=== PATIENT | female | born 1955 | race Caucasian/White ===

== ENCOUNTER 2024-10-19 13:15 | Outpatient (AMB) | payer MEDICARE, OTHER, SELFPAY ==
[2024-10-19 13:20] VITALS: BP 134/72; PULSE 68; O2SAT 97; BMI 43.8
--- NOTE | 2024-10-19 13:20 | A.OFFVIS_ITS ---
Vital Signs 10/19/24 13:20 Height 5 ft 6 in Weight 271 lb 2.697 oz BMI 43.8 BP 134/72 Blood Pressure Location Lt brachial Position Sitting Pulse 68 Pulse Source Pulse Oximeter Pulse Oximetry (%) 97 Oxygen Delivery Method Room Air Intake Visit Reasons: Dyspnea Diploma Maker Required: No Emergency Vehicle Operations Instructor: Emergency Vehicle Operations Instructor offered & declined Accompanied by: Self / Same As Patient Allergies amoxicillin Allergy (Verified 10/19/24 13:35) hives ciprofloxacin Allergy (Verified 10/19/24 13:35) Hives latex Allergy (Verified 10/19/24 13:35) vaginal itching Medication List - Last Reconciled 10/19/24 by Zoila Johnson LPN albuterol sulfate 90 mcg/actuation 2 puffs inhalation Q4-6H PRN amlodipine 5 mg PO DAILY cholecalciferol (vitamin D3) 50 mcg PO BID diclofenac sodium 1% (Arthritis Pain (diclofenac)) 2 grams topical QID fluticasone furoate 27.5 mcg/actuation (Children's Flonase Sensimist) 1 spray intranasal DAILY ivermectin 1% 1 appl topical DAILY levothyroxine 75 mcg PO DAILY losartan 50 mg PO DAILY omeprazole 40 mg PO DAILY pravastatin 10 mg PO DAILY HPI Comments Details: The patient is here for a pulmonary evaluation. The patient is a 69 year woman presenting with an abnormal pulmonary function study and CT scan. Apparently the patient has been having worsening shortness of breath. She has a rescue inhaler. She does use it as needed. Typically less than 2 times a week. She did undergo pulmonary function studies at [facility] which I personally reviewed. She appeared to have a mild obstruction consistent with obstructive airway disease in addition to that she had a mild restrictive ventilatory defect consistent with restrictive lung. She also had a mild decrease in the diffusing capacity but corrected to normal when corrected for the alveolar volume that suggest mainly extrinsic cause for the diffusion impairment. The patient also underwent a CT scan after having the abnormal pulmonary function study which I also personally reviewed. It appeared that her trachea appeared to be flat in a little bit consistent with tracheomalacia. This is mainly the mid and distal part of the trachea. In addition to that she has small subcentimeter pulmonary nodules have any follow-up in a year's time. No significant interstitial lung disease except she did have some areas of scarring primarily in the right middle lobe area and also at the bases just some areas of atelectasis and some reticular changes. Although no overt interstitial lung disease appreciated. And no significant ground-glass opacities appreciated. She was feeling much better prior to the appointment but then about a week ago she was eating popcorn and she aspirated some pop according to her lungs. She was coughing a lot she has been coughing significant amount of lately. Last night she did a little better but the night before she did have a hard time sleeping because of cough. She did have some codeine that she could take that helped relieve some of the symptoms. She was able to remove some specks out of the airways which she noticed some specks in her sputum. In the office she does have some wheezing right more than left. Will have her get an x-ray to see if there is any significant collapsibility atelectasis of the lungs from any foreign body. In the meantime though will go ahead and start her on inhaled cortical steroid. And although she has wheezing will avoid systemic steroids since she just recently had surgery of her hand. The patient also provide an aerobika CPT device to try to use it multiple times a day to try to help her with bronchopulmonary hygiene and mucus clearance and hopefully removal of any residual foreign body in her lungs. She will undergo a chest x-ray to assess for any significant findings. If she does have evidence of pneumonia I will send some antibiotics in the pharmacy as well. If the patient shows no improvement of her symptoms then a evaluation with bronchoscopy may be warranted just to look for any persistent foreign bodies. However, will hopefully avoid any semi invasive procedures she is able to clear up her own secretions at this time. [facility] Medical History (Updated 10/19/24 @ 22:09 by Yousuf Thorpe MD) Chronic restrictive lung disease Asthma Pulmonary nodules Social History (Updated 10/19/24 @ 13:28 by Zoila Johnson LPN) Patient Tobacco Use Status: Never used Tobacco Review of Systems Const Denies fever(s) Eyes Reports no additional complaints ENT Reports nasal congestion Card Denies chest pain and Reports dyspnea on exertion Resp Reports chest congestion, Reports cough, Reports dyspnea on exertion and Reports wheezing GI Reports no additional complaints Musc Reports no additional complaints Skin/Breast Denies rash Devin/Lymph Reports no additional complaints Aller/Immun Reports wheezing Physical Exam Vital Signs: Last Vital Signs Pulse 68 10/19/24 13:20 BP 134/72 10/19/24 13:20 Pulse Ox 97 10/19/24 13:20 Oxygen Delivery Method Room Air 10/19/24 13:20 BMI result Body Mass Index 43.8 Const General: comfortable HEENT Head: Yes normocephalic Neck Neck: Yes supple Chest Chest palpation & inspection: normal inspection of the chest Resp Effort & Inspection: normal respiratory effort and prolonged expiratory phase Auscultation: wheezes Cardio Heart sounds: S1 normal heart sound present and S2 normal heart sound present GI Palpation (GI): Soft to palpation Skin General skin exam: no rashes or lesions noted Extrem General: No clubbing and No cyanosis Results Reviewed Results Reviewed: Pwesonally reviewed CT chest from [facility] with pulmonary nodules, minimal areas of a telectasis and scarring, but no overt ILD PFTs, mild mix obstructive/restrictive ventilatory defect Assessment & Plan Assessment & Plan (1) Aspiration into airway: Code(s): T17.908A - Unspecified foreign body in respiratory tract, part unspecified causing other injury, initial encounter Category: Medical Qualifiers: Encounter type: initial encounter Qualified Code(s): T17.908A - Unspecified foreign body in respiratory tract, part unspecified causing other injury, initial encounter (2) Pulmonary nodules: Code(s): R91.8 - Other nonspecific abnormal finding of lung field Category: Medical (3) Asthma: Code(s): J45.909 - Unspecified asthma, uncomplicated Category: Medical Qualifiers: Asthma severity: moderate Asthma persistence: persistent Asthma complication type: with acute exacerbation Qualified Code(s): J45.41 - Moderate persistent asthma with (acute) exacerbation (4) Chronic restrictive lung disease: Comment: multifactorial Code(s): J98.4 - Other disorders of lung Category: Medical Plan start Wixela JOSELUIS as needed provided Aerobika to use 2-4 times aday CXR cough medicine as needed Will need a repeat CT chest to f/u with pulmonary nodules If cough persist and not able to clear FB from the lungs we can consider an airway survey with bronchoscopy F/U 1-2 months Orders: Orders XR chest 2V Today T17.908A - Unspecified foreign body in respiratory tract, part unspecified causing other injury, initial encounter Medications: New codeine-guaifenesin 10-100 mg/5 mL 10 mL PO Q6H 10 days PRN 300 mL 0RF cough fluticasone propion-salmeterol 250-50 mcg/dose (Wixela Inhub) 1 inh inhalation Q12H 30 days 60 ea 11RF budesonide-formoterol 160-4.5 mcg/actuation (Symbicort) 2 puffs inhalation BID 30 days 10.2 grams 11RF J44.89 - Other specified chronic obstructive pulmonary disease Coding Level of Care Code New Pt Level 5 (23949) Diagnoses Aspiration into airway, initial encounter T17.908A Encounter type: initial encounter Pulmonary nodules R91.8 Moderate persistent asthma with acute exacerbation J45.41 Asthma severity: moderate Asthma persistence: persistent Asthma complication type: with acute exacerbation Chronic restrictive lung disease J98.4 Time Spent (min) 60
--- OUTSIDE RECORDS SUMMARY | 2024-10-26 14:23 | XMS_ITS ---
Author Name [facility] Organization Unknown Results Test Name/Text Value Interpretation Date Range Source STONE WEIGHT 0.031g Normal [id number] [facility] T COMPONENT 1 Normal [id number] [facility] History of Medication Use Medication Directions Dispensed Refills Start Date End Date Stat oxyCODONE-acetaminophe n (PERCOCET) 5-325 mg per tablet Take 1 tablet by mouth Every 4 (four) to 6 (six) hours as needed for severe pain. Max Daily Amount: 6 tablets 10/01/2024 11/16/9999 active Potassium Citrate ER 15 MEQ (1620 MG) Tab CR 60 mEq 2 times a day. 07/03/2024 active ivermectin (SOOLANTRA) 1 % cream as needed. 04/09/2024 active oxyCODONE (ROXICODONE) 5 MG immediate release tablet Take 1 tablet (5 mg total) by mouth 4 times daily (every 6 hours) as needed for severe pain. Max Daily Amount: 20 mg 04/09/2024 active docusate sodium (COLACE) 100 MG capsule Take 1 capsule (100 mg total) by mouth 2 (two) times a day. 04/09/2024 active tamsulosin (FLOMAX) 0.4 MG capsule Take 1 capsule (0.4 mg total) by mouth daily. 04/09/2024 active phenazopyridine (PYRIDIUM) 200 MG tablet Take 1 tablet (200 mg total) by mouth 3 (three) times a day in the morning, mid-day and early evening. 04/09/2024 active diclofenac (VOLTAREN) 1 % gel as needed. 04/09/2024 active amLODIPine (NORVASC) 5 MG tablet Take 1 tablet (5 mg total) by mouth nightly. 03/19/2024 active lisinopril (PRINIVIL,ZeSTRIL) 10 MG tablet Take 1 tablet (10 mg total) by mouth daily. 03/05/2024 active amLODIPine (NORVASC) 5 MG tablet TAKE 2 TABLETS BY MOUTH 1 TIME EACH DAY. 03/05/2024 active Potassium Citrate ER 15 MEQ (1620 MG) Tab CR 03/05/2024 active OMEprazole (PriLOSEC) 40 MG capsule Take 1 capsule every day by oral route for 90 days. 03/05/2024 active levothyroxine (SYNTHROID, LEVOTHROID) 75 MCG tablet 03/05/2024 active Cholecalciferol (Vitamin D) 50 MCG (2000 UT) tablet 03/05/2024 active betamethasone acetate-betamethasone sodium phosphate (CELESTONE) injection 3 mg 10/31/2023 active No known medications No known medications 05/22/2023 active ivermectin 1 % cream APPLY ONCE DAILY TO AFFECTED AREA FOR ROSACEA 07/24/2022 active omeprazole (PriLOSEC) 40 mg capsule Take by mouth. 07/24/2022 active diclofenac sodium (VOLTAREN) 1 % gel APPLY TWO GRAMS TO HANDS AND FEET UP TO 4 TIMES A DAY NEEDED 07/24/2022 active lisinopriL (PRINIVIL) 10 mg tablet 10 mg in the morning. 02/14/2023 active swcmreopr-sxrowqlj-plg -hyalur 40-5-3.3 mg tablet daily. 07/24/2022 active levothyroxine (SYNTHROID) 75 mcg tablet Take 75 mcg by mouth. 07/24/2022 active amLODIPine (NORVASC) 5 mg tablet amlodipine 5 mg tablet 07/24/2022 active Problems Problem Status Onset Date Problem Type Date of Resolution Source 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, unspecified osteoarthritis type active [facility]
== END 2024-10-19 14:10 | disposition home or self-care (01) ==
PROVIDERS: PCP Family Medicine; Referring Provider Family Medicine; Visit Provider Hospitalist
DX: T17.920A Food in respiratory tract, part unspecified causing asphyxiation, initial encounter (principal); R91.8 Other nonspecific abnormal finding of lung field; J45.41 Moderate persistent asthma with (acute) exacerbation; J98.4 Other disorders of lung
CPT/HCPCS: 99205

== ENCOUNTER 2024-10-19 13:15 | Outpatient (REF) | payer MEDICARE, OTHER, SELFPAY ==
--- NOTE | ~2024-10-19 | XR_ITS ---
EXAMINATION: XR CHEST CLINICAL INFORMATION: T17.908A - Unspecified foreign body in respiratory tract, part unspecified. COMPARISON: None available. TECHNIQUE: 2 views of the chest were obtained. FINDINGS: Lung volumes are low. There is no gross pneumothorax. Heart size is normal. Multilevel degenerative changes in the thoracic spine. No significant pleural effusion. Minimal linear opacities in the bilateral [id number] lungs, possibly representing subsegmental atelectasis/scar. Prominent left hilar density, possibly prominent nodes. Direct correlation with prior images is recommended and if prior images are provided, an addendum will be dictated. In the absence of prior images, CT scan could be considered for further evaluation. XR/XR chest 2V IMPRESSION: 1. Minimal linear opacities in the bilateral wrz-fq-[id number] lungs, possibly representing subsegmental atelectasis/scar. 2. Prominent left hilar density, possibly representing prominent lymph nodes nodes. Direct correlation with prior images is recommended and if prior images are provided, an addendum will be dictated. In the absence of prior images, CT scan could be considered for further evaluation. This study was presented today October 20, 2024 for interpretation. Stat results provided at this time as requested by referring provider. Electronically signed by: Susie Green MD 10/20/2024 10:28 AM ROB
== END 2024-10-19 13:16 | disposition home or self-care (01) ==
LOC: HO.XRAY 13:15
PROVIDERS: PCP Family Medicine; Referring Provider Family Medicine; Visit Provider Hospitalist
DX: R91.8 Other nonspecific abnormal finding of lung field (principal); T17.908A Unspecified foreign body in respiratory tract, part unspecified causing other injury, initial encounter; J45.41 Moderate persistent asthma with (acute) exacerbation; J98.4 Other disorders of lung
CPT/HCPCS: 71046; 99202

== ENCOUNTER → 2024-10-28 12:16 | Day surgery (SDC) | payer MEDICARE, SELFPAY ==
--- NOTE | 2024-10-26 14:13 | HO.ANESPROP2 ---
Documented by User: Mare Chang NP 10/26/24 14:13 HPI - Anesthesia Eval Consult details Narrative: 69yo F for Bronchoscopy Fiberoptic PMFSH Active Problems Active Problems: All Active Problems Chronic restrictive lung disease (Acute) Asthma (Acute) Pulmonary nodules (Acute) Aspiration into airway (Acute) Past Medical History Medical History Chronic restrictive lung disease Asthma Pulmonary nodules Social History Social History Household Members: Spouse and Children Housing: House Do you presently have visiting nurse or other home services: No Patient Tobacco Use Status: Never used Tobacco service: No Meds Allergies Allergy/AdvReac Type Severity Reaction Status Date / Time amoxicillin Allergy hives Verified 10/28/24 14:35 ciprofloxacin Allergy Hives Verified 10/28/24 14:35 latex Allergy vaginal Verified 10/28/24 14:35 itching Home Medications ?Medication ?Instructions ?Recorded ?Confirmed ?Last Taken ?Type amlodipine 5 mg tablet 5 mg PO DAILY 10/19/24 10/28/24 10/27/24 History cholecalciferol (vitamin D3) 50 50 mcg PO BID 10/19/24 10/28/24 10/27/24 History mcg (2,000 unit) capsule levothyroxine 75 mcg capsule 75 mcg PO DAILY@0600 10/19/24 10/28/24 10/27/24 History losartan 50 mg tablet 50 mg PO DAILY 10/19/24 10/28/24 10/27/24 History omeprazole 40 mg capsule,delayed 40 mg PO DAILY@0630 10/19/24 10/28/24 10/28/24 08:30 History release pravastatin 10 mg tablet 10 mg PO BEDTIME 10/19/24 10/28/24 10/27/24 History codeine 10 mg-guaifenesin 100 mg/5 5 ml PO Q6H PRN cough 10/28/24 10/28/24 10/27/24 History mL oral liquid fluticasone propionate 50 1 spray intranasal DAILY 10/28/24 10/28/24 10/27/24 History mcg/actuation nasal spray,suspension potassium citrate 10 mEq (1,080 20 meq PO TID 10/28/24 10/28/2424 History mg) tablet,extended release Assessment and Plan Assessment Anesthesia Assessment: Chart Reviewed Documented by User: Chichi Yang MD 11/02/24 14:11 PMFSH Past Medical History Medical History Chronic restrictive lung disease Asthma Pulmonary nodules Family History Family history of problems with anesthesia: No Surgical History History of Problems with Anesthesia: No Social History Social History Household Members: Spouse and Children Housing: House Do you presently have visiting nurse or other home services: No Patient Tobacco Use Status: Never used Tobacco service: No Meds Allergies Allergy/AdvReac Type Severity Reaction Status Date / Time amoxicillin Allergy hives Verified 10/28/24 14:35 ciprofloxacin Allergy Hives Verified 10/28/24 14:35 latex Allergy vaginal Verified 10/28/24 14:35 itching Home Medications ?Medication ?Instructions ?Recorded ?Confirmed ?Last Taken ?Type amlodipine 5 mg tablet 5 mg PO DAILY 10/19/24 10/28/24 10/27/24 History cholecalciferol (vitamin D3) 50 50 mcg PO BID 10/19/24 10/28/24 10/27/24 History mcg (2,000 unit) capsule levothyroxine 75 mcg capsule 75 mcg PO DAILY@0600 10/19/24 10/28/24 10/27/24 History losartan 50 mg tablet 50 mg PO DAILY 10/19/24 10/28/24 10/27/24 History omeprazole 40 mg capsule,delayed 40 mg PO DAILY@0630 10/19/24 10/28/24 10/28/24 08:30 History release pravastatin 10 mg tablet 10 mg PO BEDTIME 10/19/24 10/28/24 10/27/24 History codeine 10 mg-guaifenesin 100 mg/5 5 ml PO Q6H PRN cough 10/28/24 10/28/24 10/27/24 History mL oral liquid fluticasone propionate 50 1 spray intranasal DAILY 10/28/24 10/28/24 10/27/24 History mcg/actuation nasal spray,suspension potassium citrate 10 mEq (1,080 20 meq PO TID 10/28/24 10/28/24 10/27/24 History mg) tablet,extended release Exam Airway Mallampati Class: II TM Dist: >3cm Neck ROM: Full Heart: rrr Lungs: cta Assessment and Plan Assessment Anesthesia Assessment: Anesthesia Plan Discussed Final Anesthetic Review Family History of Problems with Anesthesia: No History of Problems with Anesthesia: No NPO: Yes ASA Class: III Final Preanesthetic Review: No Changes in Pt Med Stat, Meds/Allgs Chart Reviewed, Consent Obtained/Reviewed and Anes Risks/Benef Reviewed Patient Risk: Intermediate Procedure Risk: Low Anesthetic Plan Anesthetic Plan: GA
--- NOTE | 2024-10-28 | ECG_ITS ---
Test Reason : New onset arrhythmia Blood Pressure : / mmHG Vent. Rate : 115 BPM Atrial Rate : 241 BPM P-R Int : 000 ms QRS Dur : 082 ms QT Int : 316 ms P-R-T Axes : 086 036 -28 degrees QTc Int : 437 ms Atrial flutter with variable A-V block Baseline wander Abnormal ECG No previous ECGs available Referred By: Isabel Vázquez Electronically Signed By:KASSIE LAZO MD
--- NOTE | 2024-10-28 12:33 | MHC.SHP ---
Pre-Procedural Eval Section A - 24 Hr Update-Section A only Date of Service: 10/28/24 The patient is an INPATIENT: No Changes since office visit: No Cold of Flu in the past 2 weeks, No New Medical Problems, No Changes in Medication and No Patient answered all questions The patient has been examined within 24 hours of the surgical procedure. The History & Physical has been completed within 30 days and I have reviewed it.: Yes Section B - Complete if H&P > 30 days Chief Complaint: Unspecified foreign body in respiratory tract, par Allergies: Allergies Allergy/AdvReac Type Severity Reaction Status Date / Time amoxicillin Allergy hives Verified 10/19/24 13:35 ciprofloxacin Allergy Hives Verified 10/19/24 13:35 latex Allergy vaginal Verified 10/19/24 13:35 itching Plan I have reviewed the history and physical and performed a pertinent physical examination on my patient. No changes have occurred unless specified. Time Spent With Patient Time: Total time managing care of this patient today ____ minutes.
[2024-10-28 12:55] VITALS: BP 152/60; PULSE 117; RESP 18; TEMP 37.5; O2SAT 95; BMI 42.0
== END ==
LOC: HO.SSS 12:17
PROVIDERS: PCP Family Medicine; Visit Provider Hospitalist
DX: T17.908A Unspecified foreign body in respiratory tract, part unspecified causing other injury, initial encounter (principal); Z53.8 Procedure and treatment not carried out for other reasons; I49.9 Cardiac arrhythmia, unspecified; J98.4 Other disorders of lung; R91.8 Other nonspecific abnormal finding of lung field; J45.909 Unspecified asthma, uncomplicated
CPT/HCPCS: 93005; J0171; J2003

== ENCOUNTER → 2024-10-28 13:51 | Outpatient (BNV) | payer MEDICARE, SELFPAY | PROVIDERS: PCP Family Medicine; Visit Provider Internal Medicine Cardiovascular Disease | DX: R00.0 Tachycardia, unspecified (principal); I48.92 Unspecified atrial flutter; R94.31 Abnormal electrocardiogram [ECG] [EKG] | CPT/HCPCS: 93010 ==

== ENCOUNTER 2024-10-28 14:17 | Inpatient (IN) | payer MEDICARE, OTHER, SELFPAY ==
[2024-10-28] VITALS (8 sets, daily range): BP systolic 123–150; BP diastolic 53–82; PULSE 72–124; RESP 14–27; TEMP 36.6–37.1; O2SAT 93–95; BMI 33.3
--- NOTE | ~2024-10-28 | XR_ITS ---
EXAMINATION: XR CHEST CLINICAL INFORMATION: dyspnea, cough COMPARISON: 10/19/2024. TECHNIQUE: Frontal view of the chest was obtained. FINDINGS: Cardiac, hilar, and mediastinal contours are normal. The lungs are clear bilaterally. No pneumothorax or effusion. No focal osseous or soft tissue abnormalities. XR/XR chest 1V IMPRESSION: No active pulmonary disease. No definite hilar abnormality. Electronically signed by: Clay Ocampo MD 10/28/2024 03:[address] [facility]
--- NOTE | ~2024-10-28 | CT_ITS ---
EXAMINATION: CT angio chest PE protocol CLINICAL INFORMATION: at [facility] COMPARISON: Chest radiograph 10/28/2024 TECHNIQUE: Prior to contrast administration, noncontrast localization images were obtained. Subsequently, multidetector volumetric imaging was performed through the chest following the administration of 65 mL Omnipaque 350 intravenous contrast. No contrast reaction reported Sagittal, coronal, and MIP oblique sagittal reformatted images were obtained on the CT workstation, uploaded to PACS, and reviewed. This CT examination was performed using dose optimization techniques as appropriate, variously including the following: * Automated exposure control * Adjustment of mA and/or kV according to patient size (this includes techniques or standardized protocols for targeted exams where dose is matched to indication/reason for exam; i.e. extremities or head) Use of iterative reconstruction technique Total exam dose-length product 441 mGy-cm FINDINGS: QUALITY OF STUDY/CONTRAST BOLUS: Satisfactory. PULMONARY ARTERIES: No central or segmental pulmonary emboli. THORACIC AORTA: No aneurysm or dissection. LUNG: Central airways are patent. Respiratory motion artifact limits evaluation of the lungs. Right lower lobe patchy opacities and small right pleural effusion. No suspicious pulmonary nodule. No pneumothorax. MEDIASTINUM: Normal heart size. No pericardial effusion. Coronary arterial calcifications are present. No hilar or mediastinal lymphadenopathy. No evidence of septal bowing or right heart strain. Normal thyroid. CHEST WALL/AXILLA: No axillary or internal mammary lymphadenopathy. VISUALIZED ABDOMEN: Mild reflux of contrast into the hepatic veins to suggest increased right heart pressure. Small hiatal hernia. Splenomegaly measuring up to 13 cm in maximum transaxial dimension. OSSEOUS STRUCTURES: No suspicious sclerotic or lytic bone lesions are identified. Mild multilevel thoracic spondylosis. CT/CT angio chest PE protocol IMPRESSION: 1. No central or segmental pulmonary emboli. Mild reflux of contrast into the hepatic veins to suggest increased right heart pressure. 2. Right lower lobe patchy opacities favored to represent infectious/inflammatory etiology. 3. Small hiatal hernia. 4. Splenomegaly. VTE: negative. Electronically signed by: Tiffany Hernández DO 10/29/2024 04:30 PM [facility]
--- NOTE | 2024-10-28 14:53 | ECG_ITS ---
Test Reason : TACHYCARDIA Blood Pressure : / mmHG Vent. Rate : 126 BPM Atrial Rate : 252 BPM P-R Int : 000 ms QRS Dur : 076 ms QT Int : 254 ms P-R-T Axes : -77 030 016 degrees QTc Int : 367 ms Atrial flutter with 2:1 A-V conduction Poor R wave progression Abnormal ECG When compared with ECG of 28-OCT-2024 13:51, T wave inversion no longer evident in Lateral leads Referred By: Leonardo Martines Electronically Signed By:KASSIE LAZO MD
--- NOTE | 2024-10-28 15:00 | ED.GENADULT ---
HPI - General Adult General Chief complaint: Arrhythmia/Palpitations Stated complaint: Aflutter Time Seen by Provider: 10/28/24 14:33 Source: patient, RN notes reviewed and old records reviewed Mode of arrival: ambulatory Limitations: no limitations History of Present Illness ED Provider: Conrad HPI narrative: 69-year-old female with past medical history significant for chronic kidney disease, restrictive lung disease, obesity presents for evaluation of cardiac arrhythmia. Patient presents from short-stay surgery. She was due to have a bronchoscopy today. She reports an aspiration episode about 2 weeks ago and has had a continued cough The patient had a preop EKG today that showed atrial flutter. She denies any chest pain, palpitations. She has had a cough for the last 2 weeks She reports that she had hand surgery in August, 2 months ago and her preop EKG at that time did not show any evidence of a flutter and the patient has no other history of a flutter The patient feels well other than a cough Related Data Home Medications ?Medication ?Instructions ?Recorded ?Confirmed albuterol sulfate 90 mcg/actuation 2 puff inhalation Q4-6H PRN SOB 10/19/24 10/28/24 aerosol inhaler amlodipine 5 mg tablet 5 mg PO DAILY 10/19/24 10/28/24 cholecalciferol (vitamin D3) 50 50 mcg PO BID 10/19/24 10/28/24 mcg (2,000 unit) capsule diclofenac sodium 1 % topical gel 2 g topical QID 10/19/24 10/28/24 (Arthritis Pain (diclofenac)) fluticasone furoate 27.5 1 spray intranasal DAILY 10/19/24 10/28/24 mcg/actuation nasal spray,suspension (Children's Flonase Sensimist) ivermectin 1 % topical cream 1 appl topical DAILY 10/19/24 10/28/24 levothyroxine 75 mcg capsule 75 mcg PO DAILY 10/19/24 10/28/24 losartan 50 mg tablet 50 mg PO DAILY 10/19/24 10/28/24 omeprazole 40 mg capsule,delayed 40 mg PO DAILY 10/19/24 10/28/24 release pravastatin 10 mg tablet 10 mg PO DAILY 10/19/24 10/28/24 Previous Rx's ?Medication ?Instructions ?Recorded codeine 10 mg-guaifenesin 100 mg/5 10 ml PO Q6H PRN cough 10 days 10/19/24 mL oral liquid #300 mL fluticasone 250 mcg-salmeterol 50 1 inh inhalation Q12H 30 days #60 10/19/24 mcg/dose blistr powdr for ea inhalation (James Montesinos) benzonatate 200 mg capsule 200 mg PO BID PRN cough 30 days 10/25/24 #60 caps doxycycline hyclate 100 mg capsule 100 mg PO BID 10 days #20 caps 10/25/24 Allergies Allergy/AdvReac Type Severity Reaction Status Date / Time amoxicillin Allergy hives Verified 10/28/24 14:35 ciprofloxacin Allergy Hives Verified 10/28/24 14:35 latex Allergy vaginal Verified 10/28/24 14:35 itching Review of Systems Constitutional: Constitutional: Denies body ache(s), Denies chills, Denies fever(s) and Denies headache(s) Eyes: Eyes: Denies blurry vision ENT: Denies vertigo, Denies dizziness and Denies headache(s) Cardiovascular: Cardiovascular: Reports pedal edema, Reports leg edema and Reports dyspnea Respiratory: Respiratory: Reports cough and Reports dyspnea Gastrointestinal: Gastrointestinal: Denies abdominal pain, Denies nausea and Denies vomiting Musculoskeletal: Musculoskeletal: Denies back pain Integumentary/Breasts: Skin/Breast: Denies rash Neurologic: Denies vertigo, Denies dizziness and Denies headache(s) Psychiatric: Psychiatric: Denies anxiety [facility] Past Medical History Medical History (Updated 10/28/24 @ 15:11 by Leonardo Martines) Chronic restrictive lung disease Asthma Pulmonary nodules Social History Social History (Updated 10/19/24 @ 13:28 by Zoila Johnson LPN) Patient Tobacco Use Status: Never used Tobacco Smoked in Last 30 Days: No Use of substances other than those prescribed or required for medical reasons: No Advance Directives: No Advance Directives Information Provided: Yes Physical Exam ED Vital Signs: Vital Signs - 24 hr 10/28/24 14:30 10/28/24 15:04 10/28/24 15:34 Temperature 98.8 F 98.3 F Pulse Rate 121 H 117 H 110 H Respiratory Rate 20 14 Blood Pressure 144/75 H 144/75 H 147/73 H Pulse Oximetry 95 93 Oxygen Delivery Method Room Air Room Air 10/28/24 16:14 10/28/24 17:44 Temperature Pulse Rate 124 H 115 H Respiratory Rate 27 H Blood Pressure 125/53 L 143/75 H Pulse Oximetry 94 Oxygen Delivery Method Room Air BMI result Body Mass Index 33.3 Const General: healthy appearing, comfortable, no acute distress, alert and awake Nutritional Appearance: well nourished Orientation/consciousness: patient oriented x3 HENMT Head: Yes normocephalic and Yes atraumatic Eyes Eyelids: Yes eyelids normal Conjunctivae: conjunctivae normal Sclerae: sclerae normal Corneas: corneas normal Pupils: Equal, round and reactive pupils present EOM: EOMs intact bilaterally Neck Neck: Yes full ROM Resp Effort & Inspection: normal respiratory effort, able to speak in complete sentences and not labored Cardio Rate: not bradycardic and tachycardic Rhythm: abnormal rhythm GI Inspection: No distended Palpation (GI): Soft to palpation, not firm, nontender, no guarding and not rigid Skin General skin exam: elasticity normal Neuro General: patient oriented x3 Cranial nerves: Yes Equal, round and reactive pupils present and Yes Bilaterally intact EOM present Cognition (Neuro): normal cognition Extrem Other: Moving all extremities well without any obvious deformities Course Reevaluation(s) Reevaluation #1: Patient had minimal improvement with Cardizem bolus, we will start low-dose Cardizem drip and titrate as necessary. She remains tachycardic and a flutter at about 120. She will likely require admission due to rapid a flutter. The remainder of her workup did not show any significant abnormalities. The patient has known chronic kidney disease Time: 16:54 Medications Administered Generic Name Dose Route Start Last Admin Trade Name Freq PRN Reason Stop Dose Admin Diltiazem HCl 125 mg/ Sodium 125 mls @ 0 mls/hr 10/28/24 16:45 10/28/24 17:44 Chloride IVCONT 10 mg/hr .Q0M [place] 10 mls/hr Administration Protocol Per Protocol Discontinued Medications Generic Name Dose Route Start Last Admin Trade Name Freq PRN Reason Stop Dose Admin Diltiazem HCl 20 mg 10/28/24 14:53 10/28/24 15:04 Diltiazem Hcl 50 Mg/10 Ml Vial IVPUSH 10/28/24 14:54 20 mg STAT STA Administration Sodium Chloride 1,000 mls @ 999 mls/hr 10/28/24 15:30 10/28/24 17:50 Ns IV 10/28/24 16:30 Infused .Q1H1M [place] Infusion Medical Decision Making Medical Decision Making [facility] Narrative: 69-year-old female with past medical history as documented above presents for evaluation of cardiac arrhythmia. The patient presents from short stay surgery. She was found to have an incidental finding of atrial flutter which is new for her. I suspect that her aspiration incident 2 weeks ago is likely contributing to her new onset atrial flutter. We will check labs, chest x-ray, repeat EKG. Differential Diagnosis Differential Diagnoses: The differential diagnosis associated with the presentation includes Atrial flutter Atrial fibrillation Aspiration pneumonia Bronchitis Admission/Observation Consideration of admission/observation: Escalation of care including admission/observation considered Lab Data MDM Lab Attestation statement: I reviewed the patient's lab results. No leukocytosis or anemia. Normal platelet count. No electrolyte abnormalities. The patient does have chronic kidney disease and her BUN of 25 with creatinine of 1.42 reflects this. 10/28/24 15:34 10/28/24 15:33 Labs: Lab Results 10/28/24 10/28/24 10/28/24 Range/Units 15:27 15:33 15:34 WBC 7.8 (4.8-10.8) X10*3/uL RBC 4.40 (4.20-5.50) X10*6/uL Hgb 13.0 (12.0-16.0) g/dl Hct 38.7 (37.0-47.0) % MCV 88.0 (80.0-98.0) fL MCH 29.5 (27.0-33.0) pg MCHC 33.6 (31.0-35.0) g/dl RDW 13.1 (11.0-16.0) % Plt Count 249 (160-400) X10*3/uL MPV 10.6 (9.4-12.3) fL Immature Gran % (Auto) 0.5 H (0.0-0.4) % Neut % (Auto) 76.5 H (45-73) % Lymph % (Auto) 13.8 L (20-40) % [place] % (Auto) 7.3 (2-11) % Eos % (Auto) 1.5 (0-4) % Baso % (Auto) 0.4 (0-2) % Lymph # (Auto) 1.1 L (1.2-4.9) X10*3/uL [place] # (Auto) 0.6 (0.1-1.2) X10*3/uL Eos # (Auto) 0.1 (0.0-0.4) X10*3/uL Baso # (Auto) 0.0 (0.0-0.2) X10*3/uL Abs Immat Gran (auto) 0.04 H (0.00-0.03) X10*3/uL Absolute Neuts (auto) 5.9 (2.0-8.3) x10*3/uL Absolute Nucleated RBC 0.000 (0.0-0.012) X10*3/uL Nucleated RBC % (auto) 0.0 (0.0-0.2) /100WBC PT 11.8 (10.9-12.4) SEC INR 1.0 (0.9-1.1) Sodium 140 (135-145) mmol/L Potassium 4.6 (3.3-5.1) mmol/L Chloride 105 (96-108) mmol/L Carbon Dioxide 26 (22-29) mmol/L Anion Gap 14 (12-20) BUN 25 H (9-16) mg/dL Creatinine 1.42 H (0.5-1.4) mg/dL Estim Creat Clear Calc 41.6 Estimated GFR 37 Random Glucose 132 H (60-115) mg/dL Calcium 10.0 (8.4-10.2) mg/dL Magnesium 1.9 (1.6-2.6) mg/dL Total Bilirubin 1.6 H (0.0-1.0) mg/dL AST 23 (5-31) U/L ALT 23 (0-31) U/L Alkaline Phosphatase 108 (39-117) U/L Troponin I High Sens 2.8 (<3.5-17.0) ng/L B-Natriuretic Peptide 64 (<100) pg/mL Total Protein 7.1 (6.5-8.0) g/dL Albumin 3.8 (3.5-5.0) g/dL Lipase 9 (8-78) U/L Urine Color Urine Appearance Urine pH (5.0-9.0) Ur Specific [place] (1.005-1.025) Urine Protein (Neg-Trace) mg/dL Urine Glucose (UA) (Negative) mg/dL Urine Ketones (Negative) mg/dL Urine Blood (Negative) Urine Nitrite (Negative) Ur Leukocyte Esterase (Negative) Urine RBC (0-2) /HPF Urine WBC (0-5) /HPF Ur Squamous Epith Cells (0-2) /HPF Urine Bacteria (None Seen) Hyaline Casts (0-2) /LPF Influenza Type A (PCR) NEGATIVE (Negative) Influenza Type B (PCR) NEGATIVE (Negative) RSV RNA Qual (PCR) NEGATIVE (Negative) SARS-CoV-2 RNA (RT-PCR) NEGATIVE (Negative) 10/28/24 Range/Units 15:42 WBC (4.8-10.8) X10*3/uL RBC (4.20-5.50) X10*6/uL Hgb (12.0-16.0) g/dl Hct (37.0-47.0) % MCV (80.0-98.0) fL MCH (27.0-33.0) pg MCHC (31.0-35.0) g/dl RDW (11.0-16.0) % Plt Count (160-400) X10*3/uL MPV (9.4-12.3) fL Immature Gran % (Auto) (0.0-0.4) % Neut % (Auto) (45-73) % Lymph % (Auto) (20-40) % [place] % (Auto) (2-11) % Eos % (Auto) (0-4) % Baso % (Auto) (0-2) % Lymph # (Auto) (1.2-4.9) X10*3/uL [place] # (Auto) (0.1-1.2) X10*3/uL Eos # (Auto) (0.0-0.4) X10*3/uL Baso # (Auto) (0.0-0.2) X10*3/uL Abs Immat Gran (auto) (0.00-0.03) X10*3/uL Absolute Neuts (auto) (2.0-8.3) x10*3/uL Absolute Nucleated RBC (0.0-0.012) X10*3/uL Nucleated RBC % (auto) (0.0-0.2) /100WBC PT (10.9-12.4) SEC INR (0.9-1.1) Sodium (135-145) mmol/L Potassium (3.3-5.1) mmol/L Chloride (96-108) mmol/L Carbon Dioxide (22-29) mmol/L Anion Gap (12-20) BUN (9-16) mg/dL Creatinine (0.5-1.4) mg/dL Estim Creat Clear Calc Estimated GFR Random Glucose (60-115) mg/dL Calcium (8.4-10.2) mg/dL Magnesium (1.6-2.6) mg/dL Total Bilirubin (0.0-1.0) mg/dL AST (5-31) U/L ALT (0-31) U/L Alkaline Phosphatase (39-117) U/L Troponin I High Sens (<3.5-17.0) ng/L B-Natriuretic Peptide (<100) pg/mL Total Protein (6.5-8.0) g/dL Albumin (3.5-5.0) g/dL Lipase (8-78) U/L Urine Color Yellow Urine Appearance Clear Urine pH 6.5 (5.0-9.0) Ur Specific [place] <= 1.005 (1.005-1.025) Urine Protein Negative (Neg-Trace) mg/dL Urine Glucose (UA) Negative (Negative) mg/dL Urine Ketones Negative (Negative) mg/dL Urine Blood Negative (Negative) Urine Nitrite Negative (Negative) Ur Leukocyte Esterase Negative (Negative) Urine RBC 0-2 (0-2) /HPF Urine WBC 0-5 (0-5) /HPF Ur Squamous Epith Cells 0-2 (0-2) /HPF Urine Bacteria None Seen (None Seen) Hyaline Casts 0-2 (0-2) /LPF Influenza Type A (PCR) (Negative) Influenza Type B (PCR) (Negative) RSV RNA Qual (PCR) (Negative) SARS-CoV-2 RNA (RT-PCR) (Negative) Independent Interpretation I performed an independent interpretation of an: EKG (Atrial flutter with a rate of [address] segment elevations or depressions) Discharge Plan Discharge Clinical Impression: Atrial flutter Patient Disposition: Admitted As Inpatient Prescriptions: No Action doxycycline hyclate 100 mg capsule 100 mg PO BID 10 Days Qty: 20 0RF benzonatate 200 mg capsule 200 mg PO BID PRN (Reason: cough) 30 Days Qty: 60 6RF albuterol sulfate 90 mcg/actuation HFA aerosol inhaler 2 puff inhalation Q4-6H PRN (Reason: SOB) amlodipine 5 mg tablet 5 mg PO DAILY diclofenac sodium [Arthritis Pain (diclofenac)] 1 % gel 2 g topical QID Rx Instructions: apply to single elbow, wrist or hand; for hand includes palm/fingers/back of hand Children's Flonase Sensimist 27.5 mcg/actuation spray,suspension 1 spray intranasal DAILY Rx Instructions: into each nostril ivermectin 1 % cream 1 appl topical DAILY levothyroxine 75 mcg capsule 75 mcg PO DAILY losartan 50 mg tablet 50 mg PO DAILY omeprazole 40 mg capsule,delayed release(DR/EC) 40 mg PO DAILY cholecalciferol (vitamin D3) 50 mcg (2,000 unit) capsule 50 mcg PO BID pravastatin 10 mg tablet 10 mg PO DAILY codeine-guaifenesin 10-100 mg/5 mL liquid 10 ml PO Q6H PRN (Reason: cough) 10 Days Qty: 300 0RF fluticasone propion-salmeterol [Wixela Inhub] 250-50 mcg/dose blister with device 1 inh inhalation Q12H 30 Days Qty: 60 11RF Print Language: Croatian
[2024-10-28] MEDS: dilTIAZem HCL 50 MG/10 ML VIAL 20 MG IVPUSH (15:04)
[2024-10-28 15:41] LABS: MANUAL DIFF FLAG NO
[2024-10-28 15:45] LABS: Basophils Percent Auto 0.4 % (0-2); Eosinophils Absolute Auto 0.1 X10*3/uL (0.0-0.4); Eosinophils Percent Auto 1.5 % (0-4); Hematocrit 38.7 % (37.0-47.0); Imm Gran Abs Auto 0.04 X10*3/uL (0.00-0.03); Imm Gran Pct Auto 0.5 % (0.0-0.4); Lymphocytes Absolute Auto 1.1 X10*3/uL (1.2-4.9); Lymphocytes Percent Auto 13.8 % (20-40); Mean Corpuscular HGB Conc 33.6 g/dl (31.0-35.0); Mean Corpuscular Hemoglobin 29.5 pg (27.0-33.0); Mean Platelet Volume 10.6 fL (9.4-12.3); Monocytes Absolute Auto 0.6 X10*3/uL (0.1-1.2); Monocytes Percent Auto 7.3 % (2-11); Neutrophils Absolute Auto 5.9 x10*3/uL (2.0-8.3); Neutrophils Percent Auto 76.5 % (45-73); Platelet Count 249 X10*3/uL (160-400); Red Cell Distribution Width 13.1 % (11.0-16.0); White Blood Count 7.8 X10*3/uL (4.8-10.8)
[2024-10-28 15:51] LABS: Appearance Urine Clear; Color Urine Yellow; Glucose Urine UA Negative (Negative); Leukocyte Esterase Urine Negative (Negative); Nitrite Urine Negative (Negative); PH 6.5 (5.0-9.0); Specific Gravity - Urine <= 1.005 (1.005-1.025); Urine Blood Negative (Negative); Urine Ketones Negative (Negative); Urine Protein Negative (Neg-Trace)
--- NOTE | 2024-10-28 15:51 | MHC.EDTECH ---
EKG delay due to All EKG's being used. nurse aware.
[2024-10-28 15:53] LABS: Prothrombin Time 11.8 SEC (10.9-12.4)
[2024-10-28 15:53] LABS: Bacteria Urine None Seen (None Seen); Hyaline Casts Urine 0-2 /LPF (0-2); RBC Urine 0-2 /HPF (0-2); Squamous Epithelial Cell Urine 0-2 /HPF (0-2); WBC Urine 0-5 /HPF (0-5)
[2024-10-28 15:57] LABS: Alanine Aminotransferase 23 U/L (0-31); Albumin Level 3.8 g/dL (3.5-5.0); Alkaline Phosphatase 108 U/L (39-117); Anion Gap 14 (12-20); Aspartate Amino Transferase 23 U/L (5-31); Bilirubin Total 1.6 mg/dL (0.0-1.0); Blood Urea Nitrogen 25 mg/dL (9-16); Carbon Dioxide 26 mmol/L (22-29); Chloride 105 mmol/L (96-108); Creatinine Clr Calc Pharmacy 41.6; Estimated Glomerular Filt Rate 37; Glucose Random 132 mg/dL (60-115); Lipase 9 U/L (8-78); Magnesium 1.9 mg/dL (1.6-2.6); Potassium 4.6 mmol/L (3.3-5.1); Sodium 140 mmol/L (135-145); Total Protein 7.1 g/dL (6.5-8.0)
[2024-10-28 16:01] LABS: Troponin-I High Sensitivity 2.8 ng/L (<3.5-17.0)
[2024-10-28 16:02] LABS: B Type Natriuretic Peptide 64 pg/mL (<100)
[2024-10-28] MEDS: 0.9 % Sodium Chloride 1,000 ML 999 ML IV (16:17)
[2024-10-28 16:20] LABS: Influenza A PCR NEGATIVE (Negative); Influenza B PCR NEGATIVE (Negative); Resp Syncy Virus RNA Qual PCR NEGATIVE (Negative); SARS COV2 PCR INHOUSE NEGATIVE (Negative)
--- NOTE | 2024-10-28 16:40 | MHC.EDTECH ---
EKG Was done but still shows up undone
[2024-10-28] MEDS: dilTIAZem HCL 125 MG in 0.9 % Sodium Chloride 100 ML 10 MG IVCONT (17:44)
--- NOTE | 2024-10-28 19:03 | P.HPHOSP_ITS ---
History of Present Illness Date of Service: 10/28/24 Attending physician on admission: Tavon Bear Chief Complaint: Atrial flutter Pt is a 69-year-old female with a PMH significant for?restrictive lung disease, HTN, HLD, hypothyroidism, GERD, and CKD 3 who presents to the ED from short stay surgery after preop EKG showed atrial flutter. Patient was to undergoing bronchoscopy today after an aspiration episode approximately 2 weeks ago that has resulted in a continual cough. ? In the ED pt was tachycardic up to 124, tachypneic up to 27, and hypertensive as high as 152/60. Labs were significant for creatinine of 1.42, otherwise grossly unremarkable and WNL. No leukocytosis. Stable H&H. No significant electrolyte abnormalities. Hepatic function baseline. Troponin 2.8. BNP 64. CXR showed no acute pulmonary disease. EKG demonstrated atrial flutter with 2:1 av conduction. Pt was treated with IVF, diltiazem 20 mg IV, and started on diltiazem drip. Pt will be admitted to the hospital for treatment and further evaluation of new onset atrial flutter requiring diltiazem drip. [facility] Medical History (Updated 10/28/24 @ 15:11 by Leonardo Martines) Chronic restrictive lung disease Asthma Pulmonary nodules Social History (Updated 10/19/24 @ 13:28 by Zoila Johnson LPN) Patient Tobacco Use Status: Never used Tobacco Smoked in Last 30 Days: No Use of substances other than those prescribed or required for medical reasons: No Advance Directives: No Advance Directives Information Provided: Yes Meds Allergies Allergy/AdvReac Type Severity Reaction Status Date / Time amoxicillin Allergy hives Verified 10/28/24 14:35 ciprofloxacin Allergy Hives Verified 10/28/24 14:35 latex Allergy vaginal Verified 10/28/24 14:35 itching Active Medications: Current Medications Diltiazem HCl 125 mg/ Sodium (Chloride) 125 mls @ 0 mls/hr IVCONT .[facility]M [facility]; Protocol Last Admin: 10/28/24 17:44 Dose: 10 mg/hr, 10 mls/hr Home Medications ?Medication ?Instructions ?Recorded ?Confirmed ?Last Taken ?Type albuterol sulfate 90 mcg/actuation 2 puff inhalation Q4-6H PRN SOB 10/19/24 10/28/24 Unknown History aerosol inhaler amlodipine 5 mg tablet 5 mg PO DAILY 10/19/24 10/28/24 Unknown History cholecalciferol (vitamin D3) 50 50 mcg PO BID 10/19/24 10/28/24 Unknown History mcg (2,000 unit) capsule diclofenac sodium 1 % topical gel 2 g topical QID 10/19/24 10/28/24 Unknown History (Arthritis Pain (diclofenac)) fluticasone furoate 27.5 1 spray intranasal DAILY 10/19/24 10/28/24 Unknown History mcg/actuation nasal spray,suspension (Children's Flonase Sensimist) ivermectin 1 % topical cream 1 appl topical DAILY 10/19/24 10/28/24 Unknown History levothyroxine 75 mcg capsule 75 mcg PO DAILY 10/19/24 10/28/24 Unknown History losartan 50 mg tablet 50 mg PO DAILY 10/19/24 10/28/24 Unknown History omeprazole 40 mg capsule,delayed 40 mg PO DAILY 10/19/24 10/28/24 10/28/24 08:30 History release pravastatin 10 mg tablet 10 mg PO DAILY 10/19/24 10/28/24 Unknown History mometasone 0.1 % topical solution topical 10/28/24 Unknown History potassium citrate 10 mEq (1,080 meq PO 10/28/24 Unknown History mg) tablet,extended release Physical Exam 2 Vital Signs and Narrative: Vital Signs: Last Vital Signs Temp 98.1 F 10/28/24 18:29 Pulse 110 H 10/28/24 18:29 Resp 18 10/28/24 18:29 BP 150/82 H 10/28/24 18:29 Pulse Ox 94 10/28/24 18:29 O2 Del Method Room Air 10/28/24 18:29 BMI result Body Mass Index 33.3 Results Labs 10/28/24 15:34 10/28/24 15:33 Labs: Laboratory Results - last 24 hr 10/28/24 10/28/24 10/28/24 15:27 15:33 15:34 MCV 88.0 MCH 29.5 MCHC 33.6 RDW 13.1 Plt Count 249 MPV 10.6 Immature Gran % (Auto) 0.5 H Neut % (Auto) 76.5 H Lymph % (Auto) 13.8 L [place] % (Auto) 7.3 Eos % (Auto) 1.5 Baso % (Auto) 0.4 Lymph # (Auto) 1.1 L [place] # (Auto) 0.6 Eos # (Auto) 0.1 Baso # (Auto) 0.0 Abs Immat Gran (auto) 0.04 H Absolute Neuts (auto) 5.9 Absolute Nucleated RBC 0.000 Nucleated RBC % (auto) 0.0 PT 11.8 INR 1.0 Anion Gap 14 Estim Creat Clear Calc 41.6 Estimated GFR 37 Random Glucose 132 H Calcium 10.0 Magnesium 1.9 Total Bilirubin 1.6 H AST 23 ALT 23 Alkaline Phosphatase 108 Troponin I High Sens 2.8 B-Natriuretic Peptide 64 Total Protein 7.1 Albumin 3.8 Lipase 9 Urine Color Urine Appearance Urine pH Ur Specific [place] Urine Protein Urine Glucose (UA) Urine Ketones Urine Blood Urine Nitrite Ur Leukocyte Esterase Urine RBC Urine WBC Ur Squamous Epith Cells Urine Bacteria Hyaline Casts Influenza Type A (PCR) NEGATIVE Influenza Type B (PCR) NEGATIVE RSV RNA Qual (PCR) NEGATIVE SARS-CoV-2 RNA (RT-PCR) NEGATIVE 10/28/24 15:42 MCV MCH MCHC RDW Plt Count MPV Immature Gran % (Auto) Neut % (Auto) Lymph % (Auto) [place] % (Auto) Eos % (Auto) Baso % (Auto) Lymph # (Auto) [place] # (Auto) Eos # (Auto) Baso # (Auto) Abs Immat Gran (auto) Absolute Neuts (auto) Absolute Nucleated RBC Nucleated RBC % (auto) PT INR Anion Gap Estim Creat Clear Calc Estimated GFR Random Glucose Calcium Magnesium Total Bilirubin AST ALT Alkaline Phosphatase Troponin I High Sens B-Natriuretic Peptide Total Protein Albumin Lipase Urine Color Yellow Urine Appearance Clear Urine pH 6.5 Ur Specific [place] <= 1.005 Urine Protein Negative Urine Glucose (UA) Negative Urine Ketones Negative Urine Blood Negative Urine Nitrite Negative Ur Leukocyte Esterase Negative Urine RBC 0-2 Urine WBC 0-5 Ur Squamous Epith Cells 0-2 Urine Bacteria None Seen Hyaline Casts 0-2 Influenza Type A (PCR) Influenza Type B (PCR) RSV RNA Qual (PCR) SARS-CoV-2 RNA (RT-PCR)
--- NOTE | 2024-10-28 19:24 | P.HPHOSP_ITS ---
History of Present Illness Date of Service: 10/28/24 Attending physician on admission: Tavon Bear Chief Complaint: A flutter Danita Randle is a very pleasant 69 years old woman with past medical history significant for restrictive lung disease, pulmonary nodules, hypertension, CKD, hypothyroidism and hyperlipidemia presents to the emergency department after she was found to have a flutter during preop for a bronchoscopy. She had aspiration episode about 2 weeks ago. She does complain of persistent cough over the last couple of weeks. Denied any palpitations, chest pain or shortness on breath. She reported edema to the lower extremities. She did not report any acute gastrointestinal or genitourinary symptoms. She does not have history of cardiac arrhythmias or heart failure. About 5 weeks ago she had right hand surgery. There is no history of tobacco smoking. In the ED, she was found to have tachycardia consistent with a flutter and tachypnea. Her oxygen saturation is fluctuating between 93-95% on room air. Blood workup showed no leukocytosis. Hemoglobin and platelets are normal. Electrolytes are normal. Creatinine is 1.42 and BUN 25. LFTs and lipase are normal. BNP 64 and troponin 2.8. CXR is negative. ECG showed atrial flutter with 2:1 av conduction ED tx: Diltiazem 20 mg IV then infusion, NS 1 L bolus Review of Systems 2 Review of Systems: All 12 systems were reviewed and normal except as noted in HPI. [facility] Medical History (Updated 10/28/24 @ 19:50 by Tavon Bear MD) Chronic restrictive lung disease Asthma Pulmonary nodules Social History (Updated 10/19/24 @ 13:28 by Zoila Johnson LPN) Patient Tobacco Use Status: Never used Tobacco Smoked in Last 30 Days: No Use of substances other than those prescribed or required for medical reasons: No Advance Directives: No Advance Directives Information Provided: Yes Meds Allergies Allergy/AdvReac Type Severity Reaction Status Date / Time amoxicillin Allergy hives Verified 10/28/24 14:35 ciprofloxacin Allergy Hives Verified 10/28/24 14:35 latex Allergy vaginal Verified 10/28/24 14:35 itching Active Medications: Current Medications Acetaminophen (Acetaminophen 325 Mg Tablet) 975 mg PO Q6H PRN PRN Reason: Pain, Mild (Pain Scale 1-3), fever or headache Diltiazem HCl 125 mg/ Sodium (Chloride) 125 mls @ 0 mls/hr IVCONT .Q0M [facility] [place]; Protocol Last Admin: 10/28/24 17:44 Dose: 10 mg/hr, 10 mls/hr Levalbuterol HCl (Levalbuterol Hcl 1.25 Mg/3 Ml Vial.Neb) 1.25 mg INHALE ONCE STA Stop: 10/28/24 19:23 Methylprednisolone Sodium Succinate (Methylprednisolone Sod Succ 40 Mg/Ml Vial) 40 mg IVPUSH ONCE ONE Stop: 10/28/24 19:23 Sodium Chloride (0.9 % Sodium Chloride Flush 3 Ml Syringe) 3 ml IVFLUSH QSHIFT [facility] [place] Home Medications ?Medication ?Instructions ?Recorded ?Confirmed ?Last Taken ?Type albuterol sulfate 90 mcg/actuation 2 puff inhalation Q4-6H PRN SOB 10/19/24 10/28/24 Unknown History aerosol inhaler amlodipine 5 mg tablet 5 mg PO DAILY 10/19/24 10/28/24 Unknown History cholecalciferol (vitamin D3) 50 50 mcg PO BID 10/19/24 10/28/24 Unknown History mcg (2,000 unit) capsule diclofenac sodium 1 % topical gel 2 g topical QID 10/19/24 10/28/24 Unknown History (Arthritis Pain (diclofenac)) fluticasone furoate 27.5 1 spray intranasal DAILY 10/19/24 10/28/24 Unknown History mcg/actuation nasal spray,suspension (Children's Flonase Sensimist) ivermectin 1 % topical cream 1 appl topical DAILY 10/19/24 10/28/24 Unknown History levothyroxine 75 mcg capsule 75 mcg PO DAILY 10/19/24 10/28/24 Unknown History losartan 50 mg tablet 50 mg PO DAILY 10/19/24 10/28/24 Unknown History omeprazole 40 mg capsule,delayed 40 mg PO DAILY 10/19/24 10/28/24 10/28/24 08:30 History release pravastatin 10 mg tablet 10 mg PO DAILY 10/19/24 10/28/24 Unknown History mometasone 0.1 % topical solution topical 10/28/24 Unknown History potassium citrate 10 mEq (1,080 meq PO 10/28/24 Unknown History mg) tablet,extended release Physical Exam 2 Vital Signs and Narrative: Vital Signs: Last Vital Signs Temp 98.1 F 10/28/24 18:29 Pulse 110 H 10/28/24 18:29 Resp 18 10/28/24 18:29 BP 150/82 H 10/28/24 18:29 Pulse Ox 94 10/28/24 18:29 O2 Del Method Room Air 10/28/24 18:29 BMI result Body Mass Index 33.3 Constitutional - Awake and Alert, No apparent distress. Pleasant. Cooperative. Constantly coughing. Obese. HEENT - PER EOMI Heart - Tachycardic, regular rhythm Lungs - Normal lung expansion, Normal respiratory effort, No respiratory distress. Tachypnea. End expiratory wheezes. Abdomen - nontender - No CVA tenderness Extremities - pitting edema to the lower extremities Musculoskeletal - Normal inspection, normal ROM Skin - Warm/Dry Neurological - Alert & oriented x3. No focal weakness grossly noted. Normal speech. Psychological - Appropriate affect Results Labs 10/28/24 15:34 10/28/24 15:33 Labs: Laboratory Results - last 24 hr 10/28/24 10/28/24 10/28/24 15:27 15:33 15:34 MCV 88.0 MCH 29.5 MCHC 33.6 RDW 13.1 Plt Count 249 MPV 10.6 Immature Gran % (Auto) 0.5 H Neut % (Auto) 76.5 H Lymph % (Auto) 13.8 L Mobile % (Auto) 7.3 Eos % (Auto) 1.5 Baso % (Auto) 0.4 Lymph # (Auto) 1.1 L Mobile # (Auto) 0.6 Eos # (Auto) 0.1 Baso # (Auto) 0.0 Abs Immat Gran (auto) 0.04 H Absolute Neuts (auto) 5.9 Absolute Nucleated RBC 0.000 Nucleated RBC % (auto) 0.0 PT 11.8 INR 1.0 Anion Gap 14 Estim Creat Clear Calc 41.6 Estimated GFR 37 Random Glucose 132 H Calcium 10.0 Magnesium 1.9 Total Bilirubin 1.6 H AST 23 ALT 23 Alkaline Phosphatase 108 Troponin I High Sens 2.8 B-Natriuretic Peptide 64 Total Protein 7.1 Albumin 3.8 Lipase 9 Urine Color Urine Appearance Urine pH Ur Specific Rescue Urine Protein Urine Glucose (UA) Urine Ketones Urine Blood Urine Nitrite Ur Leukocyte Esterase Urine RBC Urine WBC Ur Squamous Epith Cells Urine Bacteria Hyaline Casts Influenza Type A (PCR) NEGATIVE Influenza Type B (PCR) NEGATIVE RSV RNA Qual (PCR) NEGATIVE SARS-CoV-2 RNA (RT-PCR) NEGATIVE 10/28/24 15:42 MCV MCH MCHC RDW Plt Count MPV Immature Gran % (Auto) Neut % (Auto) Lymph % (Auto) Mobile % (Auto) Eos % (Auto) Baso % (Auto) Lymph # (Auto) Mobile # (Auto) Eos # (Auto) Baso # (Auto) Abs Immat Gran (auto) Absolute Neuts (auto) Absolute Nucleated RBC Nucleated RBC % (auto) PT INR Anion Gap Estim Creat Clear Calc Estimated GFR Random Glucose Calcium Magnesium Total Bilirubin AST ALT Alkaline Phosphatase Troponin I High Sens B-Natriuretic Peptide Total Protein Albumin Lipase Urine Color Yellow Urine Appearance Clear Urine pH 6.5 Ur Specific Rescue <= 1.005 Urine Protein Negative Urine Glucose (UA) Negative Urine Ketones Negative Urine Blood Negative Urine Nitrite Negative Ur Leukocyte Esterase Negative Urine RBC 0-2 Urine WBC 0-5 Ur Squamous Epith Cells 0-2 Urine Bacteria None Seen Hyaline Casts 0-2 Influenza Type A (PCR) Influenza Type B (PCR) RSV RNA Qual (PCR) SARS-CoV-2 RNA (RT-PCR) Assessment and Plan (1) Atrial flutter: Qualifiers: Atrial flutter type: unspecified Qualified Code(s): I48.92 - Unspecified atrial flutter Status: Acute (2) Chronic restrictive lung disease: Status: Acute Plan Danita Randle is a 69 y/o woman admitted with: * Rapid AF, new onset. Admit to hospitalist service. Telemetry. Pulse oximetry. Continue Cardizem infusion. Start anticoagulation with Eliquis. Check echocardiogram. Check D-dimer. Cardiology consult. * Bronchospasm s/p episode of aspiration in the setting of underlying restrictive lung disease. Bronchodilator therapy with Xopenex + Solu-Medrol 40 mg IV x1 (will avoid further steroid use as she had recent hand surgery -it could interfere with healing process). Antitussive. Pulmonology consult. Continue home inhalers. * Hypothyroidism. Continue levothyroxine. Check TSH. * Hyperlipidemia. Continue statin. * GERD. Continue omeprazole. * Essential hypertension. Amlodipine and losartan on hold as the patient is currently receiving an infusion of diltiazem. * CKD stage 3. Avoid nephrotoxic agents. Continue to monitor renal function. DVT prophylaxis: Eliquis Code status: Full Patient will need hospitalization for at least 2 midnights for new onset rapid a flutter treatment and evaluation with continuous cardiac monitoring, rate control agents intravenously, anticoagulation evaluation by subspecialty. Quality Stroke Does the patient have a stroke diagnosis?: No VTE Prior VTE?: No VTE Risk Level:: Medical - moderate - high VTE Device Contraindication: Treatment Not Indicated VTE Drug Contraindication: N/A - Med Ordered
[2024-10-28] MEDS: levalbuterol HCL 1.25 MG/3 ML VIAL.NEB INHALE (20:09)
[2024-10-28] MEDS: Benzonatate 100 MG CAPSULE PO (20:13)
[2024-10-28] MEDS: Apixaban 5 MG TABLET PO (20:13)
[2024-10-28] MEDS: methylPREDNISolone Sod Succ 40 MG/ML VIAL IVPUSH (20:15)
--- NOTE | 2024-10-28 20:15 | PHA.MEDREC ---
Addendum entered by Fransisco Black 10/28/24 20:34: Went to speak with patient again about her Lisinopril 10mg tabs and she confirmed that her Dr stopped that medication on August 24 and is not taking Losartan 50mg tabs once daily. She also confirmed with me now that she is taking her Amlodipine 5mg tab only once daily and states she was confused when I asked about that since the original directions are for 2 tabs daily but she has only been taking 1 tab daily for a while she stated. Original Note: Pharmacy Consult ? Medication Reconciliation Pharmacy has completed the medication reconciliation. Spoke with patient and she confirmed her medications. She confirmed she is still taking Amlodipine 5mg tabs and confirmed she is taking 2 tabs daily. She confirmed the Codine-Guaifenesin and she confirmed she took 5ml yesterday. She confirmed she is taking the Doxycycline 100mg tab and confirmed she started it Friday and she last took it last night. She confirmed the Potassium citrate tablet and she confirmed she is now taking 2 tabs three times a day. She confirmed she took her Benzoate and Omeprazole this morning and everything else yesterday.
[2024-10-28 20:47] LABS: D Dimer High Sensitivity 452 NG/ML
[2024-10-28] MEDS: Pravastatin Sodium 10 MG TABLET PO (22:29)
[2024-10-29] VITALS (7 sets, daily range): BP systolic 132–160; BP diastolic 55–68; PULSE 59–88; RESP 14–20; TEMP 36.2–37; O2SAT 92–98; BMI 43.4
[2024-10-29] MEDS: dilTIAZem HCL CD 120 MG CAP.ER.DEG PO (00:24)
[2024-10-29] MEDS: 0.9 % Sodium Chloride Flush 3 ML SYRINGE IVFLUSH ×4 (01:52→23:50)
[2024-10-29 05:17] LABS: MANUAL DIFF FLAG NO
[2024-10-29 05:19] LABS: Basophils Percent Auto 0.2 % (0-2); Eosinophils Percent Auto 0.2 % (0-4); Hematocrit 38.4 % (37.0-47.0); Imm Gran Abs Auto 0.02 X10*3/uL (0.00-0.03); Imm Gran Pct Auto 0.4 % (0.0-0.4); Lymphocytes Absolute Auto 0.6 X10*3/uL (1.2-4.9); Lymphocytes Percent Auto 11.4 % (20-40); Mean Corpuscular HGB Conc 33.9 g/dl (31.0-35.0); Mean Corpuscular Hemoglobin 29.5 pg (27.0-33.0); Mean Corpuscular Volume 87.1 fL (80.0-98.0); Monocytes Absolute Auto 0.1 X10*3/uL (0.1-1.2); Monocytes Percent Auto 1.3 % (2-11); Neutrophils Absolute Auto 4.8 x10*3/uL (2.0-8.3); Neutrophils Percent Auto 86.5 % (45-73); Platelet Count 156 X10*3/uL (160-400); Red Blood Count 4.41 X10*6/uL (4.20-5.50); White Blood Count 5.6 X10*3/uL (4.8-10.8)
[2024-10-29 05:40] LABS: Anion Gap 15 (12-20); Blood Urea Nitrogen 23 mg/dL (9-16); Calcium 9.5 mg/dL (8.4-10.2); Carbon Dioxide 20 mmol/L (22-29); Chloride 106 mmol/L (96-108); Estimated Glomerular Filt Rate 39; Glucose Random 222 mg/dL (60-115); Sodium 136 mmol/L (135-145)
[2024-10-29 05:46] LABS: Troponin-I High Sensitivity 5.1 ng/L (<3.5-17.0)
[2024-10-29] MEDS: Levothyroxine Sodium 75 MCG TABLET PO (06:18)
[2024-10-29] MEDS: guaiFEN/Codeine SF 200/20/10ML 10 ML LIQUID 5 ML PO (06:36)
[2024-10-29] MEDS: Omeprazole 40 MG CAPSULE.DR PO (06:36)
--- NOTE | 2024-10-29 07:00 | CA_ITS ---
Transthoracic Echocardiogram Patient (Last, First, Middle): Danita Randle, Gender: Female Date of : 1955 Age: 69 Procedure Date: 10/29/2024 Procedure Type: Transthoracic Echocardiogram Location: ER Height: 165.1 cm Weight: 90.72 kg BSA: 1.98 m2 Heart Rate: bpm BP: 160 / 60 mmHg Photoengraving Printer: Referring MD: Tavon Bear MD Coal Trimmer: Darren Garrett MD Symptoms: rapid a-fib Study Quality: Adequate ECG Rhythm: Atrial flutter Conclusions: - 1. Normal LV ejection of 60 65% 2. Moderate biatrial enlargement 3. Moderate tricuspid regurgitation 4. [id number] elevation of right ventricular systolic pressure with at least mildly elevated right atrial pressures 5. No gross pericardial effusion Findings Left Ventricle Normal left ventricular size, thickness, and systolic function. The visually estimated ejection fraction is between 60-65%. Diastolic function is indeterminate on the basis of available data. Right Ventricle Mildly increased right ventricular cavity size. There is normal right ventricular systolic function. Atria The left atrium is moderately dilated. Interatrial shunt cannot be excluded. The right atrium is moderately dilated. Aortic Valve The aortic valve structure and function is likely normal. There is no aortic valve stenosis. There is no aortic valve regurgitation. Mitral Valve Normal mitral valve structure and function. There is trace mitral valve regurgitation. There is no mitral valve stenosis. Pulmonic Valve The pulmonic valve was not well visualized. Tricuspid Valve Likely normal tricuspid valve structure and function. There is moderate tricuspid valve regurgitation. Mildly elevated right atrial pressure. Mild to moderate pulmonary hypertension is present. Great Vessels All visible segments of the aorta are normal in size. The pulmonary artery was not well visualized. There is no dilatation of the ascending aorta measuring 2.80 cm. Venous The inferior vena cava is moderately dilated and collapses greater than 50% with inspiration. Pericardium/Pleural There is no evidence of pericardial effusion. Prior Study Comparison No prior study available for comparison. Measurements 2D Linear Measurements IVSd: 1.07 0.6-0.9/0.6-1.0 cm LVIDd: 4.39 3.9-5.3/4.2-5.9 cm LVIDd Index: 2.22 2.4-3.2/2.2-3.1 cm/m2 LVIDs: 2.78 2.0-3.6 cm LVPWd: 1.06 0.7-1.1 cm Ao Root: 2.90 2.1-3.5 cm LA Diam: 4.50 2.7-3.8/3.0-4.0 cm LAIDs Index: 2.27 1.5-2.3 cm/m2 LV Mass: 200.27 67-162/88-224 g LV Mass Index: 101.14 43-95/49-115 g/m2 LVOT Diam: 2.30 3.0+(-)1.3 cm Mitral Valve MV Pk E: 1.35 MV Decel Time: 199.00 E'Lateral: 17.10 E'Medial: 14.10 E/E' Med: 9.60 E/E' Lat: 7.90 PHT: 58.00 MVA PHT: 3.79 Decel [place]: 6.79 Aortic Valve AoV Pk Theron: 1.98 AoV Mn Theron: 1.28 AoV VTI: 0.45 AoV Pk Grad: 16.00 Aov Mn Grad: 8.00 DANIELE Cont.VTI: 2.59 LVOT LVOT Pk Theron: 1.27 LVOT Mn Theron: 0.98 LVOT VTI: 0.28 LVOT Pk Grad: 6.00 LVOT Mn Grad: 4.00 LVOT Diam: 2.30 LVOT Area: 4.15 Diastolic Function MV Pk E: 1.35 E'Medial: 14.10 E/E' Med: 9.60 E' Laterial: 17.10 E/E' Lat: 7.90 Right Ventricle TAPSE (mm): 27.00 Tricuspid Valve TR Pk Theron: 3.03 TR Pk Grad: 37.00 RA Press: 8.00 RVSP: 45.00 Great Vessels Aorta Ao Root-2D: 2.90 2.0-3.7 cm Ao Asc: 2.80 2.1-3.4 cm Pulmonary Valve PV Pk Theron: 1.16 Peak PV Grad: 5.00 Updated in Other Vendor System with Status of Final Darren Garrett MD electronically signed on 10/29/2024 1:27:23 PM with status of Final
--- NOTE | 2024-10-29 08:18 | MHC.EDTECH ---
Patient ate 0% of breakfast. Patient stated I don't really like anything on the tray . Offered patient crackers. Asked patient if there was anything she would like to eat. Patient stated No, I'm okay for now . Patient resting comfortably at this time. Call hunt placed within reach.
[2024-10-29] MEDS: Cholecalciferol (Vitamin D3) 25 MCG TABLET 50 MCG PO ×2 (08:22→21:09)
[2024-10-29] MEDS: Doxycycline Monohydrate 100 MG CAPSULE PO (08:22)
[2024-10-29] MEDS: Apixaban 5 MG TABLET PO (08:22)
[2024-10-29] MEDS: Benzonatate 100 MG CAPSULE PO ×3 (08:22→21:11)
--- NOTE | 2024-10-29 09:19 | PM.CNPUL ---
History of Present Illness History of Present Illness Consult date: 10/29/24 Chief complaint: Rapid a-flutter Narrative: This is a inpatient pulmonary consultation. The patient is a 69-year-old who was initially referred to Pulmonary for evaluation of interstitial lung disease. However, the patient had been doing well until recent aspiration event. Apparently patient was in his usual state health until about we can have to 2 weeks ago when she was eating some popcorn and she aspirated a few kernels into her lungs. She was able to cough up some of them. At that point she started having some wheezing some shortness breath and some significant coughing spells. At that point the patient did have a pulmonary evaluation initially for the question of interstitial lung disease when she mentioned about the aspiration history. We did an x-ray at that point demonstrating no acute disease no evidence of any significant atelectasis. She was provided with a CPT device inhalers. She was also provide her with some cough suppressants to be able to be use at nighttime. The patient initially felt better and then she started feeling worse again with significant coughing spells she called the office and we sent her some antibiotics and plan for bronchoscopy. The patient on the day of the bronchoscopy came in she had noticed some leg swelling and also changes in urine color when she was hooked up to telemetry demonstrated new onset atrial flutter with rapid ventricular response. She was subsequently sent to the ER in the bronchoscopy was canceled. Now she has been on rate controlled on diltiazem drip and she was started on Eliquis. Explained to the patient that on the Eliquis we may have to suspend procedure. She also had D-dimer that was elevated in view of her new onset a flutter in her coughing spells will be reasonable to rule out for pulmonary emboli. She has also had lower extremity edema. Also the CTA not only will rule out or evaluate for thromboembolic disease but also would assess the airways for foreign bodies. If the patient has any obvious foreign bodies or atelectasis of any concerned she would have to be taken off the Eliquis and placed on different agent in order to be able to perform a procedure as an inpatient. If her CT scan is reassuring they will focus on heart and continue the Eliquis and then plan for procedure bronchoscopy as an outpatient. Review of Systems Constitutional: Constitutional: Denies fever(s) Eyes: Eyes: Reports no additional eye complaints ENT: Reports sore throat Cardiovascular: Cardiovascular: Denies chest pain, Reports leg edema and Denies palpitations Respiratory: Respiratory: Reports cough, Reports wheezing and Reports other (small pieces of popcorn kernels) Gastrointestinal: Gastrointestinal: Reports no additional gastrointestinal complaints Musculoskeletal: Musculoskeletal: Reports no additional musculoskeletal complaints Endocrine: Endocrine: Denies palpitations Hematologic/Lymphatic: Hematologic/Lymphatic: Reports no additional hematologic/lymphatic complaints Allergic/Immunologic: Allergic/Immunologic: Reports wheezing PMFSH Past Medical History Medical History (Updated 10/28/24 @ 19:50 by Tavon Bear MD) Chronic restrictive lung disease Asthma Pulmonary nodules Social History Social History (Updated 10/19/24 @ 13:28 by Zoila Johnson LPN) Patient Tobacco Use Status: Never used Tobacco Smoked in Last 30 Days: No Use of substances other than those prescribed or required for medical reasons: No Advance Directives: No Advance Directives Information Provided: Yes Meds Allergies Allergy/AdvReac Type Severity Reaction Status Date / Time amoxicillin Allergy hives Verified 10/28/24 14:35 ciprofloxacin Allergy Hives Verified 10/28/24 14:35 latex Allergy vaginal Verified 10/28/24 14:35 itching Active Medications: Current Medications Acetaminophen (Acetaminophen 325 Mg Tablet) 975 mg PO Q6H PRN PRN Reason: Pain, Mild (Pain Scale 1-3), fever or headache Apixaban (Apixaban 5 Mg Tablet) 5 mg PO BID [facility] Last Admin: 10/29/24 08:22 Dose: 5 mg Benzonatate (Benzonatate 100 Mg Capsule) 100 mg PO TID [facility] Last Admin: 10/29/24 08:22 Dose: 100 mg Diltiazem HCl (Diltiazem Hcl Cd 120 Mg Cap.Er.Deg) 120 mg PO DAILY [facility]; Protocol Last Admin: 10/29/24 00:24 Dose: 120 mg Doxycycline Monohydrate (Doxycycline Monohydrate 100 Mg Capsule) 100 mg PO BID [facility] Last Admin: 10/29/24 08:22 Dose: 100 mg Fluticasone Propionate (Fluticasone Propionate Nasal 16 Gm [place]) 1 spray NOSTRIL-B DAILY [facility] Guaifenesin/Codeine Phosphate (Guaifen/Codeine Sf 200/20/10ml 10 Ml Liquid) 5 ml PO Q6H PRN PRN Reason: Cough Last Admin: 10/29/24 06:36 Dose: 5 ml Diltiazem HCl 125 mg/ Sodium (Chloride) 125 mls @ 0 mls/hr IVCONT .Q0M [facility]; Protocol Last Titration: 10/29/24 00:26 Dose: 0 mg/hr, 0 mls/hr Levothyroxine Sodium (Levothyroxine Sodium 75 Mcg Tablet) 75 mcg PO DAILY@0600 [facility] Last Admin: 10/29/24 06:18 Dose: 75 mcg Omeprazole (Omeprazole 40 Mg Capsule.Dr) 40 mg PO DAILY@0630 [facility] Last Admin: 10/29/24 06:36 Dose: 40 mg Pravastatin Sodium (Pravastatin Sodium 10 Mg Tablet) 10 mg PO BEDTIME [facility] Last Admin: 10/28/24 22:29 Dose: 10 mg Sodium Chloride (0.9 % Sodium Chloride Flush 3 Ml Syringe) 3 ml IVFLUSH QSHIFT [facility] Last Admin: 10/29/24 08:24 Dose: 3 ml Vitamin D (Cholecalciferol (Vitamin D3) 25 Mcg Tablet) 50 mcg PO BID [facility] Last Admin: 10/29/24 08:22 Dose: 50 mcg Home Medications ?Medication ?Instructions ?Recorded ?Confirmed ?Last Taken ?Type amlodipine 5 mg tablet 5 mg PO DAILY 10/19/24 10/28/24 10/27/24 History cholecalciferol (vitamin D3) 50 50 mcg PO BID 10/19/24 10/28/24 10/27/24 History mcg (2,000 unit) capsule levothyroxine 75 mcg capsule 75 mcg PO DAILY@0600 10/19/24 10/28/24 10/27/24 History losartan 50 mg tablet 50 mg PO DAILY 10/19/24 10/28/24 10/27/24 History omeprazole 40 mg capsule,delayed 40 mg PO DAILY@0630 10/19/24 10/28/24 10/28/24 08:30 History release pravastatin 10 mg tablet 10 mg PO BEDTIME 10/19/24 10/28/24 10/27/24 History codeine 10 mg-guaifenesin 100 mg/5 5 ml PO Q6H PRN cough 10/28/24 10/28/24 10/27/24 History mL oral liquid fluticasone propionate 50 1 spray intranasal DAILY 10/28/24 10/28/24 10/27/24 History mcg/actuation nasal spray,suspension potassium citrate 10 mEq (1,080 20 meq PO TID 10/28/24 10/28/24 10/27/24 History mg) tablet,extended release Physical Exam Vital Signs: Vital Signs: Last Vital Signs Temp 97.9 F 10/29/24 06:45 Pulse 81 10/29/24 06:45 Resp 16 10/29/24 07:36 BP 150/60 H 10/29/24 07:36 Pulse Ox 92 10/29/24 06:45 O2 Del Method Room Air 10/29/24 06:45 BMI result Body Mass Index 33.3 Const: General: comfortable HEENT: Head: Yes normocephalic Neck: Neck: Yes supple Chest: Chest palpation & inspection: normal inspection of the chest Resp: Effort & Inspection: normal respiratory effort Auscultation: diminished lung sounds Cardio: Heart sounds: S1 normal heart sound present and S2 normal heart sound present GI: Palpation (GI): Soft to palpation Skin: General skin exam: no rashes or lesions noted Extrem: General: No clubbing, No cyanosis and Yes edema Results Laboratory Findings 10/29/24 04:54 10/29/24 04:54 ABG, PT/INR, D-dimer: PT/INR, D-dimer PT 11.8 SEC (10.9-12.4) 10/28/24 15:33 INR 1.0 (0.9-1.1) 10/28/24 15:33 Abnormal lab findings: Abnormal Labs 10/28/24 10/28/24 10/29/24 15:33 15:34 04:54 Plt Count 156 L D Immature Gran % (Auto) 0.5 H Neut % (Auto) 76.5 H 86.5 H Lymph % (Auto) 13.8 L 11.4 L [place] % (Auto) 1.3 L Lymph # (Auto) 1.1 L 0.6 L Abs Immat Gran (auto) 0.04 H Carbon Dioxide 20 L BUN 25 H 23 H Creatinine 1.42 H Random Glucose 132 H 222 H Total Bilirubin 1.6 H Assessment and Plan (1) Atrial flutter: Qualifiers: Atrial flutter type: unspecified Qualified Code(s): I48.92 - Unspecified atrial flutter Status: Acute (2) Asthma: Qualifiers: Asthma severity: moderate Asthma persistence: persistent Asthma complication type: with acute exacerbation Qualified Code(s): J45.41 - Moderate persistent asthma with (acute) exacerbation Status: Acute (3) Pulmonary nodules: Status: Acute (4) Aspiration into airway: Qualifiers: Encounter type: initial encounter Qualified Code(s): T17.908A - Unspecified foreign body in respiratory tract, part unspecified causing other injury, initial encounter Status: Acute Plan start Breo daily instead of [place] CTA ro r/o PE and FB in the airways. If she has evidence of FB will need to come off the Eliquis to perform a bronchoscopy. Cardiology evaluating Procedures Date of Service Date of Service: 10/29/24
--- NOTE | 2024-10-29 09:36 | MHC.CM.PN ---
PT REPORTS SHE LIVES WITH HER AND IS INDEPENDENT WITH CARE SHE HAS NO DME AND NO SERVICES SHE DECLINES TO COMPLETE A HCP, SHE SAYS SHE THE DOCUMENT AT HOME BUT IS DISCUSSING IT FURTHER WITH HER FAMILY PCP: NII [facility] IMM DELIVERED DCP: HOME VIA FAMILY TRANSPORT
--- NOTE | 2024-10-29 09:57 | P.CONCA_ITS ---
History of Present Illness History of Present Illness Date of Service: 10/29/24 Requesting physician: Alon Magana Consult reason: other (Atrial flutter) Chief complaint: Rapid a-flutter Narrative: Heart was consulted to see Danita in cardiology consultation today for new onset atrial flutter. Patient is a pleasant 69-year-old female with prior history of hypertension, CKD, restrictive lung disease, borderline diabetes, obesity, hypothyroidism, hyperlipidemia. Patient was in usual state of health and was going to see Dr. Thorpe as an outpatient for abnormal pulmonary function test and chest x-ray. However she had a aspiration event about couple weeks ago where she was eating a popsicle and started having coughing fit and does a suspicion for a foreign body aspiration. She was therefore scheduled for an outpatient bronchoscopy and came in for the procedure yesterday and was noted to be in atrial flutter with rapid ventricular response. Patient said she had a hand surgery about 5 weeks ago where at that time she had EKG done prior to that and there was no atrial arrhythmias at that time. Patient was not aware of her heartbeat in rapidly. She had no symptoms of rapid heart rate or palpitations fluttering in her chest. However she has interestingly noted that she has had increased leg swelling over the last 2 days although denies any abdominal distension, orthopnea, PND. She is also notice that her urine output has gone down. She drinks about 2.5 L of fluid every day for renal stone and had good light urine output regularly but she has noticed over the last many days this is not happen. She came to the hospital yesterday creatinine was slightly elevated at 1.43. Her procedure was canceled and she was brought to the emergency room and started on IV Cardizem. Overnight her heart rate has remained controlled and her IV Cardizem drip. His she switch to oral medications. She also started on Eliquis therapy. Her D-dimer is slightly elevated at 452. BNP 64. She continues to have leg swelling. She says she has had better urine output since she has been in the emergency room. She denies any chest pain. No lightheadedness, syncope. Cardiology consult was sought for management of new onset atrial flutter. Review of Systems 2 Constitutional: Constitutional: Reports no additional constitutional complaints Eyes: Eyes: Reports no additional eye complaints Cardiovascular: Cardiovascular: Denies chest pain, Denies rapid heart rate, Reports leg edema, Denies lightheadedness, Denies Loss of Consciousness, Denies palpitations, Denies dyspnea and Denies orthopnea Respiratory: Respiratory: Reports cough, Denies dyspnea and Reports wheezing Gastrointestinal: Gastrointestinal: Reports no additional gastrointestinal complaints Genitourinary: Genitourinary: Reports no additional female genitourinary complaints Musculoskeletal: Musculoskeletal: Reports no additional musculoskeletal complaints Integumentary/Breasts: Skin/Breast: Reports system reviewed and no additional complaints, except as docu Neurologic: Reports system reviewed and no additional complaints, except as documented Psychiatric: Psychiatric: Reports no additional psychiatric complaints Endocrine: Endocrine: Denies palpitations Allergic/Immunologic: Allergic/Immunologic: Reports wheezing PMFSH Past Medical History Medical History Chronic restrictive lung disease Asthma Pulmonary nodules Social History Social History Patient Tobacco Use Status: Never used Tobacco Smoked in Last 30 Days: No Use of substances other than those prescribed or required for medical reasons: No Advance Directives: No Advance Directives Information Provided: Yes service: No Meds Allergies Allergy/AdvReac Type Severity Reaction Status Date / Time amoxicillin Allergy hives Verified 10/28/24 14:35 ciprofloxacin Allergy Hives Verified 10/28/24 14:35 latex Allergy vaginal Verified 10/28/24 14:35 itching Active Medications: Current Medications Acetaminophen (Acetaminophen 325 Mg Tablet) 975 mg PO Q6H PRN PRN Reason: Pain, Mild (Pain Scale 1-3), fever or headache Apixaban (Apixaban 5 Mg Tablet) 5 mg PO BID [facility] Last Admin: 10/29/24 08:22 Dose: 5 mg Benzonatate (Benzonatate 100 Mg Capsule) 100 mg PO TID [facility] Last Admin: 10/29/24 08:22 Dose: 100 mg Diltiazem HCl (Diltiazem Hcl Cd 120 Mg Cap.Er.Deg) 120 mg PO DAILY [facility]; Protocol Last Admin: 10/29/24 00:24 Dose: 120 mg Doxycycline Monohydrate (Doxycycline Monohydrate 100 Mg Capsule) 100 mg PO BID [facility] Last Admin: 10/29/24 08:22 Dose: 100 mg Fluticasone Propionate (Fluticasone Propionate Nasal 16 Gm [place]) 1 spray NOSTRIL-B DAILY [facility] Guaifenesin/Codeine Phosphate (Guaifen/Codeine Sf 200/20/10ml 10 Ml Liquid) 5 ml PO Q6H PRN PRN Reason: Cough Last Admin: 10/29/24 06:36 Dose: 5 ml Diltiazem HCl 125 mg/ Sodium (Chloride) 125 mls @ 0 mls/hr IVCONT .Q0M [facility]; Protocol Last Titration: 10/29/24 00:26 Dose: 0 mg/hr, 0 mls/hr Levothyroxine Sodium (Levothyroxine Sodium 75 Mcg Tablet) 75 mcg PO DAILY@0600 [facility] Last Admin: 10/29/24 06:18 Dose: 75 mcg Omeprazole (Omeprazole 40 Mg Capsule.Dr) 40 mg PO DAILY@0630 [facility] Last Admin: 10/29/24 06:36 Dose: 40 mg Pravastatin Sodium (Pravastatin Sodium 10 Mg Tablet) 10 mg PO BEDTIME [facility] Last Admin: 10/28/24 22:29 Dose: 10 mg Sodium Chloride (0.9 % Sodium Chloride Flush 3 Ml Syringe) 3 ml IVFLUSH QSHIFT [facility] Last Admin: 10/29/24 08:24 Dose: 3 ml Vitamin D (Cholecalciferol (Vitamin D3) 25 Mcg Tablet) 50 mcg PO BID [facility] Last Admin: 10/29/24 08:22 Dose: 50 mcg Home Medications ?Medication ?Instructions ?Recorded ?Confirmed ?Last Taken ?Type amlodipine 5 mg tablet 5 mg PO DAILY 10/19/24 10/28/24 10/27/24 History cholecalciferol (vitamin D3) 50 50 mcg PO BID 10/19/24 10/28/24 10/27/24 History mcg (2,000 unit) capsule levothyroxine 75 mcg capsule 75 mcg PO DAILY@0600 10/19/24 10/28/24 10/27/24 History losartan 50 mg tablet 50 mg PO DAILY 10/19/24 10/28/24 10/27/24 History omeprazole 40 mg capsule,delayed 40 mg PO DAILY@0630 10/19/24 10/28/24 10/28/24 08:30 History release pravastatin 10 mg tablet 10 mg PO BEDTIME 10/19/24 10/28/24 10/27/24 History codeine 10 mg-guaifenesin 100 mg/5 5 ml PO Q6H PRN cough 10/28/24 10/28/24 10/27/24 History mL oral liquid fluticasone propionate 50 1 spray intranasal DAILY 10/28/24 10/28/24 10/27/24 History mcg/actuation nasal spray,suspension potassium citrate 10 mEq (1,080 20 meq PO TID 10/28/24 10/28/24 10/27/24 History mg) tablet,extended release Physical Exam 2 Vital Signs: Vital Signs: Last Vital Signs Temp 97.9 F 10/29/24 06:45 Pulse 81 10/29/24 06:45 Resp 16 10/29/24 07:36 BP 150/60 H 10/29/24 07:36 Pulse Ox 92 10/29/24 06:45 O2 Del Method Room Air 10/29/24 06:45 BMI result Body Mass Index 33.3 Const: General: cooperative, comfortable, no acute distress, alert and awake Nutritional Appearance: obese Orientation/consciousness: patient oriented x3 Limitations: no limitations HEENT: Head: Yes normocephalic and Yes atraumatic Neck: Neck: Yes trachea midline, Yes supple and Yes other (Difficult to assess JVD) Resp: Effort & Inspection: normal respiratory effort Auscultation: no rales and wheezes Cardio: Rate: regular rate Rhythm: abnormal rhythm irregularly irregular Heart sounds: S1 normal heart sound present, S2 normal heart sound present, no click, no gallops and no murmurs GI: Inspection: Yes obesity Auscultation: normal bowel sounds Skin: General skin exam: no rashes or lesions noted Neuro: General: patient oriented x3 and no focal motor deficits Extrem: General: No clubbing, No cyanosis and Yes edema Objective Labs and Meds 10/29/24 04:54 10/29/24 04:54 Lab results: Laboratory Results - last 24 hr 10/28/24 10/28/24 10/28/24 15:27 15:33 15:34 WBC 7.8 RBC 4.40 Hgb 13.0 Hct 38.7 MCV 88.0 MCH 29.5 MCHC 33.6 RDW 13.1 Plt Count 249 MPV 10.6 Immature Gran % (Auto) 0.5 H Neut % (Auto) 76.5 H Lymph % (Auto) 13.8 L [place] % (Auto) 7.3 Eos % (Auto) 1.5 Baso % (Auto) 0.4 Lymph # (Auto) 1.1 L [place] # (Auto) 0.6 Eos # (Auto) 0.1 Baso # (Auto) 0.0 Abs Immat Gran (auto) 0.04 H Absolute Neuts (auto) 5.9 Absolute Nucleated RBC 0.000 Nucleated RBC % (auto) 0.0 PT 11.8 INR 1.0 D-Dimer High Sensitivty Sodium 140 Potassium 4.6 Chloride 105 Carbon Dioxide 26 Anion Gap 14 BUN 25 H Creatinine 1.42 H Estim Creat Clear Calc 41.6 Estimated GFR 37 Random Glucose 132 H Calcium 10.0 Magnesium 1.9 Total Bilirubin 1.6 H AST 23 ALT 23 Alkaline Phosphatase 108 Troponin I High Sens 2.8 B-Natriuretic Peptide 64 Total Protein 7.1 Albumin 3.8 Lipase 9 TSH 1.10 Urine Color Urine Appearance Urine pH Ur Specific [place] Urine Protein Urine Glucose (UA) Urine Ketones Urine Blood Urine Nitrite Ur Leukocyte Esterase Urine RBC Urine WBC Ur Squamous Epith Cells Urine Bacteria Hyaline Casts Influenza Type A (PCR) NEGATIVE Influenza Type B (PCR) NEGATIVE RSV RNA Qual (PCR) NEGATIVE SARS-CoV-2 RNA (RT-PCR) NEGATIVE 10/28/24 10/28/24 10/29/24 15:42 20:06 04:54 WBC 5.6 RBC 4.41 Hgb 13.0 Hct 38.4 MCV 87.1 MCH 29.5 MCHC 33.9 RDW 13.0 Plt Count 156 L D MPV 12.0 Immature Gran % (Auto) 0.4 Neut % (Auto) 86.5 H Lymph % (Auto) 11.4 L [place] % (Auto) 1.3 L Eos % (Auto) 0.2 Baso % (Auto) 0.2 Lymph # (Auto) 0.6 L [place] # (Auto) 0.1 Eos # (Auto) 0.0 Baso # (Auto) 0.0 Abs Immat Gran (auto) 0.02 Absolute Neuts (auto) 4.8 Absolute Nucleated RBC 0.000 Nucleated RBC % (auto) 0.0 PT INR D-Dimer High Sensitivty 452 Sodium 136 Potassium 5.0 Chloride 106 Carbon Dioxide 20 L Anion Gap 15 BUN 23 H Creatinine 1.34 Estim Creat Clear Calc 44.0 Estimated GFR 39 Random Glucose 222 H Calcium 9.5 Magnesium Total Bilirubin AST ALT Alkaline Phosphatase Troponin I High Sens 5.1 D B-Natriuretic Peptide Total Protein Albumin Lipase TSH Urine Color Yellow Urine Appearance Clear Urine pH 6.5 Ur Specific [place] <= 1.005 Urine Protein Negative Urine Glucose (UA) Negative Urine Ketones Negative Urine Blood Negative Urine Nitrite Negative Ur Leukocyte Esterase Negative Urine RBC 0-2 Urine WBC 0-5 Ur Squamous Epith Cells 0-2 Urine Bacteria None Seen Hyaline Casts 0-2 Influenza Type A (PCR) Influenza Type B (PCR) RSV RNA Qual (PCR) SARS-CoV-2 RNA (RT-PCR) Assessment and Plan (1) Atrial flutter: Qualifiers: Atrial flutter type: unspecified Qualified Code(s): I48.92 - Unspecified atrial flutter Status: Acute New onset atrial flutter with rapid ventricular response, incidentally detected when patient came for an outpatient procedure stroke for bronchoscopy. She was interesting symptoms suggestive of cardiorenal dysfunction with reduced urine output and increased leg swelling suggestive of early right-sided heart failure syndrome although clinically does appear to be in florid heart failure. Her BNP is within normal limits. At this point time her rate is adequately controlled. Agree with Pulmonary to workup for pulmonary embolism as well as to evaluate for if she continues to have a foreign body that may need more urgent pulmonary treatment with bronchoscopy. She was appropriately been started on rate control and oral anticoagulation therapy. CHADSVASc score of at least 3. He will need oral anticoagulation therapy for cover cutter machine. Will need eventual rhythm control approach once she has been on adequate oral anticoagulation therapy for at least 3-4 weeks. Pathophysiology of atrial flutter was discussed in details. Management of atrial flutter was discussed in details. Once CTA as performed an echocardiogram is performed will evaluate her right atrial filling pressures understands with the she will need IV diuresis prior to discharge. Seems like if she remained stable, can be discharged and management can be continued as outpatient. Follow-up echocardiogram. Will follow with her. Thank you for allowing me to partake in his care Procedures Date of Service Date of Service: 10/29/24
[2024-10-29] MEDS: iohexoL 350 MG/ML 75 ML INFUS..BTL 65 ML IV (10:56)
[2024-10-29] MEDS: Fluticasone/Vilanterol 200/25 BLST.W.DEV 1 PUFF INHALE (11:27)
--- NOTE | 2024-10-29 11:39 | HO.PM.IMPN ---
Subjective Subjective Date of Service: 10/29/24 Interval History: Being followed for new onset atrial flutter denies chest pain, no palpitations, continue to have intermittent cough that started after an aspiration event couple weeks ago after eating popcorn, and was scheduled for outpatient bronchoscopy but preprocedure EKG showed atrial flutter. Denies fever chills, no nausea vomiting, no acute events overnight Review of Systems All other system reviewed and are negative. Physical Exam Vital Signs: Vital Signs: Last Vital Signs Temp 97.9 F 10/29/24 06:45 Pulse 76 10/29/24 11:29 Resp 18 10/29/24 11:29 BP 150/60 H 10/29/24 07:36 Pulse Ox 92 10/29/24 06:45 O2 Del Method Room Air 10/29/24 06:45 BMI result Body Mass Index 33.3 Const: Other: General resting comfortably in no acute distress. Anicteric sclera Neck no JVD. CVS irregular rate rhythm, Respiratory lungs clear to auscultation, no respiratory distress, no wheeze, no rhonchi. Gastrointestinal abdomen soft, non tender, bowel sounds audible Extremities + edema. Neuro non focal Skin no rash Psych appropriate affect Objective Data Active Medications Acetaminophen (Acetaminophen 325 Mg Tablet) 975 mg PO Q6H PRN PRN Reason: Pain, Mild (Pain Scale 1-3), fever or headache Apixaban (Apixaban 5 Mg Tablet) 5 mg PO BID [facility] Last Admin: 10/29/24 08:22 Dose: 5 mg Documented By: LUIS Benzonatate (Benzonatate 100 Mg Capsule) 100 mg PO TID [facility] Last Admin: 10/29/24 08:22 Dose: 100 mg Documented By: LUIS Diltiazem HCl (Diltiazem Hcl Cd 120 Mg Cap.Er.Deg) 120 mg PO DAILY [facility]; Protocol Last Admin: 10/29/24 00:24 Dose: 120 mg Documented By: NICOLE Doxycycline Monohydrate (Doxycycline Monohydrate 100 Mg Capsule) 100 mg PO BID [facility] Last Admin: 10/29/24 08:22 Dose: 100 mg Documented By: LUIS Fluticasone Propionate (Fluticasone Propionate Nasal 16 Gm [place]) 1 spray NOSTRIL-B DAILY [facility] Fluticasone/Vilanterol (Fluticasone/Vilanterol 200/25 Blst.W.Dev) 1 puff INHALE RDAILY [facility] Last Admin: 10/29/24 11:27 Dose: 1 puff Documented By: KAMINI Guaifenesin/Codeine Phosphate (Guaifen/Codeine Sf 200/20/10ml 10 Ml Liquid) 5 ml PO Q6H PRN PRN Reason: Cough Last Admin: 10/29/24 06:36 Dose: 5 ml Documented By: NICOLE Diltiazem HCl 125 mg/ Sodium (Chloride) 125 mls @ 0 mls/hr IVCONT .Q0M [facility]; Protocol Last Titration: 10/29/24 00:26 Dose: 0 mg/hr, 0 mls/hr Documented By: NICOLE Levothyroxine Sodium (Levothyroxine Sodium 75 Mcg Tablet) 75 mcg PO DAILY@0600 [facility] Last Admin: 10/29/24 06:18 Dose: 75 mcg Documented By: NICOLE Omeprazole (Omeprazole 40 Mg Capsule.) 40 mg PO DAILY@0630 [facility] Last Admin: 10/29/24 06:36 Dose: 40 mg Documented By: NICOLE Pravastatin Sodium (Pravastatin Sodium 10 Mg Tablet) 10 mg PO BEDTIME [facility] Last Admin: 10/28/24 22:29 Dose: 10 mg Documented By: NICOLE Sodium Chloride (0.9 % Sodium Chloride Flush 3 Ml Syringe) 3 ml IVFLUSH QSHIFT [facility] Last Admin: 10/29/24 08:24 Dose: 3 ml Documented By: LUIS Vitamin D (Cholecalciferol (Vitamin D3) 25 Mcg Tablet) 50 mcg PO BID [facility] Last Admin: 10/29/24 08:22 Dose: 50 mcg Documented By: LUIS Labs 10/29/24 04:54 10/29/24 04:54 Labs: Laboratory Results - last 24 hr 10/28/24 10/28/24 10/28/24 15:27 15:33 15:34 MCV 88.0 MCH 29.5 MCHC 33.6 RDW 13.1 Plt Count 249 MPV 10.6 Immature Gran % (Auto) 0.5 H Neut % (Auto) 76.5 H Lymph % (Auto) 13.8 L [place] % (Auto) 7.3 Eos % (Auto) 1.5 Baso % (Auto) 0.4 Lymph # (Auto) 1.1 L [place] # (Auto) 0.6 Eos # (Auto) 0.1 Baso # (Auto) 0.0 Abs Immat Gran (auto) 0.04 H Absolute Neuts (auto) 5.9 Absolute Nucleated RBC 0.000 Nucleated RBC % (auto) 0.0 PT 11.8 INR 1.0 D-Dimer High Sensitivty Anion Gap 14 Estim Creat Clear Calc 41.6 Estimated GFR 37 Random Glucose 132 H Calcium 10.0 Magnesium 1.9 Total Bilirubin 1.6 H AST 23 ALT 23 Alkaline Phosphatase 108 Troponin I High Sens 2.8 B-Natriuretic Peptide 64 Total Protein 7.1 Albumin 3.8 Lipase 9 TSH 1.10 Urine Color Urine Appearance Urine pH Ur Specific [place] Urine Protein Urine Glucose (UA) Urine Ketones Urine Blood Urine Nitrite Ur Leukocyte Esterase Urine RBC Urine WBC Ur Squamous Epith Cells Urine Bacteria Hyaline Casts Influenza Type A (PCR) NEGATIVE Influenza Type B (PCR) NEGATIVE RSV RNA Qual (PCR) NEGATIVE SARS-CoV-2 RNA (RT-PCR) NEGATIVE 10/28/24 10/28/24 10/29/24 15:42 20:06 04:54 MCV 87.1 MCH 29.5 MCHC 33.9 RDW 13.0 Plt Count 156 L D MPV 12.0 Immature Gran % (Auto) 0.4 Neut % (Auto) 86.5 H Lymph % (Auto) 11.4 L [place] % (Auto) 1.3 L Eos % (Auto) 0.2 Baso % (Auto) 0.2 Lymph # (Auto) 0.6 L [place] # (Auto) 0.1 Eos # (Auto) 0.0 Baso # (Auto) 0.0 Abs Immat Gran (auto) 0.02 Absolute Neuts (auto) 4.8 Absolute Nucleated RBC 0.000 Nucleated RBC % (auto) 0.0 PT INR D-Dimer High Sensitivty 452 Anion Gap 15 Estim Creat Clear Calc 44.0 Estimated GFR 39 Random Glucose 222 H Calcium 9.5 Magnesium Total Bilirubin AST ALT Alkaline Phosphatase Troponin I High Sens 5.1 D B-Natriuretic Peptide Total Protein Albumin Lipase TSH Urine Color Yellow Urine Appearance Clear Urine pH 6.5 Ur Specific [place] <= 1.005 Urine Protein Negative Urine Glucose (UA) Negative Urine Ketones Negative Urine Blood Negative Urine Nitrite Negative Ur Leukocyte Esterase Negative Urine RBC 0-2 Urine WBC 0-5 Ur Squamous Epith Cells 0-2 Urine Bacteria None Seen Hyaline Casts 0-2 Influenza Type A (PCR) Influenza Type B (PCR) RSV RNA Qual (PCR) SARS-CoV-2 RNA (RT-PCR) Assessment and Plan (1) Atrial flutter: Status: Acute (2) Chronic restrictive lung disease: Status: Acute Plan Danita Randle is a 69 y/o woman admitted with: New onset atrial flutter with rapid ventricular response ventricular rate improved , DC IV Cardizem drip Continue Cardizem CD 120 mg and Eliquis jo ann vascular score of 3 follow echocardiogram. D-dimer 452, stable BNP. Case discussed with Dr. Snyder he recommend diuretics due to leg edema question early right-sided heart failure follow echo and will discuss diuretics. Bronchospasm s/p episode of aspiration in the setting of underlying restrictive lung disease. No acute exacerbation will hold steroids, continue Xopenex , cough medication and add Breo Seen by pulmonology they recommend CTA chest to rule out PE and then to decide about bronchoscopy due to ongoing symptoms since aspiration event. Hypothyroidism. Continue levothyroxine. TSH 1.1. Hyperlipidemia. Continue pravastatin. GERD. Continue omeprazole. Essential hypertension. Amlodipine and losartan on hold as the patient is currently receiving an infusion of diltiazem. CKD stage 3. Creatinine improved from 1.4-1.3 , follow renal function closely DVT prophylaxis: Eliquis Code status: Full Patient will need continued inpatient hospitalization for new onset rapid a flutter treatment and evaluation with continuous cardiac monitoring, rate control agents , anticoagulation evaluation by subspecialty. Quality Stroke Does the patient have a stroke diagnosis?: No VTE Prior VTE?: No VTE Risk Level:: Medical - moderate - high VTE Device Contraindication: Treatment Not Indicated VTE Drug Contraindication: N/A - Med Ordered
[2024-10-29 16:00] LABS: Hematocrit 38.3 % (37.0-47.0); Hemoglobin 12.8 g/dl (12.0-16.0); Mean Corpuscular HGB Conc 33.4 g/dl (31.0-35.0); Mean Corpuscular Hemoglobin 29.6 pg (27.0-33.0); Mean Corpuscular Volume 88.5 fL (80.0-98.0); Mean Platelet Volume 10.3 fL (9.4-12.3); Platelet Count 302 X10*3/uL (160-400); Red Blood Count 4.33 X10*6/uL (4.20-5.50); Red Cell Distribution Width 12.9 % (11.0-16.0); White Blood Count 9.9 X10*3/uL (4.8-10.8)
[2024-10-29 16:04] LABS: INTERNATIONAL NORM RATIO 1.2 (0.9-1.1); Prothrombin Time 13.8 SEC (10.9-12.4)
[2024-10-29 16:07] LABS: Partial Thromboplastin Time 34.1 SEC (26.0-36.8)
[2024-10-29] MEDS: Enoxaparin Sodium 100 MG/ML SYRINGE 90 MG SUBCUT (16:18)
[2024-10-29] MEDS: Clindamycin Phosphate/D5W 600 MG/50 ML PIGGYBACK 100 MG IV ×2 (16:21→23:51)
[2024-10-29] MEDS: Pravastatin Sodium 10 MG TABLET PO (21:11)
[2024-10-30 03:54] VITALS: BP 127/64; PULSE 68; RESP 14; TEMP 37; O2SAT 98
[2024-10-30] MEDS: Omeprazole 40 MG CAPSULE.DR PO (05:40)
[2024-10-30] MEDS: Enoxaparin Sodium 100 MG/ML SYRINGE 90 MG SUBCUT ×2 (05:40→16:04)
[2024-10-30] MEDS: Levothyroxine Sodium 75 MCG TABLET PO (05:40)
[2024-10-30 06:59] LABS: Hematocrit 37.2 % (37.0-47.0); Hemoglobin 12.5 g/dl (12.0-16.0); Mean Corpuscular HGB Conc 33.6 g/dl (31.0-35.0); Mean Corpuscular Hemoglobin 29.7 pg (27.0-33.0); Mean Corpuscular Volume 88.4 fL (80.0-98.0); Mean Platelet Volume 10.4 fL (9.4-12.3); Platelet Count 281 X10*3/uL (160-400); Red Blood Count 4.21 X10*6/uL (4.20-5.50)
[2024-10-30 08:00] VITALS: BP 127/64; PULSE 72; RESP 20; TEMP 36.4; O2SAT 95
[2024-10-30] MEDS: Cholecalciferol (Vitamin D3) 25 MCG TABLET 50 MCG PO ×2 (08:33→21:18)
[2024-10-30] MEDS: Benzonatate 100 MG CAPSULE PO ×3 (08:33→21:18)
[2024-10-30] MEDS: dilTIAZem HCL CD 120 MG CAP.ER.DEG PO (08:33)
[2024-10-30] MEDS: Clindamycin Phosphate/D5W 600 MG/50 ML PIGGYBACK 100 MG IV ×3 (08:33→23:27)
[2024-10-30] MEDS: 0.9 % Sodium Chloride Flush 3 ML SYRINGE IVFLUSH ×3 (08:40→23:28)
[2024-10-30] MEDS: Fluticasone/Vilanterol 200/25 BLST.W.DEV 1 PUFF INHALE (11:01)
--- NOTE | 2024-10-30 11:09 | HO.PM.IMPN ---
Subjective Subjective Date of Service: 10/30/24 Interval History: seen and examined this AM feels well, no complaints Review of Systems Negative except HPI/interval history. Physical Exam Vital Signs: Vital Signs: Last Vital Signs Temp 97.6 F 10/30/24 08:00 Pulse 72 10/30/24 08:00 Resp 20 10/30/24 08:00 BP 127/64 10/30/24 08:00 Pulse Ox 95 10/30/24 08:00 O2 Del Method Room Air 10/30/24 08:00 BMI result Body Mass Index 43.4 Const: Other: General - no acute distress, appears comfortable Cardiovascular - s1s2 Lungs - normal respiratory effort, clear to auscultation bilaterally, no wheezing Abdomen - soft, nontender, no rebound or guarding Extremities - no edema bilaterally Neuro - awake and alert, no focal deficits Objective Data Active Medications Acetaminophen (Acetaminophen 325 Mg Tablet) 975 mg PO Q6H PRN PRN Reason: Pain, Mild (Pain Scale 1-3), fever or headache Benzonatate (Benzonatate 100 Mg Capsule) 100 mg PO TID REPLACED BY [facility] Last Admin: 10/30/24 08:33 Dose: 100 mg Documented By: PEDRO Diltiazem HCl (Diltiazem Hcl Cd 120 Mg Cap.Er.Deg) 120 mg PO DAILY [facility]PLACED BY [facility]; Protocol Last Admin: 10/30/24 08:33 Dose: 120 mg Documented By: PEDRO Enoxaparin Sodium (Enoxaparin Sodium 100 Mg/Ml Syringe) 90 mg 1 mg/kg (90 mg) SUBCUT Q12H REPLACED BY [facility] Last Admin: 10/30/24 05:40 Dose: 90 mg Documented By: LILLIE Fluticasone Propionate (Fluticasone Propionate Nasal 16 Gm [place]) 1 spray NOSTRIL-B DAILY [facility]PLACED BY [facility] Last Admin: 10/29/24 16:17 Dose: Not Given Fluticasone/Vilanterol (Fluticasone/Vilanterol 200/25 Blst.W.Dev) 1 puff INHALE RDAILY REPLACED BY [facility] Last Admin: 10/30/24 11:01 Dose: 1 puff Documented By: ILSA Guaifenesin/Codeine Phosphate (Guaifen/Codeine Sf 200/20/10ml 10 Ml Liquid) 5 ml PO Q6H PRN PRN Reason: Cough Last Admin: 10/29/24 06:36 Dose: 5 ml Documented By: NICOLE Clindamycin Phosphate (Cleocin) 600 mg in 50 mls @ 100 mls/hr IV Q8H REPLACED BY [facility] Last Infusion: 10/30/24 09:05 Dose: Infused Documented By: PEDRO Levothyroxine Sodium (Levothyroxine Sodium 75 Mcg Tablet) 75 mcg PO DAILY@0600 REPLACED BY [facility] Last Admin: 10/30/24 05:40 Dose: 75 mcg Documented By: LILLIE Omeprazole (Omeprazole 40 Mg Capsule.Dr) 40 mg PO DAILY@0630 REPLACED BY [facility] Last Admin: 10/30/24 05:40 Dose: 40 mg Documented By: LILLIE Pravastatin Sodium (Pravastatin Sodium 10 Mg Tablet) 10 mg PO BEDTIME REPLACED BY [facility] Last Admin: 10/29/24 21:11 Dose: 10 mg Documented By: LILLIE Sodium Chloride (0.9 % Sodium Chloride Flush 3 Ml Syringe) 3 ml IVFLUSH QSHIFT REPLACED BY [facility] Last Admin: 10/30/24 08:40 Dose: 3 ml Documented By: PEDRO Vitamin D (Cholecalciferol (Vitamin D3) 25 Mcg Tablet) 50 mcg PO BID REPLACED BY [facility] Last Admin: 10/30/24 08:33 Dose: 50 mcg Documented By: PEDRO Labs 10/30/24 06:30 10/29/24 04:54 Labs: Laboratory Results - last 24 hr 10/29/24 10/29/24 10/30/24 15:51 15:52 06:30 MCV 88.5 88.4 MCH 29.6 29.7 MCHC 33.4 33.6 RDW 12.9 13.0 Plt Count 302 D 281 MPV 10.3 10.4 Absolute Nucleated RBC 0.000 0.000 Nucleated RBC % (auto) 0.0 0.0 PT 13.8 H INR 1.2 H APTT 34.1 Assessment and Plan (1) Atrial flutter: Status: Acute (2) Chronic restrictive lung disease: Status: Acute Plan Danita Randle is a 69 y/o woman admitted with: New onset atrial flutter with rapid ventricular response Pulm HTN, ? right heart failure ventricular rate improved , DC IV Cardizem drip Continue Cardizem CD 120 mg and Eliquis (lovenox for the time being due to planned procedure) jo ann vascular score of 3 follow echocardiogram - d/w cardiology -- will initiated IV diuresis -- 20mg daily i/o, weights Bronchospasm due to aspiration in the setting of underlying restrictive lung disease. No acute exacerbation will hold steroids, continue Xopenex , cough medication and add Breo IV abx changed to clinda Pulm input appreciated -- plan for bronch Hypothyroidism. Continue levothyroxine. TSH 1.1. Hyperlipidemia. Continue pravastatin. GERD. Continue omeprazole. Essential hypertension. On Amlodipine and losartan at baseline; started cardizem for flutter -- BP stable on cardizem alone, will hold baseline meds (will d/c norvasc) CKD stage 3. Creatinine improved from 1.4-1.3 , follow renal function closely DVT prophylaxis: lovenox Code status: Full Reason for hospitalization: treatment of aspiration + IV diuresis + planned bronch Quality Stroke Does the patient have a stroke diagnosis?: No VTE Prior VTE?: No VTE Risk Level:: Medical - moderate - high VTE Device Contraindication: Treatment Not Indicated VTE Drug Contraindication: N/A - Med Ordered
[2024-10-30 11:52] VITALS: BP 139/79; PULSE 68; RESP 20; TEMP 36.3; O2SAT 93
[2024-10-30] MEDS: Furosemide 20 MG/2 ML VIAL IVPUSH (12:19)
--- NOTE | 2024-10-30 13:33 | P.PNCA_ITS ---
Subjective Subjective Date of Service: 10/30/24 Principal diagnosis: atrial flutter, Interval history: Patient underwent CT scan which did not show any evidence of pulmonary embolism but does show right lower lobe infiltrative changes. Patient continues to have cough. Less leg edema. Denies palpitation. Heart rate remains controlled. Echocardiogram shows normal LV ejection fraction 60 65% with moderate biatrial enlargement with moderate tricuspid regurgitation [id number] elevation right ventricular systolic pressure with mildly elevated right atrial pressures. Review of Systems Constitutional: Reports no additional constitutional complaints Cardiovascular: Reports no additional cardiovascular complaints and Reports leg edema Respiratory: Reports cough Gastrointestinal: Reports no additional gastrointestinal complaints Musculoskeletal: Reports no additional musculoskeletal complaints Reports system reviewed and no additional complaints, except as documented Psychiatric: Reports no additional psychiatric complaints Physical Exam Vital Signs: Last Vital Signs Temp 97.4 F 10/30/24 11:52 Pulse 68 10/30/24 11:52 Resp 20 10/30/24 11:52 BP 139/79 10/30/24 11:52 Pulse Ox 93 10/30/24 11:52 O2 Del Method Room Air 10/30/24 11:52 BMI result Body Mass Index 43.4 Const General: cooperative, comfortable, no acute distress, alert and awake Nutritional Appearance: obese Orientation/consciousness: patient oriented x3 Limitations: no limitations HEENT Head: Yes normocephalic and Yes atraumatic Neck Neck: Yes trachea midline, Yes supple and Yes other (Difficult to assess JVD) Resp Effort & Inspection: normal respiratory effort Auscultation: no rales and wheezes Cardio Rate: regular rate Rhythm: abnormal rhythm irregularly irregular Heart sounds: S1 normal heart sound present, S2 normal heart sound present, no click, no gallops and no murmurs GI Inspection: Yes obesity Auscultation: normal bowel sounds Skin General skin exam: no rashes or lesions noted Neuro General: patient oriented x3 and no focal motor deficits Extrem General: No clubbing, No cyanosis and Yes edema Objective Labs and Meds 10/30/24 06:30 10/29/24 04:54 Lab results: Laboratory Results - last 24 hr 10/29/24 10/29/24 10/30/24 15:51 15:52 06:30 WBC 9.9 7.0 RBC 4.33 4.21 Hgb 12.8 12.5 Hct 38.3 37.2 MCV 88.5 88.4 MCH 29.6 29.7 MCHC 33.4 33.6 RDW 12.9 13.0 Plt Count 302 D 281 MPV 10.3 10.4 Absolute Nucleated RBC 0.000 0.000 Nucleated RBC % (auto) 0.0 0.0 PT 13.8 H INR 1.2 H APTT 34.1 Imaging Radiologist's impression: Impressions Chest CTA 10/29/24 10:48 IMPRESSION: 1. No central or segmental pulmonary emboli. Mild reflux of contrast into the hepatic veins to suggest increased right heart pressure. 2. Right lower lobe patchy opacities favored to represent infectious/inflammatory etiology. 3. Small hiatal hernia. 4. Splenomegaly. VTE: negative. Electronically signed by: Tiffany Hernández DO 10/29/2024 04:30 PM [facility] [place]: A&P Assessment and plan (1) Atrial flutter: Status: Acute Assessment and Plan: New onset atrial flutter most likely triggered by acute respiratory issue in the patient with moderate biatrial enlargement and likelihood of atrial arrhythmia being high with high likelihood of underlying obstructive sleep apnea. Patient also has mild fluid overload. Would give Lasix 20 mg IV daily strict intake and output needs to be pursued. Oral anticoagulation can be withheld till pulmonary procedure has been performed. Resume oral anticoagulation after after that and patient will need rhythm management in the long run. Continue Cardizem therapy for now. Workup for sleep apnea as an outpatient. Blood pressure is otherwise well optimized. Will follow if need be Time Spent With Patient Time: Total time managing care of this patient today ____ minutes. Progress Note: Quality Stroke Does the patient have a stroke diagnosis?: No Procedures Date of Service Date of Service: 10/30/24
[2024-10-30 15:54] VITALS: BP 132/70; PULSE 73; RESP 16; TEMP 36.6; O2SAT 97
[2024-10-30] MEDS: guaiFEN/Codeine SF 200/20/10ML 10 ML LIQUID 5 ML PO (18:06)
[2024-10-30 20:00] VITALS: BP 131/72; PULSE 74; RESP 16; TEMP 36.4; O2SAT 92
[2024-10-30] MEDS: Pravastatin Sodium 10 MG TABLET PO (21:18)
[2024-10-30 23:31] VITALS: BP 129/48; PULSE 67; RESP 16; TEMP 36.3; O2SAT 95
[2024-10-31] VITALS (7 sets, daily range): BP systolic 119–139; BP diastolic 64–72; PULSE 67–94; RESP 14–18; TEMP 36–36.7; O2SAT 94–97
[2024-10-31] MEDS: Levothyroxine Sodium 75 MCG TABLET PO (05:16)
[2024-10-31] MEDS: Enoxaparin Sodium 100 MG/ML SYRINGE 90 MG SUBCUT (05:16)
[2024-10-31] MEDS: Omeprazole 40 MG CAPSULE.DR PO (05:16)
[2024-10-31 06:42] LABS: Hematocrit 42.5 % (37.0-47.0); Hemoglobin 14.2 g/dl (12.0-16.0); Mean Corpuscular HGB Conc 33.4 g/dl (31.0-35.0); Mean Corpuscular Hemoglobin 29.6 pg (27.0-33.0); Mean Corpuscular Volume 88.5 fL (80.0-98.0); Mean Platelet Volume 10.5 fL (9.4-12.3); Platelet Count 349 X10*3/uL (160-400); Red Cell Distribution Width 12.9 % (11.0-16.0); White Blood Count 7.9 X10*3/uL (4.8-10.8)
[2024-10-31 06:57] LABS: Alanine Aminotransferase 17 U/L (0-31); Albumin Level 3.9 g/dL (3.5-5.0); Alkaline Phosphatase 98 U/L (39-117); Anion Gap 15 (12-20); Aspartate Amino Transferase 21 U/L (5-31); Bilirubin Total 0.8 mg/dL (0.0-1.0); Blood Urea Nitrogen 26 mg/dL (9-16); Calcium 9.4 mg/dL (8.4-10.2); Carbon Dioxide 24 mmol/L (22-29); Chloride 103 mmol/L (96-108); Creatinine Clr Calc Pharmacy 46.2; Estimated Glomerular Filt Rate 35; Glucose Random 113 mg/dL (60-115); Potassium 3.9 mmol/L (3.3-5.1); Sodium 138 mmol/L (135-145); Total Protein 7.3 g/dL (6.5-8.0)
[2024-10-31] MEDS: Fluticasone/Vilanterol 200/25 BLST.W.DEV 1 PUFF INHALE (07:28)
--- NOTE | 2024-10-31 09:35 | P.PNPL_ITS ---
Subjective Subjective Date of Service: 10/30/24 Principal diagnosis: atrial flutter, Interval history: Seen and examined. Doing well, still having the coughing fits. Seems to has a small FB in the RLL along with pneumonia. Now off the Eliquis. We will plan for bronchoscopy. Cardiac evaluation with continue outpt, but currently aflutter rate control. Objective Data Labs 10/31/24 06:13 10/31/24 06:13 Labs: Laboratory Results - last 24 hr 10/31/24 06:13 WBC 7.9 RBC 4.80 Hgb 14.2 Hct 42.5 MCV 88.5 MCH 29.6 MCHC 33.4 RDW 12.9 Plt Count 349 MPV 10.5 Absolute Nucleated RBC 0.000 Nucleated RBC % (auto) 0.0 Sodium 138 Potassium 3.9 D Chloride 103 Carbon Dioxide 24 Anion Gap 15 BUN 26 H Creatinine 1.48 H Estim Creat Clear Calc 46.2 Estimated GFR 35 Random Glucose 113 Calcium 9.4 Total Bilirubin 0.8 AST 21 ALT 17 Alkaline Phosphatase 98 Total Protein 7.3 Albumin 3.9 Review of Systems Constitutional: Denies fever(s) Eyes: Reports no additional eye complaints Reports sore throat Cardiovascular: Denies chest pain, Reports leg edema and Denies palpitations Respiratory: Reports cough, Reports wheezing and Reports other (small pieces of popcorn kernels) Gastrointestinal: Reports no additional gastrointestinal complaints Musculoskeletal: Reports no additional musculoskeletal complaints Endocrine: Denies palpitations Hematologic/Lymphatic: Reports no additional hematologic/lymphatic complaints Allergic/Immunologic: Reports wheezing Physical Exam 2 Vital Signs: Vital Signs: Last Vital Signs Temp 98.0 F 10/31/24 08:00 Pulse 80 10/31/24 08:00 Resp 18 10/31/24 08:00 BP 119/67 10/31/24 08:00 Pulse Ox 95 10/31/24 08:00 O2 Del Method Room Air 10/31/24 08:00 BMI result Body Mass Index 43.4 Const: General: comfortable HEENT: Head: Yes normocephalic Neck: Neck: Yes supple Chest: Chest palpation & inspection: normal inspection of the chest Resp: Effort & Inspection: normal respiratory effort Auscultation: d iminished lung sounds Cardio: Heart sounds: S1 normal heart sound present and S2 normal heart sound present GI: Palpation (GI): Soft to palpation Skin: General skin exam: no rashes or lesions noted Extrem: General: No clubbing, No cyanosis and Yes edema Procedures Date of Service Date of Service: 10/31/24 Assessment and Plan Assessment and plan (1) Aspiration into airway: Status: Acute (2) Pneumonia: Status: Acute (3) Asthma: Status: Acute Plan continue Clindamycin for now Arranging bronchoscopy for early next fit (prior to her leaving the hospital) based on the concern of a FB in her airway Time Spent With Patient Time: Total time managing care of this patient today ____ minutes. Progress Note: Quality Stroke Does the patient have a stroke diagnosis?: No
[2024-10-31] MEDS: Cholecalciferol (Vitamin D3) 25 MCG TABLET 50 MCG PO ×2 (09:36→20:15)
[2024-10-31] MEDS: dilTIAZem HCL CD 120 MG CAP.ER.DEG PO (09:36)
[2024-10-31] MEDS: Furosemide 20 MG/2 ML VIAL IVPUSH (09:36)
[2024-10-31] MEDS: Clindamycin Phosphate/D5W 600 MG/50 ML PIGGYBACK 100 MG IV ×3 (09:36→23:05)
[2024-10-31] MEDS: Benzonatate 100 MG CAPSULE PO ×3 (09:36→20:15)
[2024-10-31] MEDS: 0.9 % Sodium Chloride Flush 3 ML SYRINGE IVFLUSH ×3 (09:37→20:15)
--- NOTE | 2024-10-31 09:58 | HO.PM.IMPN ---
Subjective Subjective Date of Service: 10/31/24 Interval History: seen and examined feels the same no complaints Review of Systems Negative except HPI/interval history. Physical Exam Vital Signs: Vital Signs: Last Vital Signs Temp 98.0 F 10/31/24 08:00 Pulse 80 10/31/24 09:36 Resp 18 10/31/24 08:00 BP 119/67 10/31/24 09:36 Pulse Ox 95 10/31/24 08:00 O2 Del Method Room Air 10/31/24 08:00 BMI result Body Mass Index 43.4 Const: Other: General - no acute distress, appears comfortable Cardiovascular - regular rate and rhythm, S1-S2 Lungs - normal respiratory effort, clear to auscultation bilaterally, no wheezing Abdomen - soft, nontender, no rebound or guarding Neuro - awake and alert, no focal deficits Objective Data Active Medications Acetaminophen (Acetaminophen 325 Mg Tablet) 975 mg PO Q6H PRN PRN Reason: Pain, Mild (Pain Scale 1-3), fever or headache Benzonatate (Benzonatate 100 Mg Capsule) 100 mg PO TID [facility] Last Admin: 10/31/24 09:36 Dose: 100 mg Documented By: JAEL Diltiazem HCl (Diltiazem Hcl Cd 120 Mg Cap.Er.Deg) 120 mg PO DAILY [facility]; Protocol Last Admin: 10/31/24 09:36 Dose: 120 mg Documented By: JAEL Enoxaparin Sodium (Enoxaparin Sodium 100 Mg/Ml Syringe) 90 mg 1 mg/kg (90 mg) SUBCUT Q12H [facility] Last Admin: 10/31/24 05:16 Dose: 90 mg Documented By: CALVIN Fluticasone Propionate (Fluticasone Propionate Nasal 16 Gm [place]) 1 spray NOSTRIL-B DAILY [facility] Last Admin: 10/30/24 16:16 Dose: Not Given Documented By: PEDRO Non-Admin Reason: not available Fluticasone/Vilanterol (Fluticasone/Vilanterol 200/25 Blst.W.Dev) 1 puff INHALE RDAILY [facility] Last Admin: 10/31/24 07:28 Dose: 1 puff Documented By: FORTINO Furosemide (Furosemide 20 Mg/2 Ml Vial) 20 mg IVPUSH DAILY [facility]; Protocol Last Admin: 10/31/24 09:36 Dose: 20 mg Documented By: JAEL Guaifenesin/Codeine Phosphate (Guaifen/Codeine Sf 200/20/10ml 10 Ml Liquid) 5 ml PO Q6H PRN PRN Reason: Cough Last Admin: 10/30/24 18:06 Dose: 5 ml Documented By: PEDRO Clindamycin Phosphate (Cleocin) 600 mg in 50 mls @ 100 mls/hr IV Q8H [facility] Last Admin: 10/31/24 09:36 Dose: 100 mls/hr Documented By: JAEL Levothyroxine Sodium (Levothyroxine Sodium 75 Mcg Tablet) 75 mcg PO DAILY@0600 [facility] Last Admin: 10/31/24 05:16 Dose: 75 mcg Documented By: CALVIN Omeprazole (Omeprazole 40 Mg Capsule.) 40 mg PO DAILY@0630 [facility] Last Admin: 10/31/24 05:16 Dose: 40 mg Documented By: CALVIN Pravastatin Sodium (Pravastatin Sodium 10 Mg Tablet) 10 mg PO BEDTIME [facility] Last Admin: 10/30/24 21:18 Dose: 10 mg Documented By: CALVIN Sodium Chloride (0.9 % Sodium Chloride Flush 3 Ml Syringe) 3 ml IVFLUSH QSHIFT [facility] Last Admin: 10/31/24 09:37 Dose: 3 ml Documented By: JAEL Vitamin D (Cholecalciferol (Vitamin D3) 25 Mcg Tablet) 50 mcg PO BID [facility] Last Admin: 10/31/24 09:36 Dose: 50 mcg Documented By: JAEL Labs 10/31/24 06:13 10/31/24 06:13 Labs: Laboratory Results - last 24 hr 10/31/24 06:13 MCV 88.5 MCH 29.6 MCHC 33.4 RDW 12.9 Plt Count 349 MPV 10.5 Absolute Nucleated RBC 0.000 Nucleated RBC % (auto) 0.0 Anion Gap 15 Estim Creat Clear Calc 46.2 Estimated GFR 35 Random Glucose 113 Calcium 9.4 Total Bilirubin 0.8 AST 21 ALT 17 Alkaline Phosphatase 98 Total Protein 7.3 Albumin 3.9 Assessment and Plan (1) Atrial flutter: Status: Acute (2) Chronic restrictive lung disease: Status: Acute Plan Danita Randle is a 69 y/o woman admitted with: New onset atrial flutter with rapid ventricular response Pulm HTN, ? right heart failure ventricular rate improved , DC IV Cardizem drip Continue Cardizem CD 120 mg and Eliquis (lovenox for the time being due to planned procedure) jo ann vascular score of 3 follow echocardiogram - d/w cardiology iv lasix - day 2 i/o, weights Bronchospasm due to aspiration in the setting of underlying restrictive lung disease. No acute exacerbation will hold steroids, continue Xopenex , cough medication and add Breo clind day#3 Pulm input appreciated -- planned for bronch Hypothyroidism. Continue levothyroxine. TSH 1.1. Hyperlipidemia. Continue pravastatin. GERD. Continue omeprazole. Essential hypertension. On Amlodipine and losartan at baseline; started cardizem for flutter -- BP stable on cardizem alone, will hold baseline meds (will d/c norvasc) CKD stage 3. Creatinine improved from 1.4-1.3 , follow renal function closely DVT prophylaxis: lovenox Code status: Full Reason for hospitalization: treatment of aspiration + IV diuresis + planned bronch Quality Stroke Does the patient have a stroke diagnosis?: No VTE Prior VTE?: No VTE Risk Level:: Medical - moderate - high VTE Device Contraindication: Treatment Not Indicated VTE Drug Contraindication: N/A - Med Ordered
--- NOTE | 2024-10-31 11:09 | PM.PNCARD ---
Subjective Subjective Date of Service: 10/31/24 Principal diagnosis: atrial flutter, Interval history: Patient feeling well. Actually has diuresed well her leg edema has improved. His shortness of breath is improved. Remains in atrial flutter with controlled ventricular response. Review of Systems Constitutional: Reports no additional constitutional complaints Cardiovascular: Reports no additional cardiovascular complaints and Reports leg edema (Significantly improved) Respiratory: Reports cough Gastrointestinal: Reports no additional gastrointestinal complaints Reports system reviewed and no additional complaints, except as documented Endocrine: Reports no additional endocrine complaints Physical Exam Vital Signs: Last Vital Signs Temp 98.0 F 10/31/24 08:00 Pulse 80 10/31/24 09:36 Resp 18 10/31/24 08:00 BP 119/67 10/31/24 09:36 Pulse Ox 95 10/31/24 08:00 O2 Del Method Room Air 10/31/24 08:00 BMI result Body Mass Index 43.4 Const General: cooperative, comfortable, no acute distress, alert and awake Nutritional Appearance: obese Orientation/consciousness: patient oriented x3 Limitations: no limitations HEENT Head: Yes normocephalic and Yes atraumatic Neck Neck: Yes trachea midline, Yes supple and Yes other (Difficult to assess JVD) Resp Effort & Inspection: normal respiratory effort Auscultation: no rales and wheezes Cardio Rate: regular rate Rhythm: abnormal rhythm irregularly irregular Heart sounds: S1 normal heart sound present, S2 normal heart sound present, no click, no gallops and no murmurs GI Inspection: Yes obesity Auscultation: normal bowel sounds Skin General skin exam: no rashes or lesions noted Neuro General: patient oriented x3 and no focal motor deficits Extrem General: No clubbing, No cyanosis and Yes edema Objective Labs and Meds 10/31/24 06:13 10/31/24 06:13 Lab results: Laboratory Results - last 24 hr 10/31/24 06:13 WBC 7.9 RBC 4.80 Hgb 14.2 Hct 42.5 MCV 88.5 MCH 29.6 MCHC 33.4 RDW 12.9 Plt Count 349 MPV 10.5 Absolute Nucleated RBC 0.000 Nucleated RBC % (auto) 0.0 Sodium 138 Potassium 3.9 D Chloride 103 Carbon Dioxide 24 Anion Gap 15 BUN 26 H Creatinine 1.48 H Estim Creat Clear Calc 46.2 Estimated GFR 35 Random Glucose 113 Calcium 9.4 Total Bilirubin 0.8 AST 21 ALT 17 Alkaline Phosphatase 98 Total Protein 7.3 Albumin 3.9 Progress Note: A&P Assessment and plan (1) Atrial flutter: Status: Acute Assessment and Plan: New onset atrial flutter, rate control with mild right heart failure syndrome which seems to have significantly improved. Can switch to oral Lasix 20 mg starting tomorrow. Continue current rate control. Can hold anticoagulation therapy till her bronchoscopy is done. Resume oral anticoagulation with Eliquis as soon as possible post bronchoscopy as possible. Will need eventually rhythm control approach. She has significant biatrial enlargement and underlying sleep apnea is highly likely. Will need to pursue sleep study as an outpatient. Will set up for outpatient follow-up after Holter monitor in 3-4 weeks to discuss synchronized cardioversion. Will sign of the case and follow as outpatient Time Spent With Patient Time: Total time managing care of this patient today ____ minutes. Progress Note: Quality Stroke Does the patient have a stroke diagnosis?: No Procedures Date of Service Date of Service: 10/31/24
[2024-10-31] MEDS: Pravastatin Sodium 10 MG TABLET PO (20:15)
[2024-11-01] VITALS (7 sets, daily range): BP systolic 114–143; BP diastolic 57–81; PULSE 75–90; RESP 18–20; TEMP 36.3–37.1; O2SAT 93–96
[2024-11-01] MEDS: Fluticasone/Vilanterol 200/25 BLST.W.DEV 1 PUFF INHALE (07:18)
[2024-11-01] MEDS: Fluticasone Propionate Nasal 16 GM SPRAY 1 SPRAY NOSTRIL-B (08:50)
[2024-11-01] MEDS: dilTIAZem HCL CD 120 MG CAP.ER.DEG PO (08:50)
[2024-11-01] MEDS: Clindamycin Phosphate/D5W 600 MG/50 ML PIGGYBACK 100 MG IV ×2 (08:50→16:11)
[2024-11-01] MEDS: Cholecalciferol (Vitamin D3) 25 MCG TABLET 50 MCG PO ×2 (08:50→21:37)
[2024-11-01] MEDS: Furosemide 20 MG TABLET PO (08:50)
[2024-11-01] MEDS: Benzonatate 100 MG CAPSULE PO ×3 (08:50→21:37)
[2024-11-01] MEDS: 0.9 % Sodium Chloride Flush 3 ML SYRINGE IVFLUSH ×3 (08:58→21:37)
--- NOTE | 2024-11-01 10:45 | MHC.CM.PN ---
Per ROUNDS discussion, Patient is not yet medically cleared for dc (may have a Bronchoscopy today); home self care is the goal and CM will continue to follow.
[2024-11-01] MEDS: Pravastatin Sodium 10 MG TABLET PO (21:37)
[2024-11-02] VITALS (12 sets, daily range): BP systolic 110–161; BP diastolic 47–96; PULSE 73–103; RESP 16–20; TEMP 36.3–37.1; O2SAT 92–98
[2024-11-02] MEDS: Clindamycin Phosphate/D5W 600 MG/50 ML PIGGYBACK 100 MG IV ×4 (00:44→23:28)
[2024-11-02] MEDS: Levothyroxine Sodium 75 MCG TABLET PO (05:42)
[2024-11-02] MEDS: Omeprazole 40 MG CAPSULE.DR PO (05:42)
[2024-11-02] MEDS: Fluticasone/Vilanterol 200/25 BLST.W.DEV 1 PUFF INHALE (08:01)
[2024-11-02] MEDS: Benzonatate 100 MG CAPSULE PO ×2 (08:28→22:02)
[2024-11-02] MEDS: Cholecalciferol (Vitamin D3) 25 MCG TABLET 50 MCG PO ×2 (08:28→22:02)
[2024-11-02] MEDS: Fluticasone Propionate Nasal 16 GM SPRAY 1 SPRAY NOSTRIL-B (08:28)
[2024-11-02] MEDS: dilTIAZem HCL CD 120 MG CAP.ER.DEG PO (08:28)
[2024-11-02] MEDS: Furosemide 20 MG TABLET PO (08:28)
[2024-11-02] MEDS: 0.9 % Sodium Chloride Flush 3 ML SYRINGE IVFLUSH ×2 (08:29→22:02)
--- NOTE | 2024-11-02 13:15 | MHC.SHP ---
Pre-Procedural Eval Section A - 24 Hr Update-Section A only Date of Service: 11/02/24 The patient is an INPATIENT: Yes Section B - Complete if H&P > 30 days Chief Complaint: Rapid a-flutter Allergies: Allergies Allergy/AdvReac Type Severity Reaction Status Date / Time amoxicillin Allergy hives Verified 10/28/24 14:35 ciprofloxacin Allergy Hives Verified 10/28/24 14:35 latex Allergy vaginal Verified 10/28/24 14:35 itching Plan I have reviewed the history and physical and performed a pertinent physical examination on my patient. No changes have occurred unless specified. Time Spent With Patient Time: Total time managing care of this patient today ____ minutes.
--- NOTE | 2024-11-02 15:05 | HO.PM.IMPN ---
Subjective Subjective Date of Service: 11/02/24 Interval History: seen and examined No pain plan for bronch for today no complaints Review of Systems Negative except HPI/interval history. Physical Exam Vital Signs: Vital Signs: Last Vital Signs Temp 98.8 F 11/02/24 13:34 Pulse 78 11/02/24 13:34 Resp 16 11/02/24 13:34 BP 148/88 H 11/02/24 13:34 Pulse Ox 97 11/02/24 13:34 O2 Del Method Room Air 11/02/24 13:34 BMI result Body Mass Index 43.4 Appearing in no acute distress lung sounds are clear to auscultation heart regular rate rhythm, clear S1, S2 positive bowel sounds, abdomen is soft, nontender neuro patient is alert x3, no focal deficits Objective Data Active Medications Acetaminophen (Acetaminophen 325 Mg Tablet) 975 mg PO Q6H PRN PRN Reason: Pain, Mild (Pain Scale 1-3), fever or headache Benzonatate (Benzonatate 100 Mg Capsule) 100 mg PO TID [facility] Last Admin: 11/02/24 08:28 Dose: 100 mg Documented By: ARLETTE Diltiazem HCl (Diltiazem Hcl Cd 120 Mg Cap.Er.Deg) 120 mg PO DAILY [facility]; Protocol Last Admin: 11/02/24 08:28 Dose: 120 mg Documented By: ARLETTE Enoxaparin Sodium (Enoxaparin Sodium 100 Mg/Ml Syringe) 90 mg 1 mg/kg (90 mg) SUBCUT Q12H [facility] Last Admin: 11/01/24 06:51 Dose: Not Given Documented By: JORGE Non-Admin Reason: Physician Held Med Fluticasone Propionate (Fluticasone Propionate Nasal 16 Gm [place]) 1 spray NOSTRIL-B DAILY [facility] Last Admin: 11/02/24 08:28 Dose: 1 spray Documented By: ARLETTE Fluticasone/Vilanterol (Fluticasone/Vilanterol 200/25 Blst.W.Dev) 1 puff INHALE RDAILY [facility] Last Admin: 11/02/24 08:01 Dose: 1 puff Documented By: SHELIA Furosemide (Furosemide 20 Mg Tablet) 20 mg PO DAILY [facility]; Protocol Last Admin: 11/02/24 08:28 Dose: 20 mg Documented By: ARLETTE Guaifenesin/Codeine Phosphate (Guaifen/Codeine Sf 200/20/10ml 10 Ml Liquid) 5 ml PO Q6H PRN PRN Reason: Cough Last Admin: 10/30/24 18:06 Dose: 5 ml Documented By: PEDRO Clindamycin Phosphate (Cleocin) 600 mg in 50 mls @ 100 mls/hr IV Q8H [facility] Last Infusion: 11/02/24 08:59 Dose: Infused Documented By: ARLETTE Lactated Ringer's (Lr) 1,000 mls @ 100 mls/hr IVCONT .Q10H [facility] Levothyroxine Sodium (Levothyroxine Sodium 75 Mcg Tablet) 75 mcg PO DAILY@0600 [facility] Last Admin: 11/02/24 05:42 Dose: 75 mcg Documented By: JORGE Omeprazole (Omeprazole 40 Mg Capsule.Dr) 40 mg PO DAILY@0630 [facility] Last Admin: 11/02/24 05:42 Dose: 40 mg Documented By: JORGE Pravastatin Sodium (Pravastatin Sodium 10 Mg Tablet) 10 mg PO BEDTIME [facility] Last Admin: 11/01/24 21:37 Dose: 10 mg Documented By: JORGE Sodium Chloride (0.9 % Sodium Chloride Flush 3 Ml Syringe) 3 ml IVFLUSH QSHIFT [facility] Last Admin: 11/02/24 08:29 Dose: 3 ml Documented By: ARLETTE Vitamin D (Cholecalciferol (Vitamin D3) 25 Mcg Tablet) 50 mcg PO BID [facility] Last Admin: 11/02/24 08:28 Dose: 50 mcg Documented By: ARLETTE Labs 10/31/24 06:13 10/31/24 06:13 Assessment and Plan (1) Atrial flutter: Status: Acute (2) Chronic restrictive lung disease: Status: Acute Plan 69 y/o woman admitted with new onset aflutter and bronchospasms New onset atrial flutter with rapid ventricular response Pulm HTN, ? right heart failure ventricular rate improved , DC IV Cardizem drip Continue Cardizem CD 120 mg and Eliquis (lovenox for the time being due to planned procedure) jo ann vascular score of 3 follow echocardiogram>normal EF s/p 2 days iv lasix>now on po Bronchospasm due to aspiration in the setting of underlying restrictive lung disease. No acute exacerbation will hold steroids, continue Xopenex , cough medication and add Breo clindamycin Pulm input appreciated >s/p bronch today finding popcorn kernel Hypothyroidism Continue levothyroxine. TSH 1.1. Hyperlipidemia Continue pravastatin. GERD Continue omeprazole. Essential hypertension. On Amlodipine and losartan at baseline; started cardizem for flutter BP stable on cardizem alone, will hold baseline meds (will d/c norvasc) CKD stage 3. Creatinine improved from 1.4-1.3 , follow renal function closely DVT prophylaxis lovenox Code status: Full Reason for hospitalization: treatment of aspiration + planned bronch Quality Stroke Does the patient have a stroke diagnosis?: No VTE Prior VTE?: No VTE Risk Level:: Medical - moderate - high VTE Device Contraindication: Treatment Not Indicated VTE Drug Contraindication: N/A - Med Ordered
--- NOTE | 2024-11-02 15:07 | HO.PM.IMPN ---
Subjective Subjective Date of Service: 11/01/24 Interval History: late entry for 11/01 seen and examined feels the same Review of Systems Negative except HPI/interval history. Physical Exam Vital Signs: Vital Signs: Last Vital Signs Temp 98.8 F 11/02/24 13:34 Pulse 78 11/02/24 13:34 Resp 16 11/02/24 13:34 BP 148/88 H 11/02/24 13:34 Pulse Ox 97 11/02/24 13:34 O2 Del Method Room Air 11/02/24 13:34 BMI result Body Mass Index 43.4 Const: Other: General - no acute distress, appears comfortable Cardiovascular - regular rate and rhythm, S1-S2 Lungs - normal respiratory effort, clear to auscultation bilaterally, no wheezing Abdomen - soft, nontender, no rebound or guarding Neuro - awake and alert, no focal deficits Objective Data Active Medications Acetaminophen (Acetaminophen 325 Mg Tablet) 975 mg PO Q6H PRN PRN Reason: Pain, Mild (Pain Scale 1-3), fever or headache Benzonatate (Benzonatate 100 Mg Capsule) 100 mg PO TID [facility] Last Admin: 11/02/24 08:28 Dose: 100 mg Documented By: ARLETTE Diltiazem HCl (Diltiazem Hcl Cd 120 Mg Cap.Er.Deg) 120 mg PO DAILY [facility]; Protocol Last Admin: 11/02/24 08:28 Dose: 120 mg Documented By: ARLETTE Enoxaparin Sodium (Enoxaparin Sodium 100 Mg/Ml Syringe) 90 mg 1 mg/kg (90 mg) SUBCUT Q12H [facility] Last Admin: 11/01/24 06:51 Dose: Not Given Documented By: JORGE Non-Admin Reason: Physician Held Med Fluticasone Propionate (Fluticasone Propionate Nasal 16 Gm [place]) 1 spray NOSTRIL-B DAILY [facility] Last Admin: 11/02/24 08:28 Dose: 1 spray Documented By: ARLETTE Fluticasone/Vilanterol (Fluticasone/Vilanterol 200/25 Blst.W.Dev) 1 puff INHALE RDAILY [facility] Last Admin: 11/02/24 08:01 Dose: 1 puff Documented By: SHELIA Furosemide (Furosemide 20 Mg Tablet) 20 mg PO DAILY [facility]; Protocol Last Admin: 11/02/24 08:28 Dose: 20 mg Documented By: ARLETTE Guaifenesin/Codeine Phosphate (Guaifen/Codeine Sf 200/20/10ml 10 Ml Liquid) 5 ml PO Q6H PRN PRN Reason: Cough Last Admin: 10/30/24 18:06 Dose: 5 ml Documented By: PEDRO Clindamycin Phosphate (Cleocin) 600 mg in 50 mls @ 100 mls/hr IV Q8H [facility] Last Infusion: 11/02/24 08:59 Dose: Infused Documented By: ARLETTE Lactated Ringer's (Lr) 1,000 mls @ 100 mls/hr IVCONT .Q10H [facility] Levothyroxine Sodium (Levothyroxine Sodium 75 Mcg Tablet) 75 mcg PO DAILY@0600 [facility] Last Admin: 11/02/24 05:42 Dose: 75 mcg Documented By: JORGE Omeprazole (Omeprazole 40 Mg Capsule.Dr) 40 mg PO DAILY@0630 [facility] Last Admin: 11/02/24 05:42 Dose: 40 mg Documented By: JORGE Pravastatin Sodium (Pravastatin Sodium 10 Mg Tablet) 10 mg PO BEDTIME [facility] Last Admin: 11/01/24 21:37 Dose: 10 mg Documented By: JORGE Sodium Chloride (0.9 % Sodium Chloride Flush 3 Ml Syringe) 3 ml IVFLUSH QSHIFT [facility] Last Admin: 11/02/24 08:29 Dose: 3 ml Documented By: ARLETTE Vitamin D (Cholecalciferol (Vitamin D3) 25 Mcg Tablet) 50 mcg PO BID [facility] Last Admin: 11/02/24 08:28 Dose: 50 mcg Documented By: ARLETTE Labs 10/31/24 06:13 10/31/24 06:13 Assessment and Plan (1) Atrial flutter: Status: Acute (2) Chronic restrictive lung disease: Status: Acute Plan Danita Randle is a 69 y/o woman admitted with: New onset atrial flutter with rapid ventricular response Pulm HTN, ? right heart failure ventricular rate improved , DC IV Cardizem drip Continue Cardizem CD 120 mg and Eliquis (lovenox for the time being due to planned procedure) jo ann vascular score of 3 follow echocardiogram - d/w cardiology s/p 2 days iv lasix -- now on PO; Bronchospasm due to aspiration in the setting of underlying restrictive lung disease. No acute exacerbation will hold steroids, continue Xopenex , cough medication and add Breo clind day#4 Pulm input appreciated -- planned for bronch today but cancelled due to OR scheduling issues Hypothyroidism. Continue levothyroxine. TSH 1.1. Hyperlipidemia. Continue pravastatin. GERD. Continue omeprazole. Essential hypertension. On Amlodipine and losartan at baseline; started cardizem for flutter -- BP stable on cardizem alone, will hold baseline meds (will d/c norvasc) CKD stage 3. Creatinine improved from 1.4-1.3 , follow renal function closely DVT prophylaxis: lovenox Code status: Full Reason for hospitalization: treatment of aspiration + planned bronch Quality Stroke Does the patient have a stroke diagnosis?: No VTE Prior VTE?: No VTE Risk Level:: Medical - moderate - high VTE Device Contraindication: Treatment Not Indicated VTE Drug Contraindication: N/A - Med Ordered
--- NOTE | 2024-11-02 21:10 | P.BOP_ITS ---
Brief Operative Note Date of Service: 11/02/24 Pre-op diagnosis: FB Aspiration, pneumonia Post-op diagnosis: same Procedure: Bronchoscopy with basket retrieval of foreign body (food matter) and washings Implants: Surgeon: Yousuf Thorpe MD Anesthesia: GETA Was an Licensing Registration Examiner used for this Procedure?: No Estimated blood loss (mL): 0 Pathology: none sent Condition: stable Disposition: floor
[2024-11-02] MEDS: Pravastatin Sodium 10 MG TABLET PO (22:02)
[2024-11-03 03:43] VITALS: BP 117/59; PULSE 78; RESP 20; TEMP 36.6; O2SAT 92
[2024-11-03] MEDS: Levothyroxine Sodium 75 MCG TABLET PO (05:04)
[2024-11-03] MEDS: Omeprazole 40 MG CAPSULE.DR PO (05:04)
--- NOTE | 2024-11-03 05:23 | OP_ITS ---
DATE OF SERVICE: 11/02/2024 SURGEON: Yousuf Thorpe MD PREOPERATIVE DIAGNOSIS: POSTOPERATIVE DIAGNOSIS: PROCEDURE PERFORMED: Bronchoscopy with basket retrieval of foreign body and also bronchial washings. ESTIMATED BLOOD LOSS: None. COMPLICATIONS: No apparent complications. ANESTHESIA: General endotracheal anesthesia was performed. ASSISTANTS: None. SPECIMENS: ASA CLASSIFICATION: III. PREOPERATIVE DIAGNOSES: Aspiration, foreign body, and pneumonia. POSTOPERATIVE DIAGNOSES: Aspiration, foreign body, and pneumonia. PATHOLOGY: None. DESCRIPTION OF PROCEDURE: The patient was adequately sedated and intubated. After the patient was intubated, the flexible digital bronchoscope was inserted via the endotracheal tube to the level of main gurvinder. Quickly on the survey, we see that there was a yellowish foreign body obstructing the bronchus intermedius on the right hand side. This was causing a complete obstruction with some purulent secretions involving the foreign body. On the rest of the airway survey, the bronchoscope was navigated to the left side and tracheobronchial tree was examined on the left. Therefore, the bronchoscope was navigated to the right mainstem bronchus and subsequently to the bronchus intermedius where the foreign body is located. Initially, forceps were tried to use to try to grasp the foreign body. However, it was too smooth and indurated, could not be grasped by the forceps. Therefore, that was replaced with a basket. Once introduced into the bronchus intermedius with the basket, the foreign body was able to be grasped and subsequently removed from the airway. After removal of the foreign body, the airway was examined. There was significant erythema of the airways in the right lower lobe. Also, the right middle lobe opening was edematous and partially closed, but it did open up with dynamic breathing and also the bronchoscope was able to go through the opening, and the rest of the airway was indeed intact. Bronchial washings were collected throughout the right lower lobe to try to remove any other debris, which was done without any significant evidence of any further debris. Bronchial washings were also collected on the left to make sure there was not any debris and again, no significant debris identified. The bronchial washings were sent for culture. No significant purulent secretions after the foreign body was removed, which was reassuring. The bronchoscope was then removed. The total endoscopic time was probably about 20 minutes. Patient tolerated procedure well. Vital signs were stable throughout the procedure. Complications: none Estimated blood loss: none MD JACKELIN Riley/VERA / [id number] MTDPaulino
[2024-11-03 07:24] VITALS: BP 131/56; PULSE 86; RESP 16; TEMP 37.1; O2SAT 93
--- NOTE | 2024-11-03 07:31 | P.DS_ITS ---
DS: Providers Provider Date of Service: 11/03/24 Date of admission: 10/28/24 19:18 Date of discharge: 11/06/24 Primary care physician: Sugey Rice MD Consults: 10/28/24 19:23 Consult to Cardiology Routine Consulting Provider: [facility] Reason for consultation: rapid a-flutter Has provider been notified: No 10/28/24 19:46 Consult to Pulmonology Routine Consulting Provider: Yousuf Thorpe Reason for consultation: Persistent cough, wheezing, episodes of aspiration Has provider been notified: No DS: Diagnosis Discharge Diagnosis (1) Atrial flutter: Status: Acute (2) Chronic restrictive lung disease: Status: Acute DS: Summary Hospital Course Hospital Course: History and physical as per admitting provider. Danita Randle is a very pleasant 69 years old woman with past medical history significant for restrictive lung disease, pulmonary nodules, hypertension, CKD, hypothyroidism and hyperlipidemia presents to the emergency department after she was found to have a flutter during preop for a bronchoscopy. She had aspiration episode about 2 weeks ago. She does complain of persistent cough over the last couple of weeks. Denied any palpitations, chest pain or shortness on breath. She reported edema to the lower extremities. She did not report any acute gastrointestinal or genitourinary symptoms. She does not have history of cardiac arrhythmias or heart failure. About 5 weeks ago she had right hand surgery. There is no history of tobacco smoking. In the ED, she was found to have tachycardia consistent with a flutter and tachypnea. Her oxygen saturation is fluctuating between 93-95% on room air. Blood workup showed no leukocytosis. Hemoglobin and platelets are normal. Electrolytes are normal. Creatinine is 1.42 and BUN 25. LFTs and lipase are normal. BNP 64 and troponin 2.8. CXR is negative. ECG showed atrial flutter with 2:1 av conduction ED tx: Diltiazem 20 mg IV then infusion, NS 1 L bolus 69-year-old woman treated for new onset atrial flutter and bronchospasms. Patient treated initially with IV Cardizem drip and transitioned to Cardizem 120 mg, she was started on Eliquis with noted Donnie Vasc score of 3. Echocardiogram showed normal EF with pulmonary hypertension, possibly related to sleep apnea, she will need an outpatient sleep study. She was also treated with 2 days of IV Lasix and transitioned back to oral. The bronchospasms or secondary to aspiration of a popcorn kernel. She was placed on clindamycin empirically. She was seen evaluated by pulmonology and is status post bronchoscopy with removal of said popcorn kernel. Plan is for patient to discharge home to follow up with Cardiology for Holter monitor which their office will set up. Hypothyroidism. Continue levothyroxine Hyperlipidemia. Continue statin GERD. Continue PPI Hypertension. So far blood pressure has been stable on Cardizem, we will continue losartan and stop amlodipine. CKD stage 3 creatinine at baseline Time Attestation Discharge Coordination Time (in mins): 42 Quality: Safe Use of Opioids Does Pt have an Active Cancer Diagnosis on the Problem List?: No Quality: Stroke Does the patient have a stroke diagnosis?: No Physical Exam Vital Signs: Vital Signs: Last Vital Signs Temp 98.7 F 11/03/24 07:24 Pulse 86 11/03/24 07:24 Resp 16 11/03/24 07:24 BP 131/56 L 11/03/24 07:24 Pulse Ox 93 11/03/24 07:24 O2 Del Method Room Air 11/03/24 07:24 O2 Flow Rate 10 11/02/24 15:45 BMI result Body Mass Index 43.4 Appearing in no acute distress head is normocephalic atraumatic eyes pupils are PERRLA sclera is anicteric mouth throat mucous membranes are intact and moist neck is supple no lymphadenopathy, no JVD noted lung sounds are clear to auscultation heart regular rate rhythm, clear S1, S2 positive bowel sounds, abdomen is soft, nontender neuro patient is alert x3, no focal deficits Discharge Plan Discharge Anticipated Discharge Date/Time: 11/03/24 07:28 Patient Disposition: Home, Self-Care Discharge Diagnosis: Aspiration Atrial fibrillation Referrals: Sugey Rice MD [Primary Care Provider] - 1 Week Discharge Medications: New Eliquis 5 mg Tablet 5 mg PO BID Qty: 60 0RF diltiazem HCl [Cardizem CD] 120 mg Capsule,Extended Release 24hr 120 mg PO DAILY Qty: 30 0RF Protocol: Hold for SBP/HR < HOLD for SBP < : 90 HOLD for HR < : 60 Continued benzonatate 200 mg capsule 200 mg PO BID PRN (Reason: cough) 30 Days Qty: 60 6RF potassium citrate 10 mEq (1,080 mg) tablet extended release 20 meq PO TID codeine-guaifenesin 10-100 mg/5 mL liquid 5 ml PO Q6H PRN (Reason: cough) fluticasone propionate 50 mcg/actuation spray,suspension 1 spray intranasal DAILY levothyroxine 75 mcg capsule 75 mcg PO DAILY@0600 losartan 50 mg tablet 50 mg PO DAILY omeprazole 40 mg capsule,delayed release(DR/EC) 40 mg PO DAILY@0630 cholecalciferol (vitamin D3) 50 mcg (2,000 unit) capsule 50 mcg PO BID pravastatin 10 mg tablet 10 mg PO BEDTIME fluticasone propion-salmeterol [Wixela Inhub] 250-50 mcg/dose blister with device 1 inh inhalation Q12H 30 Days Qty: 60 11RF Discontinued doxycycline hyclate 100 mg capsule 100 mg PO BID 10 Days Qty: 20 0RF amlodipine 5 mg tablet 5 mg PO DAILY Discharge Orders: Discharge Order (Routine); Ordered 11/03/24 Ordered By: Denise Thorpe Diet: Advance to usual diet Activity on Discharge: As tolerated Stand Alone Forms: Patient Portal Discharge page Print Language: Thai Care Plan Goals: You have been started on new medication for atrial fibrillation: Eliquis 5 mg twice daily, Cardizem 120 mg daily Continue losartan for blood pressure control, amlodipine has been stopped Health Concerns: Aspiration Atrial fibrillation Plan of Treatment: Follow-up with primary care provider as needed Take all medications as prescribed Follow up with Cardiology, they will set you up with a Holter monitor Assessment: See discharge summary Patient Instructions: Diltiazem (By mouth), Apixaban (By mouth), Atrial Flutter (GEN), A-fib (Atrial Fibrillation) (GEN) Discharge Date/Time: 11/03/24 09:55
[2024-11-03] MEDS: Apixaban 5 MG TABLET PO (08:08)
[2024-11-03] MEDS: Furosemide 20 MG TABLET PO (08:08)
[2024-11-03] MEDS: Cholecalciferol (Vitamin D3) 25 MCG TABLET 50 MCG PO (08:08)
[2024-11-03] MEDS: dilTIAZem HCL CD 120 MG CAP.ER.DEG PO (08:08)
[2024-11-03] MEDS: Benzonatate 100 MG CAPSULE PO (08:08)
[2024-11-03] MEDS: Clindamycin Phosphate/D5W 600 MG/50 ML PIGGYBACK 100 MG IV (08:09)
[2024-11-03] MEDS: 0.9 % Sodium Chloride Flush 3 ML SYRINGE IVFLUSH (08:10)
[2024-11-03] MEDS: Fluticasone Propionate Nasal 16 GM SPRAY 1 SPRAY NOSTRIL-B (08:15)
[2024-11-03] MEDS: Fluticasone/Vilanterol 200/25 BLST.W.DEV 1 PUFF INHALE (08:29)
[2024-11-03 08:33] VITALS: PULSE 88; RESP 16; O2SAT 97
--- NOTE | 2024-11-03 09:48 | MHC.CM.PN ---
PT MEDICALLY CLEARED FOR DC HOME SELF-CARE, PT TO CALL FAMILY FOR TRANSPORT
--- NOTE | 2024-11-03 11:42 | P.CDIM_ITS ---
PROVIDER RESPONSE TEXT: To clarify, the appropriate diagnosis supported by the clinical indicators: Obesity Due to excess calories QUERY TEXT: PHYSICIAN'S DOCUMENTATION REQUEST Date of Query: 11/03/2024 07:13 AM EST Patient Name: Danita Randle Admit Date: 10/29/2024 Dear Denise Thorpe MEDICAL EDITOR, A review of the medical record indicates additional documentation may be needed. Please review below and update the documentation accordingly. Clinical Indicators: BMI: 43.4 HT: 5t 5in WT: 118.4kg If possible, please provide an associated diagnosis related to the abnormal BMI, such as: Obesity Due to excess calories Obesity Due to other cause Specify the other cause Severe or Morbid Obesity Other (explain) Clinically unable to determine (explain) Thank you, Fabiana Brambila, CCS, CDIS Use of terms such as suspected, likely, concern for, or probable (associated with a specific diagnosi s that is being evaluated, monitored, or treated as if it exists) are acceptable and can be coded in the inpatient se tting, when documented at the time of discharge. Please use your independent medical judgment in providing your response. THIS QUERY IS PART OF THE PERMANENT MEDICAL RECORD
== END 2024-11-03 09:55 | disposition home or self-care (01) | DRG 308 ==
LOC: HO.ED 18:33 → HO.EDOVER 20:18 → HO.IMC 10-29 15:30
PROVIDERS: Family Medicine; Hospitalist; Physician Assistant; Admitting Provider Internal Medicine; Emergency Provider Emergency Medicine; PCP Family Medicine; Visit Provider Nurse Practitioner Acute Care
PROC: 0BJ08ZZ Inspection of Tracheobronchial Tree, Via Natural or Artificial Opening Endoscopic (ICD-10-PCS; CPT 31622; principal; 2024-11-02 14:30)
DX: I48.92 Unspecified atrial flutter (principal); J69.0 Pneumonitis due to inhalation of food and vomit; I13.0 Hypertensive heart and chronic kidney disease with heart failure and stage 1 through stage 4 chronic kidney disease, or unspecified chronic kidney disease; J45.41 Moderate persistent asthma with (acute) exacerbation; Z68.41 Body mass index [BMI] 40.0-44.9, adult; T17.528A Food in bronchus causing other injury, initial encounter; R73.03 Prediabetes; E78.5 Hyperlipidemia, unspecified; I07.1 Rheumatic tricuspid insufficiency; N18.30 Chronic kidney disease, stage 3 unspecified; E66.09 Other obesity due to excess calories; G47.33 Obstructive sleep apnea (adult) (pediatric); I27.20 Pulmonary hypertension, unspecified; E03.9 Hypothyroidism, unspecified; K21.9 Gastro-esophageal reflux disease without esophagitis; I50.811 Acute right heart failure; Z20.822 Contact with and (suspected) exposure to COVID-19; Z79.51 Long term (current) use of inhaled steroids; Z79.890 Hormone replacement therapy; Z79.899 Other long term (current) drug therapy
CPT/HCPCS: 0241U; 36415; 71045; 71275; 80048; 80053; 81001; 83690; 83735; 83880; 84443; 84484; 85025; 85027; 85379; 85610; 85730; 87070; 87116; 87205; 87206; 93005; 93306; 94640; 99285; J0171; J0736; J1100; J1650; J1940; J2003; J2405; J2704; J2919; J3010; Q9957; Q9967

== ENCOUNTER → 2024-10-28 14:54 | Outpatient (BNV) | payer MEDICARE, OTHER, SELFPAY | PROVIDERS: Emergency Provider Emergency Medicine; PCP Family Medicine; Visit Provider Radiology Diagnostic Radiology | DX: R06.09 Other forms of dyspnea (principal); R05.9 Cough, unspecified | CPT/HCPCS: 71045 ==

== ENCOUNTER → 2024-10-28 15:41 | Outpatient (BNV) | payer MEDICARE, OTHER, SELFPAY | PROVIDERS: Emergency Provider Emergency Medicine; PCP Family Medicine; Visit Provider Internal Medicine | DX: I48.92 Unspecified atrial flutter (principal); J98.4 Other disorders of lung | CPT/HCPCS: 99223; 99232; 99239; 99499 ==

== ENCOUNTER 2024-10-28 19:18 | Outpatient (BNV) | payer MEDICARE, OTHER, SELFPAY | END 2024-10-29 07:00 | PROVIDERS: Admitting Provider Internal Medicine; Emergency Provider Emergency Medicine; PCP Family Medicine; Visit Provider Internal Medicine Cardiovascular Disease | DX: I36.1 Nonrheumatic tricuspid (valve) insufficiency (principal); I51.7 Cardiomegaly | CPT/HCPCS: 93306 ==

== ENCOUNTER → 2024-10-28 19:18 | Outpatient (BNV) | payer MEDICARE, OTHER, SELFPAY | PROVIDERS: Admitting Provider Internal Medicine; Emergency Provider Emergency Medicine; PCP Family Medicine; Visit Provider Internal Medicine Cardiovascular Disease | DX: I48.92 Unspecified atrial flutter (principal) | CPT/HCPCS: 99222 ==

== ENCOUNTER → 2024-10-28 19:18 | Outpatient (BNV) | payer MEDICARE, OTHER, SELFPAY | PROVIDERS: Admitting Provider Internal Medicine; Emergency Provider Emergency Medicine; PCP Family Medicine; Visit Provider Hospitalist | DX: I48.92 Unspecified atrial flutter (principal); J45.41 Moderate persistent asthma with (acute) exacerbation; R91.8 Other nonspecific abnormal finding of lung field; T17.908A Unspecified foreign body in respiratory tract, part unspecified causing other injury, initial encounter | CPT/HCPCS: 31635; 99223; 99232 ==

== ENCOUNTER → 2024-11-12 10:36 | Outpatient (REF) | payer MEDICARE, OTHER, SELFPAY | LOC: HO.CARD 10:36 | PROVIDERS: PCP Family Medicine; Visit Provider Internal Medicine Cardiovascular Disease | DX: I48.92 Unspecified atrial flutter (principal); J98.4 Other disorders of lung; J45.41 Moderate persistent asthma with (acute) exacerbation; R06.81 Apnea, not elsewhere classified | CPT/HCPCS: 93225 ==

== ENCOUNTER → 2024-11-12 10:38 | Outpatient (BNV) | payer MEDICARE, OTHER, SELFPAY | PROVIDERS: PCP Family Medicine; Visit Provider Internal Medicine Cardiovascular Disease | DX: I48.92 Unspecified atrial flutter (principal) | CPT/HCPCS: 93227 ==

== ENCOUNTER 2024-11-25 10:01 | Outpatient (AMB) | payer MEDICARE, OTHER, SELFPAY ==
[2024-11-25 10:17] VITALS: BP 140/72; PULSE 85; O2SAT 97; BMI 43.5
--- NOTE | 2024-11-25 10:17 | A.OFFVIS_ITS ---
Vital Signs 11/25/24 10:17 Height 5 ft 5 in Weight 261 lb 3.964 oz BMI 43.5 BP 140/72 H Blood Pressure Location Lt brachial Position Sitting Pulse 85 Pulse Source Pulse Oximeter Pulse Oximetry (%) 97 Oxygen Delivery Method Room Air Intake Visit Reasons: Dyspnea Allergies amoxicillin Allergy (Verified 11/25/24 10:20) hives ciprofloxacin Allergy (Verified 11/25/24 10:20) Hives latex Allergy (Verified 11/25/24 10:20) vaginal itching HPI Comments Details: The patient is a 69 year woman presenting with an abnormal pulmonary function study and CT scan. Apparently the patient has been having worsening shortness of breath. She has a rescue inhaler. She does use it as needed. Typically less than 2 times a week. She did undergo pulmonary function studies at [facility] which I personally reviewed. She appeared to have a mild obstruction consistent with obstructive airway disease in addition to that she had a mild restrictive ventilatory defect consistent with restrictive lung. She also had a mild decrease in the diffusing capacity but corrected to normal when corrected for the alveolar volume that suggest mainly extrinsic cause for the diffusion impairment. The patient also underwent a CT scan after having the abnormal pulmonary function study which I also personally reviewed. It appeared that her trachea appeared to be flat in a little bit consistent with tracheomalacia. This is mainly the mid and distal part of the trachea. In addition to that she has small subcentimeter pulmonary nodules have any follow- up in a year's time. No significant interstitial lung disease except she did have some areas of scarring primarily in the right middle lobe area and also at the bases just some areas of atelectasis and some reticular changes. Although no overt interstitial lung disease appreciated. And no significant ground-glass opacities appreciated. She was feeling much better prior to the appointment but then about a week ago she was eating popcorn and she aspirated some pop according to her lungs. She was coughing a lot she has been coughing significant amount of lately. Last night she did a little better but the night before she did have a hard time sleeping because of cough. She did have some codeine that she could take that helped relieve some of the symptoms. She was able to remove some specks out of the airways which she noticed some specks in her sputum. In the office she does have some wheezing right more than left. Will have her get an x-ray to see if there is any significant collapsibility atelectasis of the lungs from any foreign body. In the meantime though will go ahead and start her on inhaled cortical steroid. And although she has wheezing will avoid systemic steroids since she just recently had surgery of her hand. The patient also provide an aerobika CPT device to try to use it multiple times a day to try to help her with bronchopulmonary hygiene and mucus clearance and hopefully removal of any residual foreign body in her lungs. She will undergo a chest x-ray to assess for any significant findings. If she does have evidence of pneumonia I will send some antibiotics in the pharmacy as well. If the patient shows no improvement of her symptoms then a evaluation with bronchoscopy may be warranted just to look for any persistent foreign bodies. However, will hopefully avoid any semi invasive procedures she is able to clear up her own secretions at this time. 11/25/2024 the patient is here for pulmonary follow-up visit. The patient overall has been feeling a lot better. She ended up in the hospital after being diagnosed with AFib flutter. This is on the day of the bronchoscopy. Therefore we had to postpone the bronchoscopy initially. She did have a CT scan of the chest demonstrating a pneumonia on the right lower lobe consistent with an obstruction. Therefore once her cardiac status was stable she did undergo a bronchoscopy and a foreign body was removed in this case it was a corn popcorn kernel. The patient is feeling a lot better. She has use still using the Wixela twice a day. Will see about weaning her office since her breathing is better. She does complaint of some burning sensation in the substernal is area when she is exercising. I encourage her to not exercises hard and we did reach out to Cardiology in order for her to have a stress test. She also has atrial flutter and will likely need cardioversion at some point. The patient does have also some evidence of pulmonary hypertension. Explained to his multifactorial. The patient does have daytime drowsiness. Her Surprise score is 11/24. She may have a component of untreated sleep apnea that is likely contributing to the pulmonary hypertension. In addition to that the stress of having the pneumonia the obstruction from the aspiration and also the a flutter are also contributing. Hopefully these entities will subside and she can feel better. In the meantime will give her 3 days of Lasix that she can start once she is ready to try to remove some fluid off her body. COUNT INCLUDES THE [facility] Medical History (Updated 11/25/24 @ 18:49 by Yousuf Thorpe MD) Atrial flutter Pulmonary hypertension YOSHI (obstructive sleep apnea) Chronic restrictive lung disease Asthma Pulmonary nodules Social History Household Members: Spouse and Children Housing: House Do you presently have visiting nurse or other home services: No Patient Tobacco Use Status: Never used Tobacco service: No Review of Systems Const Reports daytime sleepiness, Reports fatigue and Denies fever(s) Eyes Reports no additional complaints ENT Reports nasal congestion Card Reports chest pain, Reports leg edema and Reports dyspnea on exertion Resp Reports chest congestion, Reports cough, Reports dyspnea on exertion and Reports wheezing GI Reports no additional complaints Musc Reports no additional complaints Skin/Breast Denies rash Endo Reports fatigue Devin/Lymph Reports no additional complaints Aller/Immun Reports wheezing Physical Exam Vital Signs: Last Vital Signs Pulse 85 11/25/24 10:17 BP 140/72 H 11/25/24 10:17 Pulse Ox 97 11/25/24 10:17 Oxygen Delivery Method Room Air 11/25/24 10:17 BMI result Body Mass Index 43.5 Last Vital Signs Temp 98.0 F 10/31/24 08:00 Pulse 80 10/31/24 08:00 Resp 18 10/31/24 08:00 BP 119/67 10/31/24 08:00 Pulse Ox 95 10/31/24 08:00 O2 Del Method Room Air 10/31/24 08:00 BMI result Body Mass Index 43.4 Const General: comfortable HEENT Head: Yes normocephalic Neck Neck: Yes supple Chest Chest palpation & inspection: normal inspection of the chest Resp Effort & Inspection: normal respiratory effort Auscultation: clear to auscultation bilaterally, no crackles, no rales and no rhonchi Cardio Heart sounds: S1 normal heart sound present and S2 normal heart sound present GI Palpation (GI): Soft to palpation Skin General skin exam: no rashes or lesions noted Extrem General: No clubbing, No cyanosis and Yes edema Assessment & Plan Assessment & Plan (1) Asthma: Code(s): J45.909 - Unspecified asthma, uncomplicated Category: Medical Qualifiers: Asthma severity: moderate Asthma persistence: persistent Asthma complication type: with acute exacerbation Qualified Code(s): J45.41 - Moderate persistent asthma with (acute) exacerbation (2) Chronic restrictive lung disease: Comment: multifactorial Code(s): J98.4 - Other disorders of lung Category: Medical (3) Exertional chest pain: Code(s): R07.9 - Chest pain, unspecified Category: Medical (4) YOSHI (obstructive sleep apnea): Code(s): G47.33 - Obstructive sleep apnea (adult) (pediatric) Category: Medical (5) Pulmonary hypertension: Code(s): I27.20 - Pulmonary hypertension, unspecified Category: Medical (6) Pulmonary nodules: Code(s): R91.8 - Other nonspecific abnormal finding of lung field Category: Medical (7) Aspiration into airway: Comment: s/p removal via bronchoscopy Code(s): T17.908A - Unspecified foreign body in respiratory tract, part unspecified causing other injury, initial encounter Category: Medical Qualifiers: Encounter type: initial encounter Qualified Code(s): T17.908A - Unspecified foreign body in respiratory tract, part unspecified causing other injury, initial encounter Plan wean off Wixela JOSELUIS as needed provided Aerobika to use 2-4 times aday Awaiting PSG F/U with cardiology re: stress test and cardioversion Lasix x 3 days, low Na diet F/U 3 months Medications: New furosemide (Lasix) 20 mg PO DAILY 7 tabs 0RF 7 days Coding Level of Care Code Est Pt Level 5 (39562) Diagnoses Moderate persistent asthma with acute exacerbation J45.41 Asthma severity: moderate Asthma persistence: persistent Asthma complication type: with acute exacerbation Chronic restrictive lung disease J98.4 Exertional chest pain R07.9 YOSHI (obstructive sleep apnea) G47.33 Pulmonary hypertension I27.20 Pulmonary nodules R91.8 Aspiration into airway, initial encounter T17.908A Encounter type: initial encounter Time Spent (min) 30
== END 2024-11-25 11:01 | disposition home or self-care (01) ==
PROVIDERS: PCP Family Medicine; Visit Provider Hospitalist
DX: J45.41 Moderate persistent asthma with (acute) exacerbation (principal); J98.4 Other disorders of lung; G47.33 Obstructive sleep apnea (adult) (pediatric); I27.20 Pulmonary hypertension, unspecified; R91.8 Other nonspecific abnormal finding of lung field; T17.908A Unspecified foreign body in respiratory tract, part unspecified causing other injury, initial encounter
CPT/HCPCS: 99214

== ENCOUNTER → 2024-11-25 10:01 | Outpatient (BNVA) | payer MEDICARE, OTHER, SELFPAY | PROVIDERS: PCP Family Medicine; Visit Provider Hospitalist | DX: J45.41 Moderate persistent asthma with (acute) exacerbation (principal); J98.4 Other disorders of lung; R07.9 Chest pain, unspecified; R91.8 Other nonspecific abnormal finding of lung field; G47.33 Obstructive sleep apnea (adult) (pediatric); I27.20 Pulmonary hypertension, unspecified; T17.908D Unspecified foreign body in respiratory tract, part unspecified causing other injury, subsequent encounter | CPT/HCPCS: 99212 ==

== ENCOUNTER → 2024-12-02 09:41 | Outpatient (REF) | payer MEDICARE, OTHER, SELFPAY ==
--- NOTE | 2024-12-02 09:44 | CA_ITS ---
Acquisition Time: 2024-12-02 09:59:49 Total Exercise Time: 00:02:00 Test Indications: CP, SOB Medications: SEE H&P Protocol: LEXISCAN Max HR: 129 BPM 85% of Pred: 151 BPM Max BP: 148/72 mmHG Max Work Load: 1.0 METS Pharmacologic stress test with Lexiscan, while pt kicks her legs in chair, with reports of palpitations with HR in 120s, no chest discomfort, without any arrythmias, with normotensive response to injection. Nondiagnostic EKG for ischemia. In recovery, pt treated with IVP Aminophylline 75 mg to reverse Lexiscan. HR returned to baseline. Nuclear images pending. Test reviewed with Dr. Irene. Referred By: Darren Garrett Electronically Signed By: Antonio Moran
== END ==
LOC: HO.CARD 09:41
PROVIDERS: PCP Family Medicine; Visit Provider Internal Medicine Cardiovascular Disease
DX: R07.9 Chest pain, unspecified (principal)
CPT/HCPCS: 93017; J0280; J2785

== ENCOUNTER → 2024-12-02 09:44 | Outpatient (BNV) | payer MEDICARE, OTHER, SELFPAY | PROVIDERS: PCP Family Medicine | DX: R00.2 Palpitations (principal); R07.9 Chest pain, unspecified | CPT/HCPCS: 78452; 93016; 93018 ==

== ENCOUNTER 2024-12-08 10:48 | Day surgery (SDC) | payer MEDICARE, OTHER, SELFPAY ==
--- NOTE | 2024-12-06 15:35 | HO.ANESPROP2 ---
Documented by User: Mare Chang NP 12/06/24 15:37 HPI - Anesthesia Eval Consult details Narrative: 69yo F for Cardioversion s/p bronch 10/2024 with GA-ETT 8.5 Eliquis [facility] Active Problems Active Problems: All Active Problems Pulmonary hypertension (Acute) YOSHI (obstructive sleep apnea) (Acute) Atrial flutter (Acute) Exertional chest pain (Acute) Past Medical History Medical History Atrial flutter Pulmonary hypertension YOSHI (obstructive sleep apnea) Chronic restrictive lung disease Asthma Pulmonary nodules Family History Family history of problems with anesthesia: No Surgical History History of Problems with Anesthesia: No Social History Social History Household Members: Spouse and Children Housing: House Do you presently have visiting nurse or other home services: No Patient Tobacco Use Status: Never used Tobacco Use of substances other than those prescribed or required for medical reasons: No Have you been hit, kicked, punched, or otherwise hurt by someone within the past year? If so, by whom?: No Are you DNR?: No Advance Directives: No Advance Directives Information Provided: Yes Recently lost weight without trying: No service: No Meds Allergies Allergy/AdvReac Type Severity Reaction Status Date / Time amoxicillin Allergy hives Verified 11/25/24 10:20 ciprofloxacin Allergy Hives Verified 11/25/24 10:20 latex Allergy vaginal Verified 11/25/24 10:20 itching Home Medications ?Medication ?Instructions ?Recorded ?Confirmed ?Last Taken ?Type cholecalciferol (vitamin D3) 50 50 mcg PO BID 10/19/24 10/28/24 10/27/24 History mcg (2,000 unit) capsule levothyroxine 75 mcg capsule 75 mcg PO DAILY@0600 10/19/24 10/28/24 10/27/24 History losartan 50 mg tablet 50 mg PO DAILY 10/19/24 10/28/24 12/08/24 History omeprazole 40 mg capsule,delayed 40 mg PO DAILY@0630 10/19/24 10/28/24 12/08/24 History release pravastatin 10 mg tablet 10 mg PO BEDTIME 10/19/24 10/28/24 10/27/24 History codeine 10 mg-guaifenesin 100 mg/5 5 ml PO Q6H PRN cough 10/28/24 10/28/24 10/27/24 History mL oral liquid fluticasone propionate 50 1 spray intranasal DAILY 10/28/24 10/28/24 10/27/24 History mcg/actuation nasal spray,suspension potassium citrate 10 mEq (1,080 20 meq PO TID 10/28/24 10/28/24 12/08/24 History mg) tablet,extended release Exam Pertinent Lab Results Pertinent Lab Results: Laboratory Tests 10/31/24 06:13 WBC 7.9 Hgb 14.2 Hct 42.5 Plt Count 349 Sodium 138 Potassium 3.9 D Chloride 103 Carbon Dioxide 24 BUN 26 H Creatinine 1.48 H Narrative Narrative: 12/03/24 (nuc images still pending) Pharmacologic stress test with Lexiscan, while pt kicks her legs in chair, with reports of palpitations with HR in 120s, no chest discomfort, without any arrythmias, with normotensive response to injection. Nondiagnostic EKG for ischemia. In recovery, pt treated with IVP Aminophylline 75 mg to reverse Lexiscan. HR returned to baseline. Nuclear images pending. Test reviewed with Dr. Irene. Assessment and Plan Assessment Anesthesia Assessment: Chart Reviewed Final Anesthetic Review Family History of Problems with Anesthesia: No History of Problems with Anesthesia: No Documented by User: Chichi Yang MD 12/08/24 11:38 PMFSH Past Medical History Medical History Atrial flutter Pulmonary hypertension YOSHI (obstructive sleep apnea) Chronic restrictive lung disease Asthma Pulmonary nodules Social History Social History Household Members: Spouse and Children Housing: House Do you presently have visiting nurse or other home services: No Patient Tobacco Use Status: Never used Tobacco Use of substances other than those prescribed or required for medical reasons: No Have you been hit, kicked, punched, or otherwise hurt by someone within the past year? If so, by whom?: No Are you DNR?: No Advance Directives: No Advance Directives Information Provided: Yes Recently lost weight without trying: No service: No Meds Allergies Allergy/AdvReac Type Severity Reaction Status Date / Time amoxicillin Allergy hives Verified 11/25/24 10:20 ciprofloxacin Allergy Hives Verified 11/25/24 10:20 latex Allergy vaginal Verified 11/25/24 10:20 itching Home Medications ?Medication ?Instructions ?Recorded ?Confirmed ?Last Taken ?Type cholecalciferol (vitamin D3) 50 50 mcg PO BID 10/19/24 10/28/24 10/27/24 History mcg (2,000 unit) capsule levothyroxine 75 mcg capsule 75 mcg PO DAILY@0600 10/19/24 10/28/24 10/27/24 History losartan 50 mg tablet 50 mg PO DAILY 10/19/24 10/28/24 12/08/24 History omeprazole 40 mg capsule,delayed 40 mg PO DAILY@0630 10/19/24 10/28/24 12/08/24 History release pravastatin 10 mg tablet 10 mg PO BEDTIME 10/19/24 10/28/24 10/27/24 History codeine 10 mg-guaifenesin 100 mg/5 5 ml PO Q6H PRN cough 10/28/24 10/28/24 10/27/24 History mL oral liquid fluticasone propionate 50 1 spray intranasal DAILY 10/28/24 10/28/24 10/27/24 History mcg/actuation nasal spray,suspension potassium citrate 10 mEq (1,080 20 meq PO TID 10/28/24 10/28/24 12/08/24 History mg) tablet,extended release Exam Airway Mallampati Class: III TM Dist: >3cm Heart: AF Lungs: cta Assessment and Plan Assessment Anesthesia Assessment: Anesthesia Plan Discussed Final Anesthetic Review NPO: Yes ASA Class: III Final Preanesthetic Review: No Changes in Pt Med Stat, Meds/Allgs Chart Reviewed and Consent Obtained/Reviewed Patient Risk: Intermediate Procedure Risk: Low Anesthetic Plan Anesthetic Plan: MAC: Disposition: Standard PACU
[2024-12-08 11:00] VITALS: BP 174/71; PULSE 79; RESP 16; TEMP 36.4; O2SAT 98; BMI 41.2
--- NOTE | 2024-12-08 11:07 | P.HPSUR_ITS ---
Pre-Procedural Eval Section A - 24 Hr Update-Section A only Date of Service: 12/08/24 Section B - Complete if H&P > 30 days Chief Complaint: Unspecified atrial flutter Details of Present Illness: Patient admitted recently with aspiration syndrome subsequently noted to have new onset atrial flutter with right heart failure syndrome. Subsequently complain of chest pressure and underwent a myocardial perfusion imaging which shows ischemia. Remains in atrial flutter Relevant Family History (Specify if Yes): No Relevant Social History: None Present Medications: see Short Stay Collaborative assessment Medical History: Significant History Allergies: Allergies Allergy/AdvReac Type Severity Reaction Status Date / Time amoxicillin Allergy hives Verified 11/25/24 10:20 ciprofloxacin Allergy Hives Verified 11/25/24 10:20 latex Allergy vaginal Verified 11/25/24 10:20 itching Review of Systems Sugical H&P ROS: Negative: Constitution, Respiratory, Neurological, Psychiatric, Hem-Onc, Allergic/Immunologic and Gastrointestinal and Yes, Specify: Car diovascular (Atrial flutter and chest pain) Exam Surgical H&P Exam: Normal: HEENT, Normal: Extremities, Normal: Abdomen, Normal: Skin and Normal: Neurological and Significant Findings: Heart (Irregular heart rate) Plan Diagnosis/Plan: Unchanged I have reviewed the history and physical and performed a pertinent physical examination on my patient. No changes have occurred unless specified. Time Spent With Patient Time: Total time managing care of this patient today ____ minutes.
[2024-12-08] MEDS: Lactated Ringers 1,000 ML 100 ML IVCONT (11:35)
--- NOTE | 2024-12-08 11:56 | ECG_ITS ---
Test Reason : pacu Blood Pressure : */* mmHG Vent. Rate : 60 BPM Atrial Rate : 60 BPM P-R Int : 180 ms QRS Dur : 86 ms QT Int : 396 ms P-R-T Axes : 63 24 30 degrees QTcB Int : 396 ms Normal sinus rhythm Normal ECG When compared with ECG of 28-Oct-2024 15:48, Sinus rhythm has replaced Atrial flutter Vent. rate has decreased by 66 bpm Criteria for Anterior infarct are no longer Present ST no longer depressed in Inferior leads ST no longer depressed in Lateral leads Nonspecific T wave abnormality, improved in Inferior leads T wave amplitude has increased in Lateral leads Referred By: Darren Garrett Electronically Signed By: DARREN GARRETT MD
--- NOTE | 2024-12-08 11:56 | HO.CARDIVERS ---
Cardioversion Procedure Note Cardioversion Date of Procedure: 12/08/24 Ordering Provider: Aysha Garrett Performing Provider: Aysha Garrett Indication for Procedure: Persistent new onset atrial flutter Pre-Op Diagnosis: Same Post-Op Diagnosis: NSR Performed with Transesophageal Echo: No History: See my consult Consent: Verbal and Written consent was obtained from the patient before starting and confirming OAC use. The patient was made aware of the risk of synchonized cardioversion including benefits and laternatives Procedure: After consent obtained, cardioversion pads were attached in AP configuration and the patient was sedated by the anesthesia team. Once adequate sedation achieved, patient was delivered 200 J of biphasic synchronized energy iin AP configuration. Complications: None Impression: Successful conversion to NSR Recommendations: 1. 12 lead EKG 2. Continue current meds and OAC 3. Follow up in office after CTA
[2024-12-08 11:57] VITALS: BP 141/62; PULSE 61; RESP 16; TEMP 36.4; O2SAT 94
[2024-12-08 12:05] VITALS: BP 123/54; PULSE 63; RESP 14; O2SAT 96
--- OUTSIDE RECORDS SUMMARY | 2024-12-08 12:08 | XMS_ITS | Encounter Summary ---
Author Organization Formerly [facility] Address [address] [place] [address] Care Team Providers Care Motion Picture Commentator Name Role Phone Nii Yates MD Primary Care Provider [phone] Reason for Visit * Reason Comments OT Treatment Encounter Details Date Type Department Care Team ([facility] st Contact Info) Description 11/18/2024 11:00 AM EST [place] [address] Mariela Meo, OT [address] [place] [address] 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); Stiffness of left hand joint Social History Tobacco Use Types Packs/Day Years Used Date Smoking Tobacco: Never Smokeless Tobacco: Never Alcohol Use Standard Drinks/Week Comments Not Currently 0 (1 standard drink = 0.6 oz pur e alcohol) AUDIT-C Answer Date Recorded Q1: How often do you have a drink containing alcohol? Never 03/16/2024 Q2: How many drinks containi ng alcohol do you have on a typical day when you are drinking? Patient does not drink Q3: How often do you have si x or more drinks on one occasion? Never 03/16/2024 Sex and Gender Information Value Date Recorded Sex Assigned at Female 02/23/2024 1:19 PM EDT Gender Identity Female 02/23/2024 1:19 PM EDT Sexual Orientation Heterosexual (straight) 02/22 1:19 PM EDT documented as of this encounter Discharge Summaries * Mariela Moe OT - 11/18/2024 11:00 AM EST Treating Therapist: Mariela Moe OT Referring Provider: Nii Yates MD Occupational Therapy Discharge Summary Diagnoses ICD-10-CM 1. 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 Stiffness of left hand joint M25.642 Evaluation and Treatment History: Attended visits: 3 Discharge date: November 18, 2024 Discharge Details: Objective Measurements: Pain - Yenny November 18, 2024 Row Name Treatment from 11/18/2024 in [facility] Primary Pain Do you have pain? yes At Best Pain Rating 0/10 At Worst Pain Rating 5/10 Quality sharp Progression improved Hand/Wrist Musculoskeletal Exam Inspection Right Erythema: none Ecchymosis: none Incision: intact and well-healed Incision comment: good scar mobility Range of Motion Right Wrist Active Extension: 60 Active Flexion: 50 Active Radial Deviation: 30 Active Ulnar Deviation: 20 Range of motion additional comments: Full active composite, intrinsic +/- fist Full active opposition using Kapandji scale Active P ABD = 45 Active R ABD = 55 Strength Strength additional comments: Pantomimist = 32.8 ( wood getter strength norms = 35 - 74 ) Neurovascular Right Right neurovascular exam is normal. General Neurological: oriented x3 Skin: intact Lymphadenopathy: none Assessment Details: Daily Assessment and Plan - Yenny November 18, 2024 Row Name Treatment from 11/18/2024 in [facility] Assessment/ Plan Assessment see obective measures Plan trial HEP and d/c after 30 days. Goals: Goals Addressed This Visit's Progress COMPLETED: OT LTG 1 On track Full AROM thumb and wrist to allow ability to use hand for all ADL tasks. documented in this encounter Miscellaneous Notes * Daily/Treatment Note - Mariela Moe OT - 11/18/2024 11:00 AM EST Images from the original note were not included. Occupational Therapy Daily Note Referring Provider: NII YATES Diagnoses ICD-10-CM 1. 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 Stiffness of left hand joint M25.642 Subjective: Daily Note Subjective - Yenny November 18, 2024 Row Name Treatment from 11/18/2024 in [facility] Subjective Subjective doing well. will trial a HEP. Treatment Performed: Interventions - FriNovember 18, 2024 Row Name Treatment from 11/18/2024 in [facility] Therapeutic activities 1 educated on current precautions, reasonable expectations for progression of activity and exercises as well as principles of soft tissue healing in realtion to pain and motion. 3 educated on reasonable progressionb of functional activity Therapeutic Procedures Justification to increase range of motion, strength and endurance 1 re assessment completed. 2 Review of home recommendations Assessment/ Plan: Daily Assessment and Plan - FriNovember 18, 2024 Row Name Treatment from 11/18/2024 in [facility] Assessment/ Plan Assessment see obective measures Plan trial HEP and d/c after 30 days. Objective Measurements: Pain - FriNovember 18, 2024 Row Name Treatment from 11/18/2024 in [facility] Primary Pain Do you have pain? yes At Best Pain Rating 0/10 At Worst Pain Rating 5/10 Quality sharp Progression improved Hand/Wrist Musculoskeletal Exam Goals Addressed This Visit's Progress COMPLETED: OT LTG 1 On track Full AROM thumb and wrist to allow ability to use hand for all ADL tasks. OT Charges - FriNovember 18, 2024 Row Name Treatment from 11/18/2024 in [facility] Treatments-Timed Charges Therapeutic Activities (units)- 40408 1 Therapeutic Activity (minutes) 12 $ Therapeutic Procedures (units)- 75540 1 Therapeutic Procedure (minutes) 16 Therapy Totals TOTAL Number of TIMED UNITS 2 TOTAL Number of TIMED MINUTES 28 TOTAL Number of ALL UNITS Performed this Session 2 TOTAL Number of ALL MINUTES with the Patient This Session 28 documented in this encounter Plan of Treatment Upcoming Encounters Date Type Department Care Team (Late st Contact Info) Description 12/22/2024 10:00 AM EST Office Visit Orthopedic [address] [place] [address] Gurjit Steele MD [address] [place] [address] [address] [place] [address] 06/29/2025 10:30 AM EDT Office Visit [facility] Urology [place] [address] [place] [address] Josef Loya MD [address] [place] [address] documented as of this encounter Visit Diagnoses Diagnosis Finger joint replacement of left hand- Primary Stiffness of left hand joint documented in this encounter Care Teams Motion Picture Commentator Relationship Specialty Start Date End Date Nii Yates MD [address] [address] PCP - General Family Medicine 05/05/23 documented as of this encounter
--- OUTSIDE RECORDS SUMMARY | 2024-12-08 12:08 | XMS_ITS | Clinical Summary ---
Author Organization [facility] Address [address] [place] [address] Care Team Providers Care Multimedia Journalist Name Role Phone Sugey Rice MD Primary Care Provider [phone] Allergies Active Allergy Reactions Criticality Noted Date Comments Amoxicillin Itching Low 05/05/2023 Ciprofloxacin Hives Medium 05/05/2023 Latex Other (See Comments) 09/06/2021 Medications Medication Sig Dispensed Refills Start Date End Date Status amLODIPine (NORVASC) 5 MG tablet Take 1 tablet (5 mg total) by mouth nightly. 12/16/2023 Active Cholecalciferol (Vitamin D) 50 MCG (2000 UT) tablet nightly. Active levothyroxine (SYNTHROID, LEVOTHROID) 75 MCG tablet nightly. 02/01/2024 Active lisinopril (PRINIVIL,ZeSTRIL) 10 MG tablet Take 1 tablet (10 mg total) by mouth nightly. 01/06/2024 Active OMEprazole (PriLOSEC) 40 MG capsule every morning. Active Potassium Citrate ER 15 MEQ (1620 MG) Tab CR 60 mEq 2 times a day. Active ivermectin (SOOLANTRA) 1 % cream as needed. 01/02/2024 Active diclofenac (VOLTAREN) 1 % gel as needed. Active Acetaminophen (TYLENOL PO) Take by mouth as needed. Active Probiotic Product (PROBIOTIC PO) Take by mouth nightly. Active oxyCODONE (ROXICODONE) 5 MG immediate release tabletIndications:Jessee anderson Take 1 tablet (5 mg total) by mouth 4 times daily (every 6 hours) as needed for severe pain. Max Daily Amount: 20 mg 6 tablet 03/29/2024 Active phenazopyridine (PYRIDIUM) 200 MG tabletIndications:Jessee anderson Take 1 tablet (200 mg total) by mouth 3 (three) times a day in the morning, mid-day and early evening. 10 tablet 03/29/2024 Active tamsulosin (FLOMAX) 0.4 MG capsuleIndications:Christian anderson Take 1 capsule (0.4 mg total) by mouth daily. 14 capsule 03/29/2024 Active docusate sodium (COLACE) 100 MG capsuleIndications:Christian anderson Take 1 capsule (100 mg total) by mouth 2 (two) times a day. 20 capsule 03/29/2024 Active oxyCODONE-acetaminop hen (PERCOCET) 5-325 mg per tabletIndications:CM C arthritis Take 1 tablet by mouth Every 4 (four) to 6 (six) hours as needed for severe pain. Max Daily Amount: 6 tablets 20 tablet 09/22/2024 Active Hospital, Clinic, or Other Facility Administered Medication Ordered Dose Route Frequency Start Date End Date Status betamethasone acetate-betamethasone sodium phosphate (CELESTONE) injection 3 mgIndications:CMC arthritis 3 mg IX Once 06/21/2024 Active Active Problems No known active problems Encounters Date Type Department Care Team Description 11/18/2024 11:00 AM [place] [address] Mariela Moe OT 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); Stiffness of left hand joint 10/27/2024 11:30 AM EST Treatment [facility] [place] [id number] Mariela Moe OT 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); Stiffness of left hand joint 10/27/2024 10:45 AM EST [place] [address] Gurjit Steele MD 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, unspecified osteoarthritis type (Primary Dx) 10/06/2024 11:30 AM EST Evaluation [facility] [place] [id number] BontempoGurjit MD Roth, Ann-Marie, OT 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); Stiffness of left hand joint 10/06/2024 10:35 AM EST Ancillary Procedure [facility] [place] [id number] Jessica Louise PA 10/06/2024 10:30 AM EST Office [place] [facility] [address] Jessica Louise PA 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, unspecified osteoarthritis type (Primary Dx) 09/29/2024 10:30 AM EST Clinical Support [facility] [address] [address] Jessica Louise PA CMC arthritis (Primary Dx) 09/28/2024 2:30 PM EST Clinical Support [facility] [address] [phone] Gurjit Steele MD Pain (Primary Dx) 09/23/2024 Scanned Document [facility] [address] [phone] Gurjit Steele MD 09/22/2024 Orders Only [facility] of [address] [address] Gurjit Steele MD CMC arthritis (Primary Dx) 09/09/2024 Orders Only [facility] of [address] [phone] Gurjit Steele MD CMC arthritis (Primary Dx); Pain of right thumb from Last 3 Months Social History Tobacco Use Types Packs/Day Years [...] Orientation Heterosexual (straight) 02/22 1:19 PM EDT Last Filed Vital Signs Vital Sign Reading Time Taken Comments Blood Pressure 141/64 03/29/2024 1:30 PM EDT Pulse 64 03/29/2024 1:30 PM EDT Temperature 36.6 ??C (97.8 ??F) 03/29/2024 1:30 PM ED T Respiratory Rate 18 03/29/2024 1:30 PM EDT Oxygen Saturation 93% 03/29/2024 1:30 PM EDT Inhaled Oxygen Concentration - - Weight 118 kg (260 lb) 06/30/2024 10:39 AM EDT P ER PT Height 167.6 cm (5' 6 ) 06/30/2024 10:39 AM EDT PER PT Body Mass Index 41.97 06/30/2024 10:39 AM EDT Plan of Treatment Upcoming Encounters Date Type Department Care Team (Late st Contact Info) Description 12/22/2024 10:00 AM EST [facility] Visit [facility] [address] [address] Gurjit Steele MD [address] [address] 06/29/2025 10:30 AM EDT Office Visit [facility] [place] [address] [place] [address] Josef Loya MD [address] [place] [address] Health Maintenance Due Date Last Done Comments Hepatitis C Virus Screening 1955 DTaP/Tdap/Td Vaccines (1 - Tdap) 1974 Mammogram 1995 Colonoscopy 2000 Pneumococcal Vaccines 50+ (1 of 1 - PCV) 2005 Zoster (Shingles) Vaccine (1 of 2) 2005 RSV Vaccine 60 years and older and Patients (1 - Risk 60-74 years 1-dose series) 2015 DXA Bone Density (Females,Ages 65 and older) 2020 Influenza Vaccine Completed 08/03/2024, , 07/20/2023, Additional history exists COVID-19 Vaccine Completed 08/11/2024, , 08/03/2022, Additional history exists Hepatitis B Vaccines Aged Out No long er eligible based on patient's age to complete this topic Medical Devices Explanted Type [employer] [facility] Device Identifier Shelf Expiration Date Model / Serial / Lot [id number] Stent Ureteral 6fr 26cm Taper Tip Bldr Benjie Lp Contour Hdr+ - [id number] Implanted:Qty : 1 on 03/29/2024 by Josef Loya MD at [facility] Explanted:Qty : 1 on 04/07/2024 by Josef Loya MD Stent Right: Ureter [employer] [id number] 11/30/2026 [id number] / / [id number] Procedures Procedure Name Priority Date/Time Associated Diagnosis Comments XR FINGER (1ST) 2+ VIEWS-RIGHT Routine 10/06/2024 10:34 AM EST 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, unspecified osteoarthritis type from Last 3 Months Results * XR Finger (1st) 2+ views-Right (10/06/2024 10:34 AM EST) Narrative OAH - 10/06/2024 10:34 AM EST This exam was performed in office at [facility] and images reviewed by orthopedic provider. ??Any findings are documented within ambulatory encounter note on date of service. Jessica [facility] ORDERABLES OA from Last 3 Months Care Teams Multimedia Journalist Relationship Specialty Start Date End Date Sugey Rice MD 3640 [facility] [address] [place] [address] PCP - General Family Medicine 05/05/23
--- OUTSIDE RECORDS SUMMARY | 2024-12-08 12:08 | XMS_ITS | Encounter Summary ---
Author Organization [facility] Address [address] [place] [address] Care Team Providers Care Spring Coiler Hand Name Role Phone Sugey Rice MD Primary Care Provider [phone] Reason for Visit * Reason Comments Appointment Encounter Details Date Type Department Care Team (Late Contact Info) Description 02/05/[address] [address] Josef Loya MD [address] [place] [address] Appointment Social History Tobacco Use Types Packs/Day Years Used Date Smoking Tobacco: Never Assessed Sex and Gender Information Value Date Recorded Sex Assigned at Female 02/23/2024 1:19 PM EDT Gender Identity Female 02/23/2024 1:19 PM EDT Sexual Orientation Heterosexual (straight) 02/22 1:19 PM EDT documented as of this encounter Plan of Treatment Upcoming Encounters Date Type Department Care Team (Late Contact Info) Description 12/22/2024 10:00 AM EST [facility] Visit [facility] [address] [place] [address] Gurjit Steele MD [address] [address] 06/29/2025 10:30 AM EDT Office Visit [facility]rology [place] [address] [place] [phone] Josef Loya MD [address] [place] [address] documented as of this encounter Visit Diagnoses Not on filedocumented in this encounter Care Teams Spring Coiler Hand Relationship Specialty Start Date End Date Sugey Rice MD [address] [address] PCP - General Family Medicine 05/05/23 documented as of this encounter
--- OUTSIDE RECORDS SUMMARY | 2024-12-08 12:08 | XMS_ITS | Clinical Summary ---
Author Organization [address] Address [address] [place] [address] Phone Care Team Providers Care Litigation Legal Secretary Name Role Phone Sugey Rice MD Primary Care Provider [phone] Medications Medication Sig Dispensed Refills Start Date End Date Status omeprazole (PriLOSEC) 40 mg capsuleIndications:G ERD (gastroesophageal reflux disease) TAKE 1 CAPSULE BY MOUTH EVERY DAY 90 capsule 12/07/2024 Active Surgical History Surgery Date Site/Laterality Comments COLONOSCOPY W/ POLYPECTOMY 06/17/2020 - 07/17/2020 TA x 1 SECTION x 3 VARICOSE VEIN SURGERY COLONOSCOPY 07/07/2015 Dr. Andrews - key Medical History Medical History Date Comments GERD (gastroesophageal reflux disease) Irritable bowel syndrome with diarrhea Nephrolithiasis Hypothyroid Hyperlipidemia HTN (hypertension) Rosacea Family History Medical History Relation Name Comments Colon cancer Mother Relation Name Status Comments Mother Social History Tobacco Use Types Packs/Day Years Used Date Smoking Tobacco: Never Smokeless Tobacco: Never Tobacco Cessation:Counseling Given: Not Answered Alcohol Use Standard Drinks/Week Comments Never 0 (1 standard drink = 0.6 oz pur e alcohol) Sex and Gender Information Value Date Recorded Sex Assigned at Not on file Gender Identity Not on file Sexual Orientation Not on file Job Start Date Occupation Industry Not on file Not on file Not on file Obstetrics History Plan of Treatment Upcoming Encounters Date Type Department Care Team (Late st Contact Info) Description 12/10/2024 9:00 AM EST Office Visit Gastroenterology - [address] [address] Nano Brown MD [address] [place] [address] Health Maintenance Due Date Last Done Comments Breast Cancer Screening 1955 DTaP,Tdap,and Td Vaccines (1 - Tdap) 1974 Zoster Vaccines (1 of 2) 2005 Pneumococcal Vaccine: 65+ Ye ars (1 of 1 - PCV) 2020 COVID-19 Vaccine (1 - 2023-2 5 season) 2024 Influenza Vaccine (#1) 2024 Colorectal Cancer Screening: Colonoscopy 10/08/2024 Depression Screening 10/08/2024 Falls Risk Assessment 10/08/2024 Hepatitis C Screening 10/08/2024 Medicare Annual Wellness Visit 10/08/2024 Osteoporosis Screening (Bone Density Screening) 10/08/2024 Social Influencers of Health Screening 10/08/2024 RSV Immunization Patients 60 + Years Old (1 - 1-dose 75+ series) 2030 HIB Vaccines Aged Out No longer eligi ble based on patient's age to complete this topic HPV Vaccines Aged Out No longer eligi ble based on patient's age to complete this topic Hepatitis A Vaccines Aged Out No long er eligible based on patient's age to complete this topic Hepatitis B Vaccines Aged Out No long er eligible based on patient's age to complete this topic IPV Vaccines Aged Out No longer eligi ble based on patient's age to complete this topic MMR Vaccines Aged Out No longer eligi ble based on patient's age to complete this topic Meningococcal ACWY Vaccine Aged Out N o longer eligible based on patient's age to complete this topic RSV Immunization Patients Un adeline 20 months Aged Out No longer eligible b ased on patient's age to complete this topic Varicella Vaccines Aged Out No longer eligible based on patient's age to complete this topic Care Teams Litigation Legal Secretary Relationship Specialty [place] [address] [place] [phone] PCP - General Family Medicine 10/07/24
--- OUTSIDE RECORDS SUMMARY | 2024-12-08 12:08 | XMS_ITS | Encounter Summary ---
Author Organization [facility] Address [address] [place] [address] Care Team Providers Care Risk And Insurance Consultant Name Role Phone Sugey Rice MD Primary Care Provider [phone] Encounter Details Date Type Department Care Team (Late Contact Info) Description 09/23/2024 Scanned Document [facility] [address] [phone] Gurjit Steele MD [address] [place] [address] Social History Tobacco Use Types Packs/Day Years [...] 10:00 AM EST [facility] [address] [place] [address] Gurjit Steele MD 31 [facility] [address] [place] [address] 06/29/2025 10:30 AM EDT Office Visit [facility]rology [place] [address] [place] [address] Josef Loya MD [address] [place] [address] documented as of this encounter Visit Diagnoses Not on filedocumented in this encounter Care Teams Risk And Insurance Consultant Relationship Specialty Start Date End Date Sugey Rice MD [address] [place] [address] [address] [place] [address] PCP - General Family Medicine 05/05/23 documented as of this encounter
--- OUTSIDE RECORDS SUMMARY | 2024-12-08 12:08 | XMS_ITS | Encounter Summary ---
Author Organization [facility] Address [address] [place] [address] Care Team Providers Care Continuous Dryout Operator Name Role Phone Sugey Rice MD Primary Care Provider [phone] Encounter Details Date Type Department Care Team (Late st Contact Info) Description 05/29/2023 Scanned Document Orthopedic [address] [phone] Leif Reed MD [address] [place] [address] Social History Tobacco Use Types Packs/Day Years [...] 10:00 AM EST [facility] [address] [address] Gurjit Steele MD [address] [place] [address] 06/29/2025 10:30 AM EDT Office Visit [facility] [place] [phone] Josef Loya MD [address] [place] [address] documented as of this encounter Visit Diagnoses Not on filedocumented in this encounter Care Teams Continuous Dryout Operator Relationship Specialty Start Date End Date Sugey Rice MD [address] [address] PCP - General Family Medicine 05/05/23 documented as of this encounter
--- OUTSIDE RECORDS SUMMARY | 2024-12-08 12:09 | XMS_ITS | Encounter Summary ---
Author Organization [facility], Address [address] [place] [address] Phone Care Team Providers Care Commonwealth Attorney Name Role Phone Sugey Rice MD Primary Care Provider [phone] Encounter Details Date Type Department Care Team (Late st Contact Info) Description 03/19/2024 Documentation Only [facility], [address] [place] [phone] [place], [place] [address] [place] [address] Social History Tobacco Use Types Packs/Day Years Used Date Smoking Tobacco: Never Comments Unknown Sex and Gender Information Value Date Recorded Sex Assigned at Not on file Legal Sex Female 3:19 PM EDT Gender Identity Not on file Sexual Orientation Not on file documented as of this encounter Plan of Treatment Upcoming Encounters Date Type Department Care Team (Late st Contact Info) Description 12/10/2024 2:00 PM EST Office [facility] [address] [place] [address] Leonardo Stovall DO [address] [facility] [place] [address] documented as of this encounter Visit Diagnoses Not on filedocumented in this encounter Care Teams Commonwealth Attorney Relationship Specialty Start Date End Date Sugey Rice MD [address] [phone] PCP - General Family Medicine 09/04/21 documented as of this encounter
--- OUTSIDE RECORDS SUMMARY | 2024-12-08 12:09 | XMS_ITS | Clinical Summary ---
Author Organization [facility] Address [address] [place] [address] Care Team Providers Care Supercharger Repair Supervisor Name Role Phone Pcp, No MD Primary Care Provider Unavailabl e Allergies Active Allergy Reactions Criticality Noted Date Comments Amoxicillin Other (see comments) 09/06/2021 Ciprofloxacin Hives,Other (see comments) 2020 Latex Other (see comments) 09/06/2021 Watermelon 07/23/2022 Medications amLODIPine (NORVASC) 5 mg tablet amlodipine 5 mg tablet 1 Active diclofenac sodium (VOLTAREN) 1 % gel APPLY TWO GRAMS TO HANDS AND FEET UP TO 4 TIMES A DAY NEEDED 2 Active ivermectin 1 % cream APPLY ONCE DAILY TO AFFECTED AREA FOR ROSACEA 2 Active levothyroxine (SYNTHROID) 75 mcg tablet Take 75 mcg by mouth. 2 Active omeprazole (PriLOSEC) 40 mg capsule Take by mouth. 2 Active cartilage-colla aow-bip-rxezap 40-5-3.3 mg tablet daily. Active lisinopriL (PRINIVIL) 10 mg tablet 10 mg in the morning. 3 Active Active Problems No known active problems Social History Tobacco Use Types Packs/Day Years Used Date Smoking Tobacco: Never Assessed Comments Unknown Sex and Gender Information Value Date Recorded Sex Assigned at Not on file Legal Sex Female 5:33 AM EST Gender Identity Not on file Sexual Orientation Not on file Plan of Treatment Health Maintenance Due Date Last Done Comments Bone Density Screening 1955 Breast Cancer Screening 1955 CT Colonography 1955 Colonoscopy 1955 Colorectal Cancer Screening 1955 FIT-DNA (Cologuard) 1955 FIT 1955 FOBT 1955 Flex Sigmoidoscopy - 5y 1955 HIV Screening 1955 Medicare Annual Wellness (AWV) 1955 Hepatitis C Screening 1973 DTaP,Tdap,and Td Vaccines (2 - Td or Tdap) 04/17/2022 04/17/2012 COVID-19 Vaccine ( - 2023- season) 2024 08/03/2022, 06/01/2022, 08/10/2021, Additional history exists Influenza Vaccine (#1) 2024 , 07/28/2021, 07/28/2021, Additional history exists Zoster Vaccines Completed 05/08/2022, 01/19/2019 Pneumococcal Vaccine, 65+ Years Completed 07/17/2022, 07/19/2021, 07/19/2020 HPV Vaccines Aged Out No longer eligi ble based on patient's age to complete this topic Hepatitis A Vaccines Aged Out No long er eligible based on patient's age to complete this topic Meningococcal Vaccine Aged Out No heidi hi eligible based on patient's age to complete this topic Insurance [facility] MEDICARE PART A & B Care Teams Supercharger Repair Supervisor Relationship Specialty Start Date End Date Gloria Zuñiga MD [address] [place] [address] PCP - General Internal Medicine 07/02/22
--- OUTSIDE RECORDS SUMMARY | 2024-12-08 12:09 | XMS_ITS | Patient Health Record ---
Author Organization [facility] Address [address] [facility] [address] [place] [address] Care Team Providers Care Attorney General Name Role Phone Polocollette Liannelalo Primary Care Provider Unavailabl e Allergies Allergen (clinical drug ingredient) Drug/Non Drug Allergy documented on EMR Reaction Allergy Type Onset Date Status ciprofloxacin Cipro hives Drug Allergy Act anson amoxicillin Amoxicillin Unknown Drug Allergy Act anson Latex Latex Unknown Allergy Active Reason For Referral No Information Medications Medication SIG (Take, Route, Frequency, Duration) Notes Start Date End Date Status Betamethasone Diprop-Minoxidil 0.05-7 % as directed Externally Active Levothyroxine Sodium 75 MCG 1 tablet in the morning on an empty stomach Orally Once a day Active Lidocaine 5 % 1 application as nee ded to right foot for pain Externally Twice a day for 30 days Active amLODIPine Besy-Benazepril HCl 5-10 MG as directed Orally Active Melatonin 5 MG 1 tablet in the even ing Orally Once a day Active Move Free Ultra Joint Health 40-5-3.3 MG as directed Orally Act anson Omeprazole 40 MG 1 capsule 30 minutes before morning meal Orally Once a day Active Soolantra 1 % 1 application Line Assigner ally Once a day Active Vitamin D3 50 MCG (1999) 1 capsule Or ally Once a day Active Problems Problem Type SNOMED Code ICD Code Onset Dates Problem Status W/U Status Risk Notes Problem [id number] 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 Plan Of Treatment Pending Test Test Name Order Date X ray : Foot, right 3v 09/26/2021 Insurance Providers Payer Name Payer Address Payer Phone Subscriber Number Group Number Insured Name Patient Relationship to Insured Coverage Start Date Coverage End Date [employer] of [place] [address] [place] [id number] Danita Randle Self - patient is the insured [facility] [address] [place] [address] [id number] Danita Randle Self - patient is the insured Medical (General) History Medical History History ICD Code tubular adenoma Hypothyroidism vitamin D deficiency hyperlipidemia hypertension labile hypertension due to being in a cl inical environment gastroesophageal reflux disease (GERD) rosacea chronic fatigue syndrome serum creatinine raised body mass index 40+ Venous insufficiency both lower extremit ies Surgical History Surgery Date(Month/Year) caesarean section x3 anesth shoulder procedure ligate-strip short leg vein Colonoscopy Repair of umbilical hernia procedure on tounge Dxa bone density study Excision of mucous cyst of finger
--- OUTSIDE RECORDS SUMMARY | 2024-12-08 12:09 | XMS_ITS | Clinical Summary ---
Author Organization [facility], Address [address] [place] [address] [place] [phone] Phone Care Team Providers Care Area Field Manager Name Role Phone Sugey Rice MD Primary Care Provider [phone] Allergies Active Allergy Reactions Criticality Noted Date Comments Amoxicillin Other (see comments) 09/06/2021 Ciprofloxacin Hives,Other (see comments) 09/06/2021 Latex Other (see comments) 09/06/2021 Varicella-Zoster Immune Glob Swelling 05/13/2019 swelling and itching to arm for over a week after she had vaccine Zoster Vac Recomb Adjuvanted Itching,Other (see comments) 09/06/2021 Medications Cholecalciferol 50 MCG (1999) capsule 1 capsule at bed time Active levothyroxine (SYNTHROID, LEVOTHROID) 75 MCG tablet levothyroxine 75 mcg tablet TAKE 1 TABLET BY MOUTH EVERY DAY Active omeprazole (PriLOSEC) [address] capsule omeprazole 40 mg capsule,delayed release Active aspirin (Samra Aspirin EC Low Dose) 81 MG EC tablet Take 1 tablet by mouth 1 (one) time each day Active amLODIPine (NORVASC) 5 MG tabletIndicatio ns:Hypertensive heart and chronic kidney disease without heart failure, with stage 1 through stage 4 chronic kidney disease, or unspecified chronic kidney disease,Acute injury of kidney,Stage 3a chronic kidney disease (HCC) Take 2 tablets (10 mg total) by mouth 1 (one) time each day 180 tablet 4 4 Active losartan (Cozaar) 50 MG tablet Take 1 tablet (50 mg total) by mouth 1 (one) time each day 90 tablet 3 4 025 Active potassium citrate 10 MEQ (1080 MG) CR tablet Take 2 tablets (20 mEq total) by mouth in the morning and 2 tablets (20 mEq total) at noon and 2 tablets (20 mEq total) in the evening. Take with meals. Do not crush, chew, or split.. 540 tablet 3 4 025 Active Active Problems Problem Noted Date Diagnosed Date Uric acid renal calculus 04/28/2024 Acute nontraumatic kidney injury 09/07/2021 Hypertensive heart and chron ic kidney disease without heart failure, with stage 1 through stage 4 chronic kidney disease, or unspecified chronic kidney disease 09/07/2021 Stage 3a chronic kidney disease 09/07/2021 Essential hypertension 09/06/2021 Gastroesophageal reflux disease 09/06/2021 Hyperlipidemia 09/06/2021 Hypothyroidism 09/06/2021 Vitamin D deficiency 09/06/2021 Serum creatinine above reference range 0 Encounters Date Type Department Care Team Description 10/24/2024 Refill [facility] [address] [place] [address] Leonardo Stovall DO 10/08/2024 Telephone [facility] [address] [place] [address] Brook Velez from Last 3 Months Immunizations Name Administration Dates Next Due Influenza Split High Dose Pr eservative Free IM 07/01/2020 Influenza TIV (IM) 08/07/2016 Influenza, Quadrivalent, Pre servative Free 08/12/2019,08/12/2019,08/18/2018,08/18,07/12/2017,07/12/2017 Influenza, Unspecified 07/28/2021,08/07/2016 Pfizer SARS-COV-2 08/10/2021,01/07/2021,12/17/19 Pneumococcal Conjugate 13-Valent 07/19/2020 Pneumococcal Polysaccharide 07/19/2021 Shingrix 05/08/2022,01/19/2019 Tdap 04/17/2012 Zoster 01/19/2019,07/19/2014 Family History Medical History Relation Comments Cancer Mother Diabetes Mother Hypertension Mother Kidney disease Sibling 1 Son - high on car supervisor Cancer Sibling 2 brother-SCC Relation Status Comments Father Mother Sibling 1 Sibling 2 Social History Tobacco Use Types Packs/Day Years Used Date Smoking Tobacco: Never Comments Unknown Sex and Gender Information Value Date Recorded Sex Assigned at Not on file Legal Sex Female 3:19 PM EDT Gender Identity Not on file Sexual Orientation Not on file Last Filed Vital Signs Vital Sign Reading Time Taken Comments Blood Pressure 124/74 08/24/2024 6:03 PM EDT Pulse 70 08/24/2024 6:03 PM EDT Temperature - - Respiratory Rate - - Oxygen Saturation 98% 09/27/2020 12:00 PM EST Inhaled Oxygen Concentration - - Weight 123 kg (271 lb) 09/27/2020 12:00 PM EST Height 167.6 cm (5' 6 ) 09/27/2020 12:00 PM EST Body Mass Index 43.74 09/27/2020 12:00 PM EST Plan of Treatment Upcoming Encounters Date Type Department Care Team (Late st Contact Info) Description 12/10/2024 2:00 PM EST Office Visit [facility], [address] [place] [address] Leonardo Stovall DO [address] [place] [address] Health Maintenance Due Date Last Done Comments Breast Cancer Screening 1955 Colorectal Cancer Screening: Annual FOBT 2004 Colorectal Cancer Screening: Colonoscopy 2004 Colorectal Cancer Screening: Sigmoidoscopy 2004 Influenza Vaccine (#1) 2024 3, 07/28/2021, 07/01/2020, Additional history exists Pneumococcal Vaccine: 65+ Years Completed 07/17/2022, 07/19/2021, 07/19/2020 Hepatitis B Vaccine Aged Out No longe r eligible based on patient's age to complete this topic Procedures Procedure Name Priority Date/Time Associated Diagnosis Comments URIC ACID Routine 10/06/2024 7:41 AM EST Essential hypertension Hypertensive heart and chronic kidney disease without heart failure, with stage 1 through stage 4 chronic kidney disease, or unspecified chronic kidney disease Stage 3a chronic kidney disease (HCC) Uric acid renal calculus RENAL FUNCTION PANEL Routine 10/06/2024 7:41 AM EST Essential hypertension Hypertensive heart and chronic kidney disease without heart failure, with stage 1 through stage 4 chronic kidney disease, or unspecified chronic kidney disease Stage 3a chronic kidney disease (HCC) Uric acid renal calculus from Last 3 Months Results * (ABNORMAL) Uric acid (10/06/2024 7:41 AM EST) Uric Acid 7.6(H) 3.0 - 7.2 mg/dL [facility] Comment:Therapeutic target f or gout patients: <6.0 Blood (Blood, Venous) 10/06/2024 7:41 AM EST 10/06/2024 us Leonardo Stovall DO LAB BLOOD ORDERABLES Final Resu lt [facility]CO [facility] [address] [place] [address] * (ABNORMAL) Renal Function Panel (10/06/2024 7:41 AM EST) Glucose 118(H) 70 - 99 mg/dL [facility] BUN 27 8 - 27 mg/dL [facility] Creatinine 1.24(H) 0.57 - 1.00 mg/dL [facility] eGFR CKD-EPI CR 2020 47(L) >59 mL/min/1.7 3 [facility] BUN/Creatinine Ratio 22 12 - 28 [facility] Sodium 138 134 - 144 mmol/L [facility] Potassium 4.9 3.5 - 5.2 mmol/L [facility] Chloride 100 96 - 106 mmol/L [facility] Bicarbonate (CO2) 23 20 - 29 mmol/L [facility] Calcium 9.6 8.7 - 10.3 mg/dL [facility] Albumin 4.2 3.9 - 4.9 g/dL [facility] Phosphorus 3.7 3.0 - 4.3 mg/dL [facility] Blood (Blood, Venous) 10/06/2024 7:41 AM EST 10/06/2024 us Leonardo Stovall DO LAB BLOOD ORDERABLES Final Resu lt [facility] [address] [place] [address] from Last 3 Months Insurance [facility] MEDICARE Care Teams Area Field Manager Relationship Specialty Start Date End Date Sugey Rice MD [facility] [address] [address] PCP - General Family Medicine 09/04/21
--- OUTSIDE RECORDS SUMMARY | 2024-12-08 12:09 | XMS_ITS | Encounter Summary ---
Author Organization [facility] Address [address] [place] [address] Phone Care Team Providers Care Extractor Tender Raw Stock Name Role Phone Sugey Rice MD Primary Care Provider [phone] Encounter Details Date Type Department Care Team (Late st Contact Info) Description 10/08/2024 Telephone [facility] [place], [address] [place] [address] Brook Velez [address] [place] [address] Social History Tobacco Use Types Packs/Day Years Used Date Smoking Tobacco: Never Comments Unknown Sex and Gender Information Value Date Recorded Sex Assigned at Not on file Legal Sex Female 3:19 PM EDT Gender Identity Not on file Sexual Orientation Not on file documented as of this encounter Miscellaneous Notes * Telephone Encounter - Brook Velez - 10/08/2024 4:[address] Stovall, pt called to report PCP prescribed Pravastatin 10mg daily and she would like to get your advise if ok to start. Thanks in advance! [phone] documented in this encounter Plan of Treatment Upcoming Encounters Date Type Department Care Team (Late st Contact Info) Description 12/10/2024 2:00 PM EST Office Visit [facility], [address] [place] [address] Leonardo Stovall, [address] [place] [address] documented as of this encounter Visit Diagnoses Not on filedocumented in this encounter Care Teams Extractor Tender Raw Stock Relationship Specialty Start Date End Date Sugey Rice MD [address] [phone] PCP - General Family Medicine 09/04/21 documented as of this encounter
--- OUTSIDE RECORDS SUMMARY | 2024-12-08 12:09 | XMS_ITS | Encounter Summary ---
Author Organization [facility], Address [address] [place] [address] Phone Care Team Providers Care Skein Tier Name Role Phone Sugey Rice MD Primary Care Provider [phone] Encounter Details Date Type Department Care Team (Late st Contact Info) Description 04/28/2024 Documentation Only [facility] [place], [address] [phone] Leonardo Stovall DO [address] [facility] [address] [place] [address] Social History Tobacco Use Types Packs/Day Years [...] Visit [facility] [address] [place] [address] Leonardo Stovall DO [address] [facility] [address] [place] [phone] documented as of this encounter Visit Diagnoses Not on filedocumented in this encounter Care Teams Skein Tier Relationship Specialty Start Date End Date Sugey Rice MD [address] [facility] [address] [place] [phone] PCP - General Family Medicine 09/04/21 documented as of this encounter
--- OUTSIDE RECORDS SUMMARY | 2024-12-08 12:09 | XMS_ITS | Encounter Summary ---
Author Organization [facility] Address [address] [place] [address] Care Team Providers Care Cigarette Examiner Name Role Phone Sugey Rice MD Primary Care Provider [phone] Encounter Details Date Type Department Care Team (Late st Contact Info) Description 01/02/2022 Erroneous Encounter [facility] [address] [place] [address] Provider, MD Frank Social History Tobacco Use Types Packs/Day Years [...] AM EST Office Visit [facility] [address] [place] [address] Gurjit Steele MD [address] [facility] [address] [place] [address] 06/29/2025 10:30 AM EDT Office Visit [facility] [place] [address] [place] [phone] Josef Loya MD [address] [place] [address] documented as of this encounter Visit Diagnoses Not on filedocumented in this encounter Care Teams Cigarette Examiner Relationship Specialty Start Date End Date Sugey Rice MD [address] [place] [address] PCP - General Family Medicine 05/05/23 documented as of this encounter
--- OUTSIDE RECORDS SUMMARY | 2024-12-08 12:09 | XMS_ITS | Encounter Summary ---
Author Organization [facility], Address [address] [place] [address] Phone Care Team Providers Care Anthropology Professor Name Role Phone Sugey Rice MD Primary Care Provider Encounter Details Date Type Department Care Team (Late st Contact Info) Description 07/29/2023 Documentation Only [facility], [address] [place] [phone] [place], [place] [address] [place] [address] Social History Tobacco Use Types [...] Visit [facility] [address] [place] [address] Leonardo Stovall DO [address] [place] [address] documented as of this encounter Visit Diagnoses Not on filedocumented in this encounter Care Teams Anthropology Professor Relationship Specialty Start Date End Date Sugey Rice MD [address] [phone] PCP - General Family Medicine 09/04/21 documented as of this encounter
--- OUTSIDE RECORDS SUMMARY | 2024-12-08 12:09 | XMS_ITS | Encounter Summary ---
Author Organization [facility], Address [address] [place] [address] Phone Care Team Providers Care Social Media Content Specialist Name Role Phone Sugey Rice MD Primary Care Provider [phone] Encounter Details Date Type Department Care Team (Late st Contact Info) Description 07/25/2023 Documentation Only [facility] [place], [address] [facility] [place] [address] Leonardo Stovall DO [address] [facility] [address] [place] [address] Social History Tobacco Use Types [...] Visit [facility] [address] [facility] [address] [place] [address] Leonardo Stovall DO [address] [facility] [address] [place] [address] documented as of this encounter Visit Diagnoses Not on filedocumented in this encounter Care Teams Social Media Content Specialist Relationship Specialty Start Date End Date Sugey Rice MD [address] [facility] [address] [place] [phone] PCP - General Family Medicine 09/04/21 documented as of this encounter
--- OUTSIDE RECORDS SUMMARY | 2024-12-08 12:09 | XMS_ITS | Encounter Summary ---
Author Organization [facility], Address [address] [place] [address] Phone Care Team Providers Care Director Cost Name Role Phone Sugey Rice MD Primary Care Provider Reason for Visit * Reason Comments Med Refill Encounter Details Date Type Department Care Team (Late st Contact Info) Description 10/24/2024 Refill [facility] [address] [place] [address] Leonardo Stovall DO [address] [facility] [place] [address] Social History Tobacco Use Types [...] Office Visit [facility] [address] [facility] [place] [address] Leonardo Stovall DO [address] [facility] [place] [address] documented as of this encounter Visit Diagnoses Not on filedocumented in this encounter Care Teams Director Cost Relationship Specialty Start Date End Date Sugey Rice MD [address] [phone] PCP - General Family Medicine 09/04/21 documented as of this encounter
--- OUTSIDE RECORDS SUMMARY | 2024-12-08 12:09 | XMS_ITS | Encounter Summary ---
Author Organization [facility] [place], Address [address] [place] [address] Phone Care Team Providers Care Log Truck Driver Name Role Phone Sugey Rice MD Primary Care Provider [phone] Encounter Details Date Type Department Care Team (Late st Contact Info) Description 07/22/2023 Documentation Only [facility] [place], [address] [address] Leonardo Stovall DO [address] [address] [place] [address] Social History Tobacco Use Types [...] Visit [facility] [address] [place] [address] Leonardo Stovall DO [address] [address] [place] [address] documented as of this encounter Visit Diagnoses Not on filedocumented in this encounter Care Teams Log Truck Driver Relationship Specialty Start Date End Date Sugey Rice MD [address] [facility] [address] [place] [phone] PCP - General Family Medicine 09/04/21 documented as of this encounter
--- OUTSIDE RECORDS SUMMARY | 2024-12-08 12:09 | XMS_ITS | Encounter Summary ---
Author Organization [facility] [place], Address [address] [place] [address] Phone Care Team Providers Care Binding Printer Name Role Phone Sugey Rice MD Primary Care Provider [phone] Encounter Details Date Type Department Care Team (Late st Contact Info) Description 08/04/2023 Documentation Only [facility] [place] [facility], [address] [facility] [place] [phone] Leonardo Stovall DO [address] [facility] [address] [place] [address] Social History Tobacco Use Types [...] Visit [facility] [address] [facility] [place] [address] Leonardo Stovall DO [address] [facility] [address] [place] [address] documented as of this encounter Visit Diagnoses Not on filedocumented in this encounter Care Teams Binding Printer Relationship Specialty Start Date End Date Sugey Rice MD [address] [facility] [address] [place] [phone] PCP - General Family Medicine 09/04/21 documented as of this encounter
[2024-12-08 12:10] VITALS: BP 124/62; PULSE 63; RESP 12; O2SAT 96
--- OUTSIDE RECORDS SUMMARY | 2024-12-08 12:11 | XMS_ITS | Data Portability ---
Author Organization [facility], Main Office Address [address] [place] [address] Care Team Providers Care Microgrinder Operator Name Role Phone LAURA YUN Net Making Supervisor [phone] KELLY KAN Remedy Developer [facility] Electroformer [facility] PHYSICAL [facility] (RONY ALONSO) Orthopedic Surgeon GAVI YEPEZ Metallurgical Engineer JOSEPH BOONE Referring Provider HALEIGH CANTOR Embossing Calender Operator NII YATES Primary Care Provider MALIK SHAHID Can Striper JULIETA LAND Field Naturalist GURJIT STEELE Orthopedic Surgeon [phone] Assessment Encounter Date Assessment Date Assessment LastModified by Organization Details LastModified Time 08/25/2024 08/25/2024 Patient is at lo w risk for cardiopulmonary complications with planned procedure based on comorbidities, good exertional tolerance and overall procedure risk. Patient advised to avoid aspirin for 14 days and NSAIDS for 7 days prior. May proceed to scheduled surgery as planned. [email or web address] Not available 08/25/2024 10:13:22 Plan of Treatment Reminders Order Date Submit Date Provider Last Modified By Organization Details Last Modified Time Details Appointments FOLLOW UP 2024 09:45A Arianne Yates MD Not available Not available Not available Lab CBC w/ auto diff 2023 024 [facility], [address], [place], [address], 08/05/2024 08:08:58 respirato ry allergen panel - [place] a 2023 024 [place], [address], [place], [address], 08/09/2024 10:05:57 BNP (B-type natriuret ic peptide), serum or plasma 2023 024 [facility], [address], [place], [address], 08/09/2024 10:05:55 procalcit onin, serum 2023 024 [facility], [address] [facility], [facility] [address], [place], [address], 08/09/2024 10:05:56 magnesium , serum or plasma 2023 024 [facility], [address], [facility] [address], [place], [address], 10/07/2024 08:09:37 lipid panel, serum 2023 024 [facility], [address], [facility] [address], [place], [address], 10/07/2024 08:09:32 aspartate aminotran sferase/a lanine aminotran sferase, ratio, serum or plasma (OBS) 2023 024 [facility], [address], [place], [address], 10/07/2024 08:09:33 TSH, ultra-sen sitive, serum 2023 024 [facility], [address], [address], [place], [address], 10/07/2024 08:09:36 HbA1c (hemoglob in A1c), blood 2023 [place] [facility], [address], [address], [place], [address], 10/07/2024 08:09:34 vitamin D, 25-hydrox y, total, serum 2023 024 [facility], [address], [address], [place], [address], 10/07/2024 08:09:35 Referral sleep medicine referral - New onset of atrial flutter in obese pt. recommend polysomno gram. 2023 [facility] , [address], [place], [address], 11/09/2024 11:15:20 Procedures None recorded. Surgeries None recorded. Imaging XR, chest, 2 view 2023 024 [place] In-Office Order, Internal Use Only DO Not Attach Compendium DO Not Attach Compendium, Do Not Delete/merge, [id number] 08/04/2024 19:53:34 electroca rdiogram 2023 024 [email or web address] In-Office Order, Internal Use Only DO Not Attach Compendium DO Not Attach Compendium, Do Not Delete/merge, [id number] 08/25/2024 10:25:17 MAMMO, screening , bilateral - Perform Diagnosti c Mammogram and Breast Ultrasoun d if needed / Perform Ultrasoun d Guided Aspiratio n and/or Breast Biopsy if warranted 2023 024 [facility], [address], [place], [address], 11/04/2024 11:16:20 Medication Orders Flonase Sensimist 27.5 mcg/actua tion nasal spray,yakelin pension 2023 024 [place] [id number], [address], [place], [address], 08/03/2024 13:53:59 Saline Mist 0.65 % nasal spray aerosol 2023 024 [id number], [address], [place], [address], 08/03/2024 13:53:58 albuterol sulfate HFA 90 mcg/actua tion aerosol inhaler 2023 024 [id number], [address], [place], [address], 08/03/2024 13:55:03 Patient TargetsNo targets recorded. Patient Instructions Encounter Date Encounter Id Patient Instructions Last Modified By Organization Details Last Modified Time 08/03/2024 [id number] allergies: care instructions [email or web address] Not available 08/03/2024 13:53:54 saline nasal washes: care instructions [email or web address] Not available 08/03/2024 13:53:54 cough: care instructions [email or web address] Not available 08/03/2024 13:48:08 10/05/2024 [id number] advance care planning: care instructions [email or web address] Not available 10/05/2024 10:34:44 preventing falls : care instructions [email or web address] Not available 10/05/2024 10:34:44 medicare preventive services guide (female 74yrs and under) [email or web address] Not available 10/05/2024 10:34:44 well visit, over 65: care instructions [email or web address] Not available 10/05/2024 10:34:44 11/04/2024 [id number] During [facility] f/u call, all current and discharge medications (OTC, herbal therapies, supplements) reviewed and reconciled with patient, including potential side effects, drug interactions, instructions, and the consequences of not taking medication. Reviewed potential barriers to medication adherence, such as side effects from medication or cost of medication. [email or web address] Not available 11/04/2024 09:14:17 11/09/2024 [id number] hypothyroidism: care instructions [email or web address] Not available 11/09/2024 11:00:23 At [facility] follow up visit, all current and discharge medications (OTC, herbal therapies, supplements) reviewed and reconciled with patient and or caregiver, including potential side effects, drug interactions, instructions, and the consequences of not taking medication. Reviewed potential barriers to medication adherence, such as side effects from medication or cost of medication. [email or web address] Not available 11/09/2024 10:21:09 Reason for Referral Sleep Medicine Referral for Atrial flutter New onset of atrial flutter in obese pt. recommend polysomnogram. Referring Physician: Janel Sandoval, Internal Medicine, Encounter Date: 11/09/2024 Results Created Date Observation Date Name Description Value Unit Range Abnormal Flag Note LastModifiedBy Organization Detail LastModifiedTime 08/04/2008/05/2024 URINA LYSIS , ROUTI NE specific gravity 1.019 1.005- 1.030 normal Not Available [facility] ([facility]) [address] [place], [address], 08/05/2024 08:08:57 08/04/2008/05/2024 URINA LYSIS , ROUTI NE pH 6.0 5.0-7. 5 normal Not Available [facility] ([facility]) [address] [place], [address], 08/05/2024 08:08:57 08/04/2008/05/2024 URINA LYSIS , ROUTI NE urine-color Yellow yellow Not Available [facility] ([facility]) [address] [place], [address], 08/05/2024 08:08:57 08/04/2008/05/2024 URINA LYSIS , ROUTI NE appearance Clear clear Not Available [facility] ([facility]) [address] [place], [address], 08/05/2024 08:08:57 08/04/2008/05/2024 URINA LYSIS , ROUTI NE WBC esterase Negati ve negati ve Not Available [facility] ([facility]) [address] [place], [address], 08/05/2024 08:08:57 08/04/202024 URINA LYSIS , ROUTI NE protein Negati ve negati ve/tra ce Not Available [facility] ([facility]) [address] [place], [address], 08/05/2024 08:08:57 08/04/20 24 08/05/2024 URINA LYSIS , ROUTI NE glucose Negati ve negati ve Not Available [facility] ([facility]) [address] [place], [address], 08/05/2024 08:08:57 08/04/20 24 08/05/2024 URINA LYSIS , ROUTI NE ketones Negati ve negati ve Not Available [facility] ([facility]) [address] [place], [address], 08/05/2024 08:08:57 08/04/20 24 08/05/2024 URINA LYSIS , ROUTI NE occult blood Negati ve negati ve Not Available [facility] ([facility]) [address] [place], [address], 08/05/2024 08:08:57 08/04/20 24 08/05/2024 URINA LYSIS , ROUTI NE bilirubin Negati ve negati ve Not Available [facility] ([facility]) [address] [place], [address], 08/05/2024 08:08:57 08/04/20 24 08/05/2024 URINA LYSIS , ROUTI NE urobilinogen ,semi-qn 0.2 mg/dL 0.2-1. 0 normal Not Available [facility] ([facility]) [address] [place], [address], 08/05/2024 08:08:57 08/04/20 24 08/05/2024 URINA LYSIS , ROUTI NE nitrite, urine Negati ve negati ve Not Available [facility] ([facility]) [address] [place], [address], 08/05/2024 08:08:57 08/04/20 24 08/05/2024 URINA LYSIS , ROUTI NE microscopic examination Commen marina sherman ws if indic ated. Not Available [facility] ([facility]) [address] [place], [address], 08/05/2024 08:08:57 08/04/20 24 08/05/2024 CBC WITH DIFFE RENTI AL/PL ATELE T WBC 5.9 x10e3 /uL 3.4-10 .8 normal Not Available [facility] ([facility]) [address] [place], [address], 08/05/2024 08:08:58 08/04/20 24 08/05/2024 CBC WITH DIFFE RENTI AL/PL ATELE T RBC 4.59 x10e6 /uL 3.77-5 .28 normal Not Available [facility] ([facility]) [address] [facility], [place], [address], 08/05/2024 08:08:58 08/04/20 24 08/05/2024 CBC WITH DIFFE RENTI AL/PL ATELE T hemoglobin 13.9 g/dL 11.1-1 5.9 normal Not Available [facility] ([facility]) [address] [place], [address], 08/05/2024 08:08:58 08/04/20 24 08/05/2024 CBC WITH DIFFE RENTI AL/PL ATELE T hematocrit 43.2 % 34.0-4 6.6 normal Not Available [facility] ([facility]) [address] [place], [address], 08/05/2024 08:08:58 08/04/20 24 08/05/2024 CBC WITH DIFFE RENTI AL/PL ATELE T MCV 94 fL 79-97 normal Not Available [facility] ([facility]) [address] [place], [address], 08/05/2024 08:08:58 08/04/20 24 08/05/2024 CBC WITH DIFFE RENTI AL/PL ATELE T MCH 30.3 pg 26.6-3 3.0 normal Not Available [facility] ([facility]) [address] [facility], [place], [address], 08/05/2024 08:08:58 08/04/20 24 08/05/2024 CBC WITH DIFFE RENTI AL/PL ATELE T MCHC 32.2 g/dL 31.5-3 5.7 normal Not Available [facility] ([facility]) [address] [facility], [place], [address], 08/05/2024 08:08:58 08/04/20 24 08/05/2024 CBC WITH DIFFE RENTI AL/PL ATELE T RDW 11.7 % 11.7-1 5.4 Not Available [facility] ([facility]) [address] [facility], [place], [address], 08/05/2024 08:08:58 08/04/20 24 08/05/2024 CBC WITH DIFFE RENTI AL/PL ATELE T platelets 182 x10e3 /uL 150-45 0 normal Not Available [facility] ([facility]) [address] [place], [address], 08/05/2024 08:08:58 08/04/20 24 08/05/2024 CBC WITH DIFFE RENTI AL/PL ATELE T neutrophils 64 % not estab. normal Not Available [facility] ([facility]) [address] [place], [address], 08/05/2024 08:08:58 08/04/20 24 08/05/2024 CBC WITH DIFFE RENTI AL/PL ATELE T lymphs 25 % not estab. normal Not Available [facility] ([facility]) [address] [place], [address], 08/05/2024 08:08:58 08/04/20 24 08/05/2024 CBC WITH DIFFE RENTI AL/PL ATELE T monocytes 7 % not estab. normal Not Available [facility] ([facility]) [address] [facility], [place], [address], 08/05/2024 08:08:58 08/04/20 24 08/05/2024 CBC WITH DIFFE RENTI AL/PL ATELE T eos 3 % not estab. normal Not Available [facility] ([facility]) [address] [place], [address], 08/05/2024 08:08:58 08/04/20 24 08/05/2024 CBC WITH DIFFE RENTI AL/PL ATELE T basos 1 % not estab. normal Not Available [facility] ([facility]) [address] [place], [address], 08/05/2024 08:08:58 08/04/20 24 08/05/2024 CBC WITH DIFFE RENTI AL/PL ATELE T immature cells COAGULATOR Not Available [facility] ([facility]) [address] [place], [address], 08/05/2024 08:08:58 08/04/20 24 08/05/2024 CBC WITH DIFFE RENTI AL/PL ATELE T neutrophils (absolute) 3.8 x10e3 /uL 1.4-7. 0 normal Not Available [facility] ([facility]) [address] [place], [address], 08/05/2024 08:08:58 08/04/20 24 08/05/2024 CBC WITH DIFFE RENTI AL/PL ATELE T lymphs (absolute) 1.5 x10e3 /uL 0.7-3. 1 normal Not Available [facility] ([facility]) [address] [place], [address], 08/05/2024 08:08:58 08/04/20 24 08/05/2024 CBC WITH DIFFE RENTI AL/PL ATELE T monocytes(ab solute) 0.4 x10e3 /uL 0.1-0. 9 normal Not Available [facility] ([facility]) [address] [facility], [place], [address], 08/05/2024 08:08:58 08/04/20 24 08/05/2024 CBC WITH DIFFE RENTI AL/PL ATELE T eos (absolute) 0.2 x10e3 /uL 0.0-0. 4 normal Not Available [facility] ([facility]) [address] [facility], [place], [address], 08/05/2024 08:08:58 08/04/20 24 08/05/2024 CBC WITH DIFFE RENTI AL/PL ATELE T baso (absolute) 0.1 x10e3 /uL 0.0-0. 2 normal Not Available [facility] ([facility]) [address] [facility], [place], [address], 08/05/2024 08:08:58 08/04/20 24 08/05/2024 CBC WITH DIFFE RENTI AL/PL ATELE T immature granulocytes 0 % not estab. Not Available [facility] ([facility]) [address] [facility], [place], [address], 08/05/2024 08:08:58 08/04/20 24 08/05/2024 CBC WITH DIFFE RENTI AL/PL ATELE T immature grans (abs) 0.0 x10e3 /uL 0.0-0. 1 Not Available [facility] ([facility]) [address] [place], [address], 08/05/2024 08:08:58 08/04/20 24 08/05/2024 CBC WITH DIFFE RENTI AL/PL ATELE T NRBC COAGULATOR Not Available [facility] ([facility]) [address] [place], [address], 08/05/2024 08:08:58 08/04/20 24 08/05/2024 CBC WITH DIFFE MARISOLTI AL/PL THAIS T hematology comments: COAGULATOR Not Available [facility] ([facility]) [address] [facility], [place], [address], 08/05/2024 08:08:58 08/04/20 24 08/05/2024 URINA LYSIS , COMPL ETE microscopic examination See below: Micro scopi c was indic ated and was perfo rmed. Not Available [facility] ([facility]) [address] [facility], [place], [address], 08/05/2024 08:08:59 08/04/20 24 08/05/2024 URINA LYSIS , COMPL ETE WBC 0-5 /hpf 0 - 5 Not Available [facility] ([facility]) [address] [facility], [place], [address], 08/05/2024 08:08:59 08/04/20 24 08/05/2024 URINA LYSIS , COMPL ETE RBC 0-2 /hpf 0 - 2 Not Available [facility] ([facility]) [address] [facility], [place], [address], 08/05/2024 08:08:59 08/04/20 24 08/05/2024 URINA LYSIS , COMPL ETE epithelial cells (non renal) None seen /hpf 0 - 10 Not Available [facility] ([facility]) [address] [facility], [place], [address], 08/05/2024 08:08:59 08/04/20 24 08/05/2024 URINA LYSIS , COMPL ETE epithelial cells (renal) COAGULATOR Not Available [facility] ([facility]) [address] [place], [address], 08/05/2024 08:08:59 08/04/20 24 08/05/2024 URINA LYSIS , COMPL ETE casts None seen /lpf none seen Not Available [facility] ([facility]) [address] [facility], [place], [address], 08/05/2024 08:08:59 08/04/20 24 08/05/2024 URINA LYSIS , COMPL ETE cast type COAGULATOR Not Available [facility] ([facility]) [address] [facility], [place], [address], 08/05/2024 08:08:59 08/04/20 24 08/05/2024 URINA LYSIS , COMPL ETE crystals COAGULATOR Not Available [facility] ([facility]) [address] [place], [address], 08/05/2024 08:08:59 08/04/20 24 08/05/2024 URINA LYSIS , COMPL ETE crystal type COAGULATOR Not Available [facility] ([facility]) [address] [facility], [place], [address], 08/05/2024 08:08:59 08/04/20 24 08/05/2024 URINA LYSIS , COMPL ETE mucus threads COAGULATOR Not Available [facility] ([facility]) [address] [place], [address], 08/05/2024 08:08:59 08/04/20 24 08/05/2024 URINA LYSIS , COMPL ETE bacteria Few none seen/f ew Not Available [facility] ([facility]) [address] [place], [address], 08/05/2024 08:08:59 08/04/20 24 08/05/2024 URINA LYSIS , COMPL ETE yeast COAGULATOR Not Available [facility] ([facility]) [address] [place], [address], 08/05/2024 08:08:59 08/04/20 24 08/05/2024 URINA LYSIS , COMPL ETE trichomonas COAGULATOR Not Available [facility] ([facility]) [address] [place], [address], 08/05/2024 08:08:59 08/04/20 24 08/05/2024 URINA LYSIS , COMPL ETE comment COAGULATOR Not Available [facility] ([facility]) [address] [facility] [place], [address], 08/05/2024 08:08:59 08/04/20 24 08/05/2024 UA WITH CULTU RE REFLE X urinalysis reflex Commen t This speci men will not refle x to a Urine Cultu re. Not Available [facility] ([facility]) [address] [facility] [place], [address], 08/05/2024 08:08:59 08/04/20 24 08/05/2024 BASIC METAB OLIC PANEL (8) glucose 129 mg/dL 70-99 above high normal Not Available [facility] ([facility]) [address] [facility] [place], [address], 08/05/2024 08:09:00 08/04/20 24 08/05/2024 BASIC METAB OLIC PANEL (8) BUN 29 mg/dL 8-27 above high normal Not Available [facility] ([facility]) [address] [facility] [place], [address], 08/05/2024 08:09:00 08/04/20 24 08/05/2024 BASIC METAB OLIC PANEL (8) creatinine 1.59 mg/dL 0.57-1 .00 above high normal Not Available [facility] ([facility]) [address] [facility] [place], [address], 08/05/2024 08:09:00 08/04/20 24 08/05/2024 BASIC METAB OLIC PANEL (8) eGFR 35 mL/mi n/1.7 3 >59 below low normal Not Available [facility] ([facility]) [address] [facility] [place], [address], 08/05/2024 08:09:00 08/04/20 24 08/05/2024 BASIC METAB OLIC PANEL (8) BUN/creatini ne ratio 18 12-28 normal Not Available [facility] ([facility]) [address] [place], [address], 08/05/2024 08:09:00 08/04/20 24 08/05/2024 BASIC METAB OLIC PANEL (8) sodium 140 mmol/ L 134-14 4 normal Not Available [facility] ([facility]) [address] [place], [address], 08/05/2024 08:09:00 08/04/2008/05/2024 BASIC METAB OLIC PANEL (8) potassium 4.8 mmol/ L 3.5-5. 2 normal Not Available [facility] ([facility]) [address] [place], [address], 08/05/2024 08:09:00 08/04/20 24 08/05/2024 BASIC METAB OLIC PANEL (8) chloride 103 mmol/ L 96-106 normal Not Available [facility] ([facility]) [address] [place], [address], 08/05/2024 08:09:00 08/04/20 24 08/05/2024 BASIC METAB OLIC PANEL (8) carbon dioxide, total 21 mmol/ L 20-29 normal Not Available [facility] ([facility]) [address] [place], [address], 08/05/2024 08:09:00 08/04/20 24 08/05/2024 BASIC METAB OLIC PANEL (8) calcium 9.3 mg/dL 8.7-10 .3 normal Not Available [facility] ([facility]) [address] [place], [address], 08/05/2024 08:09:00 08/04/20 24 08/05/2024 B-TYP E NATRI URETI C PEPTI DE B-type natriuretic peptide 43.1 pg/mL 0.0-10 0.0 Sieme ns [facility] metho dolog y Not Available [facility] ([facility]) [address] [facility], [place], [address], 08/09/2024 10:05:55 08/04/20 24 08/06/2024 PROCA LCITO SRAVANI procalcitoni n 0.06 NG/mL 0.00-0 .08 A proca lcito sravani (PCT) level above 2.0 ng/mL on the first day of ICU admis francisco is assoc iated with a high risk for progr essio n to sever e sepsi s and/o r septi c shock . A PCT level below 0.5 ng/mL on the first day of ICU admis francisco is assoc iated with a low risk for progr essio n to sever e sepsi s and/o r septi c shock . Note: Lilia ntrat ions <0.5 ng/mL do not exclu de an infec tion, on accou nt of local ized infec tions (with out syste peña signs ) which can be assoc iated with such low lilia ntrat ions, or a syste peña infec tion in its initi al stage s (<6 hours ). Furth ermor e, incre ased proca lcito sravani can occur witho ut infec tion. PCT lilia ntrat ions betwe en 0.5 and 2.0 ng/mL shoul d be inter prete d leland g into accou nt the patie nt's histo ry. It is recom brittnee d to retes t PCT withi n 6-24 hours if any lilia ntrat ions <2 ng/mL are obtai neela. Not Available [facility] ([facility]) [address] [facility], [place], [address], 08/09/2024 10:05:56 08/04/20 24 08/04/2024 ALLER GENS W/TOT AL IGE AREA 1 class description Commen t Level s of Speci fic IgE Class Descr iptio n of Class ----- ----- ----- ----- ----- -- ----- ----- ----- ----- ----- < 0.10 0 Negat anson 0.10 - 0.31 0/I Equiv ocal/ Low 0.32 - 0.55 I Low 0.56 - 1.40 II Moder ate 1.41 - 3.90 III High 3.91 - 19.00 IV Very High 19.01 - 100.0 0 V Very High >100. 00 Very High Not Available [facility] ([facility]) [address] [place], [address], 08/09/2024 10:05:57 08/04/20 24 08/07/2024 ALLER GENS W/TOT AL IGE AREA 1 immunoglobul in E, total 24 IU/mL 6-495 Not Available [facility] ([facility]) [address] [place], [address], 08/09/2024 10:05:57 08/04/20 24 08/07/2024 ALLER GENS W/TOT AL IGE AREA 1 L487-IeP D pteronyssinu s <0.10 kU/L class 0 Not Available [facility] ([facility]) [address] [place], [address], 08/09/2024 10:05:57 08/04/20 24 08/07/2024 ALLER GENS W/TOT AL IGE AREA 1 E063-UhQ D farinae <0.10 kU/L class 0 Not Available [facility] ([facility]) [address] [place], [address], 08/09/2024 10:05:57 08/04/20 24 08/07/2024 ALLER GENS W/TOT AL IGE AREA 1 P128-KdD CAT dander <0.10 kU/L class 0 Not Available [facility] ([facility]) [address] [place], [address], 08/09/2024 10:05:57 08/04/20 24 08/07/2024 ALLER GENS W/TOT AL IGE AREA 1 O936-YrK dog dander <0.10 kU/L class 0 Not Available [facility] ([facility]) [address] [place], [address], 08/09/2024 10:05:57 08/04/20 24 08/07/2024 ALLER GENS W/TOT AL IGE AREA 1 d944-XjE bermuda grass <0.10 kU/L class 0 Not Available [facility] ([facility]) [address] [place], [address], 08/09/2024 10:05:57 08/04/20 24 08/07/2024 ALLER GENS W/TOT AL IGE AREA 1 m621-ZlF pat grass <0.10 kU/L class 0 Not Available [facility] ([facility]) [address] [place], [address], 08/09/2024 10:05:57 08/04/20 24 08/07/2024 ALLER GENS W/TOT AL IGE AREA 1 C050-HvG cockroach, stateless <0.10 kU/L class 0 Not Available [facility] ([facility]) [address] [place], [address], 08/09/2024 10:05:57 08/04/20 24 08/07/2024 ALLER GENS W/TOT AL IGE AREA 1 A735-TzW penicillium chrysogen <0.10 kU/L class 0 Not Available [facility] ([facility]) [address] [place], [address], 08/09/2024 10:05:57 08/04/20 24 08/07/2024 ALLER GENS W/TOT AL IGE AREA 1 P982-WmW cladosporium herbarum <0.10 kU/L class 0 Not Available [facility] ([facility]) [address] [place], [address], 08/09/2024 10:05:57 08/04/20 24 08/07/2024 ALLER GENS W/TOT AL IGE AREA 1 U930-IsU aspergillus fumigatus <0.10 kU/L class 0 Not Available [facility] ([facility]) [address], [place], [address], 08/09/2024 10:05:57 08/04/20 24 08/07/2024 ALLER GENS W/TOT AL IGE AREA 1 V951-WiI alternaria alternata <0.10 kU/L class 0 Not Available [facility] ([place] [facility]) [address] [facility], [place], [address], 08/09/2024 10:05:57 08/04/20 24 08/07/2024 ALLER GENS W/TOT AL IGE AREA 1 M877-JsV maple/box elder <0.10 kU/L class 0 Not Available [facility] ([facility]) [address] [facility], [place], [address], 08/09/2024 10:05:57 08/04/20 24 08/07/2024 ALLER GENS W/TOT AL IGE AREA 1 B973-YzU common silver birch <0.10 kU/L class 0 Not Available [facility] ([facility]) [address] [facility], [place], [address], 08/09/2024 10:05:57 08/04/20 24 08/07/2024 ALLER GENS W/TOT AL IGE AREA 1 C819-MxS cedar, mountain <0.10 kU/L class 0 Not Available [facility] ([place] [facility]) [address] [facility], [place], [address], 08/09/2024 10:05:57 08/04/20 24 08/07/2024 ALLER GENS W/TOT AL IGE AREA 1 E296-QfC oak, white <0.10 kU/L class 0 Not Available [facility] ([place] [facility]) [address] [facility], [place], [address], 08/09/2024 10:05:57 08/04/20 24 08/07/2024 ALLER GENS W/TOT AL IGE AREA 1 N563-VzT elm, swazi <0.10 kU/L class 0 Not Available [facility] ([place] [facility]) [address] [facility], [place], [address], 08/09/2024 10:05:57 08/04/20 24 08/07/2024 ALLER GENS W/TOT AL IGE AREA 1 V676-KsY walnut <0.10 kU/L class 0 Not Available [facility] ([place] [facility]) [address] [facility], [place], [address], 08/09/2024 10:05:57 08/04/20 24 08/07/2024 ALLER GENS W/TOT AL IGE AREA 1 D081-BsO maple leaf sycamore <0.10 kU/L class 0 Not Available [facility] ([place] [facility]) [address] [facility], [place], [address], 08/09/2024 10:05:57 08/04/20 24 08/07/2024 ALLER GENS W/TOT AL IGE AREA 1 M045-CjG cottonwood <0.10 kU/L class 0 Not Available [facility] ([place] [facility]) [address] [facility], [place], [address], 08/09/2024 10:05:57 08/04/20 24 08/07/2024 ALLER GENS W/TOT AL IGE AREA 1 H321-CmY jazlyn, white <0.10 kU/L class 0 Not Available [facility] ([place] [facility]) [address] [facility], [place], [address], 08/09/2024 10:05:57 08/04/20 24 08/07/2024 ALLER GENS W/TOT AL IGE AREA 1 C771-YjD white mulberry <0.10 kU/L class 0 Not Available [facility] ([place] [facility]) [address] [facility], [place], [address], 08/09/2024 10:05:57 08/04/20 24 08/07/2024 ALLER GENS W/TOT AL IGE AREA 1 K854-EwL ragweed, short <0.10 kU/L class 0 Not Available [facility] ([facility]) [address] [facility], [place], [address], 08/09/2024 10:05:57 08/04/20 24 08/07/2024 ALLER GENS W/TOT AL IGE AREA 1 U534-VuW mugwort <0.10 kU/L class 0 Not Available [facility] ([facility]) [address] [facility], [place], [address], 08/09/2024 10:05:57 08/04/20 24 08/07/2024 ALLER GENS W/TOT AL IGE AREA 1 G267-RdH pigweed, common <0.10 kU/L class 0 Not Available [facility] ([facility]) [address] [facility], [place], [address], 08/09/2024 10:05:57 08/04/20 24 08/07/2024 ALLER GENS W/TOT AL IGE AREA 1 V764-HmE sheep sorrel <0.10 kU/L class 0 Not Available [facility] ([facility]) [address] [place], [address], 08/09/2024 10:05:57 08/04/20 24 08/07/2024 ALLER GENS W/TOT AL IGE AREA 1 B342-HzX mouse urine <0.10 kU/L class 0 Not Available [facility] ([facility]) [address] [place], [address], 08/09/2024 10:05:57 10/06/20 24 10/06/2024 LIPID PANEL cholesterol, total 183 mg/dL 100-19 9 normal Not Available [facility] ([facility]) [address] [place], [address], 10/07/2024 08:09:32 10/06/20 24 10/06/2024 LIPID PANEL triglyceride s 119 mg/dL 0-149 normal Not Available [facility] ([facility]) [address] [place], [address], 10/07/2024 08:09:32 10/06/20 24 10/06/2024 LIPID PANEL HDL cholesterol 44 mg/dL >39 normal Not Available [facility] ([facility]) [address] [place], [address], 10/07/2024 08:09:32 10/06/20 24 10/06/2024 LIPID PANEL VLDL cholesterol roxane 21 mg/dL 5-40 Not Available [facility] ([facility]) [address] [place], [address], 10/07/2024 08:09:32 10/06/20 24 10/06/2024 LIPID PANEL LDL chol calc ([facility]) 118 mg/dL 0-99 above high normal Not Available [facility] ([facility]) [address] [place], [address], 10/07/2024 08:09:32 10/06/20 24 10/06/2024 LIPID PANEL LDL calc comment: COAGULATOR Not Available [facility] ([facility]) [address] [place], [address], 10/07/2024 08:09:32 10/06/20 24 10/06/2024 ALT+A ST AST (SGOT) 13 IU/L 0-40 normal Not Available [facility] ([facility]) [address] [place], [address], 10/07/2024 08:09:33 10/06/20 24 10/06/2024 ALT+A ST ALT (SGPT) 12 IU/L 0-32 normal Not Available [facility] ([facility]) [address] [place], [address], 10/07/2024 08:09:33 10/06/20 24 10/06/2024 HEMOG LOBIN A1C hemoglobin A1C 5.9 % 4.8-5. 6 above high normal Predi abete s: 5.7 - 6.4 Diabe angela: >6.4 Glyce peña contr ol for adult s with diabe angela: <7.0 Not Available [facility] ([facility]) [address], [place], [address], 10/07/2024 08:09:34 10/06/20 24 10/07/2024 VITAM IN D, 25-HY DROXY vitamin D, 25-hydroxy 27.3 NG/mL 30.0-1 00.0 below low normal Vitam in D defic iency has been defin ed by the Insti tute of Medic ine and an Endoc rine Socie ty pract ice guide line as a level of serum 25-OH vitam in D less than 20 ng/mL (1,2) . The Endoc rine Socie ty went on to furth er defin e vitam in D insuf ficie ncy as a level betwe en 21 and 29 ng/mL (2). 1. IOM (Inst itute of Medic ine). 2009. Dieta ry refer ence intak es for calci um and D. Samantha chao DC: The [facility] . 2. Ashley garcia MF, Meg forte [place], Echo off-F errar i ANGEL, et al. Evalu ation , treat ment, and preve ntion of vitam in D defic iency : an Endoc rine Socie ty clini roxane pract ice guide line. JCEM. 2010; 96(7) :1911 -30. Not Available [facility] ([facility]) [address], [place], [address], 10/07/2024 08:09:35 10/06/20 24 10/07/2024 TSH RFX ON ABNOR MAL TO FREE T4 TSH 2.080 uIU/m L 0.450- 4.500 normal Not Available [facility] ([facility]) [address] [place], [address], 10/07/2024 08:09:35 10/06/20 24 10/07/2024 MAGNE SIUM magnesium 2.1 mg/dL 1.6-2. 3 normal Not Available [facility] ([facility]) [address] [place], [address], 10/07/2024 08:09:36 12/05/19 25 12/06/2024 LIPID PANEL cholesterol, total 140 mg/dL 100-19 9 normal Not Available [facility] ([facility]) [address] [place], [address], 12/07/2024 06:07:13 12/05/19 25 12/06/2024 LIPID PANEL triglyceride s 81 mg/dL 0-149 normal Not Available [facility] ([facility]) [address] [place], [address], 12/07/2024 06:07:13 12/05/19 25 12/06/2024 LIPID PANEL HDL cholesterol 48 mg/dL >39 normal Not Available [facility] ([facility]) [address] [place], [address], 12/07/2024 06:07:13 12/05/19 25 12/06/2024 LIPID PANEL VLDL cholesterol roxane 16 mg/dL 5-40 Not Available [facility] ([facility]) [address] [place], [address], 12/07/2024 06:07:13 12/05/19 25 12/06/2024 LIPID PANEL LDL chol calc ([facility]) 76 mg/dL 0-99 Not Available [facility] ([facility]) [address] [place], [address], 12/07/2024 06:07:13 12/05/19 25 12/06/2024 LIPID PANEL LDL calc comment: COAGULATOR Not Available [facility] ([facility]) [address], [place], [address], 12/07/2024 06:07:13 12/05/1912/06/2024 ALT+A ST AST (SGOT) 13 IU/L 0-40 normal Not Available [facility] ([facility]) [address], [place], [address], 12/07/2024 06:07:14 12/05/19 25 12/06/2024 ALT+A ST ALT (SGPT) 12 IU/L 0-32 normal Not Available [facility] ([facility]) [address], [place], [address], 12/07/2024 06:07:14 08/04/20 24 08/04/2024 XR, chest , 2 view Chest 2 Views Fronta l and Lat INDICA TION/C LINICA L QUESTI ON: Reason : cough / TECHNI QUE: Fronta l and latera l views of the chest. COMPAR JOSE M: None.. FINDIN GS: LINES AND TUBES: None. LUNGS AND PLEURA : RIGHT CHEST: The right lung is clear and there is no right effusi on. LEFT CHEST: The left lung is clear and there is no left effusi on. HEART, MEDIAS TINUM AND PERFECTO: The heart is of normal size. The medias tinum and perfecto are normal . BONES AND SOFT TISSUE S: No acute bony abnorm ality. IMPRES FRANCISCO: 1. No active diseas e in chest. WSN: [id number] Orderi ng Physic efren: Shruti Yates Dictat ed By: Baron Batista MD Dictat ed Date/T kim: 7:50 pm Review ed By: Baron Batista MD Signed By: Baron Batista MD Signed Date/T kim: 7:50 pm Transc ribed By: LIZBETH Transc ribed Date/T kim: 7:50 pm Patien t Class: Outpat ient [facility] (Outpt Imaging) [address] [place] [address], [address], 08/06/2024 09:44:09 08/04/20 24 08/04/2024 XR, chest , 2 view No observ ation record ed. [email or web address] In-Office Order Internal Use Only DO Not Attach Compendium DO Not Attach Compendium, Do Not Delete/merge, [id number] 08/06/2024 12:25:00 08/11/20 24 08/04/2024 compl ete PFT w/ post [facility] hodil ator aren metry * No observ ation record ed. [email or web address] [facility] [address] [place], [address], 08/11/2024 15:38:49 08/11/20 24 08/04/2024 compl ete PFT w/ post [facility] hodil ator aren metry * No observ ation record ed. [email or web address] [facility] [address] [place], [address], 08/19/2024 09:53:29 08/25/20 24 08/25/2024 elect rocar diogr am No observ ation record ed. [email or web address] In-Office Order Internal Use Only DO Not Attach Compendium DO Not Attach Compendium, Do Not Delete/merge, [id number] 08/25/2024 11:33:52 08/25/20 24 elect rocar diogr am No observ ation record ed. [email or web address] In-Office Order Internal Use Only DO Not Attach Compendium DO Not Attach Compendium, Do Not Delete/merge, [id number] 08/25/2024 10:11:44 08/25/20 24 08/24/2024 CT, chest , w/ contr ast CT Chest W/ Contra st INDICA TION: Reason : CHEST; Clinic al Questi on(s): Other: TECHNI QUE: Helica l CT scan of the chest with IV contra st, format kolby in 3 planes . 75 cc of Omnipa que 300 was admini stered intrav enousl y. Weight -based protoc ol was perfor med using automa tic exposu re contro l. COMPAR JOSE M: Chest radiog raph dated Septem 2023. The FINDIN GS: Trial Justice view findin gs, lines and tubes: None. Trache a and airway s: Patent withou t eviden ce of trache al or endobr onchia l lesion . Lungs and pleura : Mild depend ent atelec tasis. A few puncta te millim etric pulmon reanna nodule s are noted, for exampl e 2 mm solid left upper lobe nodule (serie s 601 image 47), and a left lung base calcif ied granul silvana (image 75). Lungs are otherw ise clear. No effusi on or pneumo thorax . Medias tinum and perfecto: No mass or hemato ma. No medias tinal or hilar lympha denopa thy. No esopha geal abnorm ality. Heart: Heart is normal in size. No perica rdial effusi on. Mild donovan ry artery calcif icatio n. Aorta: No aortic aneury sm. Pulmon reanna arteri es: Normal calibe r. No eviden ce of pulmon reanna emboli sm on this study perfor med withou t angiog raphic techni que. Chest wall soft tissue s: No acute abnorm ality. Diaphr agm: Intact . Upper abdome n: Mild spleno megaly measur ing up to 13.2 cm (serie s 602 image 97). Bones: No acute abnorm ality. Mild degene rative change s in the spine. IMPRES FRANCISCO: 1. No acute abnorm ality. 2. A few micron odules measur ing up to 2 mm are noted, requir ing no dedica kolby follow -up in a low-ri sk indivi dual. If there are risk factor s for primar y pulmon reanna malign sofie, one year follow -up chest CT is consid ered option al accord ing to joe Hung hner guidel argelia. 3. Mild spleno megaly . WSN: [id number] Orderi ng Physic efren: Shruti Yates Dictat ed By: Benny Esparza MD Dictat ed Date/T kim: 4:57 pm Review ed By: Benny Esparza MD Signed By: Benny Esparza MD Signed Date/T kim: 4:57 pm Transc ribed By: LIZBETH Transc ribed Date/T kim: 4:47 pm Patien t Class: Outpat ient JOSHUA [facility] (Outpt Imaging) [address], [place], [address], 08/25/2024 17:40:54 08/25/20 24 08/25/2024 CT, chest , w/ contr ast No observ ation record ed. [email or web address] [facility] (Ct Scan) [address] [facility], [place], [address], 08/26/2024 13:39:24 10/05/20 24 11/03/2023 MAMMO , scree radha, digit al, bilat eral No observ ation record ed. [email or web address] Not Available 10/06 09:04:27 10/20/20 24 10/19/2024 XR, chest No observ ation record ed. [facility] (Medical Records) [address] [place], [address], 10/20/2024 10:36:09 10/28/20 24 10/28/2024 XR, chest No observ ation record ed. [facility] (Medical Records) [address] [place], [address], 10/28/2024 20:48:42 10/29/20 24 10/28/2024 XR, chest No observ ation record ed. [facility] (Medical Records) [address] [place], [address], 10/29/2024 13:01:51 10/29/20 24 10/29/2024 CT, angio gram, chest , w/ contr ast No observ ation record ed. [facility] (Medical Records) [address] [place], [address], 10/29/2024 17:02:39 12/19/11/04/2024 MAMMO , scree radha, digit al, bilat eral PROCED URE: MM Digita l Mammo Screen ing INDICA TION: Screen ing for breast cancer . No known palpab le abnorm alitie s. COMPAR JOSE M: Prior mammog ab most recent ly dated 2022. TECHNI QUE: Full-f ield digita l CC and MLO 3D tomosy nthesi s images of both breast s were acquir ed. Comput er-aid ed detect ion (CAD) was utiliz ed in the interp retati on of this study. DENSIT Y: There are scatte red areas of fibrog landul ar densit y. FINDIN GS: Only seen on the mediol ateral obliqu e view is a single view asymme try in the superi or left breast which remain s unchan ged, but now with questi onable mendez ectura l distor tion. Furthe r evalua tion with spot compre ssion and ML views is recomm ended. Additi onal target ed ultras ound scan may be requir ed. No suspic ious findin gs are seen in the right breast . IMPRES FRANCISCO: Additi onal imagin g recomm ended. We will recall the michael t. RECOMM ENDATI ON: Diagno stic 3D tomosy nthesi s of the left breast with schedu led ultras ound BI-RAD S: 0 Incomp lete - Need Additi onal Imagin g Evalua tion. Lay letter mailed to michael gray WSN: [id number] Orderi Physic efren: Shruti Yates Dictat ed By: Olga Lidia Rodriguez MD Dictat ed Date/T kim: 11:10 am Review ed By: Olga Lidia Rodriguez MD Signed By: Olga Lidia Rodriguez MD Signed Date/T kim: 11:10 am Transc ribed By: LIZBETH Transc riptio n Date/T kim: 10:59 am Birads : Michael gray Class: Outpat ient [email or web address] [facility] (Outpt Imaging) [address] [place] [address], [address], 11/05/2024 09:17:42 11/04/20 24 11/04/2024 MAMMO , scree radha, bilat eral No observ ation record ed. [email or web address] [address], [place], [address], 11/04/2024 13:08:40 11/16/20 24 11/16/2024 mm digit al mammo unila t left PROCED URE: MM Digita l Mammo Unilat Left INDICA TION: Callba ck for left breast asymme try. COMPAR JOSE M: Prior mammog ab, most recent ly 2023. TECHNI QUE: Digita l diagno stic mammog gene consis ting of spot compre ssion MLO and full field ML tomosy nthesi s images . Comput er-aid ed detect ion (CAD) was utiliz ed in the interp retati on of this study. DENSIT Y: There are scatte red areas of fibrog landul ar densit y. FINDIN GS: The previo usly questi oned asymme try efface s with additi onal views compat ible with summat ion artifa ct. Parenc hymal patter n is simila r to multip le prior mammog ab. There is no suspic ious mass, mendez ectura l distor tion, or suspic ious microc alcifi cation s to sugges t malign sofie. IMPRES FRANCISCO: No mammog raphic eviden ce of malign sofie. RECOMM ENDATI ON: Annual mammog raphic screen ing BI-RAD S: 1 (Negat anson) Lay letter mailed to patiporsche t WSN: [id number] Orderi ng Physic efren: Shruti Yates Dictat ed By: Kelle Kim MD Dictat ed Date/T kim: 11:24 am Review ed By: Kelle Kim MD Signed By: Kelle Kim MD Signed Date/T kim: 11:24 am Transc ribed By: CSB Transc riptio n Date/T kim: 11:23 am Birads : Patien t Class: Outpat ient JOSHUA [facility] (Outpt Imaging) [address], [place], [address], 11/16/2024 18:25:23 11/16/20 24 11/16/2024 MAMMO , scree radha, digit al, unila teral No observ ation record ed. [email or web address] [facility] [address] [place], [address], 11/16/2024 11:37:42 12/06/19 25 12/02/2024 NM, myoca rdial perfu francisco scan No observ ation record ed. [facility] (Medical Records) [address] [place], [address], 12/07/2024 06:21:05 Result Notes None recorded. Problems Name Problem SNOMED Code Status Onset Date Resolution Date Notes Provider Name and Address Organization Details Recorded Time Rosacea 531405281 Active PATSY Coon [facility] 3 10:55:09 Gastroeso phageal reflux disease 857720160 Active PATSY Coon [facility] 3 10:55:09 Hypothyro idism 81977806 Active PATSY Coon [facility] 3 10:55:09 Labile hypertens ion due to being in a clinical environme nt 196323569 Active PATSY Coon [facility] 3 10:55:09 Hyperlipi demia 12927472 Active PATSY Coon [facility] 3 10:55:09 Fatigue 84437285 Completed 10/04/2023 Nii Yates MD [address] [facility] [address] [facility] [address], [facility] 09:05:45 Vitamin D deficienc y 66644800 Active Dorene Sorensen [place] null, [facility] 3 10:55:09 Fracture of phalanx of foot 72206545 Completed 11/19/2018 Genet moulton null, [facility] 9 14:39:03 Tubular adenoma 327944163 Active 2019 Dorene Sorensen [place] null, [facility] 3 10:55:09 Serum creatinin e above reference range 015974965 Completed 201910/04/2023 Nii Yates MD [address] [facility] [address], [place], [address], [facility] 09:06:18 Hypertens anson renal disease 13470706 Active 2020 Dorene Sorensen [place] null, [facility] 3 10:55:09 Chronic kidney disease stage 3A 687011121 Active 2021 Dorene Sorensen [place] null, [facility] 3 10:55:09 Kidney stone 75774953 Completed 202210/05/2024 Nii Yates MD [address] [facility] [address], [place], [address], [facility] 4 10:32:59 COVID-19 893254036 Completed 202210/04/2023 Nii Yates MD [address], [place], [address], [place] [facility] 3 09:05:39 Laryngiti s 33442078 Completed 202210/04/2023 Nii Yates MD [address] [facility] [address], [place], [address], [facility] 09:06:07 History of SARS-CoV- 2 994525577797 348784 Active 2022 Nii Yates MD [address], [place], [address], [facility] 09:05:33 Morbid obesity 952616771 Active 2022 Nii Yates MD [address], [place], [address], [facility] 3 09:22:38 Uric acid renal calculus 563062535 Active 2023 Nii Yates MD [address], [place], [address], [facility] 4 10:32:16 History of urinary stone 604480521 Active 2023 Nii Yates MD [address], [place], [address], [facility] 4 10:32:56 Prediabet es 043897351 Active 2023 Nii Yates MD [address], [place], [address], [facility] 4 09:53:05 Restricti ve lung disease 32060073 Active 2023 Nii Yates MD [address], [place], [address], [facility] 4 07:24:24 Moderate persisten t asthma 107033760 Active 2023 Nii Yates MD [address], [place], [address], [facility] 4 07:24:37 Nodule of lung 691126917 Active 2023 Nii Yates MD [address], [place], [address], [facility] 4 07:25:47 Atrial flutter 5982923 Active 2023 Janel Sandoval PA-C [address], [facility] [address], [facility] 4 10:39:19 Asthma 641520029 Active 2024 Nii Yates MD [address], [place], [address], [facility] 5 09:11:37 Pulmonary hypertens ion 51039261 Active 2024 Nii Yates MD [address], [facility] [address], [facility] 5 09:11:46 Problem Notes None recorded. Procedures Surgical History Date Name Laterality Status Provider Name and Address Organization Details Recorded Time 11/16/20 24 mammography of left breast completed Bronwyn starks [place] [facility] 11/16/2024 11:38:32 11/04/20 24 Most Recent Mammogram completed [facility] 11/04/2024 13:06:14 11/04/20 24 Mammogram Screening completed [facility] 11/04/2024 13:05:29 10/05/20 24 Advanced Care Planning completed Nica Gray [facility] 10/18/2024 10:50:18 09/23/20 24 arthroplasty of the carpometacarpal joint of the thumb completed Bronwyn starks [place] [facility] 10/05/2024 10:14:05 03/29/20 24 ureterorenoscopy with fragmentation and removal of calculus of kidney completed Bronwyn starks [place] [facility] 05/24/2024 10:39:56 10/04/20 23 Advanced Care Planning completed Nii Yates MD [address], [place], [address], [facility] 10/04/2023 08:28:24 12/19/19 23 Date of Last Pap Smear completed Annalee Starren [facility] 10/06/2023 16:01:08 08/28/20 22 Advanced Care Planning completed Nica Gray [facility] 08/29/2022 14:14:04 08/10/20 21 Advanced Care Planning completed Nii Yates MD [address], [place], [address], [facility] 08/10/2021 08:21:36 10/30/20 20 Most Recent Bone Density completed Bronwyn starks [place] [facility] 08/28/2022 13:15:10 10/30/20 20 Dxa bone density study completed Bronwyn starks MA [facility] 08/28/2022 13:15:16 08/07/20 20 Six-Item Cognitive Test completed Bronwyn starks [place] [facility] 08/07/2020 13:27:37 07/04/20 20 Date of Last Colonoscopy completed Amelia Arzate [facility] 07/05/2020 10:04:05 07/04/20 20 Colonoscopy completed Bronwyn starks [place] [facility] 08/07/2020 13:22:40 11/27/19 19 repair of umbilical hernia completed Naima Yee [facility] 01/18/2019 13:05:42 06/17/20 18 procedure on tongue completed Jason Guevara MD [address] [facility] [address], [place], [address], [facility] 01/18/2019 13:47:45 05/18/20 14 excision of mucous cyst of finger completed Bronwyn starks [place] [facility] 08/10/2021 09:57:19 04/07/20 12 arthroscopic shoulder decompression completed Bronwyn starks [place] [facility] 08/28/2022 13:13:52 11/17/18 98 Endometrial Ablation completed Bronwyn starks MA [facility] 08/28/2022 13:03:27 03/21/19 92 delivery completed Bronwyn starks [place] [facility] 08/28/2022 13:14:33 01/12/19 85 delivery completed Bronwyn starks MA [facility] 08/28/2022 13:14:29 10/07/19 81 delivery completed Bronwyn starks [place] [facility] 08/28/2022 13:14:44 Lig div&strpg short saph vn completed Kristie Lianna [facility] 10/02/2021 11:19:55 Anesth shoulder procedure completed Kristie Dsouza [facility] 10/02/2021 11:19:55 Imaging Results Imaging Date Name Status LastModified by Organization Details LastModified Time 08/04/2024 XR, chest, 2 view completed [facility] (Outpt Imaging) [address] [place], [address], 08/06/2024 09:44:09 08/04/2024 XR, chest, 2 view completed [email or web address] In-Offi ce Order Internal Use Only DO Not Attach Compendium DO Not Attach Compendium, Do Not Delete/merge, [id number] 08/06/2024 12:25:00 08/04/2024 complete PFT w/ post bronchodilator spirometry* completed [address] [facility] [address] [place], [address], 08/11/2024 15:38:49 08/04/2024 complete PFT w/ post bronchodilator spirometry* completed [email or web address] [facility] [address] [place], [address], 08/19/2024 09:53:29 08/25/2024 electrocardiogram completed [email or web address] In-Offi ce Order Internal Use Only DO Not Attach Compendium DO Not Attach Compendium, Do Not Delete/merge, [id number] 08/25/2024 11:33:52 08/25/2024 electrocardiogram completed [email or web address] In-Offi ce Order Internal Use Only DO Not Attach Compendium DO Not Attach Compendium, Do Not Delete/merge, [id number] 08/25/2024 10:11:44 08/24/2024 CT, chest, w/ contrast completed [facility] (Outpt Imaging) [address] , [place], [address], 08/25/2024 17:40:54 08/25/2024 CT, chest, w/ contrast completed [email or web address] [facility] (Ct Scan) [address] [place], [address], 08/26/2024 13:39:24 11/03/2023 MAMMO, screening, digital, bilateral completed [email or web address] Information not available 10/06/2024 09:04:27 10/19/2024 XR, chest completed [facility] (Medical Records) [address] [place], [address], 10/20/2024 10:36:09 10/28/2024 XR, chest completed [facility] (Medical Records) [address] [place], [address], 10/28/2024 20:48:42 10/28/2024 XR, chest completed [facility] (Medical Records) [address] [place], [address], 10/29/2024 13:01:51 10/29/2024 CT, angiogram, chest, w/ contrast completed [facility] (Medical Records) [address] [place], [address], 10/29/2024 17:02:39 11/04/2024 MAMMO, screening, digital, bilateral completed [email or web address] [facility] (Outpt Imaging) [address] [place], [address], 11/05/2024 09:17:42 11/04/2024 MAMMO, screening, bilateral completed [email or web address] [facility] [address], [place], [address], 11/04/2024 13:08:40 11/16/2024 mm digital mammo unilat left completed [facility] (Outpt Imaging) [address], [place], [address], 11/16/2024 18:25:23 11/16/2024 MAMMO, screening, digital, unilateral completed [email or web address] [facility] [address] [place], [address], 11/16/2024 11:37:42 12/02/2024 NM, myocardial perfusion scan completed [facility] (Medical Records) [address] [place], [address], 12/07/2024 06:21:05 Procedure Notes None recorded. Medical Equipment None Reported. Allergies Allergen ID Allergen Name Allergen Category Reaction Reaction Severity Criticality Documentation Date Start Date Code Code System Note Provider Name and Address Organization Details Recorded Time 55873 amoxicill in medicatio n Not available Not available Not available 09/26/20162020 723 RxNorm Delmis foote [facility] 10:49:15 32688 latex environme nt,medica tion other Not available Not available 11/19/20182020 08253 91 RxNorm Delmis foote [facility] 10:49:15 18809 ciproflox acin medicatio n hives Not available Not available 09/10/20212020 2551 RxNorm Delmisbrynn foote [facility] 10:49:15 Medications Name Sig Start Date Stop Date Status Note LastModified by Organization Details LastModified Time naproxen cre 10% 1 applicati on daily, as needed active Not Available Not Available No t Available losartan 50 mg tablet Take 1 tablet every day by oral route for 90 days. active Not Available Not Available No t Available doxycyclin e hyclate 100 mg capsule 11/04 completed Not Available Not Available Not Available Saline Mist 0.65 % nasal spray aerosol Take 1 spray every day by nasal route in the morning for 30 days. 2023 active Not Available Not Available Not Avai lable tizanidine 2 mg tablet 11/19 completed Not Available Not Available Not Available clindamyci n HCl 300 mg capsule TAKE 1 CAPSULE BY MOUTH EVERY 8 HOURS FOR 10 DAYS 09/10 completed Not Available Not Available Not Available fluconazol e 150 mg tablet TAKE 1 TABLET BY MOUTH ONCE FOR 1 DAY 09/10 completed Not Available Not Available Not Available benzonatat e 200 mg capsule TAKE 1 CAPSULE BY MOUTH THREE TIMES A DAY FOR 10 DAYS 08/25 completed Not Available Not Available Not Available fluconazol e 200 mg tablet TAKE 1 TABLET BY MOUTH NOW, REPEAT IN 48 HOURS 03/22 completed Not Available Not Available Not Available phenazopyr idine 200 mg tablet TAKE 1 TABLET (200 MG TOTAL) BY MOUTH 3 TIMES A DAY IN THE MORNING , MID-DAY, AND EARLY EVENING 05/24 completed Not Available Not Available Not Available cimetidine 800 mg tablet Take 1 tablet every day by oral route at bedtime. 11/19 completed Not Available Not Available Not Available amlodipine 5 mg tablet TAKE 1 TABLET BY MOUTH 1 TIME EACH DAY. 11/04 completed Not Available Not Available Not Available omeprazole 40 mg capsule,de layed release TAKE 1 CAPSULE BY MOUTH EVERY DAY active Not Available Not Available No t Available aspirin 81 mg tablet,del ayed release Take 1 {tbl} by oral route. 09/10 completed Not Available Not Available Not Available levothyrox ine 75 mcg tablet TAKE 1 TABLET BY MOUTH EVERY DAY active Not Available Not Available No t Available oxycodone- acetaminop hen 5 mg-325 mg tablet TAKE 1 TABLET BY MOUTH EVERY 4 TO 6 HOURS NEEDED FOR SEVERE PAIN MAX DAILY AMOUNT:6 TABLETS 10/05 completed Not Available Not Available Not Available magnesium oxide 400 mg (241.3 mg magnesium) tablet Take 1 tablet every day by oral route. 09/26 completed Not Available Not Available Not Available methocarba mol 750 mg tablet TAKE 1 TAB TWICE A DAY NEEDED MUSCLE SPASM 09/10 completed Not Available Not Available Not Available pravastati n 10 mg tablet Take 1 tablet every day by oral route at bedtime for 90 days. active Not Available Not Available No t Available tamsulosin 0.4 mg capsule TAKE 1 CAPSULE BY MOUTH EVERY DAY 05/24 completed Not Available Not Available Not Available amlodipine 5 mg-benazep ril 10 mg capsule Take 1 capsule every day by oral route for 90 days. 09/04 completed Not Available Not Available Not Available amlodipine 5 mg-benazep ril 20 mg capsule TAKE 1 CAPSULE BY MOUTH EVERY DAY 10/02 completed Not Available Not Available Not Available potassium citrate ER 10 mEq (1,080 mg) tablet,ext ended release Take 2 tablets 3 times a day by oral route for 90 days. 2023 active Not Available Not Available Not Avai lable levothyrox ine 50 mcg tablet Take 1 tablet every day by oral route for 90 days. 07/26 completed Not Available Not Available Not Available zinc 60 mg tablet Take 1 tablet every day by oral route. 09/10 completed Not Available Not Available Not Available lisinopril 10 mg tablet TAKE 1 TABLET BY MOUTH EVERY DAY 08/25 completed Not Available Not Available Not Available triamcinol one acetonide 0.025 % topical ointment APPLY THIN LAYER TO LIPS UP TO THREE TIMES DAILY NEEDED active Not Available Not Available No t Available docusate sodium 100 mg capsule TAKE 1 CAPSULE BY MOUTH TWICE A DAY 08/25 completed Not Available Not Available Not Available diltiazem CD 120 mg capsule,ex tended release 24 hr Take 1 capsule every day by oral route for 30 days. 2023 active new onset a -flutt er Not Available Not Available Not Available desonide 0.05 % lotion Apply 1 mL every day by topical route as needed for 15 days. 10/13 completed Not Available Not Available Not Available lisinopril 5 mg tablet Take 1 tablet every day by oral route for 30 days. active Not Available Not Available No t Available mupirocin 2 % topical ointment APPLY TO AFFECTED AREA 3 TIMES DAILY FOR 7 DAYS 10/04 completed Not Available Not Available Not Available clobetasol 0.05 % topical ointment Apply 1 applicati on every day by topical route as needed for 21 days. 10/13 completed Not Available Not Available Not Available albuterol sulfate HFA 90 mcg/actuat ion aerosol inhaler INHALE 2 PUFFS INTO THE LUNGS EVERY 4 HOURS NEEDED FOR 30 DAYS active Not Available Not Available No t Available fluticason e propionate 50 mcg/actuat ion nasal spray,susp ension SPRAY 1 SPRAY BY INTRANASA L ROUTE EVERY DAY 08/25 completed Not Available Not Available Not Available clotrimazo le 1 % topical cream APPLY TO AFFECTED AREA TWICE A DAY FOR 14 DAYS 10/04 completed Not Available Not Available Not Available betamethas one dipropiona te 0.05 % lotion APPLY TWICE A DAY NEEDED TO ITCHY SKIN ON SCALP 11/04 completed Not Available Not Available Not Available gentamicin 0.1 % topical ointment APPLY TO EXTERNAL EAR TWICE A DAY DAILY FOR 1 WEEK 08/10 completed Not Available Not Available Not Available nabumetone 500 mg tablet TAKE 1 TABLET BY MOUTH TWICE A DAY WITH MEALS 08/10 completed Not Available Not Available Not Available tobramycin 0.3 %-dexameth asone 0.1 % eye drops,susp ension PLACE 4 DROPS INTO AFFECTED EAR TWICE A DAY X 7 DAYS 08/10 completed Not Available Not Available Not Available oxycodone 5 mg tablet TAKE 1 TABLET BY MOUTH FOUR TIMES A DAY EVERY 6 HOURS NEEDED FOR SEVERE PAIN MAX 20 MG/DAY 05/24 completed Not Available Not Available Not Available neomycin 3.5 mg/g-polym yxin B 10,000 unit/g-dex ameth 0.1 % eye oint APPLY TO AFFECTED LID AT BEDTIME 05/24 completed Not Available Not Available Not Available coenzyme Q10 100 mg capsule Take 1 capsule every day by oral route. 09/26 completed Not Available Not Available Not Available nitrofuran toin monohydrat e/macrocry stals 100 mg capsule 10/04 completed Not Available Not Available Not Available metronidaz ole 1 % topical gel Apply 1 applicati on every day by topical route as needed for 30 days. 10/13 completed Not Available Not Available Not Available Calcium 500 1 po daily 09/26 completed Not Available Not Available Not Available mometasone 0.1 % topical solution APPLY UP TO TWICE DAILY WITH A Q-TIP UP TO 2 WEEKS ON, 1 WEEK OFF, TO PREVENT ITCH active Not Available Not Available No t Available peg 3350-elect rolytes 236 gram-22.74 gram-6.74 gram-5.86 gram solution active Not Available Not Available Not Available diclofenac 1 % topical gel APPLY TWO GRAMS TO HANDS AND FEET UP TO 4 TIMES A DAY NEEDED 11/04 completed Not Available Not Available Not Available melatonin 5 mg tablet TAKE 1 TABLET NEEDED BY ORAL ROUTE AT DINNER FOR 90 DAYS. 08/28 completed Not Available Not Available Not Available potassium citrate ER 15 mEq (1,620 mg) tablet,ext ended release TAKE 2 TABLETS BY MOUTH TWICE A DAY 10/05 completed Not Available Not Available Not Available Prevnar 13 (PF) 0.5 mL intramuscu lar syringe PHARMACY ADMINISTE RED 08/07 completed Not Available Not Available Not Available Probiotic 1 po daily 09/26 completed Not Available Not Available Not Available Vitamin D3 50 mcg (2,000 unit) capsule Take 1 capsule every day by oral route. active Not Available Not Available No t Available Eliquis 5 mg tablet TAKE 1 TABLET BY MOUTH TWICE A DAY active new onset a-flut ter Not Available Not Available Not Available Eliquis 2.5 mg tablet TAKE 1 TABLET BY MOUTH TWICE A DAY *DO NOT USE VOLTAREN GEL 10/05 completed Not Available Not Available Not Available Relyyks 4 %-5 % topical patch active Not Available Not Available Not Available ivermectin 1 % topical cream APPLY ONCE DAILY TO AFFECTED AREA FOR ROSACEA active Not Available Not Available No t Available Pazeo 0.7 % eye drops Instill 1 drop every day by ophthalmi c route in the morning for 30 days. 11/19 completed Not Available Not Available Not Available LevelUp 1 po daily 09/26 completed Not Available Not Available Not Available Move Free Ultra Triple Action (boron) 40 mg-5 mg-3.3 mg tablet Take 1 tablet every day by oral route. 10/04 completed Not Available Not Available Not Available Flonase Sensimist 27.5 mcg/actuat ion nasal spray,susp ension Take 1 spray every day by nasal route at bedtime for 30 days. 2023 active Not Available Not Available Not Avai lable Fluzone Quad (PF ) 60 mcg(15 mcgx4)/0.5 mL intramuscu lar syringe 11/19 completed Not Available Not Available Not Available Plenvu 140 gram-9 gram-5.2 gram powder packs 08/07 completed Not Available Not Available Not Available Wixela Inhub 250 mcg-50 mcg/dose powder for inhalation active Not Available Not Available N ot Available Fluzone High-Dose Quad (PF) 240 mcg/0.7 mL IM syringe TO BE ADMINISTE RED BY PHARMACIS T FOR IMMUNIZAT ION 08/07 completed Not Available Not Available Not Available Flowflex COVID-19 Antigen Home Test kit USE DIRECTED 09/10 completed Not Available Not Available Not Available Paxlovid 150 mg-100 mg tablets in a dose pack (Renal Dose) TAKE 2 TABLETS BY MOUTH TWICE A DAY X 5 DAYS 10/04 completed Not Available Not Available Not Available Vitals Date Recorded Body height Body mass index (BMI) Body weight Heart rate Oxygen saturation Oxygen saturation in Arterial blood by Pulse oximetry Body temperature Systolic blood pressure Diastolic blood pressure Provider Name and Address Organization Details Last Updated DateTime 4 166.37 cm 42.6 kg/m2 241982. 02 g 70 /min 98 % 98 % 98.1 [degF] 131 mm[Hg] 76 mm[Hg] Bronwyn robin [facility] 4 13:32:05 Date Recorded Body height Body mass index (BMI) Body weight Heart rate Oxygen saturation Oxygen saturation in Arterial blood by Pulse oximetry Body temperature Systolic blood pressure Diastolic blood pressure Provider Name and Address Organization Details Last Updated DateTime 4 166.37 cm 43.2 kg/m2 684732. 89 g 57 /min 98 % 98 % 98.8 [degF] 145 mm[Hg] 73 mm[Hg] Amita Quintana LPN [facility] 4 09:51:51 Date Recorded Systolic blood pressure Diastolic blood pressure Provider Name and Address Organization Details Last Updated DateTime 08/25/2024 134 mm[Hg] 76 mm[Hg] MARIA DOLORES CAREY [address] [address], [place], [address], [facility] 08/25/2024 10:18:25 Date Recorded Body height Body mass index (BMI) Body weight Heart rate Oxygen saturation Oxygen saturation in Arterial blood by Pulse oximetry Body temperature Systolic blood pressure Diastolic blood pressure Systolic blood pressure Diastolic blood pressure Provider Name and Address Organization Details Last Updated DateTime 4 166.37 cm 43.1 kg/m2 630766. 79 g 67 /min 97 % 97 % 98.3 [degF] 146 mm[Hg] 77 mm[Hg] 136 mm[Hg] 68 mm[Hg] Bronwyn robin MA [facility] 4 10:45:55 Date Recorded Body height Body mass index (BMI) Body weight Oxygen saturation Oxygen saturation in Arterial blood by Pulse oximetry Heart rate Body temperature Systolic blood pressure Diastolic blood pressure Provider Name and Address Organization Details Last Updated DateTime 4 166.37 cm 41.9 kg/m2 895631. 85 g 99 % 99 % 69 /min 98.4 [degF] 123 mm[Hg] 79 mm[Hg] Nicole Bess MA [facility] 4 10:27:10 Social History Question Answer Notes LastModified by Organizat ion Details LastModified Time Tobacco Smoking Status [facility] 14:01:45 Do You Have An Advance Directive? Yes HCP; Per Patient Information not available 08/28/2022 What Is Your Level Of Alcohol Consumption? None Information not available 10/02/2021 Is Blood Transfusion Acceptable In An Emergency? Yes Information not available 03/20/2016 What Is Your Level Of Caffeine Consumption? None Information not available 10/02/2021 How Much Tobacco Do You Chew? None Information not available 03/20/2016 Are You Currently Employed? No Retired As Of 05/16/2017 Information not available 10/13/2017 What Type Of Diet Are You Following? REGULAR Information not available 10/02/2021 Which Illicit Or Recreational Drugs Have You Used? 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 With Others (Dez) And Son Information not available 08/28/2022 Do You Take Precautions To Prevent Distracted Driving? Yes Information not available 03/20/2016 How Often Do You Need To Have Someone Help You When You Read Instructions, Pamphlets, Or Other Written Material From Your Doctor Or Pharmacy? Never Information not available 03/20/2016 Have You Served In The ? No Information not available 09/26/2016 Have You Or Anyone In Your Household Had Any Of The Following Symptoms In The Last 14 Days: Sore Throat, Cough, Chills, Body Aches For Unknown Reasons, Shortness Of Breath For Unknown Reasons, Loss Of Smell, Loss Of Taste, Fever At Or Greater Than 100 Degrees Fahrenheit? No Information not available 08/07/2020 Are You Or Anyone In Your Household A Health Care Provider Or Emergency Responder? No Information not available 08/07/2020 To The Best Of Your Knowledge Have You Been In Close Proximity To Any Individual Who Tested Positive For COVID-19? Yes Information not available 08/28/2022 *AWV ONLY* Are You Presently Prescribed Opioid Medication By PCP Or Specialist? If YES -Provider Assess The Benefit For Other, Non-opioid Pain Therapies Instead, Even If The Patient Does Not Have OUD But Is Possibly At Risk. No Information not available 08/10/2021 Have You Recently Traveled To A COVID-19 High Risk Area Or Gathering In The Last 10 Days? No Information not available 08/10/2021 What Was The Date Of Your Most Recent Tobacco Screening? 10/05/2024 Information not available 10/05/2024 How Many Children Do You Have? 3 Aramis Willis, And Temi Information not available 08/28/2022 Do You Use Protection During Sex? No Information not available 03/20/2016 Do You Use Your Seat Belt Or Car Seat Routinely? Yes Information not available 10/02/2021 Seat Belts Used Routinely Yes Information not available 08/28/2022 Are You Sexually Active? Yes Information not available 03/20/2016 Smoke Alarm In Home Yes Information not available 08/28/2022 Do You Have Smoke And Carbon Monoxide Detectors In Your Home? Yes Information not available 10/02/2021 At What Age Did You Start Smoking Tobacco? 0 Information not available 08/28/2022 Are You Passively Exposed To Smoke? No Information not available 03/20/2016 Do You Or Have You Ever Used Smokeless Tobacco? Never Used Smokeless Tobacco Information not available 08/28/2022 How Much Tobacco Do You Smoke? No Information not available 03/20/2016 Do You Use Any Illicit Or Recreational Drugs? No Information not available 08/28/2022 Do You Use Sunscreen Routinely? Yes Information not available 03/20/2016 How Many Years Have You Smoked Tobacco? 0 Information not available 08/28/2022 Do You Or Have You Ever Used Any Other Forms Of Tobacco Or Nicotine? No Information not available 08/28/2022 Sex: Unknown Functional Status Question Answer Note LastModified by Organizat ion Details LastModified Time Are you able to walk? YESWOREST Information not available 08/28/2022 Are you able to care for yourself? Yes Information not available 03/20/2016 What is your exercise level? Moderate walking 5 x week Information not available 03/20/2016 Mental Status None recorded. Family History Relationship Description Onset Age of this Age Resolved Age Notes LastModified by Organization Details LastModified Time Mother Primary malignant neoplasm of colon 70 87 [email or web address] Not available 2015 14:22:55 Mother Essential hypertension [email or web address] s Not available 08/28/2022 13:03:25 Mother Diabetes mellitus [email or web address] Not available 2015 14:22:55 Mother Arthritis [email or web address] s Not available 08/28/2022 13:03:25 Mother Malignant tumor of colon [email or web address] s Not available 08/28/2022 13:03:25 Mother Obesity [email or web address] s Not available 08/28/2022 13:03:25 Father Vascular dementia 76 [email or web address] s Not available 08/28/2022 13:03:25 Father Obesity [email or web address] s Not available 08/28/2022 13:03:25 Brother Squamous cell carcinoma 57 Skin [email or web address] s Not available 08/28/2022 13:03:25 Maternal Aunt Malignant tumor of lung phelmuth Not available 2015 14:22:55 Maternal Aunt Obesity [email or web address] tto s Not available 08/28/2022 13:03:25 Medical History Condition Response Varicose Veins Y Obesity Y Arthritis Y Reflux/GERD Y Acid Reflux (GERD) Y Hypertension Y Chicken Pox Y Gynecological History Statement/Question Response Date of Last Pap Smear 12/19/2022 Date of Last Colonoscopy 07/04/2020 Most Recent Mammogram 11/04/2024 Most Recent Bone Density 10/30/2020 Obstetrics History GPAL:G 0 P 0 0 0 0 Immunizations Vaccine Type Date Status Note Provider Nam e and Address Organization Details Recorded Time Tdap 2 completed Delmis foote [facility] 08/07/2022 13:59:27 zoster live 4 completed Delmis foote [facility] 08/07/2022 13:59:27 Influenza, split virus, trivalent, preservative 6 completed Delmis foote [facility] 08/07/2022 13:59:27 Influenza, split virus, quadrivalent, PF 8 completed PATSY Mancilla [facility] 08/07/2023 09:52:25 zoster recombinant 9 completed PATSY Mancilla [facility] 08/07/2023 09:52:25 Influenza, split virus, quadrivalent, PF 9 completed PATSY Mancilla [facility] 08/07/2023 09:52:25 Influenza, high-dose, trivalent, PF 0 completed Dlemis foote, [facility] 08/07/2022 13:59:27 [facility]neumococcal conjugate PCV 13 [facility] 13:59:27 COVID-19, mRNA, LNP-S, PF, 30 mcg/0.3 mL dose 1 completed PATSY Mancilla, [facility] 08/07/2023 09:52:25 COVID-19, mRNA, LNP-S, PF, 30 mcg/0.3 mL dose 1 [facility] 09:52:25 Influenza, high-dose, quadrivalent, PF 1 completed PATSY Mancilla, [facility] 08/07/2023 09:52:25 pneumococcal polysaccharide PPV23 1 [facility] 13:59:27 COVID-19, mRNA, LNP-S, PF, 30 mcg/0.3 mL dose 1 [facility] 09:52:25 Influenza, split virus, quadrivalent, PF 7 completed PATSY Mancilla, [facility] 08/07/2023 09:52:25 zoster recombinant 2 completed PATSY Mancilla, [facility] 08/07/2023 09:52:25 COVID-19, mRNA, LNP-S, PF, 30 mcg/0.3 mL dose, pearl-sucrose 2 [facility] 09:52:25 Influenza, high-dose, quadrivalent, PF 2 [facility] 10:07:35 Pneumococcal conjugate PCV20, polysaccharide [id number] conjugate, adjuvant, PF 2 [facility] 09:52:25 COVID-19, mRNA, LNP-S, bivalent, PF, 30 mcg/0.3 mL dose 2 [facility]23 09:52:25 Influenza, split virus, quadrivalent, preservative 6 [facility]07/[facility]23 09:52:25 Influenza, split virus, quadrivalent, PF 4 completed PATSY Mancilla [facility] 08/07/2023 09:52:25 RSV, recombinant, protein subunit RSVpreF, adjuvant reconstituted, 0.5 mL, PF 3 completed PATSY Mancilla [facility] 08/07/2023 10:04:15 COVID-19, mRNA, LNP-S, PF, 30 mcg/0.3 mL dose 3 completed PATSY Mancilla [facility] 08/07/2023 10:07:57 Influenza, adjuvanted, quadrivalent, PF 3 completed PATSY Coon [facility] 09/10/2023 10:54:09 Influenza, high-dose, quadrivalent, PF 2 [facility] 10:54:09 COVID-19, mRNA, LNP-S, PF, pearl-sucrose, 30 mcg/0.3 mL 3 [facility]10[facility]23 10:54:09 Td(adult) unspecified formulation 3 completed Nii Yates MD [address] [address], [place], [address], [facility] [place] 10:55:35 COVID-19, mRNA, LNP-S, PF, 50 mcg/0.5 mL 4 completed Delmis foote, [facility] 08/13/2024 11:29:35 Influenza, high-dose, trivalent, PF 4 completed Bronwyn Cardenas [place] dary, [facility] 08/03/2024 14:25:07 Past Encounters Encounter ID Performer Location Encounter Start Date Encounter Closed Date Diagnosis/Indication Diagnosis SNOMED-CT Code Diagnosis ICD10 Code Diagnosis Note [id number] Jason Guevara MD Main Office [address] [id number] 03/20/2016 13:27:10 03/20/2016 15:02:18 Hypothyroidism 53673941 E03.9 Labile hyp ertension due to being in a clinical environment 421955452 I15.8 Hyperlipidemia 64785017 E78.0 Fatigue 01836189 R53.83 Vitamin D deficiency 347 81411 E55.9 Gastroesop hageal reflux disease 566201930 K21.9 Body mass index 40+ - severely obese 280455993 Z68.41 [id number] Jason Guevara MD Main Office [address] [address] 09/26/2016 15:10:11 09/26/2016 16:42:07 Adult health examination 415115477 Z00.00 Varicose v eins of lower extremity 36270645 I83.893 Body mass index 40+ - severely obese 978840232 Z68.41 Hypothyroidism 17302701 E03.9 Gastroesop hageal reflux disease 863923707 K21.9 [id number] Leif villatoro Main Office [address] [address] 07/12/2017 09:37:53 07/12/2017 10:10:36 Needs influenza immunization 021203766 Z23 [id number] Jason Guevara MD Main Office [address] [place] [address] 10/13/2017 13:26:17 10/13/2017 14:47:58 Adult health examination 020858997 Z00.00 Hypothyroidism 00568254 E03.9 Essential hypertension 85811695 I10 Stable off of medication s Hyperlipidemia 13996365 E78.2 Gastroesop hageal reflux disease 758196669 K21.9 Body mass index 40+ - severely obese 270503528 E66.01 Z68.41 [id number] Nica Gray Main Office [address] [address] [place] [address] 11/19/2018 13:36:04 11/19/2018 14:56:16 Pre-surgery evaluation 814214344 Z01.818 Pt had labs recently and will get results. Advised to hold aspirin and relafen 1 week prior. Noble score 0.1% with most risk from morbid obesity. BP normal at this time, pt able to do at least 4 METS Body mass index 40+ - severely obese 316485323 E66.01 Z68.41 Continue weight loss, on WW plan now. Discussed adding different exercises including resistance training. Discuss core exercises with surgeon Umbilical hernia 2264172 07 K42.9 [id number] Jason Guevara MD Main Office [address] [address] [place] [address] 01/18/2019 12:54:54 01/18/2019 14:19:05 Adult health examination 569238793 Z00.00 Screening for malignant neoplasm of breast 433521601 Z12.39 Essential hypertension 57896756 I10 Stable off of medication s Gastroesop hageal reflux disease 605110308 K21.9 Hypothyroidism 85383604 E03.9 Hyperlipidemia 61893451 E78.2 Body mass index 40+ - severely obese 200057072 E66.01 Z68.41 Hepatitis C screening 41 7896736 Z11.59 Plantar fasciitis 761547 003 M72.2 Vitamin D deficiency 347 63346 E55.9 [id number] Shayy rosales Main Office [address] [address] [place] [address] 01/27/2019 13:51:24 01/27/2019 14:47:01 Allergic reaction 610952672 T78.40XA area of first shingrix vaccine with redness, warm and itching.. no streaking avoid shingrix [id number] Jorden Sandoval PA-C Main Office [address] [address] [place] [address] 07/26/2019 10:21:01 07/26/2019 11:28:39 Thrombophlebitis of superficial veins of lower extremity 71630826 I80.01 rec cont comp socks, use warm washcloth for a few minutes few times/day, and increase nabumetone to 1000mg bid x few days, then back to usual dose of 500mg bid offered reassuranc e - no evidence of dvt Peripheral venous insufficiency 68940344 I87.2 cont comp socks, f/u c vein specialist in 09/04 as dir [id number] Jason Guevara MD Main Office [address] [address] [place] [address] 08/07/2020 13:01:37 08/07/2020 14:26:46 Adult health examination 421224200 Z00.00 Essential hypertension 24708277 I10 Stable off of medication s Hypothyroidism 63721288 E03.9 Screening for malignant neoplasm of breast 890784609 Z12.39 Menopause present 882996 006 Z78.0 Gastroesop hageal reflux disease 103843956 K21.9 Lateral epicondylitis 20 7006829 M77.12 Body mass index 40+ - severely obese 784298113 E66.01 Z68.41 [id number] Nii Yates MD Main Office [address] [place] [address] 08/10/2021 09:47:22 08/10/2021 10:49:11 Adult health examination 212458298 Z00.00 Patient was counseled on healthy diet, exercise and nutrition due to Body mass index is 41.1 kg/m? ? ?. Last Colonoscop y: Date: 07/04/20 Result: tubular adenoma Plan: repeat in 5 yrs Last Mammogram: Date: 10/30/2020 Result: Birad -1 Plan: ordered Last Pap smear Date: 08/21/17 Result: Neg for RICKEY, TZ present, HPV Plan: Per USPTF, repeat in 5yrs Had another pap Nov 2020, jefferson try to obtain records. Bone density scan Date: 10/30/2020 Result: Vaccines: TdAP: 04/17/2012 Zoster: 01/19/19, did not get second dose due to allergiesP CV13: 07/19/2020 PPSV23: due Influenza: tells me she got 07/28/2021 Covid: 12/17/20, 01/07/21, advised to get booster Routine labs today, with STI workup Immunizati on status reviewed. Will screen based on risk factors. Regular dental and ophtho care advised as well as seat belt and sunscreen use. Distracted driving discussed. Medication reconciled . Advance di rective discussed with patient 549160597 Z71.89 MOLST and HCP discussed with patient, patient to discuss with family and bring back at next visit. Fatigue 98867350 R53.83 Hyperlipidemia 97493014 E78.5 Screening for malignant neoplasm of breast 924524923 Z12.39 Insomnia 354707532 G47.0 0 Body mass index 40+ - severely obese 375260943 Z68.41 - Diet and exercise discussed- Patient made aware of risks of obesity- Avoid starchy and fatty food- Encouraged use of green vegetables and fruits Morbid obesity 475523595 E66.01 Essential hypertension 55456991 I10 [id number] Nica Gray Main Office [address] [facility] [address] [place] [address] 10/02/2021 11:19:28 10/02/2021 12:12:21 Chronic kidney disease stage 3B 518536072 N18.[address] Shahid Hypertensi ve renal disease 74531758 I12.9 Danita showed me a full log of her blood pressure readings at home and it has consistent ly been below 130 over 90s. I am reluctant to go ahead and change her blood pressure medication at this time as her elevated blood pressure could be due to being in a medical office setting.Sh jens will continue to monitor blood pressure and if it is elevated she will let me know so we can consider doubling up on her amlodipine to 10 mg daily till she follows up with nephrology . Low sodium diet discussedC ounseled on medication adherenceC ounseled on diet/exerc iseAdvised to keep BP daily BP log and technique counseled. Red flags of HTN emergency discussed and when to go to ED. Following nephrology Dr. Shahid see essential HTN above. [id number] Nica Gray Main Office [address] [place] [address] 08/28/2022 12:57:11 08/28/2022 13:52:16 Adult health examination 114402041 Z00.00 Patient was counseled on healthy diet, exercise and nutrition due to Body mass index is 42.9 kg/m? ? ?. Last Colonoscop y:Date: 07/04/20Res ult: tubular adenomaPla n: repeat in 5 yrs Last Mammogram: Date: 10/31/21Re sult: Birad -1Plan: ordered Last Pap smearDate: 08/21/17Res ult: Neg for RICKEY, TZ present, HPVPlan: Per USPTF, repeat in 5yrsHad another pap Nov 2020, jefferson try to obtain records.St ill get pap with Dr. Land. Bone density scanDate: 10/30/2020 Result: wnl Vaccines:T dAP: 04/17/2012Zo ster: 01/19/19, 05/08/22PCV 20: 07/17/2022I nfluenza: 08/05/22Cov id: 12/17/20, 01/07/21, 08/10/21, 06/01/22, 08/03/22 (Bivalent) Routine labs today Immunizati on status reviewed. Will screen based on risk factors. Regular dental and ophtho care advised as well as seat belt and sunscreen use. Distracted driving discussed. Medication reconciled . Advance di rective discussed with patient 116559842 Z71.89 MOLST and HCP discussed with patient, patient to discuss with family and bring back at next visit. Fatigue 66635075 R53.83 Hyperlipidemia 36987098 E78.5 Screening for malignant neoplasm of breast 457481217 Z12.39 Body mass index 40+ - severely obese 912184027 Z68.41 - Diet and exercise discussed- Patient made aware of risks of obesity- Avoid starchy and fatty food- Encouraged use of green vegetables and fruits Morbid obesity 659154428 E66.01 Chronic ki dney disease stage 3A 794534013 N18.[address] Shahid Neck pain 53151592 M54.2 Suspected MSK strain will get xr given age, if wnl advised ok to do PT.No red flag on PE. Vitamin D deficiency 347 10590 E55.9 Hypertensi ve renal disease 98658186 I12.9 BP stable with current regimen. [id number] BROOKS AGUILAR MD Main Office [address] [address] [place] [address] 08/07/2023 10:02:13 08/07/2023 13:04:34 [id number] Cheryl Oropeza, [facility] [address] [place] [address] 09/10/2023 09:49:15 09/10/2023 10:53:53 COVID-19 813617621 U07.1 Hydration, rest, if feeling better quarantine x 5 days then mask for 5 days. If not better after 5 days quarantine for full 10 days. Tylenol as needed, OTC cough med as needed. Call/ return for worsening sx or concerns. Chronic ki dney disease stage 3A 378693857 N18.31 GFR 49, Creatinine 1.2 Hypertensi ve renal disease 08105991 I12.9 Laryngitis 97536139 J04. 0 [id number] Nii Yates MD Main Office [address] [place] [address] 10/04/2023 08:32:10 10/04/2023 09:30:14 Adult health examination 312086940 Z00.00 Patient was counseled on healthy diet, exercise and nutrition due to Body mass index is 41.2 kg/m? ? ?. Last Colonoscop y:Date: 07/04/20Res ult: tubular adenomaPla n: repeat in 5 yrs Last Mammogram: Date: 11/01/22Re sult: Birad -1Plan: done by supervisor final Last Pap smearDate: 12/07/21Res ult: Neg for RICKEY, TZ absent, HPV negPlan: Per USPTF, done screening Bone density scanDate: 10/30/2020 Result: wnl Vaccines:T dAP: due, script givenZoste r: 01/19/19, 05/08/22PCV 20: 07/17/2022I nfluenza: 07/20/23Covi d: 12/17/20, 01/07/21, 08/10/21, 06/01/22, 08/03/22 (Bivalent) , 08/02/23RSV : 07/11/23 Routine labs today Immunizati on status reviewed. Will screen based on risk factors. Regular dental and ophtho care advised as well as seat belt and sunscreen use. Distracted driving discussed. Medication reconciled . Fatigue 51881330 R53.83 Hyperlipidemia 78351386 E78.5 Morbid obesity 883691576 E66.01 Body mass index 40+ - severely obese 886779888 Z68.41 - Diet and exercise discussed- Patient made aware of risks of obesity- Avoid starchy and fatty food- Encouraged use of green vegetables and fruits Advance di rective discussed with patient 279876152 Z71.89 MOLST and HCP discussed with patient, patient to discuss with family and bring back at next visit. Hypertensi ve renal disease 17115310 I12.9 BP stable with current regimen per renal and her home reading, little high in office today. She is otherwise asymptomat ic. BP could elevated due to discomfort from renal stone advised to monitor bp, she is otherwise following this up with renal. Chronic ki dney disease stage 3A 445303609 N18.[address] Shahid Vitamin D deficiency 347 52863 E55.9 Impaired f asting glycemia 077392775 R73.01 Administra tion of viral vaccine 02206013 Z23 [id number] Nica Gray Main Office [address] [facility] [address] [place] [address] 03/22/2024 09:34:14 03/22/2024 10:28:00 Pre-surgery evaluation 206923383 Z01.818 No medical contraindi cations to proposed procedure. Real Perioperat anson Cardiac Risk was calculated and the risk for perioperat anson CO is 0.6%. May proceed to surgery as planned.-c ompleted lab work this morning; bmp, cbc, and urinalysis -EGG revealed premature supraventr icular complexes; pt is asymptomat ic. New when compared to ecg from 2019. Scheduled to f/u in 2 months for repeat ECG. Chronic ki dney disease stage 3A 332043451 N18.[address] Shahid Hypertensi ve renal disease 27028337 I12.9 currently on amlodipine 5mg QD and lisinopril 10mg QD-in office BP of 160/81 and 136/78 Kidney stone 24671979 N2 0.0 [id number] Nii Yates MD Main Office [address] [address] [place] [address] 05/24/2024 10:08:25 05/24/2024 11:06:06 ECG: sinus arrhythmia 608504003 R94.31 repeat ecg reassuring . [id number] Joseph Aguilar MD Main Office [address] [address] [place] [address] 07/13/2024 10:38:10 07/13/2024 11:12:04 Cough 78852121 R05.9 Possible secondary to PND. Maybe be viral as well. Advised to use OTC meds as needed. Posterior rhinorrhea 758 01930 R09.82 [id number] Nii Yates MD Main Office [address] [place] [address] 08/03/2024 13:18:17 08/03/2024 14:09:53 Influenza vaccine needed 0691249801 106 Z23 65 YEARS AND OLDER Cough 76805617 R05.9 -Will proceed with PFT and methacholi ne.-Will get allergy testing via lab.-Will get CXR. Dyspnea 356006696 R06.00 No calf pain, no recent travel. Allergic rhinitis 636297 04 J30.9 [id number] MARIA DOLORES CAREY Main Office [address] [place] [address] 07/30/2024 10:26:26 07/30/2024 11:03:56 Dyspnea on exertion 05946654 R06.09 -recently stopped using her flonase and albuterol daily for 4 days and notes her symptoms of BARRIOS returned-w as advised to continue with flonase daily and albuterol prn; pt agreed and has been adherent-d enies of noticing any wheezing or sob at rest-on PE; expiratory wheezing appreciate d in the upper left lobe-discu ssed with pt to take the albuterol when she is experienci ng wheezing/s ob, not just when coughing-w ill further evaluate with PFTs w/ methacholi ne challenge [id number] MARIA DOLORES CAREY Main Office [address] [place] [address] 08/25/2024 09:37:24 08/25/2024 10:25:17 Pre-surgery evaluation 464185030 Z01.818 No medical contraindi cations to proposed procedure. Noble Perioperat anson Cardiac Risk was calculated and the risk for perioperat anson CO is <0.5%. May proceed to surgery as planned.-r ecently completed CBC w/ diff, BMP in 07/2024-EGG ; slightly bradycardi c, 57 bpm, NSR, no ST changes Chronic ki dney disease stage 3A 433200623 N18.[address] Shahid Hypertensi ve renal disease 71700298 I12.9 currently on amlodipine 5mg QD and losartan 50mg QD-in office BP of 145/73 Hypothyroidism 99709244 E03.9 -on levothyrox ine 75mcg Arthritis of first carpometacarpal joint of right hand 9179794693 910851 M13.841 pre-operat anson medical clearance for right thumb carpometac arpal arthroplas ty procedure with Dr. Gurjit Steele (NPI#[id number]) on 09/16/2024 . Under MAC. [id number] Nica Gray Main Office [address] [facility] [address] [place] [address] 10/05/2024 09:50:28 10/05/2024 10:51:19 Adult health examination 372388394 Z00.00 Patient was counseled on healthy diet, exercise and nutrition due to Body mass index is 43.2 kg/m? ? ?. Last Colonoscop y:Date: 07/04/20Res ult: tubular adenomaPla n: repeat in 5 yrs Last Mammogram: Date: 11/03/2023 Result: Birad -1Plan: done by supervisor final Last Pap smearDate: 12/07/21Res ult: Neg for RICKEY, TZ absent, HPV negPlan: Per USPTF, done screening Bone density scanDate: 10/30/2020 Result: wnl Vaccines:T dAP: 10/24/23Zos ter: 01/19/19, 05/08/22PCV 20: 07/17/2022I nfluenza: 08/03/24Cov id: 08/11/24RSV : 07/11/23 Routine labs today Immunizati on status reviewed. Will screen based on risk factors. Regular dental and ophtho care advised as well as seat belt and sunscreen use. Distracted driving discussed. Medication reconciled . Fatigue 68528469 R53.83 Hyperlipidemia 84134795 E78.5 Morbid obesity 048224279 E66.01 Body mass index 40+ - severely obese 279446453 Z68.41 - Diet and exercise discussed- Patient made aware of risks of obesity- Avoid starchy and fatty food- Encouraged use of green vegetables and fruits Advance di rective discussed with patient 220523663 Z71.89 MOLST and HCP discussed with patient, patient to discuss with family and bring back at next visit. Hypertensi ve renal disease 03466729 I12.9 BP little elevated, followed by renal med adjustment being made. Chronic ki dney disease stage 3A 313942298 N18.[address] Shahid Vitamin D deficiency 347 68421 E55.9 Impaired f asting glycemia 676101044 R73.01 Screening for malignant neoplasm of breast 437056441 Z12.39 [id number] Nii Yates MD Main Office [address] [address] [place] [address] 11/04/2024 08:30:11 11/05/2024 16:23:02 [id number] Janel Sandoval PA-C Main Office [address] [place] [address] 11/09/2024 10:18:25 11/09/2024 11:07:20 Atrial flutter 1340125 I48.92 new acute onset of atrial flutter diagnosed on pre-op for bronchosco py , post admission and cardiovers ion, on anticoagul ation and antiarrhyt hmic meds. Pt. appears stable and has no related symptoms of palpitatio ns , shortness of breath . Has cardiology sabrina. later this week for holter monitor placement and planned cardiovers ion for November. Blood pressure is stable. Labs were reviewed and stable . TSH was stable in September. Hypertensi ve renal disease 42343548 I12.9 stable hypertensi on on current medication s. Chronic ki dney disease stage 3A 436809269 N18.31 stable, f/u with Dr. Shahid in November. Hypothyroidism 70078395 E03.9 stable on current medication . Moderate p ersistent asthma 095249565 J45.40 stable, pt. will continue Wixela and f/u with pulmonary in November. Health Concerns Section Related Observation LastModified by Organization Detai ls LastModified Time None Recorded Concern Status LastModified by Organization Details LastModified Time None Recorded Advance Directives Directive Y: HCP; per patient Payers Encounter Date Sequence Insurance Name Policy Number Policy Alvarenga Covered Member ID Alvarenga Member ID Guarantor Name 08/03/2024 1 [place] [facility] Danita A Randle [id number] Danita A Randle 08/03/2024 2 [employer] INDEMNITY PLAN - [employer] [id number] 2 Danita A Randle [id number] Danita A Randle 08/25/2024 1 [place] [employer] Danita A Randle [id number] Danita A Randle 08/25/2024 2 [employer] INDEMNITY PLAN - [employer] [id number] 2 Danita A Randle [id number] Danita A Randle 10/05/2024 1 [place] [employer] Danita A Randle [id number] Danita A Randle 10/05/2024 2 [employer]WE[employer] INDEMNITY PLAN - [employer] [id number] 2 Danita A Randle [id number] Danita A Randle 11/04/2024 1 [facility] Danita A Randle [id number] Danita A Randle 11/04/2024 2 COMMONWE[employer] INDEMNITY PLAN - [employer] [id number] 2 Danita A Randle [id number] Danita A Randle 11/09/2024 1 [facility] Danita A Randle [id number] Danita A Randle 11/09/2024 2 [employer] IN[employer]ITY PLAN - [employer] [id number] 2 Danita A Randle [id number] Danita A Randle Notes Date Note Type Note Provider Name and Address Organization Details Recorded Time 08/03/2024 text/html Follow up for co ugh and med review, sx stable has PFT scheduled tomorrow. Doing ok otherwise. Nii Yates MD [address] [facility] [address], [place], [address], [facility] [place] 08/03/2024 13:59:13 08/25/2024 text/html Danita is a 69yr old F with PMHx of CKD stage 3A, hypothyroidism, presents for pre-operative medical clearance for right thumb carpometacarpal arthroplasty procedure with Dr. Gurjit Steele (NPI#[id number]) on 09/16/2024. Under MAC. Denies any acute complaints at this time. Known allergies to amoxicillin, ciprofloxacin, and latex, and has tolerated anesthesia in the past without complications. The patient does not follow w/ Cardiology and notes that she can walk multiple blocks and has no limitations with going up multiple flights of stairs before becoming symptomatic METS score ~ > 4. The patient currently denies chest pain, shortness of breath, palpitations, fever, chills, and nausea/vomiting. MARIA DOLORES CAREY [address] [facility] [address], [place], [address], [facility] [place] 08/25/2024 10:40:33 10/05/2024 text/html Medicare Annual Wellness VisitReported bypatient.Diet and Nutrition:healthy diet Fracture Risk:no recent explained fracture Physical Activity:exercises on a regular basis Depression Risk:See phq Concentration and Memory:no memory lapses or loss Speech/Motor difficulties:no speech difficulties Hearing:no loss of hearing Vision:no vision problems Activities of Daily Living:able to bathe with limited or no assistance; able to contol urination and bowels; able to feed self with limited or no assistance; able to get out of chair or bed with limited or no assistance; able to groom with limited or no assistance; able to toilet with limited or no assistance;unable to dress without assistance(Due to CMC surgery, helping.) Instrumental Activities of Daily Living:able to grocery shop with limited or no assistance; able to manage medications with limited or no assistance; able to manage money with limited or no assistance; able to use the phone with limited or no assistance;unable to do house work without assistance;unable to to prepare meals without assistance Falls Risk Assessment:no fall since last visit Home Safety:reviewed sun protection; no unsafe stairs; working smoke/CO detectors; use of seatbelts; good lighting in the home Here for wellness visit. Reviewed chronic medications and medical problems. Discussed screening guidelines as well as goals for fitness and weight management. Has casted right hand, for removal tomorrow, hand surgery for CMC arthritis.Blood pressure followed by renal. Nica foote [facility] 10/18/2024 10:51:09 11/04/2024 text/html Hospitalization Contact RecordReported bypatient.Follow UpHospital: [facility]; admit date: (Please enter in format 'MM/DD/YYYY') (10/28/24); date of discharge: (Please enter in format 'MM/DD/YYYY') (11/03/24); date of contact: (Please enter in format 'MM/DD/YYYY') (11/04/24)Notes:Medic are covered inpatient stay? yesMedicare JAMES with in 48 working hours? yesHigh Complexity code valid on or before:OctoberModerate Complexity code valid on or before:NovemberHCP on file? noMOLST on file? noDischarge Summary available? yes69 y/o white female w/ PMH significant for CKD3, GERD, HLD, hypothyroidism, HTN, asthma, obesity, lung nodules, restrictive lung disease, and Vitamin D deficiency presented to [facility] 10/28 from pre-op area where she was scheduled to have bronchoscopy due to rapid irregular HR.-She was diagnosed with new onset a-flutter and started on diltiazem with good effect-bronchoscopy completed inpatient and a popcorn kernel was removed-echo showed R heart strain suspected to be from undiagnosed YOSHI-d/c home on hospital day # 6 11/04/24 CM f/u call - no ans - lvm101/05/24 patient returned call. Feeling very well I have tons of energy for some reason. She states her O2 dsat prior to bronch was in the low 90's but came back up to 98% after procedure. The kernel was blocking a significant airway. She denies any side effects from new meds. We reviewed proper use and purpose and specifically s/s abnormal bleeding. Patient verbalizes understanding. Discussed need for sleep study. She is in agreement and requests out help with referral. This can be completed at hospital f/u appt. No other needs today. CM gave patient direct contact # for future use. Nii Yates MD [address], [place], [address], [facility] [place] 11/05/2024 16:23:01 11/09/2024 text/html 69 year old malcom field for transition of care visit. Admitted 10/28 through 11/03/24 to [facility] for new onset atrial flutter and bronchospasm . Janel Sandoval PA-C [address], [place], [address], [facility] [place] 11/09/2024 11:02:04 11/09/2024 text/html Hospitalization Contact RecordReported bypatient.Follow UpHospital: [facility]; admit date: (Please enter in format 'MM/DD/YYYY') (10/28/24); date of discharge: (Please enter in format 'MM/DD/YYYY') (11/03/24); date of contact: (Please enter in format 'MM/DD/YYYY') (11/04/24)Notes:Medic are covered inpatient stay? yesMedicare JAMES with in 48 working hours? yesHigh Complexity code valid on or before:OctoberModerate Complexity code valid on or before:NovemberHCP on file? noMOLST on file? noDischarge Summary available? yes69 y/o white female w/ PMH significant for CKD3, GERD, HLD, hypothyroidism, HTN, asthma, obesity, lung nodules, restrictive lung disease, and Vitamin D deficiency presented to [facility] 10/28 from pre-op area where she was scheduled to have bronchoscopy due to rapid irregular HR.-She was diagnosed with new onset a-flutter and started on diltiazem with good effect-bronchoscopy completed inpatient and a popcorn kernel was removed-echo showed R heart strain suspected to be from undiagnosed YOSHI-d/c home on hospital day # 6 11/04/24 f/u call - no ans - lvm101/05/24 patient returned call. Feeling very well I have tons of energy for some reason. She states her O2 dsat prior to bronch was in the low 90's but came back up to 98% after procedure. The kernel was blocking a significant airway. She denies any side effects from new meds. We reviewed proper use and purpose and specifically s/s abnormal bleeding. Patient verbalizes understanding. Discussed need for sleep study. She is in agreement and requests out help with referral. This can be completed at hospital f/u appt. No other needs today. CM gave patient direct contact # for future use. Janel Sandoval PA-C [address] [facility] [address], [place], [address] [facility] [place]09/2024 11:02:04 OBGyn Episode No OBEpisode recorded.
[2024-12-08 12:15] VITALS: BP 104/56; PULSE 59; RESP 12; TEMP 36.4; O2SAT 96
== END 2024-12-08 13:03 | disposition home or self-care (01) ==
PROVIDERS: PCP Family Medicine; Visit Provider Internal Medicine Cardiovascular Disease
PROC: 5A2204Z Restoration of Cardiac Rhythm, Single (ICD-10-PCS; principal; 2024-12-08 12:00)
DX: I48.92 Unspecified atrial flutter (principal); Z79.01 Long term (current) use of anticoagulants; I50.89 Other heart failure; I27.20 Pulmonary hypertension, unspecified; R60.0 Localized edema; J45.909 Unspecified asthma, uncomplicated; G47.33 Obstructive sleep apnea (adult) (pediatric); E66.9 Obesity, unspecified; Z68.41 Body mass index [BMI] 40.0-44.9, adult; Z88.1 Allergy status to other antibiotic agents; Z91.040 Latex allergy status; Z79.899 Other long term (current) drug therapy
CPT/HCPCS: 92960; 93005; J2003; J2704

== ENCOUNTER → 2024-12-08 10:48 | Outpatient (BNV) | payer MEDICARE, OTHER, SELFPAY | PROVIDERS: PCP Family Medicine; Visit Provider Internal Medicine Cardiovascular Disease | DX: I48.4 Atypical atrial flutter (principal) | CPT/HCPCS: 92960; 93010 ==

== ENCOUNTER → 2024-12-20 12:45 | Outpatient (REF) | payer MEDICARE, OTHER, SELFPAY ==
--- NOTE | 2024-12-20 12:59 | HM_ITS ---
Conclusion: 1. Patient was monitored for total period of 3 days 2. Baseline was normal sinus rhythm with average heart of 60 beats per minute 3. No significant pauses noted 4. Frequent PACs noted with total burden of 5.4% 5. No patient reported events MTDD
--- OUTSIDE RECORDS SUMMARY | 2024-12-20 14:04 | XMS_ITS | Encounter Summary ---
Author Organization [facility]ly [facility] Address [address] [place] [address] Care Team Providers Care Manager Sales Training Name Role Phone Sugey Rice MD Primary Care Provider [phone] Reason for Visit * Reason Comments Appointment Encounter Details Date Type Department Care Team (Late Contact Info) Description 02/05/[address] [phone] Josef Loya MD [address] [place] [address] Appointment Social History Tobacco Use Types Packs/Day [...] AM EST [facility] Visit [facility] [address] [place] [address] Gurjit Steele MD [address] [address] 06/29/2025 10:30 AM EDT Office Visit [facility] [place] [address] [place] [phone] Josef Loya MD [address] [place] [address] documented as of this encounter Visit Diagnoses Not on filedocumented in this encounter Care Teams Manager Sales Training Relationship Specialty Start Date End Date Sugey Rice MD [address] [address] PCP - General Family Medicine 05/05/23 documented as of this encounter
--- OUTSIDE RECORDS SUMMARY | 2024-12-20 14:04 | XMS_ITS | Encounter Summary ---
Author Organization [facility] Address [address] [place] [address] Care Team Providers Care Adult And Pediatric Neurologist Name Role Phone Sugey Rice MD Primary Care Provider [phone] Encounter Details Date Type Department Care Team (Late st Contact Info) Description 05/29/2023 Scanned Document Orthopedic [address] [phone] Leif Reed MD [address] [place] [address] Social History Tobacco Use Types Packs/Day Years [...] 10:00 AM EST [facility] [address] [address] Gurjit Steele MD [address] [place] [address] 06/29/2025 10:30 AM EDT Office Visit [facility] [address] [phone] Josef oLya MD [address] [place] [address] documented as of this encounter Visit Diagnoses Not on filedocumented in this encounter Care Teams Adult And Pediatric Neurologist Relationship Specialty Start Date End Date Sugey Rice MD [address] [address] PCP - General Family Medicine 05/05/23 documented as of this encounter
--- OUTSIDE RECORDS SUMMARY | 2024-12-20 14:05 | XMS_ITS | Encounter Summary ---
Author Organization [facility] Address [address] [place] [address] Phone Care Team Providers Care Plastic Extruding Machine Operator Name Role Phone Sugey Rice MD Primary Care Provider [phone] Encounter Details Date Type Department Care Team (Late st Contact Info) Description 12/10/2024 Documentation Only [facility] [place], [address] [place] [phone] Lissett [place], [place] [address] [place] [address] Social History Tobacco Use Types [...] Care Team (Late st Contact Info) Description 05/03/2025 4:15 PM EDT Office Visit [facility] [place] [facility] [place] [address] [place] [phone] Leonardo Stovall [address] [place] [phone] documented as of this encounter Visit Diagnoses Not on filedocumented in this encounter Care Teams Plastic Extruding Machine Operator Relationship Specialty Start Date End Date Sugey Rice MD [address] [phone] PCP - General Family Medicine 09/04/21 documented as of this encounter
--- OUTSIDE RECORDS SUMMARY | 2024-12-20 14:05 | XMS_ITS | Encounter Summary ---
Author Organization [facility] Address [address] [place] [address] Phone Care Team Providers Care Gut Cleaner Name Role Phone Sugey Rice MD Primary Care Provider [phone] Reason for Visit * Reason Comments Med Refill Encounter Details Date Type Department Care Team (Late st Contact Info) Description 10/24/2024 Refill [facility] [address] [place] [phone] Leonardo Stovall DO [address] [place] [address] Social History Tobacco Use Types [...] Visit [facility] [place] [address] Leonardo Stovall DO [address] [place] [address] documented as of this encounter Visit Diagnoses Not on filedocumented in this encounter Care Teams Gut Cleaner Relationship Specialty Start Date End Date Sugey Rice MD [address] [phone] PCP - General Family Medicine 09/04/21 documented as of this encounter
--- OUTSIDE RECORDS SUMMARY | 2024-12-20 14:05 | XMS_ITS | Encounter Summary ---
Author Organization [facility] Address [address] [place] [address] Phone Care Team Providers Care Occupational Psychologist Name Role Phone Sugey Rice MD Primary Care Provider [phone] Encounter Details Date Type Department Care Team (Late st Contact Info) Description 12/17/2024 Documentation Only [facility] [place], [address] [place] [phone] [place]ett [place], [place] [address] [place] [address] Social History Tobacco Use Types [...] Visit [facility] [place] [address] [place] [phone] Leonardo Stovall [address] [place] [phone] documented as of this encounter Visit Diagnoses Not on filedocumented in this encounter Care Teams Occupational Psychologist Relationship Specialty Start Date End Date Sugey Rice MD [address] [phone] PCP - General Family Medicine 09/04/21 documented as of this encounter
--- OUTSIDE RECORDS SUMMARY | 2024-12-20 14:05 | XMS_ITS | Encounter Summary ---
Author Organization [facility] [place], Address [address] [place] [address] Phone Care Team Providers Care Material Handler 1St Shift Name Role Phone Sugey Rice MD Primary Care Provider [phone] Encounter Details Date Type Department Care Team (Late st Contact Info) Description 12/10/2024 2:00 PM EST Office Visit [facility] [place], [address] [place] [phone] Leonardo Stovall, [address] [place] [phone] Stage 3a chronic kidney disease (HCC) (Primary Dx); Hypertensive heart and chronic kidney disease without heart failure, with stage 1 through stage 4 chronic kidney disease, or unspecified chronic kidney disease; Uric acid renal calculus; Essential hypertension Social History Tobacco Use Types Packs/Day Years Used Date Smoking Tobacco: Never Comments Unknown Sex and Gender Information Value Date Recorded Sex Assigned at Not on file Legal Sex Female 3:19 PM EDT Gender Identity Not on file Sexual Orientation Not on file documented as of this encounter Last Filed Vital Signs Vital Sign Reading Time Taken Comments Blood Pressure 132/78 12/10/2024 2:13 PM EST Pulse 72 12/10/2024 2:13 PM EST Temperature - - Respiratory Rate - - Oxygen Saturation - - Inhaled Oxygen Concentration - - Weight - - Height - - Body Mass Index - - documented in this encounter Progress Notes * Leonardo Stovall DO - 12/10/2024 2:00 PM EST Images from the original note were not included. PATIENT: Danita Randle : 1955 ENCOUNTER: 12/10/2024 PCP: Sugey Rice MD HPI: Danita Randle is a 69 y.o. year old female with a history of obesity and essential hypertension came to the office today for follow up regarding her non- proteinuric CKD with most recent creatinine of 1.3 mg/dL. She has no history of tobacco use, diabetes mellitus or recurrent UTI/stones. Danita returns to the office today after having suffered a symptomatic kidney stone about 6 to 8 weeks ago whereshnata was treated down in [place] and found to have an obstructing 1.6 cm uric acid stone (80% uric acid and 20% calcium monohydrate). Since that time she is felt dramatically better and blood pressure readings have improved as well by home measurements. She did a 24-hour Litholink study which did confirm high uric acid level in the urine as well as low urine pH and low urine volume as her main risk factors. Her citrate levels were mildly depressed as well. Her potassium citrate had been decreased more recently due to elevated potassium readings despite the fact that her serum creatinine levelwas only 1.3 mg/dL. Today's update: Danita came in for routine follow up. She is to undergo C in [place] in january after ? Abnl stress test and recent cardioversion for aflutter. Amlodipine stopped in favor of diltiazem. No recent signs or symptoms of kidney stones. Creatinine stable at 1.3 mg/dL. ROS: Constitutional: No fever. Respiratory: No shortness of breath. Cardiovascular: No chest pain. Gastrointestinal: No abdominal pain, nausea or vomiting. Genitourinary: No hematuria. All other systems reviewed and are negative. PAST MEDICAL HISTORY: Patient Active Problem List Diagnosis Date Noted Uric acid renal calculus 04/28/2024 Acute nontraumatic kidney injury (HCC) 09/07/2021 Hypertensive heart and chronic kidney disease without heart failure, with stage 1 through stage 4 chronic kidney disease, or unspecified chronic kidney disease 09/07/2021 Stage 3a chronic kidney disease (HCC) 09/07/2021 Essential hypertension 09/06/2021 Gastroesophageal reflux disease 09/06/2021 Hyperlipidemia 09/06/2021 Hypothyroidism 09/06/2021 Vitamin D deficiency 09/06/2021 Serum creatinine above reference range 08/11/2020 PAST SURGICAL HISTORY: Past Surgical History: Procedure Laterality Date SECTION, CLASSIC HERNIA REPAIR OTHER SURGICAL HISTORY x3 SHOULDER SURGERY UMBILICAL HERNIA REPAIR SOCIAL HISTORY: Social History Tobacco Use Smoking status: Never Smokeless tobacco: Not on file Substance Use Topics Alcohol use: Not on file Comment: Alcoholic Drinks/day: Occasional social drink FAMILY HISTORY: Family History Problem Relation Age of Onset Kidney disease Sibling Son - high communications project lead Diabetes Mother Hypertension Mother Cancer Mother Cancer Sibling brother-SCC MEDICATIONS: Outpatient Encounter Medications as of 12/10/2024 Medication Sig Dispense Refill apixaban (Eliquis) 5 MG tablet Take 5 mg by mouth in the morning and 5 mg in the evening. Cholecalciferol 50 MCG (1999 UT) capsule 1 capsule at bed time dilTIAZem CD (CARDIZEM CD) 120 MG 24 hr capsule Take 120 mg by mouth 1 (one) time each day levothyroxine (SYNTHROID, LEVOTHROID) 75 MCG tablet levothyroxine 75 mcg tablet TAKE 1 TABLET BY MOUTH EVERY DAY losartan (Cozaar) 50 MG tablet Take 1 tablet (50 mg total) by mouth 1 (one) time each day 90 tablet3 omeprazole (PriLOSEC) [address] capsule omeprazole 40 mg capsule,delayed release potassium citrate 10 MEQ (1080 MG) CR tablet Take 2 tablets (20 mEq total) by mouth in the morning and 2 tablets (20 mEq total) at noon and 2 tablets (20 mEq total) in the evening. Take with meals. Do not crush, chew, or split.. 540 tablet 3 pravastatin (PRAVACHOL) 10 MG tablet Take 10 mg by mouth 1 (one) time each day [DISCONTINUED] amLODIPine (NORVASC) 5 MG tablet Take 2 tablets (10 mg total) by mouth 1 (one) time each day 180 tablet 4 [DISCONTINUED] aspirin (Samra Aspirin EC Low Dose) 81 MG EC tablet Take 1 tablet by mouth 1 (one) time each day No facility-administered encounter medications on file as of 12/10/2024. MEDICATION REVIEW: I have reviewed the patient's current medications. ALLERGIES: is allergic to amoxicillin, ciprofloxacin, latex, varicella-zoster immune glob, and zoster vac recomb adjuvanted. PHYSICAL EXAM: BP 132/78 Pulse 72 Constitutional: No apparent distress Cardiovascular: No friction rub. Pulmonary/Chest: No rales. Abdominal: Soft and non-tender. Extremities: Edema None LABS: Chemistry Lab Units 10/06/24 0741 08/04/24 1534 03/22/24 0808 03/03/24 1237 03/12/23 1143 CREATININE mg/dL 1.24* 1.53* 1.31* 1.27* 1.2* BUN mg/dL 27 30* 29* 36* 28* POTASSIUM mmol/L 4.9 4.7 4.9 5.5* 4.5 SODIUM mmol/L 138 139 137 140 140 CO2 mmol/L 23 21 29 29 24 CHLORIDE mmol/L 100 104 103 103 106 ALBUMIN g/dL 4.2 4.3 -- -- 4.8 EGFRNAFR ML/MIN/1.73 M2 -- -- -- -- 48 Bone Mineral Lab Units 10/06/24 0741 08/04/24 1534 03/22/24 0808 03/03/24 1237 03/12/23 1143 CALCIUM mg/dL 9.6 9.1 9.4 9.5 9.3 PHOSPHORUS mg/dL 3.7 3.6 -- -- 3.6 LABORATORY REVIEW: I have reviewed the labs noted above as well as in the chart, in [facility] and in Care Everywhere. DOCUMENTATION REVIEW: I have reviewed the applicable outside notes located in the chart, in CIS and in Care Everywhere. ASSESSMENT: 1. Stage 3a chronic kidney disease (HCC) 2. Hypertensive heart and chronic kidney disease without heart failure, with stage 1 through stage 4 chronic kidney disease, or unspecified chronic kidney disease 3. Uric acid renal calculus 4. Essential hypertension 1. CKD Stage IIIa from Hypertensive Nephropathy - occurring in the setting of 70 lbs weight loss and what sounds like symptomatic hypotension - she has also consumed a high protein diet which I've asked her to stop for now - renal duplex was negative for evidence of JOSAFAT however there was a question of a small non-obstructing stone unilaterally. She is asymptomatic so maintaining a good hydration strategy and low sodiumdiet is the focus for now. She has no proteinuria, diabetes mellitus or tobacco use history -Most recent baseline creatinine 1.2-1.3 mg/dL. 2. Essential HTN - Continue losartan 50 mg daily - low sodium diet and weight loss encouraged 3. Uric acid nephrolithiasis -Will change lisinopril to losartan 50 mg daily for uricosuric effect and have her follow low uratediet. Repeat labs in a month and if better will then add allopurinol 100 mg daily -Refilling potassium citrate back up to 60 mmol daily -Increase fluid intake to over 2.5 L/day with expectation that she is going to void during the daytime every 2-3 hours minimum -Low sodium and low animal fat diet counseled -Will reassess lab work in another 4 weeks and see me back in 4 months Pulm HTN and aflutter popcorn YOSHI testing pending. I'm ok with GLP1a for weight loss - she will discuss this with you. Thank you for allowing me to participate in Danita's care. With your permission I will see her backin 6 months. Orders Placed This Encounter Renal Function Panel Urinalysis with microscopic Uric acid documented in this encounter Plan of Treatment Upcoming Encounters Date Type Department Care Team (Late st Contact Info) Description 05/03/2025 4:15 PM EDT Office Visit [facility] [place] [facility] [place] [address] [place] [phone] Leonardo Stovall DO [address] [place] [phone] Scheduled Orders Name Type Priority Associated Diagnoses Orde r Schedule Renal Function Panel Lab Routine Stage 3a chronic kidney disease (HCC) Hypertensive heart and chronic kidney disease without heart failure, with stage 1 through stage 4 chronic kidney disease, or unspecified chronic kidney disease Uric acid renal calculus Essential hypertension Expected: 12/10/2024, Expires: 01/10/2026 Urinalysis with microscopic Lab Routine Stage 3a chronic kidney disease (HCC) Hypertensive heart and chronic kidney disease without heart failure, with stage 1 through stage 4 chronic kidney disease, or unspecified chronic kidney disease Uric acid renal calculus Essential hypertension Expected: 12/10/2024, Expires: 01/10/2026 Uric acid Lab Routine Stage 3a chronic kidney disease (HCC) Hypertensive heart and chronic kidney disease without heart failure, with stage 1 through stage 4 chronic kidney disease, or unspecified chronic kidney disease Uric acid renal calculus Essential hypertension Expected: 12/10/2024, Expires: 01/10/2026 documented as of this encounter Visit Diagnoses Diagnosis Stage 3a chronic kidney disease (HCC)- Primary Hypertensive heart and chronic kidney disease without heart failure, with stage 1 through stage 4 chronic kidney disease, or unspecified chronic kidney disease Uric acid renal calculus Essential hypertension documented in this encounter Care Teams Material Handler 1St Shift Relationship Specialty Start Date End Date Sugey Rice MD [address] [address] PCP - General Family Medicine 09/04/21 documented as of this encounter
--- OUTSIDE RECORDS SUMMARY | 2024-12-20 14:05 | XMS_ITS | Encounter Summary ---
Author Organization [facility] Address [address] [place] [address] Care Team Providers Care Brick Mason Name Role Phone Sugey Rice MD Primary Care Provider [phone] Reason for Visit * Reason Comments GERD Irritable Bowel Syndrome Encounter Details Date Type Department Care Team ([facility] st Contact Info) Description 12/10/2024 9:00 AM EST Office Visit Gastroenterology - [address] [address] Nano Brown MD [address] [address] Irritable bowel syndrome without diarrhea (Primary Dx); GERD (gastroesophageal reflux disease); Colon cancer screening Social History Tobacco Use Types Packs/Day Years Used Date Smoking Tobacco: Never Smokeless Tobacco: Never Alcohol Use Standard Drinks/Week Comments Never 0 (1 standard drink = 0.6 oz pur e alcohol) Sex and Gender Information Value Date Recorded Sex Assigned at Not on file Gender Identity Not on file Sexual Orientation Not on file Job Start Date Occupation Industry Not on file Not on file Not on file documented as of this encounter Ordered Prescriptions Prescription Sig Dispensed Refills Start Date End Da te omeprazole (PriLOSEC) [address] capsuleIndications:GERD (gastroesophageal reflux disease) Take 1 capsule (40 mg total) by mouth 1 (one) time each day. 90 each 3 12/10/2024 12/10/2025 documented in this encounter Progress Notes * Nano Brown MD - 12/10/2024 9:00 AM EST CHIEF COMPLAINT: GERD and Irritable Bowel Syndrome History of Present Illness Danita Randle is a 69 y.o. old female who was originally referred to us by Sugey Rice MD now presents to the gastroenterology department today for a follow up of GERD and IBS-D. Patient last seen in the office on 05/28/24. At that time her reflux was well controlled on omeprazole daily. Her diarrhea predominant irritable bowel was also stable with the use of imodium as needed. Patient returns today for routine followup. She is due for her surveillance colonoscopy this upcoming June. She experienced an episode of aspiration involving a popcorn kernel, which lodged in her bronchus intermedius. This incident occurred post-Thanksgiving and necessitated a week-long hospital admissionfor bronchoscopy and removal of the foreign body. During her hospitalization, she developed atrial flutter. He has been followed by cardiology at [facility]. She underwent cardioversion on 12/08/2024 and hopefully this will proved to be successful. She is currently on anticoagulation therapy with Eliquis. A subsequent consultation with her pie maker revealed mild pulmonary hypertension, potentially attributable to the recent aspiration event. Despite these health challenges, she reports feeling well overall. She occasionally experiences a burning sensation, prompting a stress test, which yielded abnormal results. Her cousin, a jailer, suspects a false positive indicating a blockage. She is scheduled for an angiogram at [facility]. Her gastroesophageal reflux disease (GERD) is well-managed with omeprazole, and she reports no difficulty swallowing, breakthrough heartburn symptoms, or odynophagia. In terms of her diarrhea predominant irritable bowel syndrome she has been stable without any particular change in her symptoms. ROS: GENERAL: No malaise, significant weight loss or fever HEENT: No changes in hearing or vision, nose bleeds or swallowing problems NECK: No lumps, goiter, pain or significant neck swelling RESPIRATORY: No cough, wheezing or shortness of breath. She has been diagnosed with sleep apnea, a diagnosis she questions. She is scheduled for an overnight sleep study at home on 12/20/2024. She does not report any snoring. CARDIOVASCULAR: No chest pain, leg swelling or palpitations GI: as per HPI. MUSCULOSKELETAL: No joint pain or swelling, back pain, or muscle pain. SKIN: No lesions, rash or itching The remainder of the review of systems is reviewed and negative. PAST MEDICAL HISTORY: Past Medical History: Diagnosis Date GERD (gastroesophageal reflux disease) HTN (hypertension) Hyperlipidemia Hypothyroid Irritable bowel syndrome with diarrhea Nephrolithiasis Rosacea PAST SURGICAL HISTORY: Past Surgical History: Procedure Laterality Date SECTION x 3 COLONOSCOPY 07/07/2015 Dr. Andrews - key COLONOSCOPY W/ POLYPECTOMY 06/2020 TA x 1 VARICOSE VEIN SURGERY SOCIAL HISTORY: Social History Tobacco Use Smoking status: Never Smokeless tobacco: Never Substance Use Topics Alcohol use: Never FAMILY HISTORY: Family History Problem Relation Name Age of Onset Colon cancer Mother 65 ACTIVE MEDICATIONS: Current Outpatient Medications Medication Sig Dispense Refill cholecalciferol (VITAMIN D-3) 50 mcg (2,000 unit) capsule Vitamin D3 50 mcg (2,000 unit) capsule Take 1 capsule every day by oral route. dilTIAZem CD (CARDIZEM CD) 120 mg 24 hr capsule Take 1 capsule (120 mg total) by mouth 1 (one) timeeach day. Eliquis 5 mg tablet Take 1 tablet (5 mg total) by mouth 2 (two) times a day. losartan (COZAAR) 50 mg tablet Take 1 tablet (50 mg total) by mouth 1 (one) time each day. omeprazole (PriLOSEC) [address] capsule TAKE 1 CAPSULE BY MOUTH EVERY DAY 90 capsule 0 potassium citrate (UROCIT-K) 10 mEq (1,080 mg) CR tablet PLEASE SEE ATTACHED FOR DETAILED DIRECTIONS pravastatin (PRAVACHOL) 10 mg tablet Take 1 tablet (10 mg total) by mouth at bedtime. No current facility-administered medications for this visit. ALLERGIES: Allergies Allergen Reactions Amoxicillin Cipro [Ciprofloxacin Hcl] Latex PHYSICAL EXAM: Visit Vitals Smoking Status Never APPEARANCE: Alert and in no acute distress EYES: PERRLA, conjunctiva and sclera normal. MOUTH/THROAT: no erythema or exudates NECK: Neck supple, no adenopathy HEART: RRR with normal S1 and S2, no murmurs appreciated LUNG: clear to auscultation LYMPH NODES: grossly normal ABDOMEN: soft non tender, no ascites, guarding, or rebound, no organomegaly. RECTAL: Exam deferred. EXTREMITIES: Extremities warm and well perfused SKIN: Skin color, texture, turgor normal. NEURO: Awake, alert and oriented x 3 Assessment & Plan Assessment & Plan GERD (gastroesophageal reflux disease) 1. Gastroesophageal Reflux Disease (GERD). She reports that her reflux symptoms are well-controlled with omeprazole. A prescription for a 90-day supply of omeprazole will be provided. Orders: omeprazole (PriLOSEC) [address] capsule; Take 1 capsule (40 mg total) by mouth 1 (one) time each day. Irritable bowel syndrome without diarrhea Patient has a longstanding history of diarrhea predominant irritable bowel his symptoms have been well-controlled with the rare use of Lomotil or Imodium. She had no particular concerns or complaintsat today's visit and she will continue this regimen for the foreseeable future. Colon cancer screening Has a history of an adenomatous polyp. Her last colonoscopy was June 2020. She is due for surveillance colonoscopy this upcoming June. This will be scheduled when the drill opens up. Follow up in about 6 months (around 06/09/2025) for Next scheduled follow-up. Board Certified, Gastroenterology Gastroenterology and Hepatology Practice [facility] [email or web address] [phone] [place] [address] [email or web address] Nano Brown MD documented in this encounter Plan of Treatment Not on file documented as of this encounter Visit Diagnoses Diagnosis Irritable bowel syndrome without diarrhea- Primary GERD (gastroesophageal reflux disease) Esophageal reflux Colon cancer screening Special screening for malignant neoplasms, colon documented in this encounter Discontinued Medications Medication Sig Discontinue Reason Start Date End Da te omeprazole (PriLOSEC) [address] capsuleIndications:GERD (gastroesophageal reflux disease) TAKE 1 CAPSULE BY MOUTH EVERY DAY Reorder 12/07/2024 12/10/2024 documented as of this encounter Historical Medications * This list may reflect changes made after this encounter. Medication Sig Dispensed Refills Start Date End Date Eliquis 5 mg tablet Take 1 tablet (5 mg total) by mouth 2 (two) times a day. 11/29/2024 cholecalciferol (VITAMIN D-3) 50 mcg (2,000 unit) capsule Vitamin D3 50 mcg (2,000 unit) capsule Take 1 capsule every day by oral route. dilTIAZem CD (CARDIZEM CD) 120 mg 24 hr capsule Take 1 capsule (120 mg total) by mouth 1 (one) time each day. 11/30/2024 losartan (COZAAR) 50 mg tablet Take 1 tablet (50 mg total) by mouth 1 (one) time each day. potassium citrate (UROCIT-K) 10 mEq (1,080 mg) CR tablet PLEASE SEE ATTACHED FOR DETAILED DIRECTIONS pravastatin (PRAVACHOL) 10 mg tablet Take 1 tablet (10 mg total) by mouth at bedtime. 10/08/2024 added in this encounter Care Teams Brick Mason Relationship Specialty Start Date End Date Sugey Rice MD [address] [address] PCP - General Family Medicine 10/07/24 documented as of this encounter
--- OUTSIDE RECORDS SUMMARY | 2024-12-20 14:05 | XMS_ITS | Encounter Summary ---
Author Organization [facility] Address [address] [place] [address] Phone Care Team Providers Care Trucksmith Name Role Phone Sugey Rice MD Primary Care Provider [phone] Encounter Details Date Type Department Care Team (Late Contact Info) Description 07/22/2023 Documentation Only [facility] [place], [address] [place] [phone] Leonardo Stovall DO [address] [facility] [place] [address] Social History Tobacco Use Types [...] Visit [facility] [place] [facility] [place] [address] [place] [phone] Leonardo Stovall DO [address] [facility] [place] [address] documented as of this encounter Visit Diagnoses Not on filedocumented in this encounter Care Teams Trucksmith Relationship Specialty Start Date End Date Sugey Rice MD [address] [address] PCP - General Family Medicine 09/04/21 documented as of this encounter
--- OUTSIDE RECORDS SUMMARY | 2024-12-20 14:05 | XMS_ITS | Encounter Summary ---
Author Organization [facility] Address [address] [place] [address] Care Team Providers Care Research Physician Name Role Phone Sugey Rice MD Primary Care Provider [phone] Reason for Visit * Reason Comments Other Pre-op Encounter Details Date Type Department Care Team ([facility] st Contact Info) Description 03/15/2024 Telephone [facility] [place] [address] [address] Josef Loya MD 80 [place] [address] Other (Pre-op ) Social History Tobacco Use Types Packs/Day Years [...] PM EDT documented as of this encounter Miscellaneous Notes * Telephone Encounter - Basia Thorpe MA - 03/16/2024 6:53 AM EDT Pre op paperwork faxed to fax number provided confirmation received. documented in this encounter Plan of Treatment Upcoming Encounters Date Type Department Care Team (Late st Contact Info) Description 12/22/2024 10:00 AM EST [facility] [address] [place] [address] Gurjit Steele MD [address] [address] 06/29/2025 10:30 AM EDT Office Visit [facility] Urology [place] [address] [place] [phone] Josef Loya MD 80 [place] [address] documented as of this encounter Visit Diagnoses Not on filedocumented in this encounter Care Teams Research Physician Relationship Specialty Start Date End Date Sugey Rice MD [address] [place] [address] [address] [place] [address] PCP - General Family Medicine 05/05/23 documented as of this encounter
--- OUTSIDE RECORDS SUMMARY | 2024-12-20 14:05 | XMS_ITS | Clinical Summary ---
Author Organization [facility] 299 [facility] Address [address] [place] [address] Phone Care Team Providers Care Director Of Acquisition Marketing Name Role Phone Sugey Rice MD Primary Care Provider [phone] Allergies Active Allergy Reactions Criticality Noted Date Comments Amoxicillin 12/10/2024 Ciprofloxacin Hcl 12/10/2024 Latex 12/10/2024 Medications Medication Sig Dispensed Refills Start Date End Date Status pravastatin (PRAVACHOL) 10 mg tablet Take 1 tablet (10 mg total) by mouth at bedtime. 10/08/2024 Active potassium citrate (UROCIT-K) 10 mEq (1,080 mg) CR tablet PLEASE SEE ATTACHED FOR DETAILED DIRECTIONS Active losartan (COZAAR) 50 mg tablet Take 1 tablet (50 mg total) by mouth 1 (one) time each day. Active dilTIAZem CD (CARDIZEM CD) 120 mg 24 hr capsule Take 1 capsule (120 mg total) by mouth 1 (one) time each day. 11/30/2024 Active cholecalciferol (VITAMIN D-3) 50 mcg (2,000 unit) capsule Vitamin D3 50 mcg (2,000 unit) capsule Take 1 capsule every day by oral route. Active Eliquis 5 mg tablet Take 1 tablet (5 mg total) by mouth 2 (two) times a day. 11/29/2024 Active omeprazole (PriLOSEC) [address] capsuleIndicatio ns:GERD (gastroesophagea l reflux disease) Take 1 capsule (40 mg total) by mouth 1 (one) time each day. 90 each 3 12/10/2024 12/10/2025 Active omeprazole (PriLOSEC) [address] capsuleIndicatio ns:GERD (gastroesophagea l reflux disease) TAKE 1 CAPSULE BY MOUTH EVERY DAY 90 capsule 12/07/2024 12/10/2024 Discontinue d(Reorder) Encounters Date Type Department Care Team Description 12/10/2024 9:00 AM EST Office Visit Gastroenterology - 299 [address] [place] [address] Nano Brown MD Irritable bowel syndrome without diarrhea (Primary Dx); GERD (gastroesophageal reflux disease); Colon cancer screening from Last 3 Months Surgical History Surgery Date Site/Laterality Comments COLONOSCOPY [...] on file Obstetrics History Plan of Treatment Health Maintenance Due Date Last Done Comments Breast Cancer Screening 1955 Cholesterol Screening (Lipid Panel) 10/08/2024 Depression Screening 10/08/2024 Falls Risk Assessment 10/08/2024 Hepatitis C Screening 10/08/2024 Medicare Annual Wellness Visit 10/08/2024 Osteoporosis Screening (Bone Density Screening) 10/08/2024 Social Influencers of Health Screening 10/08/2024 Hypertension/CHF/CAD Annual BMP Blood Test 03/22/2025 03/22/2024, 03/03/2024 Colorectal Cancer Screening: Colonoscopy 07/04/2030 07/04/2020 DTaP,Tdap,and Td Vaccines (3 - Td or Tdap) 10/24/2033 10/24/2023, 04/17/2012 Zoster Vaccines Completed 05/08/2022, 03/0 03/2019, 07/19/2014 Pneumococcal Vaccine: 65+ Years Completed 07/17/2022, 07/19/2021, 07/19/2020 RSV Immunization Patients 60+ Years Old Completed 07/11/2023 Influenza Vaccine Completed 08/03/2024, , 08/05/2022, Additional history exists COVID-19 Vaccine Completed 08/11/2024, , 08/03/2022, Additional history exists HIB Vaccines Aged Out No longer eligi [...] to complete this topic RSV Immunization Patients Under 20 months Aged Out No longer eligible based on patient's age to complete this topic Varicella Vaccines Aged Out No longer eligible based on patient's age to complete this topic Procedures Procedure Name Priority Date/Time Associated Diagnosis Comments COLONOSCOPY Routine 07/04/2020 9:41 AM EDT from Last 3 Months or Most Recently Relevant to Health Maintenance Results * COLONOSCOPY (07/04/2020 9:41 AM EDT) Anatomical Region Laterality Modality Endoscopy Historical Provider GI~PROCEDURE ORDE VANESSA from Last 3 Months or Most Recently Relevant to Health Maintenance Care Teams Director Of Acquisition Marketing Relationship Specialty Start Date End Date Sugey Rice MD [address] [address] PCP - General Family Medicine 10/07/24
--- OUTSIDE RECORDS SUMMARY | 2024-12-20 14:05 | XMS_ITS | Encounter Summary ---
Author Organization [facility] Address [address] [place] [address] Care Team Providers Care College President Name Role Phone Sugey Rice MD Primary Care Provider [phone] Encounter Details Date Type Department Care Team (Late st Contact Info) Description 01/02/2022 Erroneous Encounter [facility]PT [address] [place] [address] Provider, MD Frank Social History Tobacco Use [...] AM EST [facility] [address] [place] [address] Gurjit Steele MD 31 [facility] [address] [place] [address] 06/29/2025 10:30 AM EDT Office Visit [facility] Urology [place] [address] [place] [phone] Josef Loya MD 80 [place] [address] documented as of this encounter Visit Diagnoses Not on filedocumented in this encounter Care Teams College President Relationship Specialty Start Date End Date Sugey Rice MD [address] [place] [address] PCP - General Family Medicine 05/05/23 documented as of this encounter
--- OUTSIDE RECORDS SUMMARY | 2024-12-20 14:05 | XMS_ITS | Encounter Summary ---
Author Organization [facility] Address [address] [place] [address] Phone Care Team Providers Care Treatment Manager Name Role Phone Sugey Rice MD Primary Care Provider [phone] Encounter Details Date Type Department Care Team (Late st Contact Info) Description 10/08/2024 Telephone [facility] [place], [address] [place] [address] Brook Velez [address] [place] [address] Social History Tobacco Use Types [...] if ok to start. Thanks in advance! [phone] documented in this encounter Plan of Treatment Upcoming Encounters Date Type Department Care Team (Late st Contact Info) Description 05/03/2025 4:15 PM EDT Office Visit [facility] [address] [place] [phone] Leonardo Stovall DO [address] [place] [address] documented as of this encounter Visit Diagnoses Not on filedocumented in this encounter Care Teams Treatment Manager Relationship Specialty Start Date End Date Sugey Rice MD [address] [address] PCP - General Family Medicine 09/04/21 documented as of this encounter
--- OUTSIDE RECORDS SUMMARY | 2024-12-20 14:06 | XMS_ITS | Encounter Summary ---
Author Organization [facility] Address [address] [place] [address] Phone Care Team Providers Care Ornamental Metal Worker Name Role Phone Sugey Rice MD Primary Care Provider [phone] Encounter Details Date Type Department Care Team (Late st Contact Info) Description 03/19/2024 Documentation Only [facility], [address] [facility] [place] [phone] [place] [address] [place] [address] Social History Tobacco Use Types [...] Visit [facility] [place] [address] [place] [phone] Leonardo Stovall [address] [facility] [place] [address] documented as of this encounter Visit Diagnoses Not on filedocumented in this encounter Care Teams Ornamental Metal Worker Relationship Specialty Start Date End Date Sugey Rice MD [address] [phone] PCP - General Family Medicine 09/04/21 documented as of this encounter
--- OUTSIDE RECORDS SUMMARY | 2024-12-20 14:06 | XMS_ITS | Encounter Summary ---
Author Organization [facility] Address [address] [place] [address] Phone Care Team Providers Care Cured Meats Supervisor Name Role Phone Sugey Rice MD Primary Care Provider Encounter Details Date Type Department Care Team (Late st Contact Info) Description 04/28/2024 Documentation Only [facility] [place], [address] [place] [address] Leonardo Stovall DO [address] [facility] [place] [address] Social History Tobacco Use Types [...] Visit [facility] [place] [facility] [place] [address] [place] [phone] Leonardo Stovall DO [address] [facility] [place] [address] documented as of this encounter Visit Diagnoses Not on filedocumented in this encounter Care Teams Cured Meats Supervisor Relationship Specialty Start Date End Date Sugey Rice MD [address] [phone] PCP - General Family Medicine 09/04/21 documented as of this encounter
--- OUTSIDE RECORDS SUMMARY | 2024-12-20 14:07 | XMS_ITS | Encounter Summary ---
Author Organization [facility] Address [address] [place] [address] Phone Care Team Providers Care Railroad Repairer Name Role Phone Sugey Rice MD Primary Care Provider [phone] Encounter Details Date Type Department Care Team (Late Contact Info) Description 07/25/2023 Documentation Only [facility] [place], [address] [facility] [place] [address] Leonardo Stovall DO [address] [facility] [place] [address] Social History Tobacco Use Types [...] Visit [facility] [place] [facility] [place] [address] [place] [phone] Leonardo Stovall DO [address] [facility] [place] [address] documented as of this encounter Visit Diagnoses Not on filedocumented in this encounter Care Teams Railroad Repairer Relationship Specialty Start Date End Date Sugey Rice MD [address] [phone] PCP - General Family Medicine 09/04/21 documented as of this encounter
--- OUTSIDE RECORDS SUMMARY | 2024-12-20 14:07 | XMS_ITS | Clinical Summary ---
Author Organization [facility], Address [address] [place] [address] [place] [address] Phone Care Team Providers Care Furnace Utility Operator Name Role Phone Sugey Rice MD Primary Care Provider [phone] Allergies Active Allergy Reactions Criticality Noted Date Comments Amoxicillin Other (see comments) 09/06/2021 Ciprofloxacin Hives,Other (see comments) 09/06/2021 Latex Other (see comments) 09/06/2021 Varicella-Zoster Immune Glob Swelling 05/13/2019 swelling and itching to arm for over a week after she had vaccine Zoster Vac Recomb Adjuvanted Itching,Other (see comments) 09/06/2021 Medications Cholecalcifero l 50 MCG (1999) capsule 1 capsule at bed time Active levothyroxine (SYNTHROID, LEVOTHROID) 75 MCG tablet levothyroxine 75 mcg tablet TAKE 1 TABLET BY MOUTH EVERY DAY Active omeprazole (PriLOSEC) [address] capsule omeprazole 40 mg capsule,delayed release Active losartan (Cozaar) 50 MG tablet Take 1 tablet (50 mg total) by mouth 1 (one) time each day 90 tablet 3 08/24/20 24 2024 Active potassium citrate 10 MEQ (1080 MG) CR tablet Take 2 tablets (20 mEq total) by mouth in the morning and 2 tablets (20 mEq total) at noon and 2 tablets (20 mEq total) in the evening. Take with meals. Do not crush, chew, or split.. 540 tablet 3 08/24/20 24 2024 Active pravastatin (PRAVACHOL) 10 MG tablet Take 10 mg by mouth 1 (one) time each day Active dilTIAZem CD (CARDIZEM CD) 120 MG 24 hr capsule Take 120 mg by mouth 1 (one) time each day Active apixaban (Eliquis) 5 MG tablet Take 5 mg by mouth in the morning and 5 mg in the evening. Active aspirin (Samra Aspirin EC Low Dose) 81 MG EC tablet Take 1 tablet by mouth 1 (one) time each day 2024 Discontinued amLODIPine (NORVASC) 5 MG tabletIndicati ons:Hypertensi ve heart and chronic kidney disease without heart failure, with stage 1 through stage 4 chronic kidney disease, or unspecified chronic kidney disease,Acute injury of kidney,Stage 3a chronic kidney disease (HCC) Take 2 tablets (10 mg total) by mouth 1 (one) time each day 180 tablet 4 12/16/19 24 2024 Discontinued Active Problems Problem Noted Date Diagnosed Date [...] Encounters Date Type Department Care Team Description 12/17/2024 Documentation Only [facility], [address] [place] [address] Lissett Zacarias [place] 12/10/2024 2:00 PM EST Office Visit [facility], [address] [place] [address] Leonardo Stovall DO Stage 3a chronic kidney disease (HCC) (Primary Dx); Hypertensive heart and chronic kidney disease without heart failure, with stage 1 through stage 4 chronic kidney disease, or unspecified chronic kidney disease; Uric acid renal calculus; Essential hypertension 12/10/2024 Documentation Only [facility], [address] [id number] Lissett Zacarias MA 10/24/2024 Refill [facility], [address] [facility] [phone] Leonardo Stovall DO 10/08/2024 Telephone [facility], [address] [phone] Brook Velez from Last 3 Months Immunizations Name Administration Dates Next Due Influenza Split High Dose Pr eservative Free IM 07/01/2020 Influenza TIV (IM) 08/07/2016 Influenza, Quadrivalent, Pre servative Free 08/12/2019,08/12/2019,08/18/2018,08/18,07/12/2017,07/12/2017 Influenza, Unspecified 07/28/2021,08/07/2016 Pfizer SARS-COV-2 08/10/2021,01/07/2021,12/17/19 21 Pneumococcal Conjugate 13-Valent 07/19/2020 Pneumococcal Polysaccharide 07/19/2021 Shingrix 05/08/2022,01/19/2019 Tdap 04/17/2012 Zoster 01/19/2019,07/19/2014 Family History Medical History Relation Comments Cancer Mother Diabetes Mother Hypertension Mother Kidney disease Sibling 1 Son - high insurance verify rep Cancer Sibling 2 brother-SCC Relation Status Comments [...] Office Visit [facility] [address] [place] [address] Leonardo Stovall, [address] [place] [id number] Health Maintenance Due Date Last Done Comments Breast Cancer Screening 1955 Colorectal Cancer Screening: Annual FOBT 2004 Colorectal Cancer Screening: Colonoscopy 2004 Colorectal Cancer Screening: Sigmoidoscopy 2004 Pneumococcal Vaccine: 65+ Years Completed 07/17/2022, 07/19/2021, 07/19/2020 Influenza Vaccine Completed 08/03/2024, , 07/28/2021, Additional history exists Hepatitis B Vaccine Aged Out No longe [...] Acid 7.6(H) 3.0 - 7.2 mg/dL [facility] Comment:Therapeutic target f or gout patients: <6.0 Blood (Blood, Venous) 10/06/2024 7:41 AM EST 10/06/2024 Leonardo Stovall DO LAB BLOOD ORDERABLES Final Resu lt [facility] [address] [place] [address] * (ABNORMAL) Renal Function Panel (10/06/2024 7:41 AM EST) Glucose 118(H) 70 - 99 mg/dL [facility] BUN 27 8 - 27 mg/dL [facility] Creatinine 1.24(H) 0.57 - 1.00 mg/dL [facility] eGFR CKD-EPI CR 2020 47(L) >59 mL/min/1.7 3 [facility] BUN/Creatinine Ratio 22 12 - 28 [facility] Sodium 138 134 - 144 mmol/L [facility] Potassium 4.9 3.5 - 5.2 mmol/L [facility] Chloride 100 96 - 106 mmol/L [facility] Bicarbonate (CO2) 23 20 - 29 mmol/L [facility] Calcium 9.6 8.7 - 10.3 mg/dL [facility] Albumin 4.2 3.9 - 4.9 g/dL [facility] Phosphorus 3.7 3.0 - 4.3 mg/dL [facility] Blood (Blood, Venous) 10/06/2024 7:41 AM EST 10/06/2024 Leonardo Stovall DO LAB BLOOD ORDERABLES Final Resu lt [facility] [address] [place] [address] from Last 3 Months Insurance [employer] MEDICARE Care Teams Furnace Utility Operator Relationship Specialty Start Date End Date Sugey Rice MD [id number] [id number] PCP - General Family Medicine 09/04/21
--- OUTSIDE RECORDS SUMMARY | 2024-12-20 14:07 | XMS_ITS | Data Portability ---
Author Organization [facility], Main Office Address [address] [place] [id number] Care Team Providers Care Lawn Mower Operator Name Role Phone LAURA YUN Dba [phone] KELLY KAN Supply Chain Technician [facility] Inside Sales Account Manager [facility] ERAPY (RONY ALONSO) Orthopedic Surgeon GAVI YEPEZ Wire Photo Operator News JOSEPH BOONE Referring Provider [phone] HALEIGH CANTOR Hand Stoner NII YATES Primary Care Provider MALIK SHAHID Database Architect JULIETA LAND Asset Protection Assistant GURJIT STEELE Orthopedic Surgeon KASSIE LAZO Laborer Stores Assessment Encounter Date Assessment Date Assessment LastModified [...] w/ auto diff 2023 024 JOSHUA [facility], [address], [address], [place], [address], 08/05/2024 08:08:58 respirato ry allergen panel - [place] a 2023 024 JOSHUA [facility], [address], [address], [place], [address], 08/09/2024 10:05:57 BNP (B-type natriuret ic peptide), serum or plasma 2023 024 JOSHUA [facility], [address], [address], [place], [address], 08/09/2024 10:05:55 procalcit onin, serum 2023 024 JOSHUA [facility], [address], [address], [place], [address], 08/09/2024 10:05:56 magnesium , serum or plasma 2023 024 JOSHUA [facility], [address], [address], [place], [address], 10/07/2024 08:09:37 lipid panel, serum 2023 024 JOSHUA [facility], [address], [address], [place], [address], 10/07/2024 08:09:32 aspartate aminotran sferase/a lanine aminotran sferase, ratio, serum or plasma (OBS) 2023 024 JOSHUA [facility], [address], [address], [place], [address], 10/07/2024 08:09:33 TSH, ultra-sen sitive, serum 2023 024 JOSHUA [facility], [address], [address], [place], [address], 10/07/2024 08:09:36 HbA1c (hemoglob in A1c), blood 2023 024 JOSHUA [facility], [address], [address], [place], [address], 10/07/2024 08:09:34 vitamin D, 25-hydrox y, total, serum 2023 JOSHUA [facility], [address], [address], [place], [address], 10/07/2024 08:09:35 Referral sleep medicine referral - New onset of atrial flutter in obese pt. recommend polysomno gram. 2023 [facility] , [address], [place], [address], 11/09/2024 11:15:20 Procedures None recorded. Surgeries None recorded. Imaging XR, chest, 2 view 2023 024 [email or web address] In-Office Order, Internal Use Only DO Not Attach Compendium DO Not Attach Compendium, Do Not Delete/merge, [id number] 08/04/2024 19:53:34 electroca rdiogram 2023 024 [email or web address] In-Office Order, Internal Use Only DO Not Attach Compendium DO Not Attach Compendium, Do Not Delete/merge, [id number] 08/25/2024 10:25:17 MAMMO, screening , bilateral - Perform Diagnosti c Mammogram and Breast Ultrasoun d if needed / Perform Ultrasoun d Guided Aspiratio n and/or Breast Biopsy if warranted 2023 024 [facility], [address], [place], [address], 11/04/2024 11:16:20 Medication Orders Flonase Sensimist 27.5 mcg/actua tion nasal spray,yakelin pension 2023 024 AWENDAW [id number], [address], [place], [address], 08/03/2024 13:53:59 Saline Mist 0.65 % nasal spray aerosol 2023 024 [id number], [address], [place], [address], 08/03/2024 13:53:58 albuterol sulfate HFA 90 mcg/actua tion aerosol inhaler 2023 024 [id number], [address], [place], [address], 08/03/2024 13:55:03 Patient TargetsNo targets recorded. Patient Instructions Encounter Date Encounter Id Patient Instructions Last Modified By Organization Details Last Modified Time 08/03/2024 [id number] allergies: care instructions [email or web address] Not available 08/03/2024 13:53:54 saline nasal washes: care instructions [email or web address] Not available 08/03/2024 13:53:54 cough: care instructions [email or web address] Not available 08/03/2024 13:48:08 10/05/2024 [id number] advance care planning: care instructions [email or web address] Not available 10/05/2024 10:34:44 preventing falls : care instructions [email or web address] Not available 10/05/2024 10:34:44 medicare preventive services guide (female 74yrs and under) [email or web address] Not available 10/05/2024 10:34:44 well visit, over 65: care instructions [email or web address] Not available 10/05/2024 10:34:44 11/04/2024 [id number] During [facility] f/u call, all current and discharge medications (OTC, herbal therapies, supplements) reviewed and reconciled with patient, including potential side effects, drug interactions, instructions, and the consequences of not taking medication. Reviewed potential barriers to medication adherence, such as side effects from medication or cost of medication. [email or web address] Not available 11/04/2024 09:14:17 11/09/2024 [id number] hypothyroidism: care instructions [email or web address] Not available 11/09/2024 11:00:23 At [facility] follow up visit, all current and discharge medications (OTC, herbal therapies, supplements) reviewed and reconciled with patient and or caregiver, including potential side effects, drug interactions, instructions, and the consequences of not taking medication. Reviewed potential barriers to medication adherence, such as side effects from medication or cost of medication. [email or web address] Not available 11/09/2024 10:21:09 Reason for Referral [...] 1.019 1.005- 1.030 normal Not Available [facility] ([facility]) [address] [place], [address], 08/05/2024 08:08:57 08/04/2008/05/2024 URINA LYSIS , ROUTI NE pH 6.0 5.0-7. 5 normal Not Available [facility] ([facility]) [address] [place], [address], 08/05/2024 08:08:57 08/04/2008/05/2024 URINA LYSIS , ROUTI NE urine-color Yellow yellow Not Available [facility]) [address] [place], [address], 08/05/2024 08:08:57 08/04/2008/05/2024 URINA LYSIS , ROUTI NE appearance Clear clear Not Available [facility] ([facility]) [address] [place], [address], 08/05/2024 08:08:57 08/04/2008/05/2024 URINA LYSIS , ROUTI NE WBC esterase Negati ve negati ve Not Available [facility] ([facility]) [address] [place], [address], 08/05/2024 08:08:57 08/04/20 24 08/05/2024 URINA LYSIS , ROUTI NE protein Negati ve negati ve/tra ce Not Available [facility] ([facility]) [address] [facility], [place], [address], 08/05/2024 08:08:57 08/04/20 24 08/05/2024 URINA LYSIS , ROUTI NE glucose Negati ve negati ve Not Available [facility] ([facility]) [address] [place], [address], 08/05/2024 08:08:57 08/04/20 24 08/05/2024 URINA LYSIS , ROUTI NE ketones Negati ve negati ve Not Available [facility] ([facility]) [address] [place], [address], 08/05/2024 08:08:57 08/04/20 24 08/05/2024 URINA LYSIS , ROUTI NE occult blood Negati ve negati ve Not Available [facility] ([facility]) [address] [place], [address], 08/05/2024 08:08:57 08/04/20 24 08/05/2024 URINA LYSIS , ROUTI NE bilirubin Negati ve negati ve Not Available [facility] ([facility]) [address] [place], [address], 08/05/2024 08:08:57 08/04/20 24 08/05/2024 URINA LYSIS , ROUTI NE urobilinogen ,semi-qn 0.2 mg/dL 0.2-1. 0 normal Not Available [facility] ([facility]) [address] [place], [address], 08/05/2024 08:08:57 08/04/20 24 08/05/2024 URINA LYSIS , ROUTI NE nitrite, urine Negati ve negati ve Not Available [facility] ([facility]) [address] [facility], [place], [address], 08/05/2024 08:08:57 08/04/20 24 08/05/2024 URMARCO ANTONIO LYSIS , ANDIE NE microscopic examination Commen t Adwoa sherman ws if indic ated. Not Available [facility] ([facility]) [address] [facility], [place], [address], 08/05/2024 08:08:57 08/04/20 24 08/05/2024 CBC WITH DIFFE RENTI AL/PL ATELE T WBC 5.9 x10e3 /uL 3.4-10 .8 normal Not Available [facility] ([facility]) [address] [facility], [place], [address], 08/05/2024 08:08:58 08/04/20 24 08/05/2024 CBC WITH DIFFE RENTI AL/PL ATELE T RBC 4.59 x10e6 /uL 3.77-5 .28 normal Not Available [facility] ([facility]) [address] [facility], [place], [address], 08/05/2024 08:08:58 08/04/20 24 08/05/2024 CBC WITH DIFFE RENTI AL/PL ATELE T hemoglobin 13.9 g/dL 11.1-1 5.9 normal Not Available [facility] ([facility]) [address] [facility], [place], [address], 08/05/2024 08:08:58 08/04/20 24 08/05/2024 CBC WITH DIFFE RENTI AL/PL ATELE T hematocrit 43.2 % 34.0-4 6.6 normal Not Available [facility] ([facility]) [address] [facility], [place], [address], 08/05/2024 08:08:58 08/04/20 24 08/05/2024 CBC WITH DIFFE RENTI AL/PL ATELE T MCV 94 fL 79-97 normal Not Available [facility] ([facility]) [address] [facility], [place], [address], 08/05/2024 08:08:58 08/04/20 24 08/05/2024 CBC WITH DIFFE RENTI AL/PL ATELE T MCH 30.3 pg 26.6-3 3.0 normal Not Available [facility] ([facility]) [address] [facility], [place], [address], 08/05/2024 08:08:58 08/04/20 24 08/05/2024 CBC WITH DIFFE RENTI AL/PL ATELE T MCHC 32.2 g/dL 31.5-3 5.7 normal Not Available [facility] ([facility]) [address] [facility], [place], [address], 08/05/2024 08:08:58 08/04/20 24 08/05/2024 CBC WITH DIFFE RENTI AL/PL ATELE T RDW 11.7 % 11.7-1 5.4 Not Available [facility] ([facility]) [address] [facility], [place], [address], 08/05/2024 08:08:58 08/04/20 24 08/05/2024 CBC WITH DIFFE RENTI AL/PL ATELE T platelets 182 x10e3 /uL 150-45 0 normal Not Available [facility] ([facility]) [address] [facility], [place], [address], 08/05/2024 08:08:58 08/04/20 24 08/05/2024 CBC WITH DIFFE RENTI AL/PL ATELE T neutrophils 64 % not estab. normal Not Available [facility] ([facility]) [address] [place], [address], 08/05/2024 08:08:58 08/04/20 24 08/05/2024 CBC WITH DIFFE RENTI AL/PL ATELE T lymphs 25 % not estab. normal Not Available [facility] ([facility]) [address] [facility], [place], [address], 08/05/2024 08:08:58 08/04/20 24 08/05/2024 CBC WITH DIFFE RENTI AL/PL ATELE T monocytes 7 % not estab. normal Not Available [facility] ([facility]) [address] [facility], [place], [address], 08/05/2024 08:08:58 08/04/20 24 08/05/2024 CBC WITH DIFFE RENTI AL/PL ATELE T eos 3 % not estab. normal Not Available [facility] ([facility]) [address] [facility], [place], [address], 08/05/2024 08:08:58 08/04/20 24 08/05/2024 CBC WITH DIFFE RENTI AL/PL ATELE T basos 1 % not estab. normal Not Available [facility] ([facility]) [address] [facility], [place], [address], 08/05/2024 08:08:58 08/04/20 24 08/05/2024 CBC WITH DIFFE RENTI AL/PL ATELE T immature cells WORM SORTER Not Available [facility] ([facility]) [address] [place], [address], 08/05/2024 08:08:58 08/04/20 24 08/05/2024 CBC WITH DIFFE RENTI AL/PL ATELE T neutrophils (absolute) 3.8 x10e3 /uL 1.4-7. 0 normal Not Available [facility] ([facility]) [address] [place], [address], 08/05/2024 08:08:58 08/04/20 24 08/05/2024 CBC WITH DIFFE RENTI AL/PL ATELE T lymphs (absolute) 1.5 x10e3 /uL 0.7-3. 1 normal Not Available [facility] ([facility]) [address] [place], [address], 08/05/2024 08:08:58 08/04/20 24 08/05/2024 CBC WITH DIFFE RENTI AL/PL ATELE T monocytes(ab solute) 0.4 x10e3 /uL 0.1-0. 9 normal Not Available [facility] ([facility]) [address] [facility], [place], [address], 08/05/2024 08:08:58 08/04/20 24 08/05/2024 CBC WITH DIFFE RENTI AL/PL ATELE T eos (absolute) 0.2 x10e3 /uL 0.0-0. 4 normal Not Available [facility] ([facility]) [address] [facility], [place], [address], 08/05/2024 08:08:58 08/04/20 24 08/05/2024 CBC WITH DIFFE RENTI AL/PL ATELE T baso (absolute) 0.1 x10e3 /uL 0.0-0. 2 normal Not Available [facility] ([facility]) [address] [facility], [place], [address], 08/05/2024 08:08:58 08/04/20 24 08/05/2024 CBC WITH DIFFE RENTI AL/PL ATELE T immature granulocytes 0 % not estab. Not Available [facility] ([facility]) [address] [place], [address], 08/05/2024 08:08:58 08/04/20 24 08/05/2024 CBC WITH DIFFE RENTI AL/PL ATELE T immature grans (abs) 0.0 x10e3 /uL 0.0-0. 1 Not Available [facility] ([facility]) [address] [place], [address], 08/05/2024 08:08:58 08/04/20 24 08/05/2024 CBC WITH DIFFE RENTI AL/PL ATELE T NRBC WORM SORTER Not Available [facility] ([facility]) [address] [facility], [place], [address], 08/05/2024 08:08:58 08/04/20 24 08/05/2024 CBC WITH DIFFE RENTI AL/PL ATELE T hematology comments: WORM SORTER Not Available [facility] ([facility]) [address] [facility], [place], [address], 08/05/2024 08:08:58 08/04/20 24 08/05/2024 URINA LYSIS , COMPL ETE microscopic examination See below: Micro scopi c was indic ated and was perfo rmed. Not Available [facility] ([facility]) [address] [facility], [place], [address], 08/05/2024 08:08:59 08/04/20 24 08/05/2024 URINA LYSIS , COMPL ETE WBC 0-5 /hpf 0 - 5 Not Available [facility] ([facility]) [address] [facility], [place], [address], 08/05/2024 08:08:59 08/04/20 24 08/05/2024 URINA LYSIS , COMPL ETE RBC 0-2 /hpf 0 - 2 Not Available [facility] ([facility]) [address] [facility], [place], [address], 08/05/2024 08:08:59 08/04/20 24 08/05/2024 URINA LYSIS , COMPL ETE epithelial cells (non renal) None seen /hpf 0 - 10 Not Available [facility] ([facility]) [address] [facility], [place], [address], 08/05/2024 08:08:59 08/04/20 24 08/05/2024 URINA LYSIS , COMPL ETE epithelial cells (renal) WORM SORTER Not Available [facility] ([facility]) [address] [facility], [place], [address], 08/05/2024 08:08:59 08/04/20 24 08/05/2024 URINA LYSIS , COMPL ETE casts None seen /lpf none seen Not Available [facility] ([facility]) [address] [facility], [place], [address], 08/05/2024 08:08:59 08/04/20 24 08/05/2024 URINA LYSIS , COMPL ETE cast type WORM SORTER Not Available [facility] ([facility]) [address] [facility], [place], [address], 08/05/2024 08:08:59 08/04/20 24 08/05/2024 URINA LYSIS , COMPL ETE crystals WORM SORTER Not Available [facility] ([facility]) [address] [facility], [place], [address], 08/05/2024 08:08:59 08/04/20 24 08/05/2024 URINA LYSIS , COMPL ETE crystal type WORM SORTER Not Available [facility] [address] [facility], [place], [address], 08/05/2024 08:08:59 08/04/20 24 08/05/2024 URINA LYSIS , COMPL ETE mucus threads WORM SORTER Not Available [facility] ([facility]) [address] [facility], [place], [address], 08/05/2024 08:08:59 08/04/20 24 08/05/2024 URINA LYSIS , COMPL ETE bacteria Few none seen/f ew Not Available [facility] ([facility]) [address] [facility], [place], [address], 08/05/2024 08:08:59 08/04/20 24 08/05/2024 URINA LYSIS , COMPL ETE yeast WORM SORTER Not Available [facility] ([facility]) [address] [facility], [place], [address], 08/05/2024 08:08:59 08/04/20 24 08/05/2024 URINA LYSIS , COMPL ETE trichomonas WORM SORTER Not Available [facility] ([facility]) [address] [place], [address], 08/05/2024 08:08:59 08/04/20 24 08/05/2024 URINA LYSIS , COMPL ETE comment WORM SORTER Not Available [facility] ([facility]) [address] [place], [address], 08/05/2024 08:08:59 08/04/20 24 08/05/2024 UA WITH CULTU RE REFLE X urinalysis reflex Commen t This speci men will not refle x to a Urine Cultu re. Not Available [facility] ([facility]) [address] [place], [address], 08/05/2024 08:08:59 08/04/20 24 08/05/2024 BASIC METAB OLIC PANEL (8) glucose 129 mg/dL 70-99 above high normal Not Available [facility] ([facility]) [address] [place], [address], 08/05/2024 08:09:00 08/04/20 24 08/05/2024 BASIC METAB OLIC PANEL (8) BUN 29 mg/dL 8-27 above high normal Not Available [facility] ([facility]) [address] [place], [address], 08/05/2024 08:09:00 08/04/20 24 08/05/2024 BASIC METAB OLIC PANEL (8) creatinine 1.59 mg/dL 0.57-1 .00 above high normal Not Available [facility] ([facility]) [address] [place], [address], 08/05/2024 08:09:00 08/04/20 24 08/05/2024 BASIC METAB OLIC PANEL (8) eGFR 35 mL/mi n/1.7 3 >59 below low normal Not Available [facility] ([facility]) [address] [place], [address], 08/05/2024 08:09:00 08/04/20 24 08/05/2024 BASIC METAB OLIC PANEL (8) BUN/creatini ne ratio 18 12-28 normal Not Available [facility] ([facility]) [address] [facility] [place], [address], 08/05/2024 08:09:00 08/04/20 24 08/05/2024 BASIC METAB OLIC PANEL (8) sodium 140 mmol/ L 134-14 4 normal Not Available [facility] ([facility]) [address] [facility] [place], [address], 08/05/2024 08:09:00 08/04/20 24 08/05/2024 BASIC METAB OLIC PANEL (8) potassium 4.8 mmol/ L 3.5-5. 2 normal Not Available [facility] ([facility]) [address] [facility], [place], [address], 08/05/2024 08:09:00 08/04/20 24 08/05/2024 BASIC METAB OLIC PANEL (8) chloride 103 mmol/ L 96-106 normal Not Available [facility] ([facility]) [address] [facility] [place], [address], 08/05/2024 08:09:00 08/04/20 24 08/05/2024 BASIC METAB OLIC PANEL (8) carbon dioxide, total 21 mmol/ L 20-29 normal Not Available [facility] ([facility]) [address] [place], [address], 08/05/2024 08:09:00 08/04/2008/05/2024 BASIC METAB OLIC PANEL (8) calcium 9.3 mg/dL 8.7-10 .3 normal Not Available [facility] ([facility]) [address] [facility] [place], [address], 08/05/2024 08:09:00 09/18/08/05/2024 B-TYP E NATRI URETI C PEPTI DE B-type natriuretic peptide 43.1 pg/mL 0.0-10 0.0 Sieme ns [facility] XP metho dolog y Not Available [facility] ([facility]) [address] [facility], [place], [address], 08/09/2024 10:05:55 08/04/2008/06/2024 PROCA LCITO SRAVANI procalcitoni n 0.06 NG/mL [...] ng/mL shoul d be inter prete d cuauhtemocin g into accou nt the patie nt's histo ry. It is recom brittnee d to retes t PCT withi n 6-24 hours if any lilia ntrat ions <2 ng/mL are obtai neela. Not Available [facility] ([facility]) [address] [facility], [place], [address], 08/09/2024 10:05:56 08/04/20 24 08/04/2024 ALLER GENS [...] >100. 00 Very High Not Available [facility] ([facility]) [address] [place], [address], 08/09/2024 10:05:57 08/04/20 24 08/07/2024 ALLER GENS W/TOT AL IGE AREA 1 immunoglobul in E, total 24 IU/mL 6-495 Not Available [facility]) [address] [place], [address], 08/09/2024 10:05:57 08/04/20 24 08/07/2024 ALLER GENS W/TOT AL IGE AREA 1 J668-QuI D pteronyssinu s <0.10 kU/L class 0 Not Available [facility] ([facility]) [address] [place], [address], 08/09/2024 10:05:57 08/04/20 24 08/07/2024 ALLER GENS W/TOT AL IGE AREA 1 Z882-HrF D farinae <0.10 kU/L class 0 Not Available [facility] ([facility]) [address] [place], [address], 08/09/2024 10:05:57 08/04/20 24 08/07/2024 ALLER GENS W/TOT AL IGE AREA 1 V743-OxW CAT dander <0.10 kU/L class 0 Not Available [facility] ([facility]) [address] [place], [address], 08/09/2024 10:05:57 08/04/20 24 08/07/2024 ALLER GENS W/TOT AL IGE AREA 1 F353-JaW dog dander <0.10 kU/L class 0 Not Available [facility] ([facility]) [address] [place], [address], 08/09/2024 10:05:57 08/04/20 24 08/07/2024 ALLER GENS W/TOT AL IGE AREA 1 f481-BqV bermuda grass <0.10 kU/L class 0 Not Available [facility] ([facility]) [address] [place], [address], 08/09/2024 10:05:57 08/04/20 24 08/07/2024 ALLER GENS W/TOT AL IGE AREA 1 q421-BdR pat grass <0.10 kU/L class 0 Not Available [facility] ([facility]) [address] [place], [address], 08/09/2024 10:05:57 08/04/20 24 08/07/2024 ALLER GENS W/TOT AL IGE AREA 1 M140-MfI cockroach, iraqi <0.10 kU/L class 0 Not Available [facility] ([facility]) [address] [place], [address], 08/09/2024 10:05:57 08/04/20 24 08/07/2024 ALLER GENS W/TOT AL IGE AREA 1 N257-CuG penicillium chrysogen <0.10 kU/L class 0 Not Available [facility] ([facility]) [address] [place], [address], 08/09/2024 10:05:57 08/04/20 24 08/07/2024 ALLER GENS W/TOT AL IGE AREA 1 E974-LvY cladosporium herbarum <0.10 kU/L class 0 Not Available [facility] ([facility]) [address] [place], [address], 08/09/2024 10:05:57 08/04/20 24 08/07/2024 ALLER GENS W/TOT AL IGE AREA 1 L820-AxN aspergillus fumigatus <0.10 kU/L class 0 Not Available [facility] ([facility]) [address] [facility], [place], [address], 08/09/2024 10:05:57 08/04/20 24 08/07/2024 ALLER GENS W/TOT AL IGE AREA 1 R285-NmG alternaria alternata <0.10 kU/L class 0 Not Available [facility] ([facility]) [address] [facility], [place], [address], 08/09/2024 10:05:57 08/04/20 24 08/07/2024 ALLER GENS W/TOT AL IGE AREA 1 X875-LwT maple/box elder <0.10 kU/L class 0 Not Available [facility] ([facility]) [address] [facility], [place], [address], 08/09/2024 10:05:57 08/04/20 24 08/07/2024 ALLER GENS W/TOT AL IGE AREA 1 R097-EaX common silver birch <0.10 kU/L class 0 Not Available [facility] ([facility]) [address] [facility], [place], [address], 08/09/2024 10:05:57 08/04/20 24 08/07/2024 ALLER GENS W/TOT AL IGE AREA 1 F506-NnN cedar, mountain <0.10 kU/L class 0 Not Available [facility] ([facility]) [address] [facility], [place], [address], 08/09/2024 10:05:57 08/04/20 24 08/07/2024 ALLER GENS W/TOT AL IGE AREA 1 H897-RgE oak, white <0.10 kU/L class 0 Not Available [facility] ([facility]) [address], [place], [address], 08/09/2024 10:05:57 08/04/20 24 08/07/2024 ALLER GENS W/TOT AL IGE AREA 1 F998-NoV elm, hong konger <0.10 kU/L class 0 Not Available [facility] ([facility]) [address], [place], [address], 08/09/2024 10:05:57 08/04/20 24 08/07/2024 ALLER GENS W/TOT AL IGE AREA 1 X969-CvG walnut <0.10 kU/L class 0 Not Available [facility] ([facility]) [address], [place], [address], 08/09/2024 10:05:57 08/04/20 24 08/07/2024 ALLER GENS W/TOT AL IGE AREA 1 Y679-AyX maple leaf sycamore <0.10 kU/L class 0 Not Available [facility] ([facility]) [address], [place], [address], 08/09/2024 10:05:57 08/04/20 24 08/07/2024 ALLER GENS W/TOT AL IGE AREA 1 N431-FgV cottonwood <0.10 kU/L class 0 Not Available [facility] ([facility]) [address], [place], [address], 08/09/2024 10:05:57 08/04/20 24 08/07/2024 ALLER GENS W/TOT AL IGE AREA 1 S593-[id number] jazlyn, white <0.10 kU/L class 0 Not Available [facility] ([facility] [facility]) [address], [place], [address], 08/09/2024 10:05:57 08/04/20 24 08/07/2024 ALLER GENS W/TOT AL IGE AREA 1 D215-DsL white mulberry <0.10 kU/L class 0 Not Available [facility] ([facility]) [address] [facility], [place], [address], 08/09/2024 10:05:57 08/04/20 24 08/07/2024 ALLER GENS W/TOT AL IGE AREA 1 V634-ZnG ragweed, short <0.10 kU/L class 0 Not Available [facility] ([facility]) [address] [facility], [place], [address], 08/09/2024 10:05:57 08/04/20 24 08/07/2024 ALLER GENS W/TOT AL IGE AREA 1 [id number] mugwort <0.10 kU/L class 0 Not Available [facility] ([facility]) [address] [facility], [place], [address], 08/09/2024 10:05:57 08/04/20 24 08/07/2024 ALLER GENS W/TOT AL IGE AREA 1 [id number] pigweed, common <0.10 kU/L class 0 Not Available [facility] ([facility]) [address] [facility], [place], [address], 08/09/2024 10:05:57 08/04/20 24 08/07/2024 ALLER GENS W/TOT AL IGE AREA 1 V621-PcY sheep sorrel <0.10 kU/L class 0 Not Available [facility] ([facility]) [address] [facility], [place], [address], 08/09/2024 10:05:57 08/04/20 24 08/07/2024 ALLER GENS W/TOT AL IGE AREA 1 E586-CoZ mouse urine <0.10 kU/L class 0 Not Available [facility] ([facility]) [address] [place], [address], 08/09/2024 10:05:57 10/06/20 24 10/06/2024 LIPID PANEL cholesterol, total 183 mg/dL 100-19 9 normal Not Available [facility] ([facility]) [address] [facility] [place], [address], 10/07/2024 08:09:32 10/06/20 24 10/06/2024 LIPID PANEL triglyceride s 119 mg/dL 0-149 normal Not Available [facility] ([facility]) [address] [facility] [place], [address], 10/07/2024 08:09:32 10/06/20 24 10/06/2024 LIPID PANEL HDL cholesterol 44 mg/dL >39 normal Not Available [facility] ([facility]) [address] [facility] [place], [address], 10/07/2024 08:09:32 10/06/20 24 10/06/2024 LIPID PANEL VLDL cholesterol roxane 21 mg/dL 5-40 Not Available [facility] ([facility]) [address] [facility], [place], [address], 10/07/2024 08:09:32 10/06/20 24 10/06/2024 LIPID PANEL LDL chol calc ([facility]) 118 mg/dL 0-99 above high normal Not Available [facility] ([facility]) [address] [facility], [place], [address], 10/07/2024 08:09:32 10/06/20 24 10/06/2024 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 6 above high normal Predi abete s: 5.7 - 6.4 Diabe angela: >6.4 Glyce peña contr ol for adult s with diabe angela: <7.0 Not Available [facility] ([facility]) [address] [facility], [place], [address], 10/07/2024 08:09:34 10/06/20 24 10/07/2024 VITAM IN [...] um and D. Samantha chao [place]: [facility] . 2. Ashley garcia MF, Meg forte [place], Echo off[place] ANGEL, et al. Evalu ation , treat ment, and preve ntion of vitam in D defic iency : an Endoc rine Socie ty clini roxane pract ice guide line. JCEM. 2010; 96(7) :1911 -30. Not Available [facility] ([facility]) [address] [facility], [place], [address], 10/07/2024 08:09:35 10/06/20 24 10/07/2024 TSH RFX ON ABNOR MAL TO FREE T4 TSH 2.080 uIU/m L 0.450- 4.500 normal Not Available [facility] ([facility]) [address] [place], [address], 10/07/2024 08:09:35 10/06/20 24 10/07/2024 MAGNE SIUM magnesium 2.1 mg/dL 1.6-2. 3 normal Not Available [facility] ([facility]) [address] [place], [address], 10/07/2024 08:09:36 12/05/19 25 12/06/2024 LIPID PANEL cholesterol, total 140 mg/dL 100-19 9 normal Not Available [facility] ([facility]) [address] [place], [address], 12/07/2024 06:07:13 12/05/19 25 12/06/2024 LIPID PANEL triglyceride s 81 mg/dL 0-149 normal Not Available [facility] ([facility]) [address] [place], [address], 12/07/2024 06:07:13 12/05/19 25 12/06/2024 LIPID PANEL HDL cholesterol 48 mg/dL >39 normal Not Available [facility] ([facility]) [address] [place], [address], 12/07/2024 06:07:13 12/05/19 25 12/06/2024 LIPID PANEL VLDL cholesterol roxane 16 mg/dL 5-40 Not Available [facility] ([facility]) [address] [place], [address], 12/07/2024 06:07:13 12/05/19 25 12/06/2024 LIPID PANEL LDL chol calc ([facility]) 76 mg/dL 0-99 Not Available [facility] ([facility]) [address] [place], [address], 12/07/2024 06:07:13 0112/06/2024 LIPID 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 WSN: [id number] Orderi ng Physic efren: Shruti Yates Dictat ed By: Baron Batista MD Dictat ed Date/T kim: 7:50 pm Review ed By: Baron Batista MD Signed By: Baron Batista MD Signed Date/T kim: 7:50 pm Transc ribed By: LIZBETH Transc ribed Date/T kim: 7:50 pm Patien t Class: Outpat ient [facility] (Outpt Imaging) [address], [place], [address], 08/06/2024 09:44:09 08/04/20 24 08/04/2024 XR, chest , 2 view No observ ation record ed. [email or web address] In-Office Order Internal Use Only DO Not Attach Compendium DO Not Attach Compendium, Do Not Delete/merge, [id number] 08/06/2024 12:25:00 08/11/20 24 08/04/2024 [facility] metry * No observ ation record ed. [email or web address] [facility] [address] [facility], [place], [address], 08/11/2024 15:38:49 08/11/20 24 08/04/2024 compl ete [facility]FT [facility] h[facility] ator aren metry * No observ ation record ed. [email or web address] [facility] [address] [facility], [place], [address], 08/19/2024 09:53:29 08/25/20 24 08/25/2024 elect rocar diogr am No observ ation record ed. [email or web address] In-Office Order Internal Use Only DO Not Attach Compendium DO Not Attach Compendium, Do Not Delete/merge, [id number] 08/25/2024 11:33:52 08/25/20 24 elect rocar diogr am No observ ation record ed. [email or web address] In-Office Order Internal Use Only DO Not Attach Compendium DO Not Attach Compendium, Do Not Delete/merge, [id number] 08/25/2024 10:11:44 08/25/20 24 08/24/2024 CT, chest [...] raph dated Septem 2023. 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 [...] argelia. 3. Mild spleno megaly . WSN: [id number] Orderi ng Physic efren: Shruti Yates Dictat ed By: Benny Esparza MD Dictat ed Date/T kim: 4:57 pm Review ed By: Benny Esparza MD Signed By: Benny Esparza MD Signed Date/T kim: 4:57 pm Transc ribed By: LIZBETH Transc ribed Date/T kim: 4:47 pm Patien t Class: Outpat ient [facility] (Outpt Imaging) [address], [place], [address], 08/25/2024 17:40:54 08/25/20 24 08/25/2024 CT, chest , w/ contr ast No observ ation record ed. [email or web address] [facility] (Ct Scan) [address], [place], [address], 08/26/2024 13:39:24 10/05/20 24 11/03/2023 MAMMO , scree radha, digit al, bilat eral No observ ation record ed. Not Available 10/06 09:04:27 10/20/20 24 10/19/2024 XR, chest No observ ation record ed. [facility] (Medical Records) [address] [place], [address], 10/20/2024 10:36:09 10/28/20 24 10/28/2024 XR, chest No observ ation record ed. [facility] (Medical Records) [address] [place], [address], 10/28/2024 20:48:42 10/29/20 24 10/28/2024 XR, chest No observ ation record ed. [facility] (Medical Records) [address] [place], [address], 10/29/2024 13:01:51 10/29/20 24 10/29/2024 CT, angio gram, chest , w/ contr ast No observ ation record ed. [facility] (Medical Records) [address] [place], [address], 10/29/2024 17:02:39 11/04/20 24 11/04/2024 MAMMO , scree radha, digit al, bilat [...] g recomm ended. We will recall the deniseporsche marina. RECOMM ENDATI ON: Diagno stic 3D tomosy nthesi s of the left breast with schedu led ultras ound BI-RAD S: 0 Incomp lete - Need Additi onal Imagin g Evalua tion. Lay letter mailed to michael gray WSN: [id number] Orderi ng Physic efren: Shruti Yates Dictat ed By: Olga Lidia Rodriguez MD Dictat ed Date/T kmi: 11:10 am Review ed By: Olga Lidia Rodriguez MD Signed By: Olga Lidia Rodriguez MD Signed Date/T kim: 11:10 am Transc ribed By: LIZBETH Transc riptio n Date/T kim: 10:59 am Birads : Michael gray Class: Outpat ient [facility] (Outpt Imaging) [address] [place] [address], [address], 11/05/2024 09:17:42 11/04/20 24 11/04/2024 MAMMO , scree radha, bilat eral No observ ation record ed. [email or web address] [facility] [address], [place], [address], 11/04/2024 13:08:40 11/16/20 24 11/16/2024 mm digit [...] 1 (Negat anson) Lay letter mailed to michael gray WSN: [id number] Orderi ng Physic efren: Shruti Yates Dictat ed By: Kelle Kim MD Dictat ed Date/T kim: 11:24 am Review ed By: Kelle Kim MD Signed By: Kelle Kim MD Signed Date/T kim: 11:24 am Transc ribed By: CSB Transc riptio n Date/T kim: 12/31/ 24 11:23 am Birads : Patien t Class: Outpat ient [facility] (Outpt Imaging) [address], [place], [address], 11/16/2024 18:25:23 11/16/20 24 11/16/2024 MAMMO , scree radha, digit al, unila teral No observ ation record ed. [email or web address] [facility] [address] [place], [address], 11/16/2024 11:37:42 12/06/19 25 12/02/2024 NM, myoca rdial perfu francisco scan No observ ation record ed. [facility] (Medical Records) [address] [place], [address], 12/07/2024 06:21:05 Result Notes None recorded. Problems Name Problem SNOMED Code Status Onset Date Resolution Date Notes Provider Name and Address Organization Details Recorded Time Rosagarretta 766129909 Active PATSY Coon [facility] 3 10:55:09 Gastroeso phageal reflux disease 841948422 Active PATSY Coon, [facility] 3 10:55:09 Hypothyro idism 26177389 Active PATSY Coon [facility] 3 10:55:09 Labile hypertens ion due to being in a clinical environme nt 261854932 Active PATSY Coon [facility] 3 10:55:09 Hyperlipi demia 24246303 Active PATSY Coon [facility] 3 10:55:09 Fatigue 22166885 Completed 10/04/2023 Nii Yates MD [address] [facility] [address], [place], [address] , [facility] 3 09:05:45 Vitamin D deficienc y 67845538 Active PATSY Coon, [facility] 3 10:55:09 Fracture of phalanx of foot 29857071 Completed 11/19/2018 Genet moulton null, [facility] 9 14:39:03 Tubular adenoma 925705942 Active 2019 Dorene Sorensen [place] null, [facility] 3 10:55:09 Serum creatinin e above reference range 297005631 Completed 201910/04/2023 Nii Yates MD [address] [facility] [address], [place], [address], [facility] 3 09:06:18 Hypertens anson renal disease 97848672 Active 2020 Dorene Sorensen [place] null, [facility] 3 10:55:09 Chronic kidney disease stage 3A 919988440 Active 2021 Dorene Sorensen [place] null, [facility] 3 10:55:09 Kidney stone 64984146 Completed 202210/05/2024 Nii Yates MD [address] [facility] [address], [place], [address], [facility] 4 10:32:59 COVID-19 998118355 Completed 202210/04/2023 Nii Yates MD [address], [place], [address], [facility] 3 09:05:39 Laryngiti s 22906845 Completed 202210/04/2023 Nii Yates MD [address], [place], [address], [facility] 3 09:06:07 History of SARS-CoV- 2 391503621542 902294 Active 2022 Nii Yates MD [address], [place], [address], [facility] 3 09:05:33 Morbid obesity 421984804 Active 2022 Nii Yates MD [address], [place], [address], [facility] 3 09:22:38 Uric acid renal calculus 887092445 Active 2023 Nii Yates MD [address], [place], [address], [facility] 4 10:32:16 History of urinary stone 151992864 Active 2023 Nii Yates MD [address], [place], [address], [facility] 4 10:32:56 Prediabet es 575191503 Active 2023 Nii Yates MD [address], [place], [address], [facility] 4 09:53:05 Restricti ve lung disease 46992220 Active 2023 Nii Yates MD [address], [place], [address], [facility] 4 07:24:24 Moderate persisten t asthma 249273724 Active 2023 Nii Yates MD [address], [place], [address], [facility] 4 07:24:37 Nodule of lung 589641246 Active 2023 Nii Yates MD [address], [place], [address], [facility] 4 07:25:47 Atrial flutter 3969003 Active 2023 Janel Sandoval PA-C [address], [place], [address], [facility] 4 10:39:19 Asthma 095091900 Active 2024 Nii Yates MD [address], [place], [address], [facility] 5 09:11:37 Pulmonary hypertens ion 51529430 Active 2024 Nii Yates MD [address], [place], [address], [facility] 5 09:11:46 Notes:Some problems listed i n Document: #[id number] could not be added to this patient's chart. Please review this document and add these problems to the patient's chart manually as needed. Problem Notes None recorded. Procedures Surgical History Date Name Laterality Status Provider Name and Address Organization Details Recorded Time 11/16/20 24 mammography of left breast completed Bronwyn starks MA [facility] 11/16/2024 11:38:32 11/04/20 24 Most Recent Mammogram completed [facility] 11/04/2024 13:06:14 11/04/20 24 Mammogram Screening completed [facility] 11/04/2024 13:05:29 10/05/20 24 Advanced Care Planning completed Nica Gray [facility] 10/18/2024 10:50:18 09/23/20 24 arthroplasty of the carpometacarpal joint of the thumb completed Bronwyn starks MA [facility] 10/05/2024 10:14:05 03/29/20 24 ureterorenoscopy with fragmentation and removal of calculus of kidney completed Bronwyn starks MA [facility] 05/24/2024 10:39:56 10/04/20 23 Advanced Care Planning completed Nii Yates MD [address], [place], [address], [facility] 10/04/2023 08:28:24 12/19/19 23 Date of Last Pap Smear completed Annaleecookie Aponte [facility] 10/06/2023 16:01:08 08/28/20 22 Advanced Care Planning completed Nica Gray [facility] 08/29/2022 14:14:04 08/10/20 21 Advanced Care Planning completed Nii Yates MD [address], [place], [address], [facility] 08/10/2021 08:21:36 10/30/20 20 Most Recent Bone Density completed Bronwyn starks MA [facility] 08/28/2022 13:15:10 10/30/20 20 Dxa bone density study completed Bronwyn starks [facility] 08/28/2022 13:15:16 08/07/20 20 Six-Item Cognitive Test completed Bronwyn starks MA [facility] 08/07/2020 13:27:37 07/04/20 20 Date of Last Colonoscopy completed Amelia Arzate [facility] 07/05/2020 10:04:05 07/04/20 20 Colonoscopy completed Bronwyn starks MA [facility] 08/07/2020 13:22:40 11/27/19 19 repair of umbilical hernia completed Naima Yee [facility] 01/18/2019 13:05:42 06/17/20 18 procedure on tongue completed Jason Guevara MD [address], [place], [address], [facility] 01/18/2019 13:47:45 05/18/20 14 excision of mucous cyst of finger completed Bronwyn starks MA [facility] 08/10/2021 09:57:19 04/07/20 12 arthroscopic shoulder decompression completed Bronwyn starks MA [facility] 08/28/2022 13:13:52 11/17/18 98 Endometrial Ablation completed Bronwyn starks MA [facility] 08/28/2022 13:03:27 03/21/19 92 delivery completed Bronwyn starks MA [facility] 08/28/2022 13:14:33 01/12/19 85 delivery completed Bronwyn starks MA [facility] 08/28/2022 13:14:29 10/07/19 81 delivery completed Bronwyn starks MA [facility] 08/28/2022 13:14:44 Lig div&strpg short saph vn completed Kristie Dsouza [facility] 10/02/2021 11:19:55 Anesth shoulder procedure completed Kristie Dsouza [facility] 10/02/2021 11:19:55 Imaging Results Imaging Date Name Status LastModified by Organization Details LastModified Time 08/04/2024 XR, chest, 2 view completed [facility] (Outpt Imaging) [address] [place], [address], 08/06/2024 09:44:09 08/04/2024 XR, chest, 2 view completed [email or web address] In-Offi ce Order Internal Use Only DO Not Attach Compendium DO Not Attach Compendium, Do Not Delete/merge, [id number] 08/06/2024 12:25:00 08/04/2024 complete PFT w/ post bronchodilator spirometry* completed [address] [facility] [address] [place], [address], 08/11/2024 15:38:49 08/04/2024 complete PFT w/ post bronchodilator spirometry* completed [address] [facility] [address] [place], [address], 08/19/2024 09:53:29 08/25/2024 electrocardiogram completed [email or web address] In-Offi ce Order Internal Use Only DO Not Attach Compendium DO Not Attach Compendium, Do Not Delete/merge, [id number] 08/25/2024 11:33:52 08/25/2024 electrocardiogram completed [email or web address] In-Offi ce Order Internal Use Only DO Not Attach Compendium DO Not Attach Compendium, Do Not Delete/merge, [id number] 08/25/2024 10:11:44 08/24/2024 CT, chest, w/ contrast completed [facility] (Outpt Imaging) [address], [place], [address], 08/25/2024 17:40:54 08/25/2024 CT, chest, w/ contrast completed nathan [facility] (Ct Scan) [address] [place], [address], 08/26/2024 13:39:24 11/03/2023 MAMMO, screening, digital, bilateral completed [email or web address] Information not available 10/06/2024 09:04:27 10/19/2024 XR, chest completed [facility] (Medical Records) [address] [place], [address], 10/20/2024 10:36:09 10/28/2024 XR, chest completed [facility] (Medical Records) [address] [place], [address], 10/28/2024 20:48:42 10/28/2024 XR, chest completed [facility] (Medical Records) [address] [place], [address], 10/29/2024 13:01:51 10/29/2024 CT, angiogram, chest, w/ contrast completed [facility] (Medical Records) [address] [place], [address], 10/29/2024 17:02:39 11/04/2024 MAMMO, screening, digital, bilateral completed [email or web address] [facility] (Outpt Imaging) [address] [place], [address], 11/05/2024 09:17:42 11/04/2024 MAMMO, screening, bilateral completed [email or web address] [facility] [address], [place], [address], 11/04/2024 13:08:40 11/16/2024 mm digital mammo unilat left completed [facility] (Outpt Imaging) [address] [place], [address], 11/16/2024 18:25:23 11/16/2024 MAMMO, screening, digital, unilateral completed [email or web address] [facility] [address] [place], [address], 11/16/2024 11:37:42 12/02/2024 NM, myocardial perfusion scan completed [facility] (Medical Records) [address] [place], [address], 12/07/2024 06:21:05 Procedure Notes None recorded. Medical Equipment None Reported. Allergies Allergen ID Allergen Name Allergen Category Reaction Reaction Severity Criticality Documentation Date Start Date Code Code System Note Provider Name and Address Organization Details Recorded Time 44500 amoxicill in medicatio n Not available Not available Not available 09/26/20162020 723 RxNorm Delmis foote [facility] 10:49:15 62458 latex environme nt,medica tion other Not available Not available 11/19/20182020 03752 91 RxNorm Delmis foote [facility] 10:49:15 35733 ciproflox acin medicatio n hives Not available Not available 09/10/20212020 2551 RxNorm Delmisbrynn foote [facility] 10:49:15 Medications Name Sig Start Date Stop Date Status Note LastModified by Organization Details LastModified Time naproxen cre 10% 1 applicati on daily, as needed active Not Available Not Available No t Available losartan 50 mg tablet TAKE 1 TABLET BY MOUTH 1 TIME EACH DAY. active Not Available Not Available No t Available doxycycline hyclate 100 mg capsule 11/04 completed Not Available Not Available Not Available Saline Mist 0.65 % nasal spray aerosol Take 1 spray every day by nasal route in the morning for 30 days. 2023 active Not Available Not Available Not Avai lable tizanidine 2 mg tablet 11/19 completed Not Available Not Available Not Available clindamycin HCl 300 mg capsule TAKE 1 CAPSULE BY MOUTH EVERY 8 HOURS FOR 10 DAYS 09/10 completed Not Available Not Available Not Available fluconazole 150 mg tablet TAKE 1 TABLET BY MOUTH ONCE FOR 1 DAY 09/10 completed Not Available Not Available Not Available benzonatate 200 mg capsule TAKE 1 CAPSULE BY MOUTH THREE TIMES A DAY FOR 10 DAYS 08/25 completed Not Available Not Available Not Available fluconazole 200 mg tablet TAKE 1 TABLET BY MOUTH NOW, REPEAT IN 48 HOURS 03/22 completed Not Available Not Available Not Available phenazopyri dine 200 mg tablet TAKE 1 TABLET (200 [...] Not Available Not Available omeprazole 40 mg capsule,del ayed release TAKE 1 CAPSULE BY MOUTH EVERY DAY active Not Available Not Available No t Available aspirin 81 mg tablet,mac yed release Take 1 {tbl} by oral route. 09/10 completed Not Available Not Available Not Available levothyroxi ne 75 mcg tablet TAKE 1 TABLET BY MOUTH EVERY DAY active Not Available Not Available No t Available oxycodone-a cetaminophe n 5 mg-325 mg tablet TAKE 1 TABLET BY MOUTH EVERY 4 TO 6 HOURS NEEDED FOR SEVERE PAIN MAX DAILY AMOUNT:6 TABLETS 10/05 completed Not Available Not Available Not Available magnesium oxide 400 mg (241.3 mg magnesium) tablet Take 1 tablet every day by oral route. 09/26 completed Not Available Not Available Not Available methocarbam ol 750 mg tablet TAKE 1 TAB TWICE A DAY NEEDED MUSCLE SPASM 09/10 completed Not Available Not Available Not Available pravastatin 10 mg tablet Take 1 tablet every day by oral route at bedtime for 90 days. active Not Available Not Available No t Available tamsulosin 0.4 mg capsule TAKE 1 CAPSULE BY MOUTH EVERY DAY 05/24 completed Not Available Not Available Not Available amlodipine 5 mg-benazepr il 10 mg capsule Take 1 capsule every day by oral route for 90 days. 09/04 completed Not Available Not Available Not Available amlodipine 5 mg-benazepr il 20 mg capsule TAKE 1 CAPSULE BY MOUTH EVERY DAY 10/02 completed Not Available Not Available Not Available potassium citrate ER 10 mEq (1,080 mg) tablet,exte nded release PLEASE SEE ATTACHED FOR DETAILED DIRECTION S active Not Available Not Available No t Available levothyroxi ne 50 mcg tablet Take 1 tablet every day by oral route for 90 days. 07/26 completed Not Available Not Available Not Available zinc 60 mg tablet Take 1 tablet every day by oral route. 09/10 completed Not Available Not Available Not Available lisinopril 10 mg tablet TAKE 1 TABLET BY MOUTH EVERY DAY 08/25 completed Not Available Not Available Not Available triamcinolo ne acetonide 0.025 % topical ointment APPLY THIN LAYER TO LIPS UP TO THREE TIMES DAILY NEEDED active Not Available Not Available No t Available docusate sodium 100 mg capsule TAKE 1 CAPSULE BY MOUTH TWICE A DAY 08/25 completed Not Available Not Available Not Available diltiazem CD 120 mg capsule,ext ended release 24 hr TAKE 1 CAPSULE BY MOUTH EVERY DAY active Not Available Not Available No t Available desonide 0.05 % lotion Apply 1 [...] completed Not Available Not Available Not Available furosemide 20 mg tablet TAKE 1 TABLET BY MOUTH EVERY DAY FOR 7 DAYS active Not Available Not Available No t Available clobetasol 0.05 % topical ointment Apply 1 applicati on every day by topical route as needed for 21 days. 10/13 completed Not Available Not Available Not Available albuterol sulfate HFA 90 mcg/actuati on aerosol inhaler INHALE 2 PUFFS INTO THE LUNGS EVERY 4 HOURS NEEDED FOR 30 DAYS active Not Available Not Available No t Available fluticasone propionate 50 mcg/actuati on nasal spray,suspe nsion SPRAY 1 SPRAY BY INTRANASA L ROUTE EVERY DAY 08/25 completed Not Available Not Available Not Available clotrimazol e 1 % topical cream APPLY TO AFFECTED AREA TWICE A DAY FOR 14 DAYS 10/04 completed Not Available Not Available Not Available betamethaso ne dipropionat e 0.05 % lotion APPLY TWICE A DAY [...] Available Not Available Not Available tobramycin 0.3 %-dexametha sone 0.1 % eye drops,suspe nsion PLACE 4 DROPS INTO AFFECTED EAR TWICE A DAY X 7 DAYS 08/10 completed Not Available Not Available Not Available oxycodone 5 mg tablet TAKE 1 TABLET BY MOUTH FOUR TIMES A DAY EVERY 6 HOURS NEEDED FOR SEVERE PAIN MAX 20 MG/DAY 05/24 completed Not Available Not Available Not Available neomycin 3.5 mg/g-polymy raj B 10,000 unit/g-dexa meth 0.1 % eye oint APPLY TO AFFECTED LID AT BEDTIME 05/24 completed Not Available Not Available Not Available coenzyme Q10 100 mg capsule Take 1 capsule every day by oral route. 09/26 completed Not Available Not Available Not Available nitrofurant oin monohydrate /macrocryst als 100 mg capsule 10/04 completed Not Available Not Available Not Available metronidazo le 1 % topical gel Apply 1 applicati [...] Available Not Available No t Available peg 3350-electr olytes 236 gram-22.74 gram-6.74 gram-5.86 gram solution active [...] potassium citrate ER 15 mEq (1,620 mg) tablet,exte nded release TAKE 2 TABLETS BY MOUTH TWICE A DAY 10/05 completed Not Available Not Available Not Available Prevnar 13 (PF) 0.5 mL intramuscul ar syringe PHARMACY ADMINISTE RED 08/07 completed Not Available Not Available Not Available Probiotic 1 po daily 09/26 completed Not Available Not Available Not Available Vitamin D3 50 mcg (2,000 unit) capsule Take 1 capsule every day by oral route. active Not Available Not Available No t Available Eliquis 5 mg tablet TAKE 1 TABLET BY MOUTH TWICE A DAY active Not Available Not Available No t Available Eliquis 2.5 mg tablet TAKE 1 [...] completed Not Available Not Available Not Available [facility] 1 po daily 09/26 completed Not Available Not Available Not Available Move Free Ultra Triple Action (boron) 40 mg-5 mg-3.3 mg tablet Take 1 tablet every day by oral route. 10/04 completed Not Available Not Available Not Available Flonase Sensimist 27.5 mcg/actuati on nasal spray,suspe nsion Take 1 spray every day by nasal route at bedtime for 30 days. 2023 active Not Available Not Available Not Avai lable Fluzone Quad (PF) 60 mcg(15 mcgx4)/0.5 mL intramuscul ar syringe 11/19 completed Not Available Not Available Not Available Plenvu 140 gram-9 gram-5.2 gram powder packs 08/07 completed Not Available Not Available Not Available Wixela Inhub 250 mcg-50 mcg/dose powder for inhalation INHALE 1 PUFF BY MOUTH EVERY 12 HOURS FOR 30 DAYS active Not Available Not Available No t Available Fluzone High-Dose Quad (PF) 240 mcg/0.7 [...] Updated DateTime 4 166.37 cm 42.6 kg/m2 747904. 02 g 70 /min 98 % 98 % 98.1 [degF] 131 mm[Hg] 76 mm[Hg] [facility] 4 13:32:05 Date Recorded Body height Body mass index (BMI) Body weight Heart rate Oxygen saturation Oxygen saturation in Arterial blood by Pulse oximetry Body temperature Systolic blood pressure Diastolic blood pressure Provider Name and Address Organization Details Last Updated DateTime 4 166.37 cm 43.2 kg/m2 589906. 89 g 57 /min 98 % 98 % 98.8 [degF] 145 mm[Hg] 73 mm[Hg] Amita Quintana LPN [facility] 4 09:51:51 Date Recorded Systolic blood pressure Diastolic blood pressure Provider Name and Address Organization Details Last Updated DateTime 08/25/2024 134 mm[Hg] 76 mm[Hg] MARIA DOLORES CAREY [address], [place], [address], [facility] 08/25/2024 10:18:25 Date Recorded Body height Body mass index (BMI) Body weight Heart rate Oxygen saturation Oxygen saturation in Arterial blood by Pulse oximetry Body temperature Systolic blood pressure Diastolic blood pressure Systolic blood pressure Diastolic blood pressure Provider Name and Address Organization Details Last Updated DateTime 4 166.37 cm 43.1 kg/m2 793776. 79 g 67 /min 97 % 97 % 98.3 [degF] 146 mm[Hg] 77 mm[Hg] 136 mm[Hg] 68 mm[Hg] Bronwyn robin MA [facility] 10:45:55 Date Recorded Body height Body mass index (BMI) Body weight Oxygen saturation Oxygen saturation in Arterial blood by Pulse oximetry Heart rate Body temperature Systolic blood pressure Diastolic blood pressure Provider Name and Address Organization Details Last Updated DateTime 166.37 cm 41.9 kg/m2 623350. 85 g 99 % 99 % 69 /min 98.4 [degF] 123 mm[Hg] 79 mm[Hg] Nicole Bess MA [facility] 4 10:27:10 Social History Question Answer Notes LastModified by Organizat ion Details LastModified Time Tobacco Smoking Status Never Smoker PATSY Stout, [facility] 03/20/2016 14:01:45 Do You Have An [...] Recorded Time Tdap 2 completed Delmis foote [facility] 08/07/2022 13:59:27 zoster live 4 completed Delmis foote [facility] 08/07/2022 13:59:27 Influenza, split virus, trivalent, preservative 6 completed Delmis foote [facility] 08/07/2022 13:59:27 Influenza, split virus, quadrivalent, PF 8 completed PATSY Mancilla [facility] 08/07/2023 09:52:25 zoster recombinant 9 completed PATSY Mancilla [facility] 08/07/2023 09:52:25 Influenza, split virus, quadrivalent, PF 9 completed PATSY Mancilla, [facility] 08/07/2023 09:52:25 Influenza, high-dose, trivalent, PF 0 completed Delmis foote, [facility] 08/07/2022 13:59:27 Pneumococcal conjugate PCV 13 0 [facility] 13:59:27 COVID-19, mRNA, LNP-S, PF, 30 mcg/0.3 mL dose 1 completed PATSY Mancilla [facility] 08/07/2023 09:52:25 COVID-19, mRNA, LNP-S, PF, 30 mcg/0.3 mL dose 1 completed PATSY Mancilla [facility] 08/07/2023 09:52:25 Influenza, high-dose, quadrivalent, PF 1 completed PATSY Mancilla [facility] 08/07/2023 09:52:25 pneumococcal polysaccharide PPV23 1 completed Delmis foote [facility] 08/07/2022 13:59:27 COVID-19, mRNA, LNP-S, PF, 30 mcg/0.3 mL dose 1 [facility]23 09:52:25 Influenza, split virus, quadrivalent, PF 7 completed PATSY Mancilla, [facility] 08/07/2023 09:52:25 zoster recombinant 2 [facility]07/[facility]23 09:52:25 COVID-19, mRNA, LNP-S, PF, 30 mcg/0.3 mL dose, pearl-sucrose 2 completed PATSY Mancilla, [facility] 08/07/2023 09:52:25 Influenza, high-dose, quadrivalent, PF 2 [facility]23 10:07:35 Pneumococcal conjugate PCV20, polysaccharide ZHA233 conjugate, adjuvant, PF 2 [facility]07/[facility]23 09:52:25 COVID-19, mRNA, LNP-S, bivalent, PF, 30 mcg/0.3 mL dose 2 [facility]/07/2023 09:52:25 Influenza, split virus, quadrivalent, preservative 6 [facility]/07/[facility]23 09:52:25 Influenza, split virus, quadrivalent, PF 4 [facility]/07/[facility]23 09:52:25 RSV, recombinant, protein subunit RSVpreF, adjuvant reconstituted, 0.5 mL, PF 3 [facility]07/[facility]23 10:04:15 COVID-19, mRNA, LNP-S, PF, 30 mcg/0.3 mL dose 3 completed PATSY Mancilla [facility] 08/07/2023 10:07:57 Influenza, adjuvanted, quadrivalent, PF 3 completed PATSY Coon, [facility] 09/10/2023 10:54:09 Influenza, high-dose, quadrivalent, PF 2 completed PATSY Coon, [facility] 09/10/2023 10:54:09 COVID-19, mRNA, LNP-S, PF, pearl-sucrose, 30 mcg/0.3 mL 3 completed Dorene Sorensen MA null, [facility] 09/10/2023 10:54:09 Td(adult) unspecified formulation 3 completed Nii Yates MD [address] [address], [place], [address], [facility] 05/24/2024 10:55:35 COVID-19, mRNA, LNP-S, PF, 50 mcg/0.5 mL 4 completed Delmis Zelaya null, [facility] 08/13/2024 11:29:35 Influenza, high-dose, trivalent, PF 4 completed Bronwyn Cardenas MA null, [facility] 08/03/2024 14:25:07 Past Encounters Encounter ID Performer Location Encounter Start Date Encounter Closed Date Diagnosis/Indication Diagnosis SNOMED-CT Code Diagnosis ICD10 Code Diagnosis Note [id number] Jason Guevara MD Main Office [address] [address] 03/20/2016 13:27:10 03/20/2016 15:02:18 Hypothyroidism 89899157 E03.9 Labile hyp ertension due to being in a clinical environment 208890985 I15.8 Hyperlipidemia 81047105 E78.0 Fatigue 08484243 R53.83 Vitamin D deficiency 347 37142 E55.9 Gastroesop hageal reflux disease 709849889 K21.9 Body mass index 40+ - severely obese 588714980 Z68.41 [id number] Jason Guevara MD Main Office [address] [address] 09/26/2016 15:10:11 09/26/2016 16:42:07 Adult health examination 797316163 Z00.00 Varicose v eins of lower extremity 62607013 I83.893 Body mass index 40+ - severely obese 042734849 Z68.41 Hypothyroidism 11852467 E03.9 Gastroesop hageal reflux disease 915840768 K21.9 [id number] Leif villatoro Main Office [address] [address] 07/12/2017 09:37:53 07/12/2017 10:10:36 Needs influenza immunization 830530692 Z23 [id number] Jason Guevara MD Main Office [address] [facility] [address] [place] [address] 10/13/2017 13:26:17 10/13/2017 14:47:58 Adult health examination 538189189 Z00.00 Hypothyroidism 33604339 E03.9 Essential hypertension 37980728 I10 Stable off of medication s Hyperlipidemia 91493044 E78.2 Gastroesop hageal reflux disease 750792624 K21.9 Body mass index 40+ - severely obese 575812762 E66.01 Z68.41 [id number] Nica Gray Main Office [address] [address] [place] [address] 11/19/2018 13:36:04 11/19/2018 14:56:16 Pre-surgery evaluation 978485187 Z01.818 Pt had labs recently and will get results. Advised to hold aspirin and relafen 1 week prior. Noble score 0.1% with most risk from morbid obesity. BP normal at this time, pt able to do at least 4 METS Body mass index 40+ - severely obese 649924129 E66.01 Z68.41 Continue weight loss, on WW plan now. Discussed adding different exercises including resistance training. Discuss core exercises with surgeon Umbilical hernia 4923415 07 K42.9 [id number] Jason Guevara MD Main Office [address] [facility] [address] [place] [address] 01/18/2019 12:54:54 01/18/2019 14:19:05 Adult health examination 325978100 Z00.00 Screening for malignant neoplasm of breast 811931071 Z12.39 Essential hypertension 46143069 I10 Stable off of medication s Gastroesop hageal reflux disease 562285961 K21.9 Hypothyroidism 51670629 E03.9 Hyperlipidemia 65698404 E78.2 Body mass index 40+ - severely obese 584282730 E66.01 Z68.41 Hepatitis C screening 41 3216696 Z11.59 Plantar fasciitis 242611 003 M72.2 Vitamin D deficiency 347 09533 E55.9 [id number] Shayy rosales Main Office [address] [facility] [address] [place] [address] 01/27/2019 13:51:24 01/27/2019 14:47:01 Allergic reaction 155234929 T78.40XA area of first shingrix vaccine with redness, warm and itching.. no streaking avoid shingrix [id number] Jorden Sandoval PA-C Main Office [address] [address] [place] [address] 07/26/2019 10:21:01 07/26/2019 11:28:39 Thrombophlebitis of superficial veins of lower extremity 10014573 I80.01 rec cont comp socks, use warm washcloth for a few minutes few times/day, and increase nabumetone to 1000mg bid x few days, then back to usual dose of 500mg bid offered reassuranc e - no evidence of dvt Peripheral venous insufficiency 35709862 I87.2 cont comp socks, f/u c vein specialist in 09/04 as dir [id number] Jason Guevara MD Main Office [address] [address] [place] [address] 08/07/2020 13:01:37 08/07/2020 14:26:46 Adult health examination 663448994 Z00.00 Essential hypertension 15438373 I10 Stable off of medication s Hypothyroidism 46564045 E03.9 Screening for malignant neoplasm of breast 088901472 Z12.39 Menopause present 776193 006 Z78.0 Gastroesop hageal reflux disease 273145862 K21.9 Lateral epicondylitis 20 6677783 M77.12 Body mass index 40+ - severely obese 326760387 E66.01 Z68.41 [id number] Nii Yates MD Main Office [address] [address] [place] [address] 08/10/2021 09:47:22 08/10/2021 10:49:11 Adult health examination 994879662 Z00.00 Patient was counseled on healthy diet, [...] . Advance di rective discussed with patient 784698150 Z71.89 MOLST and HCP discussed with patient, patient to discuss with family and bring back at next visit. Fatigue 35258160 R53.83 Hyperlipidemia 03867507 E78.5 Screening for malignant neoplasm of breast 735536564 Z12.39 Insomnia 474530579 G47.0 0 Body mass index 40+ - severely obese 372520597 Z68.41 - Diet and exercise discussed- Patient made aware of risks of obesity- Avoid starchy and fatty food- Encouraged use of green vegetables and fruits Morbid obesity 465432249 E66.01 Essential hypertension 25897257 I10 [id number] Nica Gray Main Office [address] [place] [address] 10/02/2021 11:19:28 10/02/2021 12:12:21 Chronic kidney disease stage 3B 250187549 N18.[address] Shahid Hypertensi ve renal disease 44779294 I12.9 Danita showed me a full log of her blood pressure readings at home and it has consistent ly been below 130 over 90s. I am reluctant to go ahead and change her blood pressure medication at this time as her elevated blood pressure could be due to being in a medical office setting.Nathaniel jens will continue to monitor blood pressure [...] nephrology Dr. Shahid see essential HTN above. [id number] Nica Gray Main Office [address] [facility] [address] [facility] [place] [address] 08/28/2022 12:57:11 08/28/2022 13:52:16 Adult health examination 220867270 Z00.00 Patient was counseled on healthy diet, exercise and nutrition due to Body mass index is 42.9 kg/m? ? ?. Last Colonoscop y:Date: 07/04/20Res ult: tubular adenomaPla n: repeat in 5 yrs Last Mammogram: Date: 10/31/21Re sult: Birad -1Plan: ordered Last Pap smearDate: 08/21/17 ult: Neg for RICKEY, TZ present, HPVPlan: [...] . Advance di rective discussed with patient 263067987 Z71.89 MOLST and HCP discussed with patient, patient to discuss with family and bring back at next visit. Fatigue 15393414 R53.83 Hyperlipidemia 76514055 E78.5 Screening for malignant neoplasm of breast 729976120 Z12.39 Body mass index 40+ - severely obese 360545076 Z68.41 - Diet and exercise discussed- Patient made aware of risks of obesity- Avoid starchy and fatty food- Encouraged use of green vegetables and fruits Morbid obesity 702778168 E66.01 Chronic ki dney disease stage 3A 239400671 N18.[address] Shahid Neck pain 81595072 M54.2 Suspected MSK strain will get xr given age, if wnl advised ok to do PT.No red flag on PE. Vitamin D deficiency 347 13590 E55.9 Hypertensi ve renal disease 94942055 I12.9 BP stable with current regimen. [id number] BROOKS AGUILAR MD Main Office [address] [place] [address] 08/07/2023 10:02:13 08/07/2023 13:04:34 [id number] Cheryl Oropeza [facility] [address] [place] [address] 09/10/2023 09:49:15 09/10/2023 10:53:53 COVID-19 715019757 U07.1 Hydration, rest, if feeling better quarantine x 5 days then mask for 5 days. If not better after 5 days quarantine for full 10 days. Tylenol as needed, OTC cough med as needed. Call/ return for worsening sx or concerns. Chronic ki dney disease stage 3A 866182550 N18.31 GFR 49, Creatinine 1.2 Hypertensi ve renal disease 91189513 I12.9 Laryngitis 69241483 J04. 0 [id number] Nii Yates MD Main Office [address] [place] [address] 10/04/2023 08:32:10 10/04/2023 09:30:14 Adult health examination 295862244 Z00.00 Patient was counseled on healthy diet, exercise and nutrition due to Body mass index is 41.2 kg/m? ? ?. Last Colonoscop y:Date: 07/04/20Res ult: tubular adenomaPla n: repeat in 5 yrs Last Mammogram: Date: 11/01/22Re sult: Birad -1Plan: done by lapidary apprentice Last Pap smearDate: 12/07/21Res ult: Neg for [...] Distracted driving discussed. Medication reconciled . Fatigue 72149738 R53.83 Hyperlipidemia 81630547 E78.5 Morbid obesity 342893188 E66.01 Body mass index 40+ - severely obese 958049264 Z68.41 - Diet and exercise discussed- Patient made aware of risks of obesity- Avoid starchy and fatty food- Encouraged use of green vegetables and fruits Advance di rective discussed with patient 593999832 Z71.89 MOLST and HCP discussed with patient, patient to discuss with family and bring back at next visit. Hypertensi ve renal disease 02771807 I12.9 BP stable with current regimen per renal and her home reading, little high in office today. She is otherwise asymptomat ic. BP could elevated due to discomfort from renal stone advised to monitor bp, she is otherwise following this up with renal. Chronic ki dney disease stage 3A 284571526 N18.[address] Shahid Vitamin D deficiency 347 05501 E55.9 Impaired f asting glycemia 311496753 R73.01 Administra tion of viral vaccine 26318080 Z23 [id number] Nica Gray Main Office [address] [facility] [address] [facility] [place] [address] 03/22/2024 09:34:14 03/22/2024 10:28:00 Pre-surgery evaluation 901755186 Z01.818 No medical contraindi cations to proposed procedure. Real Perioperat anson Cardiac Risk was calculated and the risk for perioperat anson PA is 0.6%. May proceed to surgery as planned.-c ompleted lab work this morning; bmp, cbc, and urinalysis -EGG revealed premature supraventr icular complexes; pt is asymptomat ic. New when compared to ecg from 2019. Scheduled to f/u in 2 months for repeat ECG. Chronic ki dney disease stage 3A 556880087 N18.[address] Shahid Hypertensi ve renal disease 44058149 I12.9 currently on amlodipine 5mg QD and lisinopril 10mg QD-in office BP of 160/81 and 136/78 Kidney stone 40085474 N2 0.0 [id number] Nii Yates MD Main Office [address] [facility] [address] [place] [address] 05/24/2024 10:08:25 05/24/2024 11:06:06 ECG: sinus arrhythmia 208748754 R94.31 repeat ecg reassuring . [id number] Joseph Aguilar MD Main Office [address] [facility] [address] [place] [address] 07/13/2024 10:38:10 07/13/2024 11:12:04 Cough 60752930 R05.9 Possible secondary to PND. Maybe be viral as well. Advised to use OTC meds as needed. Posterior rhinorrhea 758 74662 R09.82 [id number] Nii Yates MD Main Office [address] [facility] [address] [place] [address] 08/03/2024 13:18:17 08/03/2024 14:09:53 Influenza vaccine needed 0662679723 106 Z23 65 YEARS AND OLDER Cough 86552826 R05.9 -Will proceed with PFT and methacholi ne.-Will get allergy testing via lab.-Will get CXR. Dyspnea 832253886 R06.00 No calf pain, no recent travel. Allergic rhinitis 985388 04 J30.9 [id number] MARIA DOLORES CAREY Main Office [address] [facility] [address] [place] [address] 07/30/2024 10:26:26 07/30/2024 11:03:56 Dyspnea on exertion 78513761 R06.09 -recently stopped using her flonase and [...] evaluate with PFTs w/ methacholi ne challenge [id number] MARIA DOLORES CAREY Main Office [address] [place] [address] 08/25/2024 09:37:24 08/25/2024 10:25:17 Pre-surgery evaluation 966099233 Z01.818 No medical contraindi cations to proposed procedure. Noble Perioperat anson Cardiac Risk was calculated and the risk for perioperat anson PA is <0.5%. May proceed to surgery as planned.-r ecently completed CBC w/ diff, BMP in 07/2024-EGG ; slightly bradycardi c, 57 bpm, NSR, no ST changes Chronic ki dney disease stage 3A 057151576 N18.[address] Shahid Hypertensi ve renal disease 09553174 I12.9 currently on amlodipine 5mg QD and losartan 50mg QD-in office BP of 145/73 Hypothyroidism 18902220 E03.9 -on levothyrox ine 75mcg Arthritis of first carpometacarpal joint of right hand 7722181269 070492 M13.841 pre-operat anson medical clearance for right thumb carpometac arpal arthroplas ty procedure with Dr. Gurjit Steele (NPI#[id number]) on 09/16/2024 . Under MAC. [id number] Nica Gray Main Office [address] [facility] [place] [address] 10/05/2024 09:50:28 10/05/2024 10:51:19 Adult health examination 825329115 Z00.00 Patient was counseled on healthy diet, exercise and nutrition due to Body mass index is 43.2 kg/m? ? ?. Last Colonoscop y:Date: 07/04/20Res ult: tubular adenomaPla n: repeat in 5 yrs Last Mammogram: Date: 11/03/2023 Result: Birad -1Plan: done by lapidary apprentice Last Pap smearDate: 12/07/21Res ult: Neg for [...] Distracted driving discussed. Medication reconciled . Fatigue 44154062 R53.83 Hyperlipidemia 13973327 E78.5 Morbid obesity 483010492 E66.01 Body mass index 40+ - severely obese 095513965 Z68.41 - Diet and exercise discussed- Patient made aware of risks of obesity- Avoid starchy and fatty food- Encouraged use of green vegetables and fruits Advance di rective discussed with patient 337231523 Z71.89 MOLST and HCP discussed with patient, patient to discuss with family and bring back at next visit. Hypertensi ve renal disease 51611799 I12.9 BP little elevated, followed by renal med adjustment being made. Chronic ki dney disease stage 3A 391020316 N18.[address] Shahid Vitamin D deficiency 347 45270 E55.9 Impaired f asting glycemia 209330834 R73.01 Screening for malignant neoplasm of breast 020596379 Z12.39 [id number] Nii Yates MD Main Office [address] [facility] [address] [facility] [place] [address] 11/04/2024 08:30:11 11/05/2024 16:23:02 [id number] Janel Sandoval PA-C Main Office [address] [facility] [address] [place] [address] 11/09/2024 10:18:25 11/09/2024 11:07:20 Atrial flutter 2626540 I48.92 new acute onset of atrial flutter [...] stable in September. Hypertensi ve renal disease 32221471 I12.9 stable hypertensi on on current medication s. Chronic ki dney disease stage 3A 680659030 N18.31 stable, f/u with Dr. Shahid in November. Hypothyroidism 98096011 E03.9 stable on current medication . Moderate p ersistent asthma 057662192 J45.40 stable, pt. will continue Wixela and [...] Member ID Guarantor Name 08/03/2024 1 [place]: [employer] Danita A Randle [id number] Danita A Randle 08/03/2024 2 [facility] [id number] Danita A Randle [id number] Danita A Randle 08/25/2024 1 [place] [employer] Danita A Randle [id number] Danita A Randle 08/25/2024 2 [facility] [id number] Danita A Randle [id number] Danita A Randle 10/05/2024 1 [place] [employer] Danita A Randle [id number] Danita A Randle 10/05/2024 2 [facility] [id number] Danita A Randle [id number] Danita A Randle 11/04/2024 1 [place] [employer] Danita A Randle [id number] Danita A Randle 11/04/2024 2 [facility] [id number] Danita A Randle [id number] Danita A Randle 11/09/2024 1 [place] [employer] Danita A Randle [id number] Danita A Randle 11/09/2024 2 [facility] [id number] Danita Randle [id number] Danita Randle Notes Date Note Type Note Provider Name and Address Organization Details Recorded Time 08/03/2024 text/html Follow up for co ugh and med review, sx stable has PFT scheduled tomorrow. Doing ok otherwise. Nii Yates MD [address] [facility] [facility] [address], [place], [address], [facility] 08/03/2024 13:59:13 08/25/2024 text/html Danita is a 69yr old F with PMHx of CKD stage 3A, hypothyroidism, presents for pre-operative medical clearance for right thumb carpometacarpal arthroplasty procedure with Dr. Gurjit Steele (NPI#[id number]) on 09/16/2024. Under MAC. Denies any acute [...] chills, and nausea/vomiting. MARIA DOLORES CAREY [address] [facility] [address], [place], [address], [facility] 08/25/2024 10:40:33 10/05/2024 text/html Medicare Annual Wellness [...] arthritis.Blood pressure followed by renal. Nica foote [facility] 10/18/2024 10:51:09 11/04/2024 text/html Hospitalization Contact RecordReported bypatient.Follow UpHospital: [facility]; admit date: (Please enter in format 'MM/DD/YYYY') [...] disease, and Vitamin D deficiency presented to [place] ED 10/28 from pre-op area where she [...] Nii Yates MD [address], [place], [address], [facility] 11/05/2024 16:23:01 11/09/2024 text/html 69 year old malcom field for transition of care visit. Admitted 10/28 through 11/03/24 to [facility] for new onset atrial flutter and bronchospasm . Janel Sandoval PA-C [address], [place], [address], [facility] 11/09/2024 11:02:04 11/09/2024 text/html Hospitalization Contact RecordReported bypatient.Follow UpHospital: [facility]; admit date: (Please enter in format 'MM/DD/YYYY') [...] disease, and Vitamin D deficiency presented to [place] ED 10/28 from pre-op area where she [...] # for future use. Janel Sandoval PA-C [address] [facility] [address] [facility] [address], [place], [address], [facility] 11/09/2024 11:02:04 OBGyn Episode No OBEpisode recorded.
--- OUTSIDE RECORDS SUMMARY | 2024-12-20 14:07 | XMS_ITS | Encounter Summary ---
Author Organization [facility] Address [address] [place] [address] Phone Care Team Providers Care Stationary Engineer Name Role Phone Sugey Rice MD Primary Care Provider [phone] Encounter Details Date Type Department Care Team (Late st Contact Info) Description 07/29/2023 Documentation Only [facility] [place], [address] [facility] [place] [phone] Lissett Zacarias[place]TEREY, [place] [address] [place] [address] Social History Tobacco Use Types [...] Visit [facility] [place] [facility] [place] [address] [place] [phone] Leonardo Stovall [address] [place] [phone] documented as of this encounter Visit Diagnoses Not on filedocumented in this encounter Care Teams Stationary Engineer Relationship Specialty Start Date End Date Sugey Rice MD [address] [phone] PCP - General Family Medicine 09/04/21 documented as of this encounter
--- OUTSIDE RECORDS SUMMARY | 2024-12-20 14:07 | XMS_ITS | Encounter Summary ---
Author Organization [facility] Address [address] [place] [address] Care Team Providers Care Internet Security Specialist Name Role Phone Sugey Rice MD Primary Care Provider [phone] Encounter Details Date Type Department Care Team (Late Contact Info) Description 09/23/2024 Scanned Document [facility] [address] [phone] Gurjit Steele MD [address] [place] [address] Social History Tobacco Use Types Packs/Day Years [...] 10:00 AM EST [facility] Visit [facility] [address] [place] [address] Gurjit Steele MD 31 [facility] 100 [place] [address] 06/29/2025 10:30 AM EDT Office Visit [facility] [place] [address] [place] [address] Josef Loya MD 80 [place] [address] documented as of this encounter Visit Diagnoses Not on filedocumented in this encounter Care Teams Internet Security Specialist Relationship Specialty Start Date End Date Sugey Rice MD [address] [place] [address] 207 [place] [address] PCP - General Family Medicine 05/05/23 documented as of this encounter
--- OUTSIDE RECORDS SUMMARY | 2024-12-20 14:07 | XMS_ITS | Clinical Summary ---
Author Organization [facility] Address [address] [place] [address] Care Team Providers Care Software Installer Name Role Phone Sugey Rice MD Primary Care Provider Allergies Active Allergy Reactions Criticality Noted Date [...] Description 11/18/2024 11:00 AM [place] [address] Mariela Moe OT 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); Stiffness of left hand joint 10/27/2024 11:30 AM EST Treatment [facility] [place] [phone] Mariela Moe OT 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); Stiffness of left hand joint 10/27/2024 10:45 AM EST [place] [address] Gurjit Steele MD 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, unspecified osteoarthritis type (Primary Dx) 10/06/2024 11:30 AM EST Evaluation [facility] [place] [phone] BontempoGurjit MD Roth, Ann-Marie, OT 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); Stiffness of left hand joint 10/06/2024 10:35 AM EST Ancillary Procedure [facility] [address] [address] Jessica Louise PA 10/06/2024 10:30 AM EST [facility] [address] [address] Jessica Louise PA 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, unspecified osteoarthritis type (Primary Dx) 09/29/2024 10:30 AM EST Clinical Support [facility] [address] [address] Jessica Louise PA CMC arthritis (Primary Dx) 09/28/2024 2:30 PM EST Clinical Support [facility] [address] [address] Gurjit Steele MD Pain (Primary Dx) 09/23/2024 Scanned Document [facility] [address] [phone] Gurjit Steele MD 09/22/2024 Orders Only [facility] [address] [address] Gurjit Steele MD CMC arthritis (Primary Dx) from Last 3 Months Social History Tobacco [...] AM EST Office Visit [facility] [address] [address] Gurjit Steele MD [address] [address] 06/29/2025 10:30 AM EDT Office Visit [facility] [place] [address] [place] [address] Josef Loya MD 80 [place] [address] Health Maintenance Due Date Last Done Comments [...] this topic Medical Devices Explanted Type Area Medication Nurse Device Identifier Shelf Expiration Date Model / Serial / Lot [id number] Stent Ureteral 6fr 26cm Taper Tip Bldr Benjie Lp Contour Hdr+ - [id number] Implanted:Qty : 1 on 03/29/2024 by Josef Loya MD at [facility] Explanted:Qty : 1 on 04/07/2024 by Josef Loya MD Stent Right: Ureter [employer] [id number] 11/30/2026 [id number] / / [id number] Procedures Procedure Name Priority Date/Time Associated Diagnosis Comments XR FINGER (1ST) 2+ VIEWS-RIGHT Routine 10/06/2024 10:34 AM EST 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, unspecified osteoarthritis type from Last 3 Months Results * XR Finger (1st) 2+ views-Right (10/06/2024 10:34 AM EST) Narrative [facility] - 10/06/2024 10:34 AM EST This exam was performed in office at [facility] and images reviewed by orthopedic provider. ??Any findings are documented within ambulatory encounter note on date of service. Jessica [facility] ORDERABLES OA from Last 3 Months Care Teams Software Installer Relationship Specialty Start Date End Date Sugey Rice MD 3640 [facility] 207 [place] [address] PCP - General Family Medicine 05/05/23
--- OUTSIDE RECORDS SUMMARY | 2024-12-20 14:07 | XMS_ITS | Clinical Summary ---
Author Organization [facility] Address [address] [place] [address] Care Team Providers Care Massage Operator Name Role Phone Pcp, No MD Primary [...] capsule Take by mouth. 2 Active cartilage-colla khp-xyx-qkijvp 40-5-3.3 mg tablet daily. Active lisinopriL (PRINIVIL) [...] patient's age to complete this topic Insurance [facility] MEDICARE PART A & B Care Teams Massage Operator Relationship Specialty Start Date End Date Gloria Zuñiga MD [address] [place] [address] PCP - General Internal Medicine 07/02/22
--- OUTSIDE RECORDS SUMMARY | 2024-12-20 14:07 | XMS_ITS | Encounter Summary ---
Author Organization [facility] Address [address] [place] [address] Phone Care Team Providers Care Mesh Worker Name Role Phone Sugey Rice MD Primary Care Provider [phone] Encounter Details Date Type Department Care Team (Late Contact Info) Description 08/04/2023 Documentation Only [facility] [place], [address] [facility] [address] [facility] [place] [phone] Leonardo Stovall DO [address] [address] [place] [address] Social History Tobacco Use [...] Visit [facility] [place] [facility] [place] [address] [place] [phone] Leonardo Stovall DO [address] [address] [place] [address] documented as of this encounter Visit Diagnoses Not on filedocumented in this encounter Care Teams Mesh Worker Relationship Specialty Start Date End Date Sugey Rice MD [address] [phone] PCP - General Family Medicine 09/04/21 documented as of this encounter
== END ==
LOC: HO.SL 12:45
PROVIDERS: PCP Family Medicine; Visit Provider Internal Medicine Cardiovascular Disease
DX: R07.9 Chest pain, unspecified (principal); I48.92 Unspecified atrial flutter; J98.4 Other disorders of lung; J45.41 Moderate persistent asthma with (acute) exacerbation; R06.81 Apnea, not elsewhere classified; G47.30 Sleep apnea, unspecified
CPT/HCPCS: 93242; 95806

== ENCOUNTER → 2024-12-20 12:59 | Outpatient (BNV) | payer MEDICARE, OTHER, SELFPAY | PROVIDERS: PCP Family Medicine; Visit Provider Internal Medicine Cardiovascular Disease | DX: I48.91 Unspecified atrial fibrillation (principal) | CPT/HCPCS: 93244 ==

== ENCOUNTER → 2024-12-20 13:02 | Outpatient (BNV) | CPT/HCPCS: 95806 ==

== ENCOUNTER 2025-01-10 11:18 | Outpatient (AMB) | payer MEDICARE, OTHER, SELFPAY ==
[2025-01-10 11:22] VITALS: BP 120/78; PULSE 62; BMI 42.7
--- NOTE | 2025-01-10 11:22 | MHC.OFFVIS ---
Vital Signs 01/10/25 11:22 Height 5 ft 6 in Weight 264 lb 8.875 oz BMI 42.7 BP 120/78 Blood Pressure Location Lt brachial Position Sitting Pulse 62 Intake Visit Reasons: follow-up with ekg Intake Note: follow-up with ekg after CTA, Cardiversion, and sleep study feeling good Cushion Mat Maker Required: No Allergies amoxicillin Allergy (Verified 11/25/24 10:20) hives ciprofloxacin Allergy (Verified 11/25/24 10:20) Hives latex Allergy (Verified 11/25/24 10:20) vaginal itching Medication List - Last Reconciled 01/10/25 by Darren Garrett MD apixaban (Eliquis) 5 mg PO BID cholecalciferol (vitamin D3) 50 mcg PO BID diltiazem HCl CD (Cardizem CD) 120 mg See Protocol PO DAILY levothyroxine 75 mcg PO DAILY@0600 losartan 50 mg PO DAILY omeprazole 40 mg PO DAILY@0630 potassium citrate ER 20 mEq PO TID pravastatin 10 mg PO BEDTIME HPI Comments Details: Danita comes for follow-up. Has done well since cardioversion. Remaining sinus rhythm. Heart rate as noticed by her goes in the 30s. Holter monitor shows frequent PACs. She was no new symptoms. No prolonged palpitation irregular heartbeat. No lightheadedness, syncope. No orthopnea, PND, leg edema. Takes all her medications. Blood pressures been well controlled. No bleeding issues or neurologic events. Stress test for suggestive of ischemia possibly LAD territory. She denies any exertional chest pain. He has been prescribed CPAP although he is waiting to acquire rate. [facility] Medical History Atrial flutter Pulmonary hypertension YOSHI (obstructive sleep apnea) Chronic restrictive lung disease Asthma Pulmonary nodules Social History Household Members: Spouse and Children Housing: House Do you presently have visiting nurse or other home services: No Patient Tobacco Use Status: Never used Tobacco service: No Review of Systems Const Denies chills, Denies fatigue, Denies fever(s), Denies frequent falls, Denies weakness, Denies weight gain and Denies weight loss ENT Denies dizziness Card Denies chest pain, Denies leg edema, Denies lightheadedness, Denies palpitations, Denies dyspnea, Denies dyspnea on exertion, Denies orthopnea and Denies other (loss of consciousness) Resp Denies cough, Denies dyspnea and Denies dyspnea on exertion GI Denies hematochezia and Denies change in stool character Musc Denies abnormal gait, Denies muscle weakness, Denies numbness, Denies radiating pain into limb and Denies tingling Neuro Denies abnormal gait, Denies dizziness, Denies frequent falls, Denies numbness, Denies tingling and Denies weakness Endo Denies fatigue and Denies palpitations Physical Exam Vital Signs: Last Vital Signs Pulse 62 01/10/25 11:22 BP 120/78 01/10/25 11:22 BMI result Body Mass Index 42.7 Const General: cooperative, comfortable, no acute distress, alert and awake Nutritional Appearance: obese Orientation/consciousness: patient oriented x3 Limitations: no limitations Neck Neck: Yes trachea midline, Yes supple and Yes no JVD Resp Effort & Inspection: normal respiratory effort Auscultation: clear to auscultation bilaterally Cardio Jugular venous distension: no JVD Rate: regular rate Rhythm: regular rhythm Heart sounds: S1 normal heart sound present, S2 normal heart sound present, no click, no gallops, no murmurs and no rubs GI Auscultation: normal bowel sounds Skin General skin exam: no rashes or lesions noted Neuro General: patient oriented x3 and no focal motor deficits Extrem General: Yes no clubbing, cyanosis or edema Office Procedures EKG Details: EKG shows normal sinus rhythm with sinus arrhythmia at 62 beats per minute 26647-[id number], Complete Assessment & Plan Assessment & Plan (1) Atrial flutter: Code(s): I48.92 - Unspecified atrial flutter Category: Medical Qualifiers: Atrial flutter type: unspecified Qualified Code(s): I48.92 - Unspecified atrial flutter Plan: Atrial flutter which is paroxysmal in nature status post cardioversion. Doing well. Maintaining rhythm. Will continue pursue rhythm control approach. Continue Cardizem therapy. Avoid antiarrhythmic drug therapy at this point time. CHADSVASc score of 3. Continue full oral anticoagulation, currently on Eliquis. Recommend CPAP therapy. Continue participate in aggressive weight loss program. She does have frequent PACs although there was symptomatic in his not a target for treatment although makes him more prone to get atrial fibrillation in the future. (2) Exertional chest pain: Code(s): R07.9 - Chest pain, unspecified Category: Medical Plan: Exertional chest pain which has now resolved does not have any significant chest pain at this point time. Continue Cardizem therapy. Abnormal stress test which would suggest underlying obstructive coronary artery disease. Advised to follow through with coronary CTA. Advised to avoid sudden strenuous isometric exercise. (3) Pulmonary hypertension: Code(s): I27.20 - Pulmonary hypertension, unspecified Category: Medical Plan: Pulmonary hypertension which could be related to obesity hypoventilation and/or sleep apnea. Recommend CPAP therapy. Continue participate in aggressive weight loss program. Follow-up limited echocardiogram in 4 months time. Will follow up in the clinic in 4 months time, sooner p.r.n.. Thank you for allowing me to partake in his care Orders: Orders Basic Metabolic Panel Today I48.92 - Unspecified atrial flutter Coding Level of Care Code Est Pt Level 4 (33447) Complex EM visit Add On G2211 Diagnoses Atrial flutter, unspecified type I48.92 Atrial flutter type: unspecified Exertional chest pain R07.9 Pulmonary hypertension I27.20 CPT Codes EKG - CPT: 66643-Nwqannbsyzsjokimz, Complete ([id number])
--- OUTSIDE RECORDS SUMMARY | 2025-01-10 13:03 | XMS_ITS | Encounter Summary ---
Author Organization [facility] Address [address] [place] [address] Care Team Providers Care Restaurant General Manager Name Role Phone Sugey Rice MD Primary Care Provider [phone] Encounter Details Date Type Department Care Team (Late st Contact Info) Description 01/02/2022 Erroneous Encounter [facility] CONVERSION DEPT [address] [place] [address] Provider, MD Frank Social History Tobacco Use [...] Care Team (Late st Contact Info) Description 03/23/2025 10:00 AM EDT [facility] Visit [facility] [address] [place] [address] Gurjit Steele MD 31 [facility] 100 [place] [address] 06/29/2025 10:30 AM EDT Office Visit [facility] [place] [address] [place] [phone] Josef Loya MD 80 [place] [address] documented as of this encounter Visit Diagnoses Not on filedocumented in this encounter Care Teams Restaurant General Manager Relationship Specialty Start Date End Date Sugey Rice MD 3640 [place] [address] PCP - General Family Medicine 05/05/23 documented as of this encounter
--- OUTSIDE RECORDS SUMMARY | 2025-01-10 13:03 | XMS_ITS | Encounter Summary ---
Author Organization [facility] Address [address] [place] [address] Care Team Providers Care Emergency Medical Technician Basic Name Role Phone Sugey Rice MD Primary Care Provider [phone] Reason for Visit * Reason Comments Appointment Encounter Details Date Type Department Care Team (Late Contact Info) Description 02/05/[address] [address] Josef Loya MD 80 [place] [address] Appointment Social History Tobacco Use Types Packs/Day Years Used Date Smoking Tobacco: Never Assessed Sex and Gender Information Value Date Recorded Sex Assigned at Female 02/23/2024 1:19 PM EDT Gender Identity Female 02/23/2024 1:19 PM EDT Sexual Orientation Heterosexual (straight) 02/22 1:19 PM EDT documented as of this encounter Plan of Treatment Upcoming Encounters Date Type Department Care Team (Late Contact Info) Description 03/23/2025 10:00 AM EDT [facility] Visit [facility] [address] [place] [address] Gurjit Steele MD [address] [address] 06/29/2025 10:30 AM EDT Office Visit [facility] [place] [phone] Josef Loya MD [address] [place] [address] documented as of this encounter Visit Diagnoses Not on filedocumented in this encounter Care Teams Emergency Medical Technician Basic Relationship Specialty Start Date End Date Sugey Rice MD [address] [address] PCP - General Family Medicine 05/05/23 documented as of this encounter
--- OUTSIDE RECORDS SUMMARY | 2025-01-10 13:03 | XMS_ITS | Encounter Summary ---
Author Organization [facility] Address [address] [place] [address] Phone Care Team Providers Care Facilities Engineering Manager Name Role Phone Sugey Rice MD Primary Care Provider [phone] Encounter Details Date Type Department Care Team (Late st Contact Info) Description 12/17/2024 Documentation Only [facility] [place], [address] [facility] [place] [phone] Lissett Zacarias[place]ANKLIN [place], [place] [address] [place] [address] Social History Tobacco Use Types [...] Visit [facility] [place] [facility] [place] [address] [place] [phone] Leonardo Stovall [address] [facility] [place] [phone] documented as of this encounter Visit Diagnoses Not on filedocumented in this encounter Care Teams Facilities Engineering Manager Relationship Specialty Start Date End Date Sugey Rice MD [address] [phone] PCP - General Family Medicine 09/04/21 documented as of this encounter
--- OUTSIDE RECORDS SUMMARY | 2025-01-10 13:03 | XMS_ITS | Encounter Summary ---
Author Organization [facility] Address [address] [place] [address] Care Team Providers Care Proof Machine Operator Name Role Phone Sugey Rice MD Primary Care Provider [phone] Encounter Details Date Type Department Care Team (Late st Contact Info) Description 05/29/2023 Scanned Document Orthopedic [address] [phone] Leif Reed MD [address] [place] [address] Social History Tobacco Use Types Packs/Day Years [...] 10:00 AM EDT [facility] [address] [address] Gurjit Steele MD [address] [place] [address] 06/29/2025 10:30 AM EDT Office Visit [facility] [place] [phone] Josef Loya MD [address] [place] [address] documented as of this encounter Visit Diagnoses Not on filedocumented in this encounter Care Teams Proof Machine Operator Relationship Specialty Start Date End Date Sugey Rice MD [address] [address] PCP - General Family Medicine 05/05/23 documented as of this encounter
--- OUTSIDE RECORDS SUMMARY | 2025-01-10 13:03 | XMS_ITS | Encounter Summary ---
Author Organization [facility] Address 100 [place] [address] Care Team Providers Care Technology Coordinator Name Role Phone Sugey Rice MD Primary Care Provider [phone] Reason for Visit * Reason Comments Other Pre-op Encounter Details Date Type Department Care Team ([facility] st Contact Info) Description 03/15/2024 Telephone [facility] [place] [address] [address] Josef Loya MD 80 [place] [address] Other (Pre-op ) Social History Tobacco Use [...] AM EDT Office Visit [facility] [address] [place] [address] Gurjit Steele MD 31 [facility] 100 [place] [address] 06/29/2025 10:30 AM EDT Office Visit [facility] [place] [address] [place] [phone] Josef Loya MD 80 [place] [address] documented as of this encounter Visit Diagnoses Not on filedocumented in this encounter Care Teams Technology Coordinator Relationship Specialty Start Date End Date Sugey Rice MD [address] [place] [address] 207 [place] [address] PCP - General Family Medicine 05/05/23 documented as of this encounter
--- OUTSIDE RECORDS SUMMARY | 2025-01-10 13:03 | XMS_ITS | Encounter Summary ---
Author Organization [facility] Address [address] [place] [address] Phone Care Team Providers Care Brazer Crawler Torch Name Role Phone Sugey Rice MD Primary Care Provider [phone] Encounter Details Date Type Department Care Team (Late st Contact Info) Description 12/10/2024 Documentation Only [facility] [place], [address] [facility] [place] [phone] L[place]ett [place], [place] [address] [place] [address] Social History Tobacco Use Types [...] Visit [facility] [place] [facility] [place] [address] [place] [phone] Leonardo Stovall [address] [facility] [place] [phone] documented as of this encounter Visit Diagnoses Not on filedocumented in this encounter Care Teams Brazer Crawler Torch Relationship Specialty Start Date End Date Sugey Rice MD [address] [phone] PCP - General Family Medicine 09/04/21 documented as of this encounter
--- OUTSIDE RECORDS SUMMARY | 2025-01-10 13:03 | XMS_ITS | Clinical Summary ---
Author Organization [address] Address [address] [place] [address] Phone Care Team Providers Care Impregnator Carbon Products Name Role Phone Sugey Rice MD Primary Care Provider [phone] Allergies Active Allergy Reactions Criticality Noted Date Comments Amoxicillin 12/10/2024 Ciprofloxacin Hcl 12/10/2024 Latex 12/10/2024 Medications pravastatin (PRAVACHOL) 10 mg tablet Take 1 tablet (10 mg total) by mouth at bedtime. 4 Active potassium citrate (UROCIT-K) 10 mEq (1,080 mg) CR tablet PLEASE SEE ATTACHED FOR DETAILED DIRECTIONS Active losartan (COZAAR) 50 mg tablet Take 1 tablet (50 mg total) by mouth 1 (one) time each day. Active dilTIAZem CD (CARDIZEM CD) 120 mg 24 hr capsule Take 1 capsule (120 mg total) by mouth 1 (one) time each day. 5 Active cholecalciferol (VITAMIN D-3) 50 mcg (2,000 unit) capsule Vitamin D3 50 mcg (2,000 unit) capsule Take 1 capsule every day by oral route. Active Eliquis 5 mg tablet Take 1 tablet (5 mg total) by mouth 2 (two) times a day. 5 Active omeprazole (PriLOSEC) [address] capsuleIndicati ons:GERD (gastroesophage al reflux disease) Take 1 capsule (40 mg total) by mouth 1 (one) time each day. 90 each 3 5 12/10/19 26 Active Encounters Date Type Department Care Team Description 12/10/2024 9:00 AM EST Office Visit Gastroenterology - [address] [place] [address] Nano Brown MD Irritable bowel syndrome without [...] drink = 0.6 oz pur e alcohol) Comments Unknown Sex and Gender Information Value Date Recorded Sex Assigned at Not on file Legal Sex Female 10:43 AM EST Gender Identity Not on file Sexual Orientation Not on file Occupation Industry Job Start Date Job End Date retired Not on file Not on file Not [...] 10/24/2033 10/24/2023, 04/17/2012 Zoster Vaccines Completed 05/08/2022, 0303/2019, 07/19/2014 Pneumococcal Vaccine: 50+ Years Completed 07/17/2022, 07/19/2021, 07/19/2020 RSV Immunization [...] patient's age to complete this topic Meningococcal B Vacine Aged Out No lo nger eligible based on patient's age to complete [...] AM EDT) Anatomical Region Laterality Modality Endoscopy [facility] Provider GI~PROCEDURE ORDERABLES F inal Result from Last 3 Months or Most Recently Relevant to Health [place] [phone] MEDICARE Care Teams Impregnator Carbon Products Relationship Specialty Start Date End Date Sugey Rice MD [address] [address] PCP - General Family Medicine 10/07/24
--- OUTSIDE RECORDS SUMMARY | 2025-01-10 13:03 | XMS_ITS | Encounter Summary ---
Author Organization [facility] Address [address] [place] [address] Care Team Providers Care Aquatic Director Name Role Phone Sugey Rice MD Primary Care Provider Reason for Visit * Reason Comments Follow-up Encounter Details Date Type Department Care Team ([facility] st Contact Info) Description 12/22/2024 10:00 AM EST Office Visit [facility] [place] [address] Gurjit Steele MD [address] [place] [address] CMC arthritis (Primary Dx) Social History Tobacco Use Types Packs/Day Years [...] PM EDT documented as of this encounter Progress Notes * Gurjit Steele MD - 12/22/2024 10:00 AM EST Images from the original note were not included. 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 Discussed that the weakness will continue to improve moving forward. Plan to see her back in 3 months time for repeat clinical check. She has any issues or concerns before then I would be happy to see her sooner. The patient was informed of their diagnosis and treatment options. Medical decision-making involvedassessing all known acute and chronic conditions, the relationship of diagnoses, systemic effects, and acute exacerbations. External medical notes and results from diagnostic tests were reviewed whenapplicable. The risks and benefits of operative and non-operative treatment, including side effectsor complications of of interventions (including medication and therapy) possible complications withand without treatment and when to proceed with options for surgery were reviewed. An independent historian was utilized if present, and communications were sent to listed providers. Any social or phys ica determent of health, when relevant and recognized, was addressed. All necessary electronic precharting, postcharting and dictation was factored into clinical time documentation. History of Present Illness: Danita Randle is a 69 y.o. female who presents today for follow-up for her right thumb. She is about 3 months out from her date of surgery. The patient has been working with therapy and is doing welloverall. She not having any issues or problems with the thumb. Physical Exam On examination of the right thumb there is no significant swelling, ecchymosis, or erythema. Incisions are well-healed. The patient has good circumduction of the thumb without any impingement or crepitus noted. Patient is sensate along the dorsal sensory branch of radial nerve. Patient demonstratesintact EPL and FPL function without clicking or locking. The thumb is warm well perfused and capillary fill is brisk. ROS Answers submitted by the patient for this visit: Review of Systems (Submitted on 12/21/2024) Appetite change: No Chills: No Fever: No Weight Change: No Hearing loss: No Sore throat: No Ringing in the ears: No Trouble swallowing: No Eye redness: No Visual disturbance: No Cough: No Shortness of breath: No Wheezing: No Leg swelling: No Palpitations: No Abdominal pain: No Blood in stool: No Constipation: No Diarrhea: No Nausea: No Vomiting: No Cold intolerance: No Heat intolerance: No Excessive thirst: No Difficulty urinating: No Painful urination: No Flank pain: No Frequent urination: No Blood in urine: No Vaginal bleeding: No Vaginal pain: No Joint pains: No Back pain: No Muscle pains: No Rash: No Wound: No Environmental allergies: No Food allergies: No Low immune system: No Dizziness: No Headaches: No Numbness: No Seizures: No Fainting: No Tremors: No Swollen glands: No Easy bruising/bleeding: No Behavioral problem: No Nervous/anxious: No Sleep disturbance: No Visit Orders. 1. CMC arthritis Portions of this record may have been created with voice recognition software. Occasional wrong-word or [id number] substitutions may have occurred due to the inherent limitations of voice recognition software. An attempt has been made to proofread this record, however some errors may still exist. Please read the chart carefully and recognize, using context, where substitutions have occurred. Please do not hesitate to reach out if clarification is required. Gurjit Steele MD documented in this encounter Plan of Treatment Upcoming Encounters Date Type Department Care Team (Late st Contact Info) Description 03/23/2025 10:00 AM EDT [facility] [address] [address] Gurjit Steele MD [address] [address] 06/29/2025 10:30 AM EDT Office Visit [facility] [place] [address] [place] [address] Josef Loya MD [address] [place] [address] documented as of this encounter Visit Diagnoses Diagnosis CMC arthritis- Primary documented in this encounter Care Teams Aquatic Director Relationship Specialty Start Date End Date Sugey Rice MD 3640 [facility] [address] [place] [address] PCP - General Family Medicine 05/05/23 documented as of this encounter
--- OUTSIDE RECORDS SUMMARY | 2025-01-10 13:04 | XMS_ITS | Encounter Summary ---
Author Organization [facility] Address [address] [place] [address] Phone Care Team Providers Care Legal Aide Name Role Phone Sugey Rice MD Primary Care Provider [phone] Encounter Details Date Type Department Care Team (Late st Contact Info) Description 03/19/2024 Documentation Only [facility] [place], [address] [place] [phone] [place], [place] [address] [place] [address] Social History Tobacco Use Types [...] Visit [facility] [place] [facility] [place] [address] [place] [phone] Leonardo Stovall [address] [facility] [place] [address] documented as of this encounter Visit Diagnoses Not on filedocumented in this encounter Care Teams Legal Aide Relationship Specialty Start Date End Date Sugey Rice MD [address] [phone] PCP - General Family Medicine 09/04/21 documented as of this encounter
--- OUTSIDE RECORDS SUMMARY | 2025-01-10 13:04 | XMS_ITS | Encounter Summary ---
Author Organization [facility] Address [address] [place] [address] Phone Care Team Providers Care Microsoft Dynamics Ax Consultant Name Role Phone Sugey Rice MD Primary Care Provider [phone] Encounter Details Date Type Department Care Team (Late Contact Info) Description 07/22/2023 Documentation Only [facility] [place], [address] [place] [phone] Leonardo Stovall DO [address] [facility] [place] [address] Social History Tobacco Use Types [...] Visit [facility] [place] [facility] [place] [address] [place] [phone] Leonardo Stovall DO [address] [facility] [place] [address] documented as of this encounter Visit Diagnoses Not on filedocumented in this encounter Care Teams Microsoft Dynamics Ax Consultant Relationship Specialty Start Date End Date Sugey Rice MD [address] [address] PCP - General Family Medicine 09/04/21 documented as of this encounter
--- OUTSIDE RECORDS SUMMARY | 2025-01-10 13:04 | XMS_ITS | Encounter Summary ---
Author Organization [facility] Address [address] [place] [address] Phone Care Team Providers Care Automation Mechanic Name Role Phone Sugey Rice MD Primary Care Provider [phone] Encounter Details Date Type Department Care Team (Late st Contact Info) Description 10/08/2024 Telephone [facility] [place], [address] [place] [address] Brook Velez [address] [place] [address] Social History Tobacco Use Types [...] if ok to start. Thanks in advance! [phone] documented in this encounter Plan of Treatment Upcoming Encounters Date Type Department Care Team (Late st Contact Info) Description 05/03/2025 4:15 PM EDT Office Visit [facility] [address] [place] [address] Leonardo Stovall DO [address] [place] [address] documented as of this encounter Visit Diagnoses Not on filedocumented in this encounter Care Teams Automation Mechanic Relationship Specialty Start Date End Date Sugey Rice MD [address] [address] PCP - General Family Medicine 09/04/21 documented as of this encounter
--- OUTSIDE RECORDS SUMMARY | 2025-01-10 13:04 | XMS_ITS | Encounter Summary ---
Author Organization [facility] Address [address] [place] [address] Phone Care Team Providers Care Epic Cupid Specialists Name Role Phone Sugey Rice MD Primary Care Provider Encounter Details Date Type Department Care Team (Late Contact Info) Description 07/25/2023 Documentation Only [facility] [place], [address] [place] [phone] Leonardo Stovall DO [address] [facility] [place] [address] Social History Tobacco Use Types [...] Visit [facility] [place] [facility] [place] [address] [place] [phone] Leonardo Stovall DO [address] [facility] [place] [address] documented as of this encounter Visit Diagnoses Not on filedocumented in this encounter Care Teams Epic Cupid Specialists Relationship Specialty Start Date End Date Sugey Rice MD [address] [address] PCP - General Family Medicine 09/04/21 documented as of this encounter
--- OUTSIDE RECORDS SUMMARY | 2025-01-10 13:04 | XMS_ITS | Encounter Summary ---
Author Organization [facility] Address [address] [place] [address] Phone Care Team Providers Care Resume Writer Name Role Phone Sugey Rice MD Primary Care Provider [phone] Encounter Details Date Type Department Care Team (Late Contact Info) Description 08/04/2023 Documentation Only [facility] [place], [address] [place] [phone] Leonardo Stovall DO [address] [facility] [place] [address] Social History Tobacco Use Types [...] Visit [facility] [place] [facility] [place] [address] [place] [phone] Leonardo Stovall DO [address] [facility] [place] [address] documented as of this encounter Visit Diagnoses Not on filedocumented in this encounter Care Teams Resume Writer Relationship Specialty Start Date End Date Sugey Rice MD [address] [phone] PCP - General Family Medicine 09/04/21 documented as of this encounter
--- OUTSIDE RECORDS SUMMARY | 2025-01-10 13:04 | XMS_ITS | Encounter Summary ---
Author Organization [facility] Address [address] [place] [address] Phone Care Team Providers Care Car Installations Supervisor Name Role Phone Sugey Rice MD Primary Care Provider [phone] Encounter Details Date Type Department Care Team (Late st Contact Info) Description 07/29/2023 Documentation Only [facility] [place], [address] [place] [phone] [place], [place] [address] [place] [address] Social History Tobacco Use Types [...] Visit [facility] [place] [facility] [place] [address] [place] [phone] Leonardo Stovall [address] [facility] [address] [place] [address] documented as of this encounter Visit Diagnoses Not on filedocumented in this encounter Care Teams Car Installations Supervisor Relationship Specialty Start Date End Date Sugey Rice MD [address] [phone] PCP - General Family Medicine 09/04/21 documented as of this encounter
--- OUTSIDE RECORDS SUMMARY | 2025-01-10 13:04 | XMS_ITS | Encounter Summary ---
Author Organization [facility] Address [address] [place] [address] Phone Care Team Providers Care White Lead Grinder Name Role Phone Sugey Rice MD Primary Care Provider [phone] Reason for Visit * Reason Comments Med Refill Encounter Details Date Type Department Care Team (Late st Contact Info) Description 10/24/2024 Refill [facility] [address] [place] [address] Leonardo Stovall DO [address] [address] [place] [address] Social History Tobacco Use Types [...] Visit [facility] [place] [address] Leonardo Stovall DO [address] [address] [place] [address] documented as of this encounter Visit Diagnoses Not on filedocumented in this encounter Care Teams White Lead Grinder Relationship Specialty Start Date End Date Sugey Rice MD [address] [phone] PCP - General Family Medicine 09/04/21 documented as of this encounter
--- OUTSIDE RECORDS SUMMARY | 2025-01-10 13:04 | XMS_ITS | Patient Health Record ---
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
--- OUTSIDE RECORDS SUMMARY | 2025-01-10 13:04 | XMS_ITS | Clinical Summary ---
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); Stiffness of left hand joint 10/27/2024 11:30 AM EST Treatment Orthopedic [address] [address] Mariela Moe OT 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); Stiffness of left hand joint 10/27/2024 10:45 AM EST [place] [address] Gurjit Steele MD 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, unspecified osteoarthritis type (Primary Dx) from Last 3 Months Social [...] AM EDT [facility] Visit [facility] [address] [place] [address] Gurjit Steele MD [address] [place] [address] [address] [place] [address] 06/29/2025 10:30 AM EDT Office Visit [facility] Urology [place] [address] Josef Loya MD [address] [place] [address] Health Maintenance Due Date Last Done Comments Hepatitis C Virus Screening 1955 DTaP/Tdap/Td Vaccines (1 - Tdap) 1974 Mammogram 1995 Colonoscopy 2000 Pneumococcal Vaccines 50+ (1 of 1 - PCV) 2005 Zoster (Shingles) Vaccine (1 of 2) 2005 DXA Bone Density (Females,Ages 65 and older) 2020 RSV Vaccine 60 years and older and Patients (1 - 1-dose 75+ series) 2030 Influenza Vaccine Completed 08/03/2024, , 07/20/2023, Additional history exists COVID-19 Vaccine Completed 08/11/2024, , 08/03/2022, Additional history exists Hepatitis B Vaccines Aged Out No long er eligible based on patient's age to complete this topic Medical Devices Explanted Type Area Associate Faculty Device Identifier Shelf Expiration Date Model / Serial / Lot [id number] Stent Ureteral 6fr 26cm Taper Tip Bldr Benjie Lp Contour Hdr+ - [id number] Implanted:Qty : 1 on 03/29/2024 by Josef Loya MD at [facility] Explanted:Qty : 1 on 04/07/2024 by Josef Loya MD Stent Right: Ureter [employer] DIANA [id number] 11/30/2026 [id number] Care Teams Field Marketing Director Relationship Specialty Start Date End Date Sugey Rice MD 36[address] [facility] [address] [place] [address] PCP - General Family Medicine 05/05/23
--- OUTSIDE RECORDS SUMMARY | 2025-01-10 13:04 | XMS_ITS | Encounter Summary ---
Author Organization [facility] Address [address] [place] [address] Phone Care Team Providers Care Cold Header Name Role Phone Sugey Rice MD Primary Care Provider [phone] Encounter Details Date Type Department Care Team (Late Contact Info) Description 04/28/2024 Documentation Only [facility] [place], [address] [phone] Leonardo Stovall DO [address] [facility] [place] [place] [address] Social History Tobacco Use Types [...] Visit [facility] [place] [facility] [place] [address] [place] [phone] Leonardo Stovall DO [address] [place] [address] documented as of this encounter Visit Diagnoses Not on filedocumented in this encounter Care Teams Cold Header Relationship Specialty Start Date End Date Sugey Rice MD [address] [phone] PCP - General Family Medicine 09/04/21 documented as of this encounter
--- OUTSIDE RECORDS SUMMARY | 2025-01-10 13:04 | XMS_ITS | Encounter Summary ---
Author Organization [facility] Address [address] [place] [address] Care Team Providers Care Ophthalmic Medical Technician Name Role Phone Sugey Rice MD Primary Care Provider [phone] Encounter Details Date Type Department Care Team (Late Contact Info) Description 09/23/2024 Scanned Document [facility] [address] [phone] Gurjit Steele MD [address] [place] [address] Social History Tobacco Use Types Packs/Day Years [...] AM EDT [facility] [address] [place] [address] Gurjit Steele MD [address] [facility] 100 [place] [address] 06/29/2025 10:30 AM EDT Office Visit [facility] [place] [address] [place] [address] Josef Loya MD 80 [place] [address] documented as of this encounter Visit Diagnoses Not on filedocumented in this encounter Care Teams Ophthalmic Medical Technician Relationship Specialty Start Date End Date Sugey Rice MD [address] [place] [address] [address] [place] [address] PCP - General Family Medicine 05/05/23 documented as of this encounter
--- OUTSIDE RECORDS SUMMARY | 2025-01-10 13:04 | XMS_ITS | Clinical Summary ---
Author Organization [facility] [place], Address [address] [place] [address] [place] [address] Phone Care Team Providers Care Pathology Assistant Name Role Phone Sugey Rice MD Primary Care Provider [phone] Allergies Active Allergy Reactions Criticality Noted Date [...] time each day 90 tablet 3 4 08/24/20 25 Active potassium citrate 10 MEQ (1080 MG) CR tablet Take 2 tablets (20 mEq total) by mouth in the morning and 2 tablets (20 mEq total) at noon and 2 tablets (20 mEq total) in the evening. Take with meals. Do not crush, chew, or split.. 540 tablet 3 4 08/24/20 25 Active pravastatin (PRAVACHOL) 10 MG tablet Take 10 mg by mouth 1 (one) time each day Active dilTIAZem CD (CARDIZEM CD) 120 MG 24 hr capsule Take 120 mg by mouth 1 (one) time each day Active apixaban (Eliquis) 5 MG tablet Take 5 mg by mouth in the morning and 5 mg in the evening. Active Active Problems Problem Noted Date Diagnosed [...] Only [facility] [address] [place] [address] Lissett Zacarias [place] 12/10/2024 2:00 PM EST Office Visit [facility] [address] [place] [address] Leonardo Stovall DO Stage 3a chronic kidney disease (HCC) (Primary Dx); Hypertensive heart and chronic kidney disease without heart failure, with stage 1 through stage 4 chronic kidney disease, or unspecified chronic kidney disease; Uric acid renal calculus; Essential hypertension 12/10/2024 Documentation Only [facility] [address] [place] [address] Lissett Zacarias [place] 10/24/2024 Refill [facility] [address] [place] [address] Leonardo Stovall DO from Last 3 Months Immunizations Name Administration [...] Kidney disease Sibling 1 Son - high medic technician Cancer Sibling 2 brother-SCC Relation Status Comments [...] Visit [facility] [place] [facility] [place] [address] [place] [address] Leonardo Stovall DO [address] [place] [address] Dr. [place] [address] Health Maintenance Due Date Last Done Comments Breast Cancer Screening 1955 Colorectal Cancer Screening: Annual FOBT 2004 Colorectal Cancer Screening: Colonoscopy 2004 Colorectal Cancer Screening: Sigmoidoscopy 2004 Pneumococcal Vaccine: 65+ Years Completed 07/17/2022, 07/19/2021, 07/19/2020 Influenza Vaccine Completed 08/03/2024, , 07/28/2021, Additional history exists Hepatitis B Vaccine Aged Out No longe r eligible based on patient's age to complete this topic Insurance [facility] MEDICARE Care Teams Pathology Assistant Relationship Specialty Start Date End Date Sugey Rice MD [address] [phone] PCP - General Family Medicine 09/04/21
--- OUTSIDE RECORDS SUMMARY | 2025-01-10 13:04 | XMS_ITS | Clinical Summary ---
Author Organization [facility] Address [address] [place] [address] Care Team Providers Care Clinic Physician Name Role Phone Pcp, No MD Primary [...] capsule Take by mouth. 2 Active cartilage-colla okb-yan-zjkilm 40-5-3.3 mg tablet daily. Active lisinopriL (PRINIVIL) [...] patient's age to complete this topic Insurance [facility] MEDICARE PART A & B Care Teams Clinic Physician Relationship Specialty Start Date End Date Gloria Zuñiga MD [address] [place] [address] PCP - General Internal Medicine 07/02/22
== END 2025-01-10 12:10 | disposition home or self-care (01) ==
PROVIDERS: PCP Family Medicine; Visit Provider Internal Medicine Cardiovascular Disease
DX: I48.92 Unspecified atrial flutter (principal); R07.9 Chest pain, unspecified; I27.20 Pulmonary hypertension, unspecified
CPT/HCPCS: 93010; 99214; G2211

== ENCOUNTER 2025-01-10 11:18 | Outpatient (REF) | payer MEDICARE, OTHER, SELFPAY ==
--- OUTSIDE RECORDS SUMMARY | 2025-01-10 14:24 | XMS_ITS | Encounter Summary ---
Author Organization [facility] Address [address] [place] [address] Care Team Providers Care Clinic Supervisor Name Role Phone Sugey Rice MD Primary Care Provider [phone] Reason for Visit * Reason Comments Appointment Encounter Details Date Type Department Care Team (Late Contact Info) Description 02/05/[address] [address] Josef Loya MD 80 [place] [address] Appointment Social History Tobacco Use Types Packs/Day [...] AM EDT [facility] Visit [facility] [address] [place] [address] Gurjit Steele MD [address] [address] 06/29/2025 10:30 AM EDT Office Visit [facility] Urology [address] [phone] Josef Loya MD [address] [place] [address] documented as of this encounter Visit Diagnoses Not on filedocumented in this encounter Care Teams Clinic Supervisor Relationship Specialty Start Date End Date Sugey Rice MD [address] [address] PCP - General Family Medicine 05/05/23 documented as of this encounter
--- OUTSIDE RECORDS SUMMARY | 2025-01-10 14:24 | XMS_ITS | Encounter Summary ---
Author Organization [facility] Address [address] [place] [address] Phone Care Team Providers Care Telecommunications Clerk Name Role Phone Sugey Rice MD Primary Care Provider [phone] Encounter Details Date Type Department Care Team (Late Contact Info) Description 07/22/2023 Documentation Only [facility] [place], [address] [address] [place] [address] Leonardo Stovall DO [address] [facility] [place] [address] Social History Tobacco Use Types [...] Visit [facility] [place] [facility] [place] [address] [place] [phone] Leonardo Stovall DO [address] [facility] [place] [address] documented as of this encounter Visit Diagnoses Not on filedocumented in this encounter Care Teams Telecommunications Clerk Relationship Specialty Start Date End Date Sugey Rice MD [address] [address] PCP - General Family Medicine 09/04/21 documented as of this encounter
--- OUTSIDE RECORDS SUMMARY | 2025-01-10 14:24 | XMS_ITS | Encounter Summary ---
Author Organization [facility] Address [address] [place] [address] Phone Care Team Providers Care Lumber Handler Name Role Phone Sugey Rice MD Primary Care Provider [phone] Encounter Details Date Type Department Care Team (Late st Contact Info) Description 10/08/2024 Telephone [facility] [place], [address] [place] [address] Brook Velez [address] [place] [address] Social History Tobacco Use Types [...] if ok to start. Thanks in advance! [phone] documented in this encounter Plan of Treatment Upcoming Encounters Date Type Department Care Team (Late st Contact Info) Description 05/03/2025 4:15 PM EDT Office Visit [facility] [address] [place] [address] Leonardo Stovall DO [address] [place] [address] documented as of this encounter Visit Diagnoses Not on filedocumented in this encounter Care Teams Lumber Handler Relationship Specialty Start Date End Date Sugey Rice MD [address] [address] PCP - General Family Medicine 09/04/21 documented as of this encounter
--- OUTSIDE RECORDS SUMMARY | 2025-01-10 14:24 | XMS_ITS | Encounter Summary ---
Author Organization [facility] Address [address] [place] [address] Care Team Providers Care Senior Interactive Producer Name Role Phone Sugey Rice MD Primary Care Provider [phone] Reason for Visit * Reason Comments Other Pre-op Encounter Details Date Type Department Care Team ([facility] st Contact Info) Description 03/15/2024 Telephone [facility] Urologic Surgery [place] [address] [address] Josef Loya MD 80 [place] [address] Other (Pre-op ) Social History Tobacco Use [...] AM EDT [facility] Visit [facility] [address] [place] [address] Gurjit Steele MD 31 [facility] [address] [place] [address] 06/29/2025 10:30 AM EDT Office Visit [facility]rology [place] [address] [place] [phone] Josef Loya MD 80 [place] [address] documented as of this encounter Visit Diagnoses Not on filedocumented in this encounter Care Teams Senior Interactive Producer Relationship Specialty Start Date End Date Sugey Rice MD [address] [place] [address] 207 [place] [address] PCP - General Family Medicine 05/05/23 documented as of this encounter
--- OUTSIDE RECORDS SUMMARY | 2025-01-10 14:24 | XMS_ITS | Encounter Summary ---
Author Organization [facility] Address [address] [place] [address] Phone Care Team Providers Care Paper Bag Machine Operator Name Role Phone Sugey Rice MD Primary Care Provider [phone] Encounter Details Date Type Department Care Team (Late Contact Info) Description 04/28/2024 Documentation Only [facility] [place], [address] [facility] [address] [place] [address] Leonardo Stovall DO [address] [facility] [place] [place] [address] Social History Tobacco Use Types [...] Visit [facility] [place] [facility] [place] [address] [place] [phone] Leonardo Stovall DO [address] [facility] [place] [address] documented as of this encounter Visit Diagnoses Not on filedocumented in this encounter Care Teams Paper Bag Machine Operator Relationship Specialty Start Date End Date Sugey Rice MD [address] [address] PCP - General Family Medicine 09/04/21 documented as of this encounter
--- OUTSIDE RECORDS SUMMARY | 2025-01-10 14:24 | XMS_ITS | Encounter Summary ---
Author Organization [facility] Address [address] [place] [address] Care Team Providers Care Technical Healthcare Consultant Name Role Phone Sugey Rice MD Primary Care Provider [phone] Reason for Visit * Reason Comments Follow-up Encounter Details Date Type Department Care Team ([facility] st Contact Info) Description 12/22/2024 10:00 AM EST Office Visit [facility] [place] [address] Gurjit Steele MD [address] [place] [address] [facility] arthritis (Primary Dx) Social History Tobacco [...] from the original note were not included. [address] [facility] [address] [address] Encounter Date: 12/22/2024 Assessment Status post right [...] with voice recognition software. Occasional wrong-word or rtisq-u-kljw substitutions may have occurred due to the [...] 10:00 AM EDT [facility] [address] [address] Gurjit Steele MD [address] [place] [address] [address] 06/29/2025 10:30 AM EDT Office Visit [facility] Urology [place] [address] [place] [address] Josef Loya MD 80 [place] [address] documented as of this encounter Visit Diagnoses Diagnosis [facility] arthritis- Primary documented in this encounter Care Teams Technical Healthcare Consultant Relationship Specialty Start Date End Date Sugey Rice MD [address] [facility] [address] [place] [address] PCP - General Family Medicine 05/05/23 documented as of this encounter
--- OUTSIDE RECORDS SUMMARY | 2025-01-10 14:24 | XMS_ITS | Encounter Summary ---
Author Organization [facility] Address [address] [place] [address] Care Team Providers Care Cash Controller Name Role Phone Sugey Rice MD Primary Care Provider [phone] Encounter Details Date Type Department Care Team (Late st Contact Info) Description 05/29/2023 Scanned Document Orthopedic [address] [phone] Leif Reed MD [address] [place] [address] Social History Tobacco Use Types Packs/Day Years [...] AM EDT [facility] [address] [address] Gurjit Steele MD [address] [place] [address] 06/29/2025 10:30 AM EDT Office Visit [facility] Urology [address] [phone] Josef Loya MD [address] [place] [address] documented as of this encounter Visit Diagnoses Not on filedocumented in this encounter Care Teams Cash Controller Relationship Specialty Start Date End Date Sugey Rice MD [address] [address] PCP - General Family Medicine 05/05/23 documented as of this encounter
--- OUTSIDE RECORDS SUMMARY | 2025-01-10 14:24 | XMS_ITS | Encounter Summary ---
Author Organization [facility] Address [address] [place] [address] Phone Care Team Providers Care Pallet Rectifier Name Role Phone Sugey Rice MD Primary Care Provider [phone] Encounter Details Date Type Department Care Team (Late st Contact Info) Description 03/19/2024 Documentation Only [facility] [place], [address] [facility] [place] [address] Lissett Zacarias[place]EM[place], [place] 2150 [place] [address] Social History Tobacco Use Types [...] Visit [facility] [place] [facility] [place] [address] [place] [address] Leonardo Stovall [address] [facility] [place] [address] documented as of this encounter Visit Diagnoses Not on filedocumented in this encounter Care Teams Pallet Rectifier Relationship Specialty Start Date End Date Sugey Rice MD [address] [phone] PCP - General Family Medicine 09/04/21 documented as of this encounter
--- OUTSIDE RECORDS SUMMARY | 2025-01-10 14:24 | XMS_ITS | Encounter Summary ---
Author Organization [facility] Address [address] [place] [address] Care Team Providers Care Sales Representative Malt Liquors Name Role Phone Sugey Rice MD Primary Care Provider Encounter Details Date Type Department Care Team (Late st Contact Info) Description 01/02/2022 Erroneous Encounter [facility] CONVERSION DEPT [address] [place] [address] Provider, MD Frank Social History Tobacco Use [...] AM EDT Office Visit [facility] [address] [place] [address] Gurjit Steele MD 31 [facility] 100 [place] [address] 06/29/2025 10:30 AM EDT Office Visit [facility]rology [place] [address] [place] [phone] Josef Loya MD 80 [place] [address] documented as of this encounter Visit Diagnoses Not on filedocumented in this encounter Care Teams Sales Representative M[employer] Liqu[employer] Relationship Specialty Start Date End Date Sugey Rice MD 3640 [place] [address] PCP - General Family Medicine 05/05/23 documented as of this encounter
--- OUTSIDE RECORDS SUMMARY | 2025-01-10 14:24 | XMS_ITS | Clinical Summary ---
Author Organization [address] Address [address] [place] [address] Phone Care Team Providers Care Bushel Worker Name Role Phone Sugey Rice MD Primary Care Provider [phone] Allergies Active Allergy Reactions Criticality Noted Date [...] Office Visit Gastroenterology - [address] [place] [address] Nano Brown MD Irritable [...] AM EDT) Anatomical Region Laterality Modality [facility] Provider GI~PROCEDURE ORDERABLES F inal Result from Last 3 Months or Most Recently Relevant to Health [place] [address] MEDICARE Care Teams Bushel Worker Relationship Specialty Start Date End Date Sugey Rice MD [address] [address] PCP - General Family Medicine 10/07/24
--- OUTSIDE RECORDS SUMMARY | 2025-01-10 14:24 | XMS_ITS | Encounter Summary ---
Author Organization [facility] Address [address] [place] [address] Phone Care Team Providers Care Hardboard Press Operator Name Role Phone Sugey Rice MD Primary Care Provider [phone] Reason for Visit * Reason Comments Med Refill Encounter Details Date Type Department Care Team (Late st Contact Info) Description 10/24/2024 Refill [facility] [address] [facility] [place] [address] Leonardo Stovall DO [address] [facility] [place] [address] Social History Tobacco Use Types [...] Visit [facility] [place] [address] Leonardo Stovall DO [address] [facility] [place] [address] documented as of this encounter Visit Diagnoses Not on filedocumented in this encounter Care Teams Hardboard Press Operator Relationship Specialty Start Date End Date Sugey Rice MD [address] [address] PCP - General Family Medicine 09/04/21 documented as of this encounter
--- OUTSIDE RECORDS SUMMARY | 2025-01-10 14:24 | XMS_ITS | Encounter Summary ---
Author Organization [facility] Address [address] [place] [address] Phone Care Team Providers Care Online Media Buyer Name Role Phone Sugey Rice MD Primary Care Provider [phone] Encounter Details Date Type Department Care Team (Late st Contact Info) Description 12/10/2024 Documentation Only [facility] [place], [address] [place] [address] [place]ett [place], [place] [address] [place] [address] Social History Tobacco Use Types [...] Visit [facility] [place] [facility] [place] [address] [place] [address] Leonardo Stovall [address] [facility] [place] [address] documented as of this encounter Visit Diagnoses Not on filedocumented in this encounter Care Teams Online Media Buyer Relationship Specialty Start Date End Date Sugey Rice MD [address] [phone] PCP - General Family Medicine 09/04/21 documented as of this encounter
--- OUTSIDE RECORDS SUMMARY | 2025-01-10 14:24 | XMS_ITS | Encounter Summary ---
Author Organization [facility] Address [address] [place] [address] Phone Care Team Providers Care Television Servicer Name Role Phone Sugey Rice MD Primary Care Provider [phone] Encounter Details Date Type Department Care Team (Late st Contact Info) Description 12/17/2024 Documentation Only [facility] [place], [address] [facility] [place] [address] Lissett [place]acarias[place], [place] 2150 [place] [address] Social History Tobacco Use Types [...] Visit [facility] [place] [facility] [place] [address] [place] [address] [address] [facility] [place] [address] documented as of this encounter Visit Diagnoses Not on filedocumented in this encounter Care Teams Television Servicer Relationship Specialty Start Date End Date Sugey Rice MD [address] [phone] PCP - General Family Medicine 09/04/21 documented as of this encounter
--- OUTSIDE RECORDS SUMMARY | 2025-01-10 14:25 | XMS_ITS | Clinical Summary ---
Author Organization [facility] Address [address] [place] [address] Care Team Providers Care Investment Analyst Name Role Phone Pcp, No MD Primary [...] capsule Take by mouth. 2 Active cartilage-colla nif-wxn-dcqqss 40-5-3.3 mg tablet daily. Active lisinopriL (PRINIVIL) [...] to complete this topic Insurance [facility] MEDICARE PART A & B Care Teams Investment Analyst Relationship Specialty Start Date End Date Gloria Zuñiga MD [address] [place] [address] PCP - General Internal Medicine 07/02/22
--- OUTSIDE RECORDS SUMMARY | 2025-01-10 14:25 | XMS_ITS | Encounter Summary ---
Author Organization [facility] Address [address] [place] [address] Phone Care Team Providers Care Human Services Program Specialist Name Role Phone Sugey Rice MD Primary Care Provider [phone] Encounter Details Date Type Department Care Team (Late Contact Info) Description 07/25/2023 Documentation Only [facility] [place], [address] [facility] [place] [address] Leonardo Stovall DO [address] [facility] [place] [address] Social History Tobacco Use Types [...] Visit [facility] [place] [facility] [place] [address] [place] [address] Leonardo Stovall DO [address] [facility] [place] [address] documented as of this encounter Visit Diagnoses Not on filedocumented in this encounter Care Teams Human Services Program Specialist Relationship Specialty Start Date End Date Sugey Rice MD [address] [phone] PCP - General Family Medicine 09/04/21 documented as of this encounter
--- OUTSIDE RECORDS SUMMARY | 2025-01-10 14:25 | XMS_ITS | Encounter Summary ---
Author Organization [facility] Address [address] [place] [address] Care Team Providers Care Rug Shampooer Name Role Phone Sugey Rice MD Primary Care Provider [phone] Encounter Details Date Type Department Care Team (Late Contact Info) Description 09/23/2024 Scanned Document [facility] [address] [phone] Gurjit Steele MD [address] [place] [address] Social History Tobacco Use Types Packs/Day Years [...] 10:00 AM EDT [facility] [address] [place] [address] Gurjit Steele MD 31 [facility] 100 [place] [address] 06/29/2025 10:30 AM EDT Office Visit [facility]rology [place] [address] [place] [address] Josef Loya MD 80 [place] [address] documented as of this encounter Visit Diagnoses Not on filedocumented in this encounter Care Teams Rug Shampooer Relationship Specialty Start Date End Date Sugey Rice MD [address] [place] [address] 207 [place] [address] PCP - General Family Medicine 05/05/23 documented as of this encounter
--- OUTSIDE RECORDS SUMMARY | 2025-01-10 14:25 | XMS_ITS | Encounter Summary ---
Author Organization [facility] Address [address] [place] [address] Phone Care Team Providers Care Public Relations Manager Name Role Phone Sugey Rice MD Primary Care Provider [phone] Encounter Details Date Type Department Care Team (Late st Contact Info) Description 07/29/2023 Documentation Only [facility] [place], [address] [facility] [place] [address] Lissett [place], [place] 2150 [place] [address] Social History Tobacco Use Types [...] Visit [facility] [place] [facility] [place] [address] [place] [phone] Leonardo Stovall [address] [facility] [place] [address] documented as of this encounter Visit Diagnoses Not on filedocumented in this encounter Care Teams Public Relations Manager Relationship Specialty Start Date End Date Sugey Rice MD [address] [phone] PCP - General Family Medicine 09/04/21 documented as of this encounter
--- OUTSIDE RECORDS SUMMARY | 2025-01-10 14:25 | XMS_ITS | Data Portability ---
Author Organization [facility], Main Office Address [address] [facility] [address] [place] [id number] Care Team Providers Care Skip Miner Blasting Name Role Phone LAURA YUN Per Diem Registered Nurse KELLY KAN Screen Making Supervisor [facility] Theater Projectionist [phone] [facility] (RONY ALONSO) Orthopedic Surgeon GAVI YEPEZ Senior Devops Engineer JOSEPH BOONE Referring Provider [phone] HALEIGH CANTOR Rn Child [phone] NII YATES Primary Care Provider MALIK SHAHID Construction Driver JULIETA LAND District Captain GURJIT STEELE Orthopedic Surgeon KASSIE LAZO Tap Out Operator Assessment Encounter Date Assessment Date Assessment LastModified [...] Not available Not available Not available Lab magnesium , serum or plasma 2023 024 [facility], [address], [address], [place], [address], 10/07/2024 08:09:37 lipid panel, serum 2023 [facility], [address], [address], [place], [address], 10/07/2024 08:09:32 aspartate aminotran sferase/a lanine aminotran sferase, ratio, serum or plasma (OBS) 2023 [facility] (Centralized Electronic Ordering - All Locations), Patient Can Go To The Location Of Their Choice, 10/07/2024 08:09:33 TSH, ultra-sen sitive, serum 2023 [facility] (Centralized [facility] Ordering - All Locations), Patient Can Go To The Location Of Their Choice, 10/07/2024 08:09:36 HbA1c (hemoglob in A1c), blood 2023 [facility], [address], [address], [place], [address], 10/07/2024 08:09:34 vitamin D, 25-hydrox y, total, serum 2023 [facility], [address], [address], [place], [address], 10/07/2024 08:09:35 CBC w/ auto diff 2023 [facility] (Centralized Electronic Ordering - All Locations), Patient Can Go To The Location Of Their Choice, 08/05/2024 08:08:58 respirato ry allergen panel - [facility] states a 2023 [facility] (Centralized Electronic Ordering - All Locations), Patient Can Go To The Location Of Their Choice, 08/09/2024 10:05:57 BNP (B-type natriuret ic peptide), serum or plasma 2023 [facility] (Centralized Electronic Ordering - All Locations), Patient Can Go To The Location Of Their Choice, [id number] 08/09/2024 10:05:55 procalcit onin, serum 2023 [facility] (Centralized Electronic Ordering - All Locations), Patient Can Go To The Location Of Their Choice, [id number] 08/09/2024 10:05:56 Referral sleep medicine referral - New onset of atrial flutter in obese pt. recommend polysomno gram. 2023 [facility], [address] [place] [address] [address], [address], [place], [address], 11/09/2024 11:15:20 Procedures None recorded. Surgeries None recorded. Imaging MAMMO, screening , bilateral - Perform Diagnosti c Mammogram and Breast Ultrasoun d if needed / Perform Ultrasoun d Guided Aspiratio n and/or Breast Biopsy if warranted 2023 [facility], [address], [address], [place], [address], 11/04/2024 11:16:20 electroca rdiogram 2023 024 [email or web address] In-Office Order, Internal Use Only DO Not Attach Compendium DO Not Attach Compendium, Do Not Delete/merge, [id number] 08/25/2024 10:25:17 XR, chest, 2 view 2023 024 [facility] In-Office Order, Internal Use Only DO Not Attach Compendium DO Not Attach Compendium, Do Not Delete/merge, [id number] 08/04/2024 19:53:34 Medication Orders Flonase Sensimist 27.5 mcg/actua tion nasal spray,yakelin pension 2023 024 [id number], [address], [place], [address], 08/03/2024 13:53:59 Saline Mist 0.65 % nasal spray aerosol 2023 024 [id number], [address], [place], [address], 08/03/2024 13:53:58 albuterol sulfate HFA 90 mcg/actua tion aerosol inhaler 2023 024 [id number], [address], [place], [address], 08/03/2024 13:55:03 Patient TargetsNo targets recorded. Patient Instructions Encounter Date Encounter Id Patient Instructions Last Modified By Organization Details Last Modified Time 08/03/2024 [id number] allergies: care instructions [email or web address] Not available 08/03/2024 13:53:54 saline nasal washes: care instructions [email or web address] Not available 08/03/2024 13:53:54 cough: care instructions [email or web address] Not available 08/03/2024 13:48:08 10/05/2024 [id number] advance care planning: care instructions [email or web address] Not available 10/05/2024 10:34:44 preventing falls : care instructions ckokar Not available 10/05/2024 10:34:44 medicare preventive services guide (female 74yrs and under) [email or web address] Not available 10/05/2024 10:34:44 well visit, over 65: care instructions [email or web address] Not available 10/05/2024 10:34:44 11/04/2024 [id number] During [facility] f/u call, all current and discharge medications (OTC, herbal therapies, supplements) reviewed and reconciled with patient, including potential side effects, drug interactions, instructions, and the consequences of not taking medication. Reviewed potential barriers to medication adherence, such as side effects from medication or cost of medication. clayton Not available 11/04/2024 09:14:17 11/09/2024 [id number] hypothyroidism: care instructions [email or web address] Not available 11/09/2024 11:00:23 At [facility] follow up visit, all current and discharge medications (OTC, herbal therapies, supplements) reviewed and reconciled with patient and or caregiver, including potential side effects, drug interactions, instructions, and the consequences of not taking medication. Reviewed potential barriers to medication adherence, such as side effects from medication or cost of medication. Not available 11/09/2024 10:21:09 Reason for Referral [...] 1.019 1.005- 1.030 normal Not Available [facility] ([facility]) [address] [place], [address], 08/05/2024 08:08:57 08/04/2008/05/2024 URINA LYSIS , ROUTI NE pH 6.0 5.0-7. 5 normal Not Available [facility] ([facility]) [address] [place], [address], 08/05/2024 08:08:57 08/04/20 24 08/05/2024 URINA LYSIS , ROUTI NE urine-color Yellow yellow Not Available [facility] ([facility]) [address] [place], [address], 08/05/2024 08:08:57 08/04/2008/05/2024 URINA LYSIS , ROUTI NE appearance Clear clear Not Available [facility] ([facility]) [address] [place], [address], 08/05/2024 08:08:57 08/04/2008/05/2024 URINA LYSIS , ROUTI NE WBC esterase Negati ve negati ve Not Available [facility] ([facility]) [address] [place], [address], 08/05/2024 08:08:57 08/04/20 24 08/05/2024 URINA LYSIS , ROUTI NE protein Negati ve negati ve/tra ce Not Available [facility] ([facility]) [address] [facility], [place], [address], 08/05/2024 08:08:57 08/04/20 24 08/05/2024 URINA LYSIS , ROUTI NE glucose Negati ve negati ve Not Available [facility] ([facility]) [address] [place], [address], 08/05/2024 08:08:57 08/04/20 24 08/05/2024 URINA LYSIS , ROUTI NE ketones Negati ve negati ve Not Available [facility] ([facility]) [address] [place], [address], 08/05/2024 08:08:57 08/04/20 24 08/05/2024 URINA LYSIS , ROUTI NE occult blood Negati ve negati ve Not Available [facility] ([facility]) [address] [facility], [place], [address], 08/05/2024 08:08:57 08/04/20 24 08/05/2024 URINA LYSIS , ROUTI NE bilirubin Negati ve negati ve Not Available [facility] ([facility]) [address] [place], [address], 08/05/2024 08:08:57 08/04/20 24 08/05/2024 URINA LYSIS , ROUTI NE urobilinogen ,semi-qn 0.2 mg/dL 0.2-1. 0 normal Not Available [facility] ([facility]) [address] [place], [address], 08/05/2024 08:08:57 08/04/20 24 08/05/2024 URINA LYSIS , ROUTI NE nitrite, urine Negati ve negati ve Not Available [facility] ([facility]) [address] [place], [address], 08/05/2024 08:08:57 08/04/20 24 08/05/2024 URINA LYSIS , ROUTI NE microscopic examination Commen t Adwoa sherman ws if indic ated. Not Available [facility] ([facility]) [address] [facility], [place], [address], 08/05/2024 08:08:57 08/04/20 24 08/05/2024 CBC WITH DIFFE RENTI AL/PL ATELE T WBC 5.9 x10e3 /uL 3.4-10 .8 normal Not Available [facility] ([facility]) [address] [facility], [place], [address], 08/05/2024 08:08:58 08/04/20 24 08/05/2024 CBC WITH DIFFE RENTI AL/PL ATELE T RBC 4.59 x10e6 /uL 3.77-5 .28 normal Not Available [facility] ([facility]) [address] [facility], [place], [address], 08/05/2024 08:08:58 08/04/20 24 08/05/2024 CBC WITH DIFFE RENTI AL/PL ATELE T hemoglobin 13.9 g/dL 11.1-1 5.9 normal Not Available [facility] ([facility]) [address] [place], [address], 08/05/2024 08:08:58 08/04/20 24 08/05/2024 CBC WITH DIFFE RENTI AL/PL ATELE T hematocrit 43.2 % 34.0-4 6.6 normal Not Available [facility] ([facility]) [address] [place], [address], 08/05/2024 08:08:58 08/04/20 24 08/05/2024 CBC WITH DIFFE RENTI AL/PL ATELE T MCV 94 fL 79-97 normal Not Available [facility] ([facility]) [address] [place], [address], 08/05/2024 08:08:58 08/04/20 24 08/05/2024 CBC WITH DIFFE RENTI AL/PL ATELE T MCH 30.3 pg 26.6-3 3.0 normal Not Available [facility] ([facility]) [address] [facility], [place], [address], 08/05/2024 08:08:58 08/04/20 24 08/05/2024 CBC WITH DIFFE RENTI AL/PL ATELE T MCHC 32.2 g/dL 31.5-3 5.7 normal Not Available [facility] ([facility]) [address] [facility], [place], [address], 08/05/2024 08:08:58 08/04/20 24 08/05/2024 CBC WITH DIFFE RENTI AL/PL ATELE T RDW 11.7 % 11.7-1 5.4 Not Available [facility] ([facility]) [address] [facility], [place], [address], 08/05/2024 08:08:58 08/04/20 24 08/05/2024 CBC WITH DIFFE RENTI AL/PL ATELE T platelets 182 x10e3 /uL 150-45 0 normal Not Available [facility] ([facility]) [address] [facility], [place], [address], 08/05/2024 08:08:58 08/04/20 24 08/05/2024 CBC WITH DIFFE RENTI AL/PL ATELE T neutrophils 64 % not estab. normal Not Available [facility] ([facility]) [address] [facility], [place], [address], 08/05/2024 08:08:58 08/04/20 24 08/05/2024 CBC WITH DIFFE RENTI AL/PL ATELE T lymphs 25 % not estab. normal Not Available [facility] ([facility]) [address] [place], [address], 08/05/2024 08:08:58 09/18/20 24 08/05/2024 CBC WITH DIFFE RENTI AL/PL ATELE T monocytes 7 % not estab. normal Not Available [facility] ([facility]) [address] [facility], [place], [address], 08/05/2024 08:08:58 08/04/20 24 08/05/2024 CBC WITH DIFFE RENTI AL/PL ATELE T eos 3 % not estab. normal Not Available [facility] ([facility]) [address] [facility], [place], [address], 08/05/2024 08:08:58 08/04/20 24 08/05/2024 CBC WITH DIFFE RENTI AL/PL ATELE T basos 1 % not estab. normal Not Available [facility] ([facility]) [address] [facility], [place], [address], 08/05/2024 08:08:58 08/04/20 24 08/05/2024 CBC WITH DIFFE RENTI AL/PL ATELE T immature cells MANAGER GRAPHIC Not Available [facility] ([facility]) [address] [place], [address], 08/05/2024 08:08:58 08/04/20 24 08/05/2024 CBC WITH DIFFE RENTI AL/PL ATELE T neutrophils (absolute) 3.8 x10e3 /uL 1.4-7. 0 normal Not Available [facility] ([facility]) [address] [facility], [place], [address], 08/05/2024 08:08:58 08/04/20 24 08/05/2024 CBC WITH DIFFE RENTI AL/PL ATELE T lymphs (absolute) 1.5 x10e3 /uL 0.7-3. 1 normal Not Available [facility] ([facility]) [address] [place], [address], 08/05/2024 08:08:58 08/04/20 24 08/05/2024 CBC WITH DIFFE RENTI AL/PL ATELE T monocytes(ab solute) 0.4 x10e3 /uL 0.1-0. 9 normal Not Available [facility] ([facility]) [address] [facility], [place], [address], 08/05/2024 08:08:58 08/04/20 24 08/05/2024 CBC WITH DIFFE RENTI AL/PL ATELE T eos (absolute) 0.2 x10e3 /uL 0.0-0. 4 normal Not Available [facility] ([facility]) [address] [facility], [place], [address], 08/05/2024 08:08:58 08/04/20 24 08/05/2024 CBC WITH DIFFE RENTI AL/PL ATELE T baso (absolute) 0.1 x10e3 /uL 0.0-0. 2 normal Not Available [facility] ([facility]) [address] [facility], [place], [address], 08/05/2024 08:08:58 08/04/20 24 08/05/2024 CBC WITH DIFFE RENTI AL/PL ATELE T immature granulocytes 0 % not estab. Not Available [facility] ([facility]) [address] [facility], [place], [address], 08/05/2024 08:08:58 08/04/20 24 08/05/2024 CBC WITH DIFFE RENTI AL/PL ATELE T immature grans (abs) 0.0 x10e3 /uL 0.0-0. 1 Not Available [facility] ([facility]) [address] [place], [address], 08/05/2024 08:08:58 08/04/20 24 08/05/2024 CBC WITH DIFFE RENTI AL/PL ATELE T NRBC MANAGER GRAPHIC Not Available [facility] ([facility]) [address] [place], [address], 08/05/2024 08:08:58 09/18/20 24 08/05/2024 CBC WITH DIFFE RENTI AL/PL ATELE T hematology comments: MANAGER GRAPHIC Not Available [facility] ([facility]) [address] [facility], [place], [address], 08/05/2024 08:08:58 08/04/20 24 08/05/2024 URINA LYSIS , COMPL ETE microscopic examination See below: Micro scopi c was indic ated and was perfo rmed. Not Available [facility] ([facility]) [address] [facility], [place], [address], 08/05/2024 08:08:59 08/04/20 24 08/05/2024 URINA LYSIS , COMPL ETE WBC 0-5 /hpf 0 - 5 Not Available [facility] ([facility]) [address] [facility], [place], [address], 08/05/2024 08:08:59 08/04/20 24 08/05/2024 URINA LYSIS , COMPL ETE RBC 0-2 /hpf 0 - 2 Not Available [facility] ([facility]) [address] [facility], [place], [address], 08/05/2024 08:08:59 08/04/20 24 08/05/2024 URINA LYSIS , COMPL ETE epithelial cells (non renal) None seen /hpf 0 - 10 Not Available [facility] ([facility]) [address] [facility], [place], [address], 08/05/2024 08:08:59 08/04/20 24 08/05/2024 URINA LYSIS , COMPL ETE epithelial cells (renal) MANAGER GRAPHIC Not Available [facility] ([facility]) [address] [facility], [place], [address], 08/05/2024 08:08:59 08/04/20 24 08/05/2024 URINA LYSIS , COMPL ETE casts None seen /lpf none seen Not Available [facility] ([facility]) [address] [facility], [place], [address], 08/05/2024 08:08:59 08/04/20 24 08/05/2024 URINA LYSIS , COMPL ETE cast type MANAGER GRAPHIC Not Available [facility] ([facility]) [address] [facility], [place], [address], 08/05/2024 08:08:59 08/04/20 24 08/05/2024 URINA LYSIS , COMPL ETE crystals MANAGER GRAPHIC Not Available [facility] ([facility]) [address] [facility], [place], [address], 08/05/2024 08:08:59 08/04/20 24 08/05/2024 URINA LYSIS , COMPL ETE crystal type MANAGER GRAPHIC Not Available [facility] [address] [facility], [place], [address], 08/05/2024 08:08:59 08/04/20 24 08/05/2024 URINA LYSIS , COMPL ETE mucus threads MANAGER GRAPHIC Not Available [facility] ([facility]) [address] [facility], [place], [address], 08/05/2024 08:08:59 08/04/20 24 08/05/2024 URINA LYSIS , COMPL ETE bacteria Few none seen/f ew Not Available [facility] ([facility]) [address] [facility], [place], [address], 08/05/2024 08:08:59 08/04/20 24 08/05/2024 URINA LYSIS , COMPL ETE yeast MANAGER GRAPHIC Not Available [facility] ([facility]) [address] [facility], [place], [address], 08/05/2024 08:08:59 08/04/20 24 08/05/2024 URINA LYSIS , COMPL ETE trichomonas MANAGER GRAPHIC Not Available [facility]) [address] [facility], [place], [address], 08/05/2024 08:08:59 08/04/20 24 08/05/2024 URINA LYSIS , COMPL ETE comment MANAGER GRAPHIC Not Available [facility] ([facility]) [address] [facility] [place], [address], 08/05/2024 08:08:59 08/04/20 24 08/05/2024 UA WITH CULTU RE REFLE X urinalysis reflex Commen t This speci men will not refle x to a Urine Cultu re. Not Available [facility] ([facility]) [address] [facility] [place], [address], 08/05/2024 08:08:59 08/04/20 24 08/05/2024 BASIC METAB OLIC PANEL (8) glucose 129 mg/dL 70-99 above high normal Not Available [facility] ([facility]) [address] [place], [address], 08/05/2024 08:09:00 08/04/20 24 08/05/2024 BASIC METAB OLIC PANEL (8) BUN 29 mg/dL 8-27 above high normal Not Available [facility] ([facility]) [address] [place], [address], 08/05/2024 08:09:00 08/04/20 24 08/05/2024 BASIC METAB OLIC PANEL (8) creatinine 1.59 mg/dL 0.57-1 .00 above high normal Not Available [facility] ([facility]) [address] [place], [address], 08/05/2024 08:09:00 08/04/20 24 08/05/2024 BASIC METAB OLIC PANEL (8) eGFR 35 mL/mi n/1.7 3 >59 below low normal Not Available [facility] ([facility]) [address] [place], [address], 08/05/2024 08:09:00 08/04/20 24 08/05/2024 BASIC METAB OLIC PANEL (8) BUN/creatini ne ratio 18 12-28 normal Not Available [facility] ([facility]) [address] [facility] [place], [address], 08/05/2024 08:09:00 08/04/20 24 08/05/2024 BASIC METAB OLIC PANEL (8) sodium 140 mmol/ L 134-14 4 normal Not Available [facility] ([facility]) [address] [facility] [place], [address], 08/05/2024 08:09:00 08/04/2008/05/2024 BASIC METAB OLIC PANEL (8) potassium 4.8 mmol/ L 3.5-5. 2 normal Not Available [facility] ([facility]) [address] [facility] [place], [address], 08/05/2024 08:09:00 08/04/20 24 08/05/2024 BASIC METAB OLIC PANEL (8) chloride 103 mmol/ L 96-106 normal Not Available [facility] ([facility]) [address] [place], [address], 08/05/2024 08:09:00 08/04/20 24 08/05/2024 BASIC METAB OLIC PANEL (8) carbon dioxide, total 21 mmol/ L 20-29 normal Not Available [facility] ([facility]) [address] [place], [address], 08/05/2024 08:09:00 08/04/20 24 08/05/2024 BASIC METAB OLIC PANEL (8) calcium 9.3 mg/dL 8.7-10 .3 normal Not Available [facility] ([facility]) [address] [place], [address], 08/05/2024 08:09:00 08/04/20 24 08/05/2024 B-TYP E NATRI URETI C PEPTI DE B-type natriuretic peptide 43.1 pg/mL 0.0-10 0.0 Sieme ns ADVIA Cent[facility] XP metho dolog y Not Available [facility] ([facility]) [address] [facility], [place], [address], 08/09/2024 10:05:55 08/04/20 24 08/06/2024 PROCA LCITO [...] ng/mL are obtai neela. Not Available [facility] ([facility]) [address] [facility], [place], [address], 08/09/2024 10:05:56 08/04/20 24 08/04/2024 ALLER GENS [...] >100. 00 Very High Not Available [facility] ([facility]) [address] [place], [address], 08/09/2024 10:05:57 08/04/20 24 08/07/2024 ALLER GENS W/TOT AL IGE AREA 1 immunoglobul in E, total 24 IU/mL 6-495 Not Available [facility]) [address] [place], [address], 08/09/2024 10:05:57 08/04/20 24 08/07/2024 ALLER GENS W/TOT AL IGE AREA 1 Q507-QdT D pteronyssinu s <0.10 kU/L class 0 Not Available [facility] ([facility]) [address] [place], [address], 08/09/2024 10:05:57 08/04/20 24 08/07/2024 ALLER GENS W/TOT AL IGE AREA 1 P869-YvZ D farinae <0.10 kU/L class 0 Not Available [facility] ([facility]) [address] [place], [address], 08/09/2024 10:05:57 08/04/20 24 08/07/2024 ALLER GENS W/TOT AL IGE AREA 1 A354-AiZ CAT dander <0.10 kU/L class 0 Not Available [facility] ([facility]) [address] [place], [address], 08/09/2024 10:05:57 08/04/20 24 08/07/2024 ALLER GENS W/TOT AL IGE AREA 1 E362-BoK dog dander <0.10 kU/L class 0 Not Available [facility] ([facility]) [address] [facility], [place], [address], 08/09/2024 10:05:57 08/04/20 24 08/07/2024 ALLER GENS W/TOT AL IGE AREA 1 s004-LxF bermuda grass <0.10 kU/L class 0 Not Available [facility] ([facility]) [address] [facility], [place], [address], 08/09/2024 10:05:57 08/04/20 24 08/07/2024 ALLER GENS W/TOT AL IGE AREA 1 d407-WsK pat grass <0.10 kU/L class 0 Not Available [facility] ([facility]) [address] [facility], [place], [address], 08/09/2024 10:05:57 08/04/20 24 08/07/2024 ALLER GENS W/TOT AL IGE AREA 1 R333-JdS cockroach, maltese <0.10 kU/L class 0 Not Available [facility] ([facility]) [address] [place], [address], 08/09/2024 10:05:57 08/04/20 24 08/07/2024 ALLER GENS W/TOT AL IGE AREA 1 W664-YbU penicillium chrysogen <0.10 kU/L class 0 Not Available [facility] ([facility]) [address] [place], [address], 08/09/2024 10:05:57 08/04/20 24 08/07/2024 ALLER GENS W/TOT AL IGE AREA 1 R987-DbE cladosporium herbarum <0.10 kU/L class 0 Not Available [facility] ([facility]) [address] [place], [address], 08/09/2024 10:05:57 08/04/20 24 08/07/2024 ALLER GENS W/TOT AL IGE AREA 1 X232-XeV aspergillus fumigatus <0.10 kU/L class 0 Not Available [facility] ([place] [facility]) [address] [facility], [place], [address], 08/09/2024 10:05:57 08/04/20 24 08/07/2024 ALLER GENS W/TOT AL IGE AREA 1 D544-WsD alternaria alternata <0.10 kU/L class 0 Not Available [facility] ([place] [facility]) [address] [facility], [place], [address], 08/09/2024 10:05:57 08/04/20 24 08/07/2024 ALLER GENS W/TOT AL IGE AREA 1 F735-OrD maple/box elder <0.10 kU/L class 0 Not Available [facility] ([facility]) [address] [facility], [place], [address], 08/09/2024 10:05:57 08/04/20 24 08/07/2024 ALLER GENS W/TOT AL IGE AREA 1 A359-FpR common silver birch <0.10 kU/L class 0 Not Available [facility] ([facility]) [address] [facility], [place], [address], 08/09/2024 10:05:57 08/04/20 24 08/07/2024 ALLER GENS W/TOT AL IGE AREA 1 I060-BtT cedar, mountain <0.10 kU/L class 0 Not Available [facility] ([facility]) [address] [facility], [place], [address], 08/09/2024 10:05:57 08/04/20 24 08/07/2024 ALLER GENS W/TOT AL IGE AREA 1 R584-ZwZ oak, white <0.10 kU/L class 0 Not Available [facility] ([facility]) [address] [facility], [place], [address], 08/09/2024 10:05:57 08/04/20 24 08/07/2024 ALLER GENS W/TOT AL IGE AREA 1 A657-YnJ elm, azerbaijani <0.10 kU/L class 0 Not Available [facility] ([facility]) [address], [place], [address], 08/09/2024 10:05:57 08/04/20 24 08/07/2024 ALLER GENS W/TOT AL IGE AREA 1 L334-KaL walnut <0.10 kU/L class 0 Not Available [facility] ([facility]) [address], [place], [address], 08/09/2024 10:05:57 08/04/20 24 08/07/2024 ALLER GENS W/TOT AL IGE AREA 1 D960-CgR maple leaf sycamore <0.10 kU/L class 0 Not Available [facility] ([facility]) [address], [place], [address], 08/09/2024 10:05:57 08/04/20 24 08/07/2024 ALLER GENS W/TOT AL IGE AREA 1 P814-LvR cottonwood <0.10 kU/L class 0 Not Available [facility] ([facility]) [address], [place], [address], 08/09/2024 10:05:57 08/04/20 24 08/07/2024 ALLER GENS W/TOT AL IGE AREA 1 S547-NeU jazlyn, white <0.10 kU/L class 0 Not Available [facility] ([facility]) [address], [place], [address], 08/09/2024 10:05:57 08/04/20 24 08/07/2024 ALLER GENS W/TOT AL IGE AREA 1 A157-DzA white mulberry <0.10 kU/L class 0 Not Available [facility] ([facility]) [address], [place], [address], 08/09/2024 10:05:57 08/04/20 24 08/07/2024 ALLER GENS W/TOT AL IGE AREA 1 Q326-ZoD ragweed, short <0.10 kU/L class 0 Not Available [facility] ([facility]) [address] [facility], [place], [address], 08/09/2024 10:05:57 08/04/20 24 08/07/2024 ALLER GENS W/TOT AL IGE AREA 1 C474-KtY mugwort <0.10 kU/L class 0 Not Available [facility] ([facility]) [address] [facility], [place], [address], 08/09/2024 10:05:57 08/04/20 24 08/07/2024 ALLER GENS W/TOT AL IGE AREA 1 [id number] pigweed, common <0.10 kU/L class 0 Not Available [facility] ([facility]) [address] [facility], [place], [address], 08/09/2024 10:05:57 08/04/20 24 08/07/2024 ALLER GENS W/TOT AL IGE AREA 1 W780-WkG sheep sorrel <0.10 kU/L class 0 Not Available [facility] ([facility]) [address] [facility], [place], [address], 08/09/2024 10:05:57 08/04/20 24 08/07/2024 ALLER GENS W/TOT AL IGE AREA 1 [id number] mouse urine <0.10 kU/L class 0 Not Available [facility] ([facility]) [address] [facility], [place], [address], 08/09/2024 10:05:57 10/06/20 24 10/06/2024 LIPID PANEL cholesterol, total 183 mg/dL 100-19 9 normal Not Available [facility] ([facility]) [address] [facility], [place], [address], 10/07/2024 08:09:32 10/06/20 24 10/06/2024 LIPID PANEL triglyceride s 119 mg/dL 0-149 normal Not Available [facility] ([facility]) [address] [facility] [place] [place], [address], 10/07/2024 08:09:32 10/06/20 24 10/06/2024 LIPID PANEL HDL cholesterol 44 mg/dL >39 normal Not Available [facility] ([facility]) [address] [facility] [place], [address], 10/07/2024 08:09:32 10/06/20 24 10/06/2024 LIPID PANEL VLDL cholesterol roxane 21 mg/dL 5-40 Not Available [facility] ([facility]) [address] [place], [address], 10/07/2024 08:09:32 10/06/20 24 10/06/2024 LIPID PANEL LDL chol calc ([facility]) 118 mg/dL 0-99 above high normal Not Available [facility] ([facility]) [address] [place], [address], 10/07/2024 08:09:32 10/06/20 24 10/06/2024 LIPID PANEL LDL calc comment: MANAGER GRAPHIC Not Available [facility] ([facility]) [address] [place], [address], 10/07/2024 08:09:32 10/06/20 24 10/06/2024 ALT+A ST AST (SGOT) 13 IU/L 0-40 normal Not Available [facility] ([facility]) [address] [place], [address], 10/07/2024 08:09:33 10/06/20 24 10/06/2024 ALT+A ST ALT (SGPT) 12 IU/L 0-32 normal Not Available [facility] ([facility]) [address] [place], [address], 10/07/2024 08:09:33 10/06/20 24 10/06/2024 HEMOG LOBIN A1C hemoglobin A1C 5.9 % 4.8-5. 6 above high normal Predi abete s: 5.7 - 6.4 Diabe angela: >6.4 Glyce peña contr ol for adult s with diabe angela: <7.0 Not Available [facility] ([facility]) [address] [facility], [place], [address], 10/07/2024 08:09:34 10/06/20 24 10/07/2024 VITAM IN [...] Medic ine). 2009. Dieta ry refer ence randy es for calci um and D. Samantha chao DC: The [facility] Press . 2. Ashley garcia MF, Meg ey [place], Echo off-F errar i ANGEL, et al. Evalu ation , treat ment, and preve ntion of vitam in D defic iency : an Endoc rine Socie ty clini roxane pract ice guide line. JCEM. 2010; 96(7) :1911 -30. Not Available [facility] ([facility]) [address] [facility], [place], [address], 10/07/2024 08:09:35 10/06/20 24 10/07/2024 TSH RFX ON ABNOR MAL TO FREE T4 TSH 2.080 uIU/m L 0.450- 4.500 normal Not Available [facility] ([facility]) [address] [facility], [place], [address], 10/07/2024 08:09:35 10/06/20 24 10/07/2024 MAGNE SIUM magnesium 2.1 mg/dL 1.6-2. 3 normal Not Available [facility] ([facility]) [address] [place], [address], 10/07/2024 08:09:36 12/05/19 25 12/06/2024 LIPID PANEL cholesterol, total 140 mg/dL 100-19 9 normal Not Available [facility] ([facility]) [address] [place], [address], 12/07/2024 06:07:13 12/05/19 25 12/06/2024 LIPID PANEL triglyceride s 81 mg/dL 0-149 normal Not Available [facility] ([facility]) [address] [place], [address], 12/07/2024 06:07:13 12/05/19 25 12/06/2024 LIPID PANEL HDL cholesterol 48 mg/dL >39 normal Not Available [facility] ([facility]) [address] [place], [address], 12/07/2024 06:07:13 12/05/19 25 12/06/2024 LIPID PANEL VLDL cholesterol roxane 16 mg/dL 5-40 Not Available [facility] ([facility]) [address] [place], [address], 12/07/2024 06:07:13 12/05/19 25 12/06/2024 LIPID PANEL LDL chol calc ([facility]) 76 mg/dL 0-99 Not Available [facility] ([facility]) [address] [place], [address], 12/07/2024 06:07:13 12/05/19 25 12/06/2024 LIPID PANEL LDL calc comment: MANAGER GRAPHIC Not Available [facility] ([facility]) [address] [place], [address], 12/07/2024 06:07:13 12/05/1912/06/2024 ALT+A ST AST (SGOT) 13 IU/L 0-40 normal Not Available [facility] ([facility] [facility]) [address], [place], [address], 12/07/2024 06:07:14 12/05/19 25 12/06/2024 ALT+A ST ALT (SGPT) 12 IU/L 0-32 normal Not Available [facility] ([facility]) [address], [place], [address], 12/07/2024 06:07:14 08/04/20 24 08/04/2024 XR, chest [...] No active diseas e in chest. WSN: [id number] Orderi ng Physic efren: Shruti Yates Dictat ed By: Baron Batista MD Dictat ed Date/T kim: 7:50 pm Review ed By: Baron Batista MD Signed By: Baron Batista MD Signed Date/T kim: 7:50 pm Transc ribed By: LIZBETH Transc ribed Date/T kim: 7:50 pm Patien t Class: Outpat ient [facility] (Outpt Imaging) [address] , [place], [address], 08/06/2024 09:44:09 08/04/20 24 08/04/2024 XR, chest , 2 view No observ ation record ed. [email or web address] In-Office Order Internal Use Only DO Not Attach Compendium DO Not Attach Compendium, Do Not Delete/merge, [id number] 08/06/2024 12:25:00 08/11/20 24 08/04/2024 compl [facility] * No observ ation record ed. [email or web address] [facility] [address] [place], [address], 08/11/2024 15:38:49 08/11/20 24 08/04/2024 compl ete [facility] w[facility] * No observ ation record ed. [address] [facility] [address] [place], [address], 08/19/2024 09:53:29 08/25/20 24 08/25/2024 elect rocar diogr am No observ ation record ed. [email or web address] In-Office Order Internal Use Only DO Not Attach Compendium DO Not Attach Compendium, Do Not Delete/merge, [id number] 08/25/2024 11:33:52 08/25/20 elect rocar diogr am No observ ation record ed. [email or web address] In-Office Order Internal Use Only DO Not Attach Compendium DO Not Attach Compendium, Do Not Delete/merge, [id number] 08/25/2024 10:11:44 08/25/20 24 08/24/2024 CT, chest [...] COMPAR JOSE M: Chest radiog raph dated 2023. The FINDIN GS: Veneer Layer view findin gs, lines and tubes: None. [...] risk factor s for primar y pulmon eranna malign sofie, one year follow -up chest CT is consid ered option al accord ing to curren t Fleisc hner guidel argelia. 3. Mild spleno megaly . WSN: [id number] Orderi ng Physic efren: Shruti Yates Dictat ed By: Benny Esparza MD Dictat ed Date/T kim: 4:57 pm Review ed By: Benny Esparza MD Signed By: Benny Esparza MD Signed Date/T kim: 4:57 pm Transc ribed By: LIZBETH Transc ribed Date/T kim: 4:47 pm Patien t Class: Outpat ient JOSHUA [facility] (Outpt Imaging) [address], [place], [address], 08/25/2024 17:40:54 08/25/20 24 08/25/2024 CT, chest , w/ contr ast No observ ation record ed. [email or web address] [facility] (Ct Scan) [address], [place], [address], 08/26/2024 13:39:24 10/05/20 24 11/03/2023 MAMMO , florencee radha, digit al, bilat eral No observ ation record ed. Not Available 10/06 09:04:27 10/20/20 24 10/19/2024 XR, chest No observ ation record ed. [facility] (Medical Records) [address] [place], [address], 10/20/2024 10:36:09 10/28/20 24 10/28/2024 XR, chest No observ ation record ed. [facility] (Medical Records) [address] [place], [address], 10/28/2024 20:48:42 10/29/20 24 10/28/2024 XR, chest No observ ation record ed. [facility] (Medical Records) [address] [place], [address], 10/29/2024 13:01:51 10/29/20 24 10/29/2024 CT, angio gram, chest , w/ contr ast No observ ation record ed. [facility] (Medical Records) [address] [place], [address], 10/29/2024 17:02:39 11/04/20 24 11/04/2024 MAMMO , [...] recomm ended. We will recall the michael gray. RECOMM ENDATI ON: Diagno stic 3D tomosy nthesi s of the left breast with schedu led ultras ound BI-RAD S: 0 Incomp lete - Need Additi onal Imagin g Evalua tion. Lay letter mailed to michael gray WSN: [id number] Orderi ng Physic efren: Shruti Yates Dictat ed By: Olga Lidia Rodriguez MD Dictat ed Date/T kim: 11:10 am Review ed By: Olga Lidia Rodriguez MD Signed By: Olga Lidia Rodriguez MD Signed Date/T kim: 11:10 am Transc ribed By: LIZBETH Transc riptio n Date/T kim: 10:59 am Birads : Michael gray Class: Outpat ient [email or web address] [facility] (Outpt Imaging) [address] , [place], [address], 11/05/2024 09:17:42 11/04/20 24 11/04/2024 MAMMO , scree radha, bilat eral No observ ation record ed. [email or web address] [address], [place], [address], 11/04/2024 13:08:40 11/16/20 24 11/16/2024 mm digit [...] Lay letter mailed to michael gray WSN: [id number] Orderi ng Physic efren: Shruti Yates Dictat ed By: Kelle Kim MD Dictat ed Date/T kim: 11:24 am Review ed By: Kelle Kim MD Signed By: eKlle Kim MD Signed Date/T kim: 11:24 am Transc ribed By: CSB Transc riptio n Date/T kim: 11:23 am Birads : Michael t Class: Outpat ient [facility] (Outpt Imaging) [address], [place], [address], 11/16/2024 18:25:23 11/16/20 24 11/16/2024 MAMMO , scree radha, digit al, unila teral No observ ation record ed. [email or web address] [facility] [address] [facility], [place], [address], 11/16/2024 11:37:42 12/06/19 25 12/02/2024 NM, myoca rdial perfu francisco scan No observ ation record ed. [facility] (Medical Records) [address] [place], [address], 12/07/2024 06:21:05 Result Notes None recorded. Problems Name Problem SNOMED Code Status Onset Date Resolution Date Notes Provider Name and Address Organization Details Recorded Time Rosacea 998049465 PATSY Otto [facility] 3 10:55:09 Gastroeso phageal reflux disease 137860928 Active PATSY Coon [facility] 3 10:55:09 Hypothyro idism 33769128 Active PATSY Coon [facility] 3 10:55:09 Labile hypertens ion due to being in a clinical environme nt 634635896 Active PATSY Coon [facility] 3 10:55:09 Hyperlipi demia 30659558 Active PATSY Coon [facility] 3 10:55:09 Fatigue 29990188 Completed 10/04/2023 Nii Yates MD [address] [facility] [address], [place], [address] [facility] 3 09:05:45 Vitamin D deficienc y 11265375 PATSY Otto [place] - [facility] [place] 3 10:55:09 Fracture of phalanx of foot 10209633 Completed 11/19/2018 Genet moulton null, [facility] 9 14:39:03 Tubular adenoma 783791870 Active 2019 Dorenemichael Sorensen [place] null, [facility] 3 10:55:09 Serum creatinin e above reference range 670818658 Completed 201910/04/2023 Nii Yates MD [address] [address], [place], [address], [facility] 3 09:06:18 Hypertens anson renal disease 86075228 Active 2020 PATSY Coon, [facility] 3 10:55:09 Chronic kidney disease stage 3A 871748312 Active 2021 Dorene Sorensen [place] null, [facility] 3 10:55:09 Kidney stone 17936689 Completed 202210/05/2024 Nii Yates MD [address] [facility] [address], [place], [address], [facility] 4 10:32:59 COVID-19 542784033 Completed 202210/04/2023 Nii Yates MD [address] [address], [place], [address], [facility] 3 09:05:39 Laryngiti s 57870097 Completed 202210/04/2023 Nii Yates MD [address] [facility] [address], [place], [address], [facility] 3 09:06:07 History of SARS-CoV- 2 944358810306 781981 Active 2022 Nii Yates MD [address] [facility] [address], [place], [address], [facility] 3 09:05:33 Morbid obesity 333982592 Active 2022 Nii Yates MD [address], [place], [address], [facility] 3 09:22:38 Uric acid renal calculus 783241826 Active 2023 Nii Yates MD [address], [place], [address], [facility] 4 10:32:16 History of urinary stone 048733426 Active 2023 Nii Yates MD [address], [place], [address], [facility] 4 10:32:56 Prediabet es 959446770 Active 2023 Nii Yates MD [address], [place], [address], [facility] 4 09:53:05 Restricti ve lung disease 67960114 Active 2023 Nii Yates MD [address] [facility] [address], [place], [address], [facility] 4 07:24:24 Moderate persisten t asthma 605792513 Active 2023 Nii Yates MD [address], [place], [address], [facility] 4 07:24:37 Nodule of lung 741399074 Active 2023 Nii Yates MD [address], [place], [address], [facility] 4 07:25:47 Atrial flutter 3463439 Active 2023 Janel Sandoval PA-C [address], [place], [address], [facility] 4 10:39:19 Asthma 454965627 Active 2024 Nii Yates MD [address] [facility] [address], [place], [address], [facility] 5 09:11:37 Pulmonary hypertens ion 89354423 Active 2024 Nii Yates MD [address] [facility] [address], [place], [address], [facility] 5 09:11:46 Notes:Some problems listed i n Document: #[id number] could not be added to this patient's chart. Please review this document and add these problems to the patient's chart manually as needed. Problem Notes None recorded. Procedures Surgical History Date Name Laterality Status Provider Name and Address Organization Details Recorded Time 11/16/20 24 mammography of left breast completed Bronwyn starks MA [facility] 11/16/2024 11:38:32 11/04/20 24 Most Recent Mammogram completed [facility] 11/04/2024 13:06:14 11/04/20 24 Mammogram Screening completed [facility] 11/04/2024 13:05:29 10/05/20 24 Advanced Care Planning completed Nica Gray [facility] 10/18/2024 10:50:18 09/23/20 24 arthroplasty of the carpometacarpal joint of the thumb completed Bronwyn starks MA [facility] 10/05/2024 10:14:05 03/29/20 24 ureterorenoscopy with fragmentation and removal of calculus of kidney completed Bronwyn starks MA [facility] 05/24/2024 10:39:56 10/04/20 23 Advanced Care Planning completed Nii Yates MD [address] [address], [place], [address], [facility] 10/04/2023 08:28:24 12/19/19 23 Date of Last Pap Smear completed Annalee Starren [facility] 10/06/2023 16:01:08 08/28/20 22 Advanced Care Planning completed Nica Montanavedo [facility] 08/29/2022 14:14:04 08/10/20 21 Advanced Care Planning completed Nii Yates MD [address], [place], [address], [facility] 08/10/2021 08:21:36 10/30/20 20 Most Recent Bone Density completed Bronwyn starks MA [facility] 08/28/2022 13:15:10 10/30/20 20 Dxa bone density study completed Bronwyn starks [facility] 08/28/2022 13:15:16 08/07/20 20 Six-Item Cognitive Test completed Bronwyn starks MA [facility] 08/07/2020 13:27:37 07/04/20 20 Date of Last Colonoscopy completed Amelia Arzate [facility] 07/05/2020 10:04:05 07/04/20 20 Colonoscopy completed Bronwyn starks MA [facility] 08/07/2020 13:22:40 11/27/19 19 repair of umbilical hernia completed Naima Yee [facility] 01/18/2019 13:05:42 06/17/20 18 procedure on tongue completed Jason Guevara MD [address], [place], [address], [facility] 01/18/2019 13:47:45 05/18/20 14 excision of mucous cyst of finger completed Bronwyn starks MA [facility] 08/10/2021 09:57:19 04/07/20 12 arthroscopic shoulder decompression completed Bronwyn starks MA [facility] 08/28/2022 13:13:52 11/17/18 98 Endometrial Ablation completed Bronwyn starks MA [facility] 08/28/2022 13:03:27 03/21/19 92 delivery completed Bronwyn starks MA [facility] 08/28/2022 13:14:33 01/12/19 85 delivery completed Bronwyn starks MA [facility] 08/28/2022 13:14:29 10/07/19 81 delivery completed Bronwyn starks MA [facility] 08/28/2022 13:14:44 Lig div&strpg short saph vn completed Kristie Dsouza [facility] 10/02/2021 11:19:55 Anesth shoulder procedure completed Kristie Dsouza [facility] 10/02/2021 11:19:55 Imaging Results Imaging Date Name Status LastModified by Organization Details LastModified Time 08/04/2024 XR, chest, 2 view completed [facility] (Outpt Imaging) [address] [place], [address], 08/06/2024 09:44:09 08/04/2024 XR, chest, 2 view completed [email or web address] In-Offi ce Order Internal Use Only DO Not Attach Compendium DO Not Attach Compendium, Do Not Delete/merge, [id number] 08/06/2024 12:25:00 08/04/2024 complete PFT w/ post bronchodilator spirometry* completed [address] [facility] [address] [place], [address], 08/11/2024 15:38:49 08/04/2024 complete PFT w/ post bronchodilator spirometry* completed [address] [facility] [address] [place], [address], 08/19/2024 09:53:29 08/25/2024 electrocardiogram completed [email or web address] In-Offi ce Order Internal Use Only DO Not Attach Compendium DO Not Attach Compendium, Do Not Delete/merge, [id number] 08/25/2024 11:33:52 08/25/2024 electrocardiogram completed [email or web address] In-Offi ce Order Internal Use Only DO Not Attach Compendium DO Not Attach Compendium, Do Not Delete/merge, [id number] 08/25/2024 10:11:44 08/24/2024 CT, chest, w/ contrast completed [facility] (Outpt Imaging) [address] [place], [address], 08/25/2024 17:40:54 08/25/2024 CT, chest, w/ contrast completed [address] (Ct Scan) [address] [place], [address], 08/26/2024 13:39:24 11/03/2023 MAMMO, screening, digital, bilateral completed [email or web address] Information not available 10/06/2024 09:04:27 10/19/2024 XR, chest completed [facility] (Medical Records) [address] [place], [address], 10/20/2024 10:36:09 10/28/2024 XR, chest completed [facility] (Medical Records) [address] [place], [address], 10/28/2024 20:48:42 10/28/2024 XR, chest completed [facility] (Medical Records) [address] [place], [address], 10/29/2024 13:01:51 10/29/2024 CT, angiogram, chest, w/ contrast completed [facility] (Medical Records) [address] [place], [address], 10/29/2024 17:02:39 11/04/2024 MAMMO, screening, digital, bilateral completed [email or web address] [facility] (Outpt Imaging) [address] [place], [address], 11/05/2024 09:17:42 11/04/2024 MAMMO, screening, bilateral completed [email or web address] [facility] [address], [place], [address], 11/04/2024 13:08:40 11/16/2024 mm digital mammo unilat left completed [facility] (Outpt Imaging) [address] [place], [address], 11/16/2024 18:25:23 11/16/2024 MAMMO, screening, digital, unilateral [facility] [address] [place], [address], 11/16/2024 11:37:42 12/02/2024 NM, myocardial perfusion scan completed [facility] (Medical Records) [address] [place], [address], 12/07/2024 06:21:05 Procedure Notes None recorded. Medical Equipment None Reported. Allergies Allergen ID Allergen Name Allergen Category Reaction Reaction Severity Criticality Documentation Date Start Date Code Code System Note Provider Name and Address Organization Details Recorded Time 99006 amoxicill in medicatio n Not available Not available Not available 09/26/20162020 723 RxNorm Delmisbrynn foote [facility] 10:49:15 79577 latex environme nt,medica tion other Not available Not available 11/19/20182020 96745 91 RxNorm Delmis Garcia foote [facility] 10:49:15 04337 ciproflox acin medicatio n hives Not available Not available 09/10/20212020 2551 RxNorm Delmis Garcia foote [facility] 10:49:15 Medications Name Sig Start Date [...] Available Not Available pravastatin 10 mg tablet TAKE 1 TABLET BY MOUTH EVERYDAY AT BEDTIME 2024 active Not Available Not Available Not Avai lable tamsulosin 0.4 mg capsule TAKE 1 CAPSULE [...] Updated DateTime 4 166.37 cm 42.6 kg/m2 005712. 02 g 70 /min 98 % 98 % 98.1 [degF] 131 mm[Hg] 76 mm[Hg] Bronwyn robin [facility] 4 13:32:05 Date Recorded Body height Body mass index (BMI) Body weight Heart rate Oxygen saturation Oxygen saturation in Arterial blood by Pulse oximetry Body temperature Systolic blood pressure Diastolic blood pressure Provider Name and Address Organization Details Last Updated DateTime 4 166.37 cm 43.2 kg/m2 094190. 89 g 57 /min 98 % 98 % 98.8 [degF] 145 mm[Hg] 73 mm[Hg] Amita Quintana LPN [facility] [place] 4 09:51:51 Date Recorded Systolic blood pressure Diastolic blood pressure Provider Name and Address Organization Details Last Updated DateTime 08/25/2024 134 mm[Hg] 76 mm[Hg] MARIA DOLORES CAREY [address] [place], [address], [facility] 08/25/2024 10:18:25 Date Recorded Body height Body mass index (BMI) Body weight Heart rate Oxygen saturation Oxygen saturation in Arterial blood by Pulse oximetry Body temperature Systolic blood pressure Diastolic blood pressure Systolic blood pressure Diastolic blood pressure Provider Name and Address Organization Details Last Updated DateTime 4 166.37 cm 43.1 kg/m2 256111. 79 g 67 /min 97 % 97 % 98.3 [degF] 146 mm[Hg] 77 mm[Hg] 136 mm[Hg] 68 mm[Hg] Bronwyn robin MA [facility] 4 10:45:55 Date Recorded Body height Body mass index (BMI) Body weight Oxygen saturation Oxygen saturation in Arterial blood by Pulse oximetry Heart rate Body temperature Systolic blood pressure Diastolic blood pressure Provider Name and Address Organization Details Last Updated DateTime 4 166.37 cm 41.9 kg/m2 539594. 85 g 99 % 99 % 69 /min 98.4 [degF] 123 mm[Hg] 79 mm[Hg] Nicole Bess MA [facility] 4 10:27:10 Social History Question Answer Notes LastModified by Organizat ion Details LastModified Time Tobacco Smoking Status Never Smoker PATSY Stout, [facility] 03/20/2016 14:01:45 Do You Have An [...] Recorded Time Tdap 2 completed Delmis foote [facility] 08/07/2022 13:59:27 zoster live 4 completed Delmis foote [facility] 08/07/2022 13:59:27 Influenza, split virus, trivalent, preservative 6 completed Delmis foote [facility] 08/07/2022 13:59:27 Influenza, split virus, quadrivalent, PF 8 completed PATSY Mancilla [facility] 08/07/2023 09:52:25 zoster recombinant 9 completed PATSY Mancilla [facility] 08/07/2023 09:52:25 Influenza, split virus, quadrivalent, PF 9 completed PATSY Mancilla, [facility] 08/07/2023 09:52:25 Influenza, high-dose, trivalent, PF 0 [facility] 13:59:27 Pneumococcal conjugate PCV 13 0 completed Delmis foote [facility] 08/07/2022 13:59:27 COVID-19, mRNA, LNP-S, PF, 30 mcg/0.3 mL dose 1 [facility]/07/2023 09:52:25 COVID-19, mRNA, LNP-S, PF, 30 mcg/0.3 mL dose 1 [facility] 09:52:25 Influenza, high-dose, quadrivalent, PF 1 completed PATSY Mancilla, [facility] 08/07/2023 09:52:25 pneumococcal polysaccharide PPV23 1 [facility]2022 13:59:27 COVID-19, mRNA, LNP-S, PF, 30 mcg/0.3 mL dose 1 completed PATSY Mancilla [facility] 08/07/2023 09:52:25 Influenza, split virus, quadrivalent, PF 7 completed PATSY Mancilla, [facility] 08/07/2023 09:52:25 zoster recombinant 2 [facility]23 09:52:25 COVID-19, mRNA, LNP-S, PF, 30 mcg/0.3 mL dose, pearl-sucrose 2 completed [facility]07/2023 09:52:25 Influenza, high-dose, quadrivalent, PF 2 completed [facility] 08/07/2023 10:07:35 Pneumococcal conjugate PCV20, polysaccharide [id number] conjugate, adjuvant, PF 2 completed [facility]/07/2023 09:52:25 COVID-19, mRNA, LNP-S, bivalent, PF, 30 mcg/0.3 mL dose 2 completed [facility]/07/2023 09:52:25 Influenza, split virus, quadrivalent, preservative 6 completed [facility]/07/2023 09:52:25 Influenza, split virus, quadrivalent, PF 4 completed PATSY Mancilla [facility] 08/07/2023 09:52:25 RSV, recombinant, protein subunit RSVpreF, adjuvant reconstituted, 0.5 mL, PF 3 completed PATSY Mancilla [facility] 08/07/2023 10:04:15 COVID-19, mRNA, LNP-S, PF, 30 mcg/0.3 mL dose 3 completed PATSY Mancilla [facility] 08/07/2023 10:07:57 Influenza, adjuvanted, quadrivalent, PF 3 completed PATSY Coon [facility] 09/10/2023 10:54:09 Influenza, high-dose, quadrivalent, PF 2 completed PATSY oCon, [facility] 09/10/2023 10:54:09 COVID-19, mRNA, LNP-S, PF, pearl-sucrose, 30 mcg/0.3 mL 3 completed PATSY Coon [facility] 09/10/2023 10:54:09 Td(adult) unspecified formulation 3 completed Nii Yates MD [address] [address], [place], [address], [facility] 05/24/2024 10:55:35 COVID-19, mRNA, LNP-S, PF, 50 mcg/0.5 mL 4 completed Delmissekou foote [facility] 08/13/2024 11:29:35 Influenza, high-dose, trivalent, PF 4 completed Bronwyn Cardenas MS dary, [facility] 08/03/2024 14:25:07 Past Encounters Encounter ID Performer Location Encounter Start Date Encounter Closed Date Diagnosis/Indication Diagnosis SNOMED-CT Code Diagnosis ICD10 Code Diagnosis Note [id number] Jason Guevara MD Main Office [address] [address] 03/20/2016 13:27:10 03/20/2016 15:02:18 Hypothyroidism 85418242 E03.9 Labile hyp ertension due to being in a clinical environment 062989196 I15.8 Hyperlipidemia 66515245 E78.0 Fatigue 44138460 R53.83 Vitamin D deficiency 347 83830 E55.9 Gastroesop hageal reflux disease 750328946 K21.9 Body mass index 40+ - severely obese 826607391 Z68.41 [id number] Jason Guevara MD Main Office [address] [address] 09/26/2016 15:10:11 09/26/2016 16:42:07 Adult health examination 442889851 Z00.00 Varicose v eins of lower extremity 76926621 I83.893 Body mass index 40+ - severely obese 873129993 Z68.41 Hypothyroidism 62254692 E03.9 Gastroesop hageal reflux disease 188708993 K21.9 [id number] Leif villatoro Main Office [address] [place] [address] 07/12/2017 09:37:53 07/12/2017 10:10:36 Needs influenza immunization 135121806 Z23 [id number] Jason Guevara MD Main Office [address] [facility] [address] [place] [address] 10/13/2017 13:26:17 10/13/2017 14:47:58 Adult health examination 264088689 Z00.00 Hypothyroidism 53739747 E03.9 Essential hypertension 13355815 I10 Stable off of medication s Hyperlipidemia 31844503 E78.2 Gastroesop hageal reflux disease 572137922 K21.9 Body mass index 40+ - severely obese 067220250 E66.01 Z68.41 [id number] Nica Gray Main Office [address] [address] [place] [address] 11/19/2018 13:36:04 11/19/2018 14:56:16 Pre-surgery evaluation 801473153 Z01.818 Pt had labs recently and will get results. Advised to hold aspirin and relafen 1 week prior. Noble score 0.1% with most risk from morbid obesity. BP normal at this time, pt able to do at least 4 METS Body mass index 40+ - severely obese 000798698 E66.01 Z68.41 Continue weight loss, on WW plan now. Discussed adding different exercises including resistance training. Discuss core exercises with surgeon Umbilical hernia 1445704 07 K42.9 [id number] Jason Guevara MD Main Office [address] [facility] [address] [place] [address] 01/18/2019 12:54:54 01/18/2019 14:19:05 Adult health examination 135537941 Z00.00 Screening for malignant neoplasm of breast 311876085 Z12.39 Essential hypertension 49038090 I10 Stable off of medication s Gastroesop hageal reflux disease 081114870 K21.9 Hypothyroidism 81633902 E03.9 Hyperlipidemia 67483753 E78.2 Body mass index 40+ - severely obese 640511007 E66.01 Z68.41 Hepatitis C screening 41 9388719 Z11.59 Plantar fasciitis 872044 003 M72.2 Vitamin D deficiency 347 86967 E55.9 [id number] Shayy rosales Main Office [address] [facility] [address] [place] [address] 01/27/2019 13:51:24 01/27/2019 14:47:01 Allergic reaction 689854369 T78.40XA area of first shingrix vaccine with redness, warm and itching.. no streaking avoid shingrix [id number] Jorden Sandoval PA-C Main Office [address] [address] [place] [address] 07/26/2019 10:21:01 07/26/2019 11:28:39 Thrombophlebitis of superficial veins of lower extremity 56707191 I80.01 rec cont comp socks, use warm washcloth for a few minutes few times/day, and increase nabumetone to 1000mg bid x few days, then back to usual dose of 500mg bid offered reassuranc e - no evidence of dvt Peripheral venous insufficiency 70580893 I87.2 cont comp socks, f/u c vein specialist in 09/04 as dir [id number] Jason Guevara MD Main Office [address] [address] [place] [address] 08/07/2020 13:01:37 08/07/2020 14:26:46 Adult health examination 569790572 Z00.00 Essential hypertension 21852423 I10 Stable off of medication s Hypothyroidism 80669649 E03.9 Screening for malignant neoplasm of breast 437970432 Z12.39 Menopause present 648153 006 Z78.0 Gastroesop hageal reflux disease 445604229 K21.9 Lateral epicondylitis 20 4083185 M77.12 Body mass index 40+ - severely obese 225512473 E66.01 Z68.41 [id number] Nii Yates MD Main Office [address] [place] [address] 08/10/2021 09:47:22 08/10/2021 10:49:11 Adult health examination 774931650 Z00.00 Patient was counseled on healthy diet, [...] . Advance di rective discussed with patient 985447337 Z71.89 MOLST and HCP discussed with patient, patient to discuss with family and bring back at next visit. Fatigue 08526778 R53.83 Hyperlipidemia 47718434 E78.5 Screening for malignant neoplasm of breast 653343352 Z12.39 Insomnia 461989954 G47.0 0 Body mass index 40+ - severely obese 415295529 Z68.41 - Diet and exercise discussed- Patient made aware of risks of obesity- Avoid starchy and fatty food- Encouraged use of green vegetables and fruits Morbid obesity 706042829 E66.01 Essential hypertension 64439824 I10 [id number] Nica Gray Main Office [address] [address] 10/02/2021 11:19:28 10/02/2021 12:12:21 Chronic kidney disease stage 3B 817173071 N18.[address] Shahid Hypertensi ve renal disease 66689327 I12.9 Danita showed me a full log [...] nephrology Dr. Shahid see essential HTN above. [id number] Nica Gray Main Office [address] [facility] [address] [facility] [place] [address] 08/28/2022 12:57:11 08/28/2022 13:52:16 Adult health examination 889305254 Z00.00 Patient was counseled on healthy diet, [...] . Advance di rective discussed with patient 235654038 Z71.89 MOLST and HCP discussed with patient, patient to discuss with family and bring back at next visit. Fatigue 51563269 R53.83 Hyperlipidemia 83875707 E78.5 Screening for malignant neoplasm of breast 914959824 Z12.39 Body mass index 40+ - severely obese 003333754 Z68.41 - Diet and exercise discussed- Patient made aware of risks of obesity- Avoid starchy and fatty food- Encouraged use of green vegetables and fruits Morbid obesity 626176558 E66.01 Chronic ki dney disease stage 3A 482945882 N18.[address] Shahid Neck pain 85565052 M54.2 Suspected MSK strain will get xr given age, if wnl advised ok to do PT.No red flag on PE. Vitamin D deficiency 347 63168 E55.9 Hypertensi ve renal disease 13248971 I12.9 BP stable with current regimen. [id number] BROOKS AGUILAR MD Main Office [address] [place] [address] 08/07/2023 10:02:13 08/07/2023 13:04:34 [id number] Cheryl Oropeza, [facility] [address] [place] [address] 09/10/2023 09:49:15 09/10/2023 10:53:53 COVID-19 563522722 U07.1 Hydration, rest, if feeling better quarantine x 5 days then mask for 5 days. If not better after 5 days quarantine for full 10 days. Tylenol as needed, OTC cough med as needed. Call/ return for worsening sx or concerns. Chronic ki dney disease stage 3A 480333526 N18.31 GFR 49, Creatinine 1.2 Hypertensi ve renal disease 59697222 I12.9 Laryngitis 66866908 J04. 0 [id number] Nii Yates MD Main Office [address] [place] [address] 10/04/2023 08:32:10 10/04/2023 09:30:14 Adult health examination 958576846 Z00.00 Patient was counseled on healthy diet, exercise and nutrition due to Body mass index is 41.2 kg/m? ? ?. Last Colonoscop y:Date: 07/04/20Res ult: tubular adenomaPla n: repeat in 5 yrs Last Mammogram: Date: 11/01/22Re sult: Birad -1Plan: done by radio frequency design engineer Last Pap smearDate: 12/07/21Res ult: Neg for [...] Distracted driving discussed. Medication reconciled . Fatigue 36088793 R53.83 Hyperlipidemia 16499037 E78.5 Morbid obesity 129061798 E66.01 Body mass index 40+ - severely obese 897397864 Z68.41 - Diet and exercise discussed- Patient made aware of risks of obesity- Avoid starchy and fatty food- Encouraged use of green vegetables and fruits Advance di rective discussed with patient 435556648 Z71.89 MOLST and HCP discussed with patient, patient to discuss with family and bring back at next visit. Hypertensi ve renal disease 88317519 I12.9 BP stable with current regimen per renal and her home reading, little high in office today. She is otherwise asymptomat ic. BP could elevated due to discomfort from renal stone advised to monitor bp, she is otherwise following this up with renal. Chronic ki dney disease stage 3A 895074479 N18.[address] Shahid Vitamin D deficiency 347 26258 E55.9 Impaired f asting glycemia 239717346 R73.01 Administra tion of viral vaccine 33534134 Z23 [id number] Nica Gray Main Office [address] [facility] [address] [facility] [place] [address] 03/22/2024 09:34:14 03/22/2024 10:28:00 Pre-surgery evaluation 092998904 Z01.818 No medical contraindi cations to proposed procedure. Real Perioperat anson Cardiac Risk was calculated and the risk for perioperat anson PR is 0.6%. May proceed to surgery as planned.-c ompleted lab work this morning; bmp, cbc, and urinalysis -EGG revealed premature supraventr icular complexes; pt is asymptomat ic. New when compared to ecg from 2019. Scheduled to f/u in 2 months for repeat ECG. Chronic ki dney disease stage 3A 220479133 N18.[address] Shahid Hypertensi ve renal disease 34568056 I12.9 currently on amlodipine 5mg QD and lisinopril 10mg QD-in office BP of 160/81 and 136/78 Kidney stone 26726470 N2 0.0 [id number] Nii Yates MD Main Office [address] [address] [place] [address] 05/24/2024 10:08:25 05/24/2024 11:06:06 ECG: sinus arrhythmia 067654258 R94.31 repeat ecg reassuring . [id number] Joseph Aguilar MD Main Office [address] [facility] [address] [place] [address] 07/13/2024 10:38:10 07/13/2024 11:12:04 Cough 46980579 R05.9 Possible secondary to PND. Maybe be viral as well. Advised to use OTC meds as needed. Posterior rhinorrhea 758 14965 R09.82 [id number] Nii Yates MD Main Office [address] [address] [place] [address] 08/03/2024 13:18:17 08/03/2024 14:09:53 Influenza vaccine needed 7240613852 106 Z23 65 YEARS AND OLDER Cough 89126064 R05.9 -Will proceed with PFT and methacholi ne.-Will get allergy testing via lab.-Will get CXR. Dyspnea 434432004 R06.00 No calf pain, no recent travel. Allergic rhinitis 354171 04 J30.9 [id number] MARIA DOLORES CAREY Main Office [address] [address] [place] [address] 07/30/2024 10:26:26 07/30/2024 11:03:56 Dyspnea on exertion 03632690 R06.09 -recently stopped using her flonase and [...] evaluate with PFTs w/ methacholi ne challenge [id number] MARIA DOLORES CAREY Main Office [address] [place] [address] 08/25/2024 09:37:24 08/25/2024 10:25:17 Pre-surgery evaluation 405286276 Z01.818 No medical contraindi cations to proposed procedure. Noble Perioperat anson Cardiac Risk was calculated and the risk for perioperat anson PR is <0.5%. May proceed to surgery as planned.-r ecently completed CBC w/ diff, BMP in 07/2024-EGG ; slightly bradycardi c, 57 bpm, NSR, no ST changes Chronic ki dney disease stage 3A 739009065 N18.[address] Shahid Hypertensi ve renal disease 48887631 I12.9 currently on amlodipine 5mg QD and losartan 50mg QD-in office BP of 145/73 Hypothyroidism 48693220 E03.9 -on levothyrox ine 75mcg Arthritis of first carpometacarpal joint of right hand 0087621687 549445 M13.841 pre-operat anson medical clearance for right thumb carpometac arpal arthroplas ty procedure with Dr. Gurjit Steele (NPI#[id number]) on 09/16/2024 . Under MAC. [id number] Nica Gray Main Office [address] [place] [address] 10/05/2024 09:50:28 10/05/2024 10:51:19 Adult health examination 747076006 Z00.00 Patient was counseled on healthy diet, exercise and nutrition due to Body mass index is 43.2 kg/m? ? ?. Last Colonoscop y:Date: 07/04/20 ult: tubular adenomaPla n: repeat in 5 yrs Last Mammogram: Date: 11/03/2023 Result: Birad -1Plan: done by radio frequency design engineer Last Pap smearDate: 12/07/21Res ult: Neg for [...] Distracted driving discussed. Medication reconciled . Fatigue 98115688 R53.83 Hyperlipidemia 35460508 E78.5 Morbid obesity 750328694 E66.01 Body mass index 40+ - severely obese 501956952 Z68.41 - Diet and exercise discussed- Patient made aware of risks of obesity- Avoid starchy and fatty food- Encouraged use of green vegetables and fruits Advance di rective discussed with patient 369912898 Z71.89 MOLST and HCP discussed with patient, patient to discuss with family and bring back at next visit. Hypertensi ve renal disease 67675736 I12.9 BP little elevated, followed by renal med adjustment being made. Chronic ki dney disease stage 3A 265682032 N18.[address] Shahid Vitamin D deficiency 347 40632 E55.9 Impaired f asting glycemia 195791674 R73.01 Screening for malignant neoplasm of breast 777511661 Z12.39 [id number] Nii Yates MD Main Office [address] [place] [address] 11/04/2024 08:30:11 11/05/2024 16:23:02 [id number] Janel Sandoval PA-C Main Office [address] [place] [address] 11/09/2024 10:18:25 11/09/2024 11:07:20 Atrial flutter 2809315 I48.92 new acute onset of atrial flutter [...] stable in September. Hypertensi ve renal disease 71598343 I12.9 stable hypertensi on on current medication s. Chronic ki dney disease stage 3A 075981709 N18.31 stable, f/u with Dr. Shahid in November. Hypothyroidism 63971880 E03.9 stable on current medication . Moderate p ersistent asthma 897010612 J45.40 stable, pt. will continue Wixela and [...] Member ID Guarantor Name 08/03/2024 1 MEDICARE B-MS: [employer] Danita A Randle [id number] Danita A Randle 08/03/2024 2 [employer] IN[employer]MNITY PLAN - [employer] [id number] Danita A Randle [id number] Danita A Randle 08/25/2024 1 MEDICARE B-MS: [employer] Danita A Randle [id number] Danita A Randle 08/25/2024 2 [employer] INDEMNITY PLAN - [employer] [id number] Danita A Randle [id number] Danita A Randle 10/05/2024 1 [facility] [employer] Danita A Randle [id number] Danita A Randle 10/05/2024 2 [employer] INDEMNITY PLAN - [employer] [id number] Danita A Randle [id number] Danita A Randle 11/04/2024 1 MEDICARE B-MS: [employer] Danita A Randle [id number] Danita A Randle 11/04/2024 2 [employer] INDEMNITY PLAN - [employer] [id number] Danita A Randle [id number] Danita A Randle 11/09/2024 1 MEDICARE B-MS: [employer] Danita A Randle [id number] Danita A Randle 11/09/2024 2 [employer] IN[employer] PLAN - [employer] [id number] Danita A Randle [id number] Danita A Randle Notes Date Note Type Note Provider Name and Address Organization Details Recorded Time 08/03/2024 text/html Follow up for co ugh and med review, sx stable has PFT scheduled tomorrow. Doing ok otherwise. Nii Yates MD [address] [facility] [address], [place], [address], [facility] 08/03/2024 13:59:13 08/25/2024 text/html Danita is a 69yr old F with PMHx of CKD stage 3A, hypothyroidism, presents for pre-operative medical clearance for right thumb carpometacarpal arthroplasty procedure with Dr. Gurjit Steele (NPI#[id number]) on 09/16/2024. Under MAC. Denies any acute [...] chills, and nausea/vomiting. MARIA DOLORES CAREY [address] [facility] [address], [place], [address], [facility] 08/25/2024 10:40:33 10/05/2024 text/html Medicare [...] arthritis.Blood pressure followed by renal. Nica foote [facility] 10/18/2024 10:51:09 11/04/2024 text/html Hospitalization Contact RecordReported bypatient.Follow UpHospital: [facility]; admit date: (Please enter in format 'MM/DD/YYYY') [...] disease, and Vitamin D deficiency presented to [facility] 10/28 from pre-op area where she [...] Nii Yates MD [address], [place], [address], [facility] 11/05/2024 16:23:01 11/09/2024 text/html 69 year old malcom field for transition of care visit. Admitted 10/28 through 11/03/24 to [facility] for new onset atrial flutter and bronchospasm . Janel Sandoval PA-C [address], [place], [address], [facility] 11/09/2024 11:02:04 11/09/2024 text/html Hospitalization Contact RecordReported bypatient.Follow UpHospital: [facility]; admit date: (Please enter in format 'MM/DD/YYYY') [...] disease, and Vitamin D deficiency presented to [facility] 10/28 from pre-op area where she [...] # for future use. Janel Sandoval PA-C [address] [facility] [address] [facility], [place], [address], [place] [facility] 11/09/2024 11:02:04 OBGyn Episode No OBEpisode recorded.
--- OUTSIDE RECORDS SUMMARY | 2025-01-10 14:25 | XMS_ITS | Clinical Summary ---
Author Organization [facility] Address [address] [place] [address] Care Team Providers Care Battery Charger Name Role Phone Sugey Rice MD Primary Care Provider [phone] Allergies Active Allergy Reactions Criticality Noted Date [...] 12/22/2024 10:00 AM EST [place] [address] Gurjit Steele MD [facility] arthritis (Primary Dx) 11/18/2024 11:00 AM EST Treatment Orthopedic [address] [id number] Mariela Meo, BETTE 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); Stiffness of left hand joint 10/27/2024 11:30 AM EST Treatment Orthopedic [address] [address] Mariela Moe OT 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); Stiffness of left hand joint 10/27/2024 10:45 AM EST [place] [address] Gurjit Steele MD Osteoarthritis of carpometacarpal (CMC) [...] AM EDT Office Visit [facility] [address] [place] [address] Gurjit Steele MD [address] [place] [address] [address] [place] [address] 06/29/2025 10:30 AM EDT Office Visit [facility] [place] [address] Josef Loya MD [address] [place] [address] Health Maintenance Due Date Last Done Comments [...] this topic Medical Devices Explanted Type Area Fruit And Vegetable Packer Device Identifier Shelf Expiration Date Model / Serial / Lot [id number] Stent Ureteral 6fr 26cm Taper Tip Bldr Benjie Lp Contour Hdr+ - [id number] Implanted:Qty : 1 on 03/29/2024 by Josef Loya MD at [facility] Explanted:Qty : 1 on 04/07/2024 by Josef Loya MD Stent Right: Ureter Galenea DIANA [id number] 11/30/2026 [id number] Care Teams Battery Charger Relationship Specialty Start Date End Date Sugey Rice MD [address] [facility] [address] [place] [address] PCP - General Family Medicine 05/05/23
--- OUTSIDE RECORDS SUMMARY | 2025-01-10 14:25 | XMS_ITS | Encounter Summary ---
Author Organization [facility] Address [address] [place] [address] Phone Care Team Providers Care Philosophy Instructor Name Role Phone Sugey Rice MD Primary Care Provider [phone] Encounter Details Date Type Department Care Team (Late Contact Info) Description 08/04/2023 Documentation Only [facility] [place], [address] [place] [phone] Leonardo Stovall DO [address] [place] [address] Social History Tobacco Use Types [...] Visit [facility] [place] [address] [place] [id number] Leonardo Stovall DO [address] [place] [address] documented as of this encounter Visit Diagnoses Not on filedocumented in this encounter Care Teams Philosophy Instructor Relationship Specialty Start Date End Date Sugey Rice MD [address] [address] PCP - General Family Medicine 09/04/21 documented as of this encounter
--- OUTSIDE RECORDS SUMMARY | 2025-01-10 14:25 | XMS_ITS | Clinical Summary ---
Author Organization [facility], Address [address] [place] [address] [place] [address] Phone Care Team Providers Care Analytical Chemistry Teacher Name Role Phone Sugey Rice MD Primary Care Provider [phone] Allergies Active Allergy Reactions Criticality Noted Date [...] Only [facility] [address] [place] [address] Lissett Zacarias [place] 12/10/2024 2:00 PM EST Office Visit [facility] [address] [place] [address] Leonardo Stovall DO Stage 3a chronic kidney disease (HCC) (Primary Dx); Hypertensive heart and chronic kidney disease without heart failure, with stage 1 through stage 4 chronic kidney disease, or unspecified chronic kidney disease; Uric acid renal calculus; Essential hypertension 12/10/2024 Documentation Only [facility] [address] [place] [address] Lissett Zacarias [place] 10/24/2024 Refill [facility] [address] [place] [address] Leonardo Stovall DO from Last 3 Months [...] Kidney disease Sibling 1 Son - high temperature control inspector Cancer Sibling 2 brother-SCC Relation Status Comments [...] Visit [facility] - [place] [address] [place] [address] Leonardo Stovall DO [address] [place] [address] Dr. [place] [address] Health Maintenance Due [...] patient's age to complete this topic Insurance [facility] MEDICARE Care Teams Analytical Chemistry Teacher Relationship Specialty Start Date End Date Sugey Rice MD [address] [phone] PCP - General Family Medicine 09/04/21
[2025-01-10 15:05] LABS: Anion Gap 11 (12-20); Blood Urea Nitrogen 25 mg/dL (9-16); Calcium 9.6 mg/dL (8.4-10.2); Carbon Dioxide 28 mmol/L (22-29); Chloride 107 mmol/L (96-108); Estimated Glomerular Filt Rate 43; Glucose Random 120 mg/dL (60-115); Potassium 5.1 mmol/L (3.3-5.1); Sodium 141 mmol/L (135-145)
[2025-01-10 20:14] LABS: B Type Natriuretic Peptide 110 pg/mL (<100)
== END 2025-01-10 11:19 | disposition home or self-care (01) ==
LOC: HO.LAB 11:18
PROVIDERS: PCP Family Medicine; Visit Provider Internal Medicine Cardiovascular Disease
DX: I48.92 Unspecified atrial flutter (principal); R07.9 Chest pain, unspecified; I27.20 Pulmonary hypertension, unspecified; Z79.899 Other long term (current) drug therapy; J98.4 Other disorders of lung; J45.41 Moderate persistent asthma with (acute) exacerbation; R06.81 Apnea, not elsewhere classified
CPT/HCPCS: 36415; 80048; 83880; 93005; 99212

== ENCOUNTER 2025-02-03 08:10 | Outpatient (AMB) | payer MEDICARE, OTHER, SELFPAY ==
--- OUTSIDE RECORDS SUMMARY | 2025-02-03 08:16 | XMS_ITS | Encounter Summary ---
Author Organization [facility] Address [address] [place] [address] Care Team Providers Care Nail Professional Name Role Phone Sugey Rice MD Primary Care Provider [phone] Reason for Visit * Reason Comments Other Pre-op Encounter Details Date Type Department Care Team ([facility] st Contact Info) Description 03/15/2024 Telephone [facility] Urologic Surgery [place] [address] [address] Josef Loya MD 80 [place] [address] Other (Pre-op ) Social History Tobacco Use [...] EDT [facility] Visit [facility] [address] [place] [address] Gurjit Steele MD 31 [facility] 100 [place] [address] 06/29/2025 10:30 AM EDT Office Visit [facility] [place] [address] [place] [phone] Josef Loya MD 80 [place] [address] documented as of this encounter Visit Diagnoses Not on filedocumented in this encounter Care Teams Nail Professional Relationship Specialty Start Date End Date Sugey Rice MD [address] [place] [address] 207 [place] [address] PCP - General Family Medicine 05/05/23 documented as of this encounter
--- OUTSIDE RECORDS SUMMARY | 2025-02-03 08:16 | XMS_ITS | Clinical Summary ---
Author Organization [address] Address [address] [place] [address] Phone Care Team Providers Care Porcelain Buildup Assistant Name Role Phone Sugey Rice MD Primary Care Provider [phone] Allergies Active Allergy Reactions Criticality Noted Date [...] 5 Active omeprazole (PriLOSEC) [address] Rodriguez ons:GERD (gastroesophage al reflux disease) Take 1 capsule (40 mg total) by mouth 1 (one) time each day. 90 each 3 5 12/10/19 26 Active Encounters Date Type Department Care Team Description 02/01/2025 10:10 AM EDT Lab Draw Station - [address] [facility] [place] [address] Irritable bowel syndrome without diarrhea 02/01/2025 Telephone Gastroenterology - [address] [place] [address] [address] [place] [phone] Nano Brown MD 02/01/2025 Telephone Gastroenterology - [address] [place] [phone] Nano Brown MD 02/01/2025 Telephone Gastroenterology - [address] [place] [address] [place] [address] Macie Harper MA 01/31/2025 Telephone Gastroenterology - [address] [place] [address] [address] [place] [phone] Nano Brown MD 12/10/2024 9:00 AM EST Office Visit Gastroenterology - [address] [address] Nano Brown MD Irritable bowel syndrome without diarrhea (Primary Dx); GERD (gastroesophageal reflux disease); Colon cancer screening from Last 3 Months Surgical History Surgery Date Site/Laterality Comments COLONOSCOPY W/ POLYPECTOMY 06/17/2020 - 07/17/2020 TA x 1 SECTION x 3 VARICOSE VEIN SURGERY COLONOSCOPY 07/07/2015 Dr. Andrews - Medical History Medical History Date Comments GERD [...] Health Maintenance Due Date Last Done Comments Cholesterol Screening (Lipid Panel) 10/08/2024 Depression Screening 10/08/2024 Falls Risk Assessment 10/08/2024 Hepatitis C Screening 10/08/2024 Medicare Annual Wellness Visit 10/08/2024 Social Influencers of Health Screening 10/08/2024 Hypertension/CHF/CAD Annual BMP Blood Test 03/22/2025 03/22/2024, 03/03/2024 Breast Cancer Screening 11/04/2026 11/04/2024 Colorectal Cancer Screening: Colonoscopy 07/04/2030 07/04/2020 Osteoporosis Screening (Bone Density Screening) 10/30/2030 10/30/2020 DTaP,Tdap,and Td Vaccines (3 - Td or Tdap) 10/24/2033 10/24/2023, 04/17/2012 Zoster Vaccines Completed 05/08/2022, 03/2019, 07/19/2014 Pneumococcal Vaccine: 50+ Years Completed 07/17/2022, [...] Procedure Name Priority Date/Time Associated Diagnosis Comments CBC WITH AUTO DIFFERENTIAL Routine 02/01/2025 10:15 AM EDT Irritable bowel syndrome without diarrhea CBC AND DIFFERENTIAL Routine 02/01/2025 10:15 AM EDT Irritable bowel syndrome without diarrhea COLONOSCOPY Routine 07/04/2020 9:41 AM EDT from Last 3 Months or Most Recently Relevant to Health Maintenance Results * (ABNORMAL) CBC auto differential (02/01/2025 10:15 AM EDT) [facility] WBC 6.4 4.8 - 10.8 K/mcL LAB HEMETOLOGY METHOD 02/01/2025 11:46 AM [facility] RBC 3.30(L) 3.80 - 4.80 M/mcL LAB HEMETOLOGY METHOD 02/01/2025 11:46 AM [facility] Hemoglobin 10.1(L) 11.5 - 16.0 g/dL LAB HEMETOLOGY METHOD 02/01/2025 11:46 AM [facility] Hematocrit 31.6(L) 35.0 - 47.0 % LAB HEMETOLOGY METHOD 02/01/2025 11:46 AM [facility] MCV 96.9 79.0 - 98.0 FL LAB HEMETOLOGY METHOD 02/01/2025 11:46 AM [facility] MCH 31.0 27.0 - 32.0 pcg LAB HEMETOLOGY METHOD 02/01/2025 11:46 AM [facility] MCHC 32.0 32.0 - 37.0 g/dL LAB HEMETOLOGY METHOD 02/01/2025 11:46 AM [facility] RDW 13.9 11.0 - 15.0 % LAB HEMETOLOGY METHOD 02/01/2025 11:46 AM [facility] Platelets 201 130 - 400 K/mcL LAB HEMETOLOGY METHOD 02/01/2025 11:46 AM [facility] MPV 11.4(H) 7.0 - 11.0 FL LAB HEMETOLOGY METHOD 02/01/2025 11:46 AM [facility] NRBC 0.0 <1.0 % LAB HEMETOLOGY METHOD 02/01/2025 11:46 AM [facility] NRBC Absolute 0.00 <0.10 K/mcL LAB HEMETOLOGY METHOD 02/01/2025 11:46 AM [facility] Neutrophils Relative 61.0 % LAB HEMETOLOGY METHOD 02/01/2025 11:46 AM [facility] Lymphocytes Relative 29.9 % LAB HEMETOLOGY METHOD 02/01/2025 11:46 AM [facility] Monocytes Relative 6.3 % LAB HEMETOLOGY METHOD 02/01/2025 11:46 AM [facility] Eosinophils Relative 1.9 % LAB HEMETOLOGY METHOD 02/01/2025 11:46 AM [facility] Basophils Relative 0.6 % LAB HEMETOLOGY METHOD 02/01/2025 11:46 AM [facility] Immature Granulocytes Relative 0.3 % LAB HEMETOLOGY METHOD 02/01/2025 11:46 AM [facility] Neutrophils Absolute 3.87 1.50 - 7.00 K/mcL LAB HEMETOLOGY METHOD 02/01/2025 11:46 AM [facility] Lymphocytes Absolute 1.90 1.00 - 5.00 K/mcL LAB HEMETOLOGY METHOD 02/01/2025 11:46 AM [facility] Monocytes Absolute 0.40 0.20 - 1.00 K/mcL LAB HEMETOLOGY METHOD 02/01/2025 11:46 AM [facility] Eosinophils Absolute 0.12 0.00 - 0.50 K/mcL LAB HEMETOLOGY METHOD 02/01/2025 11:46 AM EDT [facility] Basophils Absolute 0.04 0.00 - 0.20 K/mcL LAB HEMETOLOGY METHOD 02/01/2025 11:46 AM EDT [facility] Immature Granulocytes Absolute 0.02 0.00 - 0.03 K/mcL LAB HEMETOLOGY METHOD 02/01/2025 11:46 AM EDT [facility] Blood Venous blood specimen / Unknown Venipuncture / Unknown 02/01/2025 10:15 AM EDT 02/01/2025 11:33 AM EDT Nano Brown MD LAB BLOOD ORDERABLES Final Res ult [facility] [address] [place] [address], * COLONOSCOPY (07/04/2020 9:41 AM EDT) Anatomical Region Laterality Modality Endoscopy Historical Provider GI~PROCEDURE ORDERABLES F inal Result from Last 3 Months or Most Recently Relevant to Health Maintenance Insurance MEDIC[place] [id number] Care Teams Porcelain Buildup Assistant Relationship Specialty Start Date End Date Sugey Rice MD [facility] [address] [address] PCP - General Family Medicine 10/07/24
--- OUTSIDE RECORDS SUMMARY | 2025-02-03 08:16 | XMS_ITS | Encounter Summary ---
Author Organization [facility] Address [address] [place] [address] Care Team Providers Care Tax Staff Accountant Name Role Phone Sugey Rice MD Primary Care Provider [phone] Reason for Visit * Reason Comments Appointment Encounter Details Date Type Department Care Team (Late Contact Info) Description 02/05/[address] [address] Josef Loya MD 80 [place] [address] Appointment Social History Tobacco Use Types Packs/Day [...] AM EDT [facility] [address] [place] [address] Gurjit Steele MD [address] [address] 06/29/2025 10:30 AM EDT Office Visit [facility] [place] [phone] Josef Loya MD [address] [place] [address] documented as of this encounter Visit Diagnoses Not on filedocumented in this encounter Care Teams Tax Staff Accountant Relationship Specialty Start Date End Date Sugey Rice MD [address] [address] PCP - General Family Medicine 05/05/23 documented as of this encounter
--- OUTSIDE RECORDS SUMMARY | 2025-02-03 08:16 | XMS_ITS | Encounter Summary ---
Author Organization [facility] Address [address] [place] [address] Phone Care Team Providers Care Brass Chaser Name Role Phone Sugey Rice MD Primary Care Provider [phone] Encounter Details Date Type Department Care Team (Late st Contact Info) Description 12/17/2024 Documentation Only [facility] [place], [address] [facility] [place] [phone] [place]ett [place], [place] [address] [place] [address] Social History Tobacco Use Types [...] Visit [facility] [place] [facility] [place] [address] [place] [phone] Leonardo Stovall [address] [facility] [place] [address] documented as of this encounter Visit Diagnoses Not on filedocumented in this encounter Care Teams Brass Chaser Relationship Specialty Start Date End Date Sugey Rice MD [address] [phone] PCP - General Family Medicine 09/04/21 documented as of this encounter
--- OUTSIDE RECORDS SUMMARY | 2025-02-03 08:16 | XMS_ITS | Encounter Summary ---
Author Organization [facility] Address [address] [place] [address] Care Team Providers Care Fuels Sales Representative Name Role Phone Sugey Rice MD Primary Care Provider [phone] Encounter Details Date Type Department Care Team (Late st Contact Info) Description 01/02/2022 Erroneous Encounter [facility] DEPT [address] [place] [address] Provider, MD Frank Social History Tobacco Use [...] AM EDT [facility] [address] [place] [address] Gurjit Steele MD [address] [facility] 100 [place] [address] 06/29/2025 10:30 AM EDT Office Visit [facility] [place] [address] [place] [phone] Josef Loya MD 80 [place] [address] documented as of this encounter Visit Diagnoses Not on filedocumented in this encounter Care Teams Fuels Sales Representative Relationship Specialty Start Date End Date Sugey Rice MD 36[address] [place] [address] PCP - General Family Medicine 05/05/23 documented as of this encounter
--- OUTSIDE RECORDS SUMMARY | 2025-02-03 08:16 | XMS_ITS | Encounter Summary ---
Author Organization [facility] Address [address] [place] [address] Care Team Providers Care Government Clerk Name Role Phone Sugey Rice MD Primary Care Provider [phone] Encounter Details Date Type Department Care Team (Late st Contact Info) Description 05/29/2023 Scanned Document Orthopedic [address] [phone] Leif Reed MD [address] [place] [address] Social History Tobacco Use Types Packs/Day Years [...] 10:00 AM EDT [facility] [address] [address] Gurjit Steele MD [address] [place] [address] 06/29/2025 10:30 AM EDT Office Visit [facility] Urology [place] [phone] Josef Loya MD [address] [place] [address] documented as of this encounter Visit Diagnoses Not on filedocumented in this encounter Care Teams Government Clerk Relationship Specialty Start Date End Date Sugey Rice MD [address] [address] PCP - General Family Medicine 05/05/23 documented as of this encounter
--- OUTSIDE RECORDS SUMMARY | 2025-02-03 08:16 | XMS_ITS | Encounter Summary ---
Author Organization [facility] Address [address] [place] [address] Phone Care Team Providers Care Business Liaison Officer Name Role Phone Sugey Rice MD Primary Care Provider Encounter Details Date Type Department Care Team (Late st Contact Info) Description 12/10/2024 Documentation Only [facility] [place], [address] [facility] [place] [phone] [place], [place] [address] [place] [address] Social History Tobacco Use Types [...] Visit [facility] [place] [facility] [place] [address] [place] [phone] Leonardo Stovall [address] [facility] [place] [phone] documented as of this encounter Visit Diagnoses Not on filedocumented in this encounter Care Teams Business Liaison Officer Relationship Specialty Start Date End Date Sugey Rice MD [address] [phone] PCP - General Family Medicine 09/04/21 documented as of this encounter
--- OUTSIDE RECORDS SUMMARY | 2025-02-03 08:17 | XMS_ITS | Encounter Summary ---
Author Organization [facility] Address [address] [place] [address] Phone Care Team Providers Care Musculoskeletal Physician Name Role Phone Sugey Rice MD Primary Care Provider [phone] Encounter Details Date Type Department Care Team (Late Contact Info) Description 07/22/2023 Documentation Only [facility] [place], [address] [facility] [place] [phone] Leonardo Stovall DO [address] [facility] [place] [address] Social History Tobacco Use Types [...] Visit [facility] [place] [facility] [place] [address] [place] [phone] Leonardo Stovall DO [address] [facility] [place] [address] documented as of this encounter Visit Diagnoses Not on filedocumented in this encounter Care Teams Musculoskeletal Physician Relationship Specialty Start Date End Date Sugey Rice MD [address] [phone] PCP - General Family Medicine 09/04/21 documented as of this encounter
--- OUTSIDE RECORDS SUMMARY | 2025-02-03 08:17 | XMS_ITS | Encounter Summary ---
Author Organization [facility] Address [address] [place] [address] Care Team Providers Care Carbonation Tester Name Role Phone Sugey Rice MD Primary Care Provider [phone] Encounter Details Date Type Department Care Team (Late st Contact Info) Description 02/01/2025 Telephone Gastroenterology - [address] [place] [phone] Nano Brown MD [address] [place] [address] Social History Tobacco Use Types Packs/Day Years [...] on file documented as of this encounter Progress Notes * Macie Harper MA - 02/01/2025 1:37 PM EDT SPOKE WITH PT/ WE WILL CALL BACK ONCE WE GET THE OTHER PCP LABS * Saloni Bernstein - 02/01/2025 1:24 PM EDT PT CALLED TO GIVE YOU TEST RESULTS FOR PT. PLEASE CALL WHEN AVAILABLE. documented in this encounter Plan of Treatment Not on file documented as of this encounter Visit Diagnoses Not on filedocumented in this encounter Care Teams Carbonation Tester Relationship Specialty Start Date End Date Sugey Rice MD [address] [address] PCP - General Family Medicine 10/07/24 documented as of this encounter
--- OUTSIDE RECORDS SUMMARY | 2025-02-03 08:17 | XMS_ITS | Encounter Summary ---
Author Organization [facility] Address [address] [place] [address] Phone Care Team Providers Care Commercial Teller Name Role Phone Sugey Rice MD Primary Care Provider [phone] Encounter Details Date Type Department Care Team (Late st Contact Info) Description 04/28/2024 Documentation Only [facility] [place], [address] [place] [phone] Leonardo Stovall DO [address] [facility] [place] [address] Social History Tobacco Use Types [...] Visit [facility] [place] [facility] [place] [address] [place] [phone] Leonardo Stovall DO [address] [facility] [place] [address] documented as of this encounter Visit Diagnoses Not on filedocumented in this encounter Care Teams Commercial Teller Relationship Specialty Start Date End Date Sugey Rice MD [address] [phone] PCP - General Family Medicine 09/04/21 documented as of this encounter
--- OUTSIDE RECORDS SUMMARY | 2025-02-03 08:17 | XMS_ITS | Encounter Summary ---
Author Organization [facility] Address [address] [place] [address] Phone Care Team Providers Care Plant Sciences Professor Name Role Phone Sugey Rice MD Primary Care Provider [phone] Reason for Visit * Reason Comments Med Refill Encounter Details Date Type Department Care Team (Late st Contact Info) Description 10/24/2024 Refill [facility] [address] [place] [address] Leonardo Stovall DO [address] [facility] [place] [address] Social History Tobacco Use Types [...] Visit [facility] [place] [address] Leonardo Stovall DO [address] [facility] [place] [address] documented as of this encounter Visit Diagnoses Not on filedocumented in this encounter Care Teams Plant Sciences Professor Relationship Specialty Start Date End Date Sugey Rice MD [address] [address] PCP - General Family Medicine 09/04/21 documented as of this encounter
--- OUTSIDE RECORDS SUMMARY | 2025-02-03 08:17 | XMS_ITS | Encounter Summary ---
Author Organization [facility] Address [address] [place] [address] Phone Care Team Providers Care Transport Company Manager Name Role Phone Sugey Rice MD Primary Care Provider [phone] Encounter Details Date Type Department Care Team (Late st Contact Info) Description 03/19/2024 Documentation Only [facility] [place], [address] [facility] [place] [phone] [place], [place] [address] [place] [address] Social History Tobacco Use Types [...] Visit [facility] [place] [facility] [place] [address] [place] [phone] Leonardo Stovall [address] [facility] [place] [phone] documented as of this encounter Visit Diagnoses Not on filedocumented in this encounter Care Teams Transport Company Manager Relationship Specialty Start Date End Date Sugey Rice MD [address] [phone] PCP - General Family Medicine 09/04/21 documented as of this encounter
--- OUTSIDE RECORDS SUMMARY | 2025-02-03 08:17 | XMS_ITS | Patient Health Record ---
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
--- OUTSIDE RECORDS SUMMARY | 2025-02-03 08:17 | XMS_ITS | Encounter Summary ---
Author Organization [facility] Address [address] [place] [address] Care Team Providers Care Corporate Treasury Analyst Name Role Phone Sugey Rice MD Primary Care Provider [phone] Encounter Details Date Type Department Care Team (Late st Contact Info) Description 01/31/2025 Telephone Gastroenterology - [address] [facility] [address] [place] [phone] Nano Brown MD [address] [facility] [address] [place] [address] Social History Tobacco Use Types Packs/Day Years [...] as of this encounter Progress Notes * Dory Choudhury MA - 01/31/2025 10:33 AM EDT Order in for CBC/ Spoke with patient she is traveling and will do tomorrow. * Mary Beth Toscano - 01/31/2025 9:04 AM EDT Pt calling stating that she called last night 01/30/25 due to questioning of internal bleeding, pt is on eliquis and is very worried. house calls nurse practitioner nurse advised for pt to get blood work done tomorrow, stated she would leave a note for the provider, please advise documented in this encounter Plan of Treatment Not on file documented as of this encounter Visit Diagnoses Not on filedocumented in this encounter Care Teams Corporate Treasury Analyst Relationship Specialty Start Date End Date Sugey Rice MD [address] [address] PCP - General Family Medicine 10/07/24 documented as of this encounter
--- OUTSIDE RECORDS SUMMARY | 2025-02-03 08:18 | XMS_ITS | Encounter Summary ---
Author Organization [facility] Address [address] [place] [address] Care Team Providers Care Readers' Advisory Service Librarian Name Role Phone Sugey Rice MD Primary Care Provider [phone] Encounter Details Date Type Department Care Team (Late st Contact Info) Description 02/01/2025 Telephone Gastroenterology - [address] [place] [phone] Macie Harper MA Social History Tobacco Use Types Packs/Day Years [...] Notes * Macie Harper MA - 02/01/2025 12:58 PM EDT Spoke with pt per Dr Brown labs show a mild anemia- although we do not have baseline blood count to know if this is a change for her. Pt states she is going to get us a copy of her last labs so you can compare. She states she is alsostill having rectal bleeding. Pt states she just started Eliquis in Oct. Can she stop that before her proc? She is willing to have it done sooner if she can. * Macie Harper MA - 02/01/2025 12:57 PM EDT ----- Message from Vinay Brown MD sent at 02/01/2025 12:51 PM EDT ----- Please let patient know that labs show a mild anemia- although I do not have a baseline blood countto know if this is a change for her. Is she having anymore rectal bleeding? If so we can move up her colonoscopy (she is due in June). documented in this encounter Plan of Treatment Not on file documented as of this encounter Visit Diagnoses Not on filedocumented in this encounter Care Teams Readers' Advisory Service Librarian Relationship Specialty Start Date End Date Sugey Rice MD [address] [phone] PCP - General Family Medicine 10/07/24 documented as of this encounter
--- OUTSIDE RECORDS SUMMARY | 2025-02-03 08:18 | XMS_ITS | Encounter Summary ---
Author Organization [facility] Address [address] [place] [address] Phone Care Team Providers Care Sports Reporter Name Role Phone Sugey Rice MD Primary Care Provider [phone] Encounter Details Date Type Department Care Team (Late st Contact Info) Description 07/29/2023 Documentation Only [facility] [place], [address] [place] [phone] [place], [place] [address] [place] [address] Social History Tobacco Use Types [...] Visit [facility] [place] [facility] [place] [address] [place] [phone] Leonardo Stovall [address] [place] [phone] documented as of this encounter Visit Diagnoses Not on filedocumented in this encounter Care Teams Sports Reporter Relationship Specialty Start Date End Date Sugey Rice MD [address] [phone] PCP - General Family Medicine 09/04/21 documented as of this encounter
--- OUTSIDE RECORDS SUMMARY | 2025-02-03 08:18 | XMS_ITS | Encounter Summary ---
Author Organization [facility] Address [address] [place] [address] Phone Care Team Providers Care Physicians Assistant Name Role Phone Sugey Rice MD Primary Care Provider [phone] Encounter Details Date Type Department Care Team (Late Contact Info) Description 08/04/2023 Documentation Only [facility] [place], [address] [place] [phone] Leonardo Stovall DO [address] [facility] [address] [place] [address] Social History Tobacco Use Types [...] Visit [facility] [place] [facility] [place] [address] [place] [phone] Leonardo Stovall DO [address] [facility] [address] [place] [address] documented as of this encounter Visit Diagnoses Not on filedocumented in this encounter Care Teams Physicians Assistant Relationship Specialty Start Date End Date Sugey Rice MD [address] [phone] PCP - General Family Medicine 09/04/21 documented as of this encounter
--- OUTSIDE RECORDS SUMMARY | 2025-02-03 08:18 | XMS_ITS | Encounter Summary ---
Author Organization [facility] Address [address] [place] [address] Care Team Providers Care Barrel Tester And Drainer Name Role Phone Sugey Rice MD Primary Care Provider [phone] Encounter Details Date Type Department Care Team (Late Contact Info) Description 09/23/2024 Scanned Document [facility] [address] [phone] Gurjit Steele MD [address] [place] [address] Social History Tobacco Use Types Packs/Day Years [...] 10:00 AM EDT [facility] Visit [facility] [address] [place] [address] Gurjit Steele MD [address] [facility] [address] [place] [address] 06/29/2025 10:30 AM EDT Office Visit [facility] [address] [place] [address] Josef Loya MD [address] [place] [address] documented as of this encounter Visit Diagnoses Not on filedocumented in this encounter Care Teams Barrel Tester And Drainer Relationship Specialty Start Date End Date Sugey Rice MD [address] [place] [address] [address] [place] [address] PCP - General Family Medicine 05/05/23 documented as of this encounter
--- OUTSIDE RECORDS SUMMARY | 2025-02-03 08:18 | XMS_ITS | Clinical Summary ---
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); Stiffness of left hand joint from Last 3 Months Social History Tobacco [...] AM EDT Office Visit [facility] [address] [place] [address] Gurjit Steele MD [address] [address] 06/29/2025 10:30 AM EDT Office Visit [facility] [place] [address] [place] [address] Josef Loya MD [address] [place] [address] Health Maintenance Due Date Last Done Comments Hepatitis C Virus Screening 1955 DTaP/Tdap/Td Vaccines (1 - Tdap) 1974 Mammogram 1995 Colonoscopy 2000 Pneumococcal Vaccines 50+ (1 of 1 - PCV) 2005 Zoster (Shingles) Vaccine (1 of 2) 2005 DXA Bone Density (Females,Ages 65 and older) 2020 COVID-19 Vaccine ( season) 2025 08/11/2024, 08/02/2023, 08/03/2022, Additional history exists RSV Vaccine 60 years and older and Patients (1 - 1-dose 75+ series) 2030 Influenza Vaccine Completed 08/03/2024, , 07/20/2023, Additional history exists Hepatitis B Vaccines Aged Out No long er eligible based on patient's age to complete this topic Medical Devices Explanted Type Area Campground Hand Device Identifier Shelf Expiration Date Model / Serial / Lot [id number] Stent Ureteral 6fr 26cm Taper Tip Bldr Benjie Lp Contour Hdr+ - [id number] Implanted:Qty : 1 on 03/29/2024 by Josef Loya MD at [facility] Explanted:Qty : 1 on 04/07/2024 by Josef Loya MD Stent Right: Ureter [employer] [id number] 11/30/2026 [id number] Care Teams Stummel Selector Relationship Specialty Start Date End Date Sugey Rice MD [address] [facility] [address] [place] [address] PCP - General Family Medicine 05/05/23
--- OUTSIDE RECORDS SUMMARY | 2025-02-03 08:18 | XMS_ITS | Clinical Summary ---
Author Organization [facility] [place], Address [address] [place] [address] [place] [address] Phone Care Team Providers Care Bookkeeping Service Sales Agent Name Role Phone Sugey Rice MD Primary Care Provider [phone] Allergies Active Allergy Reactions Criticality Noted Date [...] Only [facility] [address] [place] [address] Lissett Zacarias [place] 12/10/2024 2:00 PM EST Office Visit [facility] [address] [place] [address] Leonardo Stovall DO Stage 3a chronic kidney disease (HCC) (Primary Dx); Hypertensive heart and chronic kidney disease without heart failure, with stage 1 through stage 4 chronic kidney disease, or unspecified chronic kidney disease; Uric acid renal calculus; Essential hypertension 12/10/2024 Documentation Only [facility] [address] [place] [address] Lissett Zacarias MA from Last 3 Months Immunizations Name Administration [...] Kidney disease Sibling 1 Son - high hardboard grinder Cancer Sibling 2 brother-SCC Relation Status Comments [...] Visit [facility] [place] - [address] [facility] [place] [phone] Leonardo Stovall DO [address] [place] [address] [place] [address] Health Maintenance Due Date Last Done Comments Breast Cancer Screening 1955 Colorectal Cancer Screening: Annual FOBT 2004 Colorectal Cancer Screening: Colonoscopy 2004 Colorectal Cancer Screening: Sigmoidoscopy 2004 Pneumococcal Vaccine: 65+ Years Completed 07/17/2022, 07/19/2021, 07/19/2020 Influenza Vaccine Completed 08/03/2024, , 07/28/2021, Additional history exists Hepatitis B Vaccine Aged Out No longe r eligible based on patient's age to complete this topic Insurance PENDING SALE TO [facility] MEDICARE Care Teams Bookkeeping Service Sales Agent Relationship Specialty Start Date End Date Sugey Rice MD [address] [place] [phone] PCP - General Family Medicine 09/04/21
--- OUTSIDE RECORDS SUMMARY | 2025-02-03 08:18 | XMS_ITS | Encounter Summary ---
Author Organization [facility] Address [address] [place] [address] Phone Care Team Providers Care Cylinder Batcher Name Role Phone Sugey Rice MD Primary Care Provider [phone] Encounter Details Date Type Department Care Team (Late Contact Info) Description 07/25/2023 Documentation Only [facility] [place], [address] [place] [phone] Leonardo Stovall DO [address] [facility] [place] [address] Social History Tobacco Use Types [...] [facility] [place] [facility] [place] [address] [place] [phone] Leonardo Stovall DO [address] [facility] [place] [address] documented as of this encounter Visit Diagnoses Not on filedocumented in this encounter Care Teams Cylinder Batcher Relationship Specialty Start Date End Date Sugey Rcie MD [address] [phone] PCP - General Family Medicine 09/04/21 documented as of this encounter
--- OUTSIDE RECORDS SUMMARY | 2025-02-03 08:18 | XMS_ITS | Encounter Summary ---
Author Organization [facility] Address [address] [place] [address] Care Team Providers Care Vessel Liner Name Role Phone Sugey Rice MD Primary Care Provider [phone] Encounter Details Date Type Department Care Team (Late st Contact Info) Description 02/01/2025 Telephone Gastroenterology - [address] [place] [phone] Nano Brown MD [address] [place] [address] Social History Tobacco Use Types Packs/Day Years [...] as of this encounter Progress Notes * Hannah Morejon - 02/01/2025 1:41 PM EDT Pt calling to let [place] know that she spoke with her insurance and procedure will be covered. I let ptknow she is all set. documented in this encounter Plan of Treatment Not on file documented as of this encounter Visit Diagnoses Not on filedocumented in this encounter Care Teams Vessel Liner Relationship Specialty Start Date End Date Sugey Rice MD [address] [phone] PCP - General Family Medicine 10/07/24 documented as of this encounter
--- OUTSIDE RECORDS SUMMARY | 2025-02-03 08:18 | XMS_ITS | Encounter Summary ---
Author Organization [facility] Address [address] [place] [address] Care Team Providers Care Community Development Planner Name Role Phone Sugey Rice MD Primary Care Provider [phone] Encounter Details Date Type Department Care Team (Late st Contact Info) Description 02/01/2025 10:10 AM EDT Lab Draw Station - [address] [facility] [place] [phone] Irritable bowel syndrome without diarrhea Social History Tobacco Use Types Packs/Day Years [...] as of this encounter Progress Notes * Nano Brown MD - 02/01/2025 10:10 AM EDT Please let patient know that labs show a mild anemia- although I do not have a baseline blood countto know if this is a change for her. Is she having anymore rectal bleeding? If so we can move up her colonoscopy (she is due in June). documented in this encounter Plan of Treatment Not on file documented as of this encounter Procedures Procedure Name Priority Date/Time Associated Diagnosis Comments CBC WITH AUTO DIFFERENTIAL Routine 02/01/2025 10:15 AM EDT Irritable bowel syndrome without diarrhea CBC AND DIFFERENTIAL Routine 02/01/2025 10:15 AM EDT Irritable bowel syndrome without diarrhea documented in this encounter Results * (ABNORMAL) CBC auto differential (02/01/2025 10:15 AM EDT) [facility] WBC 6.4 4.8 - 10.8 K/mcL LAB [...] 02/01/2025 11:46 AM [facility] Basophils Absolute 0.04 0.00 - 0.20 K/mcL LAB HEMETOLOGY METHOD 02/01/2025 11:46 AM EDT [facility] Immature Granulocytes Absolute 0.02 0.00 - 0.03 K/mcL LAB HEMETOLOGY METHOD 02/01/2025 11:46 AM EDT [facility] Blood Venous blood specimen / Unknown Venipuncture / Unknown 02/01/2025 10:15 AM EDT 02/01/2025 11:33 AM EDT us Nano Brown MD LAB BLOOD ORDERABLES Final Res ult [facility] [address] [place] [address], documented in this encounter Visit Diagnoses Diagnosis Irritable bowel syndrome without diarrhea documented in this encounter Care Teams Community Development Planner Relationship Specialty [place] [address] [place] [phone] PCP - General Family Medicine 10/07/24 documented as of this encounter
--- OUTSIDE RECORDS SUMMARY | 2025-02-03 08:18 | XMS_ITS | Clinical Summary ---
Author Organization [facility] Address [address] [place] [address] Care Team Providers Care Security Technician Name Role Phone Pcp, No MD Primary [...] capsule Take by mouth. 2 Active cartilage-colla [id number] 40-5-3.3 mg tablet daily. Active lisinopriL (PRINIVIL) [...] Zoster Vaccines Completed 05/08/2022, 01/19/2019 Pneumococcal Vaccine, 50+ Years Completed 07/17/2022, 07/19/2021, 07/19/2020 HPV Vaccines Aged Out No longer eligi ble based on patient's age to complete this topic Hepatitis A Vaccines Aged Out No long er eligible based on patient's age to complete this topic Meningococcal Vaccine Aged Out No heidi hi eligible based on patient's age to complete this topic Insurance [facility] MEDICARE PART A & B Care Teams Security Technician Relationship Specialty Start Date End Date Gloria Zuñiga MD [address] [place] [address] PCP - General Internal Medicine 07/02/22
--- NOTE | 2025-02-03 08:22 | MHC.OFFVIS ---
Vital Signs 02/03/25 08:24 Height 5 ft 6 in Weight 272 lb 4.334 oz BMI 43.9 BP 122/60 Blood Pressure Location Rt brachial Position Sitting Pulse 52 Pulse Source Pulse Oximeter Pulse Oximetry (%) 98 Oxygen Delivery Method Room Air Intake Visit Reasons: f/u to sleep study Allergies amoxicillin Allergy (Verified 02/03/25 08:28) hives ciprofloxacin Allergy (Verified 02/03/25 08:28) Hives latex Allergy (Verified 02/03/25 08:28) vaginal itching HPI Comments Details: The patient is a 69 year woman presenting with an abnormal pulmonary function study and CT scan. Apparently the patient has been having worsening shortness of breath. She has a rescue inhaler. She does use it as needed. Typically less than 2 times a week. She did undergo pulmonary function studies at [facility] which I personally reviewed. She appeared to have a mild obstruction consistent with obstructive airway disease in addition to that she had a mild restrictive ventilatory defect consistent with restrictive lung. She also had a mild decrease in the diffusing capacity but corrected to normal when corrected for the alveolar volume that suggest mainly extrinsic cause for the diffusion impairment. The patient also underwent a CT scan after having the abnormal pulmonary function study which I also personally reviewed. It appeared that her trachea appeared to be flat in a little bit consistent with tracheomalacia. This is mainly the mid and distal part of the trachea. In addition to that she has small subcentimeter pulmonary nodules have any follow-up in a year's time. No significant interstitial lung disease except she did have some areas of scarring primarily in the right middle lobe area and also at the bases just some areas of atelectasis and some reticular changes. Although no overt interstitial lung disease appreciated. And no significant ground-glass opacities appreciated. She was feeling much better prior to the appointment but then about a week ago she was eating popcorn and she aspirated some pop according to her lungs. She was coughing a lot she has been coughing significant amount of lately. Last night she did a little better but the night before she did have a hard time sleeping because of cough. She did have some codeine that she could take that helped relieve some of the symptoms. She was able to remove some specks out of the airways which she noticed some specks in her sputum. In the office she does have some wheezing right more than left. Will have her get an x-ray to see if there is any significant collapsibility atelectasis of the lungs from any foreign body. In the meantime though will go ahead and start her on inhaled cortical steroid. And although she has wheezing will avoid systemic steroids since she just recently had surgery of her hand. The patient also provide an aerobika CPT device to try to use it multiple times a day to try to help her with bronchopulmonary hygiene and mucus clearance and hopefully removal of any residual foreign body in her lungs. She will undergo a chest x-ray to assess for any significant findings. If she does have evidence of pneumonia I will send some antibiotics in the pharmacy as well. If the patient shows no improvement of her symptoms then a evaluation with bronchoscopy may be warranted just to look for any persistent foreign bodies. However, will hopefully avoid any semi invasive procedures she is able to clear up her own secretions at this time. 11/25/2024 the patient is here for pulmonary follow-up visit. The patient overall has been feeling a lot better. She ended up in the hospital after being diagnosed with AFib flutter. This is on the day of the bronchoscopy. Therefore we had to postpone the bronchoscopy initially. She did have a CT scan of the chest demonstrating a pneumonia on the right lower lobe consistent with an obstruction. Therefore once her cardiac status was stable she did undergo a bronchoscopy and a foreign body was removed in this case it was a corn popcorn kernel. The patient is feeling a lot better. She has use still using the Wixela twice a day. Will see about weaning her office since her breathing is better. She does complaint of some burning sensation in the substernal is area when she is exercising. I encourage her to not exercises hard and we did reach out to Cardiology in order for her to have a stress test. She also has atrial flutter and will likely need cardioversion at some point. The patient does have also some evidence of pulmonary hypertension. Explained to his multifactorial. The patient does have daytime drowsiness. Her Capay score is 11/24. She may have a component of untreated sleep apnea that is likely contributing to the pulmonary hypertension. In addition to that the stress of having the pneumonia the obstruction from the aspiration and also the a flutter are also contributing. Hopefully these entities will subside and she can feel better. In the meantime will give her 3 days of Lasix that she can start once she is ready to try to remove some fluid off her body. 02/03/2025 the patient is here for pulmonary follow-up visit. The patient has a lot of concerns. She did start the CPAP therapy and CPAP therapy has been affecting beneficial. AHI is down to 0.4. She is using more than 4 hours a night. She is that the nasal pillows, P 10 is working well although she still has a little air leakage through her mouth. She benefits from a chinstrap. In addition to that she is getting some dryness in her mouth and along with a chinstrap the patient will benefit from heated tubing. Will request that from her [employer], like [employer]. In the meantime the patient has been working with Cardiology. She does have in arrhythmia and does require a calcium channel addie. She has been noticing some low heart rates in the 30s at nighttime and also has been having some baseline heart rates in the low 50s. Although we did go for a walking heart rate did increase to 65 beats per minute quickly. She will continue taking the calcium channel addie and needs to follow-up closely with Cardiology. In addition to that she had some bleeding rectal bleeding after starting the Eliquis. Her hemoglobin dropped from 13 g to 10 g. she needs to go back on the Eliquis because of the risks some stroke. Will have her recheck her hemoglobin again and check her iron before she does so. Hopefully will know by today. Today she is also going to undergo a CT scan of the coronary arteries to assess for any coronary artery disease. The patient is also wondering about pulmonary hypertension. We did talk about the different ossifications. She likely has W HI class 2 and 3. She is going to have an echocardiogram rescheduled to be done closer to 3-4 months from now. She understands that the ECHO is only an estimate of the pressures. From a breathing standpoint she is doing good she has not required any inhalers. And denies any aspirations. [facility] Medical History (Updated 02/03/25 @ 20:48 by Yousuf Thorpe MD) Iron deficiency anemia Dyspnea Atrial flutter Pulmonary hypertension YOSHI (obstructive sleep apnea) Chronic restrictive lung disease Asthma Pulmonary nodules Social History Household Members: Spouse and Children Housing: House Do you presently have visiting nurse or other home services: No Patient Tobacco Use Status: Never used Tobacco service: No Review of Systems Const Reports daytime sleepiness, Reports fatigue and Denies fever(s) Eyes Reports no additional complaints ENT Reports nasal congestion Card Reports chest pain, Reports leg edema and Reports dyspnea on exertion Resp Reports chest congestion, Reports cough, Reports dyspnea on exertion and Denies wheezing GI Reports as per HPI and Reports hematochezia Musc Reports no additional complaints Skin/Breast Denies rash Endo Reports fatigue Devin/Lymph Reports no additional complaints Aller/Immun Denies wheezing Physical Exam Vital Signs: Last Vital Signs Pulse 52 02/03/25 08:24 BP 122/60 02/03/25 08:24 Pulse Ox 98 02/03/25 08:24 Oxygen Delivery Method Room Air 02/03/25 08:24 BMI result Body Mass Index 43.9 Last Vital Signs Temp 98.0 F 10/31/24 08:00 Pulse 80 10/31/24 08:00 Resp 18 10/31/24 08:00 BP 119/67 10/31/24 08:00 Pulse Ox 95 10/31/24 08:00 O2 Del Method Room Air 10/31/24 08:00 BMI result Body Mass Index 43.4 Const General: comfortable HEENT Head: Yes normocephalic Neck Neck: Yes supple Chest Chest palpation & inspection: normal inspection of the chest Resp Effort & Inspection: normal respiratory effort Auscultation: clear to auscultation bilaterally, no crackles, no rales and no rhonchi Cardio Heart sounds: S1 normal heart sound present and S2 normal heart sound present GI Palpation (GI): Soft to palpation Skin General skin exam: no rashes or lesions noted Extrem General: No clubbing, No cyanosis and Yes edema Results Reviewed Results Reviewed: Pwesonally reviewed CT chest from [facility] with pulmonary nodules, minimal areas of atelectasis and scarring, but no overt ILD PFTs, mild mix obstructive/restrictive ventilatory defect Assessment & Plan Assessment & Plan (1) Asthma: Code(s): J45.909 - Unspecified asthma, uncomplicated Category: Medical Qualifiers: Asthma complication type: uncomplicated Asthma persistence: intermittent Asthma severity: mild Qualified Code(s): J45.20 - Mild intermittent asthma, uncomplicated (2) Chronic restrictive lung disease: Comment: multifactorial Code(s): J98.4 - Other disorders of lung Category: Medical (3) YOSHI (obstructive sleep apnea): Code(s): G47.33 - Obstructive sleep apnea (adult) (pediatric) Category: Medical (4) Pulmonary hypertension: Code(s): I27.20 - Pulmonary hypertension, unspecified Category: Medical (5) Pulmonary nodules: Code(s): R91.8 - Other nonspecific abnormal finding of lung field Category: Medical (6) Aspiration into airway: Comment: s/p removal via bronchoscopy Code(s): T17.908A - Unspecified foreign body in respiratory tract, part unspecified causing other injury, initial encounter Category: Medical Qualifiers: Encounter type: initial encounter Qualified Code(s): T17.908A - Unspecified foreign body in respiratory tract, part unspecified causing other injury, initial encounter (7) Dyspnea: Code(s): R06.00 - Dyspnea, unspecified Category: Medical Qualifiers: Dyspnea type: dyspnea on exertion Qualified Code(s): R06.09 - Other forms of dyspnea (8) Iron deficiency anemia: Code(s): D50.9 - Iron deficiency anemia, unspecified Category: Medical Qualifiers: Iron deficiency anemia type: other iron deficiency Qualified Code(s): D50.8 - Other iron deficiency anemias Plan JOSELUIS as needed provided Aerobika to use 2-4 times aday continue APAP, needs climate tubing and chin strap, using [employer], DME F/U with cardiology re: coronary angio CT rate control Needs to F/U with GI for GIB and anemia. Now off Eliquis. She needs to D/W Cardiology/GI/PCP when she should restart Eliquis start FeSO4 for now Cardiology to repeat ECHO F/U 3 months Orders: Orders Ferritin Today R06.00 - Dyspnea, unspecified, R07.9 - Chest pain, unspecified Complete Blood Count Auto Diff Today R06.00 - Dyspnea, unspecified Iron Liver Tissue Today R06.00 - Dyspnea, unspecified Coding Level of Care Code Est Pt Level 5 (04998) Diagnoses Mild intermittent asthma without complication J45.20 Asthma complication type: uncomplicated Asthma persistence: intermittent Asthma severity: mild Chronic restrictive lung disease J98.4 YOSHI (obstructive sleep apnea) G47.33 Pulmonary hypertension I27.20 Pulmonary nodules R91.8 Aspiration into airway, initial encounter T17. Encounter type: initial encounter Dyspnea on exertion R06.09 Dyspnea type: dyspnea on exertion Other iron deficiency anemia D50.8 Iron deficiency anemia type: other iron deficiency Time Spent (min) 60
[2025-02-03 08:24] VITALS: BP 122/60; PULSE 52; O2SAT 98; BMI 43.9
== END 2025-02-03 09:04 | disposition home or self-care (01) ==
PROVIDERS: PCP Family Medicine; Visit Provider Hospitalist
DX: J45.20 Mild intermittent asthma, uncomplicated (principal); J98.4 Other disorders of lung; G47.33 Obstructive sleep apnea (adult) (pediatric); I27.20 Pulmonary hypertension, unspecified; R91.8 Other nonspecific abnormal finding of lung field; T17.908A Unspecified foreign body in respiratory tract, part unspecified causing other injury, initial encounter; R06.09 Other forms of dyspnea; D50.8 Other iron deficiency anemias
CPT/HCPCS: 99215

== ENCOUNTER → 2025-02-03 08:10 | Outpatient (BNVA) | payer MEDICARE, OTHER, SELFPAY | PROVIDERS: PCP Family Medicine; Visit Provider Hospitalist | DX: G47.33 Obstructive sleep apnea (adult) (pediatric) (principal); J45.20 Mild intermittent asthma, uncomplicated; J98.4 Other disorders of lung; I27.20 Pulmonary hypertension, unspecified; R91.8 Other nonspecific abnormal finding of lung field; R06.09 Other forms of dyspnea; D50.8 Other iron deficiency anemias; T17.908A Unspecified foreign body in respiratory tract, part unspecified causing other injury, initial encounter; X58.XXXA Exposure to other specified factors, initial encounter; Y93.9 Activity, unspecified; Y92.9 Unspecified place or not applicable; Y99.9 Unspecified external cause status; Z99.89 Dependence on other enabling machines and devices | CPT/HCPCS: 99212 ==

== ENCOUNTER 2025-03-03 12:12 | Outpatient (AMB) | payer MEDICARE, OTHER, SELFPAY ==
--- NOTE | 2025-03-03 12:31 | MHC.OFFVIS ---
Vital Signs 03/03/25 12:32 Height 5 ft 6 in Weight 268 lb 15.423 oz BMI 43.4 BP 126/78 Blood Pressure Location Lt brachial Position Sitting Pulse 53 Intake Visit Reasons: has few concerns re: test results/ per NS appt Intake Note: Follow-up has a few ? feeling ok Liner Worker Required: No Allergies amoxicillin Allergy (Verified 02/03/25 08:28) hives ciprofloxacin Allergy (Verified 02/03/25 08:28) Hives latex Allergy (Verified 02/03/25 08:28) vaginal itching Medication List - Last Reconciled 03/03/25 by Darren Garrett MD apixaban (Eliquis) 5 mg PO BID cholecalciferol (vitamin D3) 50 mcg PO BID diltiazem HCl CD (Cardizem CD) 120 mg See Protocol PO DAILY ferrous sulfate (Feosol) 325 mg PO BID 30 days levothyroxine 75 mcg PO DAILY@0600 losartan 50 mg PO DAILY omeprazole 40 mg PO DAILY@0630 potassium citrate ER 20 mEq PO TID pravastatin 10 mg PO BEDTIME HPI Comments Details: Danita comes for follow-up. She says intermittently every 2 weeks she was slow heart rate with heart rate in the upper 30s and 40s. She feels tired that day. She then tries to exercise and bring her heart rate up to 50 beats per minute. Her smart watch is not able to recorder EKG during these episodes. She denies any prolonged fast heart rate irregular heartbeat. She has had no lightheadedness or syncope. She also had an episode of bleeding and underwent a colonoscopy at [facility] in [place] and told that she was not having any significant pathology. She had hemorrhoids. She has not. She is back on Eliquis therapy at this point time. She was worried about the slow heart rate episodes. She has not had any symptoms. She is using her CPAP regularly. [facility] Medical History Iron deficiency anemia Dyspnea Atrial flutter Pulmonary hypertension YOSHI (obstructive sleep apnea) Chronic restrictive lung disease Asthma Pulmonary nodules Social History Household Members: Spouse and Children Housing: House Do you presently have visiting nurse or other home services: No Patient Tobacco Use Status: Never used Tobacco service: No Review of Systems Const Denies chills, Denies fatigue, Denies fever(s), Denies frequent falls, Denies weakness, Denies weight gain and Denies weight loss ENT Denies dizziness Card Denies chest pain, Denies leg edema, Denies lightheadedness, Denies palpitations, Denies dyspnea, Denies dyspnea on exertion, Denies orthopnea and Denies other (loss of consciousness) Resp Denies cough, Denies dyspnea and Denies dyspnea on exertion GI Denies hematochezia and Denies change in stool character Musc Denies abnormal gait, Denies muscle weakness, Denies numbness, Denies radiating pain into limb and Denies tingling Neuro Denies abnormal gait, Denies dizziness, Denies frequent falls, Denies numbness, Denies tingling and Denies weakness Endo Denies fatigue and Denies palpitations Physical Exam Vital Signs: Last Vital Signs Pulse 53 03/03/25 12:32 BP 126/78 03/03/25 12:32 BMI result Body Mass Index 43.4 Const General: cooperative, comfortable, no acute distress, alert and awake Nutritional Appearance: obese Orientation/consciousness: patient oriented x3 Limitations: no limitations Neck Neck: Yes trachea midline, Yes supple and Yes no JVD Resp Effort & Inspection: normal respiratory effort Auscultation: clear to auscultation bilaterally Cardio Jugular venous distension: no JVD Rate: regular rate Rhythm: regular rhythm Heart sounds: S1 normal heart sound present, S2 normal heart sound present, no click, no gallops, no murmurs and no rubs GI Auscultation: normal bowel sounds Skin General skin exam: no rashes or lesions noted Neuro General: patient oriented x3 and no focal motor deficits Extrem General: Yes no clubbing, cyanosis or edema Assessment & Plan Assessment & Plan (1) Bradycardia: Code(s): R00.1 - Bradycardia, unspecified Category: Medical Plan: Self reported bradycardia with symptoms. At this point time this is unverified. Could be related to extra systoles. I have advised her to get an alternative EKG device to monitor these episodes. Meanwhile I have advised to stop Cardizem therapy. Advised to monitor heart rate. Also advised to call me with any significant palpitation irregular heartbeat. At this point time I do not think she needs a pacemaker. I would hold off on Holter monitoring at this point time and advised her to monitor EKGs by herself. (2) Atrial flutter: Code(s): I48.92 - Unspecified atrial flutter Category: Medical Qualifiers: Atrial flutter type: unspecified Qualified Code(s): I48.92 - Unspecified atrial flutter Plan: Paroxysmal atrial flutter, has remained suppressed. Hold off on Cardizem therapy as above due to self-reported episodes of bradycardia. Had episode of lower GI bleed with no pathology. Need to obtain GI consult for recommendations as well as colonoscopy report. Meanwhile she was not had any recurrent bleed. Continue Eliquis therapy. Continue iron therapy to improve her anemia. If there is recommendations to stop oral anticoagulation therapy I will refer to Watchman device. Provided her with a literature. (3) Pulmonary hypertension: Code(s): I27.20 - Pulmonary hypertension, unspecified Category: Medical Plan: Pulmonary hypertension most likely related to untreated obstructive sleep apnea as well as obesity and possibly in the acute setting related to her pulmonary issues. Follow-up limited echocardiogram to evaluate for improvement in pulmonary pressures. No signs or symptoms of heart failure at this point time. Will follow up in the clinic in 3 months time, sooner p.r.n.. Thank you for allowing me to partake in her care Orders: Orders CA Echo Limited Today I27.20 - Pulmonary hypertension, unspecified Medications: Discontinued diltiazem HCl CD (Cardizem CD) Discontinued Reason: Doctor's Order 120 mg See Protocol PO DAILY 90 caps 3RF Coding Level of Care Code Est Pt Level 4 (97103) Complex EM visit Add On G2211 Diagnoses Bradycardia R00.1 Atrial flutter, unspecified type I48.92 Atrial flutter type: unspecified Pulmonary hypertension I27.20
[2025-03-03 12:32] VITALS: BP 126/78; PULSE 53; BMI 43.4
--- OUTSIDE RECORDS SUMMARY | 2025-03-03 15:05 | XMS_ITS | Encounter Summary ---
Author Organization Formerly [facility] Address [address] [place] [address] Care Team Providers Care Virtual Recruiter Name Role Phone Sugey Rice MD Primary Care Provider [phone] Encounter Details Date Type Department Care Team (Late st Contact Info) Description 05/29/2023 Scanned Document Orthopedic [address] [phone] Leif Reed MD [address] [place] [id number] Social History Tobacco Use Types Packs/Day Years Used Date Smoking Tobacco: Never Assessed Comments Unknown Sex and Gender Information Value Date Recorded Sex Assigned at Female 02/23/2024 1:19 PM EDT Legal Sex Female 10:14 AM EDT Gender Identity Female 02/23/2024 1:19 PM EDT Sexual Orientation Heterosexual (straight) 02/22 1:19 PM EDT documented as of this encounter Plan of Treatment Upcoming Encounters Date Type Department Care Team (Late Contact Info) Description 03/23/2025 10:00 AM EDT [facility] [address] [place] [id number] Gurjit Steele MD [address] [place] [address] 06/29/2025 10:30 AM EDT Office Visit [facility] [place] [address] [place] [address] Josef Loya MD [address] [place] [address] documented as of this encounter Visit Diagnoses Not on filedocumented in this encounter Care Teams Virtual Recruiter Relationship Specialty Start Date End Date Sugey Rice MD [address] [address] PCP - General Family Medicine 05/05/23 documented as of this encounter
--- OUTSIDE RECORDS SUMMARY | 2025-03-03 15:05 | XMS_ITS | Encounter Summary ---
Author Organization [facility] Address [address] [place] [address] Phone Care Team Providers Care Performance Makeup Artist Name Role Phone Sugey Rice MD Primary Care Provider [phone] Encounter Details Date Type Department Care Team (Late Contact Info) Description 07/22/2023 Documentation Only [facility], [address] [place] [phone] Leonardo Stovall DO [address] [place] [address] Social History Tobacco Use Types [...] Visit [facility] [place] [address] [place] [phone] Leonardo Stovall DO [address] [place] [address] documented as of this encounter Visit Diagnoses Not on filedocumented in this encounter Care Teams Performance Makeup Artist Relationship Specialty Start Date End Date Sugey Rice MD [address] [phone] PCP - General Family Medicine 09/04/21 documented as of this encounter
--- OUTSIDE RECORDS SUMMARY | 2025-03-03 15:05 | XMS_ITS | Encounter Summary ---
Author Organization [facility] Address [address] [place] [address] Phone Care Team Providers Care Ticketing Agent Name Role Phone Sugey Rice MD Primary Care Provider [phone] Reason for Visit * Reason Comments Med Refill Encounter Details Date Type Department Care Team (Late st Contact Info) Description 10/24/2024 Refill [facility] [address] [place] [phone] Leonardo Stovall DO [address] [place] [address] Social History Tobacco Use Types [...] Visit [facility] [place] [address] Leonardo Stovall DO [address] [place] [address] documented as of this encounter Visit Diagnoses Not on filedocumented in this encounter Care Teams Ticketing Agent Relationship Specialty Start Date End Date Sugey Rice MD [address] [phone] PCP - General Family Medicine 09/04/21 documented as of this encounter
--- OUTSIDE RECORDS SUMMARY | 2025-03-03 15:05 | XMS_ITS | Clinical Summary ---
Author Organization [facility] 299 [facility] Address [address] [place] [address] Phone Care Team Providers Care Marketing And Communications Officer Name Role Phone Sugey Rice MD Primary Care Provider [phone] Allergies Active Allergy Reactions Criticality Noted Date [...] 90 each 3 5 12/10/19 26 Active levothyroxine (SYNTHROID, LEVOTHROID) 75 mcg tablet Take 1 tablet (75 mcg total) by mouth 1 (one) time each day. 4 Active [id number] b-C (Plenvu) 140-9-5.2 gram powder in packet, sequentialIndic ations:Colon cancer screening Take 3 each by mouth 2 (two) times a day for 1 day. 3 packet 5 02/05/20 Active Problems Problem Noted Date Diagnosed Date Anemia 02/09/2025 Hypothyroidism 02/09/2025 HTN (hypertension) 02/09/2025 Gastroesophageal reflux disease 02/09/2025 Dysrhythmias 02/09/2025 Encounters Date Type Department Care Team Description 02/09/2025 11:04 AM EDT Anesthesia Event [facility] [address] [place] [phone] Kenya Patricio MD 02/09/2025 9:22 AM EDT - 02/09/2025 11:59 PM EDT Hospital Encounter [facility] [address] [place] [phone] Nano Brown MD Barnes, Tyanna R, CRNA Kriz, Petra, MD Rectal bleeding Discharge Disposition: Home or Self Care 02/07/2025 Telephone Gastroenterology [facility] 175 [facility] [address] [place] [phone] Rosa M Langley LPN Anticoagulation (Colonoscopy on 02/09/[address] Brown) 02/03/2025 9:50 AM EDT Lab Draw Station - [address] [phone] Dyspnea (Primary Dx); Chest pain, unspecified; Abnormal blood chemistry 02/03/2025 Telephone Gastroenterology - [address] [place] [phone] Macie Harper [place] 02/01/2025 10:10 AM EDT Lab Draw Station - [address] [phone] Irritable bowel syndrome without diarrhea 02/01/2025 Telephone Gastroenterology - [address] [place] [phone] Nano Brown MD 02/01/2025 Telephone Gastroenterology - [address] [place] [phone] Nano Brown MD 02/01/2025 Telephone Gastroenterology - [address] [place] [phone] Macie Harper [place] 01/31/2025 Telephone Gastroenterology - [address] [place] [phone] Nano Brown MD 12/10/2024 9:00 AM EST Office Visit Gastroenterology - [address] [place] [phone] Nano Brown MD Irritable bowel syndrome without [...] drink = 0.6 oz pur e alcohol) Interpersonal Safety Answer Date Record ed Physical Abuse 02/09/2025 Verbal Abuse 02/09/2025 Comments Unknown Sex and Gender Information Value Date Recorded Sex Assigned at Female 02/08/2025 1:26 PM EDT Legal Sex Female 10:43 AM EST Gender Identity Female 02/08/2025 1:26 PM EDT Sexual Orientation Not on file Occupation Industry Job Start Date Job End Date retired Not on file Not on file Not on file Obstetrics History Last Filed Vital Signs Vital Sign Reading Time Taken Comments Blood Pressure 138/69 02/09/2025 11:38 AM EDT Pulse 63 02/09/2025 11:38 AM EDT Temperature 36.8 ??C (98.3 ??F) 02/09/2025 11:18 AM E DT Respiratory Rate 18 02/09/2025 11:38 AM EDT Oxygen Saturation 95% 02/09/2025 11:38 AM EDT Inhaled Oxygen Concentration - - Weight 118 kg (260 lb) 02/09/2025 10:14 AM EDT Height 167.6 cm (5' 6 ) 02/09/2025 10:14 AM EDT Body Mass Index 41.97 02/09/2025 10:14 AM EDT Plan of Treatment Health Maintenance Due Date Last Done Comments Cholesterol Screening (Lipid Panel) 10/08/2024 Depression Screening 10/08/2024 Hepatitis C Screening 10/08/2024 Medicare Annual Wellness Visit 10/08/2024 Social Influencers of Health Screening 10/08/2024 COVID-19 Vaccine ( season) 2025 08/11/2024, 08/02/2023, 08/03/2022, Additional history exists Hypertension/CHF/CAD Annual BMP Blood Test 03/22/2025 03/22/2024, 03/03/2024 Falls Risk Assessment 02/09/2026 02/09/2025 Breast Cancer Screening 11/04/2026 11/04/2024 Osteoporosis Screening (Bone Density Screening) 10/30/2030 10/30/2020 DTaP,Tdap,and Td Vaccines (3 - Td or Tdap) 10/24/2033 10/24/2023, 04/17/2012 Colorectal Cancer Screening: Colonoscopy 02/09/2035 02/09/2025, 07/04/2020 Zoster Vaccines Completed 05/08/2022, 0303/2019, 07/19/2014 Pneumococcal Vaccine: 50+ Years Completed 07/17/2022, 07/19/2021, 07/19/2020 RSV Immunization Adult Patients Completed 07/11/2023 Influenza Vaccine Completed 08/03/2024, , 08/05/2022, Additional history exists HIB Vaccines Aged Out [...] age to complete this topic Meningococcal B Vaccine Aged Out No l onger eligible based on patient's age to complete this topic RSV Immunization Patients Under 20 months Aged Out No longer eligible based on patient's age to complete this topic Varicella Vaccines Aged Out No longer eligible based on patient's age to complete this topic Procedures Procedure Name Priority Date/Time Associated Diagnosis Comments COLONOSCOPY Routine 02/09/2025 11:17 AM EDT Rectal bleeding IRON AND TIBC Routine 02/03/2025 10:08 AM EDT Dyspnea Chest pain, unspecified Abnormal blood chemistry COMPLETE BLOOD COUNT Routine 02/03/2025 10:08 AM EDT Dyspnea Chest pain, unspecified Abnormal blood chemistry FERRITIN Routine 02/03/2025 10:08 AM EDT Dyspnea Chest pain, unspecified Abnormal blood chemistry CBC WITH AUTO DIFFERENTIAL Routine 02/01/2025 10:15 AM EDT Irritable bowel syndrome without diarrhea CBC AND DIFFERENTIAL Routine 02/01/2025 10:15 AM EDT Irritable bowel syndrome without diarrhea from Last 3 Months Results * COLONOSCOPY Anesthesia - MAC; [facility] ENDOSCOPY (02/09/2025 11:17 AM EDT) Anatomical Region Laterality Modality Other 02/09/2025 10:5 6 AM EDT Impressions 02/09/2025 11:19 AM EDT - The examined portion of the ileum was normal. ? - Internal hemorrhoids. ? - The entire examined colon is normal. ? - No specimens collected. Recommendation: ?- Repeat colonoscopy in 10 years for screening ? purposes. ? - Resume Eliquis (apixaban) at prior dose today. Narrative 02/09/2025 11:19 AM EDT [facility] GI Patient Name: Danita Randle Procedure Date: 02/09/2025 10:56 AM Date of : 1955 Age: 69 Gender: Female Note Status: Finalized Attending MD: Nano Brown MD, Procedure Date No Time: 02/09/2025 Procedure: ? Colonoscopy Indications: ? Rectal bleeding Providers: ? Nano Brown MD Referring MD: ?Sugey Rice MD Medicines: ? Propofol per Anesthesia Complications: ? No immediate complications. Estimated Blood Loss: ? Estimated blood loss: none. Procedure: ? Pre-Anesthesia Assessment: ? - ASA Grade Assessment: III - A patient with severe ? systemic disease. ? After I obtained informed consent, the scope was ? passed under direct vision. Throughout the procedure, ? the patient's blood pressure, pulse, and oxygen ? saturations were monitored continuously.The ? Colonoscope was introduced through the anus and ? advanced to the terminal ileum. The colonoscopy was ? performed without difficulty. The patient tolerated ? the procedure well. The quality of the bowel ? preparation was excellent. Findings: ?The perianal and digital rectal examinations were ? normal. ? The terminal ileum appeared normal. ? Internal hemorrhoids were found during retroflexion. ? The hemorrhoids were Grade II (internal hemorrhoids ? that prolapse but reduce spontaneously). ? The entire examined colon appeared normal. Procedure Code(s): ? --- Professional --- ? 72413, Colonoscopy, flexible; diagnostic, including ? collection of specimen(s) by brushing or washing, when ? performed (separate procedure) Diagnosis Code(s): ? --- Professional --- ? K64.1, Second degree hemorrhoids ? K62.5, Hemorrhage of anus and rectum CPT copyright 2020 [employer]. All rights reserved. The codes documented in this report are preliminary and upon kindergartner review may be revised to meet current compliance requirements. Nano Brown MD 02/09/2025 11:19:10 AM This report has been signed electronically.Nano Brown MD Number of Addenda: 0 Note Initiated On: 02/09/2025 10:56 AM Scope In: Scope Out: ? Endoscopy Department at [facility] - [address] [place] [address], ? [place] [address] Procedure Note Nano Brown MD - 02/09/2025 [facility] GI Patient Name: Danita Randle Procedure Date: 02/09/2025 10:56 AM Date of : 1955 Age: 69 Gender: Female Note Status: Finalized Attending MD: Nano Brown MD, Procedure Date No Time: 02/09/2025 Procedure: Colonoscopy Indications: Rectal bleeding Providers: Nano Brown MD Referring MD: Sugey Rice MD Medicines: Propofol per Anesthesia Complications: No immediate complications. Estimated Blood Loss: Estimated blood loss: none. Procedure: Pre-Anesthesia Assessment: - ASA Grade Assessment: III - A patient with severe systemic disease. After I obtained informed consent, the scope was passed under direct vision. Throughout theprocedure, the patient's blood pressure, pulse, and oxygen saturations were monitored continuously.The Colonoscope was introduced through the anus and advanced to the terminal ileum. The colonoscopy was performed without difficulty. The patient tolerated the procedure well. The quality of the bowel preparation was excellent. Findings: The perianal and digital rectal examinations were normal. The terminal ileum appeared normal. Internal hemorrhoids were found duringretroflexion. The hemorrhoids were Grade II (internal hemorrhoids that prolapse but reduce spontaneously). The entire examined colon appeared normal. Procedure Code(s): --- Professional --- 90807, Colonoscopy, flexible; diagnostic, including collection of specimen(s) by brushing or washing,when performed (separate procedure) Diagnosis Code(s): --- Professional --- K64.1, Second degree hemorrhoids K62.5, Hemorrhage of anus and rectum CPT copyright 2020 [employer]. All rights reserved. The codes documented in this report are preliminary and upon kindergartner reviewmay be revised to meet current compliance requirements. Nano Brown MD 02/09/2025 11:19:10 AM This report has been signed electronically.Nano Brown MD Number of Addenda: 0 Note Initiated On: 02/09/2025 10:56 AM Scope In: Scope Out: Endoscopy Department at [facility] - [address] [place] [phone] IMPRESSION: - The examined portion of the ileum was normal. - Internal hemorrhoids. - The entire examined colon is normal. - No specimens collected. Recommendation: - Repeat colonoscopy in 10 years for screening purposes. - Resume Eliquis (apixaban) at prior dose today. Nano Brown MD GI~PROCEDURE ORDERABLES Final Result * (ABNORMAL) Iron and TIBC (02/03/2025 10:08 AM EDT) Iron 44 40 - 150 mcg/dL LAB CHEMISTRY METHOD 02/03/2025 12:19 PM EDT [facility] TIBC 327 250 - 450 mcg/dL LAB CHEMISTRY METHOD 02/03/2025 12:19 PM EDT [facility] Iron Saturation 13(L) 15 - 50 % LAB CHEMISTRY METHOD 02/03/2025 12:19 PM EDT [facility] Blood Venous blood specimen / Unknown Venipuncture / Unknown 02/03/2025 10:08 AM EDT 02/03/2025 11:06 AM EDT us Yousuf Thorpe MD LAB BLOOD ORDERABLES Final Result [facility] [address] [place] [address], * (ABNORMAL) Complete blood count (02/03/2025 10:08 AM EDT) [facility] Signature WBC 6.5 4.8 - 10.8 K/mcL LAB HEMETOLOGY METHOD 02/03/2025 11:32 AM EDT [facility] RBC 3.00(L) 3.80 - 4.80 M/mcL LAB HEMETOLOGY METHOD 02/03/2025 11:32 AM EDT [facility] Hemoglobin 9.3(L) 11.5 - 16.0 g/dL LAB HEMETOLOGY METHOD 02/03/2025 11:32 AM EDT [facility] Hematocrit 29.1(L) 35.0 - 47.0 % LAB HEMETOLOGY METHOD 02/03/2025 11:32 AM EDT [facility] MCV 96.4 79.0 - 98.0 FL LAB HEMETOLOGY METHOD 02/03/2025 11:32 AM EDT [facility] MCH 30.8 27.0 - 32.0 pcg LAB HEMETOLOGY METHOD 02/03/2025 11:32 AM EDT [facility] MCHC 32.0 32.0 - 37.0 g/dL LAB HEMETOLOGY METHOD 02/03/2025 11:32 AM EDT [facility] RDW 14.2 11.0 - 15.0 % LAB HEMETOLOGY METHOD 02/03/2025 11:32 AM EDT [facility] Platelets 202 130 - 400 K/mcL LAB HEMETOLOGY METHOD 02/03/2025 11:32 AM EDT [facility] MPV 11.3(H) 7.0 - 11.0 FL LAB HEMETOLOGY METHOD 02/03/2025 11:32 AM EDT [facility] NRBC 0.0 <1.0 % LAB HEMETOLOGY METHOD 02/03/2025 11:32 AM EDT [facility] NRBC Absolute 0.00 <0.10 K/[facility] LAB HEMETOLOGY METHOD 02/03/2025 11:32 AM EDT [facility] Blood Venous blood specimen / Unknown Venipuncture / Unknown 02/03/2025 10:08 AM EDT 02/03/2025 11:07 AM EDT us Yousuf Thorpe MD LAB BLOOD ORDERABLES Final Result Performing Organization Address City/[facility]/ZIP Co de Phone Number [facility] [address] [place] [address], [place] [phone] * Ferritin (02/03/2025 10:08 AM EDT) Pathologist [facility] Ferritin 22 8 - 252 ng/mL LAB CHEMISTRY METHOD 02/03/2025 12:19 PM EDT [facility] Blood Venous blood specimen / Unknown Venipuncture / Unknown 02/03/2025 10:08 AM EDT 02/03/2025 11:06 AM EDT us Yousuf Thorpe MD LAB BLOOD ORDERABLES Final Result Performing Organization Address City/[facility]/ZIP Co de Phone Number [facility] [address] [place] [address], [place] [phone] * (ABNORMAL) CBC auto differential (02/01/2025 10:15 AM EDT) WBC 6.4 4.8 - 10.8 K/mcL LAB HEMETOLOGY METHOD 02/01/2025 11:46 AM EDT [facility] RBC 3.30(L) 3.80 - 4.80 M/mcL LAB HEMETOLOGY METHOD 02/01/2025 11:46 AM [facility] Hemoglobin 10.1(L) 11.5 - 16.0 g/dL LAB HEMETOLOGY METHOD 02/01/2025 11:46 AM [facility] Hematocrit 31.6(L) 35.0 - 47.0 % LAB HEMETOLOGY METHOD 02/01/2025 11:46 AM [facility] MCV 96.9 79.0 - 98.0 FL LAB HEMETOLOGY METHOD 02/01/2025 11:46 AM [facility] MCH 31.0 27.0 - 32.0 pcg LAB HEMETOLOGY METHOD 02/01/2025 11:46 AM [facility] MCHC 32.0 32.0 - 37.0 g/dL LAB HEMETOLOGY METHOD 02/01/2025 11:46 AM [facility] RDW 13.9 11.0 - 15.0 % LAB HEMETOLOGY METHOD 02/01/2025 11:46 AM [facility] Platelets 201 130 - 400 K/mcL LAB HEMETOLOGY METHOD 02/01/2025 11:46 AM [facility] MPV 11.4(H) 7.0 - 11.0 FL LAB HEMETOLOGY METHOD 02/01/2025 11:46 AM [facility] NRBC 0.0 <1.0 % LAB HEMETOLOGY METHOD 02/01/2025 11:46 AM [facility] NRBC Absolute 0.00 <0.10 K/mcL LAB HEMETOLOGY METHOD 02/01/2025 11:46 AM [facility] Neutrophils Relative 61.0 % LAB HEMETOLOGY METHOD 02/01/2025 11:46 AM [facility] Lymphocytes Relative 29.9 % LAB HEMETOLOGY METHOD 02/01/2025 11:46 AM [facility] Monocytes Relative 6.3 % LAB HEMETOLOGY METHOD 02/01/2025 11:46 AM EDT [facility] Eosinophils Relative 1.9 % LAB HEMETOLOGY METHOD 02/01/2025 11:46 AM T [facility] Basophils Relative 0.6 % LAB HEMETOLOGY METHOD 02/01/2025 11:46 AM EDT [facility] Immature Granulocytes Relative 0.3 % LAB HEMETOLOGY METHOD 02/01/2025 11:46 AM EDT [facility] Neutrophils Absolute 3.87 1.50 - 7.00 K/mcL LAB HEMETOLOGY METHOD 02/01/2025 11:46 AM EDT [facility] Lymphocytes Absolute 1.90 1.00 - 5.00 K/mcL LAB HEMETOLOGY METHOD 02/01/2025 11:46 AM EDT [facility] Monocytes Absolute 0.40 0.20 - 1.00 K/mcL LAB HEMETOLOGY METHOD 02/01/2025 11:46 AM EDT [facility] Eosinophils Absolute 0.12 0.00 - 0.50 K/mcL LAB HEMETOLOGY METHOD 02/01/2025 11:46 AM [facility] Basophils Absolute 0.04 0.00 - 0.20 K/mcL LAB HEMETOLOGY METHOD 02/01/2025 11:46 AM EDT [facility] Immature Granulocytes Absolute 0.02 0.00 - 0.03 K/mcL LAB HEMETOLOGY METHOD 02/01/2025 11:46 AM EDT [facility] Blood Venous blood specimen / Unknown Venipuncture / Unknown 02/01/2025 10:15 AM EDT 02/01/2025 11:33 AM EDT us Nano Brown MD LAB BLOOD ORDERABLES Final Res ult [facility] [address] [place] [address], [place] [phone] from Last 3 Months Insurance MEDICARE [facility] Care Teams Marketing And Communications Officer Relationship Specialty Start Date End Date Sugey Rice MD [address] [phone] PCP - General Family Medicine 10/07/24
--- OUTSIDE RECORDS SUMMARY | 2025-03-03 15:05 | XMS_ITS | Encounter Summary ---
Author Organization [facility] Address [address] [place] [address] Phone Care Team Providers Care Pig Casting Machine Operator Name Role Phone Sugey Rice MD Primary Care Provider [phone] Encounter Details Date Type Department Care Team (Late st Contact Info) Description 03/19/2024 Documentation Only [facility] [place], [address] [place] [phone] [place], [place] [address] [place] [address] Social History Tobacco Use Types [...] Visit [facility] [place] [facility] [place] [address] [place] [phone] Leonardo Stovall [address] [facility] [place] [phone] documented as of this encounter Visit Diagnoses Not on filedocumented in this encounter Care Teams Pig Casting Machine Operator Relationship Specialty Start Date End Date Sugey Rice MD [address] [phone] PCP - General Family Medicine 09/04/21 documented as of this encounter
--- OUTSIDE RECORDS SUMMARY | 2025-03-03 15:05 | XMS_ITS | Encounter Summary ---
Author Organization [facility] Address [address] [place] [address] Care Team Providers Care Cup Machine Operator Name Role Phone Sugey Rice MD Primary Care Provider [phone] Encounter Details Date Type Department Care Team (Late st Contact Info) Description 01/02/2022 Erroneous Encounter [facility] [address] [place] [phone] Provider, MD Frank Social History Tobacco Use [...] AM EDT [facility] Visit [facility] [address] [place] [address] Gurjit Steele MD 31 [facility] 100 [place] [address] 06/29/2025 10:30 AM EDT Office Visit [facility]rology [place] [address] [place] [address] Josef Loya MD [address] [place] [address] documented as of this encounter Visit Diagnoses Not on filedocumented in this encounter Care Teams Cup Machine Operator Relationship Specialty Start Date End Date Sugey Rice MD [address] [address] PCP - General Family Medicine 05/05/23 documented as of this encounter
--- OUTSIDE RECORDS SUMMARY | 2025-03-03 15:05 | XMS_ITS | Encounter Summary ---
Author Organization [facility] Address [address] [place] [address] Phone Care Team Providers Care Obiee Report Developer Name Role Phone Sugey Rice MD Primary Care Provider [phone] Encounter Details Date Type Department Care Team (Late st Contact Info) Description 12/17/2024 Documentation Only [facility] [place], [address] [phone] [place], [place] [address] [place] [address] Social History Tobacco Use Types [...] Visit [facility] [place] [facility] [place] [address] [place] [phone] Leonardo Stovall [address] [facility] [place] [phone] documented as of this encounter Visit Diagnoses Not on filedocumented in this encounter Care Teams Obiee Report Developer Relationship Specialty Start Date End Date Sugey Rice MD [address] [phone] PCP - General Family Medicine 09/04/21 documented as of this encounter
--- OUTSIDE RECORDS SUMMARY | 2025-03-03 15:05 | XMS_ITS | Encounter Summary ---
Author Organization [facility] Address [address] [place] [address] Care Team Providers Care Supervisor Vegetable Farming Name Role Phone Sugey Rice MD Primary Care Provider [phone] Reason for Visit * Reason Comments Appointment Encounter Details Date Type Department Care Team (Late st Contact Info) Description 02/05/[address] [phone] Josef Loya MD [address] [place] [address] Appointment Social History Tobacco Use Types Packs/Day [...] AM EDT Office Visit [facility] [place] [address] [facility] [address] [place] [address] Gurjit Steele MD 31 [facility] 100 [place] [address] 06/29/2025 10:30 AM EDT Office Visit [facility] Urology [place] [address] [place] [address] Josef Loya MD [address] [place] [address] documented as of this encounter Visit Diagnoses Not on filedocumented in this encounter Care Teams Supervisor Vegetable Farming Relationship Specialty Start Date End Date Sugey Rice MD [address] [place] [address] PCP - General Family Medicine 05/05/23 documented as of this encounter
--- OUTSIDE RECORDS SUMMARY | 2025-03-03 15:05 | XMS_ITS | Encounter Summary ---
Author Organization [facility] Address [address] [place] [address] Phone Care Team Providers Care Senior Qualitative Researcher Name Role Phone Sugey Rice MD Primary Care Provider [phone] Encounter Details Date Type Department Care Team (Late st Contact Info) Description 12/10/2024 Documentation Only [facility] [place], [address] [place] [phone] [place], [place] [address] [place] [address] Social History Tobacco Use Types [...] Visit [facility] [place] [facility] [place] [address] [place] [phone] Leonardo Stovall [address] [facility] [place] [phone] documented as of this encounter Visit Diagnoses Not on filedocumented in this encounter Care Teams Senior Qualitative Researcher Relationship Specialty Start Date End Date Sugey Rice MD [address] [phone] PCP - General Family Medicine 09/04/21 documented as of this encounter
--- OUTSIDE RECORDS SUMMARY | 2025-03-03 15:05 | XMS_ITS | Encounter Summary ---
Author Organization [facility] Address [address] [place] [address] Care Team Providers Care Care Aide Name Role Phone Sugey Rice MD Primary Care Provider Reason for Visit * Reason Comments Other Pre-op Encounter Details Date Type Department Care Team ([facility] st Contact Info) Description 03/15/2024 Telephone [facility] Urologic Surgery [place] [address] [address] Josef Loya MD [address] [place] [address] Other (Pre-op ) Social History Tobacco Use [...] more drinks on one occasion? Never 03/16/2024 Comments Unknown Sex and Gender Information Value Date Recorded Sex Assigned at Female 02/23/2024 1:19 PM EDT Legal Sex Female 10:14 AM EDT Gender Identity Female 02/23/2024 1:19 PM EDT Sexual Orientation Heterosexual (straight) 02/22 1:19 PM EDT documented as of this encounter Functional Status * Audit-C Score Answer Date of Assessment Author 0 03/16/2024 3:23 PM EDT Marisel Reyes RN * Question Answer Date of Assessment Author Q1: How often do you have a drink containing alcohol? Never 03/16/2024 3:23 PM EDT Marisel Reyes RN Q2: How many drinks containing alcohol do you have on a typical day when you are drinking? Patient does not drink 03/16/2024 3:23 PM EDT Marisel Reyes RN Q3: How often do you have six or more drinks on one occasion? Never 03/16/2024 3:23 PM EDT Marisel Reyes RN documented as of this encounter Miscellaneous Notes * Telephone Encounter - Basia Thorpe MA - 03/16/2024 6:53 AM EDT Pre op paperwork faxed to fax number provided confirmation received. documented in this encounter Plan of Treatment Upcoming Encounters Date Type Department Care Team (Late st Contact Info) Description 03/23/2025 10:00 AM EDT [facility] [address] [place] [address] Gurjit Steele MD [address] [address] 06/29/2025 10:30 AM EDT Office Visit [facility] Urology [place] [address] [place] [phone] Josef Loya MD [address] [place] [address] documented as of this encounter Visit Diagnoses Not on filedocumented in this encounter Care Teams Care Aide Relationship Specialty Start Date End Date Sugey Rice MD [address] [place] [address] [address] [place] [address] PCP - General Family Medicine 05/05/23 documented as of this encounter
--- OUTSIDE RECORDS SUMMARY | 2025-03-03 15:06 | XMS_ITS | Clinical Summary ---
Author Organization [facility], Address [address] [place] [address] [place] [address] Phone Care Team Providers Care Law Tutor Name Role Phone Sugey Rice MD Primary Care Provider [phone] Allergies Active Allergy Reactions Criticality Noted Date [...] Only [facility] [address] [place] [address] Lissett Zacarias MA 12/10/2024 2:00 PM EST Office [facility] [address] [place] [address] Leonardo Stovall DO Stage 3a chronic kidney disease (HCC) (Primary Dx); Hypertensive heart and chronic kidney disease without heart failure, with stage 1 through stage 4 chronic kidney disease, or unspecified chronic kidney disease; Uric acid renal calculus; Essential hypertension 12/10/2024 Documentation Only [facility] [address] [place] [address] Lissett Zacarias MA from Last 3 Months Immunizations Immunization Administration Dates Next Due Influenza Split High Dose Pr eservative Free IM 07/01/2020 Influenza TIV (IM) 08/07/2016 Influenza, Quadrivalent, Pre servative Free 08/12/2019,08/12/2019,08/18/2018,08/18,07/12/2017,07/12/2017 Influenza, Unspecified 07/28/2021,08/07/2016 Pfizer SARS-COV-2 08/10/2021,01/07/2021,12/17/19 Pneumococcal Conjugate 13-Valent 07/19/2020 Pneumococcal Polysaccharide 07/19/2021 Shingrix 05/08/2022,01/19/2019 Tdap 04/17/2012 Zoster 01/19/2019,07/19/2014 Family History Medical History Relation Comments Cancer Mother Diabetes Mother Hypertension Mother Kidney disease Sibling 1 Son - high rescue worker Cancer Sibling 2 brother-SCC Relation Status Comments [...] Visit [facility] - [address] [facility] [phone] Leonardo Stovall DO [address] [place] [address] [place] [address] Health Maintenance Due Date Last Done Comments Breast Cancer Screening 1955 Colorectal Cancer Screening: Annual FOBT 2004 Colorectal Cancer Screening: Colonoscopy 2004 Colorectal Cancer Screening: Sigmoidoscopy 2004 Pneumococcal Vaccine: 50+ Years Completed 07/17/2022, 07/19/2021, 07/19/2020 Influenza Vaccine Completed 08/03/2024, , 07/28/2021, Additional history exists Hepatitis B Vaccine Aged Out No longe r eligible based on patient's age to complete this topic Insurance [facility] Medicare Care Teams Law Tutor Relationship Specialty Start Date End Date Sugey Rice MD [address] [place] [phone] PCP - General Family Medicine 09/04/21
--- OUTSIDE RECORDS SUMMARY | 2025-03-03 15:06 | XMS_ITS | Encounter Summary ---
Author Organization [facility] Address [address] [place] [address] Phone Care Team Providers Care Network And Threat Support Specialist Name Role Phone Sugey Rice MD Primary Care Provider [phone] Encounter Details Date Type Department Care Team (Late Contact Info) Description 04/28/2024 Documentation Only [facility] [place], [address] [facility] [phone] Leonardo Stovall DO [address] [facility] [address] [place] [address] Social History Tobacco Use Types [...] Visit [facility] [place] [facility] [place] [address] [place] [phone] Leonardo Stovall DO [address] [facility] [place] [address] documented as of this encounter Visit Diagnoses Not on filedocumented in this encounter Care Teams Network And Threat Support Specialist Relationship Specialty Start Date End Date Sugey Rice MD [address] [phone] PCP - General Family Medicine 09/04/21 documented as of this encounter
--- OUTSIDE RECORDS SUMMARY | 2025-03-03 15:06 | XMS_ITS | Encounter Summary ---
Author Organization [facility] Address [address] [place] [address] Phone Care Team Providers Care Briquette Maker Name Role Phone Sugey Rice MD Primary Care Provider [phone] Encounter Details Date Type Department Care Team (Late Contact Info) Description 07/25/2023 Documentation Only [facility] [place], [address] [address] [place] [phone] Leonardo Stovall DO [address] [facility] [place] [address] Social History Tobacco Use Types [...] Visit [facility] [place] [facility] [place] [address] [place] [phone] Leonardo Stovall DO [address] [facility] [place] [address] documented as of this encounter Visit Diagnoses Not on filedocumented in this encounter Care Teams Briquette Maker Relationship Specialty Start Date End Date Sugey Rice MD [address] [phone] PCP - General Family Medicine 09/04/21 documented as of this encounter
--- OUTSIDE RECORDS SUMMARY | 2025-03-03 15:06 | XMS_ITS | Encounter Summary ---
Author Organization [facility] Address [address] [place] [address] Phone Care Team Providers Care Chemical Operations And Training Name Role Phone Sugey Rice MD Primary Care Provider [phone] Encounter Details Date Type Department Care Team (Late st Contact Info) Description 07/29/2023 Documentation Only [facility] [place], [address] [facility] [place] [phone] Lissett [place], [place] [address] [place] [address] Social History Tobacco Use Types [...] Visit [facility] [place] [facility] [place] [address] [place] [phone] Leonardo Stovall [address] [facility] [place] [address] documented as of this encounter Visit Diagnoses Not on filedocumented in this encounter Care Teams Chemical Operations And Training Relationship Specialty Start Date End Date Sugey Rice MD [address] [phone] PCP - General Family Medicine 09/04/21 documented as of this encounter
--- OUTSIDE RECORDS SUMMARY | 2025-03-03 15:06 | XMS_ITS | Clinical Summary ---
Author Organization [facility] Address [address] [place] [address] Care Team Providers Care Advertising Intern Name Role Phone Pcp, No MD Primary [...] capsule Take by mouth. 2 Active cartilage-colla aqc-sem-yfhjcg 40-5-3.3 mg tablet daily. Active lisinopriL (PRINIVIL) [...] Td or Tdap) 04/17/2022 04/17/2012 COVID-19 Vaccine (2023- season) 2024 08/03/2022, 06/01/2022, 08/10/2021, Additional history exists Influenza Vaccine (Season Ended) 2025 08/05/2022, 07/28/2021, 07/28/2021, Additional history exists Zoster Vaccines [...] patient's age to complete this topic Insurance [facility] MEDICARE PART A & B Care Teams Advertising Intern Relationship Specialty Start Date End Date Gloria Zuñiga MD [address] [place] [address] PCP - General Internal Medicine 07/02/22
--- OUTSIDE RECORDS SUMMARY | 2025-03-03 15:06 | XMS_ITS | Encounter Summary ---
Author Organization [facility] Address [address] [place] [address] Care Team Providers Care Meat Hanger Name Role Phone Sugey Rice MD Primary Care Provider [phone] Encounter Details Date Type Department Care Team (Late st Contact Info) Description 09/23/2024 Scanned Document Orthopedic [address] [phone] Gurjit Steele MD [address] [place] [address] Social History Tobacco Use Types Packs/Day Years [...] 10:00 AM EDT [facility] [address] [facility] [address] [place] [address] Gurjit Steele MD 31 [facility] [address] [place] [address] 06/29/2025 10:30 AM EDT Office Visit [facility] Urology [place] [address] [place] [address] Josef Loya MD 80 [place] [address] documented as of this encounter Visit Diagnoses Not on filedocumented in this encounter Care Teams Meat Hanger Relationship Specialty Start Date End Date Sugey Rice MD [address] [place] [address] [address] [place] [address] PCP - General Family Medicine 05/05/23 documented as of this encounter
--- OUTSIDE RECORDS SUMMARY | 2025-03-03 15:06 | XMS_ITS | Clinical Summary ---
Author Organization [facility] Address [address] [place] [address] Care Team Providers Care Refrigerator Mover Name Role Phone Sugey Rice MD Primary Care Provider [phone] Allergies Active Allergy Reactions Criticality Noted Date Comments Amoxicillin Itching Low 05/05/2023 Ciprofloxacin Hives Medium 05/05/2023 Latex Other (See Comments) 09/06/2021 Medications amLODIPine (NORVASC) 5 MG tablet Take 1 tablet (5 mg total) by mouth nightly. 12/16/2023 Active Cholecalciferol (Vitamin D) 50 MCG (2000 UT) tablet nightly. Active levothyroxine (SYNTHROID, LEVOTHROID) 75 MCG tablet nightly. 02/01/2024 Active lisinopril (PRINIVIL,ZeSTR IL) 10 MG tablet Take 1 tablet (10 [...] Active oxyCODONE (ROXICODONE) 5 MG immediate release tabletIndicatio ns:Kidney stone Take 1 tablet (5 mg total) by mouth 4 times daily (every 6 hours) as needed for severe pain. Max Daily Amount: 20 mg 6 tablet 03/29/2024 Active phenazopyridine (PYRIDIUM) 200 MG tabletIndicatio ns:Kidney stone Take 1 tablet (200 mg total) by mouth 3 (three) times a day in the morning, mid-day and early evening. 10 tablet 03/29/2024 Active tamsulosin (FLOMAX) 0.4 MG capsuleIndicati ons:Kidney stone Take 1 capsule (0.4 mg total) by mouth daily. 14 capsule 03/29/2024 Active docusate sodium (COLACE) 100 MG capsuleIndicati ons:Kidney stone Take 1 capsule (100 mg total) by mouth 2 (two) times a day. 20 capsule 03/29/2024 Active oxyCODONE-aceta minophen (PERCOCET) 5-325 mg per tabletIndicatio ns:CMC arthritis Take 1 tablet by mouth Every [...] AM EST Office [place] [facility] [address] Gurjit Steele MD CMC arthritis (Primary Dx) [...] AM EDT [facility] Visit [facility] [address] [address] Gurjit Steele MD [address] [address] 06/29/2025 10:30 AM EDT Office Visit [facility] Urology [place] [address] [place] [address] Josef Loya MD [address] [place] [address] Health Maintenance Due Date Last Done Comments [...] this topic Medical Devices Explanted Type Area Hooking Machine Operator Device Identifier Shelf Expiration Date Model / Serial / Lot [id number] Stent Ureteral 6fr 26cm Taper Tip Bldr Benjie Lp Contour Hdr+ - [id number] Implanted:Qty : 1 on 03/29/2024 by Josef Loya MD at [facility] Explanted:Qty : 1 on 04/07/2024 by Josef Loya MD Stent Right: Ureter [employer] [id number] 11/30/2026 [id number] 30 / / [id number] Insurance MEDICARE PART A & B [facility] MEDICARE PART A & B [facility] Care Teams Refrigerator Mover Relationship Specialty Start Date End Date Sugey Rice MD [address] [facility] [address] [place] [address] PCP - General Family Medicine 05/05/23
--- OUTSIDE RECORDS SUMMARY | 2025-03-03 15:06 | XMS_ITS | Encounter Summary ---
Author Organization [facility] Address [address] [place] [address] Phone Care Team Providers Care Pigment Furnace Tender Name Role Phone Sugey Rice MD Primary Care Provider [phone] Encounter Details Date Type Department Care Team (Late Contact Info) Description 08/04/2023 Documentation Only [facility] [place], [address] [facility] [place] [address] Leonardo Stovall DO [address] [facility] [place] [address] Social History Tobacco Use Types [...] Visit [facility] [place] [facility] [place] [address] [place] [phone] Leonardo Stovall DO [address] [facility] [place] [address] documented as of this encounter Visit Diagnoses Not on filedocumented in this encounter Care Teams Pigment Furnace Tender Relationship Specialty Start Date End Date Sugey Rice MD [address] [phone] PCP - General Family Medicine 09/04/21 documented as of this encounter
--- OUTSIDE RECORDS SUMMARY | 2025-03-03 15:06 | XMS_ITS | Patient Health Record ---
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
== END 2025-03-03 13:04 | disposition home or self-care (01) ==
LOC: HO.HCS 12:13
PROVIDERS: PCP Family Medicine; Visit Provider Internal Medicine Cardiovascular Disease
DX: R00.1 Bradycardia, unspecified (principal); I48.92 Unspecified atrial flutter; I27.20 Pulmonary hypertension, unspecified
CPT/HCPCS: 99214; G2211

== ENCOUNTER → 2025-03-03 | Outpatient (REF) | payer MEDICARE, OTHER, SELFPAY ==
--- OUTSIDE RECORDS SUMMARY | 2025-05-13 14:25 | XMS_ITS | Encounter Summary ---
Author Organization [facility] Address [address] [place] [address] Care Team Providers Care Appliance Assembler Name Role Phone Sugey Rice MD Primary Care Provider [phone] Reason for Visit * Reason Comments Appointment Encounter Details Date Type Department Care Team (Late st Contact Info) Description 02/05/[address] [address] Josef Loya MD [address] [place] [address] Appointment Social History Tobacco Use Types Packs/Day [...] Care Team (Late st Contact Info) Description 05/19/2025 9:00 AM EDT Consult [facility] [place] 7 m [facility] 203 [place] [address] Sharda Jessica APRN 399 [facility] [place] [address] Lissy Pringle APRN [address] [facility] [address] [place] [phone] 06/01/2025 9:15 AM EDT [facility] Visit [facility] [address] [place] [address] Gurjit Steele MD [address] [address] 06/13/2025 11:45 AM EDT Appointment [facility] Radiology [facility] 35 [place] [address] Josef Loya MD [address] [place] [address] 06/29/2025 10:30 AM EDT Office Visit [facility] Urology [place] [address] Josef Loya MD [address] [place] [address] 07/26/2025 11:00 AM EDT Office Visit [address] [phone] Nicole Olivier PA-C [address] [place] [address] documented as of this encounter Visit Diagnoses Not on filedocumented in this encounter Care Teams Appliance Assembler Relationship Specialty Start Date End Date Sugey Rice MD [address] [place] [address] 207 [place] [address] PCP - General Family Medicine 05/05/23 documented as of this encounter
== END ==
LOC: HO.CARD
PROVIDERS: PCP Family Medicine; Visit Provider Internal Medicine Cardiovascular Disease
DX: I48.92 Unspecified atrial flutter (principal); I27.20 Pulmonary hypertension, unspecified; R00.1 Bradycardia, unspecified
CPT/HCPCS: 99212

== ENCOUNTER 2025-03-17 09:33 | Outpatient (AMB) | payer MEDICARE, OTHER, SELFPAY ==
[2025-03-17 09:56] VITALS: BP 146/56; PULSE 58; O2SAT 97; BMI 43.8
--- NOTE | 2025-03-17 09:56 | MHC.OFFVIS ---
Vital Signs 03/17/25 09:56 Height 5 ft 6 in Weight 271 lb 2.697 oz BMI 43.8 BP 146/56 H Blood Pressure Location Lt brachial Position Sitting Pulse 58 Pulse Source Pulse Oximeter Pulse Oximetry (%) 97 Oxygen Delivery Method Room Air Intake Visit Reasons: Asthma Sales Operations Assistant Required: No Accompanied by: Self / Same As Patient Allergies amoxicillin Allergy (Verified 03/17/25 10:00) hives ciprofloxacin Allergy (Verified 03/17/25 10:00) Hives latex Allergy (Verified 03/17/25 10:00) vaginal itching HPI Comments Details: The patient is a 69 year woman presenting with an abnormal pulmonary function study and CT scan. Apparently the patient has been having worsening shortness of breath. She has a rescue inhaler. She does use it as needed. Typically less than 2 times a week. She did undergo pulmonary function studies at [facility] which I personally reviewed. She appeared to have a mild obstruction consistent with obstructive airway disease in addition to that she had a mild restrictive ventilatory defect consistent with restrictive lung. She also had a mild decrease in the diffusing capacity but corrected to normal when corrected for the alveolar volume that suggest mainly extrinsic cause for the diffusion impairment. The patient also underwent a CT scan after having the abnormal pulmonary function study which I also personally reviewed. It appeared that her trachea appeared to be flat in a little bit consistent with tracheomalacia. This is mainly the mid and distal part of the trachea. In addition to that she has small subcentimeter pulmonary nodules have any follow-up in a year's time. No significant interstitial lung disease except she did have some areas of scarring primarily in the right middle lobe area and also at the bases just some areas of atelectasis and some reticular changes. Although no overt interstitial lung disease appreciated. And no significant ground-glass opacities appreciated. She was feeling much better prior to the appointment but then about a week ago she was eating popcorn and she aspirated some pop according to her lungs. She was coughing a lot she has been coughing significant amount of lately. Last night she did a little better but the night before she did have a hard time sleeping because of cough. She did have some codeine that she could take that helped relieve some of the symptoms. She was able to remove some specks out of the airways which she noticed some specks in her sputum. In the office she does have some wheezing right more than left. Will have her get an x-ray to see if there is any significant collapsibility atelectasis of the lungs from any foreign body. In the meantime though will go ahead and start her on inhaled cortical steroid. And although she has wheezing will avoid systemic steroids since she just recently had surgery of her hand. The patient also provide an aerobika CPT device to try to use it multiple times a day to try to help her with bronchopulmonary hygiene and mucus clearance and hopefully removal of any residual foreign body in her lungs. She will undergo a chest x-ray to assess for any significant findings. If she does have evidence of pneumonia I will send some antibiotics in the pharmacy as well. If the patient shows no improvement of her symptoms then a evaluation with bronchoscopy may be warranted just to look for any persistent foreign bodies. However, will hopefully avoid any semi invasive procedures she is able to clear up her own secretions at this time. 11/25/2024 the patient is here for pulmonary follow-up visit. The patient overall has been feeling a lot better. She ended up in the hospital after being diagnosed with AFib flutter. This is on the day of the bronchoscopy. Therefore we had to postpone the bronchoscopy initially. She did have a CT scan of the chest demonstrating a pneumonia on the right lower lobe consistent with an obstruction. Therefore once her cardiac status was stable she did undergo a bronchoscopy and a foreign body was removed in this case it was a corn popcorn kernel. The patient is feeling a lot better. She has use still using the Wixela twice a day. Will see about weaning her office since her breathing is better. She does complaint of some burning sensation in the substernal is area when she is exercising. I encourage her to not exercises hard and we did reach out to Cardiology in order for her to have a stress test. She also has atrial flutter and will likely need cardioversion at some point. The patient does have also some evidence of pulmonary hypertension. Explained to his multifactorial. The patient does have daytime drowsiness. Her Cabins score is 11/24. She may have a component of untreated sleep apnea that is likely contributing to the pulmonary hypertension. In addition to that the stress of having the pneumonia the obstruction from the aspiration and also the a flutter are also contributing. Hopefully these entities will subside and she can feel better. In the meantime will give her 3 days of Lasix that she can start once she is ready to try to remove some fluid off her body. 02/03/2025 the patient is here for pulmonary follow-up visit. The patient has a lot of concerns. She did start the CPAP therapy and CPAP therapy has been affecting beneficial. AHI is down to 0.4. She is using more than 4 hours a night. She is that the nasal pillows, P 10 is working well although she still has a little air leakage through her mouth. She benefits from a chinstrap. In addition to that she is getting some dryness in her mouth and along with a chinstrap the patient will benefit from heated tubing. Will request that from her [employer] company, like supply. In the meantime the patient has been working with Cardiology. She does have in arrhythmia and does require a calcium channel addie. She has been noticing some low heart rates in the 30s at nighttime and also has been having some baseline heart rates in the low 50s. Although we did go for a walking heart rate did increase to 65 beats per minute quickly. She will continue taking the calcium channel addie and needs to follow-up closely with Cardiology. In addition to that she had some bleeding rectal bleeding after starting the Eliquis. Her hemoglobin dropped from 13 g to 10 g. she needs to go back on the Eliquis because of the risks some stroke. Will have her recheck her hemoglobin again and check her iron before she does so. Hopefully will know by today. Today she is also going to undergo a CT scan of the coronary arteries to assess for any coronary artery disease. The patient is also wondering about pulmonary hypertension. We did talk about the different ossifications. She likely has W HI class 2 and 3. She is going to have an echocardiogram rescheduled to be done closer to 3-4 months from now. She understands that the ECHO is only an estimate of the pressures. From a breathing standpoint she is doing good she has not required any inhalers. And denies any aspirations. 03/17/2025 the patient is here for pulmonary follow-up visit. Overall she is doing better. She has tolerated the CPAP now. The CPAP therapy has been affecting beneficial. She does use nasal pillows and sometimes they do leak and sometimes they loosen. She does have issues with opening up her mouth also and she probably has some air leakage through the mouth. Her AHI is very well controlled at 0.4 episodes an hour. Her uses more than 4 hours which is excellent. She still having some daytime drowsiness with slight elevation in the Cabins score. However, she understands that this therapies primarily for the heart and for her cerebrovascular health. In due time she is start feeling little better from energy standpoint. The patient also has been working on her cardioprotective medications. She has had some medication adjustments the seem to be better for her. She was able to go back to the [facility]. She has not had any more bleeding. She was wondering about a Watchman procedure. I did advise her to only undergo Watchman procedure if there is further absolute contraindications for the anticoagulation. At this point she seems to be tolerating it just fine. Also to note she did undergo colonoscopy without any evidence of any lesions which is reassuring. [facility] Medical History Iron deficiency anemia Dyspnea Atrial flutter Pulmonary hypertension YOSHI (obstructive sleep apnea) Chronic restrictive lung disease Asthma Pulmonary nodules Social History (Updated 03/17/25 @ 10:01 by Bryanna Parker CMA) Household Members: Spouse and Children Housing: House Do you presently have visiting nurse or other home services: No Alcohol intake: never Patient Tobacco Use Status: Never used Tobacco service: No Review of Systems Const Denies chills, Denies fatigue, Denies fever(s), Denies weight gain and Denies weight loss ENT Denies dizziness Card Denies chest pain, Denies leg edema, Denies lightheadedness, Denies palpitations, Denies dyspnea on exertion, Denies orthopnea and Denies other Resp Reports cough and Denies dyspnea on exertion GI Denies hematochezia and Denies change in stool character Musc Denies abnormal gait, Denies muscle weakness, Denies numbness, Denies radiating pain into limb and Denies tingling Neuro Denies abnormal gait, Denies dizziness, Denies numbness and Denies tingling Endo Denies fatigue and Denies palpitations Physical Exam Vital Signs: Last Vital Signs Pulse 58 03/17/25 09:56 BP 146/56 H 03/17/25 09:56 Pulse Ox 97 03/17/25 09:56 Oxygen Delivery Method Room Air 03/17/25 09:56 BMI result Body Mass Index 43.8 Last Vital Signs Temp 98.0 F 10/31/24 08:00 Pulse 80 10/31/24 08:00 Resp 18 10/31/24 08:00 BP 119/67 10/31/24 08:00 Pulse Ox 95 10/31/24 08:00 O2 Del Method Room Air 10/31/24 08:00 BMI result Body Mass Index 43.4 Const General: comfortable HEENT Head: Yes normocephalic Neck Neck: Yes supple Chest Chest palpation & inspection: normal inspection of the chest Resp Effort & Inspection: normal respiratory effort Auscultation: clear to auscultation bilaterally, no crackles, no rales and no rhonchi Cardio Heart sounds: S1 normal heart sound present and S2 normal heart sound present GI Palpation (GI): Soft to palpation Skin General skin exam: no rashes or lesions noted Extrem General: No clubbing, No cyanosis and Yes edema Assessment & Plan Assessment & Plan (1) Asthma: Code(s): J45.909 - Unspecified asthma, uncomplicated Category: Medical Qualifiers: Asthma complication type: uncomplicated Asthma persistence: intermittent Asthma severity: mild Qualified Code(s): J45.20 - Mild intermittent asthma, uncomplicated (2) Chronic restrictive lung disease: Comment: multifactorial Code(s): J98.4 - Other disorders of lung Category: Medical (3) YOSHI (obstructive sleep apnea): Code(s): G47.33 - Obstructive sleep apnea (adult) (pediatric) Category: Medical (4) Pulmonary hypertension: Code(s): I27.20 - Pulmonary hypertension, unspecified Category: Medical (5) Pulmonary nodules: Code(s): R91.8 - Other nonspecific abnormal finding of lung field Category: Medical (6) Dyspnea: Code(s): R06.00 - Dyspnea, unspecified Category: Medical Qualifiers: Dyspnea type: dyspnea on exertion Qualified Code(s): R06.09 - Other forms of dyspnea (7) Iron deficiency anemia: Code(s): D50.9 - Iron deficiency anemia, unspecified Category: Medical Qualifiers: Iron deficiency anemia type: other iron deficiency Qualified Code(s): D50.8 - Other iron deficiency anemias Plan JOSELUIS as needed Aerobika to use 2-4 times aday continue APAP, needs climate tubing and chin strap, using [employer], DME. Will trial N30i small mask rate control continue Eliquis F/U 3-4 months Coding Level of Care Code Est Pt Level 4 (68987) Complex EM visit Add On G2211 Diagnoses Mild intermittent asthma without complication J45.20 Asthma complication type: uncomplicated Asthma persistence: intermittent Asthma severity: mild Chronic restrictive lung disease J98.4 YOSHI (obstructive sleep apnea) G47.33 Pulmonary hypertension I27.20 Pulmonary nodules R91.8 Dyspnea on exertion R06.09 Dyspnea type: dyspnea on exertion Other iron deficiency anemia D50.8 Iron deficiency anemia type: other iron deficiency Time Spent (min) 18
--- OUTSIDE RECORDS SUMMARY | 2025-03-17 10:28 | XMS_ITS | Patient Health Record ---
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
--- OUTSIDE RECORDS SUMMARY | 2025-03-17 10:28 | XMS_ITS | Encounter Summary ---
Author Organization [facility] Address [address] [place] [address] Phone Care Team Providers Care Hazardous Waste Material Technician Name Role Phone Sugey Rice MD Primary Care Provider [phone] Encounter Details Date Type Department Care Team (Late Contact Info) Description 04/28/2024 Documentation Only [facility], [address] [place] [phone] Leonardo Stovall DO [address] [place] [address] Social History Tobacco Use Types [...] Visit [facility] [place] [address] [place] [id number] Leonardo Stovall DO [address] [place] [address] documented as of this encounter Visit Diagnoses Not on filedocumented in this encounter Care Teams Hazardous Waste Material Technician Relationship Specialty Start Date End Date Sugey Rice MD [address] [phone] PCP - General Family Medicine 09/04/21 documented as of this encounter
--- OUTSIDE RECORDS SUMMARY | 2025-03-17 10:28 | XMS_ITS | Encounter Summary ---
Author Organization [facility] Address [address] [place] [address] Phone Care Team Providers Care Forming Press Operator Name Role Phone Sugey Rice MD Primary Care Provider [phone] Reason for Visit * Reason Comments Med Refill Encounter Details Date Type Department Care Team (Late st Contact Info) Description 10/24/2024 Refill [facility] [address] [place] [phone] Leonarod Stovall DO [address] [place] [address] Social History Tobacco Use Types [...] Visit [facility] [place] [phone] Leonardo Stovall DO [address] [place] [address] documented as of this encounter Visit Diagnoses Not on filedocumented in this encounter Care Teams Forming Press Operator Relationship Specialty Start Date End Date Sugey Rice MD [address] [phone] PCP - General Family Medicine 09/04/21 documented as of this encounter
--- OUTSIDE RECORDS SUMMARY | 2025-03-17 10:28 | XMS_ITS | Clinical Summary ---
Author Organization [facility] 299 [facility] Address [address] [place] [address] Phone Care Team Providers Care Flowers Salesperson Name Role Phone Sugey Rice MD Primary Care Provider [phone] Allergies Active Allergy Reactions Criticality Noted Date [...] mouth 1 (one) time each day. Active Active Problems Problem Noted Date Diagnosed Date Anemia 02/09/2025 Hypothyroidism 02/09/2025 HTN (hypertension) 02/09/2025 Gastroesophageal reflux disease 02/09/2025 Dysrhythmias 02/09/2025 Encounters Date Type Department Care Team Description 02/09/2025 11:04 AM EDT Anesthesia Event [facility] Endoscopy [address] [place] [address] Kenya Patricio MD 02/09/2025 9:22 AM EDT - 02/09/2025 11:59 PM EDT Hospital Encounter [facility] Endoscopy [address] [place] [address] Nano Brown MD Barnes, Tyanna R, CRNA Kriz, Petra, MD Rectal bleeding Discharge Disposition: Home or Self Care 02/07/2025 Telephone Gastroenterology - [place] [address] [facility] 175 [facility] [address] [place] [phone] Rosa M Langley LPN Anticoagulation (Colonoscopy on 02/09/[address] Brown) 02/03/2025 9:50 AM EDT Lab Draw Station - [address] [address] Dyspnea (Primary Dx); Chest pain, unspecified; Abnormal blood chemistry 02/03/2025 Telephone Gastroenterology - [address] [address] Macie Harper MA 02/01/2025 10:10 AM EDT Lab Draw Station - [address] [address] Irritable bowel syndrome without diarrhea 02/01/2025 Telephone Gastroenterology - [address] [address] Nano Brown MD 02/01/2025 Telephone Gastroenterology - [address] [address] Nano Brown MD 02/01/2025 Telephone Gastroenterology - 299 [place] [address] [facility] [address] [place] [address] Macie Harper MA 01/31/2025 Telephone Gastroenterology - [address] [place] [address] Naon Borwn MD from Last 3 Months Surgical History Surgery [...] Months Results * COLONOSCOPY Anesthesia - [facility]; [facility] ENDOSCOPY (02/09/2025 11:17 AM EDT) Anatomical Region Laterality Modality Other 02/09/2025 10:5 6 AM EDT Impressions 02/09/2025 11:19 AM EDT - The examined portion of the ileum was normal. ? - Internal hemorrhoids. ? - The entire examined colon is normal. ? - No specimens collected. Recommendation: ?- Repeat colonoscopy in 10 years for screening ? purposes. ? - Resume Edvin (apixaban) at prior dose today. Narrative 02/09/2025 11:19 AM EDT [facility] GI Patient Name: Danita Randle Procedure Date: 02/09/2025 10:56 AM Date of : 1955 Age: 69 Gender: Female Note Status: Finalized Attending MD: Nano Brown MD, Procedure Date No Time: 02/09/2025 Procedure: ? Colonoscopy Indications: ? Rectal bleeding Providers: ? Nnao Brown MD Referring MD: ?Sugey Rice MD [...] Procedure Code(s): ? --- Professional --- ? 40247, Colonoscopy, flexible; diagnostic, including ? collection of specimen(s) by brushing or washing, when ? performed (separate procedure) Diagnosis Code(s): ? --- Professional --- ? K64.1, Second degree hemorrhoids ? K62.5, Hemorrhage of anus and rectum CPT copyright 2020 [employer]. All rights reserved. The codes documented in this report are preliminary and upon centrifugal casting machine tender review may be revised to meet current compliance requirements. Nano Brown MD 02/09/2025 11:19:10 AM This report has been signed electronically.Nano Brown MD Number of Addenda: 0 Note Initiated On: 02/09/2025 10:56 AM Scope In: Scope Out: ? Endoscopy Department at [facility] - [address] [place] [address], ? [place] [address] Procedure Note Nano Brown MD - 02/09/2025 [facility] GI Patient Name: Danita Randle Procedure [...] appeared normal. Procedure Code(s): --- Professional --- 89161, Colonoscopy, flexible; diagnostic, including collection of specimen(s) by brushing or washing,when performed (separate procedure) Diagnosis Code(s): --- Professional --- K64.1, Second degree hemorrhoids K62.5, Hemorrhage of anus and rectum CPT copyright 2020 [employer]. All rights reserved. The codes documented in this report are preliminary and upon centrifugal casting machine tender reviewmay be revised to meet current compliance requirements. Nanocari Brown MD 02/09/2025 11:19:10 AM This report has been signed electronically.Nano Brown MD Number of Addenda: 0 Note Initiated On: 02/09/2025 10:56 AM Scope In: Scope Out: Endoscopy Department at [facility] - [address] [place] [phone] IMPRESSION: - The examined portion of the ileum was normal. - Internal hemorrhoids. - The entire examined colon is normal. - No specimens collected. Recommendation: - Repeat colonoscopy in 10 years for screening purposes. - Resume Eliquis (apixaban) at prior dose today. Nano Brown MD GI~PROCEDURE ORDERABLES Final Result * (ABNORMAL) Iron and TIBC (02/03/2025 10:08 AM EDT) Pathologist [facility] Iron 44 40 - 150 mcg/dL LAB CHEMISTRY METHOD 02/03/2025 12:19 PM EDT [facility] TIBC 327 250 - 450 mcg/dL LAB CHEMISTRY METHOD 02/03/2025 12:19 PM EDT [facility] Iron Saturation 13(L) 15 - 50 % LAB CHEMISTRY METHOD 02/03/2025 12:19 PM EDT [facility] Blood Venous blood specimen / Unknown Venipuncture / Unknown 02/03/2025 10:08 AM EDT 02/03/2025 11:06 AM EDT Yousuf Thorpe MD LAB BLOOD ORDERABLES Final Result [facility] [address] [place] [address], * (ABNORMAL) Complete blood count (02/03/2025 10:08 AM EDT) WBC 6.5 4.8 - 10.8 K/mcL LAB HEMETOLOGY METHOD 02/03/2025 11:32 AM EDT [facility] RBC 3.00(L) 3.80 - 4.80 M/mcL LAB HEMETOLOGY METHOD 02/03/2025 11:32 AM [facility] Hemoglobin 9.3(L) 11.5 - 16.0 g/dL LAB HEMETOLOGY METHOD 02/03/2025 11:32 AM [facility] Hematocrit 29.1(L) 35.0 - 47.0 % LAB HEMETOLOGY METHOD 02/03/2025 11:32 AM [facility] MCV 96.4 79.0 - 98.0 FL LAB HEMETOLOGY METHOD 02/03/2025 11:32 AM [facility] MCH 30.8 27.0 - 32.0 pcg LAB HEMETOLOGY METHOD 02/03/2025 11:32 AM [facility] MCHC 32.0 32.0 - 37.0 g/dL LAB HEMETOLOGY METHOD 02/03/2025 11:32 AM [facility] RDW 14.2 11.0 - 15.0 % LAB HEMETOLOGY METHOD 02/03/2025 11:32 AM [facility] Platelets 202 130 - 400 K/mcL LAB HEMETOLOGY METHOD 02/03/2025 11:32 AM [facility] MPV 11.3(H) 7.0 - 11.0 FL LAB HEMETOLOGY METHOD 02/03/2025 11:32 AM [facility] NRBC 0.0 <1.0 % LAB HEMETOLOGY METHOD 02/03/2025 11:32 AM [facility] NRBC Absolute 0.00 <0.10 K/mcL LAB HEMETOLOGY METHOD 02/03/2025 11:32 AM [facility] Blood Venous blood specimen / Unknown Venipuncture / Unknown 02/03/2025 10:08 AM EDT 02/03/2025 11:07 AM EDT us Yousuf Thorpe MD LAB BLOOD ORDERABLES Final Result Performing Organization Address City/[facility]/ZIP Co de Phone Number [facility] [address] [place] [address], [place] [phone] * Ferritin (02/03/2025 10:08 AM EDT) [facility] Ferritin 22 8 - 252 ng/mL LAB CHEMISTRY METHOD 02/03/2025 12:19 PM EDT [facility] Blood Venous blood specimen / Unknown Venipuncture / Unknown 02/03/2025 10:08 AM EDT 02/03/2025 11:06 AM EDT us Yousuf Thorpe MD LAB BLOOD ORDERABLES Final Result Performing Organization Address [facility] de Phone Number [facility] [address] [place] [address], [place] [phone] * (ABNORMAL) CBC auto differential (02/01/2025 10:15 AM EDT) [facility] WBC 6.4 4.8 - 10.8 K/mcL LAB HEMETOLOGY METHOD 02/01/2025 11:46 AM EDT [facility] RBC 3.30(L) 3.80 - 4.80 M/mcL LAB HEMETOLOGY METHOD 02/01/2025 11:46 AM EDT [facility] Hemoglobin 10.1(L) 11.5 - 16.0 g/dL LAB HEMETOLOGY METHOD 02/01/2025 11:46 AM EDT [facility] Hematocrit 31.6(L) 35.0 - 47.0 % LAB HEMETOLOGY METHOD 02/01/2025 11:46 AM EDT [facility] MCV 96.9 79.0 - 98.0 FL LAB HEMETOLOGY METHOD 02/01/2025 11:46 AM EDT [facility] MCH 31.0 27.0 - 32.0 pcg LAB HEMETOLOGY METHOD 02/01/2025 11:46 AM [facility] MCHC 32.0 32.0 - 37.0 g/dL LAB HEMETOLOGY METHOD 02/01/2025 11:46 AM [facility] RDW 13.9 11.0 - 15.0 % LAB HEMETOLOGY METHOD 02/01/2025 11:46 AM [facility] Platelets 201 130 - 400 K/mcL LAB HEMETOLOGY METHOD 02/01/2025 11:46 AM [facility] MPV 11.4(H) 7.0 - 11.0 FL LAB HEMETOLOGY METHOD 02/01/2025 11:46 AM [facility] NRBC 0.0 <1.0 % LAB HEMETOLOGY METHOD 02/01/2025 11:46 AM [facility] NRBC Absolute 0.00 <0.10 K/mcL LAB HEMETOLOGY METHOD 02/01/2025 11:46 AM [facility] Neutrophils Relative 61.0 % LAB HEMETOLOGY METHOD 02/01/2025 11:46 AM [facility] Lymphocytes Relative 29.9 % LAB HEMETOLOGY METHOD 02/01/2025 11:46 AM [facility] Monocytes Relative 6.3 % LAB HEMETOLOGY METHOD 02/01/2025 11:46 AM [facility] Eosinophils Relative 1.9 % LAB HEMETOLOGY METHOD 02/01/2025 11:46 AM [facility] Basophils Relative 0.6 % LAB HEMETOLOGY METHOD 02/01/2025 11:46 AM [facility] Immature Granulocytes Relative 0.3 % LAB HEMETOLOGY METHOD 02/01/2025 11:46 AM [facility] Neutrophils Absolute 3.87 1.50 - 7.00 K/mcL LAB HEMETOLOGY METHOD 02/01/2025 11:46 AM EDT [facility] Lymphocytes Absolute 1.90 1.00 - 5.00 K/mcL LAB HEMETOLOGY METHOD 02/01/2025 11:46 AM EDT [facility] Monocytes Absolute 0.40 0.20 - 1.00 K/mcL LAB HEMETOLOGY METHOD 02/01/2025 11:46 AM EDT [facility] Eosinophils Absolute 0.12 0.00 - 0.50 K/[facility] LAB HEMETOLOGY METHOD 02/01/2025 11:46 AM EDT [facility] Basophils Absolute 0.04 0.00 - 0.20 K/mcL LAB HEMETOLOGY METHOD 02/01/2025 11:46 AM EDT [facility] Immature Granulocytes Absolute 0.02 0.00 - 0.03 K/[facility] LAB HEMETOLOGY METHOD 02/01/2025 11:46 AM EDT [facility] Blood Venous blood specimen / Unknown Venipuncture / Unknown 02/01/2025 10:15 AM EDT 02/01/2025 11:33 AM EDT us Nano Brown MD LAB BLOOD ORDERABLES Final Res ult [facility] [address] [place] [address], from Last [address] [place] [address] [place] [address] MEDICARE [employer] Care Teams Flowers Salesperson Relationship Specialty Start Date End Date Sugey Rice MD [address] [phone] PCP - General Family Medicine 10/07/24
--- OUTSIDE RECORDS SUMMARY | 2025-03-17 10:28 | XMS_ITS | Encounter Summary ---
Author Organization [facility] Address [address] [place] [address] Care Team Providers Care Bell Tier Name Role Phone Sugey Rice MD Primary Care Provider [phone] Encounter Details Date Type Department Care Team (Late st Contact Info) Description 05/29/2023 Scanned Document Orthopedic [address] [phone] Leif Reed MD [address] [place] [address] Social History Tobacco Use Types Packs/Day Years [...] 10:00 AM EDT [facility] [address] [place] [address] Gurjit Steele MD [address] [place] [address] 06/29/2025 10:30 AM EDT Office Visit [facility] Urology [place] [address] [place] [address] Josef Loya MD [address] [place] [address] documented as of this encounter Visit Diagnoses Not on filedocumented in this encounter Care Teams Bell Tier Relationship Specialty Start Date End Date Sugey Rice MD [address] [address] PCP - General Family Medicine 05/05/23 documented as of this encounter
--- OUTSIDE RECORDS SUMMARY | 2025-03-17 10:28 | XMS_ITS | Encounter Summary ---
Author Organization [facility] Address [address] [place] [address] Phone Care Team Providers Care Piston Maker Name Role Phone Sugey Rice MD Primary Care Provider [phone] Encounter Details Date Type Department Care Team (Late Contact Info) Description 07/22/2023 Documentation Only [facility] [place], [address] [place] [address] Leonardo Stovall DO [address] [place] [address] Social History Tobacco Use Types [...] Visit [facility] [place] [facility] [place] [address] [place] [phone] Leonardo Stovall DO [address] [place] [address] documented as of this encounter Visit Diagnoses Not on filedocumented in this encounter Care Teams Piston Maker Relationship Specialty Start Date End Date Sugey Rice MD [address] [address] PCP - General Family Medicine 09/04/21 documented as of this encounter
--- OUTSIDE RECORDS SUMMARY | 2025-03-17 10:28 | XMS_ITS | Encounter Summary ---
Author Organization [facility] Address [address] [place] [address] Phone Care Team Providers Care Captain Fire Prevention Bureau Name Role Phone Sugey Rice MD Primary Care Provider [phone] Encounter Details Date Type Department Care Team (Late st Contact Info) Description 03/19/2024 Documentation Only [facility] [place], [address] [place] [phone] [place], [place] [address] [place] [address] Social History Tobacco Use Types [...] Visit [facility] [place] [facility] [place] [address] [place] [phone] Leonardo Stovall [address] [address] [place] [address] documented as of this encounter Visit Diagnoses Not on filedocumented in this encounter Care Teams Captain Fire Prevention Bureau Relationship Specialty Start Date End Date Sugey Rice MD [address] [phone] PCP - General Family Medicine 09/04/21 documented as of this encounter
--- OUTSIDE RECORDS SUMMARY | 2025-03-17 10:28 | XMS_ITS | Encounter Summary ---
Author Organization [facility] [place], Address [address] [place] [address] Phone Care Team Providers Care Faculty I On Call Medical Assistant Name Role Phone Sugey Rice MD Primary Care Provider [phone] Encounter Details Date Type Department Care Team (Late st Contact Info) Description 03/14/2025 Telephone [facility] [place], [address] [place] [address] Brook Velez [address] [place] [address] Social History Tobacco Use Types Packs/Day Years Used Date Smoking Tobacco: Never Comments Unknown Sex and Gender Information Value Date Recorded Sex Assigned at Not on file Legal Sex Female 3:19 PM EDT Gender Identity Not on file Sexual Orientation Not on file documented as of this encounter Miscellaneous Notes * Telephone Encounter - Brook Velez - 03/14/2025 9:19 AM EDT Hi Danita Rutledge called to question Amlodipine 5mg-- it's not in any notes stating to be dc but has been deleted off her med list as of November of this year; the only changes I can confirm by your notes is switching Lisinopril to Losartan. She stated she has been taking the amlodipine-- please advise, thanks. documented in this encounter Plan of Treatment Upcoming Encounters Date Type Department Care Team (Late st Contact Info) Description 05/03/2025 4:15 PM EDT Office Visit [facility] [address] [place] [address] Leonardo Stovall DO [address] [place] [phone] documented as of this encounter Visit Diagnoses Not on filedocumented in this encounter Care Teams Faculty I On Call Medical Assistant Relationship Specialty Start Date End Date Sugey Rice MD [address] [address] PCP - General Family Medicine 09/04/21 documented as of this encounter
--- OUTSIDE RECORDS SUMMARY | 2025-03-17 10:28 | XMS_ITS | Encounter Summary ---
Author Organization [facility] Address [address] [place] [address] Care Team Providers Care Radiation Oncologist Name Role Phone Sugey Rice MD Primary Care Provider [phone] Encounter Details Date Type Department Care Team (Late st Contact Info) Description 01/02/2022 Erroneous Encounter [facility] [address] [place] [phone] Provider, MD Frank Social History Tobacco Use [...] AM EDT [facility] [address] [place] [address] Gurjit Steele MD 31 [facility] [address] [place] [address] 06/29/2025 10:30 AM EDT Office Visit [facility] Urology [place] [address] [place] [address] Josef Loya MD 80 [place] [address] documented as of this encounter Visit Diagnoses Not on filedocumented in this encounter Care Teams Radiation Oncologist Relationship Specialty Start Date End Date Sugey Rice MD [address] [address] PCP - General Family Medicine 05/05/23 documented as of this encounter
--- OUTSIDE RECORDS SUMMARY | 2025-03-17 10:28 | XMS_ITS | Encounter Summary ---
Author Organization [facility] Address [address] [place] [address] Care Team Providers Care Elementary School Music Teacher Name Role Phone Sugey Rice MD Primary Care Provider [phone] Reason for Visit * Reason Comments Other Pre-op Encounter Details Date Type Department Care Team ([facility] st Contact Info) Description 03/15/2024 Telephone [facility] Urologic Surgery [place] [address] [address] Josef Loya MD [address] [place] [address] Other (Pre-op ) Social History Tobacco Use [...] AM EDT [facility] Visit [facility] [address] [place] [address] Gurjit Steele MD [address] [address] 06/29/2025 10:30 AM EDT Office Visit [facility] Urology [place] [address] [place] [phone] Josef Loya MD [address] [place] [address] documented as of this encounter Visit Diagnoses Not on filedocumented in this encounter Care Teams Elementary School Music Teacher Relationship Specialty Start Date End Date Sugey Rice MD [address] [place] [address] [address] [place] [address] PCP - General Family Medicine 05/05/23 documented as of this encounter
--- OUTSIDE RECORDS SUMMARY | 2025-03-17 10:28 | XMS_ITS | Encounter Summary ---
Author Organization [facility] Address [address] [place] [address] Phone Care Team Providers Care Vehicle Dismantler Name Role Phone Sugey Rice MD Primary Care Provider [phone] Encounter Details Date Type Department Care Team (Late st Contact Info) Description 12/10/2024 Documentation Only [facility] [place], [address] [facility] [place] [phone] [place], [place] [address] [place] [address] Social History Tobacco Use Types [...] Visit [facility] [place] [facility] [place] [address] [place] [phone] Leonardo Stovall [address] [facility] [place] [address] documented as of this encounter Visit Diagnoses Not on filedocumented in this encounter Care Teams Vehicle Dismantler Relationship Specialty Start Date End Date Sugey Rice MD [address] [phone] PCP - General Family Medicine 09/04/21 documented as of this encounter
--- OUTSIDE RECORDS SUMMARY | 2025-03-17 10:28 | XMS_ITS | Encounter Summary ---
Author Organization [facility] Address [address] [place] [address] Phone Care Team Providers Care Lunchroom Supervisor Name Role Phone Sugey Rice MD Primary Care Provider [phone] Encounter Details Date Type Department Care Team (Late st Contact Info) Description 12/17/2024 Documentation Only [facility] [place], [address] [place] [phone] [place], [place] [address] [place] [address] Social History Tobacco Use Types [...] [facility] [place] [facility] [place] [address] [place] [phone] Leonardo Stovall [address] [facility] [place] [phone] documented as of this encounter Visit Diagnoses Not on filedocumented in this encounter Care Teams Lunchroom Supervisor Relationship Specialty Start Date End Date Sugey Rice MD [address] [phone] PCP - General Family Medicine 09/04/21 documented as of this encounter
--- OUTSIDE RECORDS SUMMARY | 2025-03-17 10:29 | XMS_ITS | Clinical Summary ---
Author Organization [facility] Address [address] [place] [address] Care Team Providers Care Sales Representative [employer] Name Role Phone Pcp, No MD Primary [...] capsule Take by mouth. 2 Active cartilage-colla jkg-[id number]-zigaiy 40-5-3.3 mg tablet daily. Active lisinopriL (PRINIVIL) [...] to complete this topic Insurance [employer] MEDICARE PART A & B Care Teams Sales Representative Leather Goods Relationship Specialty Start Date End Date Gloria Zuñiga MD [address] [place] [address] PCP - General Internal Medicine 07/02/22
--- OUTSIDE RECORDS SUMMARY | 2025-03-17 10:29 | XMS_ITS | Data Portability ---
Author Organization [facility], Main Office Address [address] [facility] [address] [place] [id number] Care Team Providers Care Jewel Bearing Polisher Name Role Phone LAURA YUN Hand Striper KELLY KAN Card Hand [facility] Tape Fastener Machine Operator [facility] ERAPY (RONY ALONSO) Orthopedic Surgeon GAVI YEPEZ Service Center Manager JOSEPH BOONE Referring Provider [phone] HALEIGH CANTOR Lease Administration Analyst NII YATES Primary Care Provider [phone] MALIK SHAHID Diesel Engine Fitter JULIETA LAND Diet Clerk GURJIT STEELE Orthopedic Surgeon KASSIE LAZO Diamond Mounter BREEZY GARCIA Diamond Mounter Assessment Encounter Date Assessment Date Assessment LastModified [...] Lab magnesium , serum or plasma 2023 [facility], [address], [address], [place], [id number], 10/07/2024 08:09:37 lipid panel, serum 2023 024 [facility], [address], [address], [place], [address], 10/07/2024 08:09:32 aspartate aminotran sferase/a lanine aminotran [...] in A1c), blood 2023 [facility], [address], [address], [place], [address], 10/07/2024 08:09:34 vitamin D, 25-hydrox y, total, serum 2023 [facility], [address], [address], [place], [address], 10/07/2024 08:09:35 CBC w/ auto diff 2023 [facility] (Centralized Electronic Ordering - All Locations), Patient Can Go To The Location Of Their Choice, 08/05/2024 08:08:58 respirato ry allergen panel - [facility] states a 2023 [facility] (Centralized Electronic Ordering - All Locations), Patient Can Go To The Location Of Their Choice, 08/09/2024 10:05:57 BNP (B-type natriuret ic peptide), serum or plasma 2023 [facility] (Centralized Electronic Ordering - All Locations), Patient Can Go To The Location Of Their Choice, [id number] 08/09/2024 10:05:55 procalcit onin, serum 2023 [facility] (Centralized Electronic Ordering - All Locations), Patient Can Go To The Location Of Their Choice, [id number] 08/09/2024 10:05:56 Referral sleep medicine referral - New onset of atrial flutter in obese pt. recommend polysomno gram. 2023 [facility] , [address], [place], [address], 11/09/2024 11:15:20 Procedures None recorded. Surgeries None recorded. Imaging MAMMO, screening , bilateral - Perform Diagnosti c Mammogram and Breast Ultrasoun d if needed / Perform Ultrasoun d Guided Aspiratio n and/or Breast Biopsy if warranted 2023 [facility], [address], [place], [address], 11/04/2024 11:16:20 electroca rdiogram 2023 [email or web address] In-Office Order, Internal Use Only DO Not Attach Compendium DO Not Attach Compendium, Do Not Delete/merge, [id number] 08/25/2024 10:25:17 XR, chest, 2 view 2023 024 [facility] In-Office Order, Internal Use Only DO Not Attach Compendium DO Not Attach Compendium, Do Not Delete/merge, [id number] 08/04/2024 19:53:34 Medication Orders Flonase Sensimist 27.5 mcg/actua tion nasal spray,yakelin pension 2023 024 [id number], [address], [place], [address], 08/03/2024 13:53:59 Saline Mist 0.65 % nasal spray aerosol 2023 024 [id number], [address], [place], [address], 08/03/2024 13:53:58 albuterol sulfate HFA 90 mcg/actua tion aerosol inhaler [address] [id number], [address], [place], [address], 08/03/2024 13:55:03 Patient TargetsNo targets recorded. Patient Instructions Encounter Date Encounter Id Patient Instructions Last Modified By Organization Details Last Modified Time 08/03/2024 [id number] allergies: care instructions [email or web address] Not available 08/03/2024 13:53:54 saline nasal washes: care instructions ckokar Not available 08/03/2024 13:53:54 cough: care instructions ckokar Not available 08/03/2024 13:48:08 10/05/2024 [id number] advance care planning: care instructions [email or web address] Not available 10/05/2024 10:34:44 preventing falls : care instructions ckokar Not available 10/05/2024 10:34:44 medicare preventive services guide (female 74yrs and under) [email or web address] Not available 10/05/2024 10:34:44 well visit, over 65: care instructions ckokar Not available 10/05/2024 10:34:44 11/04/2024 [id number] During [facility] f/u call, all current and discharge medications (OTC, herbal therapies, supplements) reviewed and reconciled with patient, including potential side effects, drug interactions, instructions, and the consequences of not taking medication. Reviewed potential barriers to medication adherence, such as side effects from medication or cost of medication. clayton Not available 11/04/2024 09:14:17 11/09/2024 [id number] hypothyroidism: care instructions [email or web address] Not available 11/09/2024 11:00:23 At [facility] follow up visit, all current [...] Abnormal Flag Note LastModifiedBy Organization Detail LastModifiedTime 02/02/20 25 02/01/2025 CBC WITH AUTO DIFFE RENTI AL WBC 6.4 K/mcL 4.8-10 .8 Not Available [address], [address], 02/01/2025 11:48:03 02/02/20 25 02/01/2025 CBC WITH AUTO DIFFE RENTI AL RBC 3.30 M/mcL 3.80-4 .80 low Not Available [address], [address], 02/01/2025 11:48:03 02/02/20 25 02/01/2025 CBC WITH AUTO DIFFE RENTI AL hemoglobin 10.1 g/dL 11.5-1 6.0 low Not Available [address], [address], 02/01/2025 11:48:03 02/02/20 25 02/01/2025 CBC WITH AUTO DIFFE RENTI AL hematocrit 31.6 % 35.0-4 7.0 low Not Available [address], [address], 02/01/2025 11:48:03 02/02/20 25 02/01/2025 CBC WITH AUTO DIFFE RENTI AL MCV 96.9 fL 79.0-9 8.0 Not Available [address], [address], 02/01/2025 11:48:03 02/02/20 25 02/01/2025 CBC WITH AUTO DIFFE RENTI AL MCH 31.0 pcg 27.0-3 2.0 Not Available [address], [address], 02/01/2025 11:48:03 02/02/20 25 02/01/2025 CBC WITH AUTO DIFFE RENTI AL MCHC 32.0 g/dL 32.0-3 7.0 Not Available [address], [address], 02/01/2025 11:48:03 02/02/20 25 02/01/2025 CBC WITH AUTO DIFFE RENTI AL RDW 13.9 % 11.0-1 5.0 Not Available [address], [address], 02/01/2025 11:48:03 02/02/20 25 02/01/2025 CBC WITH AUTO DIFFE RENTI AL platelets 201 K/mcL 130-40 0 Not Available [address], [address], 02/01/2025 11:48:03 02/02/20 25 02/01/2025 CBC WITH AUTO DIFFE RENTI AL MPV 11.4 fL 7.0-11 .0 high Not Available [address], [address], 02/01/2025 11:48:03 02/02/20 25 02/01/2025 CBC WITH AUTO DIFFE RENTI AL NRBC 0.0 % <1.0 Not Available [address], [address], 02/01/2025 11:48:03 02/02/20 25 02/01/2025 CBC WITH AUTO DIFFE RENTI AL NRBC absolute 0.00 K/mcL <0.10 Not Available [address], [address], 02/01/2025 11:48:03 02/02/20 25 02/01/2025 CBC WITH AUTO DIFFE RENTI AL neutrophils relative 61.0 % Not Available [address], [address], 02/01/2025 11:48:03 02/02/20 25 02/01/2025 CBC WITH AUTO DIFFE RENTI AL lymphocytes relative 29.9 % Not Available [address], [address], 02/01/2025 11:48:03 02/02/20 25 02/01/2025 CBC WITH AUTO DIFFE RENTI AL monocytes relative 6.3 % Not Available [address], [address], 02/01/2025 11:48:03 02/02/20 25 02/01/2025 CBC WITH AUTO DIFFE RENTI AL eosinophils relative 1.9 % Not Available [address], [address], 02/01/2025 11:48:03 02/02/20 25 02/01/2025 CBC WITH AUTO DIFFE RENTI AL basophils relative 0.6 % Not Available [address], [address], 02/01/2025 11:48:03 02/02/20 25 02/01/2025 CBC WITH AUTO DIFFE RENTI AL immature granulocytes relative 0.3 % Not Available [address], [address], 02/01/2025 11:48:03 02/02/20 25 02/01/2025 CBC WITH AUTO DIFFE RENTI AL neutrophils absolute 3.87 K/mcL 1.50-7 .00 Not Available [address], [address], 02/01/2025 11:48:03 03/18/20 25 02/01/2025 CBC WITH AUTO DIFFE RENTI AL lymphocytes absolute 1.90 K/mcL 1.00-5 .00 Not Available [address], [address], 02/01/2025 11:48:03 02/02/20 25 02/01/2025 CBC WITH AUTO DIFFE RENTI AL monocytes absolute 0.40 K/mcL 0.20-1 .00 Not Available [address], [address], 02/01/2025 11:48:03 02/02/20 25 02/01/2025 CBC WITH AUTO DIFFE RENTI AL eosinophils absolute 0.12 K/mcL 0.00-0 .50 Not Available [address], [address], 02/01/2025 11:48:03 02/02/20 25 02/01/2025 CBC WITH AUTO DIFFE RENTI AL basophils absolute 0.04 K/mcL 0.00-0 .20 Not Available [address], [address], 02/01/2025 11:48:03 02/02/20 25 02/01/2025 CBC WITH AUTO DIFFE RENTI AL immature granulocytes absolute 0.02 K/mcL 0.00-0 .03 Not Available [address], [address], 02/01/2025 11:48:03 02/02/20 25 02/01/2025 CBC WITH AUTO DIFFE RENTI AL note See Report [facility], [address], [place], [facility] [place] [address] Not Available [address], [address], 02/01/2025 11:48:03 08/04/20 24 08/05/2024 URINA LYSIS , ROUTI NE specific gravity 1.019 1.005- 1.030 normal Not Available [facility] ([facility]) [address] [facility], [place], [address], 08/05/2024 08:08:57 08/04/20 24 08/05/2024 URINA LYSIS , ROUTI NE pH 6.0 5.0-7. 5 normal Not Available [facility] ([facility]) [address] [facility], [place], [address], 08/05/2024 08:08:57 08/04/20 24 08/05/2024 URINA LYSIS , ROUTI NE urine-color Yellow yellow Not Available [facility] ([facility]) [address] [place], [address], 08/05/2024 08:08:57 08/04/20 24 08/05/2024 URINA LYSIS , ROUTI NE appearance Clear clear Not Available [facility] ([facility]) [address] [place], [address], 08/05/2024 08:08:57 08/04/20 24 08/05/2024 URINA LYSIS , ROUTI NE WBC esterase Negati ve negati ve Not Available [facility] ([facility]) [address] [place], [address], 08/05/2024 08:08:57 08/04/20 24 08/05/2024 URINA LYSIS , ROUTI NE protein Negati ve negati ve/tra ce Not Available [facility] ([facility]) [address] [place], [address], 08/05/2024 08:08:57 08/04/20 24 08/05/2024 URINA LYSIS , ROUTI NE glucose Negati ve negati ve Not Available [facility] ([facility]) [address] [place], [address], 08/05/2024 08:08:57 08/04/20 24 08/05/2024 URINA LYSIS , ROUTI NE ketones Negati ve negati ve Not Available [facility] ([facility]) [address] [facility], [place], [address], 08/05/2024 08:08:57 08/04/20 24 08/05/2024 URINA LYSIS , ROUTI NE occult blood Negati ve negati ve Not Available [facility] ([facility]) [address] [facility], [place], [address], 08/05/2024 08:08:57 08/04/20 24 08/05/2024 URINA LYSIS , ROUTI NE bilirubin Negati ve negati ve Not Available [facility] ([facility]) [address] [facility], [place], [address], 08/05/2024 08:08:57 08/04/20 24 08/05/2024 URINA LYSIS , ROUTI NE urobilinogen ,semi-qn 0.2 mg/dL 0.2-1. 0 normal Not Available [facility] ([facility]) [address] [facility], [place], [address], 08/05/2024 08:08:57 08/04/20 24 08/05/2024 URINA LYSIS , ROUTI NE nitrite, urine Negati ve negati ve Not Available [facility] ([facility]) [address] [facility], [place], [address], 08/05/2024 08:08:57 08/04/20 24 08/05/2024 URINA LYSIS , ROUTI NE microscopic examination Commen t Micro scopi c follo ws if indic ated. Not Available [facility] ([facility]) [address] [facility], [place], [address], 08/05/2024 08:08:57 08/04/20 24 08/05/2024 CBC WITH DIFFE RENTI AL/PL ATELE T WBC 5.9 x10e3 /uL 3.4-10 .8 normal Not Available [facility] ([facility]) [address] [facility], [place], [address], 08/05/2024 08:08:58 08/04/20 24 08/05/2024 CBC WITH DIFFE RENTI AL/PL ATELE T RBC 4.59 x10e6 /uL 3.77-5 .28 normal Not Available [facility] ([facility]) [address] [facility], [place], [address], 08/05/2024 08:08:58 08/04/20 24 08/05/2024 CBC WITH DIFFE RENTI AL/PL ATELE T hemoglobin 13.9 g/dL 11.1-1 5.9 normal Not Available [facility] ([facility]) [address] [facility], [place], [address], 08/05/2024 08:08:58 08/04/20 24 08/05/2024 CBC WITH DIFFE RENTI AL/PL ATELE T hematocrit 43.2 % 34.0-4 6.6 normal Not Available [facility] ([facility]) [address] [place], [address], 08/05/2024 08:08:58 08/04/20 24 08/05/2024 CBC WITH DIFFE RENTI AL/PL ATELE T MCV 94 fL 79-97 normal Not Available [facility] ([facility]) [address] [place], [address], 08/05/2024 08:08:58 08/04/20 24 08/05/2024 CBC WITH DIFFE RENTI AL/PL ATELE T MCH 30.3 pg 26.6-3 3.0 normal Not Available [facility] ([facility]) [address] [place], [address], 08/05/2024 08:08:58 08/04/20 24 08/05/2024 CBC WITH DIFFE RENTI AL/PL ATELE T MCHC 32.2 g/dL 31.5-3 5.7 normal Not Available [facility] ([facility]) [address] [facility], [place], [address], 08/05/2024 08:08:58 08/04/20 24 08/05/2024 CBC WITH DIFFE RENTI AL/PL ATELE T RDW 11.7 % 11.7-1 5.4 Not Available [facility] ([facility]) [address] [facility], [place], [address], 08/05/2024 08:08:58 08/04/20 24 08/05/2024 CBC WITH DIFFE RENTI AL/PL ATELE T platelets 182 x10e3 /uL 150-45 0 normal Not Available [facility] ([facility]) [address] [facility], [place], [address], 08/05/2024 08:08:58 08/04/20 24 08/05/2024 CBC WITH DIFFE RENTI AL/PL ATELE T neutrophils 64 % not estab. normal Not Available [facility] ([facility]) [address] [facility], [place], [address], 08/05/2024 08:08:58 08/04/20 24 08/05/2024 CBC WITH DIFFE RENTI AL/PL ATELE T lymphs 25 % not estab. normal Not Available [facility] ([facility]) [address] [facility], [place], [address], 08/05/2024 08:08:58 08/04/20 24 08/05/2024 CBC WITH DIFFE RENTI AL/PL ATELE T monocytes 7 % not estab. normal Not Available [facility] ([facility]) [address] [facility], [place], [address], 08/05/2024 08:08:58 08/04/20 24 08/05/2024 CBC WITH DIFFE RENTI AL/PL ATELE T eos 3 % not estab. normal Not Available [facility] ([facility]) [address] [facility], [place], [address], 08/05/2024 08:08:58 08/04/20 24 08/05/2024 CBC WITH DIFFE RENTI AL/PL ATELE T basos 1 % not estab. normal Not Available [facility] ([facility]) [address] [facility], [place], [address], 08/05/2024 08:08:58 08/04/20 24 08/05/2024 CBC WITH DIFFE RENTI AL/PL ATELE T immature cells INSTRUCTIONAL COORDINATOR Not Available [facility] ([facility]) [address] [place], [address], 08/05/2024 08:08:58 08/04/20 24 08/05/2024 CBC WITH DIFFE RENTI AL/PL ATELE T neutrophils (absolute) 3.8 x10e3 /uL 1.4-7. 0 normal Not Available [facility] ([facility]) [address] [place], [address], 08/05/2024 08:08:58 08/04/20 24 08/05/2024 CBC WITH DIFFE RENTI AL/PL ATELE T lymphs (absolute) 1.5 x10e3 /uL 0.7-3. 1 normal Not Available [facility] ([facility]) [address] [place], [address], 08/05/2024 08:08:58 08/04/20 24 08/05/2024 CBC WITH DIFFE RENTI AL/PL ATELE T monocytes(ab solute) 0.4 x10e3 /uL 0.1-0. 9 normal Not Available [facility] ([facility]) [address] [place], [address], 08/05/2024 08:08:58 08/04/20 24 08/05/2024 CBC WITH DIFFE RENTI AL/PL ATELE T eos (absolute) 0.2 x10e3 /uL 0.0-0. 4 normal Not Available [facility] ([facility]) [address], [place], [address], 08/05/2024 08:08:58 08/04/20 24 08/05/2024 CBC WITH DIFFE RENTI AL/PL ATELE T baso (absolute) 0.1 x10e3 /uL 0.0-0. 2 normal Not Available [facility] ([facility]) [address] [facility], [place], [address], 08/05/2024 08:08:58 08/04/20 24 08/05/2024 CBC WITH DIFFE RENTI AL/PL ATELE T immature granulocytes 0 % not estab. Not Available [facility] ([facility]) [address] [facility], [place], [address], 08/05/2024 08:08:58 08/04/20 24 08/05/2024 CBC WITH DIFFE RENTI AL/PL ATELE T immature grans (abs) 0.0 x10e3 /uL 0.0-0. 1 Not Available [facility] ([facility]) [address] [facility], [place], [address], 08/05/2024 08:08:58 08/04/20 24 08/05/2024 CBC WITH DIFFE RENTI AL/PL ATELE T NRBC INSTRUCTIONAL COORDINATOR Not Available [facility] ([facility]) [address] [facility], [place], [address], 08/05/2024 08:08:58 08/04/20 24 08/05/2024 CBC WITH DIFFE RENTI AL/PL ATELE T hematology comments: INSTRUCTIONAL COORDINATOR Not Available [facility] ([facility]) [address] [facility], [place], [address], 08/05/2024 08:08:58 08/04/20 24 08/05/2024 URINA LYSIS , COMPL ETE microscopic examination See below: Micro scopi c was indic ated and was perfo rmed. Not Available [facility] ([facility]) [address] [facility], [place], [address], 08/05/2024 08:08:59 08/04/20 24 08/05/2024 URINA LYSIS , COMPL ETE WBC 0-5 /hpf 0 - 5 Not Available [facility] ([facility]) [address] [facility], [place], [address], 08/05/2024 08:08:59 08/04/20 24 08/05/2024 URINA LYSIS , COMPL ETE RBC 0-2 /hpf 0 - 2 Not Available [facility] ([facility]) [address] [facility], [place], [address], 08/05/2024 08:08:59 08/04/20 24 08/05/2024 URINA LYSIS , COMPL ETE epithelial cells (non renal) None seen /hpf 0 - 10 Not Available [facility] ([facility]) [address] [facility], [place], [address], 08/05/2024 08:08:59 08/04/20 24 08/05/2024 URINA LYSIS , COMPL ETE epithelial cells (renal) INSTRUCTIONAL COORDINATOR Not Available [facility] ([facility]) [address] [facility], [place], [address], 08/05/2024 08:08:59 08/04/20 24 08/05/2024 URINA LYSIS , COMPL ETE casts None seen /lpf none seen Not Available [facility] ([facility]) [address] [facility], [place], [address], 08/05/2024 08:08:59 08/04/20 24 08/05/2024 URINA LYSIS , COMPL ETE cast type INSTRUCTIONAL COORDINATOR Not Available [facility] ([facility]) [address] [facility], [place], [address], 08/05/2024 08:08:59 08/04/20 24 08/05/2024 URINA LYSIS , COMPL ETE crystals INSTRUCTIONAL COORDINATOR Not Available [facility] ([facility]) [address] [facility], [place], [address], 08/05/2024 08:08:59 08/04/20 24 08/05/2024 URINA LYSIS , COMPL ETE crystal type INSTRUCTIONAL COORDINATOR Not Available [facility] ([facility]) [address] [facility], [place], [address], 08/05/2024 08:08:59 08/04/20 24 08/05/2024 URINA LYSIS , COMPL ETE mucus threads INSTRUCTIONAL COORDINATOR Not Available [facility] ([facility]) [address] [facility], [place], [address], 08/05/2024 08:08:59 08/04/20 24 08/05/2024 URINA LYSIS , COMPL ETE bacteria Few none seen/f ew Not Available [facility] ([facility]) [address] [facility], [place], [address], 08/05/2024 08:08:59 08/04/20 24 08/05/2024 URINA LYSIS , COMPL ETE yeast INSTRUCTIONAL COORDINATOR Not Available [facility] ([facility]) [address] [facility], [place], [address], 08/05/2024 08:08:59 08/04/20 24 08/05/2024 URINA LYSIS , COMPL ETE trichomonas INSTRUCTIONAL COORDINATOR Not Available [facility] ([facility]) [address] [facility], [place], [address], 08/05/2024 08:08:59 08/04/20 24 08/05/2024 URINA LYSIS , COMPL ETE comment INSTRUCTIONAL COORDINATOR Not Available [facility] ([facility]) [address] [place], [address], 08/05/2024 08:08:59 08/04/20 24 08/05/2024 UA WITH CULTU RE REFLE X urinalysis reflex Commen t This speci men will not refle x to a Urine Cultu re. Not Available [facility] ([facility]) [address] [facility] [place], [address], 08/05/2024 08:08:59 08/04/20 24 08/05/2024 BASIC METAB OLIC PANEL (8) glucose 129 mg/dL 70-99 above high normal Not Available [facility] ([facility]) [address] [facility] [place], [address], 08/05/2024 08:09:00 08/04/20 24 08/05/2024 BASIC METAB OLIC PANEL (8) BUN 29 mg/dL 8-27 above high normal Not Available [facility] ([facility]) [address] [facility] [place], [address], 08/05/2024 08:09:00 08/04/20 24 08/05/2024 BASIC METAB OLIC PANEL (8) creatinine 1.59 mg/dL 0.57-1 .00 above high normal Not Available [facility] ([facility]) [address] [facility], [place], [address], 08/05/2024 08:09:00 08/04/2008/05/2024 BASIC METAB OLIC PANEL (8) eGFR 35 mL/mi n/1.7 3 >59 below low normal Not Available [facility] ([facility]) [address] [facility] [place], [address], 08/05/2024 08:09:00 08/04/2008/05/2024 BASIC METAB OLIC PANEL (8) BUN/creatini ne ratio 18 12-28 normal Not Available [facility] ([facility]) [address] [facility] [place], [address], 08/05/2024 08:09:00 08/04/20 24 08/05/2024 BASIC METAB OLIC PANEL (8) sodium 140 mmol/ L 134-14 4 normal Not Available [facility] ([facility]) [address] [place], [address], 08/05/2024 08:09:00 08/04/20 24 08/05/2024 BASIC METAB OLIC PANEL (8) potassium 4.8 mmol/ L 3.5-5. 2 normal Not Available [facility] ([facility]) [address] [place], [address], 08/05/2024 08:09:00 08/04/20 24 08/05/2024 BASIC METAB OLIC PANEL (8) chloride 103 mmol/ L 96-106 normal Not Available [facility] ([facility]) [address] [facility] [place], [address], 08/05/2024 08:09:00 08/04/20 24 08/05/2024 BASIC METAB OLIC PANEL (8) carbon dioxide, total 21 mmol/ L 20-29 normal Not Available [facility] ([facility]) [address] [place], [address], 08/05/2024 08:09:00 08/04/20 24 08/05/2024 BASIC METAB OLIC PANEL (8) calcium 9.3 mg/dL 8.7-10 .3 normal Not Available [facility] ([facility]) [address] [place], [address], 08/05/2024 08:09:00 08/04/20 24 08/05/2024 B-TYP E NATRI URETI C PEPTI DE B-type natriuretic peptide 43.1 pg/mL 0.0-10 0.0 Sieme ns [facility] metho dolog y Not Available [facility] ([facility]) [address] [place], [address], 08/09/2024 10:05:55 08/04/20 24 08/06/2024 PROCA LCITO SRAVANI procalcitoni n 0.06 NG/mL 0.00-0 .08 A proca lcito sravani (PCT) level above 2.0 ng/mL on the first day of ICU admlisbeth singh is assoc iated with a high risk [...] ng/mL are obtai neela. Not Available [facility] ([facility]) [address] [facility], [place], [address], 08/09/2024 10:05:56 08/04/20 24 08/04/2024 ALLER GENS [...] >100. 00 Very High Not Available [facility] ([facility]) [address] [facility], [place], [address], 08/09/2024 10:05:57 08/04/20 24 08/07/2024 ALLER GENS W/TOT AL IGE AREA 1 immunoglobul in E, total 24 IU/mL 6-495 Not Available [facility] ([facility]) [address] [facility], [place], [address], 08/09/2024 10:05:57 08/04/20 24 08/07/2024 ALLER GENS W/TOT AL IGE AREA 1 [id number] D pteronyssinu s <0.10 kU/L class 0 Not Available [facility] ([facility]) [address] [facility], [place], [address], 08/09/2024 10:05:57 08/04/20 24 08/07/2024 ALLER GENS W/TOT AL IGE AREA 1 [id number] D farinae <0.10 kU/L class 0 Not Available [facility] ([facility]) [address] [facility], [place], [address], 08/09/2024 10:05:57 08/04/20 24 08/07/2024 ALLER GENS W/TOT AL IGE AREA 1 [id number] CAT dander <0.10 kU/L class 0 Not Available [facility] ([facility]) [address] [place], [address], 08/09/2024 10:05:57 08/04/20 24 08/07/2024 ALLER GENS W/TOT AL IGE AREA 1 [id number] dog dander <0.10 kU/L class 0 Not Available [facility] ([facility]) [address] [place], [address], 08/09/2024 10:05:57 08/04/20 24 08/07/2024 ALLER GENS W/TOT AL IGE AREA 1 [id number] bermuda grass <0.10 kU/L class 0 Not Available [facility] ([facility]) [address] [place], [address], 08/09/2024 10:05:57 08/04/20 24 08/07/2024 ALLER GENS W/TOT AL IGE AREA 1 [id number] breezy grass <0.10 kU/L class 0 Not Available [facility] ([facility]) [address] [place], [address], 08/09/2024 10:05:57 08/04/20 24 08/07/2024 ALLER GENS W/TOT AL IGE AREA 1 [id number] cockroach, mosotho <0.10 kU/L class 0 Not Available [facility] ([place] [facility]) [address] [place], [address], 08/09/2024 10:05:57 08/04/20 24 08/07/2024 ALLER GENS W/TOT AL IGE AREA 1 R752-RtM penicillium chrysogen <0.10 kU/L class 0 Not Available [facility] ([facility]) [address] [place], [address], 08/09/2024 10:05:57 08/04/20 24 08/07/2024 ALLER GENS W/TOT AL IGE AREA 1 P053-JgR cladosporium herbarum <0.10 kU/L class 0 Not Available [facility] ([facility]) [address] [place], [address], 08/09/2024 10:05:57 08/04/20 24 08/07/2024 ALLER GENS W/TOT AL IGE AREA 1 N910-VsA aspergillus fumigatus <0.10 kU/L class 0 Not Available [facility] ([place] [facility]) [address] [place], [address], 08/09/2024 10:05:57 08/04/20 24 08/07/2024 ALLER GENS W/TOT AL IGE AREA 1 K475-WbA alternaria alternata <0.10 kU/L class 0 Not Available [facility] ([place] [facility]) [address] [facility], [address], 08/09/2024 10:05:57 08/04/20 24 08/07/2024 ALLER GENS W/TOT AL IGE AREA 1 W071-PsM maple/box elder <0.10 kU/L class 0 Not Available [facility] ([place] [facility]) [address], [place], [address], 08/09/2024 10:05:57 08/04/20 24 08/07/2024 ALLER GENS W/TOT AL IGE AREA 1 J472-YgK common silver birch <0.10 kU/L class 0 Not Available [facility] ([place] [facility]) [address], [place], [address], 08/09/2024 10:05:57 08/04/20 24 08/07/2024 ALLER GENS W/TOT AL IGE AREA 1 V925-YqC cedar, mountain <0.10 kU/L class 0 Not Available [facility] ([place] [facility]) [address], [place], [address], 08/09/2024 10:05:57 08/04/20 24 08/07/2024 ALLER GENS W/TOT AL IGE AREA 1 R565-TsT oak, white <0.10 kU/L class 0 Not Available [facility] ([place] [facility]) [address], [place], [address], 08/09/2024 10:05:57 08/04/20 24 08/07/2024 ALLER GENS W/TOT AL IGE AREA 1 N641-FpY elm, sudanese <0.10 kU/L class 0 Not Available [facility] ([place] [facility]) [address], [place], [address], 08/09/2024 10:05:57 08/04/20 24 08/07/2024 ALLER GENS W/TOT AL IGE AREA 1 M271-LdM walnut <0.10 kU/L class 0 Not Available [facility] ([place] [facility]) [address], [place], [address], 08/09/2024 10:05:57 08/04/20 24 08/07/2024 ALLER GENS W/TOT AL IGE AREA 1 F924-WfM maple leaf sycamore <0.10 kU/L class 0 Not Available [facility] ([place] [facility]) [address], [place], [address], 08/09/2024 10:05:57 08/04/20 24 08/07/2024 ALLER GENS W/TOT AL IGE AREA 1 K207-TbU cottonwood <0.10 kU/L class 0 Not Available [facility] ([facility]) [address], [place], [address], 08/09/2024 10:05:57 08/04/20 24 08/07/2024 ALLER GENS W/TOT AL IGE AREA 1 F644-LfC jazlyn, white <0.10 kU/L class 0 Not Available [facility] ([place] [facility]) [address] [facility], [place], [address], 08/09/2024 10:05:57 08/04/20 24 08/07/2024 ALLER GENS W/TOT AL IGE AREA 1 Y287-XjZ white mulberry <0.10 kU/L class 0 Not Available [facility] ([facility]) [address] [facility], [place], [address], 08/09/2024 10:05:57 08/04/20 24 08/07/2024 ALLER GENS W/TOT AL IGE AREA 1 Z440-BzV ragweed, short <0.10 kU/L class 0 Not Available [facility] ([place] [facility]) [address] [facility], [place], [address], 08/09/2024 10:05:57 08/04/20 24 08/07/2024 ALLER GENS W/TOT AL IGE AREA 1 N392-ZuX mugwort <0.10 kU/L class 0 Not Available [facility] ([facility]) [address] [facility], [place], [address], 08/09/2024 10:05:57 08/04/20 24 08/07/2024 ALLER GENS W/TOT AL IGE AREA 1 V008-SlC pigweed, common <0.10 kU/L class 0 Not Available [facility] ([facility]) [address] [place], [address], 08/09/2024 10:05:57 08/04/20 24 08/07/2024 ALLER GENS W/TOT AL IGE AREA 1 X103-JkO sheep sorrel <0.10 kU/L class 0 Not Available [facility] ([facility]) [address] [facility], [place], [address], 08/09/2024 10:05:57 08/04/20 24 08/07/2024 ALLER GENS W/TOT AL IGE AREA 1 W861-BlF mouse urine <0.10 kU/L class 0 Not Available [facility] ([facility]) [address] [facility], [place], [address], 08/09/2024 10:05:57 10/06/20 24 10/06/2024 LIPID PANEL cholesterol, total 183 mg/dL 100-19 9 normal Not Available [facility] ([facility]) [address] [place], [address], 10/07/2024 08:09:32 10/06/20 24 10/06/2024 LIPID PANEL triglyceride s 119 mg/dL 0-149 normal Not Available [facility] ([facility]) [address] [place], [address], 10/07/2024 08:09:32 10/06/20 24 10/06/2024 LIPID PANEL HDL cholesterol 44 mg/dL >39 normal Not Available [facility] ([facility]) [address] [place], [address], 10/07/2024 08:09:32 10/06/20 24 10/06/2024 LIPID PANEL VLDL cholesterol roxane 21 mg/dL 5-40 Not Available [facility] ([facility]) [address] [place], [address], 10/07/2024 08:09:32 10/06/20 24 10/06/2024 LIPID PANEL LDL chol calc ([facility]) 118 mg/dL 0-99 above high normal Not Available [facility] ([facility]) [address] [place], [address], 10/07/2024 08:09:32 10/06/20 24 10/06/2024 LIPID PANEL LDL calc comment: INSTRUCTIONAL COORDINATOR Not Available [facility] ([facility]) [address] [place], [address], 10/07/2024 08:09:32 10/06/20 24 10/06/2024 ALT+A ST AST (SGOT) 13 IU/L 0-40 normal Not Available [facility] ([facility]) [address] [place], [address], 10/07/2024 08:09:33 10/06/20 24 10/06/2024 ALT+A ST ALT (SGPT) 12 IU/L 0-32 normal Not Available [facility] ([facility]) [address] [place], [address], 10/07/2024 08:09:33 10/06/20 24 10/06/2024 HEMOG LOBIN A1C hemoglobin A1C 5.9 % 4.8-5. 6 above high normal Predi abete s: 5.7 - 6.4 Diabe angela: >6.4 Glyce peña contr ol for adult s with diabe angela: <7.0 Not Available [facility] ([facility]) [address] [place], [address], 10/07/2024 08:09:34 11/20/10/07/2024 VITAM IN D, 25-HY DROXY vitamin D, [...] 1. IOM (Inst itute of Medic ine). 2010. Tushara ry refer ence randy es for calci um and D. Samantha chao [place]: The [facility] . 2. Ashley garcia MF, Meg forte [place], Echo off-F errar i ANGEL, et al. Evalu ation , treat ment, and preve ntion of vitam in D defic iency : an Endoc rine Socie ty clini roxane pract ice guide line. JCEM. 2010; 96(7) :1911 -30. Not Available [facility] ([facility]) [address] [place], [address], 10/07/2024 08:09:35 10/06/20 24 10/07/2024 TSH RFX ON ABNOR MAL TO FREE T4 TSH 2.080 uIU/m L 0.450- 4.500 normal Not Available [facility] ([facility]) [address] [place], [address], 10/07/2024 08:09:35 10/06/20 24 10/07/2024 MAGNE SIUM magnesium 2.1 mg/dL 1.6-2. 3 normal Not Available [facility] ([facility]) [address] [place], [address], 10/07/2024 08:09:36 12/05/19 25 12/06/2024 LIPID PANEL cholesterol, total 140 mg/dL 100-19 9 normal Not Available [facility] ([facility]) [address] [facility] [place], [address], 12/07/2024 06:07:13 12/05/19 25 12/06/2024 LIPID PANEL triglyceride s 81 mg/dL 0-149 normal Not Available [facility] ([facility]) [address] [facility] [place], [address], 12/07/2024 06:07:13 12/05/19 25 12/06/2024 LIPID PANEL HDL cholesterol 48 mg/dL >39 normal Not Available [facility] ([facility]) [address] [facility] [place], [address], 12/07/2024 06:07:13 12/05/19 25 12/06/2024 LIPID PANEL VLDL cholesterol roxane 16 mg/dL 5-40 Not Available [facility] ([facility]) [address] [place], [address], 12/07/2024 06:07:13 12/05/19 25 12/06/2024 LIPID PANEL LDL chol calc ([facility]) 76 mg/dL 0-99 Not Available [facility] ([facility]) [address] [facility] [place], [address], 12/07/2024 06:07:13 12/05/19 25 12/06/2024 LIPID PANEL LDL calc comment: INSTRUCTIONAL COORDINATOR Not Available [facility] ([facility]) [address] [place], [address], 12/07/2024 06:07:13 12/05/19 25 12/06/2024 ALT+A ST AST (SGOT) 13 IU/L 0-40 normal Not Available [facility] ([facility]) [address] [place], [address], 12/07/2024 06:07:14 12/05/19 25 12/06/2024 ALT+A ST ALT (SGPT) 12 IU/L 0-32 normal Not Available [facility] ([facility]) [address], [place], [address], 12/07/2024 06:07:14 02/04/20 25 02/03/2025 COMPL ETE BLOOD COUNT WBC 6.5 K/mcL 4.8-10 .8 Not Available [address], [address], 02/03/2025 11:35:06 02/04/20 25 02/03/2025 COMPL ETE BLOOD COUNT RBC 3.00 M/mcL 3.80-4 .80 low Not Available [address], [address], 02/03/2025 11:35:06 02/04/20 25 02/03/2025 COMPL ETE BLOOD COUNT hemoglobin 9.3 g/dL 11.5-1 6.0 low Not Available [address], [address], 02/03/2025 11:35:06 02/04/20 25 02/03/2025 COMPL ETE BLOOD COUNT hematocrit 29.1 % 35.0-4 7.0 low Not Available [address], [address], 02/03/2025 11:35:06 02/04/20 25 02/03/2025 COMPL ETE BLOOD COUNT MCV 96.4 fL 79.0-9 8.0 Not Available [address], [address], 02/03/2025 11:35:06 02/04/20 25 02/03/2025 COMPL ETE BLOOD COUNT MCH 30.8 pcg 27.0-3 2.0 Not Available [address], [address], 02/03/2025 11:35:06 02/04/20 25 02/03/2025 COMPL ETE BLOOD COUNT MCHC 32.0 g/dL 32.0-3 7.0 Not Available [address], [address], 02/03/2025 11:35:06 02/04/20 25 02/03/2025 COMPL ETE BLOOD COUNT RDW 14.2 % 11.0-1 5.0 Not Available [address], [address], 02/03/2025 11:35:06 02/04/20 25 02/03/2025 COMPL ETE BLOOD COUNT platelets 202 K/mcL 130-40 0 Not Available [address], [address], 02/03/2025 11:35:06 02/04/20 25 02/03/2025 COMPL ETE BLOOD COUNT MPV 11.3 fL 7.0-11 .0 high Not Available [address], [address], 02/03/2025 11:35:06 02/04/20 25 02/03/2025 COMPL ETE BLOOD COUNT NRBC 0.0 % <1.0 Not Available [address], [address], 02/03/2025 11:35:06 02/04/20 25 02/03/2025 COMPL ETE BLOOD COUNT NRBC absolute 0.00 K/mcL <0.10 Not Available [address], [address], 02/03/2025 11:35:06 02/04/20 25 02/03/2025 COMPL ETE BLOOD COUNT note See Report [facility], [address] [facility], [place], [place] [address] Not Available [address], [address], 02/03/2025 11:35:06 02/04/20 25 02/03/2025 DARRIAN TIN ferritin 22 NG/mL 8-252 Not Available [address], [address], 02/03/2025 12:20:10 02/04/20 25 02/03/2025 DARRIAN TIN note See Report [facility], [address] [facility], Chinmay gonzalez d, [facility] [place] [address] Not Available [address], [address], 02/03/2025 12:20:10 02/04/20 25 02/03/2025 IRON AND TIBC iron 44 mcg/d L 40-150 Not Available [address], [address], 02/03/2025 12:21:11 02/04/20 25 02/03/2025 IRON AND TIBC TIBC 327 mcg/d L 250-45 0 Not Available [address], [address], 02/03/2025 12:21:11 02/04/20 25 02/03/2025 IRON AND TIBC iron saturation 13 % 15-50 low Not Available [address], [address], 02/03/2025 12:21:11 02/04/20 25 02/03/2025 IRON AND TIBC note See Report low [facility], [address] [facility], [facility], [facility] [place] [address] Not Available [address], [address], 02/03/2025 12:21:11 08/04/20 24 08/04/2024 XR, chest , 2 [...] No active diseas e in chest. WSN: [id number] Orderi ng Physic efren: Shruti Yates Dictat ed By: Baron Batista MD Dictat ed Date/T kim: 7:50 pm Review ed By: Baron Batista MD Signed By: Baron Batista MD Signed Date/T kim: 7:50 pm Transc ribed By: LIZBETH Transc ribed Date/T kim: 7:50 pm Patien t Class: Outpat ient [facility] (Outpt Imaging) [address] [place], [address], 08/06/2024 09:44:09 08/04/20 24 08/04/2024 XR, chest , 2 view No observ ation record ed. [email or web address] In-Office Order Internal Use Only DO Not Attach Compendium DO Not Attach Compendium, Do Not Delete/merge, [id number] 08/06/2024 12:25:00 08/11/20 24 08/04/2024 compl ete PFT w/ post [facility] hodil ator aren metry * No observ ation record ed. [email or web address] [facility] [address] [place], [address], 08/11/2024 15:38:49 08/11/20 24 08/04/2024 compl ete PFT w/ post [facility] hodil ator aren metry * No observ ation record ed. [email or web address] [facility] [address] [place], [address], 08/19/2024 09:53:29 08/25/20 24 08/25/2024 elect rocar diogr am No observ ation record ed. [email or web address] In-Office Order Internal Use Only DO Not Attach Compendium DO Not Attach Compendium, Do Not Delete/merge, [id number] 08/25/2024 11:33:52 08/25/20 24 marie belcher am No observ ation record ed. [email or web address] In-Office Order Internal Use Only DO Not Attach Compendium DO Not Attach Compendium, Do Not Delete/merge, [id number] 08/25/2024 10:11:44 08/25/20 24 08/24/2024 CT, chest [...] raph dated Septem 2023. The F[employer]IN [employer]: [employer] Attendant view findin gs, lines and tubes: None. [...] argelia. 3. Mild spleno megaly . WSN: [id number] Orderi ng Physic efren: Shruti Yates Dictat ed By: Benny Esparza MD Dictat ed Date/T kim: 4:57 pm Review ed By: Benny Esparza MD Signed By: Benny Esparza MD Signed Date/T kim: 4:57 pm Transc ribed By: LIZBETH Transc ribed Date/T kim: 4:47 pm Patien t Class: Outpat ient [facility] (Outpt Imaging) [address] [place], [address], 08/25/2024 17:40:54 08/25/20 24 08/25/2024 CT, chest , w/ contr ast No observ ation record ed. [email or web address] [facility] (Ct Scan) [address] [place], [address], 08/26/2024 13:39:24 10/05/20 24 11/03/2023 MAMMO , scree radha, digit al, bilat eral No observ ation record ed. [email or web address] Not Available 10/06 09:04:27 10/20/20 24 10/19/2024 XR, chest No observ ation record ed. [facility] (Medical Records) [address] [place], [address], 10/20/2024 10:36:09 10/28/20 24 10/28/2024 XR, chest No observ ation record ed. [facility] (Medical Records) [address] [place], [address], 10/28/2024 20:48:42 10/29/20 24 10/28/2024 XR, chest No observ ation record ed. [facility] (Medical Records) [address] [place], [address], 10/29/2024 13:01:51 10/29/20 24 10/29/2024 CT, angio gram, chest , w/ contr ast No observ ation record ed. [facility] (Medical Records) [address] [place], [address], 10/29/2024 17:02:39 11/04/20 24 11/04/2024 MAMMO , [...] g recomm ended. We will recall the patien t. RECOMM ENDATI ON: Diagno stic 3D tomosy nthesi s of the left breast with schedu led ultras ound BI-RAD S: 0 Incomp lete - Need Additi onal Imagin g Evalua tion. Lay letter mailed to michael gray WSN: [id number] Orderi ng Physic efren: Shruti Yates Dictat ed By: Olga Lidia Rodriguez MD Dictat ed Date/T kim: 11:10 am Review ed By: Olga Lidia Rodriguez MD Signed By: Olga Lidia Rodriguez MD Signed Date/T kim: 11:10 am Transc ribed By: CSB Transc riptio n Date/T kim: 10:59 am Birads : Michael gray Class: Outpat ient [email or web address] [facility] (Outpt Imaging) [address], [place], [address], 11/05/2024 09:17:42 11/04/20 24 11/04/2024 MAMMO , scree radha, bilat eral No observ ation record ed. [email or web address] [facility] [address], [place], [address], 11/04/2024 13:08:40 11/16/20 24 11/16/2024 mm digit [...] Lay letter mailed to michael gray WSN: [id number] Orderi ng Physic efren: Shruti Yates ai Dictat ed By: Kelle Kim MD Dictat ed Date/T kim: 11:24 am Review ed By: Kelle Kim MD Signed By: Kelle Kim MD Signed Date/T kim: 11:24 am Transc ribed By: CSB Transc riptio n Date/T kim: 11:23 am Birads : Michael gray Class: Outpat ient [facility] (Outpt Imaging) [address] [place], [address], 11/16/2024 18:25:23 11/16/20 24 11/16/2024 MAMMO , scree radha, digit al, unila teral No observ ation record ed. [email or web address] [address] [place], [address], 11/16/2024 11:37:42 12/06/19 25 12/02/2024 NM, myoca rdial perfu francisco scan No observ ation record ed. [facility] (Medical Records) [address] [place], [address], 12/07/2024 06:21:05 02/10/20 25 colon oscop y No observ ation record ed. [facility] [address] [place], [address], 02/09/2025 12:01:15 Result Notes None recorded. Problems Name Problem SNOMED Code Status Onset Date Resolution Date Notes Provider Name and Address Organization Details Recorded Time Dmitri 295007073 Active PATSY Coon, [facility] 3 10:55:09 Gastroeso phageal reflux disease 290881212 Active PATSY Coon, [facility] 3 10:55:09 Hypothyro idism 64277929 [facility] 10[facility]09 Labile hypertens ion due to being in a clinical environme nt 931757246 [facility] 10[facility]:09 Hyperlipi demia 81661921 [facility] 10:[facility]:09 Fatigue 23991174 Completed 10/04/2023 Nii Yates MD [address] [facility] [address], [place], [address], [facility] 3 09:05:45 Vitamin D deficienc y 59156460 Active PATSY Coon, [facility] 3 10:55:09 Fracture of phalanx of foot 23132012 Completed 11/19/2018 Genet foote [facility] 9 14:39:03 Tubular adenoma 610373289 Active 2019 PATSY Coon, [facility] 3 10:55:09 Serum creatinin e above reference range 535249602 Completed 201910/04/2023 Nii Yates MD [address], [place], [address], [facility] 3 09:06:18 Hypertens anson renal disease 37055784 Active 2020 PATSY Coon, [facility] 3 10:55:09 Chronic kidney disease stage 3A 858473798 Active 2021 PATSY Coon, [facility] 3 10:55:09 Kidney stone 42327557 Completed 202210/05/2024 Nii Yates MD [address] [facility] [address], [place], [address], [facility] 4 10:32:59 COVID-19 242485490 Completed 202210/04/2023 Nii Yates MD [address] [facility] [address], [place], [address], [facility] 3 09:05:39 Laryngiti s 36437894 Completed 202210/04/2023 Nii Yates MD [address] [facility] [address], [place], [address], [facility] 3 09:06:07 History of SARS-CoV- 2 153162822890 432902 Active 2022 Nii Yates MD [address] [facility] [address], [place], [address], [facility] 3 09:05:33 Morbid obesity 927027428 Active 2022 Nii Yates MD [address] [facility] [address], [place], [address], [facility] 3 09:22:38 Uric acid renal calculus 643929332 Active 2023 Nii Yates MD [address] [facility] [address], [address], [facility] 4 10:32:16 History of urinary stone 275464314 Active 2023 Nii Yates MD [address] [facility] [address], [address], [facility] 4 10:32:56 Prediabet es 248323885 Active 2023 Nii Yates MD [address], [place], [address], [facility] 4 09:53:05 Restricti ve lung disease 61382849 Active 2023 Nii Yates MD [address], [place], [address], [facility] 4 07:24:24 Moderate persisten t asthma 726340539 Active 2023 Nii Yates MD [address], [place], [address], [facility] 4 07:24:37 Nodule of lung 309940047 Active 2023 Nii Yates MD [address], [place], [address], [facility] 4 07:25:47 Atrial flutter 8029320 Active 2023 Janel Sandoval PA-C [address], [place], [address], [facility] 4 10:39:19 Asthma 853028939 Active 2024 Nii Yates MD [address], [place], [address], [facility] 5 09:11:37 Pulmonary hypertens ion 80973774 Active 2024 Nii Yates MD [address], [place], [address], [facility] 5 09:11:46 Obstructi ve sleep apnea syndrome 28844492 Active 2024 Nii Yates MD [address], [place], [address], [facility] 07:28:00 Notes:Some problems listed i n Document: #[id number] could not be added to this patient's chart. Please review this document and add these problems to the patient's chart manually as needed. Problem Notes None recorded. Procedures Surgical History Date Name Laterality Status Provider Name and Address Organization Details Recorded Time 11/16/20 24 mammography of left breast completed Bronwyn starks MA [facility] 11/16/2024 11:38:32 11/04/20 24 Most Recent Mammogram completed [facility] 11/04/2024 13:06:14 11/04/20 24 Mammogram Screening completed [facility] 11/04/2024 13:05:29 10/05/20 24 Advanced Care Planning completed Nica Gray [facility] 10/18/2024 10:50:18 09/23/20 24 arthroplasty of the carpometacarpal joint of the thumb completed Bronwyn starks [facility] 10/05/2024 10:14:05 03/29/20 24 ureterorenoscopy with fragmentation and removal of calculus of kidney completed Bronwyn starks [facility] 05/24/2024 10:39:56 10/04/20 23 Advanced Care Planning completed Nii Yates MD [address] [address], [place], [address], [facility] 10/04/2023 08:28:24 12/19/19 23 Date of Last Pap Smear completed Annalee Aponte [facility] 10/06/2023 16:01:08 08/28/20 22 Advanced Care Planning completed Nica Gray [facility] 08/29/2022 14:14:04 08/10/20 21 Advanced Care Planning completed Nii Yates MD [address], [place], [address], [facility] 08/10/2021 08:21:36 10/30/20 20 Most Recent Bone Density completed Bronwyn starks MA [facility] 08/28/2022 13:15:10 10/30/20 20 Dxa bone density study completed Bronwyn starks MA [facility] 08/28/2022 13:15:16 08/07/20 20 Six-Item Cognitive Test completed Bronwyn starks MA [facility] 08/07/2020 13:27:37 07/04/20 20 Date of Last Colonoscopy completed Amelia Arzate [facility] 07/05/2020 10:04:05 07/04/20 20 Colonoscopy completed Bronwyn starks MA [facility] 08/07/2020 13:22:40 11/27/19 19 repair of umbilical hernia completed Naima Yee MA [facility] 01/18/2019 13:05:42 06/17/20 18 procedure on tongue completed Jason Guevara MD [address] [address], [place], [address], [facility] 01/18/2019 13:47:45 05/18/20 14 excision of mucous cyst of finger completed Bronwyn starks MA [facility] 08/10/2021 09:57:19 04/07/20 12 arthroscopic shoulder decompression completed Bronwyn starks MA [facility] 08/28/2022 13:13:52 11/17/18 98 Endometrial Ablation completed Bronwyn starks MA [facility] 08/28/2022 13:03:27 03/21/19 92 delivery completed Bronwyn starks MA [facility] 08/28/2022 13:14:33 01/12/19 85 delivery completed Bronwyn starks MA [facility] 08/28/2022 13:14:29 10/07/19 81 delivery completed Bronwyn starks MA [facility] 08/28/2022 13:14:44 Lig div&strpg short saph vn completed Kristie Dsouza [facility] 10/02/2021 11:19:55 Anesth shoulder procedure completed Kristie Dsouza [facility] 10/02/2021 11:19:55 Imaging Results Imaging Date Name Status LastModified by Organization Details LastModified Time 08/04/2024 XR, chest, 2 view completed [facility] (Outpt Imaging) [address] [place], [address], 08/06/2024 09:44:09 08/04/2024 XR, chest, 2 view completed [email or web address] In-Offi ce Order Internal Use Only DO Not Attach Compendium DO Not Attach Compendium, Do Not Delete/merge, [id number] 08/06/2024 12:25:00 08/04/2024 complete PFT w/ post bronchodilator spirometry* completed [address] [facility] [address] [place], [address], 08/11/2024 15:38:49 08/04/2024 complete PFT w/ post bronchodilator spirometry* completed [address] [facility] [address] [place], [address], 08/19/2024 09:53:29 08/25/2024 electrocardiogram completed [email or web address] In-Offi ce Order Internal Use Only DO Not Attach Compendium DO Not Attach Compendium, Do Not Delete/merge, [id number] 08/25/2024 11:33:52 08/25/2024 electrocardiogram completed [email or web address] In-Offi ce Order Internal Use Only DO Not Attach Compendium DO Not Attach Compendium, Do Not Delete/merge, [id number] 08/25/2024 10:11:44 08/24/2024 CT, [facility], w[facility] [facility] [address] [place], [address], 08/25/2024 17:40:54 08/25/2024 CT, chest, w/ contrast completed [email or web address] [facility] (Ct Scan) [address] [place], [address], 08/26/2024 13:39:24 11/03/2023 MAMMO, screening, digital, bilateral completed [email or web address] Information not available 10/06/2024 09:04:27 10/19/2024 XR, chest completed [facility] (Medical Records) [address] [place], [address], 10/20/2024 10:36:09 10/28/2024 XR, chest completed [facility] (Medical Records) [address] [place], [address], 10/28/2024 20:48:42 10/28/2024 XR, chest completed [facility] (Medical Records) [address] [place], [address], 10/29/2024 13:01:51 10/29/2024 CT, angiogram, chest, w/ contrast completed [facility] (Medical Records) [address] [place], [address], 10/29/2024 17:02:39 11/04/2024 MAMMO, screening, digital, bilateral completed [email or web address] [facility] (Outpt Imaging) [address] [place], [address], 11/05/2024 09:17:42 11/04/2024 MAMMO, screening, bilateral completed [email or web address] [facility] [address], [place], [address], 11/04/2024 13:08:40 11/16/2024 mm digital mammo unilat left completed JOSHUA [facility] (Outpt Imaging) [address] [place], [address], 11/16/2024 18:25:23 11/16/2024 MAMMO, screening, digital, unilateral completed [email or web address] [facility] [address] [facility], [place], [address], 11/16/2024 11:37:42 12/02/2024 NM, myocardial perfusion scan completed [facility] (Medical Records) [address] [place], [address], 12/07/2024 06:21:05 02/09/2025 colonoscopy completed [facility] [address] [place], [address], 02/09/2025 12:01:15 Procedure Notes None recorded. Medical Equipment None Reported. Allergies Allergen ID Allergen Name Allergen Category Reaction Reaction Severity Criticality Documentation Date Start Date Code Code System Note Provider Name and Address Organization Details Recorded Time 17752 amoxicill in medicatio n Not available Not available Not available 09/26/20162020 723 RxNorm Delmis foote [facility] 10:49:15 38028 latex environme nt,medica tion other Not available Not available 11/19/20182020 63635 91 RxNorm Delmis foote [facility] 10:49:15 17390 ciproflox acin medicatio n hives Not available Not available 09/10/20212020 2551 RxNorm Delmis foote [facility] 10:49:15 Medications Name Sig Start Date Stop [...] ayed release TAKE 1 CAPSULE BY MOUTH 1 TIME EACH DAY. active [...] 1 TABLET BY MOUTH EVERYDAY AT BEDTIME 03/07 completed Not Available Not Available Not Available tamsulosin 0.4 mg capsule TAKE 1 [...] completed Not Available Not Available Not Available ferrous sulfate 325 mg (65 mg iron) tablet TAKE 1 TABLET BY MOUTH TWICE A DAY active Not Available Not Available No t Available zinc 60 mg tablet Take 1 [...] Not Available Not Available Not Available pravastatin 20 mg tablet TAKE 1 TABLET BY MOUTH EVERYDAY AT BEDTIME active Not Available Not Available No t Available lisinopril 5 mg tablet Take 1 [...] DAY NEEDED TO ITCHY SKIN ON SCALP active Not Available Not Available No t Available gentamicin 0.1 % topical ointment APPLY [...] Plenvu 140 gram-9 gram-5.2 gram powder packs TAKE 3 EACH BY MOUTH 2 (TWO) TIMES A DAY FOR 1 DAY. active Not Available Not Available No t Available Wixela Inhub 250 mcg-50 mcg/dose powder for inhalation INHALE 1 PUFF BY MOUTH EVERY 12 HOURS FOR 30 DAYS active Not Available Not Available No t Available Fluzone High-Dose Quad (PF) 240 mcg/0.7 mL IM syringe TO BE ADMINISTE RED BY PHARMACIS T FOR IMMUNIZAT ION 08/07 completed Not Available Not Available Not Available iron bisglycinat e chelate 28 mg capsule Take 1 capsule every day by oral route for 90 days. 2024 active Not Available Not Available Not Avai lable Flowflex COVID-19 Antigen Home Test kit USE DIRECTED 09/10 completed Not Available Not Available Not Available Paxlovid 150 mg-100 mg tablets in a dose pack (Moderate Renal Dose) TAKE 2 TABLETS BY MOUTH TWICE [...] Updated DateTime 4 166.37 cm 42.6 kg/m2 682118. 02 g 70 /min 98 % 98 % 98.1 [degF] 131 mm[Hg] 76 mm[Hg] Bronwyn robin [facility] 4 13:32:05 Date Recorded Body height Body mass index (BMI) Body weight Heart rate Oxygen saturation Oxygen saturation in Arterial blood by Pulse oximetry Body temperature Systolic blood pressure Diastolic blood pressure Provider Name and Address Organization Details Last Updated DateTime 4 166.37 cm 43.2 kg/m2 588821. 89 g 57 /min 98 % 98 % 98.8 [degF] 145 mm[Hg] 73 mm[Hg] Amita Quintana LPN [facility] 4 09:51:51 Date Recorded Systolic blood pressure Diastolic blood pressure Provider Name and Address Organization Details Last Updated DateTime 08/25/2024 134 mm[Hg] 76 mm[Hg] MARIA DOLORES CAREY [address] [facility] [address], [place], [address], [facility] 08/25/2024 10:18:25 Date Recorded Body height Body mass index (BMI) Body weight Heart rate Oxygen saturation Oxygen saturation in Arterial blood by Pulse oximetry Body temperature Systolic blood pressure Diastolic blood pressure Systolic blood pressure Diastolic blood pressure Provider Name and Address Organization Details Last Updated DateTime 4 166.37 cm 43.1 kg/m2 210840. 79 g 67 /min 97 % 97 % 98.3 [degF] 146 mm[Hg] 77 mm[Hg] 136 mm[Hg] 68 mm[Hg] Bronwyn robin MA [facility] 4 10:45:55 Date Recorded Body height Body mass index (BMI) Body weight Oxygen saturation Oxygen saturation in Arterial blood by Pulse oximetry Heart rate Body temperature Systolic blood pressure Diastolic blood pressure Provider Name and Address Organization Details Last Updated DateTime 4 166.37 cm 41.9 kg/m2 707511. 85 g 99 % 99 % 69 /min 98.4 [degF] 123 mm[Hg] 79 mm[Hg] Nicole Bess MA [facility] 4 10:27:10 Social History Question Answer Notes LastModified by Organizat ion Details LastModified Time Tobacco Smoking Status Never Smoker PATSY Stout, [facility] 03/20/2016 14:01:45 Do You Have An Advance [...] Not available 08/28/2022 13:03:25 Maternal Aunt Malignant neoplasm of lung phelmuth Not available 2015 14:22:55 [...] Recorded Time Tdap 2 completed Delmis foote [facility] 08/07/2022 13:59:27 zoster live 4 completed Delmis foote [facility] 08/07/2022 13:59:27 Influenza, split virus, trivalent, preservative 6 completed Delmis foote [facility] 08/07/2022 13:59:27 Influenza, split virus, quadrivalent, PF 8 completed PATSY Mancilla [facility] 08/07/2023 09:52:25 zoster recombinant 9 completed PATSY Mancilla [facility] 08/07/2023 09:52:25 Influenza, split virus, quadrivalent, PF 9 completed PATSY Mancilla, [facility] 08/07/2023 09:52:25 Influenza, high-dose, trivalent, PF 0 completed Delmis foote, [facility] 08/07/2022 13:59:27 Pneumococcal conjugate PCV 13 0 completed Delmis foote, [facility] 08/07/2022 13:59:27 COVID-19, mRNA, LNP-S, PF, 30 mcg/0.3 mL dose 1 completed PATSY Mancilla, [facility] 08/07/2023 09:52:25 COVID-19, mRNA, LNP-S, PF, 30 mcg/0.3 mL dose 1 completed PATSY Mancilla [facility] 08/07/2023 09:52:25 Influenza, high-dose, quadrivalent, PF 1 completed PATSY Mancilla, [facility] 08/07/2023 09:52:25 pneumococcal polysaccharide PPV23 1 completed Delmis foote [facility] 08/07/2022 13:59:27 COVID-19, mRNA, LNP-S, PF, 30 mcg/0.3 mL dose 1 completed PATSY Mancilla, [facility] 08/07/2023 09:52:25 Influenza, split virus, quadrivalent, PF 7 completed PATSY Mancilla, [facility] 08/07/2023 09:52:25 zoster recombinant 2 completed PATSY Mancilla, [facility] 08/07/2023 09:52:25 COVID-19, mRNA, LNP-S, PF, 30 mcg/0.3 mL dose, pearl-sucrose 2 completed PATSY Mancilla, [facility] 08/07/2023 09:52:25 Influenza, high-dose, quadrivalent, [facility] 10:07:35 Pneumococcal conjugate PCV20, polysaccharide [id number] conjugate, adjuvant, PF 2 completed PATSY Mancilla, [facility] 08/07/2023 09:52:25 COVID-19, mRNA, LNP-S, bivalent, PF, 30 mcg/0.3 mL dose 2 [facility] 09:52:25 Influenza, split virus, quadrivalent, preservative 6 completed PATSY Mancilla, [facility] 08/07/2023 09:52:25 Influenza, split virus, quadrivalent, PF 4 [facility] 09:52:25 RSV, recombinant, protein subunit RSVpreF, adjuvant reconstituted, 0.5 mL, PF 3 completed PATSY Mancilla [facility] 08/07/2023 10:04:15 COVID-19, mRNA, LNP-S, PF, 30 mcg/0.3 mL dose 3 completed PATSY Mancilla [facility] 08/07/2023 10:07:57 Influenza, adjuvanted, quadrivalent, PF 3 completed PATSY Coon, [facility] 09/10/2023 10:54:09 Influenza, high-dose, quadrivalent, PF 2 completed PATSY Coon, [facility] 09/10/2023 10:54:09 COVID-19, mRNA, LNP-S, PF, pearl-sucrose, 30 mcg/0.3 mL 3 completed PATSY Coon [facility] 09/10/2023 10:54:09 Td(adult) unspecified formulation 3 completed Nii Yates MD [address] [address], [place], [address], [facility] 05/24/2024 10:55:35 COVID-19, mRNA, LNP-S, PF, 50 mcg/0.5 mL 4 completed Delmis foote [facility] 08/13/2024 11:29:35 Influenza, high-dose, trivalent, PF 4 completed Bronwyn Cardenas [place] dary, [facility] 08/03/2024 14:25:07 Past Encounters Encounter ID Performer Location Encounter Start Date Encounter Closed Date Diagnosis/Indication Diagnosis SNOMED-CT Code Diagnosis ICD10 Code Diagnosis Note [id number] Jason Guevara MD Main Office [address] [address] 03/20/2016 13:27:10 03/20/2016 15:02:18 Hypothyroidism 72739235 E03.9 Labile hyp ertension due to being in a clinical environment 272727440 I15.8 Hyperlipidemia 95703718 E78.0 Fatigue 12404450 R53.83 Vitamin D deficiency 347 58062 E55.9 Gastroesop hageal reflux disease 155667611 K21.9 Body mass index 40+ - severely obese 674636931 Z68.41 [id number] Jason Guevara MD Main Office [address] [address] 09/26/2016 15:10:11 09/26/2016 16:42:07 Adult health examination 331975208 Z00.00 Varicose v eins of lower extremity 73368899 I83.893 Body mass index 40+ - severely obese 160670403 Z68.41 Hypothyroidism 67003225 E03.9 Gastroesop hageal reflux disease 008620159 K21.9 [id number] Leif villatoro MD Main Office [address] [address] 07/12/2017 09:37:53 07/12/2017 10:10:36 Needs influenza immunization 509307351 Z23 [id number] Jason Guevara MD Main Office [address] [place] [address] 10/13/2017 13:26:17 10/13/2017 14:47:58 Adult health examination 089647317 Z00.00 Hypothyroidism 12027894 E03.9 Essential hypertension 33123468 I10 Stable off of medication s Hyperlipidemia 10470618 E78.2 Gastroesop hageal reflux disease 465562054 K21.9 Body mass index 40+ - severely obese 512506078 E66.01 Z68.41 [id number] Genet segovia NP Main Office [address] [place] [address] 11/19/2018 13:36:04 11/19/2018 14:56:16 Pre-surgery evaluation 168498566 Z01.818 Pt had labs recently and will get results. Advised to hold aspirin and relafen 1 week prior. Noble score 0.1% with most risk from morbid obesity. BP normal at this time, pt able to do at least 4 METS Body mass index 40+ - severely obese 038012237 E66.01 Z68.41 Continue weight loss, on WW plan now. Discussed adding different exercises including resistance training. Discuss core exercises with surgeon Umbilical hernia 9235667 07 K42.9 [id number] Jason Guevara MD Main Office [address] [place] [address] 01/18/2019 12:54:54 01/18/2019 14:19:05 Adult health examination 782379630 Z00.00 Screening for malignant neoplasm of breast 354779686 Z12.39 Essential hypertension 23005326 I10 Stable off of medication s Gastroesop hageal reflux disease 030345868 K21.9 Hypothyroidism 23931178 E03.9 Hyperlipidemia 62809472 E78.2 Body mass index 40+ - severely obese 030949135 E66.01 Z68.41 Hepatitis C screening 41 3079462 Z11.59 Plantar fasciitis 204069 003 M72.2 Vitamin D deficiency 347 29723 E55.9 [id number] Shayy rosales MD Main Office [address] [place] [address] 01/27/2019 13:51:24 01/27/2019 14:47:01 Allergic reaction 405797395 T78.40XA area of first shingrix vaccine with redness, warm and itching.. no streaking avoid shingrix [id number] Joe No MD Main Office [address] [address] [place] [address] 07/26/2019 10:21:01 07/26/2019 11:28:39 Thrombophlebitis of superficial veins of lower extremity 81399918 I80.01 rec cont comp socks, use warm washcloth for a few minutes few times/day, and increase nabumetone to 1000mg bid x few days, then back to usual dose of 500mg bid offered reassuranc e - no evidence of dvt Peripheral venous insufficiency 83848359 I87.2 cont comp socks, f/u c vein specialist in 09/04 as dir [id number] Jason Guevara MD Main Office [address] [address] [place] [address] 08/07/2020 13:01:37 08/07/2020 14:26:46 Adult health examination 727553726 Z00.00 Essential hypertension 78141304 I10 Stable off of medication s Hypothyroidism 91402797 E03.9 Screening for malignant neoplasm of breast 122447636 Z12.39 Menopause present 689246 006 Z78.0 Gastroesop hageal reflux disease 519992352 K21.9 Lateral epicondylitis 20 4738006 M77.12 Body mass index 40+ - severely obese 752739375 E66.01 Z68.41 [id number] Nii Yates MD Main Office [address] [address] [place] [address] 08/10/2021 09:47:22 08/10/2021 10:49:11 Adult health examination 086323283 Z00.00 Patient was counseled on healthy diet, [...] . Advance di rective discussed with patient 127914064 Z71.89 MOLST and HCP discussed with patient, patient to discuss with family and bring back at next visit. Fatigue 10719319 R53.83 Hyperlipidemia 35555088 E78.5 Screening for malignant neoplasm of breast 319777547 Z12.39 Insomnia 380815858 G47.0 0 Body mass index 40+ - severely obese 664593921 Z68.41 - Diet and exercise discussed- Patient made aware of risks of obesity- Avoid starchy and fatty food- Encouraged use of green vegetables and fruits Morbid obesity 239419183 E66.01 Essential hypertension 56073873 I10 [id number] Nii Yates MD Main Office [address] [address] 10/02/2021 11:19:28 10/02/2021 12:12:21 Chronic kidney disease stage 3B 085509710 N18.[address] Shahid Hypertensi ve renal disease 01450187 I12.9 Danita showed me a full log of her blood pressure readings at home and it has consistent ly been below 130 over 90s. I am reluctant to go ahead and change her blood pressure medication at this time as her elevated blood pressure could be due to being in a medical office setting.Nathaniel peace will continue to monitor blood pressure and [...] nephrology Dr. Shahid see essential HTN above. [id number] Nii Yates MD Main Office [address] [facility] [address] [facility] [place] [address] 08/28/2022 12:57:11 08/28/2022 13:52:16 Adult health examination 333112139 Z00.00 Patient was counseled on healthy diet, [...] . Advance di rective discussed with patient 574213032 Z71.89 MOLST and HCP discussed with patient, patient to discuss with family and bring back at next visit. Fatigue 26400668 R53.83 Hyperlipidemia 02908018 E78.5 Screening for malignant neoplasm of breast 854752590 Z12.39 Body mass index 40+ - severely obese 202059883 Z68.41 - Diet and exercise discussed- Patient made aware of risks of obesity- Avoid starchy and fatty food- Encouraged use of green vegetables and fruits Morbid obesity 949633004 E66.01 Chronic ki dney disease stage 3A 029632036 N18.[address] Shahid Neck pain 89236313 M54.2 Suspected MSK strain will get xr given age, if wnl advised ok to do PT.No red flag on PE. Vitamin D deficiency 347 14202 E55.9 Hypertensi ve renal disease 54732445 I12.9 BP stable with current regimen. [id number] BROOKS AGUILAR MD Main Office [address] [address] 08/07/2023 10:02:13 08/07/2023 13:04:34 [id number] Joseph Aguilar MD Tele[facility] [address] [address] 09/10/2023 09:49:15 09/10/2023 10:53:53 COVID-19 019435715 U07.1 Hydration, rest, if feeling better quarantine x 5 days then mask for 5 days. If not better after 5 days quarantine for full 10 days. Tylenol as needed, OTC cough med as needed. Call/ return for worsening sx or concerns. Chronic ki dney disease stage 3A 594010657 N18.31 GFR 49, Creatinine 1.2 Hypertensi ve renal disease 69464072 I12.9 Laryngitis 50870058 J04. 0 [id number] Nii Yates MD Main Office [address] [address] 10/04/2023 08:32:10 10/04/2023 09:30:14 Adult health examination 131874534 Z00.00 Patient was counseled on healthy diet, exercise and nutrition due to Body mass index is 41.2 kg/m? ? ?. Last Colonoscop y:Date: 07/04/20Res ult: tubular adenomaPla n: repeat in 5 yrs Last Mammogram: Date: 11/01/22Re sult: Birad -1Plan: done by fire support specialist Last Pap smearDate: 12/07/21Res ult: Neg for [...] Distracted driving discussed. Medication reconciled . Fatigue 61447206 R53.83 Hyperlipidemia 61521693 E78.5 Morbid obesity 425967138 E66.01 Body mass index 40+ - severely obese 630200824 Z68.41 - Diet and exercise discussed- Patient made aware of risks of obesity- Avoid starchy and fatty food- Encouraged use of green vegetables and fruits Advance di rective discussed with patient 768857801 Z71.89 MOLST and HCP discussed with patient, patient to discuss with family and bring back at next visit. Hypertensi ve renal disease 08655661 I12.9 BP stable with current regimen per renal and her home reading, little high in office today. She is otherwise asymptomat ic. BP could elevated due to discomfort from renal stone advised to monitor bp, she is otherwise following this up with renal. Chronic ki dney disease stage 3A 381927676 N18.[address] Shahid Vitamin D deficiency 347 24592 E55.9 Impaired f asting glycemia 428723038 R73.01 Administra tion of viral vaccine 65173983 Z23 [id number] Joseph Aguilar MD Main Office [address] [facility] [address] [facility] [place] [address] 03/22/2024 09:34:14 03/22/2024 10:28:00 Pre-surgery evaluation 053739133 Z01.818 No medical contraindi cations to proposed procedure. Real Perioperat anson Cardiac Risk was calculated and the risk for perioperat anson MD is 0.6%. May proceed to surgery as planned.-c ompleted lab work this morning; bmp, cbc, and urinalysis -EGG revealed premature supraventr icular complexes; pt is asymptomat ic. New when compared to ecg from 2019. Scheduled to f/u in 2 months for repeat ECG. Chronic ki dney disease stage 3A 047305006 N18.[address] Shahid Hypertensi ve renal disease 80437136 I12.9 currently on amlodipine 5mg QD and lisinopril 10mg QD-in office BP of 160/81 and 136/78 Kidney stone 26381502 N2 0.0 [id number] Nii Yates MD Main Office [address] [facility] [address] [place] [place] [address] 05/24/2024 10:08:25 05/24/2024 11:06:06 ECG: sinus arrhythmia 663813328 R94.31 repeat ecg reassuring . [id number] Joseph Aguilar MD Main Office [address] [facility] [address] [place] [address] 07/13/2024 10:38:10 07/13/2024 11:12:04 Cough 65434345 R05.9 Possible secondary to PND. Maybe be viral as well. Advised to use OTC meds as needed. Posterior rhinorrhea 758 64563 R09.82 [id number] Nii Yates MD Main Office [address] [facility] [address] [place] [address] 08/03/2024 13:18:17 08/03/2024 14:09:53 Influenza vaccine needed 3169430288 106 Z23 65 YEARS AND OLDER Cough 29364091 R05.9 -Will proceed with PFT and methacholi ne.-Will get allergy testing via lab.-Will get CXR. Dyspnea 370033449 R06.00 No calf pain, no recent travel. Allergic rhinitis 730701 04 J30.9 [id number] Joseph Aguilar MD Main Office [address] [facility] [address] [place] [address] 07/30/2024 10:26:26 07/30/2024 11:03:56 Dyspnea on exertion 79219493 R06.09 -recently stopped using her flonase and [...] evaluate with PFTs w/ methacholi ne challenge [id number] Joseph Aguilar MD Main Office [address] [facility] [address] [facility] [place] [address] 08/25/2024 09:37:24 08/25/2024 10:25:17 Pre-surgery evaluation 999268351 Z01.818 No medical contraindi cations to proposed procedure. Noble Perioperat anson Cardiac Risk was calculated and the risk for perioperat anson MD is <0.5%. May proceed to surgery as planned.-r ecently completed CBC w/ diff, BMP in 07/2024-EGG ; slightly bradycardi c, 57 bpm, NSR, no ST changes Chronic ki dney disease stage 3A 645249354 N18.[address] Shahid Hypertensi ve renal disease 83578407 I12.9 currently on amlodipine 5mg QD and losartan 50mg QD-in office BP of 145/73 Hypothyroidism 14181755 E03.9 -on levothyrox ine 75mcg Arthritis of first carpometacarpal joint of right hand 5618219727 133321 M13.841 pre-operat anson medical clearance for right thumb carpometac arpal arthroplas ty procedure with Dr. Gurjit Steele (NPI#[id number]) on 09/16/2024 . Under MAC. [id number] Nii Yates MD Main Office [address] [facility] [address] [facility] [place] [address] 10/05/2024 09:50:28 10/05/2024 10:51:19 Adult health examination 125675316 Z00.00 Patient was counseled on healthy diet, exercise and nutrition due to Body mass index is 43.2 kg/m? ? ?. Last Colonoscop y:Date: 07/04/20Res ult: tubular adenomaPla n: repeat in 5 yrs Last Mammogram: Date: 11/03/2023 Result: Birad -1Plan: done by fire support specialist Last Pap smearDate: 12/07/21Res ult: Neg for [...] Distracted driving discussed. Medication reconciled . Fatigue 23530311 R53.83 Hyperlipidemia 39636801 E78.5 Morbid obesity 730556814 E66.01 Body mass index 40+ - severely obese 365045069 Z68.41 - Diet and exercise discussed- Patient made aware of risks of obesity- Avoid starchy and fatty food- Encouraged use of green vegetables and fruits Advance di rective discussed with patient 092507727 Z71.89 MOLST and HCP discussed with patient, patient to discuss with family and bring back at next visit. Hypertensi ve renal disease 55583337 I12.9 BP little elevated, followed by renal med adjustment being made. Chronic ki dney disease stage 3A 553862363 N18.[address] Shahid Vitamin D deficiency 347 79959 E55.9 Impaired f asting glycemia 940192312 R73.01 Screening for malignant neoplasm of breast 589804125 Z12.39 [id number] Nii Ytaes MD Main Office [address] [place] [address] 11/04/2024 08:30:11 11/05/2024 16:23:02 [id number] Joe No MD Main Office [address] [facility] [address] [facility] [address] 11/09/2024 10:18:25 11/09/2024 11:07:20 Atrial flutter 4414026 I48.92 new acute onset of atrial flutter [...] stable in September. Hypertensi ve renal disease 52708740 I12.9 stable hypertensi on on current medication s. Chronic ki dney disease stage 3A 597210083 N18.31 stable, f/u with Dr. Shahid in November. Hypothyroidism 96860631 E03.9 stable on current medication . Moderate p ersistent asthma 701630563 J45.40 stable, pt. will continue Wixela and [...] Member ID Guarantor Name 08/03/2024 1 MEDICARE B-[employer]: [employer] Danita Randle [id number] Danita Chalino Randle 08/03/2024 2 [employer] INDEMNITY PLAN - [employer] [id number] Danita Chalino Randle [id number] Danita Chalino Randle 08/25/2024 1 MEDICARE B-[employer]: [employer] Danita Chalino Randle [id number] Danita A Randle 08/25/2024 2 [facility] [employer] [id number] Danita Chalino Randle [id number] Danita A Randle 10/05/2024 1 MEDICARE B-[employer]: [employer] Danita Chalino Randle [id number] Danita A Randle 10/05/2024 2 [employer] IN[employer]MNITY [employer]AN - [employer] [id number] Danita A Randle [id number] Danita A Randle 11/04/2024 1 MEDICARE B-[employer]: [employer] Danita Chalino Randle [id number] Danita A Randle 11/04/2024 2 [employer] IN[employer]ITY [employer]AN - [employer] [id number] 2 Danita Chalino Randle [id number] Danitalety Randle 11/09/2024 1 MEDICARE B-[employer]: [employer] Danita Randle [id number] Danita Randle 11/09/2024 2 [facility] [id number] Danita Randle [id number] Danita Randle Notes Date Note Type Note Provider Name and Address Organization Details Recorded Time 08/03/2024 text/html Follow up for co ugh and med review, sx stable has PFT scheduled tomorrow. Doing ok otherwise. Nii Yates MD [address] [facility] [address], [place], [address], [facility] 08/03/2024 13:59:13 08/25/2024 text/html Danita is a 69yr old F with PMHx of CKD stage 3A, hypothyroidism, presents for pre-operative medical clearance for right thumb carpometacarpal arthroplasty procedure with Dr. Gurjit Steele (NPI#[id number]) on 09/16/2024. Under MAC. Denies any acute [...] chills, and nausea/vomiting. MARIA DOLORES CAREY [address] [facility] [address], [place], [address], [facility] 08/25/2024 10:40:33 10/05/2024 text/html Medicare Annual Wellness [...] arthritis.Blood pressure followed by renal. Nica foote [facility] 10/18/2024 10:51:09 11/04/2024 text/html Hospitalization Contact RecordReported bypatient.Follow UpHospital: [facility]; admit date: (Please enter in format [...] disease, and Vitamin D deficiency presented to [place] [facility] 10/28 from pre-op area where she [...] Nii Yates MD [address], [place], [address], [facility] 11/05/2024 16:23:01 11/09/2024 text/html 69 year old malcom field for transition of care visit. Admitted 10/28 through 11/03/24 to [facility] for new onset atrial flutter and bronchospasm . Janel Sandoval PA-C [address], [place], [address], [facility] 11/09/2024 11:02:04 11/09/2024 text/html Hospitalization Contact RecordReported bypatient.Follow UpHospital: [facility]; admit date: (Please enter in format [...] disease, and Vitamin D deficiency presented to [place] [facility] 10/28 from pre-op area where she [...] # for future use. Janel Sandoval PA-C [address] [facility] [address] [facility], [place], [address], [facility] 11/09/2024 11:02:04 OBGyn Episode No OBEpisode recorded.
--- OUTSIDE RECORDS SUMMARY | 2025-03-17 10:29 | XMS_ITS | Encounter Summary ---
Author Organization [facility] Address [address] [place] [address] Phone Care Team Providers Care Hardscape Foreman Name Role Phone Sugey Rice MD Primary Care Provider [phone] Encounter Details Date Type Department Care Team (Late st Contact Info) Description 07/29/2023 Documentation Only [facility] [place], [address] [place] [phone] [place]ett [place], [place] [address] [place] [address] Social History Tobacco Use Types [...] Visit [facility] [place] [facility] [place] [address] [place] [phone] Leonardo Stovall [address] [place] [address] documented as of this encounter Visit Diagnoses Not on filedocumented in this encounter Care Teams Hardscape Foreman Relationship Specialty Start Date End Date Sugey Rice MD [address] [phone] PCP - General Family Medicine 09/04/21 documented as of this encounter
--- OUTSIDE RECORDS SUMMARY | 2025-03-17 10:29 | XMS_ITS | Clinical Summary ---
Author Organization [facility] [place], Address [address] [place] [address] [place] [address] Phone Care Team Providers Care Termite Control Technician Name Role Phone Sugey Rice MD Primary Care Provider [phone] Allergies Active Allergy Reactions Criticality Noted Date [...] Encounters Date Type Department Care Team Description 03/14/2025 Telephone [facility] [place], [address] [place] [address] Brook Velez from Last 3 Months Immunizations Immunization Administration [...] Kidney disease Sibling 1 Son - high it program manager Cancer Sibling 2 brother-SCC Relation Status Comments [...] Visit [facility] [place] [address] Leonardo Stovall DO [address] [facility] [address] [facility] [address] [place] [address] Health Maintenance Due Date Last Done Comments Breast Cancer Screening 1955 Colorectal Cancer Screening: Annual FOBT 2004 Colorectal Cancer Screening: Colonoscopy 2004 Colorectal Cancer Screening: Sigmoidoscopy 2004 Pneumococcal Vaccine: 50+ Years Completed 07/17/2022, 07/19/2021, 07/19/2020 Influenza Vaccine Completed 08/03/2024, , 07/28/2021, Additional history exists Hepatitis B Vaccine Aged Out No longe r eligible based on patient's age to complete this topic Insurance [facility] [id number] Care Teams Termite Control Technician Relationship Specialty Start Date End Date Sugey Rice MD [address] [address] PCP - General Family Medicine 09/04/21
--- OUTSIDE RECORDS SUMMARY | 2025-03-17 10:29 | XMS_ITS | Encounter Summary ---
Author Organization [facility] Address [address] [place] [address] Phone Care Team Providers Care Char Filter Operator Name Role Phone Sugey Rice MD Primary Care Provider [phone] Encounter Details Date Type Department Care Team (Late Contact Info) Description 07/25/2023 Documentation Only [facility] [place], [address] [place] [phone] Leonardo Stovall DO [address] [facility] [address] [place] [address] Social History Tobacco Use Types [...] Visit [facility] [place] [facility] [place] [address] [place] [phone] Leonardo Stovall DO [address] [facility] [place] [address] documented as of this encounter Visit Diagnoses Not on filedocumented in this encounter Care Teams Char Filter Operator Relationship Specialty Start Date End Date Sugey Rice MD [address] [address] PCP - General Family Medicine 09/04/21 documented as of this encounter
--- OUTSIDE RECORDS SUMMARY | 2025-03-17 10:29 | XMS_ITS | Clinical Summary ---
Author Organization [facility] Address [address] [place] [address] Care Team Providers Care Sodder Name Role Phone Sugey Rice MD Primary Care Provider [phone] Allergies Active Allergy Reactions Criticality Noted Date [...] AM EST Office [place] [facility] [address] Gurjit Steele MD [facility] arthritis (Primary Dx) [...] AM EDT Office Visit [facility] [address] [address] Gurjit Steele MD [address] [address] 06/29/2025 10:30 AM EDT Office Visit [facility] [place] [address] [place] [address] Josef Loya MD 80 [place] [address] Health Maintenance Due Date Last Done Comments [...] this topic Medical Devices Explanted Type Area Commanding Officer Traffic Division Device Identifier Shelf Expiration Date Model / Serial / Lot [id number] Stent Ureteral 6fr 26cm Taper Tip Bldr Benjie Lp Contour Hdr+ - [id number] Implanted:Qty : 1 on 03/29/2024 by Josef Loya MD at [facility] Explanted:Qty : 1 on 04/07/2024 by Josef Loya MD Stent Right: Ureter [employer] [id number] 11/30/2026 [id number] 30 / / [id number] Insurance MEDICARE PART A & B [facility] MEDICARE PART A & B [facility] Care Teams Sodder Relationship Specialty Start Date End Date Sugey Rice MD [address] [facility] [address] [place] [address] PCP - General Family Medicine 05/05/23
--- OUTSIDE RECORDS SUMMARY | 2025-03-17 10:29 | XMS_ITS | Encounter Summary ---
Author Organization [facility] Address [address] [place] [address] Phone Care Team Providers Care Director Of Services Name Role Phone Sugey Rice MD Primary Care Provider [phone] Encounter Details Date Type Department Care Team (Late Contact Info) Description 08/04/2023 Documentation Only [facility] [place], [address] [place] [address] Leonardo Stovall DO [address] [facility] [place] [address] Social History Tobacco Use Types [...] Visit [facility] [place] [facility] [place] [address] [place] [phone] Leonardo Stovall DO [address] [facility] [place] [address] documented as of this encounter Visit Diagnoses Not on filedocumented in this encounter Care Teams Director Of Services Relationship Specialty Start Date End Date Sugey Rice MD [address] [address] PCP - General Family Medicine 09/04/21 documented as of this encounter
--- OUTSIDE RECORDS SUMMARY | 2025-03-17 10:29 | XMS_ITS | Encounter Summary ---
Author Organization [facility] Address [address] [place] [address] Care Team Providers Care Chain Saw Mechanic Name Role Phone Sugey Rice MD Primary Care Provider [phone] Encounter Details Date Type Department Care Team (Late st Contact Info) Description 09/23/2024 Scanned Document Orthopedic [address] [address] Gurjit Steele MD [address] [place] [address] Social History Tobacco Use Types Packs/Day Years [...] 10:00 AM EDT [facility] 7 [facility] [address] [place] [address] Gurjit Steele MD 31 [facility] 100 [place] [address] 06/29/2025 10:30 AM EDT Office Visit [facility] [place] [address] [place] [address] Josef Loya MD 80 [place] [address] documented as of this encounter Visit Diagnoses Not on filedocumented in this encounter Care Teams Chain Saw Mechanic Relationship Specialty Start Date End Date Sugey Rice MD [address] [place] [address] [address] [place] [address] PCP - General Family Medicine 05/05/23 documented as of this encounter
== END 2025-03-17 10:36 | disposition home or self-care (01) ==
LOC: HO.HPS 09:34
PROVIDERS: PCP Family Medicine; Visit Provider Hospitalist
DX: J45.20 Mild intermittent asthma, uncomplicated (principal); J98.4 Other disorders of lung; G47.33 Obstructive sleep apnea (adult) (pediatric); I27.20 Pulmonary hypertension, unspecified; R91.8 Other nonspecific abnormal finding of lung field; R06.09 Other forms of dyspnea; D50.8 Other iron deficiency anemias
CPT/HCPCS: 99214; G2211

== ENCOUNTER → 2025-03-17 09:33 | Outpatient (BNVA) | payer MEDICARE, OTHER, SELFPAY | PROVIDERS: PCP Family Medicine; Visit Provider Hospitalist | DX: J45.20 Mild intermittent asthma, uncomplicated (principal); J98.4 Other disorders of lung; G47.33 Obstructive sleep apnea (adult) (pediatric); I27.20 Pulmonary hypertension, unspecified; R91.8 Other nonspecific abnormal finding of lung field; R06.00 Dyspnea, unspecified; D50.8 Other iron deficiency anemias; Z99.89 Dependence on other enabling machines and devices | CPT/HCPCS: 99212 ==

== ENCOUNTER → 2025-04-18 10:55 | Outpatient (REF) | payer MEDICARE, OTHER, SELFPAY ==
--- NOTE | 2025-04-18 10:59 | CA_ITS ---
Transthoracic Echocardiogram Patient (Last, First, Middle): Danita Randle, Gender: Female Date of : 1955 Age: 69 Procedure Date: 04/18/2025 Procedure Type: Transthoracic Echocardiogram Location: OP Height: 167.64 cm Weight: 122.93 kg BSA: 2.28 m2 Heart Rate: 56 bpm BP: 146 / 56 mmHg Radiotelegrapher: SB Referring MD: Darren Garrett MD Symptoms: I42.9 - Cardiomyopathy, unspecified/ I27.20 pulmonary hypertension Study Quality: Adequate ECG Rhythm: Bradycardia Conclusions: - The left ventricular systolic function is normal. The visually estimated ejection fraction is between 65-70%. - There is mild to moderate tricuspid valve regurgitation. - The right ventricular systolic pressure is 55 mmHg. Moderate pulmonary hypertension is present. - The inferior vena cava is mildly dilated and collapses less than 50% with inspiration. Findings Left Ventricle Normal left ventricular cavity size. The left ventricular systolic function is normal. The visually estimated ejection fraction is between 65-70%. There is no evidence of regional wall motion abnormalities. Right Ventricle Mildly increased right ventricular cavity size. There is normal right ventricular systolic function. Atria The right atrium is mildly dilated. Tricuspid Valve There is mild to moderate tricuspid valve regurgitation. The right ventricular systolic pressure is 55 mmHg. Moderate pulmonary hypertension is present. Venous The inferior vena cava is mildly dilated and collapses less than 50% with inspiration. Pericardium/Pleural There is no evidence of pericardial effusion. Prior Study Comparison No significant change compared to prior study dated: 10/29/2024. Measurements 2D Linear Measurements LVIDd: 5.24 3.9-5.3/4.2-5.9 cm LVIDd Index: 2.30 2.4-3.2/2.2-3.1 cm/m2 LVIDs: 3.20 2.0-3.6 cm 2D Systolic Function EF 4C: 68.10 >55% EF 2C: 76.20 >55% EF BiP: 72.00 >55% Right Ventricle TAPSE (mm): 33.00 TVS' Theron: 14.60 Tricuspid Valve TR Pk Theron: 3.16 TR Pk Grad: 40.00 RA Press: 15.00 RVSP: 55.00 Updated in Other Vendor System with Status of Final Paras Cortes MD electronically signed on 04/19/2025 2:22:22 PM with status of Final
--- OUTSIDE RECORDS SUMMARY | 2025-04-18 12:08 | XMS_ITS | Encounter Summary ---
Author Organization [facility] Address [address] [place] [address] Care Team Providers Care College Counselor Name Role Phone Sugey Rice MD Primary Care Provider [phone] Reason for Visit * Reason Comments Appointment Encounter Details Date Type Department Care Team (Late st Contact Info) Description 02/05/[address] [address] Josef Loya MD 80 [place] [address] Appointment Social History Tobacco Use Types Packs/Day [...] Care Team (Late st Contact Info) Description 04/20/2025 2:30 PM EDT Office Visit [facility] [place] [facility] [address] [place] [address] Gurjit Steele MD 31 [facility] 100 [place] [address] 06/13/2025 11:45 AM EDT Appointment [facility] Radiology [facility] [address] [place] [address] Josef Loya MD 80 [place] [address] 06/29/2025 10:30 AM EDT Office Visit [facility] [place] [address] [place] [phone] Josef Loya MD 80 [place], [place] [phone] 07/14/2025 7:40 AM EDT Consult [facility] [place] [address] [phone] Sharda Jessica, AUTO RENTAL SUPERVISOR [address] [place] [address] Lissy Pringle, AUTO RENTAL SUPERVISOR [address] [phone] 07/26/2025 11:00 AM EDT Office [facility] 100 [facility] 101 [place] [address] Nicole Olivier PA-C 100 [place] [address] documented as of this encounter Visit Diagnoses Not on filedocumented in this encounter Care Teams College Counselor Relationship Specialty Start Date End Date Sugey Rice MD [address] [place] [address] 207 [place] [address] PCP - General Family Medicine 05/05/23 documented as of this encounter
== END ==
LOC: HO.CARD 10:55
PROVIDERS: PCP Family Medicine; Visit Provider Internal Medicine Cardiovascular Disease
DX: I42.9 Cardiomyopathy, unspecified (principal); I27.20 Pulmonary hypertension, unspecified
CPT/HCPCS: 93308

== ENCOUNTER → 2025-04-18 10:59 | Outpatient (BNV) | payer MEDICARE, OTHER, SELFPAY | PROVIDERS: PCP Family Medicine; Visit Provider Internal Medicine | DX: I27.20 Pulmonary hypertension, unspecified (principal); I36.1 Nonrheumatic tricuspid (valve) insufficiency | CPT/HCPCS: 93308 ==

== ENCOUNTER 2025-07-19 12:58 | Outpatient (AMB) | payer MEDICARE, OTHER, SELFPAY ==
--- NOTE | 2025-07-19 13:04 | A.OFFVIS_ITS ---
Vital Signs 07/19/25 13:05 Height 5 ft 6 in Weight 265 lb 10.512 oz BMI 42.9 BP 140/62 H Blood Pressure Location Lt brachial Position Sitting Pulse 65 Pulse Source Pulse Oximeter Pulse Oximetry (%) 97 Oxygen Delivery Method Room Air Intake Visit Reasons: Asthma Color Repairer Required: No Accompanied by: Self / Same As Patient Allergies amoxicillin Allergy (Verified 07/19/25 13:13) hives ciprofloxacin Allergy (Verified 07/19/25 13:13) Hives latex Allergy (Verified 07/19/25 13:13) vaginal itching HPI Comments Details: The patient is a 70 year woman presenting with an abnormal pulmonary function study and CT scan. Apparently the patient has been having worsening shortness of breath. She has a rescue inhaler. She does use it as needed. Typically less than 2 times a week. She did undergo pulmonary function studies at [facility] which I personally reviewed. She appeared to have a mild obstruction consistent with obstructive airway disease in addition to that she had a mild restrictive ventilatory defect consistent with restrictive lung. She also had a mild decrease in the diffusing capacity but corrected to normal when corrected for the alveolar volume that suggest mainly extrinsic cause for the diffusion impairment. The patient also underwent a CT scan after having the abnormal pulmonary function study which I also personally reviewed. It appeared that her trachea appeared to be flat in a little bit consistent with tracheomalacia. This is mainly the mid and distal part of the trachea. In addition to that she has small subcentimeter pulmonary nodules have any follow- up in a year's time. No significant interstitial lung disease except she did have some areas of scarring primarily in the right middle lobe area and also at the bases just some areas of atelectasis and some reticular changes. Although no overt interstitial lung disease appreciated. And no significant ground-glass opacities appreciated. She was feeling much better prior to the appointment but then about a week ago she was eating popcorn and she aspirated some pop according to her lungs. She was coughing a lot she has been coughing significant amount of lately. Last night she did a little better but the night before she did have a hard time sleeping because of cough. She did have some codeine that she could take that helped relieve some of the symptoms. She was able to remove some specks out of the airways which she noticed some specks in her sputum. In the office she does have some wheezing right more than left. Will have her get an x-ray to see if there is any significant collapsibility atelectasis of the lungs from any foreign body. In the meantime though will go ahead and start her on inhaled cortical steroid. And although she has wheezing will avoid systemic steroids since she just recently had surgery of her hand. The patient also provide an aerobika CPT device to try to use it multiple times a day to try to help her with bronchopulmonary hygiene and mucus clearance and hopefully removal of any residual foreign body in her lungs. She will undergo a chest x-ray to assess for any significant findings. If she does have evidence of pneumonia I will send some antibiotics in the pharmacy as well. If the patient shows no improvement of her symptoms then a evaluation with bronchoscopy may be warranted just to look for any persistent foreign bodies. However, will hopefully avoid any semi invasive procedures she is able to clear up her own secretions at this time. 11/25/2024 the patient is here for pulmonary follow-up visit. The patient overall has been feeling a lot better. She ended up in the hospital after being diagnosed with AFib flutter. This is on the day of the bronchoscopy. Therefore we had to postpone the bronchoscopy initially. She did have a CT scan of the chest demonstrating a pneumonia on the right lower lobe consistent with an obstruction. Therefore once her cardiac status was stable she did undergo a bronchoscopy and a foreign body was removed in this case it was a corn popcorn kernel. The patient is feeling a lot better. She has use still using the Wixela twice a day. Will see about weaning her office since her breathing is better. She does complaint of some burning sensation in the substernal is area when she is exercising. I encourage her to not exercises hard and we did reach out to Cardiology in order for her to have a stress test. She also has atrial flutter and will likely need cardioversion at some point. The patient does have also some evidence of pulmonary hypertension. Explained to his multifactorial. The patient does have daytime drowsiness. Her [place] score is 11/24. She may have a component of untreated sleep apnea that is likely contributing to the pulmonary hypertension. In addition to that the stress of having the pneumonia the obstruction from the aspiration and also the a flutter are also contributing. Hopefully these entities will subside and she can feel better. In the meantime will give her 3 days of Lasix that she can start once she is ready to try to remove some fluid off her body. 02/03/2025 the patient is here for pulmonary follow-up visit. The patient has a lot of concerns. She did start the CPAP therapy and CPAP therapy has been affecting beneficial. AHI is down to 0.4. She is using more than 4 hours a night. She is that the nasal pillows, P 10 is working well although she still has a little air leakage through her mouth. She benefits from a chinstrap. In addition to that she is getting some dryness in her mouth and along with a chinstrap the patient will benefit from heated tubing. Will request that from her [employer] company, like supply. In the meantime the patient has been working with Cardiology. She does have in arrhythmia and does require a calcium channel addie. She has been noticing some low heart rates in the 30s at nighttime and also has been having some baseline heart rates in the low 50s. Although we did go for a walking heart rate did increase to 65 beats per minute quickly. She will continue taking the calcium channel addie and needs to follow-up closely with Cardiology. In addition to that she had some bleeding rectal bleeding after starting the Eliquis. Her hemoglobin dropped from 13 g to 10 g. she needs to go back on the Eliquis because of the risks some stroke. Will have her recheck her hemoglobin again and check her iron before she does so. Hopefully will know by today. Today she is also going to undergo a CT scan of the coronary arteries to assess for any coronary artery disease. The patient is also wondering about pulmonary hypertension. We did talk about the different ossifications. She likely has W HI class 2 and 3. She is going to have an echocardiogram rescheduled to be done closer to 3-4 months from now. She understands that the ECHO is only an estimate of the pressures. From a breathing standpoint she is doing good she has not required any inhalers. And denies any aspirations. 03/17/2025 the patient is here for pulmonary follow-up visit. Overall she is doing better. She has tolerated the CPAP now. The CPAP therapy has been affecting beneficial. She does use nasal pillows and sometimes they do leak and sometimes they loosen. She does have issues with opening up her mouth also and she probably has some air leakage through the mouth. Her AHI is very well controlled at 0.4 episodes an hour. Her uses more than 4 hours which is excellent. She still having some daytime drowsiness with slight elevation in the [place] score. However, she understands that this therapies primarily for the heart and for her cerebrovascular health. In due time she is start feeling little better from energy standpoint. The patient also has been working on her cardioprotective medications. She has had some medication adjustments the seem to be better for her. She was able to go back to the Eliquis. She has not had any more bleeding. She was wondering about a Watchman procedure. I did advise her to only undergo Watchman procedure if there is further absolute contraindications for the anticoagulation. At this point she seems to be tolerating it just fine. Also to note she did undergo colonoscopy without any evidence of any lesions which is reassuring. 07/19/2025 the patient is here for pulmonary follow-up visit. Overall she is doing very well. She is tolerating her CPAP. CPAP therapy has been affecting beneficial. Her AHI is 0.3. Sometimes she has some air leakage from her nasal pillows. Although seems to be working well. In the meantime her asthma symptoms are also better. She has not had to use her rescue inhaler. The patient is still dealing with the issues with elevated pulmonary pressures. Will go ahead and request an overnight oximetry to assess her nocturnal oxygen to make sure that is effective with the use of the CPAP. If she does have evidence of hypoxia then I titration study may be necessary. She continues on the Eliquis. She has been tolerating it well. And she did get a pacemaker and she is feeling better. She is going to be starting Zepbound or she did start Zepbound and will going to monitor closely her weight this also help her with her breathing overall. We did review her last CT scan which is significant for an airspace disease in the right lower lobe area likely secondary to the obstruction. Will plan to repeat the CAT scan in the next visit to make sure that is cleared. [facility] Medical History (Updated 07/19/25 @ 13:36 by Yousuf Thorpe MD) Asthma Iron deficiency anemia Dyspnea Atrial flutter Pulmonary hypertension YOSHI (obstructive sleep apnea) Chronic restrictive lung disease Pulmonary nodules Social History (Updated 03/17/25 @ 10:01 by Bryanna Parker CMA) Household Members: Spouse and Children Housing: House Do you presently have visiting nurse or other home services: No Alcohol intake: never Patient Tobacco Use Status: Never used Tobacco service: No Review of Systems Const Denies chills, Denies fatigue, Denies fever(s), Denies weight gain and Denies weight loss ENT Denies dizziness Card Denies chest pain, Reports leg edema, Denies lightheadedness, Denies palpitations, Denies dyspnea on exertion, Denies orthopnea and Denies other Resp Denies cough and Denies dyspnea on exertion GI Denies hematochezia and Denies change in stool character Musc Denies abnormal gait, Denies muscle weakness, Denies numbness, Denies radiating pain into limb and Denies tingling Neuro Denies abnormal gait, Denies dizziness, Denies numbness and Denies tingling Endo Denies fatigue and Denies palpitations Physical Exam Vital Signs: Last Vital Signs Pulse 65 07/19/25 13:05 BP 140/62 H 07/19/25 13:05 Pulse Ox 97 07/19/25 13:05 Oxygen Delivery Method Room Air 07/19/25 13:05 BMI result Body Mass Index 42.9 Last Vital Signs Temp 98.0 F 10/31/24 08:00 Pulse 80 10/31/24 08:00 Resp 18 10/31/24 08:00 BP 119/67 10/31/24 08:00 Pulse Ox 95 10/31/24 08:00 O2 Del Method Room Air 10/31/24 08:00 BMI result Body Mass Index 43.4 Const General: comfortable HEENT Head: Yes normocephalic Neck Neck: Yes supple Chest Chest palpation & inspection: Pacemaker present Resp Effort & Inspection: normal respiratory effort Auscultation: clear to auscultation bilaterally, no crackles, no rales and no rhonchi Cardio Heart sounds: S1 normal heart sound present and S2 normal heart sound present GI Palpation (GI): Soft to palpation Skin General skin exam: no rashes or lesions noted Extrem General: No clubbing, No cyanosis and Yes edema Assessment & Plan Assessment & Plan (1) YOSHI (obstructive sleep apnea): Code(s): G47.33 - Obstructive sleep apnea (adult) (pediatric) Category: Medical (2) Pulmonary hypertension: Code(s): I27.20 - Pulmonary hypertension, unspecified Category: Medical (3) Dyspnea: Code(s): R06.00 - Dyspnea, unspecified Category: Medical Qualifiers: Dyspnea type: dyspnea on exertion Qualified Code(s): R06.09 - Other forms of dyspnea (4) Iron deficiency anemia: Code(s): D50.9 - Iron deficiency anemia, unspecified Category: Medical Qualifiers: Iron deficiency anemia type: other iron deficiency Qualified Code(s): D50.8 - Other iron deficiency anemias (5) Asthma: Code(s): J45.909 - Unspecified asthma, uncomplicated Category: Medical Qualifiers: Asthma complication type: uncomplicated Asthma persistence: intermittent Asthma severity: mild Qualified Code(s): J45.20 - Mild intermittent asthma, uncomplicated Plan JOSELUIS as needed Aerobika to use 2-4 times aday continue APAP, needs climate tubing and chin strap, using [employer], DME. Will trial N30i small mask continue Eliquis diuresis as tolerated Low sodium diet Overnight oximetry while on APAP RA F/U 4 months Orders: Orders Overnight Pulse Oximetry Today J45.20 - Mild intermittent asthma, uncomplicated Coding Level of Care Code Est Pt Level 4 (20801) Complex EM visit Add On G2211 Diagnoses YOSHI (obstructive sleep apnea) G47.33 Pulmonary hypertension I27.20 Dyspnea on exertion R06.09 Dyspnea type: dyspnea on exertion Other iron deficiency anemia D50.8 Iron deficiency anemia type: other iron deficiency Mild intermittent asthma without complication J45.20 Asthma complication type: uncomplicated Asthma persistence: intermittent Asthma severity: mild Time Spent (min) 18
[2025-07-19 13:05] VITALS: BP 140/62; PULSE 65; O2SAT 97; BMI 42.9
--- OUTSIDE RECORDS SUMMARY | 2025-07-19 14:18 | XMS_ITS ---
[facility] Name [facility] Organization Unknown Results Test Name/Text Value Interpretation Date Range Source COMPONENT 1 REPORT Normal 2024 [facility] STONE WEIGHT 0.031 g Normal 2024 [facility] History of Medication Use Medication Directions Dispensed Refills Start Date End Date Stat rosuvastatin (CRESTOR) 10 MG tablet Take 1 tablet every day by oral route at bedtime for 90 days. 06/20/2025 active tirzepatide (Zepbound) 2.5 mg/0.5 mL subcutaneous injection Inject 0.5 mL (2.5 mg total) under the skin every 7 days. 05/19/2025 active pravastatin (PRAVACHOL) 40 MG tablet Take 1 tablet (40 mg total) by mouth. 05/09/2025 active spironolactone (ALDACTONE) 25 MG tablet Take 1 tablet (25 mg total) by mouth. 05/03/2025 active apixaban (ELIQUIS) 5 MG tablet Take 1 tablet (5 mg total) by mouth. 10/31/2024 active oxyCODONE-acetaminophe n (PERCOCET) 5-325 mg per tablet Take 1 tablet by mouth Every 4 (four) to 6 (six) hours as needed for severe pain. Max Daily Amount: 6 tablets 09/22/2024 active phenazopyridine (PYRIDIUM) 200 MG tablet Take 1 tablet (200 mg total) by mouth 3 (three) times a day in the morning, mid-day and early evening. 03/29/2024 active lisinopril (PRINIVIL,ZeSTRIL) 10 MG tablet Take 1 tablet (10 mg total) by mouth nightly. 01/06/2024 active amLODIPine (NORVASC) 5 MG tablet Take 1 tablet (5 mg total) by mouth nightly. 12/16/2023 active amLODIPine (NORVASC) 5 MG tablet Take 0.5 tablets (2.5 mg total) by mouth nightly. 12/16/2023 active betamethasone acetate-betamethasone sodium phosphate (CELESTONE) injection 3 mg 10/29/2023 02/18/2024 active amLODIPine (NORVASC) 5 mg tablet amlodipine 5 mg tablet 09/07/2021 active Acetaminophen (TYLENOL PO) Take by mouth as needed. active amLODIPine-benazepril (LOTREL) 5-10 mg per capsule Take by mouth. active egsgmufbv-yecczvhj-ajr -hyalur 40-5-3.3 mg tablet daily. active Cholecalciferol (Vitamin D) 50 MCG (2000 UT) tablet active losartan (COZAAR) 50 MG tablet Take 1 tablet (50 mg total) by mouth. active Potassium Citrate ER 15 MEQ (1620 MG) Tab CR 60 mEq 2 times a day. active Potassium Citrate ER 15 MEQ (1620 MG) Tab CR 40 mEq 2 times a day. active Allergies Allergen Reaction Severity Comment Documented Date Source Statu s WATERMELON 07/23/2022 [facility] active LATEX OTHER (SEE COMMENTS) 09/06/2021 [facility] active VARICELLA-ZOSTER IMMUNE GLOB SWELLING swelling and itching to arm for over a week after she had vaccine 05/13/2019 [facility] active AMOXICILLIN OTHER (SEE COMMENTS) [facility] CIPROFLOXACIN OTHER (SEE COMMENTS) [facility] VARICELLA-ZOSTER GE-AS01B (PF) SWELLING swelling and itching to arm for over a week after she had vaccine [facility] Problems Problem Status Onset Date Problem Type Date of Resolution Source Pruritus active 2021-12-20 ProblemAct [facility] Other rosacea active 2017-06-10 ProblemAct [facility] T Ovarian cyst active 2024-02-16 ProblemAct [facility] Neck pain active 2025-05-19 ProblemAct [facility] Vitamin D deficiency active 2021-09-06 ProblemAct [facility] Morbid obesity with BMI of 40.0-44.9, adult active 2023-10-04 ProblemAct [facility] Other seborrheic keratosis active 2020-11-22 ProblemAct [facility] Venous insufficiency active 2024-12-01 ProblemAct [facility] Uric acid stone in urine active EncounterDiagnosisAct [facility] Pulmonary hypertension active 2024-11-26 ProblemAct [facility] Varicose veins of bilateral lower extremities with other complications active 2003-09-17 ProblemAct [facility] Actinic keratosis active 2021-09-10 ProblemAct [facility] Other pruritus active 2020-11-[address] Other benign neoplasm of skin of right lower limb, including hip active 2020-11-22 ProblemAct [facility] Mild CAD active 2025-04-20 ProblemAct [facility] Superficial phlebitis and thrombophlebitis of right lower extremity active 2023-11-25 ProblemAct [facility] Lung nodule active 2024-10-20 ProblemAct [facility] Tubular adenoma active 2020-04-03 ProblemAct [facility] Moderate persistent asthma active 2024-10-20 ProblemAct [facility] Other benign neoplasm of skin of trunk active 2020-11-22 ProblemAct [facility] Stage 3a chronic kidney disease active 2021-09-07 ProblemAct [facility] Kidney stone active EncounterDiagnosisAct [facility] [place] or callus active 2020-11-[address] 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 active 2025-05-19 ProblemAct [facility] Prediabetes active 2024-10-07 ProblemAct [facility] Restrictive lung disease active 2024-10-20 ProblemAct [facility] Melanocytic nevi, unspecified active 2020-11-22 ProblemAct [facility] Other specified health status active 2017-06-10 ProblemAct [facility] Osteoarthritis of right subtalar joint active 2025-05-19 ProblemAct [facility] Capillary disease active 2021-09-10 ProblemAct [facility] Melanocytic nevus of upper extremity active 2016-03-31 ProblemAct [facility] Encounters Encounter Type Encounter Reason Primary Diagnosis Location Date Ambulatory Obesity, class 3 Obesity, class 3 [employer] 07/08/2025 Ambulatory Calculus of kidney Calculus of kidney [facility] 06/29/2025 Ambulatory [employer] 06/13/2025 Ambulatory Calculus of kidney Calculus of kidney [facility] 06/13/2025 Ambulatory Obesity, class 3 Obesity, class 3 [employer] 06/06/2025 Ambulatory Obesity, class 3 Obesity, class 3 [employer] 05/19/2025 Ambulatory [facility] 04/20/2025 Ambulatory Trigger finger, righ t index finger Trigger finger, right index finger [employer] 04/20/2025 Ambulatory [facility] 04/06/2025 Ambulatory Follow-up Follow-up [facility] [employer] 03/23/2025 Ambulatory Primary osteoarthritis, unspecified hand Primary osteoarthritis, unspecified hand [facility] [employer] 12/22/2024 Ambulatory Finger-joint replacement of left hand Finger-joint replacement of left hand [facility] [employer] 11/18/2024 Ambulatory Finger-joint replacement of left hand Finger-joint replacement of left hand [facility] [employer] 10/27/2024 Ambulatory Unilateral primary osteoarthritis of first carpometacarpal joint, right hand Unilateral primary osteoarthritis of first carpometacarpal joint, right hand [facility] [employer] 10/27/2024 Ambulatory [facility] [employer] 10/13/2024 Ambulatory [facility] [employer] 10/13/2024 Ambulatory Finger-joint replacement of left hand Finger-joint replacement of left hand [facility] [employer] 10/06/2024 Ambulatory [facility] [employer] 10/06/2024 Ambulatory Pain in right finger(s) Pain in right finger(s) [facility] [employer] 10/06/2024 Ambulatory Primary osteoarthritis, unspecified hand Primary osteoarthritis, unspecified hand [facility] [employer] 09/29/2024 Ambulatory Pain, unspecified Pain, unspecified [facility] [employer] 09/28/2024 Ambulatory MODIFY Primary osteoarthritis, unspecified hand [facility] 09/23/2024 Ambulatory Primary osteoarthritis, unspecified hand Primary osteoarthritis, unspecified hand [facility] [employer] 07/14/2024 [facility]culus [facility] Primary osteoarthritis, unspecified hand Primary osteoarthritis, unspecified hand [facility] [employer] 06/16/2024 Ambulatory Calculus of kidney Calculus of kidney [facility] 04/07/2024 Ambulatory Calculus of kidney Calculus of kidney [facility] 03/29/2024 Ambulatory [facility] [employer] 03/08/2024 Ambulatory [facility] [employer] 03/08/2024 Ambulatory Calculus of kidney Calculus of kidney [facility] 03/03/2024 Ambulatory Primary osteoarthritis, unspecified hand Primary osteoarthritis, unspecified hand [facility] 02/18/2024 Ambulatory Primary osteoarthritis, unspecified hand Primary osteoarthritis, unspecified hand [facility] [employer] 12/24/2023 Ambulatory Pain in right finger(s) Pain in right finger(s) [facility] 10/29/2023 Ambulatory Pain, unspecified [facility] 05/05/2023 Ambulatory Pain, unspecified [facility] 05/05/2023 Ambulatory Pain, unspecified [facility] 05/05/2023 Ambulatory [facility] 01/24/2023 Ambulatory Primary osteoarthritis, left ankle and foot [facility] 12/13/2022 Ambulatory Primary osteoarthritis, left ankle and foot [facility] 10[facility]21[facility]2022 Ambulatory [facility] 07/23/2022 Ambulatory Primary osteoarthritis, left ankle and foot [facility] 07/23/2022 Care Team Organization Name Specialty Phone Email Start Date End Da te [facility]AN [facility] 03/23/2025 [facility] 07/14/2024 [facility] [employer] NII RICE Primary Care 05/05/2023 023 [facility] 05/05/2023 05/05/2023 [facility] Nii Rice [facility] 05/05/2023 Critical access hospital NO PCP Primary Care 07/23/202204/2022 Critical access hospital PCP,No Primary Care 07/23/2022
--- OUTSIDE RECORDS SUMMARY | 2025-07-19 14:18 | XMS_ITS | Encounter Summary ---
Author Organization [facility] Address [address] [place] [address] Phone Care Team Providers Care Creative Guru Name Role Phone Sugey Rice MD Primary Care Provider [phone] Encounter Details Date Type Department Care Team (Late st Contact Info) Description 08/04/2023 Documentation Only [facility], [address] [place] [address] Leonardo Stovall DO [address] [place] [address] Social History Tobacco Use Types [...] Care Team (Late st Contact Info) Description 09/06/2025 4:00 PM EDT Office Visit [facility] [address] [place] [id number] Leonardo Stovall DO [address] [place] [address] documented as of this encounter Visit Diagnoses Not on filedocumented in this encounter Care Teams Creative Guru Relationship Specialty Start Date End [place]ugey [place] [address] [address] PCP - General Family Medicine 09/04/21 documented as of this encounter
--- OUTSIDE RECORDS SUMMARY | 2025-07-19 14:18 | XMS_ITS | Clinical Summary ---
Author Organization Formerly [facility] Address [address] [place] [address] Care Team Providers Care Form Carpenter Name Role Phone Pcp, No MD Primary [...] capsule Take by mouth. 2 Active cartilage-colla [id number]-ebxdhf 40-5-3.3 mg tablet daily. Active lisinopriL (PRINIVIL) [...] Tdap) 04/17/2022 04/17/2012 COVID-19 Vaccine ( - 2024- season) 2025 08/03/2022, 06/01/2022, 08/10/2021, Additional history exists Influenza Vaccine (#1) 2025 , 07/28/2021, 07/28/2021, Additional history exists Zoster [...] patient's age to complete this topic Insurance [facility] MEDICARE PART A & B Care Teams Form Carpenter Relationship Specialty Start Date End Date Gloria Zuñiga MD [address] [place] [address] PCP - General Internal Medicine 07/02/22
--- OUTSIDE RECORDS SUMMARY | 2025-07-19 14:18 | XMS_ITS | Encounter Summary ---
Author Organization [facility] Address [address] [place] [address] Phone Care Team Providers Care Clay Artisan Name Role Phone Sugey Rice MD Primary Care Provider [phone] Encounter Details Date Type Department Care Team (Late st Contact Info) Description 12/17/2024 Documentation Only [facility] [place], [address] [place] [address] [place], [place] [address] [place] [phone] Social History Tobacco Use Types Packs/Day Years [...] Visit [facility] [address] [place] [address] Leonardo Stovall [address] [place] [address] documented as of this encounter Visit Diagnoses Not on filedocumented in this encounter Care Teams Clay Artisan Relationship Specialty Start Date End Date Sugey Rice MD [address] [address] PCP - General Family Medicine 09/04/21 documented as of this encounter
--- OUTSIDE RECORDS SUMMARY | 2025-07-19 14:18 | XMS_ITS | Encounter Summary ---
Author Organization [facility] Address [address] [place] [address] Phone Care Team Providers Care Phlebotomist Associate Name Role Phone Sugey Rice MD Primary Care Provider [phone] Reason for Visit * Reason Comments Med Refill Encounter Details Date Type Department Care Team (Late Contact Info) Description 10/24/2024 Refill [facility] [address] [place] [phone] Leonardo Stovall DO [address] [place] [address] Social History Tobacco Use Types [...] Visit [facility] [address] [place] [address] Leonardo Stovall DO [address] [place] [address] documented as of this encounter Visit Diagnoses Not on filedocumented in this encounter Care Teams Phlebotomist Associate Relationship Specialty Start Date End Date Sugey Rice MD [address] [address] PCP - General Family Medicine 09/04/21 documented as of this encounter
--- OUTSIDE RECORDS SUMMARY | 2025-07-19 14:18 | XMS_ITS | Encounter Summary ---
Author Organization [facility]ly [facility] Address [address] [place] [address] Care Team Providers Care Winding Lathe Operator Name Role Phone Sugey Rice MD Primary Care Provider [phone] Encounter Details Date Type Department Care Team (Late st Contact Info) Description 01/02/2022 Erroneous Encounter [facility]PT [address] [place] [phone] Provider, MD Frank Social History Tobacco Use [...] Care Team (Late st Contact Info) Description 08/19/2025 10:00 AM EDT Office Visit [facility] Medical Weight [facility] [place] [address] [place] [phone] Lissy Pringle, TALKBACK HOST [address] [place] [address] 09/09/2025 2:30 PM EDT Clinical Support [facility] Nutrition [place] [address] [place] [phone] [place] [address] documented as of this encounter Visit Diagnoses Not on filedocumented in this encounter Care Teams Winding Lathe Operator Relationship Specialty Start Date End Date Sugey Rice MD [address] [address] PCP - General Family Medicine 05/05/23 documented as of this encounter
--- OUTSIDE RECORDS SUMMARY | 2025-07-19 14:18 | XMS_ITS | Encounter Summary ---
Author Organization [facility] Address [address] [place] [address] Phone Care Team Providers Care Ion Exchange Operator Name Role Phone Sugey Rice MD Primary Care Provider [phone] Encounter Details Date Type Department Care Team (Late st Contact Info) Description 07/29/2023 Documentation Only [facility] [place], [address] [place] [address] [place], [place] [address] [place] [phone] Social History Tobacco Use Types Packs/Day Years [...] Visit [facility] [address] [place] [address] Leonardo Stovall [address] [place] [address] documented as of this encounter Visit Diagnoses Not on filedocumented in this encounter Care Teams Ion Exchange Operator Relationship Specialty Start Date End Date Sugey Rice MD [address] [address] PCP - General Family Medicine 09/04/21 documented as of this encounter
--- OUTSIDE RECORDS SUMMARY | 2025-07-19 14:18 | XMS_ITS | Clinical Summary ---
Author Organization [facility] [place], Address [address] [place] [address] [place] [address] Phone Care Team Providers Care Meter Technician Name Role Phone Sugey Rice MD Primary Care Provider [phone] Allergies Active Allergy Reactions Criticality Noted Date [...] each day 90 tablet 3 08/24/20 24 025 Active pravastatin (PRAVACHOL) 10 MG tablet Take 10 mg by mouth 1 (one) time each day Active dilTIAZem CD (CARDIZEM CD) 120 MG 24 hr capsule Take 120 mg by mouth 1 (one) time each day Active apixaban (Eliquis) 5 MG tablet Take 5 mg by mouth in the morning and 5 mg in the evening. Active potassium citrate 10 MEQ (1080 MG) CR tabletIndication s:Hypertensive heart and chronic kidney disease without heart failure, with stage 1 through stage 4 chronic kidney disease, or unspecified chronic kidney disease,Stage 3a chronic kidney disease (HCC),Essential hypertension Take 2 tablets (20 mEq total) by mouth in the morning and 2 tablets (20 mEq total) in the evening. Take with meals. Do not crush, chew, or split. 360 tablet 3 05/03/20 25 Active spironolactone (Aldactone) 25 MG tabletIndication s:Hypertensive heart and chronic kidney disease without heart failure, with stage 1 through stage 4 chronic kidney disease, or unspecified chronic kidney disease,Stage 3a chronic kidney disease (HCC),Essential hypertension Take 1 tablet (25 mg total) by mouth 1 (one) time each day 30 tablet 11 05/03/20 25 026 Active Active Problems Problem Noted Date Diagnosed Date Obstructive sleep apnea of adult 05/03/2025 Uric acid renal calculus 04/28/2024 Acute nontraumatic [...] Encounters Date Type Department Care Team Description 05/11/2025 Office Communication [facility] [address] [place] [address] Lissett Zacarias [place] 05/03/2025 4:15 PM EDT Office Visit [facility] [place] [address] [place] [address] Leonardo Stovall, Hypertensive heart and chronic kidney disease without heart failure, with stage 1 through stage 4 chronic kidney disease, or unspecified chronic kidney disease (Primary Dx); Stage 3a chronic kidney disease (HCC); Essential hypertension from Last 3 Months Immunizations Immunization Administration [...] Kidney disease Sibling 1 Son - high pearl glue drier Cancer Sibling 2 brother-SCC Relation Status Comments [...] Visit [facility] [place] [facility] [place] [address] [place] [address] Leonardo Stovall DO [address] [place] [address] Dr. [place] [address] Health Maintenance Due Date Last Done Comments Breast Cancer Screening 1955 Colorectal Cancer Screening: Annual FOBT 2004 Colorectal Cancer Screening: Colonoscopy 2004 Colorectal Cancer Screening: Sigmoidoscopy 2004 Influenza Vaccine (#1) 2025 , 07/20/2023, 07/28/2021, Additional history exists Pneumococcal Vaccine: 50+ Years Completed 07/17/2022, 07/19/2021, 07/19/2020 Hepatitis B Vaccine Aged Out No longe r eligible based on patient's age to complete this topic Procedures Procedure Name Priority Date/Time Associated Diagnosis Comments URIC ACID Routine 06/17/2025 8:21 AM EDT Hypertensive heart and chronic kidney disease without heart failure, with stage 1 through stage 4 chronic kidney disease, or unspecified chronic kidney disease Stage 3a chronic kidney disease (HCC) Essential hypertension RENAL FUNCTION PANEL Routine 06/17/2025 8:21 AM EDT Hypertensive heart and chronic kidney disease without heart failure, with stage 1 through stage 4 chronic kidney disease, or unspecified chronic kidney disease Stage 3a chronic kidney disease (HCC) Essential hypertension URIC ACID Routine 05/02/2025 8:53 AM EDT RENAL FUNCTION PANEL Routine 05/02/2025 8:51 AM EDT URINALYSIS WITH MICROSCOPIC Routine 05/02/2025 8:51 AM EDT MICROSCOPIC EXAMINATION - DO NOT USE Routine 05/02/2025 8:51 AM EDT from Last 3 Months Results * (ABNORMAL) Uric acid (06/17/2025 8:21 AM EDT) Only the most recent of2 resultswithin the time period is included. Uric Acid 7.8(H) 3.0 - 7.2 mg/dL [facility] Comment:Therapeutic target f or gout patients: <6.0 Blood Venous blood / Unknown 06/17/2025 8:21 AM EDT 06/17/2025 us Leonardo Stovall DO LAB BLOOD ORDERABLES Final Resu lt [facility] [address] [place] [address] * (ABNORMAL) Renal Function Panel (06/17/2025 8:21 AM EDT) Only the most recent of2 resultswithin the time period is included. Glucose 111(H) 70 - 99 mg/dL [facility] BUN 30(H) 8 - 27 mg/dL [facility] Creatinine 1.60(H) 0.57 - 1.00 mg/dL [facility] eGFR CKD-EPI CR 2020 34(L) >59 mL/min/1.7 3 [facility] BUN/Creatinine Ratio 19 12 - 28 [facility] Sodium 141 134 - 144 mmol/L [facility] Potassium 4.8 3.5 - 5.2 mmol/L [facility] Chloride 102 96 - 106 mmol/L [facility] Bicarbonate (CO2) 21 20 - 29 mmol/L [facility] Calcium 9.2 8.7 - 10.3 mg/dL [facility] Albumin 4.3 3.9 - 4.9 g/dL [facility] Phosphorus 3.8 3.0 - 4.3 mg/dL [facility] Blood Venous blood / Unknown 06/17/2025 8:21 AM EDT 06/17/2025 Leonardo Stovall DO LAB BLOOD ORDERABLES Final Resu lt [facility] [address] [place] [address] * (ABNORMAL) Microscopic Examination (05/02/2025 8:51 AM EDT) WBC, Urine 0-5 0 - 5 /hpf [facility] RBC, Urine None seen 0 - 2 /hpf [facility] Squamous Epithelial, Urine >10(A) 0 - 10 /hpf [facility] Casts None seen None seen /lpf [facility] Bacteria, Urine Many(A) None seen/Few [facility] 05/02/2025 8:51 AM EDT 05/02/2025 us Leonardo Stovall DO LAB MICROBIOLOGY - GENERAL GLEN MENDEZ Final Result [facility] [address] [place] [address] * (ABNORMAL) Urinalysis with microscopic (05/02/2025 8:51 AM EDT) Specific [place], Urine 1.013 1.005 - 1.030 [facility] pH Urine 7.0 5.0 - 7.5 [facility] Color, Urine Yellow Yellow [facility] Appearance Urine Cloudy(A) Clear [facility] WBC Esterase Urine Negative Negative [facility] Protein, Ur Negative Negative/Tra ce [facility] Glucose, Ur Negative Negative [facility] [phone] Ketones, Urine Negative Negative [facility] Blood Urine Negative Negative [facility] [phone] Bilirubin Urine Negative Negative [facility] Urobilinogen Urine 0.2 0.2 - 1.0 mg/dL [facility] Nitrite, Urine Negative Negative [facility] [phone] Microscopic Examination Comment [facility] Comment:Microscopic follows if indicated. Other Microsc. Observations See below: [facility] Comment:Microscopic was holland cated and was performed. 05/02/2025 8:51 AM EDT 05/02/2025 us Leonardo Stovall DO LAB URINE ORDERABLES Final Resu lt [facility] [address] [place] [address] from Last 3 Months Insurance [facility] Medicare Care Teams Meter Technician Relationship Specialty Start Date End Date Sugey Rice MD [address] [facility] [address] [place] [address] PCP - General Family Medicine 09/04/21
--- OUTSIDE RECORDS SUMMARY | 2025-07-19 14:18 | XMS_ITS | Encounter Summary ---
Author Organization Formerly [facility] Address [address] [place] [address] Care Team Providers Care Test Desk Trouble Locator Name Role Phone Sugey Rice MD Primary Care Provider [phone] Encounter Details Date Type Department Care Team ([facility] st Contact Info) Description 07/12/2025 Telephone [facility] Medical Weight Loss [place] [address] [facility] [address] [place] [address] Lissy Pringle, DENISE [address] [facility] [address] [place] [phone] Social History Tobacco Use Types Packs/Day Years [...] more drinks on one occasion? Never 03/16/2024 [facility] [place] of Occupat ional Health - Occupational Stress Questionnaire Answer Date Recorded Do you feel stress - tense, restless, nervous, or anxious, or unable to sleep at night because your mind is troubled all the time - these days? To some extent 06/06/2025 Physical Activity Answer Date Recorded On average, how many days pe r week do you engage in moderate to strenuous exercise (like a brisk walk)? 5 days 06/06/2025 On average, how many minutes do you exercise per day at this level? 30 min 06/06/2025 Comments Unknown Sex and Gender Information Value [...] Description 08/19/2025 10:00 AM EDT Office Visit [facility] Medical Weight Loss [place] [address] [place] [address] Lissy Pringle APRN [address] [place] [address] 09/09/2025 2:30 PM EDT Clinical Support [facility] Nutrition [place] [address] [place] [address] Roopa Beckman, RD [address] [place] [phone] documented as of this encounter Visit Diagnoses Not on filedocumented in this encounter Care Teams Test Desk Trouble Locator Relationship Specialty Start Date End Date Sugey Rice MD [address] [facility] [address] [place] [address] PCP - General Family Medicine 05/05/23 documented as of this encounter
--- OUTSIDE RECORDS SUMMARY | 2025-07-19 14:18 | XMS_ITS | Encounter Summary ---
Author Organization [facility] Address [address] [place] [address] Care Team Providers Care Provider Relations Manager Name Role Phone Sugey Rice MD Primary Care Provider [phone] Encounter Details Date Type Department Care Team ([facility] st Contact Info) Description 07/19/2025 Telephone [facility] MEDICAL WEIGHT LOSS [address] [place] [phone] Lissy Pringle, DENISE [address] [place] [address] [address] [place] [phone] Social History Tobacco Use Types Packs/Day Years [...] more drinks on one occasion? Never 03/16/2024 [facility] [place] of Occupat ional Health - Occupational Stress [...] Description 08/19/2025 10:00 AM EDT Office Visit [facility] Medical Weight Loss [place] [address] [place] [address] Lissy [facility]ringle APRN [address] [facility] [address] [place] [address] 09/09/2025 2:30 PM EDT Clinical Support [facility] Nutrition [place] [address] [facility] [address] [place] [address] Roopa Beckman, RD [address] [place], [place] [address] documented as of this encounter Visit Diagnoses Not on filedocumented in this encounter Care Teams Provider Relations Manager Relationship Specialty Start Date End Date Sugey Rice MD [address] [facility] [address] [place] [address] PCP - General Family Medicine 05/05/23 documented as of this encounter
--- OUTSIDE RECORDS SUMMARY | 2025-07-19 14:18 | XMS_ITS | Encounter Summary ---
Author Organization [facility] Address [address] [place] [address] Phone Care Team Providers Care Beater Dumper Name Role Phone Sugey Rice MD Primary Care Provider [phone] Encounter Details Date Type Department Care Team (Late st Contact Info) Description 04/28/2024 Documentation Only [facility] [place], [address] [place] [address] Leonardo Stovall DO [address] [facility] [place] [address] Social History Tobacco Use Types [...] Visit [facility] [address] [place] [phone] Leonardo Stovall DO [address] [facility] [place] [address] documented as of this encounter Visit Diagnoses Not on filedocumented in this encounter Care Teams Beater Dumper Relationship Specialty Start Date End Date Sugey Rice MD [address] [address] PCP - General Family Medicine 09/04/21 documented as of this encounter
--- OUTSIDE RECORDS SUMMARY | 2025-07-19 14:18 | XMS_ITS | Encounter Summary ---
Author Organization [facility] Address [address] [place] [address] Care Team Providers Care Poultry Raiser Name Role Phone Sugey Rice MD Primary Care Provider [phone] Reason for Visit * Reason Comments Appointment Encounter Details Date Type Department Care Team (Late st Contact Info) Description 02/05/[address] [address] Josef Loya MD [address] [place] [address] Appointment Social History Tobacco Use Types Packs/Day [...] Description 08/19/2025 10:00 AM EDT Office Visit [facility] Medical Weight Loss [place] [address] [facility] [address] [place] [phone] Lissy Prinlge APRN 7 [facility] [address] [place] [address] 09/09/2025 2:30 PM EDT Clinical Support [facility] Nutrition [place] [address] [place] [address] Roopa Beckman, RD 330 [place] [address] documented as of this encounter Visit Diagnoses Not on filedocumented in this encounter Care Teams Poultry Raiser Relationship Specialty Start Date End Date Sugey Rice MD [address] [facility] [address] [place] [address] PCP - General Family Medicine 05/05/23 documented as of this encounter
--- OUTSIDE RECORDS SUMMARY | 2025-07-19 14:18 | XMS_ITS | Encounter Summary ---
Author Organization [facility] Address [address] [place] [address] Care Team Providers Care Balance Truing Inspector Name Role Phone Sugey Rice MD Primary Care Provider [phone] Encounter Details Date Type Department Care Team (Late st Contact Info) Description 09/23/2024 Scanned Document [facility] [address] [phone] Gurjit Steele MD [address] [place] [address] [place] [address] Social History Tobacco Use Types Packs/Day Years [...] Description 08/19/2025 10:00 AM EDT Office Visit [facility] Medical Weight Loss [place] [address] [place] [address] Lissy Pringle APRN [address] [place] [address] 09/09/2025 2:30 PM EDT Clinical Support [facility] Nutrition [place] [address] [facility] [facility] [address] [place] [address] Roopa Beckman, RD [address] [place] [address] documented as of this encounter Visit Diagnoses Not on filedocumented in this encounter Care Teams Balance Truing Inspector Relationship Specialty Start Date End Date Sugey Rice MD [address] [place] [address] PCP - General Family Medicine 05/05/23 documented as of this encounter
--- OUTSIDE RECORDS SUMMARY | 2025-07-19 14:18 | XMS_ITS | Encounter Summary ---
Author Organization [facility] Address [address] [place] [address] Care Team Providers Care Therapist Speech Name Role Phone Sugey Rice MD Primary Care Provider [phone] Reason for Visit * Reason Comments Other Pre-op Encounter Details Date Type Department Care Team ([facility] st Contact Info) Description 03/15/2024 Telephone [facility] Urologic Surgery [place] [address] [address] Josef Loya MD [address] [place] [address] Other (Pre-op ) Social History Tobacco Use [...] Description 08/19/2025 10:00 AM EDT Office Visit [facility] Medical Weight Loss [place] [address] [phone] Lissy Pringle APRN [address] [address] 09/09/2025 2:30 PM EDT Clinical Support [facility] Nutrition [place] [address] [phone] Roopa Beckman, RD [address] [place] [address] documented as of this encounter Visit Diagnoses Not on filedocumented in this encounter Care Teams Therapist Speech Relationship Specialty Start Date End Date Sugey Rice MD [address] [place] [address] PCP - General Family Medicine 05/05/23 documented as of this encounter
--- OUTSIDE RECORDS SUMMARY | 2025-07-19 14:18 | XMS_ITS | Encounter Summary ---
Author Organization [facility] Address [address] [place] [address] Phone Care Team Providers Care Cocoa Roaster Name Role Phone Sugey Rice MD Primary Care Provider [phone] Encounter Details Date Type Department Care Team (Late st Contact Info) Description 03/14/2025 Telephone [facility] [place], [address] [address] [place] Vele[place] Social History Tobacco Use Types Packs/Day Years [...] Office Visit [facility] [place] [address] [facility] [place] [address] Leonardo Stovall, DO [address] [place] [address] documented as of this encounter Visit Diagnoses Not on filedocumented in this encounter Care Teams Cocoa Roaster Relationship Specialty Start Date End Date Sugey Rice MD [address] [phone] PCP - General Family Medicine 09/04/21 documented as of this encounter
--- OUTSIDE RECORDS SUMMARY | 2025-07-19 14:18 | XMS_ITS | Encounter Summary ---
Author Organization [facility] Address [address] [place] [address] Phone Care Team Providers Care Oracle Data Warehouse Developer Name Role Phone Sugey Rice MD Primary Care Provider [phone] Encounter Details Date Type Department Care Team (Late st Contact Info) Description 03/19/2024 Documentation Only [facility] [place], [address] [place] [address] [place], [place] [address] [place] [phone] Social History Tobacco Use Types Packs/Day Years [...] [facility] [address] [place] [address] Leonardo Stovall [address] [facility] [place] [address] documented as of this encounter Visit Diagnoses Not on filedocumented in this encounter Care Teams Oracle Data Warehouse Developer Relationship Specialty Start Date [place] [address] [address] PCP - General Family Medicine 09/04/21 documented as of this encounter
--- OUTSIDE RECORDS SUMMARY | 2025-07-19 14:18 | XMS_ITS | Encounter Summary ---
Author Organization [facility] Address [address] [place] [address] Phone Care Team Providers Care Joiner Name Role Phone Sugey Rice MD Primary Care Provider [phone] Encounter Details Date Type Department Care Team (Late st Contact Info) Description 07/22/2023 Documentation Only [facility] [place], [address] [place] [address] Leonardo Stovall DO [address] [place] [address] Social History Tobacco Use Types [...] Visit [facility] [address] [place] [phone] Leonardo Stovall DO [address] [place] [address] documented as of this encounter Visit Diagnoses Not on filedocumented in this encounter Care Teams Joiner Relationship Specialty Start Date End Date Sugey Rice MD [address] [address] PCP - General Family Medicine 09/04/21 documented as of this encounter
--- OUTSIDE RECORDS SUMMARY | 2025-07-19 14:18 | XMS_ITS | Clinical Summary ---
Author Organization [facility] Address [address] [place] [address] Care Team Providers Care Vp & General Counsel Name Role Phone Sugey Rice MD Primary Care Provider [phone] Allergies Active Allergy Reactions Criticality Noted Date Comments Amoxicillin Itching Low 05/05/2023 Ciprofloxacin Hives Medium 05/05/2023 Latex Other (See Comments) 09/06/2021 Medications amLODIPine (NORVASC) 5 MG tablet Take 0.5 tablets (2.5 mg total) by mouth nightly. 4 Active Cholecalciferol (Vitamin D) 50 MCG (2000 UT) tablet nightly. Active levothyroxine (SYNTHROID, LEVOTHROID) 75 MCG tablet nightly. 4 Active lisinopril (PRINIVIL,ZeSTRI L) 10 MG tablet Take 1 tablet (10 mg total) by mouth nightly. 4 Active OMEprazole (PriLOSEC) 40 MG capsule every morning. Activ e Potassium Citrate ER 15 MEQ (1620 MG) Tab CR 40 mEq 2 times a day. Active ivermectin (SOOLANTRA) 1 % cream as needed. 4 Active diclofenac (VOLTAREN) 1 % gel as needed. Active Acetaminophen (TYLENOL PO) Take by mouth as needed. Active Probiotic Product (PROBIOTIC PO) Take by mouth nightly. Active oxyCODONE (ROXICODONE) 5 MG immediate release tabletIndication s:Kidney stone Take 1 tablet (5 mg total) by mouth 4 times daily (every 6 hours) as needed for severe pain. Max Daily Amount: 20 mg 6 tablet 4 Active Additional Information Patient not taking.Reported on 06/29/2025 phenazopyridine (PYRIDIUM) 200 MG tabletIndication s:Kidney stone Take 1 tablet (200 mg total) by mouth 3 (three) times a day in the morning, mid-day and early evening. 10 tablet 4 Active Additional Information Patient not taking.Reported on 06/29/2025 tamsulosin (FLOMAX) 0.4 MG capsuleIndicatio ns:Kidney stone Take 1 capsule (0.4 mg total) by mouth daily. 14 capsule 4 Active Additional Information Patient not taking.Reported on 06/29/2025 docusate sodium (COLACE) 100 MG capsuleIndicatio ns:Kidney stone Take 1 capsule (100 mg total) by mouth 2 (two) times a day. 20 capsule 4 Active Additional Information Patient not taking.Reported on 06/29/2025 oxyCODONE-acetam inophen (PERCOCET) 5-325 mg per tabletIndication s:CMC arthritis Take 1 tablet by mouth Every 4 (four) to 6 (six) hours as needed for severe pain. Max Daily Amount: 6 tablets 20 tablet 4 Active Additional Information Patient not taking.Reported on 06/29/2025 losartan (COZAAR) 50 MG tablet Take 1 tablet (50 mg total) by mouth. Active amLODIPine-benaz epril (LOTREL) 5-10 mg per capsule Take by mouth. Activ e apixaban (ELIQUIS) 5 MG tablet Take 1 tablet (5 mg total) by mouth. 4 Active pravastatin (PRAVACHOL) 40 MG tablet Take 1 tablet (40 mg total) by mouth. 5 Active tirzepatide (Zepbound) 2.5 mg/0.5 mL subcutaneous injectionIndicat ions:Obesity, Class III, BMI 40-49.9 (morbid obesity) (HCC),Pre-diabet es,YOSHI on CPAP Inject 0.5 mL (2.5 mg total) under the skin every 7 days. 2 mL 1 5 Active rosuvastatin (CRESTOR) 10 MG tablet Take 1 tablet every day by oral route at bedtime for 90 days. 5 Active spironolactone (ALDACTONE) 25 MG tablet Take 1 tablet (25 mg total) by mouth. 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 05/19/2025 Neck pain 05/19/2025 Osteoarthritis of right subtalar joint Mild CAD 04/20/2025 Venous insufficiency 12/01/2024 Pulmonary hypertension 11/26/2024 Lung nodule 10/20/2024 Moderate persistent asthma 10/20/2024 Restrictive lung disease 10/20/2024 Prediabetes 10/07/2024 Ovarian cyst 02/16/2024 Overview (05/19/2025): rt side .9 cm Superficial phlebitis and th rombophlebitis of right lower extremity 11/25/2023 Morbid obesity with BMI of 40.0-44.9, adult 09/17 Pruritus 12/20/2021 Actinic keratosis 09/10/2021 Capillary disease 09/10/2021 Stage 3a chronic kidney disease 09/07/2021 Vitamin D deficiency 09/06/2021 Melanocytic nevi, unspecified 11/22/2020 Other benign neoplasm of ski n of right lower limb, including hip 11/22/2020 Other benign neoplasm of skin of trunk [place] or callus 11/22/2020 Other seborrheic keratosis 11/22/2020 Other pruritus 11/22/2020 Tubular adenoma 04/03/2020 Other rosacea 06/10/2017 Other specified health status 06/10/2017 Senile hyperkeratosis 03/24/2017 Melanocytic nevus of upper extremity 03/31/2016 Varicose veins of bilateral lower extremities with other complications 09/17/2003 Overview (05/19/2025): vein stripping 09/2003, 01/2004 have had superficial phlebitis last occurring 10/2023 Encounters Date Type Department Care Team Description 07/19/2025 Telephone [facility] [address] [place] [phone] Lissy Pringle, DIE CAST PATTERNMAKER 07/12/2025 Telephone [facility] Medical Weight Loss [place] [address] [phone] Lissy Pringle, DIE CAST PATTERNMAKER 07/08/2025 3:00 PM EDT Clinical Support [facility] Nutrition [place] [address] [facility] [address] [place] [address] Lissy Pringle, DIE CAST PATTERNMAKER Roopa Beckman RD Obesity, Class III, BMI 40-49.9 (morbid obesity) (HCC) (Primary Dx); BMI 40.0-44.9, adult (HCC); Pre-diabetes; YOSHI on CPAP; Dietary counseling 07/08/2025 Travel 06/29/2025 10:30 AM EDT Office Visit [facility] Urology [address] [phone] Josef Loya MD Kidney stone (Primary Dx); Uric acid stone in urine 06/29/2025 Travel 06/13/2025 11:35 AM EDT - 06/13/2025 11:59 PM EDT Hospital Encounter [facility] Radiology [facility] [address] [place] [phone] Josef Loya MD Discharge Disposition: Home or Self Care 06/13/2025 Travel 06/06/2025 2:20 PM EDT Office Visit [facility] Medical Weight Loss [address] [phone] Lissy Pringle, DIE CAST PATTERNMAKER Obesity, Class III, BMI 40-49.9 (morbid obesity) (HCC) (Primary Dx); Pre-diabetes; YOSHI on CPAP-mild 06/06/2025 Travel 05/24/2025 Telephone [facility] [address] [place] [phone] Klarissa Lozoya RN 05/19/2025 9:00 AM EDT Consult [facility] Loss [address] [place] [address] Sharda Jessica APRN Klein, Abigail L, APRN Obesity, Class III, BMI 40-49.9 (morbid obesity) ([facility]) (Primary Dx); Pre-diabetes; YOSHI on CPAP-mild 05/19/2025 Travel 04/20/2025 2:35 PM EDT Ancillary [place] [facility] [address] Gurjit Steele MD 04/20/2025 2:30 PM EDT Office [place] [facility] [address] Gurjit Steele MD Trigger index finger of right hand (Primary Dx); CMC arthritis; Elbow pain, right from Last 3 Months Social History Tobacco [...] more drinks on one occasion? Never 03/16/2024 [facility] of Occupat ional Health - Occupational Stress [...] Sign Reading Time Taken Comments Blood Pressure 131/81 06/06/2025 2:22 PM EDT Pulse 71 06/06/2025 2:22 PM EDT Temperature 36.6 C (97.8 F) 03/29/2024 1:30 PM EDT Respiratory Rate 18 03/29/2024 1:30 PM EDT Oxygen Saturation 93% 03/29/2024 1:30 PM EDT Inhaled Oxygen Concentration - - Weight 123 kg (271 lb 3.2 oz) 07/08/2025 3:47 PM EDT Height 167.6 cm (5' 6 ) 06/29/2025 10:32 AM EDT per pt Body Mass Index 43.77 06/29/2025 10:32 AM EDT Plan of Treatment Upcoming Encounters Date Type Department Care Team (Late st Contact Info) Description 08/19/2025 10:00 AM EDT Office Visit [facility] [place] [address] [facility] [address] [place] [address] Lissy Pringle, DIE CAST PATTERNMAKER [address] [facility] [address] [place] [phone] 09/09/2025 2:30 PM EDT Clinical Support [facility] Nutrition [place] [address] [facility] [address] [place] [address] Roopa Beckman, RD [address] [place], [place] [phone] Health Maintenance Due Date Last Done Comments Hepatitis C Virus Screening 1955 DTaP/Tdap/Td Vaccines (1 - Tdap) 1974 Pneumococcal Vaccines 50+ (1 of 2 - PCV) 1974 Mammogram 1995 Colonoscopy 2000 Zoster (Shingles) Vaccine (1 of 2) 2005 RSV Vaccine 60 years and older and Patients (1 - Risk 60-74 years 1-dose series) 2015 DXA Bone Density (Females,Ages 65 and older) 2020 Influenza Vaccine 06/17/2025 08/03/2024, , 07/20/2023, Additional history exists COVID-19 Vaccine ( season) 2025 08/11/2024, 08/02/2023, 08/03/2022, Additional history exists Advance Care Planning Completed 06/13/2025 Hepatitis B Vaccines Aged Out No long er eligible based on patient's age to complete this topic Medical Devices Explanted Type [employer] Officer Device Identifier Shelf Expiration Date Model / Serial / Lot [id number] Stent Ureteral 6fr 26cm Taper Tip Bldr Benjie Lp Contour Hdr+ - [id number] Implanted:Qty : 1 on 03/29/2024 by Josef Loya MD at [facility] Explanted:Qty : 1 on 04/07/2024 by Josef Loya MD Stent Right: Ureter [employer] DIANA [id number] 11/30/2026 [id number] / / [id number] Procedures Procedure Name Priority Date/Time Associated Diagnosis Comments POCT URINALYSIS DIPSTICK, AUTOMATED Routine 06/29/2025 10:51 AM EDT Kidney stone Uric acid stone in urine US RENAL Routine 06/13/2025 12:07 PM EDT Kidney stone XR ELBOW 3+ VIEWS-RIGHT Routine 04/20/2025 2:40 PM EDT Trigger index finger of right hand from Last 3 Months Results * POCT Urinalysis Dipstick, Automated (06/29/2025 10:51 AM EDT) Source, UA Voided Color, UA Yellow Yellow & Clear, Yellow Clarity, UA Clear Clear Glucose, UA Negative Negative Bilirubin, UA Negative Negative Ketones, UA Negative Negative Spec Grav, UA 1.010 1.005, 1.010, 1.015, 1.020, 1.025 Blood, UA Negative Negative pH, UA 7.0 5.0, 5.5, 6.0, 6.5, 7.0, 7.5, 8.0 Protein, UA Negative Negative Urobilinogen, UA 0.2 0.2, 1.0 Nitrite, UA Negative Negative Leukocyte Esterase, UA Negative Negative Lot Number [id number] Tank Refinisher Pass Pass Urine 06/29/2025 10:5 1 AM EDT Josef Loya MD POINT OF CARE TEST ORDERABL ES Final Result * US Renal (06/13/2025 12:07 PM EDT) Anatomical Region Laterality Modality Abdomen Ultrasound 06/13/2025 1:28 PM EDT Impressions 06/13/2025 1:30 PM EDT Unremarkable examination. Narrative 06/13/2025 1:30 PM EDT EXAM: US RENAL on 06/13/2025 11:29 AM CLINICAL HISTORY: hx of renal stone. COMPARISONS: None FINDINGS: RIGHT KIDNEY: 10.9 cm long. No hydronephrosis, renal calculi or mass was seen. LEFT KIDNEY: 10.8 cm long. No hydronephrosis, renal calculi or mass was seen. URINARY BLADDER: Prevoid volume is 277 cc. No gross abnormality prevoid. Postvoid volume is 1.9 cc. Both ureteral jets were seen. Incidentally seen was a 1.1 x 1.0 x 1.1 cm splenic cyst. Procedure Note Benny Greenberg MD - 06/13/2025 EXAM: US RENAL on 06/13/2025 11:29 AM CLINICAL HISTORY: hx of renal stone. COMPARISONS: None FINDINGS: RIGHT KIDNEY: 10.9 cm long. No hydronephrosis, renal calculi or mass wasseen. LEFT KIDNEY: 10.8 cm long. No hydronephrosis, renal calculi or masswas seen. URINARY BLADDER: Prevoid volume is 277 cc. No gross abnormality prevoid.Postvoid volume is 1.9 cc. Both ureteral jets were seen. Incidentally seen was a 1.1 x 1.0 x 1.1 cm splenic cyst. IMPRESSION: Unremarkable examination. Josef Loya MD IMG US ORDERABLES Final Res ult * XR Elbow 3+ views-Right (04/20/2025 2:40 PM EDT) Narrative OA - 04/20/2025 2:40 PM EDT This exam was performed in office at [facility] and images reviewed by orthopedic provider. Any findings are documented within ambulatory encounter note on date of service. us Gur[facility] DERABLES Final Result [facility] from Last 3 Months Insurance [facility] [place] [place] [address] [place] [id number] MEDICARE PART A & B [facility] [address] MEDICARE PART A & B [facility] Advance Directives Documents on File Type Date Recorded Patient Economics Instructor Expl anation Advance Directive-Scan 06/13/2025 BACK OF IMPLANT CARD Care Teams Vp & General Counsel Relationship Specialty Start Date End Date Sugey Rice MD [address] [facility] [address] [place] [address] PCP - General Family Medicine 05/05/23
--- OUTSIDE RECORDS SUMMARY | 2025-07-19 14:18 | XMS_ITS | Encounter Summary ---
Author Organization [facility] Address [address] [place] [address] Care Team Providers Care Saw Sharpener Name Role Phone Sugey Rice MD Primary Care Provider [phone] Encounter Details Date Type Department Care Team (Late st Contact Info) Description 05/29/2023 Scanned Document [facility] [address] [phone] Leif Reed MD [address] [place] [address] Social History Tobacco Use Types Packs/Day Years [...] Description 08/19/2025 10:00 AM EDT Office Visit [facility] Medical Weight Loss [place] [address] [place] [phone] Lissy Pringle APRN [address] [place] [phone] 09/09/2025 2:30 PM EDT Clinical Support [facility] Nutrition [place] [address] [place] [phone] Roopa Beckman, RD [address] [place], [place] [phone] documented as of this encounter Visit Diagnoses Not on filedocumented in this encounter Care Teams Saw Sharpener Relationship Specialty Start Date End Date Sugey Rice MD [address] [facility] [address] [place] [address] PCP - General Family Medicine 05/05/23 documented as of this encounter
--- OUTSIDE RECORDS SUMMARY | 2025-07-19 14:18 | XMS_ITS | Encounter Summary ---
Author Organization [facility] Address [address] [place] [address] Phone Care Team Providers Care Electrician Deck Name Role Phone Sugey Rice MD Primary Care Provider [phone] Encounter Details Date Type Department Care Team (Late st Contact Info) Description 07/25/2023 Documentation Only [facility] [place], [address] [place] [address] Leonardo Stovall DO [address] [place] [place] [address] Social History Tobacco Use Types [...] Visit [facility] [address] [place] [phone] Leonardo Stovall DO [address] [facility] [place] [address] documented as of this encounter Visit Diagnoses Not on filedocumented in this encounter Care Teams Electrician Deck Relationship Specialty Start Date End Date Sugey Rice MD [address] [address] PCP - General Family Medicine 09/04/21 documented as of this encounter
--- OUTSIDE RECORDS SUMMARY | 2025-07-19 14:18 | XMS_ITS | Encounter Summary ---
Author Organization [facility] Address [address] [place] [address] Phone Care Team Providers Care Beam House Inspector Name Role Phone Sugey Rice MD Primary Care Provider [phone] Encounter Details Date Type Department Care Team (Late st Contact Info) Description 12/10/2024 Documentation Only [facility] [place], [address] [place] [address] [place], [place] [address] [place] [phone] Social History Tobacco Use Types Packs/Day Years [...] Visit [facility] [address] [place] [address] Leonardo Stovall [address] [place] [address] documented as of this encounter Visit Diagnoses Not on filedocumented in this encounter Care Teams Beam House Inspector Relationship Specialty Start Date End Date Sugey Rice MD [address] [phone] PCP - General Family Medicine 09/04/21 documented as of this encounter
--- OUTSIDE RECORDS SUMMARY | 2025-07-19 14:18 | XMS_ITS | Clinical Summary ---
Author Organization [facility] [address] [facility] Address [address] [place] [address] Phone Care Team Providers Care Natural Resources Specialist Name Role Phone Sugey Rice MD Primary Care Provider [phone] Allergies Active Allergy Reactions Criticality Noted Date [...] 02/09/2025 Gastroesophageal reflux disease 02/09/2025 Dysrhythmias 02/09/2025 Surgical History Surgery Date Site/Laterality Comments COLONOSCOPY [...] 63 02/09/2025 11:38 AM EDT Temperature 36.8 C (98.3 F) 02/09/2025 11:18 AM EDT Respiratory Rate 18 02/09/2025 11:38 AM EDT Oxygen Saturation 95% 02/09/2025 11:38 AM EDT Inhaled Oxygen Concentration - - Weight 118 kg (260 lb) 02/09/2025 10:14 AM EDT Height 167.6 cm (5' 6 ) 02/09/2025 10:14 AM EDT Body Mass Index 41.97 02/09/2025 10:14 AM EDT Plan of Treatment Upcoming Encounters Date Type Department Care Team (Late st Contact Info) Description 08/30/2025 2:00 PM EDT Office Visit Gastroenterology - [address] [place] [address] Nano Brown MD [address] [place] [phone] Health Maintenance Due Date Last Done Comments Cholesterol Screening (Lipid Panel) 10/08/2024 Hepatitis C Screening 10/08/2024 Medicare Annual Wellness Visit 10/08/2024 Social Influencers of Health Screening 10/08/2024 Depression Screening 11/17/2024 COVID-19 Vaccine ( season) 2025 08/11/2024, 08/02/2023, 08/03/2022, Additional history exists Hypertension/CHF/CAD Annual BMP Blood Test 03/22/2025 03/22/2024, 03/03/2024 Influenza Vaccine (#1) 2025 , 07/20/2023, 08/05/2022, Additional history exists Falls Risk Assessment 02/09/2026 02/09/2025 Breast Cancer Screening 11/04/2026 11/04/2024 Osteoporosis Screening (Bone Density Screening) 10/30/2030 10/30/2020 DTaP,Tdap,and Td Vaccines (3 - Td or Tdap) 10/24/2033 10/24/2023, 04/17/2012 Colorectal Cancer Screening: Colonoscopy 02/09/2035 02/09/2025, 07/04/2020 Zoster Vaccines Completed 05/08/2022, 03/2019, 07/19/2014 Pneumococcal Vaccine: 50+ Years Completed 07/17/2022, 07/19/2021, 07/19/2020 RSV Immunization Adult Patients Completed 07/11/2023 HIB Vaccines Aged Out No longer eligi [...] Routine 02/09/2025 11:17 AM EDT Rectal bleeding from Last 3 Months or Most Recently Relevant to Health Maintenance Results * COLONOSCOPY Anesthesia - MAC; [facility] ENDOSCOPY (02/09/2025 11:17 AM EDT) Anatomical [...] dose today. Narrative 02/09/2025 11:19 AM EDT [facility] GI Patient Name: Danita Randle Procedure Date: [...] scope was passed under direct vision. Throughout the procedure, the patient's blood pressure, pulse, and oxygen saturations were monitored continuously.The Colonoscope was introduced through the anus and advanced to the terminal ileum. The colonoscopy was performed without difficulty. The patient tolerated the procedure well. The quality of the bowel preparation was excellent. Findings: The perianal and digital rectal examinations were normal. The terminal ileum appeared normal. Internal hemorrhoids were found during retroflexion. The hemorrhoids were Grade II (internal hemorrhoids that prolapse but reduce spontaneously). The entire examined colon appeared normal. Procedure Code(s): --- Professional --- 18638, Colonoscopy, flexible; diagnostic, including collection of specimen(s) by brushing or washing, when performed (separate procedure) Diagnosis Code(s): --- Professional --- K64.1, Second degree hemorrhoids K62.5, Hemorrhage of anus and rectum CPT copyright 2020 [employer]. All rights reserved. The codes documented in this report are preliminary and upon global account manager review may be revised to meet current compliance requirements. Nano Brown MD 02/09/2025 11:19:10 AM This report has been signed electronically.Nano Brown MD Number of Addenda: 0 Note Initiated On: 02/09/2025 10:56 AM Scope In: Scope Out: Endoscopy Department at [facility] - [address] [place] [phone] Procedure Note Nano Brown MD - 02/09/2025 [facility] GI Patient Name: Danita Randle Procedure Date: [...] appeared normal. Procedure Code(s): --- Professional --- 00764, Colonoscopy, flexible; diagnostic, including collection of specimen(s) by brushing or washing,when performed (separate procedure) Diagnosis Code(s): --- Professional --- K64.1, Second degree hemorrhoids K62.5, Hemorrhage of anus and rectum CPT copyright 2020 [employer]. All rights reserved. The codes documented in this report are preliminary and upon global account manager reviewmay be revised to meet current compliance requirements. Nano Brown MD 02/09/2025 11:19:10 AM This report has been signed electronically.Nano Brown MD Number of Addenda: 0 Note Initiated On: 02/09/2025 10:56 AM Scope In: Scope Out: Endoscopy Department at [facility] - [address] [place] [phone] IMPRESSION: - The examined portion of the ileum was normal. - Internal hemorrhoids. - The entire examined colon is normal. - No specimens collected. Recommendation: - Repeat colonoscopy in 10 years for screening purposes. - Resume Eliquis (apixaban) at prior dose today. Nano Brown MD GI~PROCEDURE ORDERABLES Final Result from Last 3 Months or Most Recently Relevant to Health Maintenance Insurance MEDICARE [employer] Care Teams Natural Resources Specialist Relationship Specialty Start Date End Date Sugey Rice MD [address] [address] PCP - General Family Medicine 10/07/24
== END 2025-07-19 13:48 | disposition home or self-care (01) ==
LOC: HO.HPS 12:59
PROVIDERS: PCP Family Medicine; Visit Provider Hospitalist
DX: G47.33 Obstructive sleep apnea (adult) (pediatric) (principal); I27.20 Pulmonary hypertension, unspecified; R06.09 Other forms of dyspnea; D50.8 Other iron deficiency anemias; J45.20 Mild intermittent asthma, uncomplicated
CPT/HCPCS: 99214; G2211

== ENCOUNTER → 2025-07-19 12:58 | Outpatient (BNVA) | payer MEDICARE, OTHER, SELFPAY | PROVIDERS: PCP Family Medicine; Visit Provider Hospitalist | DX: J45.20 Mild intermittent asthma, uncomplicated (principal); D50.8 Other iron deficiency anemias; R06.09 Other forms of dyspnea; I27.20 Pulmonary hypertension, unspecified; G47.33 Obstructive sleep apnea (adult) (pediatric) | CPT/HCPCS: 99212 ==